=== PATIENT | male | born 1955 | race Caucasian/White ===

== ENCOUNTER 2024-02-28 11:47 | Outpatient (CLI) | payer MEDICARE, BC, SELFPAY ==
--- OUTSIDE RECORDS SUMMARY | 2024-03-04 03:46 | XMS_ITS | Clinical Summary ---
Author Name Unknown Organization [facility] Address [address] [place] [id number] Care Team Providers Care Hitch Technician Name Role Phone Nathalie Tate MD Unavailable [phone] Nathalie Tate MD Primary Care Provider [phone] Allergies Active Allergy Reactions Criticality Noted Date Comments Donepezil Diarrhea Medium 12/08/2023 Hospitalized for diarrhea/dehydration Sulfa Antibiotics Rash Low 03/16/2009 Medications Medication Sig Dispensed Refills Start Date End Date Status Multiple Vitamins-Iron (TAB-A-CATRACHO/IRON) TABSIndications:A lcoholism (H) Take 1 capsule by mouth daily 100 tablet 3 06/03/2019 Suspended Additional Information tamsulosin (FLOMAX) 0.4 MG capsule Take 0.8 mg by mouth every evening 03/17/2020 Suspended thiamine (B-1) 100 MG tablet Take 100 mg by mouth every evening Suspended escitalopram (LEXAPRO) 20 MG tablet Take 60 mg by mouth every evening 01/31/2022 Suspended vitamin D2 (ERGOCALCIFEROL) 48817 units (1250 mcg) capsuleIndication s:Alcoholism (H) Take 1 capsule by mouth once a week 12 capsule 1 10/06/2023 Suspended Additional Information Patient taking differently:50,000 Units Oral WEEKLY,On Saturdays, Reported on 12/25/2023 cyanocobalamin (CYANOCOBALAMIN) 1000 MCG/ML injection Inject 1 mL into the muscle every 30 days Suspended aspirin 81 MG EC tablet Take 81 mg by mouth every morning Suspended phenylephrine (LEATHA-SYNEPHRINE) 1 % nasal spray [place] 1 drop into both nostrils daily as needed for congestion Suspended disulfiram (ANTABUSE) 250 MG tabletIndications :Alcoholism (H) Take 1 tablet (250 mg) by mouth daily 90 tablet 12/31/2023 Suspended Additional Information atorvastatin (LIPITOR) 80 MG tabletIndications :Cerebrovascular accident (CVA), unspecified mechanism (H),Alcoholism (H) Take 1 tablet (80 mg) by mouth every evening 90 tablet 12/31/2023 Suspended Additional Information midodrine (PROAMATINE) 2.5 MG tablet Take 1 tablet by mouth 3 times daily 02/02/2024 Suspended Active Problems Problem Noted Date Diagnosed Date Orthostatic hypotension 02/28/2024 Near syncope 02/28/2024 Stroke 12/24/2023 Dehydration 12/09/2023 Confusion 12/09/2023 Elevated troponin 12/09/2023 Hematuria, unspecified type 12/09/2023 Hypotension, unspecified hypotension type 2021 Syncope, unspecified syncope type 01/19/2022 Anemia, unspecified type 01/19/2022 Acute renal failure superimp osed on chronic kidney disease (H24) 01/19/2022 Unsteady gait when walking 06/21/2021 Loss of motivation 06/21/2021 Dementia 03/20/2021 CKD (chronic kidney disease) stage 3, GFR 30-59 ml/min 12/16/2019 Acute kidney injury (H24) 08/16/2019 Cognitive communication deficit 08/06/2019 History of CVA (cerebrovascu lar accident)--followed by neurology 08/06/2019 Overview: 10/06/2018 Substance induced mood disorder 09/10/2018 Recurrent major depressive disorder (H)- Dr. 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 Provider to review [facility] 09/07/2012 Overview: State Tier Level: Tier 1 Status: n/a Quality Engineer Medical Device: n/a See Letters for [facility] Care Plan Essential hypertension, benign 03/16/2009 Mixed hyperlipidemia 03/16/2009 Personal history of tobacco use, presenting hazards to health 03/16/2009 Migraine 03/26/2003 Overview: Migraine Without Aura Eczema ED (erectile dysfunction)--followed by urology Prediabetes Resolved Problems Problem Noted Date Diagnosed Date Resolved Date Depression 06/21/2021 06/20/2023 Dehydration 04/06/2019 11/19/2021 Major depressive disorder, r ecurrent episode, moderate (H)-DR Valencia 12/24/2017 05/08/2018 SILVANO (acute kidney injury) (H24) 02/06/2017 03/18/2017 Hypomagnesemia 02/06/2017 03/18/2017 Hypokalemia 02/06/2017 03/18/2017 Serum lipase elevation 02/06/201703/18 Alcohol addiction 08/18/2015 03/18/2017 Alcohol dependence in remission 04/05/2015 05/08/2018 Delirium tremens 03/21/2015 03/18/2017 Major depressive disorder, s beverly episode, moderate (H)-Dr Stephens 01/30/2015 12/24/2017 ACP (advance care planning) 08/25/2013 10/26/2018 Overview: Advance Care Planning 06/20/2015: Receipt of ACP document: Received: Health Care Directive which was witnessed or notarized on 03/23/2015. Document not previously scanned. Validation form completed and sent with document to be scanned. Code Status reflects choices in most recent ACP document. Confirmed/documented designated decision maker(s). Added by Porsche Palencia Advance Care Plannin-29-14 ACP Review and Resources Provided: Reviewed chart for advance care plan. Jed Alamo has no plan or code status on file. Discussed available resources and provided with information. Confirmed code status reflects current choices pending further ACP discussions. Confirmed/documented designated decision maker(s). See permanent comments section of demographics in clinical tab. Added by Venita Gutiérrez 02/14/2012 03/06/2012 Overview: Problem list name updated by automated process. Provider to review HTN (hypertension), benign 0 03/16/2009 Hyperlipidemia 03/16/2009 Myasthenia gravis 10/02/2015 Overview: neurology, Dr. Martínez Alcohol abuse, in remission 04/05/2015 Overview: AA weekly Encounters Date Type Department Care Team Description 02/28/2024 12:32 PM CDT - Present Hospital Encounter [facility] [address] [facility] [address] [place] [phone] Khadar Jones MD Wu Klasek, Connie, MD Chen, Isaac Amos MD Moderate dementia associated with alcoholism, without behavioral disturbance, psychotic disturbance, mood disturbance, or anxiety (H) (Primary Dx); Orthostatic hypotension; Near syncope 02/28/2024 Travel 01/29/2024 Telephone [facility] [address] [place] [address] [place] [phone] Nathalie Tate MD Orders (Private Equity Associate) 12/31/2023 4:45 PM CDT Office Visit [facility] [address] [place] [address] Nathalie Tate MD History of CVA (cerebrovascular accident) (Primary Dx); Cerebrovascular accident (CVA), unspecified mechanism (H); Chemical dependency (H); Alcoholism (H) 12/31/2023 Travel 12/30/2023 Telephone [facility] [address] [place] [phone] Nathalie Tate MD Home Care/Hospice ([facility]); Updated Home Care Orders 12/29/2023 Care Coordination [facility] [address] [place] [phone] Nathalie Tate MD Clinic Care Coordination - Post Hospital (CVA) 12/29/2023 MyC Medical Advice [facility] [address] [place] [phone] Conchita Mayo CMA 12/25/2023 9:09 AM PIN INSERTER - 12/25/2023 11:59 PM PIN INSERTER Hospital Encounter [facility] [address] [phone] Marco Watson DO Muthyala, Abijah Hemraj, MD Discharge Disposition: Home or Self Care 12/24/2023 10:04 PM PIN INSERTER - 12/28/2023 11:29 AM CDT Hospital Encounter [facility] [address] [phone] Marco Watson, Brooke Rodriguez MD Cerebrovascular accident (CVA), unspecified mechanism (H) (Primary Dx); Imbalance due to old stroke Discharge Disposition: Home-Health Care Svc 12/24/2023 5:28 PM PIN INSERTER - 12/24/2023 9:33 PM PIN INSERTER Emergency [facility] Emergency Dept [address] [place] [address] Cali Cedillo MD Acute ischemic stroke (H) Discharge Disposition: Another Health Care Institution with Planned Hospital IP Readmission 12/24/2023 Travel 12/17/2023 Telephone [facility] [address] [place] [phone] Nathalie Tate MD 12/16/2023 3:00 PM PIN INSERTER Office Visit [facility] [address] [place] [phone] Clementine Tabares PA-C Dementia, unspecified dementia severity, unspecified dementia type, unspecified whether behavioral, psychotic, or mood disturbance or anxiety (H) (Primary Dx); Dehydration; Unsteady gait when walking; Hematuria, unspecified type; Nephrolithiasis; Pulmonary nodules; History of CVA (cerebrovascular accident); Stage 3 chronic kidney disease, unspecified whether stage 3a or 3b CKD (H); Alcoholism (H); [facility] 12/16/2023 Travel 12/16/2023 Telephone [facility] [address] [place] [address] Nathalie Tate MD Orders ([facility]) 12/12/2023 Care Coordination [facility] [address] [place] [phone] Nathalie Tate MD Clinic Care Coordination - Post Hospital (Unsteady gait, hematuria, dehydration) 12/09/2023 12:30 PM PIN INSERTER - 12/11/2023 2:12 PM PIN INSERTER [facility] Observation Dept [address] [place] [address] Akash Ramirez MD Richardson, Elizabeth, MD Dalsanto, Mariposa Ronquillo MD Unsteady gait when walking (Primary Dx); Dehydration; Syncope, unspecified syncope type; Confusion; Elevated troponin; Hematuria, unspecified type; Dementia (H); Nephrolithiasis Discharge Disposition: Home or Self Care 12/09/2023 Travel from Last 3 Months Immunizations Name Administration Dates Next Due COVID-19 MONOVALENT 12+ (Pfizer) 01/22/2021,12/18 Influenza (H1N1) 09/20/2009 Influenza (IIV3) PF 08/11/2013,09/07/2012,2008 Influenza Vaccine >6 months,quad, PF ,07/27/2020,09/13/2019,2017,08/23/2015 Pneumococcal 23 valent 11/19/2021,08/23/2015 TD,PF 7+ (Tenivac) 10/20/2006,11/19/2003 TDAP Vaccine (Adacel) 12/09/2018 TDAP Vaccine (Boostrix) 03/12/2012 Zoster recombinant adjuvante d (SHINGRIX) 12/16/2019,10/17/2019 Family History Medical History Relation Comments Anxiety Disorder Daughter 1 Hypertension Father Other Cancer Father esophageal Cerebrovascular Disease Mother Hypertension Mother Anxiety Disorder Sister 1 Psychotic Disorder Sister 2 anxiety Depression/Anxiety Sister 3 Autism Spectrum Disorder No family hx of Bipolar Disorder No family hx of C.A.D. No family hx of Cancer - colorectal No family hx of Dementia No family hx of Depression No family hx of Diabetes No family hx of Starr Disease No family hx of Intellectual Disability No family hx of Mental Illness No family hx of Parkinsonism No family hx of Prostate Cancer No family hx of Schizophrenia No family hx of Substance Abuse No family hx of Suicide No family hx of Unknown/Adopted No family hx of Relation Status Comments Daughter 1 Alive Daughter 2 Alive Father Alive Maternal Grandfather Maternal Grandmother Mother CVA Paternal Grandfather Paternal Grandmother Sister 1 Alive Sister 2 Sister 3 Social History Tobacco Use Types Packs/Day Years Used Date Smoking Tobacco: Former Cigarettes 0.5 54.4 S tarted: 10/20/1969 Other Passive Smoke Exposure: Past Smokeless Tobacco: Never Tobacco Cessation:Counseling Given: Not Answered Comments:Recently stopped 12/09/23 Alcohol Use Standard Drinks/Week Comments No 0 (1 standard drink = 0.6 oz pure alcohol) 100ml or more daily; recent relapse 08/18/15 PHQ-2 Answer Date Recorded PHQ-2 Score 1 08/07/2022 Adolescent Education Answer Date Record ed Getting School Help Needed Not on file 07/21 Sex and Gender Information Value Date Recorded Sex Assigned at Not on file Gender Identity Not on file Sexual Orientation Not on file Last Filed Vital Signs Vital Sign Reading Time Taken Comments Blood Pressure 157/72 03/03/2024 8:57 PM CDT Pulse 61 03/03/2024 8:57 PM CDT Temperature 36.8 ??C (98.3 ??F) 03/03/2024 8:57 PM CD T Respiratory Rate 18 03/03/2024 8:57 PM CDT Oxygen Saturation 100% 03/03/2024 8:57 PM CDT Inhaled Oxygen Concentration - - Weight 68.7 kg (151 lb 6.4 oz) 03/03/2024 6:23 A M CDT Height 175.3 cm (5' 9) 02/29/2024 1:15 AM CDT Body Mass Index 22.36 02/29/2024 1:15 AM CDT Plan of Treatment Health Maintenance Due Date Last Done Comments ANNUAL REVIEW OF HM ORDERS 1955 CT COLONOGRAPHY 1956 DEPRESSION ACTION PLAN 1956 FLEX SIG 1956 sDNA (Cologuard) 1955 HEPATITIS A IMMUNIZATION (1 of 2 - Risk 2-dose series) 1975 RSV VACCINE ( & 60+) (1 - 1-dose 60+ series) 2016 FIT 01/20/2023 01/20/2022 PHQ-9 02/05/2023 08/07/2022, 01/19, 09/13/2019, Additional history exists COLONOSCOPY 05/09/2024 05/09/2014 COLORECTAL CANCER SCREENING 05/09/2024 INFLUENZA VACCINE (Season Ended) 2024 08/07/2021, 07/27/2020, 09/13/2019, Additional history exists MEDICARE ANNUAL WELLNESS VISIT 06/20/2024 06/20/2023, 05/07/2018 MICROALBUMIN 06/20/2024 06/20/2023 Pneumococcal Vaccine: 65+ Years (2 of 2 - PCV) 06/20/2024 11/19/2021, 08/23/2015 Postponed from 11/19/2022 (Patient Declined) LUNG CANCER SCREENING 08/05/2024 08/05/2023 , 02/06/2017, 08/19/2015 FALL RISK ASSESSMENT 12/16/2024 12/16/2023, 08/07/2022, 12/09/2018, Additional history exists LIPID 12/23/2024 12/24/2023, 09/0 10/2022, 08/07/2022, Additional history exists BMP 03/03/2025 03/03/2024, 02/17, 03/01/2024, Additional history exists HEMOGLOBIN 03/03/2025 03/03/2024, 02/17, 03/01/2024, Additional history exists GLUCOSE 03/03/2027 03/03/2024, 02/17, 03/01/2024, Additional history exists DTAP/TDAP/TD IMMUNIZATION (3 - Td or Tdap) 12/09/2028 12/09/2018, 03/12/2012, 10/20/2006, Additional history exists ADVANCE CARE PLANNING 12/16/2028 12/16/2023 , 10/26/2018, 10/26/2018, Additional history exists COVID-19 Vaccine (2022- season) 2028 03/07/2022, 09/05/2021, 01/22/2021, Additional history exists Postponed from 06/20/2023 (Not Able to Schedule At This Time) ZOSTER IMMUNIZATION Completed 12/16/2019, 9 HEPATITIS C SCREENING Completed 01/20/2022 , 01/19/2022, 10/31/2015 AORTIC ANEURYSM SCREENING (SYSTEM ASSIGNED) Completed 12/09/2023, 08/16/2019, 02/06/2017, Additional history exists URINALYSIS Completed 12/09/2023, 11/2021, 02/07/2017, Additional history exists HPV IMMUNIZATION Aged Out No longer e ligible based on patient's age to complete this topic IPV IMMUNIZATION Aged Out No longer e ligible based on patient's age to complete this topic MENINGITIS IMMUNIZATION Aged Out No l onger eligible based on patient's age to complete this topic RSV MONOCLONAL ANTIBODY Aged Out No l onger eligible based on patient's age to complete this topic Goals Goal Patient Goal Type Associated Problems Recent Progress Patient-Stated? Author Transportation General On track( 019 3:46 PM PIN INSERTER) Yes Nani Sainz LSW Note: Goal Statement: Caregiver will learn of options for transportation and volunteer respite services. Measure of Success: Caregiver will know if options are available. Supportive Steps to Achieve: CC will send resources via text and caregiver will call. Barriers: recently moved home after rehab. Strengths: Caregiver works, just started with adult [employer] [facility] today, 1-9 Date to Achieve By: January 17, 2019 Patient expressed understanding of goal: caregiver understands. Procedures The patient is currently admitted. The information in this section might not be complete until the patient is discharged. Procedure Name Priority Date/Time Associated Diagnosis Comments CBC WITH PLATELETS Routine 03/03/2024 1: 00 PM CDT BASIC METABOLIC PANEL Routine 03/03/2024 12:59 PM CDT FOLATE Routine 03/02/2024 10:45 AM CDT CBC WITH PLATELETS Routine 03/02/2024 10 :45 AM CDT BASIC METABOLIC PANEL Routine 03/02/2024 10:45 AM CDT VITAMIN B12 Add-On 03/01/2024 12:50 PM CDT TSH WITH FREE T4 REFLEX Add-On 03/01/2024 12:50 PM CDT CBC WITH PLATELETS Routine 03/01/2024 12 :50 PM CDT BASIC METABOLIC PANEL Routine 03/01/2024 12:50 PM CDT CBC WITH PLATELETS & DIFFERENTIAL Routine 02/29/2024 5:44 AM CDT CBC WITH PLATELETS AND DIFFERENTIAL Routine 02/29/2024 5:44 AM CDT BASIC METABOLIC PANEL Routine 02/29/2024 5:44 AM CDT MR BRAIN W/O & W CONTRAST STAT 02/28/2024 10:19 PM CDT CTA HEAD NECK W CONTRAST STAT 02/28/2024 5:[address] HEAD W/O CONTRAST STAT 02/28/2024 5:47 PM CDT AMMONIA STAT 02/28/2024 4:33 PM CDT CBC WITH PLATELETS & DIFFERENTIAL STAT 02/28/2024 1:00 PM CDT EXTRA RED TOP TUBE STAT 02/28/2024 1: 00 PM CDT EXTRA BLUE TOP TUBE STAT 02/28/2024 1 :00 PM CDT CBC WITH PLATELETS AND DIFFERENTIAL STAT 02/28/2024 1:00 PM CDT TROPONIN T, HIGH SENSITIVITY STAT 02/28/2024 1:00 PM CDT ETHYL ALCOHOL LEVEL STAT 02/28/2024 1 :00 PM CDT COMPREHENSIVE METABOLIC PANEL STAT 02/28/2024 1:00 PM CDT EXTRA TUBE STAT 02/28/2024 1:00 PM CDT IA COLLECTION VENOUS BLOOD VENIPUNCTURE Routine 12/31/2023 4:55 PM CDT History of CVA (cerebrovascular accident) COMPREHENSIVE METABOLIC PANEL (BFP) Routine 12/31/2023 History of CVA (cerebrovascular accident) HEMOGRAM PLATELET DIFF (BFP) Routine 12/31/2023 History of CVA (cerebrovascular accident) GLUCOSE BY METER Routine 12/28/2023 8:20 AM CDT GLUCOSE BY METER Routine 12/28/2023 12:0 8 AM PIN INSERTER BASIC METABOLIC PANEL Routine 12/27/2023 7:46 AM PIN INSERTER GLUCOSE BY METER Routine 12/26/2023 10:0 8 PM PIN INSERTER GLUCOSE BY METER Routine 12/26/2023 5:25 PM PIN INSERTER GLUCOSE BY METER Routine 12/26/2023 12:0 9 PM PIN INSERTER GLUCOSE BY METER Routine 12/26/2023 7:41 AM PIN INSERTER GLUCOSE BY METER Routine 12/26/2023 1:56 AM PIN INSERTER GLUCOSE BY METER Routine 12/25/2023 10:[address] HEAD W/O CONTRAST Routine 12/25/2023 7:00 PM PIN INSERTER GLUCOSE BY METER Routine 12/25/2023 1:36 PM PIN INSERTER EEG AWAKE OR DROWSY ROUTINE Routine 12/25/2023 11:21 AM PIN INSERTER GLUCOSE BY METER Routine 12/25/2023 8:49 AM PIN INSERTER ECHO COMPLETE Routine 12/25/2023 8:16 AM PIN INSERTER EKG 12-LEAD, TRACING ONLY Routine 12/25/2023 6:38 AM PIN INSERTER PARTIAL THROMBOPLASTIN TIME Routine 12/25/2023 5:21 AM PIN INSERTER INR Routine 12/25/2023 5:21 AM PIN INSERTER BASIC METABOLIC PANEL Routine 12/25/2023 5:21 AM PIN INSERTER CBC WITH PLATELETS Routine 12/25/2023 5: 21 AM PIN INSERTER MR BRAIN W/O CONTRAST Routine 12/25/2023 4:14 AM PIN INSERTER LIPID REFLEX TO DIRECT LDL PANEL STAT 12/24/2023 11:28 PM PIN INSERTER HEMOGLOBIN A1C STAT 12/24/2023 11:28 PM PIN INSERTER GLUCOSE BY METER Routine 12/24/2023 11:0 9 PM PIN INSERTER EKG 12-LEAD, TRACING ONLY STAT 12/24/2023 6:55 PM PIN INSERTER AMMONIA STAT 12/24/2023 5:56 PM PIN INSERTER CTA HEAD NECK W CONTRAST STAT 12/24/2023 5:[address] HEAD W/O CONTRAST STAT 12/24/2023 5:48 PM PIN INSERTER CBC WITH PLATELETS & DIFFERENTIAL STAT 12/24/2023 5:42 PM PIN INSERTER HEPATIC FUNCTION PANEL STAT 5:42 PM PIN INSERTER ETHYL ALCOHOL LEVEL STAT 12/24/2023 5 :42 PM PIN INSERTER CBC WITH PLATELETS AND DIFFERENTIAL STAT 12/24/2023 5:42 PM PIN INSERTER TROPONIN T, HIGH SENSITIVITY STAT 12/24/2023 5:42 PM PIN INSERTER PARTIAL THROMBOPLASTIN TIME STAT 12/24/2023 5:42 PM PIN INSERTER INR STAT 12/24/2023 5:42 PM PIN INSERTER BASIC METABOLIC PANEL STAT 12/24/2023 5:42 PM PIN INSERTER GLUCOSE BY METER STAT 12/24/2023 5:38 PM PIN INSERTER MAGNESIUM Routine 12/11/2023 5:00 AM PIN INSERTER PHOSPHORUS Routine 12/11/2023 5:00 AM PIN INSERTER POTASSIUM Routine 12/11/2023 5:00 AM PIN INSERTER MAGNESIUM Timed 12/10/2023 1:45 PM PIN INSERTER CBC WITH PLATELETS & DIFFERENTIAL STAT 12/10/2023 5:52 AM PIN INSERTER CBC WITH PLATELETS AND DIFFERENTIAL STAT 12/10/2023 5:52 AM PIN INSERTER MAGNESIUM Routine 12/10/2023 5:52 AM PIN INSERTER PHOSPHORUS Routine 12/10/2023 5:52 AM PIN INSERTER HEPATIC FUNCTION PANEL Routine 5:52 AM PIN INSERTER BASIC METABOLIC PANEL Routine 12/10/2023 5:52 AM PIN INSERTER MR BRAIN W/O & W CONTRAST STAT 12/09/2023 9:30 PM PIN INSERTER INFLUENZA A/B, RSV, & SARS-COV2 PCR STAT 12/09/2023 8:18 PM PIN INSERTER XR CHEST 2 VIEWS STAT 12/09/2023 3:44 PM PIN INSERTER TROPONIN T, HIGH SENSITIVITY STAT 12/09/2023 3:[address] ABDOMEN PELVIS W/O CONTRAST STAT 12/09/2023 2:[address] HEAD W/O CONTRAST STAT 12/09/2023 2:53 PM PIN INSERTER EKG 12-LEAD, TRACING ONLY STAT 12/09/2023 2:19 PM PIN INSERTER BLOOD CULTURE STAT 12/09/2023 1:52 PM PIN INSERTER CBC WITH PLATELETS & DIFFERENTIAL STAT 12/09/2023 1:15 PM PIN INSERTER BLOOD CULTURE STAT 12/09/2023 1:15 PM PIN INSERTER D DIMER QUANTITATIVE STAT 12/09/2023 1:15 PM PIN INSERTER ETHYL ALCOHOL LEVEL STAT 12/09/2023 1 :15 PM PIN INSERTER MAGNESIUM Add-On 12/09/2023 1:15 PM PIN INSERTER EXTRA RED TOP TUBE STAT 12/09/2023 1: 15 PM PIN INSERTER EXTRA BLUE TOP TUBE STAT 12/09/2023 1 :15 PM PIN INSERTER CBC WITH PLATELETS AND DIFFERENTIAL STAT 12/09/2023 1:15 PM PIN INSERTER EXTRA TUBE STAT 12/09/2023 1:15 PM PIN INSERTER LACTIC ACID WHOLE BLOOD STAT 12/09/2023 1:15 PM PIN INSERTER KETONE BETA-HYDROXYBUTYRATE QUANTITATIVE, RAPID STAT 12/09/2023 1:15 PM PIN INSERTER CK TOTAL STAT 12/09/2023 1:15 PM PIN INSERTER TROPONIN T, HIGH SENSITIVITY STAT 12/09/2023 1:15 PM PIN INSERTER BASIC METABOLIC PANEL STAT 12/09/2023 1:15 PM PIN INSERTER EKG 12-LEAD, TRACING ONLY STAT 12/09/2023 1:07 PM PIN INSERTER GLUCOSE BY METER STAT 12/09/2023 1:06 PM PIN INSERTER URINE CULTURE Add-On 12/09/2023 12:55 PM PIN INSERTER ROUTINE UA WITH MICROSCOPIC REFLEX TO CULTURE STAT 12/09/2023 12:[address] CHEST LUNG CANCER SCREEN LOW DOSE WITHOUT Routine 08/05/2023 Personal history of tobacco use ALBUMIN RANDOM URINE QUANTITATIVE (BFP) Routine 06/20/2023 Stage 3 chronic kidney disease, unspecified whether stage 3a or 3b CKD (H) OCCULT BLOOD STOOL 1-3 SPEC Routine 01/20/2022 10:57 AM CDT HEPATITIS C ANTIBODY Routine 01/20/2022 1:02 AM CDT ZZHC COLONOSCOPY W BIOPSY Routine 05/09/2014 SCANNING RESULTS from Last 3 Months or Most Recently Relevant to Health Maintenance Results * (ABNORMAL) CBC with platelets (03/03/2024 1:00 PM CDT) Only the most recent of4 resultswithin the time period is included. WBC Count 6.9 4.0 - 11.0 10e3/uL 03/03/2024 2:02 PM CDT LABORATORY RBC Count 4.27(L) 4.40 - 5.90 10e6/uL 03/03/2024 2:02 PM CDT LABORATORY Hemoglobin 13.0(L) 13.3 - 17.7 g/dL 03/03/2024 2:02 PM CDT LABORATORY Hematocrit 39.4(L) 40.0 - 53.0 % 03/03/2024 2:02 PM CDT LABORATORY MCV 92 78 - 100 fL 03/03/2024 2:02 PM CDT LABORATORY MCH 30.4 26.5 - 33.0 pg 03/03/2024 2:02 PM CDT LABORATORY MCHC 33.0 31.5 - 36.5 g/dL 03/03/2024 2:02 PM CDT LABORATORY RDW 13.3 10.0 - 15.0 % 03/03/2024 2:02 PM CDT LABORATORY Platelet Count 219 150 - 450 10e3/uL 03/03/2024 2:02 PM CDT LABORATORY Blood BLOOD SPECIMEN / Unknown Venipuncture / Unknown 03/03/2024 1:00 PM CDT 03/03/2024 1:13 PM CDT Margarita Manrique MD LAB - BLOO D ORDERABLES LABORATORY [facility] [address] 1[address] floor, [address] [place] [address], [facility] [phone] * (ABNORMAL) Basic metabolic panel (03/03/2024 12:59 PM CDT) Only the most recent of9 resultswithin the time period is included. [facility] Sodium 141 135 - 145 mmol/L 03/03/2024 1:50 PM CDT LABORATORY Comment:Reference intervals for this test were updated on 07/15/2023 to more accurately reflect our healthy population. There may be differences in the flagging of prior results with similar values performed with this method. Interpretation of those prior results can be made in the context of the updated reference intervals. Potassium 4.2 3.4 - 5.3 mmol/L 03/03/2024 1:50 PM CDT LABORATORY Chloride 111(H) 98 - 107 mmol/L 03/03/2024 1:50 PM CDT LABORATORY Carbon Dioxide (CO2) 20(L) 22 - 29 mmol/L 03/03/2024 1:50 PM CDT LABORATORY Anion Gap 10 7 - 15 mmol/L 03/03/2024 1:50 PM CDT LABORATORY Urea Nitrogen 24.7(H) 8.0 - 23.0 mg/dL 03/03/2024 1:50 PM CDT LABORATORY Creatinine 1.30(H) 0.67 - 1.17 mg/dL 03/03/2024 1:50 PM CDT LABORATORY GFR Estimate 60(L) >60 mL/min/1. 73m2 03/03/2024 1:50 PM CDT LABORATORY Calcium 9.2 8.8 - 10.2 mg/dL 03/03/2024 1:50 PM CDT LABORATORY Glucose 109(H) 70 - 99 mg/dL 03/03/2024 1:50 PM CDT LABORATORY Blood BLOOD SPECIMEN / Unknown Venipuncture / Unknown 03/03/2024 12:59 PM CDT 03/03/2024 1:13 PM CDT Margarita Manrique MD LAB - BLOO D ORDERABLES LABORATORY [facility] [address] 1[address] floor, [address] [place] [address], [facility] [phone] * Folate (03/02/2024 10:45 AM CDT) [facility] Folic Acid 25.6 4.6 - 34.8 ng/mL 03/02/2024 2:29 PM CDT [facility] LABORATORY Blood STRUCTURE OF RIGHT UPPER LIMB / Unknown Venipuncture / Unknown 03/02/2024 10:45 AM CDT 03/02/2024 11:09 AM CDT Margarita Manrique MD LAB - BLOO D ORDERABLES LABORATORY [facility] [place] [facility] [address] [facility], [address] [phone] * TSH with free T4 reflex (03/01/2024 12:50 PM CDT) TSH 0.46 0.30 - 4.20 uIU/mL 03/01/2024 5:22 PM CDT LABORATORY Blood STRUCTURE OF RIGHT UPPER LIMB / Unknown Venipuncture / Unknown 03/01/2024 12:50 PM CDT 03/01/2024 1:07 PM CDT Margarita Manrique MD LAB - BLOO D ORDERABLES LABORATORY [facility] [address] 1[address] floor, [address] [place] [address], [facility] [phone] * Vitamin B12 (03/01/2024 12:50 PM CDT) Pathologist [facility] Vitamin B12 1,058 232 - 1,245 pg/mL 03/01/2024 9:57 PM CDT LABORATORY Blood STRUCTURE OF RIGHT UPPER LIMB / Unknown Venipuncture / Unknown 03/01/2024 12:50 PM CDT 03/01/2024 1:07 PM CDT Margarita Manrique MD LAB - BLOO D ORDERABLES LABORATORY [facility] [place] [facility] [address] [facility], [address] [phone] * (ABNORMAL) CBC with platelets and differential (02/29/2024 5:44 AM CDT) Only the most recent of5 resultswithin the time period is included. WBC Count 7.6 4.0 - 11.0 10e3/uL 02/29/2024 7:00 AM [facility] LABORATORY RBC Count 3.83(L) 4.40 - 5.90 10e6/uL 02/29/2024 7:00 AM [facility] Hemoglobin 11.6(L) 13.3 - 17.7 g/dL 02/29/2024 7:00 AM [facility] LABORATORY Hematocrit 34.9(L) 40.0 - 53.0 % 02/29/2024 7:00 AM [facility] LABORATORY MCV 91 78 - 100 fL 02/29/2024 7:00 AM [facility] LABORATORY MCH 30.3 26.5 - 33.0 pg 02/29/2024 7:00 AM [facility] MCHC 33.2 31.5 - 36.5 g/dL 02/29/2024 7:00 AM [facility] LABORATORY RDW 13.1 10.0 - 15.0 % 02/29/2024 7:00 AM [facility] LABORATORY Platelet Count 183 150 - 450 10e3/uL 02/29/2024 7:00 AM [facility] LABORATORY % Neutrophils 61 % 02/29/2024 7:00 AM [facility] LABORATORY % Lymphocytes 27 % 02/29/2024 7:00 AM [facility] LABORATORY % Monocytes 8 % 02/29/2024 7:00 AM [facility] LABORATORY % Eosinophils 3 % 02/29/2024 7:00 AM [facility] LABORATORY % Basophils 1 % 02/29/2024 7:00 AM [facility] LABORATORY % Immature Granulocytes 0 % 02/29/2024 7:00 AM [facility] LABORATORY NRBCs per 100 WBC 0 <1 /100 024 7:00 AM [facility] LABORATORY Absolute Neutrophils 4.7 1.6 - 8.3 10e3/uL 02/29/2024 7:00 AM [facility] Absolute Lymphocytes 2.1 0.8 - 5.3 10e3/uL 02/29/2024 7:00 AM [facility] Absolute Monocytes 0.6 0.0 - 1.3 10e3/uL 02/29/2024 7:00 AM [facility] LABORATORY Absolute Eosinophils 0.2 0.0 - 0.7 10e3/uL 02/29/2024 7:00 AM [facility] Absolute Basophils 0.1 0.0 - 0.2 10e3/uL 02/29/2024 7:00 AM CDT LABORATORY Absolute Immature Granulocytes 0.0 <=0.4 10e3/uL 02/29/2024 7:00 AM CDT LABORATORY Absolute NRBCs 0.0 10e3/uL 02/29/2024 7:00 AM CDT LABORATORY Blood STRUCTURE OF RIGHT HAND / Unknown Venipuncture / Unknown 02/29/2024 5:44 AM CDT 02/29/2024 6:51 AM CDT Isaac Cunningham MD LAB - BLOOD ORDER [place]ANT[place] LABORATORY [facility] [address] 1[address], [address] [place] [address], [facility] [phone] * MR Brain w/o & w Contrast (02/28/2024 10:19 PM CDT) Only the most recent of2 resultswithin the time period is included. Anatomical Region Laterality Modality Head, SUBRAD MR NEURO, UMP MR NEURO, RAD MR Magnetic Resonance 02/28/2024 10:1 9 PM CDT Impressions 02/28/2024 10:36 PM CDT IMPRESSION: 1. ??No acute infarct, mass, mass effect, or acute hemorrhage. 2. ??Chronic ischemic changes, as described. 3. ??Moderate atrophy. Narrative 02/28/2024 10:36 PM CDT EXAM: MR BRAIN W/O and W CONTRAST LOCATION: [facility] DATE: 02/28/2024 INDICATION: Patient with altered mental status, confusion COMPARISON: CT head 02/28/2024, MRI head 12/25/2023 CONTRAST: 7mls Gadavist TECHNIQUE: Routine multiplanar multisequence head MRI without and with intravenous contrast. FINDINGS: INTRACRANIAL CONTENTS: No acute or subacute infarct. No mass, acute hemorrhage, or extra-axial fluid collections. Patchy and confluent nonspecific T2/FLAIR hyperintensities within the cerebral white matter most consistent with moderate chronic microvascular ischemic change. Moderate generalized cerebral atrophy. No hydrocephalus. Normal position of the cerebellar tonsils. No pathologic contrast enhancement. Small chronic infarctions left cerebellum. Chronic lacunar infarctions both thalami. Chronic lacunar infarctions right basal ganglia. SELLA: Partially empty sella. OSSEOUS STRUCTURES/SOFT TISSUES: Normal marrow signal. The major intracranial vascular flow voids are maintained. ORBITS: No abnormality accounting for technique. SINUSES/MASTOIDS: No paranasal sinus mucosal disease. No middle ear or mastoid effusion. Procedure Note Angel Molina MD - 02/28/2024 EXAM: MR BRAIN W/O and W CONTRAST LOCATION: [facility] DATE: 02/28/2024 INDICATION: Patient with altered mental status, confusion COMPARISON: CT head 02/28/2024, MRI head 12/25/2023 CONTRAST: 7mls Gadavist TECHNIQUE: Routine multiplanar multisequence head MRI without and withintravenous contrast. FINDINGS: INTRACRANIAL CONTENTS: No acute or subacute infarct. No mass, acutehemorrhage, or extra-axial fluid collections. Patchy and confluentnonspecific T2/FLAIR hyperintensities within the cerebral white mattermost consistent with moderate chronic microvascular ischemic change. Moderate generalized cerebral atrophy. Nohydrocephalus. Normal position of the cerebellar tonsils. No pathologiccontrast enhancement. Small chronic infarctions left cerebellum. Chroniclacunar infarctions both thalami. Chronic lacunar infarctions right basal ganglia. SELLA: Partially empty sella. OSSEOUS STRUCTURES/SOFT TISSUES: Normal marrow signal. The majorintracranial vascular flow voids are maintained. ORBITS: No abnormality accounting for technique. SINUSES/MASTOIDS: No paranasal sinus mucosal disease. No middle ear ormastoid effusion. IMPRESSION: 1. No acute infarct, mass, mass effect, or acute hemorrhage. 2. Chronic ischemic changes, as described. 3. Moderate atrophy. Susie Irwin MD IMG MRI ORDERABLES * CTA Head Neck with Contrast (02/28/2024 5:48 PM CDT) Only the most recent of2 resultswithin the time period is included. Anatomical Region Laterality Modality Head, SUBRAD CT NEURO, SUBRA D CT NEURO, UMP CT NEURO, RAD CT Computed Tomography 02/28/2024 5:48 PM CDT Impressions 02/28/2024 6:25 PM CDT IMPRESSION: HEAD CTA: 1. ??Short segment moderate to marked narrowing distal left P2. 2. ??Remaining intracranial circulation appears normal NECK CTA: 1. ??No definite hemodynamically significant narrowing throughout major neck vessels. Narrative 02/28/2024 6:25 PM CDT EXAM: CTA HEAD NECK W CONTRAST LOCATION: [facility] DATE: 02/28/2024 INDICATION: Change in mental status, confusion COMPARISON: None. CONTRAST: 67 mL [id number] TECHNIQUE: Head and neck CT angiogram with IV contrast. Axial helical CT images of the head and neck vessels obtained during the arterial phase of intravenous contrast administration. Axial 2D reconstructed images and multiplanar 3D MIP reconstructed images of the head and neck vessels were performed by the technologist. Dose reduction techniques were used. All stenosis measurements made according to NASCET criteria unless otherwise specified. FINDINGS: HEAD CTA: ANTERIOR CIRCULATION: No stenosis/occlusion, aneurysm, or high flow vascular malformation. origin posterior cerebral arteries bilaterally. POSTERIOR CIRCULATION: Short segment moderate to marked narrowing distal left P2. Balanced vertebral arteries supply a normal basilar artery. DURAL VENOUS SINUSES: Expected enhancement of the major dural venous sinuses. NECK CTA: RIGHT CAROTID: Less than 50% narrowing. LEFT CAROTID: Less than 50% narrowing. VERTEBRAL ARTERIES: No focal stenosis or dissection. Balanced vertebral arteries. AORTIC ARCH: Classic aortic arch anatomy with no significant stenosis at the origin of the great vessels. NONVASCULAR STRUCTURES: Unremarkable. Procedure Note Angel Molina MD - 02/28/2024 EXAM: CTA HEAD NECK W CONTRAST LOCATION: [facility] DATE: 02/28/2024 INDICATION: Change in mental status, confusion COMPARISON: None. CONTRAST: 67 mL [id number] TECHNIQUE: Head and neck CT angiogram with IV contrast. Axial helical CTimages of the head and neck vessels obtained during the arterial phase ofintravenous contrast administration. Axial 2D reconstructed images andmultiplanar 3D MIP reconstructed images of the head and neck vessels were performed by the technologist.Dose reduction techniques were used. All stenosis measurements madeaccording to NASCET criteria unless otherwise specified. FINDINGS: HEAD CTA: ANTERIOR CIRCULATION: No stenosis/occlusion, aneurysm, or high flowvascular malformation. origin posterior cerebral arteriesbilaterally. POSTERIOR CIRCULATION: Short segment moderate to marked narrowing distalleft P2. Balanced vertebral arteries supply a normal basilar artery. DURAL VENOUS SINUSES: Expected enhancement of the major dural venoussinuses. NECK CTA: RIGHT CAROTID: Less than 50% narrowing. LEFT CAROTID: Less than 50% narrowing. VERTEBRAL ARTERIES: No focal stenosis or dissection. Balanced vertebralarteries. AORTIC ARCH: Classic aortic arch anatomy with no significant stenosis atthe origin of the great vessels. NONVASCULAR STRUCTURES: Unremarkable. IMPRESSION: HEAD CTA: 1. Short segment moderate to marked narrowing distal left P2. 2. Remaining intracranial circulation appears normal NECK CTA: 1. No definite hemodynamically significant narrowing throughout majorneck vessels. Susie Irwin MD [facility] [place] ORDERABLES * Head CT w/o contrast (02/28/2024 5:47 PM CDT) Only the most recent of4 resultswithin the time period is included. Anatomical Region Laterality Modality Head, SUBRAD CT NEURO, SUBRA D CT NEURO, UMP CT NEURO, RAD CT Computed Tomography 02/28/2024 5:47 PM CDT Impressions 02/28/2024 6:20 PM CDT IMPRESSION: 1. ??No acute intracranial process. Narrative 02/28/2024 6:20 PM CDT EXAM: CT HEAD W/O CONTRAST LOCATION: [facility] DATE: 02/28/2024 INDICATION: Change in mental status confusion COMPARISON: 12/25/2023 TECHNIQUE: Routine CT Head without IV contrast. Multiplanar reformats. Dose reduction techniques were used. FINDINGS: INTRACRANIAL CONTENTS: No intracranial hemorrhage, extraaxial collection, or mass effect. ??Small chronic infarctions left cerebellum and the right basal ganglia. Moderate presumed chronic small vessel ischemic changes. Moderate generalized volume loss. No hydrocephalus. VISUALIZED ORBITS/SINUSES/MASTOIDS: No intraorbital abnormality. No paranasal sinus mucosal disease. No middle ear or mastoid effusion. BONES/SOFT TISSUES: No acute abnormality. Procedure Note Angel Molina MD - 02/28/2024 EXAM: CT HEAD W/O CONTRAST LOCATION: [facility] DATE: 02/28/2024 INDICATION: Change in mental status confusion COMPARISON: 12/25/2023 TECHNIQUE: Routine CT Head without IV contrast. Multiplanar reformats.Dose reduction techniques were used. FINDINGS: INTRACRANIAL CONTENTS: No intracranial hemorrhage, extraaxial collection,or mass effect. Small chronic infarctions left cerebellum and the rightbasal ganglia. Moderate presumed chronic small vessel ischemic changes.Moderate generalized volume loss. No hydrocephalus. VISUALIZED ORBITS/SINUSES/MASTOIDS: No intraorbital abnormality. Noparanasal sinus mucosal disease. No middle ear or mastoid effusion. BONES/SOFT TISSUES: No acute abnormality. IMPRESSION: 1. No acute intracranial process. Susie Irwin MD IMG CT ORDERABLES * (ABNORMAL) Ammonia (on ice) (02/28/2024 4:33 PM CDT) Only the most recent of2 resultswithin the time period is included. Ammonia <10(L) 16 - 60 umol/L 02/28/2024 5:04 PM CDT LABORATORY Blood BLOOD SPECIMEN / Unknown Venipuncture / Unknown 02/28/2024 4:33 PM CDT 02/28/2024 4:40 PM CDT Susie Irwin MD LAB - BLOOD ORDERABL ES [facility] [address] 1[address], [address] [place] [address], [facility] [phone] * Extra Red Top Tube (02/28/2024 1:00 PM CDT) Only the most recent of2 resultswithin the time period is included. Hold Specimen JIC 02/28/2024 2:16 PM CDT LABORATORY Blood BLOOD SPECIMEN / Unknown Venipuncture / Unknown 02/28/2024 1:00 PM CDT 02/28/2024 1:11 PM CDT Khadar Jones MD LAB - BLOOD ORDERA BLES LABORATORY [facility] [address] 1[address], [address] [place] [address], [facility] [phone] * Extra Blue Top Tube (02/28/2024 1:00 PM CDT) Only the most recent of2 resultswithin the time period is included. Hold Specimen JIC 02/28/2024 2:16 PM CDT LABORATORY Blood BLOOD SPECIMEN / Unknown Venipuncture / Unknown 02/28/2024 1:00 PM CDT 02/28/2024 1:11 PM CDT Khadar Jones MD LAB - BLOOD ORDERA BLES LABORATORY [facility] [address] 1[address], [address] [place] [address], [facility] [phone] * (ABNORMAL) Troponin T, High Sensitivity (02/28/2024 1:00 PM CDT) Only the most recent of4 resultswithin the time period is included. Troponin T, High Sensitivity 23(H) <=22 ng/L 02/28/2024 1:39 PM CDT LABORATORY Comment: Either a High Sensitivity Troponin T baseline (0 hours) value = 100 ng/L, or an increase in High Sensitivity Troponin T = 7 ng/L at 2 hours compared to 0 hours (2-0 hours), suggests myocardial injury, and urgent clinical attention is required. ?? If the 2-0 hours increase is <7 ng/L, a High Sensitivity Troponin T result above gender-specific reference ranges warrants further evaluation. Recommendations for further evaluation include correlation with clinical decision-making tool (e.g., HEART), a 3rd High Sensitivity Troponin T test 2 hours after the 2nd (a 20% change from baseline would represent concern), admission for observation, close PCC/cardiology follow-up, or urgent outpatient provocative testing. Blood BLOOD SPECIMEN / Unknown Venipuncture / Unknown 02/28/2024 1:00 PM CDT 02/28/2024 1:11 PM CDT Khadar Jones MD LAB - BLOOD ORDERA BLES LABORATORY [facility] [address], [address] [place] [address], [place] [phone] * (ABNORMAL) Comprehensive metabolic panel (02/28/2024 1:00 PM CDT) [facility] Sodium 139 135 - 145 mmol/L 02/28/2024 1:39 PM CDT LABORATORY Comment:Reference intervals for this test were updated on 07/15/2023 to more accurately reflect our healthy population. There may be differences in the flagging of prior results with similar values performed with this method. Interpretation of those prior results can be made in the context of the updated reference intervals. Potassium 4.0 3.4 - 5.3 mmol/L 02/28/2024 1:39 PM T LABORATORY Carbon Dioxide (CO2) 18(L) 22 - 29 mmol/L 02/28/2024 1:39 PM T LABORATORY Anion Gap 17(H) 7 - 15 mmol/L 02/28/2024 1:39 PM CDT LABORATORY Urea Nitrogen 20.9 8.0 - 23.0 mg/dL 02/28/2024 1:39 PM T LABORATORY Creatinine 1.53(H) 0.67 - 1.17 mg/dL 02/28/2024 1:39 PM T LABORATORY GFR Estimate 50(L) >60 mL/min/1. 73m2 02/28/2024 1:39 PM T LABORATORY Calcium 8.8 8.8 - 10.2 mg/dL 02/28/2024 1:39 PM T LABORATORY Chloride 104 98 - 107 mmol/L 02/28/2024 1:39 PM CDT LABORATORY Glucose 123(H) 70 - 99 mg/dL 02/28/2024 1:39 PM T LABORATORY Alkaline Phosphatase 135 40 - 150 U/L 02/28/2024 1:39 PM T LABORATORY Comment:Reference intervals for this test were updated on 09/02/2023 to more accurately reflect our healthy population. There may be differences in the flagging of prior results with similar values performed with this method. Interpretation of those prior results can be made in the context of the updated reference intervals. AST 21 0 - 45 U/L 02/28/2024 1:39 PM CDT LABORATORY Comment:Reference intervals for this test were updated on 03/31/2023 to more accurately reflect our healthy population. There may be differences in the flagging of prior results with similar values performed with this method. Interpretation of those prior results can be made in the context of the updated reference intervals. ALT 77(H) 0 - 70 U/L 02/28/2024 1:39 PM CDT LABORATORY Comment:Reference intervals for this test were updated on 03/31/2023 to more accurately reflect our healthy population. There may be differences in the flagging of prior results with similar values performed with this method. Interpretation of those prior results can be made in the context of the updated reference intervals. Protein Total 6.1(L) 6.4 - 8.3 g/dL 02/28/2024 1:39 PM CDT LABORATORY Albumin 3.8 3.5 - 5.2 g/dL 02/28/2024 1:39 PM CDT LABORATORY Bilirubin Total 0.6 <=1.2 mg/dL 02/28/2024 1:39 PM CDT LABORATORY Blood BLOOD SPECIMEN / Unknown Venipuncture / Unknown 02/28/2024 1:00 PM CDT 02/28/2024 1:11 PM CDT Khadar Jones MD LAB - BLOOD ORDERA BLES LABORATORY [facility] [address] 1[address], [address] [place] [address], [facility] [phone] * Alcohol level blood (02/28/2024 1:00 PM CDT) Only the most recent of3 resultswithin the time period is included. Alcohol ethyl <0.01 <=0.01 g/dL 02/28/2024 1:39 PM CDT LABORATORY Blood BLOOD SPECIMEN / Unknown Venipuncture / Unknown 02/28/2024 1:00 PM CDT 02/28/2024 1:11 PM CDT Khadar Jones MD LAB - BLOOD ORDERA BLES LABORATORY [facility] [address] 1[address], [address] [place] [address], [facility] [phone] * (ABNORMAL) HEMOGRAM PLATELET DIFF ([facility]) (12/31/2023) WBC 7.5 4.0 - 11 10*9/L [facility] INTERNAL RBC Count 4.38(A) 4.4 - 5.9 10*12/L [facility] INTERNAL Hemoglobin 13.8 13.3 - 17.7 g/dL [facility] INTERNAL Hematocrit 41.7 40.0 - 53.0 % [facility] INTERNAL MCV 95.3 78 - 100 fL [facility]NAL MCH 31.5 26 - 33 pg [facility] INTERNAL MCHC 33.1 31 - 36 g/dL [facility]NAL Platelet Count 244 150 - 375 10^9/L [facility] INTERNAL % Granulocytes 65.7 % [facility] INTERNAL % Lymphocytes 26.4 % [facility] INTERNAL % Monocytes 7.9 % [facility] INTERNAL Blood 12/31/2023 Nathalie Tate MD LAB - NON-BEAKER BLO OD LABS [facility] INTERNAL * (ABNORMAL) Comprehensive Metobolic Panel (BFP) (12/31/2023) Carbon Dioxide 28.3 20 - 32 mmol/L [facility] INTERNAL Creatinine 1.33(A) 0.60 - 1.30 mg/dL [facility] INTERNAL Glucose 104(A) 60 - 99 mg/dL [facility]NAL Sodium 141.3 135 - 146 mmol/L [facility] INTERNAL Potassium 4.14 3.5 - 5.3 mmol/L [facility]NAL Chloride 106.0 98 - 110 mmol/L [facility] INTERNAL Protein Total 6.6 6.1 - 8.1 g/dL [facility]NAL Albumin 4.1 3.6 - 5.1 g/dL [facility] Alkaline Phosphatase 107 33 - 130 U/L [facility] INTER[facility] ALT 58(A) 0 - 32 U/L [facility] AST 30 0 - 35 U/L [facility] INTERNAL Bilirubin Total 0.6 0.2 - 1.2 mg/dL [facility] INTERNAL Urea Nitrogen 21 7 - 25 mg/dL [facility]NAL Calcium 9.7 8.6 - 10.3 mg/dL [facility] BUN/Creatinine Ratio 15.8 6 - 32 [facility]NAL Globulin Calculated 2.5 1.9 - 3.7 [facility]NAL A/G Ratio 1.6 1 - 2.5 [facility] INTERNAL GFR Estimate 59(A) >60 ml/min/1.7 3m2 [facility] INTERNAL Blood 12/31/2023 Nathalie Tate MD LAB - NON-KALEE BLO OD LABS [facility] INTERNAL * Glucose by meter (12/28/2023 8:20 AM CDT) Only the most recent of13 resultswithin the time period is included. [facility] GLUCOSE BY METER POCT 99 70 - 99 mg/dL 12/28/2023 8:27 AM CDT LABORATORY POC Blood, Capillary BLOOD SPECIMEN / Unknown 12/28/2023 8:20 AM CDT 12/28/2023 8:27 AM CDT Brooke Carlton MD LAB - KALEE P OCT LABORATORY POC [facility] [address] 1[address], [address] [place] [address], [place] [phone] * EEG Awake or Drowsy Routine (12/25/2023 11:21 AM PIN INSERTER) Narrative [facility] - 12/25/2023 3:35 PM PIN INSERTER EEG Awake or Drowsy Routine Result EEG DATE: 12/25/23 EEG LOG: [id number] PORTABLE EEG DAY#: 0 EEG SOURCE FILE DURATION: 30 MIN PATIENT INFORMATION: Jed Alamo is a 68 year old year old male who presents with AMS. EEG is being done to evaluate for seizures. TECHNICAL SUMMARY: This routine EEG was recorded from 22 scalp electrodes placed according to the 10-20 international system. Additional electrodes were used for referencing, EKG, and to record from other cerebral regions as appropriate. BACKGROUND ACTIVITIES: During this EEG recording, there is mild to moderate generalized slowing of the background activities throughout the recording with theta and delta activities. Poorly defined 7-8 hz posterior dominant rhythm was observed. No sleep stages were recorded. Hyperventilation and photic stimulation were not performed. INTERICTAL ACTIVITIES: No epileptiform activities were observed during this recording. ICTAL ACTIVITIES: There are no clinical or electrographic seizures during this recording. Impression: ??This is an abnormal EEG due to the presence of mild to moderate generalized slowing of the background activities. Findings are consistent with mild to moderate diffuse encephalopathy of which the etiology is non-specific. ??No epileptiform activities or seizures were observed. Kaushal Dixon MD EPILEPSY STAFF Kaylee Ortega MD IMG EEG ORDERABLES [facility] * ECHO COMPLETE (12/25/2023 8:16 AM PIN INSERTER) LVEF 60-65% CARDIOLOGY RESULTS Anatomical Region Laterality Modality Echocardiography 12/25/2023 7:46 AM PIN INSERTER Narrative 12/25/2023 11:37 AM PIN INSERTER [id number]^BIANKA^BROOKE^CANDICE [facility] Echocardiography Laboratory [address] [place] [address] Name: JED ALAMO : 1955 Study Date: 12/25/2023 07:46 AM Age: 68 yrs Gender: Male Patient Location: [facility] Reason For Study: Cerebrovascular Incident Ordering Physician: BROOKE CARLTON Referring Physician: Nathalie Tate Performed By: Nan Hernandez BSA: 1.8 m2 Height: 70 in Weight: 148 lb HR: 59 BP: 142/68 mmHg Procedure Complete Portable Echo Adult. Interpretation Summary Left ventricular systolic function is normal. The visual ejection fraction is 60-65%. The right ventricle is normal in structure, function and size. No significant valve dysfunction. The inferior vena cava was normal in size with preserved respiratory variability. There is no pericardial effusion. No change from prior study dated 01/20/2022. Left Ventricle The left ventricle is normal in size. There is normal left ventricular wall thickness. Left ventricular systolic function is normal. The visual ejection fraction is 60-65%. Grade I or early diastolic dysfunction. Normal left ventricular wall motion. Right Ventricle The right ventricle is normal in structure, function and size. Atria Normal left atrial size. Right atrial size is normal. Mitral Valve There is mild mitral annular calcification. There is mild (1+) mitral regurgitation. Tricuspid Valve The tricuspid valve is normal in structure and function. Right ventricular systolic pressure could not be approximated due to inadequate tricuspid regurgitation. Aortic Valve The aortic valve is trileaflet with aortic valve sclerosis. Pulmonic Valve Normal pulmonic valve. There is mild (1+) pulmonic valvular regurgitation. Vessels The aortic root is normal size. Normal size ascending aorta. The inferior vena cava was normal in size with preserved respiratory variability. Pericardium There is no pericardial effusion. MMode/2D Measurements & Calculations IVSd: 0.87 cm LVIDd: 4.4 cm LVIDs: 2.9 cm LVPWd: 1.1 cm FS: 32.9 % LV mass(C)d: 138.7 grams LV mass(C)dI: 75.5 grams/m2 Ao root diam: 3.5 cm LA dimension: 3.5 cm asc Aorta Diam: 3.4 cm LA/Ao: 1.0 LVOT diam: 2.0 cm LVOT area: 3.1 cm2 Ao root diam index Ht(cm/m): 2.0 Ao root diam index BSA (cm/m2): 1.9 Asc Ao diam index BSA (cm/m2): 1.9 Asc Ao diam index Ht(cm/m): 1.9 LA Volume (BP): 34.3 ml LA Volume Index (BP): 18.6 ml/m2 RV Base: 3.3 cm RWT: 0.48 TAPSE: 2.2 cm Doppler Measurements & Calculations MV E max abe: 71.8 cm/sec MV A max abe: 99.6 cm/sec MV E/A: 0.72 MV dec time: 0.19 sec Ao V2 max: 108.0 cm/sec Ao max P.0 mmHg Ao V2 mean: 75.1 cm/sec Ao mean P.0 mmHg Ao V2 VTI: 24.5 cm LARISA(I,D): 2.6 cm2 LARISA(V,D): 2.6 cm2 LV V1 max P.2 mmHg LV V1 max: 90.1 cm/sec LV V1 VTI: 20.0 cm SV(LVOT): 62.8 ml SI(LVOT): 34.2 ml/m2 PA acc time: 0.17 sec AV Abe Ratio (DI): 0.83 LARISA Index (cm2/m2): 1.4 E/E' av.7 Lateral E/e': 8.5 Medial E/e': 11.0 RV S Abe: 11.7 cm/sec Report approved by: Radha Arroyo 12/25/2023 11:37 AM Procedure Note Ofelia Trejo MD - 12/25/2023 [id number]^BIANKA^BROOKE^CANDIEC [facility] Echocardiography Laboratory [address] [place], [place] [address] Name: JED ALAMO : 1955 Study Date: 12/25/2023 07:46 AM Age: 68 yrs Gender: Male Patient Location: [facility] Reason For Study: Cerebrovascular Incident Ordering Physician: BROOKE CARLTON Referring Physician: Nathalie Tate Performed By: Nan Hernandez BSA: 1.8 m2 Height: 70 in Weight: 148 lb HR: 59 BP: 142/68 mmHg Procedure Complete Portable Echo Adult. Interpretation Summary Left ventricular systolic function is normal. The visual ejection fraction is 60-65%. The right ventricle is normal in structure, function and size. No significant valve dysfunction. The inferior vena cava was normal in size with preserved respiratory variability. There is no pericardial effusion. No change from prior study dated 01/20/2022. Left Ventricle The left ventricle is normal in size. There is normal left ventricularwall thickness. Left ventricular systolic function is normal. The visualejection fraction is 60-65%. Grade I or early diastolic dysfunction. Normal left ventricular wall motion. Right Ventricle The right ventricle is normal in structure, function and size. Atria Normal left atrial size. Right atrial size is normal. Mitral Valve There is mild mitral annular calcification. There is mild (1+) mitral regurgitation. Tricuspid Valve The tricuspid valve is normal in structure and function. Rightventricular systolic pressure could not be approximated due to inadequate tricuspid regurgitation. Aortic Valve The aortic valve is trileaflet with aortic valve sclerosis. Pulmonic Valve Normal pulmonic valve. There is mild (1+) pulmonic valvularregurgitation. Vessels The aortic root is normal size. Normal size ascending aorta. The inferiorvena cava was normal in size with preserved respiratory variability. Pericardium There is no pericardial effusion. MMode/2D Measurements & Calculations IVSd: 0.87 cm LVIDd: 4.4 cm LVIDs: 2.9 cm LVPWd: 1.1 cm FS: 32.9 % LV mass(C)d: 138.7 grams LV mass(C)dI: 75.5 grams/m2 Ao root diam: 3.5 cm LA dimension: 3.5 cm asc Aorta Diam: 3.4 cm LA/Ao: 1.0 LVOT diam: 2.0 cm LVOT area: 3.1 cm2 Ao root diam index Ht(cm/m): 2.0 Ao root diam index BSA (cm/m2): 1.9 Asc Ao diam index BSA (cm/m2): 1.9 Asc Ao diam index Ht(cm/m): 1.9 LA Volume (BP): 34.3 ml LA Volume Index (BP): 18.6 ml/m2 RV Base: 3.3 cm RWT: 0.48 TAPSE: 2.2 cm Doppler Measurements & Calculations MV E max abe: 71.8 cm/sec MV A max abe: 99.6 cm/sec MV E/A: 0.72 MV dec time: 0.19 sec Ao V2 max: 108.0 cm/sec Ao max P.0 mmHg Ao V2 mean: 75.1 cm/sec Ao mean P.0 mmHg Ao V2 VTI: 24.5 cm LARISA(I,D): 2.6 cm2 LARISA(V,D): 2.6 cm2 LV V1 max P.2 mmHg LV V1 max: 90.1 cm/sec LV V1 VTI: 20.0 cm SV(LVOT): 62.8 ml SI(LVOT): 34.2 ml/m2 PA acc time: 0.17 sec AV Abe Ratio (DI): 0.83 LARISA Index (cm2/m2): 1.4 E/E' av.7 Lateral E/e': 8.5 Medial E/e': 11.0 RV S Abe: 11.7 cm/sec Report approved by: Radha Arroyo 12/25/2023 11:37 AM Brooke Carlton MD CV ECHO ORDERA BLES * EKG 12-lead, Tracing only (12/25/2023 6:38 AM PIN INSERTER) Only the most recent of4 resultswithin the time period is included. Systolic Blood Pressure mmHg RADIOLOGY RESULTS Diastolic Blood Pressure mmHg RADIOLOGY RESULTS Ventricular Rate 67 BPM RAD IOLOGY RESULTS Atrial Rate 67 BPM RADIOLOG Y RESULTS IA Interval 160 ms RADIOLOG Y RESULTS QRS Duration 90 ms RADIOLO GY RESULTS QT 414 ms RADIOLOGY RESULTS QTc 437 ms RADIOLOGY RESULTS P [place] 67 degrees RADIOLOGY RESULTS R AXIS 76 degrees RADIOLOGY RESULTS T [place] 71 degrees RADIOLOGY RESULTS Interpretation ECG Sinus rhythm Normal ECG When compared with ECG of 24-DEC-2023 18:55, No significant change was found Confirmed by MD CAROLINA, YE ([id number]), pictures editor Brice Tovar ([id number]) on 12/26/2023 9:11:17 AM RADIOLOGY RESULTS 12/25/2023 6:38 AM PIN INSERTER 12/26/2023 9:11 AM PIN INSERTER Brooke Carlton MD ECG ORDERABLES RADIOLOGY RESULTS * INR (12/25/2023 5:21 AM PIN INSERTER) Only the most recent of2 resultswithin the time period is included. INR 1.00 0.85 - 1.15 12/25/2023 5:53 AM PIN INSERTER LABORATORY Blood STRUCTURE OF RIGHT UPPER LIMB / Unknown Venipuncture / Unknown 12/25/2023 5:21 AM PIN INSERTER 12/25/2023 5:38 AM PIN INSERTER Brooke Carlton MD LAB - BLOOD OR DERABLES LABORATORY [facility] Acute Care Lab [address] 1[address] floor, [address] [place] [address], [facility] [phone] * Partial thromboplastin time (12/25/2023 5:21 AM PIN INSERTER) Only the most recent of2 resultswithin the time period is included. aPTT 27 22 - 38 Seconds 12/25/2023 5:53 AM PIN INSERTER LABORATORY Blood STRUCTURE OF RIGHT UPPER LIMB / Unknown Venipuncture / Unknown 12/25/2023 5:21 AM PIN INSERTER 12/25/2023 5:38 AM PIN INSERTER Brooke Carlton MD LAB - BLOOD OR DERABLES [facility] Lab [address], [address] [place] [address], [facility] [phone] * MR Brain w/o Contrast (12/25/2023 4:14 AM PIN INSERTER) Anatomical Region Laterality Modality Head, SUBRAD MR NEURO, UMP MR NEURO, RAD MR Magnetic Resonance 12/25/2023 4:14 AM PIN INSERTER Impressions 12/25/2023 4:22 AM PIN INSERTER IMPRESSION: 1. ??No acute intracranial process. 2. ??Stable chronic changes as detailed above. Narrative 12/25/2023 4:22 AM PIN INSERTER EXAM: MR BRAIN W/O CONTRAST LOCATION: [facility] DATE: 12/25/2023 INDICATION: Acute ischemic stroke COMPARISON: 12/24/2023, 12/09/2023 TECHNIQUE: Routine multiplanar multisequence head MRI without intravenous contrast. FINDINGS: Mildly motion degraded exam. INTRACRANIAL CONTENTS: No acute or subacute infarct. Chronic infarcts in the left cerebellum, marin, right basal ganglia and thalamus. No mass, acute hemorrhage, or extra-axial fluid collections. Patchy and confluent nonspecific T2/FLAIR hyperintensities within the cerebral white matter most consistent with moderate chronic microvascular ischemic change. Moderate generalized cerebral atrophy. No hydrocephalus. Normal position of the cerebellar tonsils. SELLA: No abnormality accounting for technique. OSSEOUS STRUCTURES/SOFT TISSUES: Normal marrow signal. The major intracranial vascular flow voids are maintained. ORBITS: No abnormality accounting for technique. SINUSES/MASTOIDS: Mild to moderate mucosal thickening scattered about the paranasal sinuses. Scattered fluid/membrane thickening in the mastoid air cells bilaterally. Procedure Note Jeny Moody MD - 12/25/2023 EXAM: MR BRAIN W/O CONTRAST LOCATION: [facility] DATE: 12/25/2023 INDICATION: Acute ischemic stroke COMPARISON: 12/24/2023, 12/09/2023 TECHNIQUE: Routine multiplanar multisequence head MRI without intravenouscontrast. FINDINGS: Mildly motion degraded exam. INTRACRANIAL CONTENTS: No acute or subacute infarct. Chronic infarcts inthe left cerebellum, marin, right basal ganglia and thalamus. No mass,acute hemorrhage, or extra-axial fluid collections. Patchy and confluentnonspecific T2/FLAIR hyperintensities within the cerebral white matter most consistent with moderate chronicmicrovascular ischemic change. Moderate generalized cerebral atrophy. Nohydrocephalus. Normal position of the cerebellar tonsils. SELLA: No abnormality accounting for technique. OSSEOUS STRUCTURES/SOFT TISSUES: Normal marrow signal. The majorintracranial vascular flow voids are maintained. ORBITS: No abnormality accounting for technique. SINUSES/MASTOIDS: Mild to moderate mucosal thickening scattered about theparanasal sinuses. Scattered fluid/membrane thickening in the mastoid aircells bilaterally. IMPRESSION: 1. No acute intracranial process. 2. Stable chronic changes as detailed above. Brooke Carlton MD IMG MRI ORDERA BLES * Lipid panel reflex to direct LDL (12/24/2023 11:28 PM PIN INSERTER) Cholesterol 166 <200 mg/dL 12/25/2023 3:05 AM PIN INSERTER [facility] Triglycerides 138 <150 mg/dL 12/25/2023 3:05 AM PIN INSERTER [facility] Direct Measure HDL 49 >=40 mg/dL 2023 3:05 AM PIN INSERTER [facility] LDL Cholesterol Calculated 89 <=100 mg/dL 12/25/2023 3:05 AM PIN INSERTER [facility] Non HDL Cholesterol 117 <130 mg/dL 12/25/2023 3:05 AM PIN INSERTER [facility] Blood STRUCTURE OF RIGHT UPPER LIMB / Unknown Venipuncture / Unknown 12/24/2023 11:28 PM PIN INSERTER 12/24/2023 11:44 PM PIN INSERTER Narrative [facility] - 12/25/2023 3:05 AM PIN INSERTER Cholesterol Desirable: ??<200 mg/dL Triglycerides Normal: ??Less than 150 mg/dL Borderline High: ??150-199 mg/dL High: ??200-499 mg/dL Very High: ??Greater than or equal to 500 mg/dL Direct Measure HDL Female: ??Greater than or equal to 50 mg/dL Male: ??Greater than or equal to 40 mg/dL LDL Cholesterol Desirable: ??<100mg/dL Above Desirable: ??100-129 mg/dL Borderline High: ??130-159 mg/dL High: ??160-189 mg/dL Very High: ??>= 190 mg/dL Non HDL Cholesterol Desirable: ??130 mg/dL Above Desirable: ??130-159 mg/dL Borderline High: ??160-189 mg/dL High: ??190-219 mg/dL Very High: ??Greater than or equal to 220 mg/dL Brooke Carlton MD LAB - BLOOD OR DERABLES LABORATORY [facility] [place] [facility] [address], [address] [place] [address], [place] [phone] * Hemoglobin A1c (12/24/2023 11:28 PM PIN INSERTER) Hemoglobin A1C 5.2 <5.7 % 12/24/2023 11:59 PM PIN INSERTER LABORATORY Comment: Normal <5.7% Prediabetes 5.7-6.4% ?? Diabetes 6.5% or higher Note: Adopted from ADA consensus guidelines. Blood STRUCTURE OF RIGHT UPPER LIMB / Unknown Venipuncture / Unknown 12/24/2023 11:28 PM PIN INSERTER 12/24/2023 11:44 PM PIN INSERTER Brooke Carlton MD LAB - BLOOD OR DERABLES LABORATORY [facility] Acute Care Lab [address] 1[address], [address] [place] [address], [place] [phone] * Hepatic function panel (12/24/2023 5:42 PM PIN INSERTER) Only the most recent of2 resultswithin the time period is included. Protein Total 7.0 6.4 - 8.3 g/dL 12/24/2023 6:31 PM PIN INSERTER LABORATORY Albumin 4.4 3.5 - 5.2 g/dL 12/24/2023 6:31 PM PIN INSERTER [facility] Bilirubin Total 0.3 <=1.2 mg/dL 12/24/2023 6:31 PM PIN INSERTER [facility] Alkaline Phosphatase 131 40 - 150 U/L 12/24/2023 6:31 PM PIN INSERTER [facility] Comment:Reference intervals for this test were updated on 09/02/2023 to more accurately reflect our healthy population. There may be differences in the flagging of prior results with similar values performed with this method. Interpretation of those prior results can be made in the context of the updated reference intervals. AST 24 0 - 45 U/L 12/24/2023 6:31 PM PIN INSERTER [facility] Comment:Reference intervals for this test were updated on 03/31/2023 to more accurately reflect our healthy population. There may be differences in the flagging of prior results with similar values performed with this method. Interpretation of those prior results can be made in the context of the updated reference intervals. ALT 55 0 - 70 U/L 12/24/2023 6:31 PM PIN INSERTER [facility] Comment:Reference intervals for this test were updated on 03/31/2023 to more accurately reflect our healthy population. There may be differences in the flagging of prior results with similar values performed with this method. Interpretation of those prior results can be made in the context of the updated reference intervals. Bilirubin Direct <0.20 0.00 - 0.30 mg/dL 12/24/2023 6:31 PM PIN INSERTER [facility] Blood BLOOD SPECIMEN / Unknown Venipuncture / Unknown 12/24/2023 5:42 PM PIN INSERTER 12/24/2023 5:45 PM PIN INSERTER Cali Cedillo MD LAB - BLOOD ORDERABL ES RH LABORATORY [facility] Acute Care Lab [address] [facility] Lab (1st floor, no room number) [place] [address], [facility] [phone] * Potassium (12/11/2023 5:00 AM PIN INSERTER) [facility] Potassium 3.8 3.4 - 5.3 mmol/L 12/11/2023 5:37 AM PIN INSERTER [facility] Blood STRUCTURE OF LEFT HAND / Unknown Venipuncture / Unknown 12/11/2023 5:00 AM PIN INSERTER 12/11/2023 5:17 AM PIN INSERTER Mariposa Cooper MD LAB - BLOOD ORDER SANTO [facility] Acute Care Lab [address] Lab (1st floor, no room number) [place] [address], [facility] [phone] * Phosphorus (12/11/2023 5:00 AM PIN INSERTER) Only the most recent of2 resultswithin the time period is included. Phosphorus 3.7 2.5 - 4.5 mg/dL 12/11/2023 5:37 AM PIN INSERTER [facility] Blood STRUCTURE OF LEFT HAND / Unknown Venipuncture / Unknown 12/11/2023 5:00 AM PIN INSERTER 12/11/2023 5:17 AM PIN INSERTER Mariposa Cooper MD LAB - BLOOD ORDER SANTO Performing Organization Address City/[facility]/ZIP Co de Phone Number [facility] Lab [address] Lab (1st floor, no room number) [place] [address], [facility] [phone] * Magnesium (12/11/2023 5:00 AM PIN INSERTER) Only the most recent of4 resultswithin the time period is included. Magnesium 2.0 1.7 - 2.3 mg/dL 12/11/2023 5:37 AM PIN INSERTER [facility] Blood STRUCTURE OF LEFT HAND / Unknown Venipuncture / Unknown 12/11/2023 5:00 AM PIN INSERTER 12/11/2023 5:17 AM PIN INSERTER Sari Vasquez PA-C LAB - BLOOD ORDERA BLES [facility] Care Lab [address] Lab (1st floor, no room number) [place] [address], [facility] [phone] * Symptomatic Influenza A/B, RSV, & SARS-CoV2 PCR (COVID-19) Nasopharyngeal (12/09/2023 8:18 PM PIN INSERTER) Influenza A PCR Negative Negative 12/09/2023 9:14 PM PIN INSERTER [facility] Influenza B PCR Negative Negative 12/09/2023 9:14 PM PIN INSERTER [facility] RSV PCR Negative Negative 12/09/2023 9:14 PM PIN INSERTER [facility] SARS CoV2 PCR Negative Negative 12/09/2023 9:14 PM PIN INSERTER [facility] Comment:NEGATIVE: SARS-CoV-2 (COVID-19) RNA not detected, presumed negative. Swab NASOPHARYNGEAL STRUCTURE / Unknown Non-blood Collection / Unknown 12/09/2023 8:18 PM PIN INSERTER 12/09/2023 8:[address] [facility] - 12/09/2023 9:14 PM PIN INSERTER Testing was performed using the Xpert Xpress CoV2/Flu/RSV Assay on the Return Path GeneXpert Instrument. This test should be ordered for the detection of SARS-CoV-2, influenza, and RSV viruses in individuals who meet clinical and/or epidemiological criteria. Test performance is unknown in asymptomatic patients. This test is for in vitro diagnostic use under the FDA EUA for laboratories certified under CLIA to perform high or moderate complexity testing. This test has not been FDA cleared or approved. A negative result does not rule out the presence of PCR inhibitors in the specimen or target RNA in concentration below the limit of detection for the assay. If only one viral target is positive but coinfection with multiple targets is suspected, the sample should be re-tested with another FDA cleared, approved, or authorized test, if coinfection would change clinical management. This test was validated by the [facility]. These laboratories are certified under the Clinical Laboratory Improvement Amendments of 1988 (CLIA-88) as qualified to perform high complexity laboratory testing. Mariposa Cooper MD LAB - MICRO GENER AL ORDERABLES LABORATORY [facility] Acute Care Lab [address] [facility] (1st [facility], no room number) [place] [address] [phone] * Chest XR, PA & LAT (12/09/2023 3:44 PM PIN INSERTER) Anatomical Region Laterality Modality Chest Digital Radiogra phy Impressions 12/09/2023 3:52 PM PIN INSERTER IMPRESSION: Cardiopericardial silhouette is within normal limits. Aortic arch calcification. No focal airspace consolidation. No pleural effusion. No discernible pneumothorax. No acute displaced fracture. Nodular opacity projecting at the right upper lung measuring up to 7 mm which may represent pulmonary vascular shadows or a pulmonary nodule. Recommend nonemergent follow-up with chest CT. LUIS FELIPE HORTON MD SYSTEM ID: ??[id number] Narrative 12/09/2023 3:52 PM PIN INSERTER CHEST TWO VIEWS 12/09/2023 3:44 PM HISTORY: syncope, weakness COMPARISON: 01/19/2022. Procedure Note Luis Felipe Horton MD - 12/09/2023 CHEST TWO VIEWS 12/09/2023 3:44 PM HISTORY: syncope, weakness COMPARISON: 01/19/2022. IMPRESSION: Cardiopericardial silhouette is within normal limits. Aortic arch calcification. No focal airspace consolidation. No pleural effusion. No discernible pneumothorax. No acute displaced fracture. Nodular opacity projecting at the right upper lung measuring up to 7 mm which may represent pulmonary vascular shadows or a pulmonary nodule. Recommend nonemergent follow-up with chest CT. LUIS FELIPE HORTON MD SYSTEM ID: [id number] Akash Ramirez MD IMG DIAGNOSTIC PASCUAL GING ORDERABLES * CT Abdomen Pelvis w/o Contrast (12/09/2023 2:54 PM PIN INSERTER) Anatomical Region Laterality Modality Abdomen/Pelvis, SUBRAD CT CAROLANN DY, UMP CT ABDOMEN PELVIS, RAD CT Computed Tomography Impressions 12/09/2023 3:05 PM PIN INSERTER IMPRESSION: 1. ??There is a 5 mm calculus within the right proximal ureter at the ureteropelvic junction. No significant hydronephrosis. 2. ??Multiple additional nonobstructing bilateral renal calculi. 3. ??Nonspecific bilateral perinephric stranding does not appear significantly changed. Mild nonspecific bladder wall thickening. These findings can be correlated with urinalysis. LUIS FELIPE HORTON MD SYSTEM ID: ??[id number] Narrative 12/09/2023 3:[address] ABDOMEN PELVIS W/O CONTRAST 12/09/2023 2:54 PM CLINICAL HISTORY: Hematuria. TECHNIQUE: CT scan of the abdomen and pelvis was performed without IV contrast. Multiplanar reformats were obtained. Dose reduction techniques were used. CONTRAST: None. COMPARISON: CT abdomen and pelvis 08/16/2019. FINDINGS: LOWER CHEST: Stable left lower lobe pulmonary nodule measuring 4 mm given differences in technique (series 3, image 10). No air space consolidation of the lung bases. Mild circumferential wall thickening of the esophagus is nonspecific but can be seen with esophagitis/reflux. Small hiatal hernia. HEPATOBILIARY: No significant mass or bile duct dilatation. No calcified gallstones. PANCREAS: No significant mass, duct dilatation, or inflammatory change. SPLEEN: Normal size. ADRENAL GLANDS: No significant nodules. KIDNEYS/BLADDER: Multiple bilateral punctate 2 to 3 mm renal calculi. There is a 5 mm calculus within the right proximal ureter at the UPJ. No hydronephrosis. Nonspecific bilateral perinephric stranding. This is similar and can be correlated with urinalysis. Mild circumferential bladder wall thickening. BOWEL: Scattered colonic diverticula without focal inflammatory change. No evidence of bowel obstruction. Normal appendix. VASCULATURE: Aortobiiliac calcifications without abdominal aortic aneurysm. PELVIC ORGANS: Borderline prostatomegaly. OTHER: No ascites. No adenopathy in the abdomen or pelvis. MUSCULOSKELETAL: No acute osseous findings. Mild degenerative changes of the spine. Remote superior endplate fracture of T12. Procedure Note Luis Felipe Horton MD - 12/09/2023 CT ABDOMEN PELVIS W/O CONTRAST 12/09/2023 2:54 PM CLINICAL HISTORY: Hematuria. TECHNIQUE: CT scan of the abdomen and pelvis was performed without IV contrast. Multiplanar reformats were obtained. Dose reduction techniques were used. CONTRAST: None. COMPARISON: CT abdomen and pelvis 08/16/2019. FINDINGS: LOWER CHEST: Stable left lower lobe pulmonary nodule measuring 4 mm given differences in technique (series 3, image 10). No air space consolidation of the lung bases. Mild circumferential wall thickening of the esophagus is nonspecific but can be seen with esophagitis/reflux. Small hiatal hernia. HEPATOBILIARY: No significant mass or bile duct dilatation. No calcified gallstones. PANCREAS: No significant mass, duct dilatation, or inflammatory change. SPLEEN: Normal size. ADRENAL GLANDS: No significant nodules. KIDNEYS/BLADDER: Multiple bilateral punctate 2 to 3 mm renal calculi. There is a 5 mm calculus within the right proximal ureter at the UPJ. No hydronephrosis. Nonspecific bilateral perinephric stranding. This is similar and can be correlated with urinalysis. Mild circumferential bladder wall thickening. BOWEL: Scattered colonic diverticula without focal inflammatory change. No evidence of bowel obstruction. Normal appendix. VASCULATURE: Aortobiiliac calcifications without abdominal aortic aneurysm. PELVIC ORGANS: Borderline prostatomegaly. OTHER: No ascites. No adenopathy in the abdomen or pelvis. MUSCULOSKELETAL: No acute osseous findings. Mild degenerative changes of the spine. Remote superior endplate fracture of T12. IMPRESSION: 1. There is a 5 mm calculus within the right proximal ureter at the ureteropelvic junction. No significant hydronephrosis. 2. Multiple additional nonobstructing bilateral renal calculi. 3. Nonspecific bilateral perinephric stranding does not appear significantly changed. Mild nonspecific bladder wall thickening. These findings can be correlated with urinalysis. LUIS FELIPE HORTON MD SYSTEM ID: [id number] Akash Ramirez MD IMG CT ORDERABLES * Blood Culture Hand, Right (12/09/2023 1:52 PM PIN INSERTER) Only the most recent of2 resultswithin the time period is included. Culture No Growth 12/14/2023 3:32 PM PIN INSERTER [facility] Blood STRUCTURE OF RIGHT HAND / Unknown Venipuncture / Unknown 12/09/2023 1:52 PM PIN INSERTER 12/09/2023 1:56 PM PIN INSERTER Narrative [facility] - 12/14/2023 3:32 PM PIN INSERTER Only an Aerobic Blood Culture Bottle was collected, interpret results with caution. Akash Ramirez MD LAB - MICRO GENERA L ORDERABLES [facility] Lab [address] [place] [address], [facility] [phone] * Lactic acid whole blood (12/09/2023 1:15 PM PIN INSERTER) Lactic Acid 0.8 0.7 - 2.0 mmol/L 12/09/2023 1:26 PM PIN INSERTER [facility] Blood BLOOD SPECIMEN / Unknown Venipuncture / Unknown 12/09/2023 1:15 PM PIN INSERTER 12/09/2023 1:22 PM PIN INSERTER Akash Ramirez MD LAB - BLOOD ORDERA BLES [facility] Lab [address] Lab (1st floor, no room number) [place] [address], [place] [phone] * (ABNORMAL) Ketone Beta-Hydroxybutyrate Quantitative (12/09/2023 1:15 PM PIN INSERTER) Pathologist [facility] Ketone (Beta-Hydroxybuty rate) Quantitative 0.60(H) <=0.30 mmol/L 12/09/2023 1:56 PM PIN INSERTER LABORATORY Blood BLOOD SPECIMEN / Unknown Venipuncture / Unknown 12/09/2023 1:15 PM PIN INSERTER 12/09/2023 1:23 PM PIN INSERTER Akash Ramirez MD LAB - BLOOD ORDERA BLES [facility] Acute Care Lab [address] Lab (1st floor, no room number) [place] [address], [place] [phone] * D dimer quantitative (12/09/2023 1:15 PM PIN INSERTER) D-Dimer Quantitative 0.27 0.00 - 0.50 ug/mL FEU 12/09/2023 2:25 PM PIN INSERTER [facility] Blood BLOOD SPECIMEN / Unknown Venipuncture / Unknown 12/09/2023 1:15 PM PIN INSERTER 12/09/2023 1:22 PM PIN INSERTER Narrative [facility] - 12/09/2023 2:25 PM PIN INSERTER This D-dimer assay is intended for use in conjunction with a clinical pretest probability assessment model to exclude pulmonary embolism (PE) and deep venous thrombosis (DVT) in outpatients suspected of PE or DVT. The cut-off value is 0.50 ug/mL FEU. For patients 50 years of age or older, the application of age-adjusted cut-off values for D-Dimer may increase the specificity without significant effect on sensitivity. The literature suggested calculation age adjusted cut-off in ug/L = age in years x 10 ug/L. The results in this laboratory are reported as ug/mL rather than ug/L. The calculation for age adjusted cut off in ug/mL= age in years x 0.01 ug/mL. For example, the cut off for a 76 year old male is 77 x 0.01 ug/mL = 0.76 ug/mL (760 ug/L). M Debra et al. Age adjusted D-dimer cut-off levels to rule out pulmonary embolism: The ADJUST-PE Study. LAURA 2014;311:7820-4611.; HJ Alison et al. Diagnostic accuracy of conventional or age adjusted D-dimer cutoff values in older patients with suspected venous thromboembolism. Systemic review and meta-analysis. BMJ 2013:346:f2492. Akash Ramirez MD LAB - BLOOD ORDERA BLES LABORAT[facility] [address] Lab (1st floor, no room number) [place] [address], [facility] [phone] * CK total (12/09/2023 1:15 PM PIN INSERTER) CK 162 39 - 308 U/L 12/09/2023 1:56 PM PIN INSERTER [facility] Blood BLOOD SPECIMEN / Unknown Venipuncture / Unknown 12/09/2023 1:15 PM PIN INSERTER 12/09/2023 1:23 PM PIN INSERTER Akash Ramirez MD LAB - BLOOD ORDERA BLES LABORAT[facility] [address] [facility] Lab (1st floor, no room number) [place] [address], [facility] [phone] * (ABNORMAL) UA with Microscopic reflex to Culture (12/09/2023 12:55 PM PIN INSERTER) Color Urine Yellow Colorless, Straw, Light Yellow, Yellow 12/09/2023 1:32 PM PIN INSERTER LABORATORY Appearance Urine Clear Clear 12/09/19 24 1:32 PM PIN INSERTER [facility] Glucose Urine Negative Negative mg/dL 12/09/2023 1:32 PM PIN INSERTER LABORATORY Bilirubin Urine Negative Negative 4 1:32 PM PIN INSERTER LABORATORY Ketones Urine 40(A) Negative mg/dL 12/09/2023 1:32 PM PIN INSERTER LABORATORY Specific [place] Urine 1.026 1.003 - 1.035 12/09/2023 1:32 PM PIN INSERTER LABORAT[facility] Blood Urine Large(A) Negative 12/09/2023 1:32 PM PIN INSERTER LABOR[facility] pH Urine 6.0 5.0 - 7.0 12/09/2023 1:32 PM PIN INSERTER LAB[facility] Protein Albumin Urine 30(A) Negative mg/dL 12/09/2023 1:32 PM PIN INSERTER LABOR[facility] Urobilinogen Urine Normal Normal, 2.0 mg/dL 12/09/2023 1:32 PM PIN INSERTER LABORAT[facility] Nitrite Urine Negative Negative 12/09/2023 1:32 PM PIN INSERTER LABORAT[facility] Leukocyte Esterase Urine Negative Negative 12/09/2023 1:32 PM PIN INSERTER LABORAT[facility] Mucus Urine Present(A) None Seen /LPF 12/09/2023 1:32 PM PIN INSERTER LABORATORY RBC Urine >182(H) <=2 /HPF 12/09/2023 1:32 PM PIN INSERTER LABORATORY WBC Urine 6(H) <=5 /HPF 12/09/2023 1:32 PM PIN INSERTER LABORATORY Squamous Epithelials Urine <1 <=1 /HPF 12/09/2023 1:32 PM PIN INSERTER LABORATORY Hyaline Casts Urine 3(H) <=2 /LPF 12/09/2023 1:32 PM PIN INSERTER LABORATORY Urine MID-STREAM URINE SPECIMEN / Unknown Non-blood Collection / Unknown 12/09/2023 12:55 PM PIN INSERTER 12/09/2023 1:22 PM PIN INSERTER Narrative LABORATORY - 12/09/2023 1:32 PM PIN INSERTER Urine Culture not indicated Akash Ramirez MD LAB - URINE ORDERA BLES LABORATORY [facility] [address] Lab (1st floor, no room number) [place] [address], [facility] [phone] * Urine Culture (12/09/2023 12:55 PM PIN INSERTER) Culture <10,000 CFU/mL Urogenital trista 12/10/2023 11:19 AM PIN INSERTER [facility] Urine MID-STREAM URINE SPECIMEN / Unknown Non-blood Collection / Unknown 12/09/2023 12:55 PM PIN INSERTER 12/09/2023 1:22 PM PIN INSERTER Akash Ramirez MD LAB - MICRO GENERA L ORDERABLES [facility] Inf. Diseases Diag. Lab [address] [place] [address], [facility] [phone] * CT Chest Lung Cancer Scrn Low Dose wo (08/05/2023) Anatomical Region Laterality Modality Chest, SUBRAD CT BODY, UMP CT CHEST, RAD CT Computed Tomography Narrative 08/05/2023 [id number], [address] [place] [address] [place] : 1955 Req Phys: Nathalie Tate MD Patient name: JED ALAMO Clinic: [facility] Dept No: [id number] CT CHEST LUNG CANCER SCREENING Exam Date: 08/05/2023 EXAM: LOW DOSE LUNG CANCER SCREENING CT CHEST LOCATION: [facility] [place] DATE: 08/05/2023 INDICATION: Lung cancer screening. History of smoking. High risk patient. COMPARISON: CT chest, abdomen and pelvis 02/06/2017. TECHNIQUE: Low-dose lung cancer screening non-contrast CT chest. Dose reduction techniques were used. Images assessed using LungRADS 2022 criteria. FINDINGS: NODULES: Few scattered tiny calcified nodules. No suspicious nodule. Evaluation in the lung bases is somewhat limited due to motion artifact. LUNGS AND PLEURA: Mild emphysema. No focal consolidation or pleural effusion. MEDIASTINUM: No lymphadenopathy. Thoracic aorta is nonaneurysmal. Mild atherosclerosis. CORONARY ARTERY CALCIFICATION: Mild. LIMITED UPPER ABDOMEN: Nonobstructing right renal calculus. MUSCULOSKELETAL: Similar T12 compression deformity. Mild T6 superior endplate height loss. No aggressive osseous lesion. IMPRESSION: 1. Negative for lung cancer screening purposes. 2. Nonobstructing right renal calculus. LungRADS CATEGORY: 2 : Benign. -Perifissural nodule(s): <10 mm -Solid nodule(s): <6 mm on baseline screening; or new nodule <4 mm -Subsolid nodule(s): <6 mm on baseline screening -Ground glass nodule(s): <30 mm at baseline, new or slowly growing; 30 mm or larger and unchanged or slowly growing -Category 3 nodules that are unchanged for greater than or equal to 6 months -Category 4 lesions proven to be benign following appropriate workup -Airway nodule, subsegmental at baseline, new or stable RADIOLOGIST RECOMMENDATION(S): Continue annual screening with low-dose CT chest in 12 months. KO FELIZ M.D. Trans: CRISTIANK Date Of Trans: 08/05/2023 3:37:00PM Page 1 of 2 JED ALAMO : 1955 Exam: CT CHEST LUNG CANCER SCREENING Password protected electronic signature by: Date report approved and signed by interpreting physician: 08/05/2023 5:41:00PM Page 2 of 2 Nathalie Tate MD [facility] [place] ORDER[place] * ALBUMIN RANDOM URINE QUANTITATIVE (BFP) (06/20/2023) Albumin mg/L 30 <30 [facility] INTERNAL Creatinine Urine mg/dL 300 <300 mg/dL [facility] INTERNAL Albumin Urine mg/g Cr <30 <30 MG/G Creatinine [facility] INTERNAL Urine 06/20/2023 Nathalie Tate MD LAB - NON-BEAKER NON -BLOOD [facility] INTERNAL * Occult blood stool 1-3 spec (01/20/2022 10:57 AM CDT) Occult Blood Slide 1 Negative Negative FROYLAN 01/20/2022 11:46 AM CDT LABORATORY Stool RECTAL CONTENTS / Unknown Non-blood Collection / Unknown 01/20/2022 10:57 AM CDT 01/20/2022 11:01 AM CDT Quin Lawler APRN [employer] LAB - STOOLS NEELAE NIKKO LABORATORY [facility] [address] [facility] Lab (1st floor, no room number) [place] [address], [facility] [phone] * Hepatitis C antibody (01/20/2022 1:02 AM CDT) Hepatitis C Antibody Nonreactive Nonreactive 01/22/2022 2:30 PM CDT SPECIALTY CORE/PROT/EN DO Blood STRUCTURE OF LEFT UPPER LIMB / Unknown Venipuncture / Unknown 01/20/2022 1:02 AM CDT 01/20/2022 1:10 AM CDT Narrative [facility] SPECIALTY CORE/PROT/ENDO - 01/22/2022 2:30 PM CDT Assay performance characteristics have not been established for newborns, infants, and children. Anastacio Terry DO LAB - BLOOD ORDERABL ES [facility] SPECIALTY CORE/PROT/ENDO [facility] Specialty Core/Prot/Endo [address] [facility] [address], [address] [place] [address], [facility] [phone] * COLONOSCOPY W BIOPSY (05/09/2014) Alton Alonzo MD PROCEDURES from Last 3 Months or Most Recently Relevant to Health Maintenance Advance Directives For more information, please contact: [phone] Documents on File Type Date Recorded Patient Splitting Machine Feeder Expl anation Advance Directives and Living Will 10/27/2018 5:32 AM POLST 10/23/2018 Advance Directives and Living Will 06/20/2015 11:45 AM Health Care Directiv e 03/23/2015 * Full Code (Latest Code Status on File) Date Activated Date Inactivated Comments 02/29/2024 1:23 AM All basic and advanced life-sustaining interventions are performed as appropriate Question Answer Comments Code status determined by: Other (please jules falk) * Full Code Date Activated Date Inactivated Comments 12/24/2023 11:09 PM 12/28/2023 1:29 PM All basic an d advanced life-sustaining interventions are performed as appropriate Question Answer Comments Code status determined by: Discussion with janellee nt/ legal decision maker * Full Code Date Activated Date Inactivated Comments 12/09/2023 7:57 PM 12/11/2023 4:13 PM All basic an d advanced life-sustaining interventions are performed as appropriate Question Answer Comments Code status determined by: Discussion with moreno nt/ legal decision maker * Full Code Date Activated Date Inactivated Comments 01/20/2022 12:15 AM 01/21/2022 5:29 PM All basic and advanced life-sustaining interventions are performed as appropriate Question Answer Comments Code status determined by: Discussion with patie nt/ legal decision maker * Full Code Date Activated Date Inactivated Comments 08/18/2019 1:45 PM 01/19/2022 7:04 PM Question Answer Comments Code status determined by: Discussion with patie nt/legal decision maker Healthcare Agents on File Name Relationship Healthcare Agent Relationshi p Communication Porsche [place] Spouse Health Care Agent Care Teams Hitch Technician Relationship Specialty Start Date End Date Nathalie Tate MD [address] [place] [address] PCP - General Family Medicine 12/09/23 Nathalie Tate MD [address] [place] [address] Assigned PCP 06/28/23
--- OUTSIDE RECORDS SUMMARY | 2024-03-04 03:47 | XMS_ITS | Referral Summary ---
Author Name Unknown Organization [facility] Address [address] [place] [address]. [place] [address] Care Team Providers Care Swine Nutritionist Name Role Phone Nathalie Tate MD Unavailable [phone] Nathalie Tate MD Primary Care Provider Encounters Date Type Department Care Team Description 02/28/2024 Travel 02/28/2024 12:32 PM CDT - Present Hospital Encounter [place] [address] [facility] [address] [place] [phone] Khadar Jones MD Wu Klasek, Connie, MD Chen, George Anthony, MD Moderate dementia associated with alcoholism, without behavioral disturbance, psychotic disturbance, mood disturbance, or anxiety (H) (Primary Dx); Orthostatic hypotension; Near syncope 01/29/[address] [address] Nathalie Tate MD Orders (Physician In Private Practice) 12/31/2023 Travel 12/31/2023 4:45 PM CDT Office Visit [address] [address] Nathalie Tate MD History of CVA (cerebrovascular accident) (Primary Dx); Cerebrovascular accident (CVA), unspecified mechanism (H); Chemical dependency (H); Alcoholism (H) 12/30/2023 Telephone [facility] [address] [place] [phone] Nathalie Tate MD Home Care/Hospice ([facility]); Updated Home Care Orders 12/29/2023 Care Coordination [facility] [address] [place] [address] Nathalie Tate MD Clinic Care Coordination - Post Hospital (CVA) 12/29/2023 MyC Medical Advice [facility] [address] [place] [phone] Conchita Mayo CMA 12/24/2023 10:04 PM [facility] - 12/28/2023 11:29 AM CDT Hospital Encounter [facility] [address] [place] [address] Marco Watson, Brooke Rodriguez MD Cerebrovascular accident (CVA), unspecified mechanism (H) (Primary Dx); Imbalance due to old stroke Discharge Disposition: Home-Health Care Svc 12/25/2023 9:09 AM [facility] - 12/25/2023 11:59 PM [facility] Hospital Encounter [facility] EEG [address] [place] [phone] Marco Watson DO Muthyala, Abijah Hemraj, MD Discharge Disposition: Home or Self Care 12/24/2023 Travel 12/24/2023 5:28 PM [facility] - 12/24/2023 9:33 PM [facility] Emergency [facility] Emergency Dept [address] [place] [phone] Cali Cedillo MD Acute ischemic stroke (H) Discharge Disposition: Another Health Care Institution with Planned Hospital IP Readmission 12/17/2023 Telephone [facility] [address] [place] [phone] Nathalie Tate MD 12/16/2023 Travel 12/16/2023 Telephone [facility] [address] [place] [address] [address] [place] [address] Nathalie Tate MD Orders ([facility]) 12/16/2023 3:00 PM [facility] Office Visit [facility] [address] [place] [phone] Clementine Tabares PA-C Dementia, unspecified dementia severity, unspecified dementia type, unspecified whether behavioral, psychotic, or mood disturbance or anxiety (H) (Primary Dx); Dehydration; Unsteady gait when walking; Hematuria, unspecified type; Nephrolithiasis; Pulmonary nodules; History of CVA (cerebrovascular accident); Stage 3 chronic kidney disease, unspecified whether stage 3a or 3b CKD (H); Alcoholism (H); [facility] 12/12/2023 Care Coordination [facility] [address] [address] Nathalie Tate MD Clinic Care Coordination - Post Hospital (Unsteady gait, hematuria, dehydration) 12/09/2023 12:30 PM [facility] - 12/11/2023 2:12 PM [facility] Emergency [facility] Observation Dept [address] [place] [phone] Akash Ramirez MD Richardson, Elizabeth, MD Dalsanto, Mariposa Ronquillo MD Unsteady gait when walking (Primary Dx); Dehydration; Syncope, unspecified syncope type; Confusion; Elevated troponin; Hematuria, unspecified type; Dementia (H); Nephrolithiasis Discharge Disposition: Home or Self Care 12/09/2023 Travel from Last 3 Months Allergies Active Allergy Reactions Criticality Noted Date [...] every evening 01/31/2022 Suspended vitamin D2 (ERGOCALCIFEROL) 89071 units (1250 mcg) capsuleIndication s:Alcoholism (H) Take [...] Suspended phenylephrine (LEATHA-SYNEPHRINE) 1 % nasal spray [place] 1 drop into both nostrils daily as [...] by automated process. Provider to review [facility] 09/07/2012 Overview: State Tier Level: Tier 1 Status: n/a Custom Harvester: n/a See Letters for [facility] Care Plan Essential hypertension, benign [...] maker(s). Added by Porsche Palencia Advance Care Plannin03-17-14 ACP Review and Resources Provided: Reviewed chart for advance care plan. Jed Alamo has no plan or code status on file. Discussed available resources and provided with information. Confirmed code status reflects current choices pending further ACP discussions. Confirmed/documented designated decision maker(s). See permanent comments section of demographics in clinical tab. Added by Venita Mcnairache 02/14/2012 03/06/2012 Overview: Problem list name updated by automated process. Provider to review HTN (hypertension), benign 0 03/16/2009 Hyperlipidemia 03/16/2009 Myasthenia gravis 10/02/2015 Overview: neurology, Dr. Martínez Alcohol abuse, in remission 04/05/2015 Overview: AA weekly Immunizations Name Administration Dates Next Due COVID-19 MONOVALENT 12+ (Pfizer) 01/22/2021,12/18 Influenza (H1N1) 09/20/2009 Influenza (IIV3) PF 08/11/2013,09/07/2012,2008 Influenza Vaccine >6 months,quad, PF ,07/27/2020,09/13/2019,2017,08/23/2015 Pneumococcal 23 valent 11/19/2021,08/23/2015 TD,PF 7+ (Tenivac) 10/20/2006,11/19/2003 TDAP Vaccine (Adacel) 12/09/2018 TDAP Vaccine (Boostrix) 03/12/2012 Zoster recombinant adjuvante d (SHINGRIX) 12/16/2019,10/17/2019 Social History Tobacco Use Types Packs/Day Years [...] 02/29/2024 1:15 AM CDT Plan of Treatment Not on file Goals Goal Patient Goal Type Associated Problems Recent Progress Patient-Stated? Author Transportation General On track( 019 3:46 PM [facility]) Yes Nani Sainz LSW Note: Goal Statement: Caregiver will learn of options for transportation and volunteer respite services. Measure of Success: Caregiver will know if options are available. Supportive Steps to Achieve: CC will send resources via text and caregiver will call. Barriers: recently moved home after rehab. Strengths: Caregiver works, just started with adult day health services today, 1-9 Date to Achieve [...] EXTRA TUBE STAT 02/28/2024 1:00 PM CDT ME COLLECTION VENOUS BLOOD VENIPUNCTURE Routine 12/31/2023 4:55 PM CDT History of CVA (cerebrovascular accident) COMPREHENSIVE METABOLIC PANEL (BFP) Routine 12/31/2023 History of CVA (cerebrovascular accident) HEMOGRAM PLATELET DIFF (BFP) Routine 12/31/2023 History of CVA (cerebrovascular accident) GLUCOSE BY METER Routine 12/28/2023 8:20 AM CDT GLUCOSE BY METER Routine 12/28/2023 12:0 8 AM [facility] BASIC METABOLIC PANEL Routine 12/27/2023 7:46 AM [facility] GLUCOSE BY METER Routine 12/26/2023 10:0 8 PM [facility] GLUCOSE BY METER Routine 12/26/2023 5:25 PM [facility] GLUCOSE BY METER Routine 12/26/2023 12:0 9 PM [facility] GLUCOSE BY METER Routine 12/26/2023 7:41 AM [facility] GLUCOSE BY METER Routine 12/26/2023 1:56 AM [facility] GLUCOSE BY METER Routine 12/25/2023 10:0 6 [address] [facility] [address] HEAD W/O CONTRAST Routine 12/25/2023 7:00 PM [facility] GLUCOSE BY METER Routine 12/25/2023 1:36 PM [facility] EEG AWAKE OR DROWSY ROUTINE Routine 12/25/2023 11:21 AM [facility] GLUCOSE BY METER Routine 12/25/2023 8:49 AM [facility] ECHO COMPLETE Routine 12/25/2023 8:16 AM [facility] EKG 12-LEAD, TRACING ONLY Routine 12/25/2023 6:38 AM [facility] PARTIAL THROMBOPLASTIN TIME Routine 12/25/2023 5:21 AM [facility] INR Routine 12/25/2023 5:21 AM [facility] BASIC METABOLIC PANEL Routine 12/25/2023 5:21 AM [facility] CBC WITH PLATELETS Routine 12/25/2023 5: 21 AM [facility] MR BRAIN W/O CONTRAST Routine 12/25/2023 4:14 AM [facility] LIPID REFLEX TO DIRECT LDL PANEL STAT 12/24/2023 11:28 PM [facility] HEMOGLOBIN A1C STAT 12/24/2023 11:28 PM [facility] GLUCOSE BY METER Routine 12/24/2023 11:0 9 PM [facility] EKG 12-LEAD, TRACING ONLY STAT 12/24/2023 6:55 PM [facility] AMMONIA STAT 12/24/2023 5:56 PM [facility] CTA HEAD NECK W CONTRAST STAT 12/24/2023 5:55 PM [facility] CT HEAD W/O CONTRAST STAT 12/24/2023 5:48 PM [facility] CBC WITH PLATELETS & DIFFERENTIAL STAT 12/24/2023 5:42 PM [facility] HEPATIC FUNCTION PANEL STAT 5:42 PM [facility] ETHYL ALCOHOL LEVEL STAT 12/24/2023 5 :42 PM [facility] CBC WITH PLATELETS AND DIFFERENTIAL STAT 12/24/2023 5:42 PM [facility] TROPONIN T, HIGH SENSITIVITY STAT 12/24/2023 5:42 PM [facility] PARTIAL THROMBOPLASTIN TIME STAT 12/24/2023 5:42 PM [facility] INR STAT 12/24/2023 5:42 PM [facility] BASIC METABOLIC PANEL STAT 12/24/2023 5:42 PM [facility] GLUCOSE BY METER STAT 12/24/2023 5:38 PM [facility] MAGNESIUM Routine 12/11/2023 5:00 AM [facility] PHOSPHORUS Routine 12/11/2023 5:00 AM [facility] POTASSIUM Routine 12/11/2023 5:00 AM [facility] MAGNESIUM Timed 12/10/2023 1:45 PM [facility] CBC WITH PLATELETS & DIFFERENTIAL STAT 12/10/2023 5:52 AM [facility] CBC WITH PLATELETS AND DIFFERENTIAL STAT 12/10/2023 5:52 AM [facility] MAGNESIUM Routine 12/10/2023 5:52 AM [facility] PHOSPHORUS Routine 12/10/2023 5:52 AM [facility] HEPATIC FUNCTION PANEL Routine 5:52 AM [facility] BASIC METABOLIC PANEL Routine 12/10/2023 5:52 AM [facility] MR BRAIN W/O & W CONTRAST STAT 12/09/2023 9:30 PM [facility] INFLUENZA A/B, RSV, & SARS-COV2 PCR STAT 12/09/2023 8:18 PM [facility] XR CHEST 2 VIEWS STAT 12/09/2023 3:44 PM [facility] TROPONIN T, HIGH SENSITIVITY STAT 12/09/2023 3:20 [address] [facility] [address] ABDOMEN PELVIS W/O CONTRAST STAT 12/09/2023 2:54 PM [facility] [address] HEAD W/O CONTRAST STAT 12/09/2023 2:53 PM [facility] EKG 12-LEAD, TRACING ONLY STAT 12/09/2023 2:19 PM [facility] BLOOD CULTURE STAT 12/09/2023 1:52 PM [facility] CBC WITH PLATELETS & DIFFERENTIAL STAT 12/09/2023 1:15 PM [facility] BLOOD CULTURE STAT 12/09/2023 1:15 PM [facility] D DIMER QUANTITATIVE STAT 12/09/2023 1:15 PM [facility] ETHYL ALCOHOL LEVEL STAT 12/09/2023 1 :15 PM [facility] MAGNESIUM Add-On 12/09/2023 1:15 PM [facility] EXTRA RED TOP TUBE STAT 12/09/2023 1: 15 PM [facility] EXTRA BLUE TOP TUBE STAT 12/09/2023 1 :15 PM [facility] CBC WITH PLATELETS AND DIFFERENTIAL STAT 12/09/2023 1:15 PM [facility] EXTRA TUBE STAT 12/09/2023 1:15 PM [facility] LACTIC ACID WHOLE BLOOD STAT 12/09/2023 1:15 PM [facility] KETONE BETA-HYDROXYBUTYRATE QUANTITATIVE, RAPID STAT 12/09/2023 1:15 PM [facility] CK TOTAL STAT 12/09/2023 1:15 PM [facility] TROPONIN T, HIGH SENSITIVITY STAT 12/09/2023 1:15 PM [facility] BASIC METABOLIC PANEL STAT 12/09/2023 1:15 PM [facility] EKG 12-LEAD, TRACING ONLY STAT 12/09/2023 1:07 PM [facility] GLUCOSE BY METER STAT 12/09/2023 1:06 PM [facility] URINE CULTURE Add-On 12/09/2023 12:55 PM [facility] ROUTINE UA WITH MICROSCOPIC REFLEX TO CULTURE STAT 12/09/2023 12:55 PM [facility] [address] CHEST LUNG CANCER SCREEN LOW DOSE [...] of4 resultswithin the time period is included. [facility] WBC Count 6.9 4.0 - 11.0 10e3/uL [...] MD LAB - BLOO D ORDERABLES LABORATORY [facility] [address] 1[address] floor, [address] [place] [address], [facility] [phone] * (ABNORMAL) Basic metabolic panel (03/03/2024 12:59 PM CDT) Only the most recent of9 resultswithin the time period is included. [facility] Sodium 141 135 - 145 mmol/L 03/03/2024 [...] MD LAB - BLOO D ORDERABLES LABORATORY [facility] [address] floor, [address] [place] [address], [facility] [phone] * Folate (03/02/2024 10:45 AM CDT) Pathologist [facility] Folic Acid 25.6 4.6 - 34.8 ng/mL 03/02/2024 2:29 PM CDT [facility] LABORATORY Blood STRUCTURE OF RIGHT UPPER LIMB / Unknown Venipuncture / Unknown 03/02/2024 10:45 AM CDT 03/02/2024 11:09 AM CDT Margarita Manrique MD LAB - BLOO D ORDERABLES U LABORATORY [facility] [place] [facility] [address], [address] [place] [address], [facility] * TSH with free T4 reflex (03/01/2024 12:50 PM CDT) TSH 0.46 0.30 - 4.20 uIU/mL 03/01/2024 5:22 PM CDT LABORATORY Blood STRUCTURE OF RIGHT UPPER LIMB / Unknown Venipuncture / Unknown 03/01/2024 12:50 PM CDT 03/01/2024 1:07 PM CDT Margarita Manrique MD LAB - BLOO D ORDERABLES LABORATORY [facility] [address], [address] [place] [address], [facility] [phone] * Vitamin B12 (03/01/2024 12:50 PM CDT) Vitamin B12 1,058 232 - 1,245 pg/mL 03/01/2024 9:57 PM CDT LABORATORY Blood STRUCTURE OF RIGHT UPPER LIMB / Unknown Venipuncture / Unknown 03/01/2024 12:50 PM CDT 03/01/2024 1:07 PM CDT Margarita Manrique MD LAB - BLOO D ORDERABLES U LABORATORY [facility] [place] [facility] [address] [place] [address], [facility] * (ABNORMAL) CBC with platelets and differential (02/29/2024 5:44 AM CDT) Only the most recent of5 resultswithin the time period is included. WBC Count 7.6 4.0 - 11.0 10e3/uL 02/29/2024 7:00 AM [facility] RBC Count 3.83(L) 4.40 - 5.90 10e6/uL 02/29/2024 7:00 AM [facility] Hemoglobin 11.6(L) 13.3 - 17.7 g/dL 02/29/2024 7:00 AM [facility] Hematocrit 34.9(L) 40.0 - 53.0 % 02/29/2024 7:00 AM [facility] MCV 91 78 - 100 fL 02/29/2024 7:00 AM [facility] MCH 30.3 26.5 - 33.0 pg 02/29/2024 7:00 AM [facility] MCHC 33.2 31.5 - 36.5 g/dL 02/29/2024 7:00 AM [facility] RDW 13.1 10.0 - 15.0 % 02/29/2024 7:00 AM [facility] Platelet Count 183 150 - 450 10e3/uL 02/29/2024 7:00 AM [facility] % Neutrophils 61 % 02/29/2024 7:00 AM [facility] % Lymphocytes 27 % 02/29/2024 7:00 AM [facility] % Monocytes 8 % 02/29/2024 7:00 AM [facility] % Eosinophils 3 % 02/29/2024 7:00 AM [facility] % Basophils 1 % 02/29/2024 7:00 AM [facility] % Immature Granulocytes 0 % 02/29/2024 7:00 AM [facility] NRBCs per 100 WBC 0 <1 /100 024 7:00 AM [facility] Absolute Neutrophils 4.7 1.6 - 8.3 10e3/uL 02/29/2024 7:00 AM [facility] Absolute Lymphocytes 2.1 0.8 - 5.3 10e3/uL 02/29/2024 7:00 AM [facility] Absolute Monocytes 0.6 0.0 - 1.3 10e3/uL 02/29/2024 7:00 AM CDT LABORATORY Absolute Eosinophils 0.2 0.0 - 0.7 10e3/uL 02/29/2024 7:00 AM CDT LABORATORY Absolute Basophils 0.1 0.0 - 0.2 10e3/uL 02/29/2024 7:00 AM CDT LABORATORY Absolute Immature Granulocytes 0.0 <=0.4 10e3/uL 02/29/2024 7:00 AM CDT LABORATORY Absolute NRBCs 0.0 10e3/uL 02/29/2024 7:00 AM CDT LABORATORY Blood STRUCTURE OF RIGHT HAND / Unknown Venipuncture / Unknown 02/29/2024 5:44 AM CDT 02/29/2024 6:51 AM CDT Isaac Cunningham MD LAB - BLOOD ORDER SANTO LABORATORY [facility] [address], [address] [place] [address], [facility] [phone] * MR Brain w/o & w Contrast [...] MR BRAIN W/O and W CONTRAST LOCATION: [facility] DATE: 02/28/2024 INDICATION: Patient with altered mental [...] MR BRAIN W/O and W CONTRAST LOCATION: [facility] DATE: 02/28/2024 INDICATION: Patient with altered mental [...] EXAM: CTA HEAD NECK W CONTRAST LOCATION: [facility] DATE: 02/28/2024 INDICATION: Change in mental status, [...] EXAM: CTA HEAD NECK W CONTRAST LOCATION: [facility] DATE: 02/28/2024 INDICATION: Change in mental status, [...] narrowing throughout majorneck vessels. Susie Irwin MD [facility] ORDERABLES * Head CT w/o contrast [...] CDT EXAM: CT HEAD W/O CONTRAST LOCATION: [facility] DATE: 02/28/2024 INDICATION: Change in mental status [...] 02/28/2024 EXAM: CT HEAD W/O CONTRAST LOCATION: [facility] DATE: 02/28/2024 INDICATION: Change in mental status [...] Irwin MD LAB - BLOOD ORDERABL ES LABORATORY [facility] [address], [address] [place] [address], [facility] [phone] * Extra Red Top Tube (02/28/2024 1:00 PM CDT) Only the most recent of2 resultswithin the time period is included. Hold Specimen JIC 02/28/2024 2:16 PM CDT LABORATORY Blood BLOOD SPECIMEN / Unknown Venipuncture / Unknown 02/28/2024 1:00 PM CDT 02/28/2024 1:11 PM CDT Khadar Jones MD LAB - BLOOD ORDERA BLES LABORATORY [facility] [address], [address] [place] [address], [facility] [phone] * Extra Blue Top Tube (02/28/2024 1:00 PM CDT) Only the most recent of2 resultswithin the time period is included. Hold Specimen JIC 02/28/2024 2:16 PM CDT LABORATORY Blood BLOOD SPECIMEN / Unknown Venipuncture / Unknown 02/28/2024 1:00 PM CDT 02/28/2024 1:11 PM CDT Khadar Jones MD LAB - BLOOD ORDERA BLES Performing Organization Address City/[facility]/ZIP Co de Phone Number LABORATORY [facility] [address], [address] [place] [address], [place] [phone] * (ABNORMAL) Troponin T, High Sensitivity (02/28/2024 [...] MD LAB - BLOOD ORDERA BLES LABORATORY [facility] [address], [address] [place] [address], [facility] [phone] * (ABNORMAL) Comprehensive metabolic panel (02/28/2024 1:00 PM CDT) [facility] Sodium 139 135 - 145 mmol/L 02/28/2024 1:39 PM T LABORATORY Comment:Reference intervals for this test were updated on 07/15/2023 to more accurately reflect our healthy population. There may be differences in the flagging of prior results with similar values performed with this method. Interpretation of those prior results can be made in the context of the updated reference intervals. Potassium 4.0 3.4 - 5.3 mmol/L 02/28/2024 1:39 PM CDT LABORATORY Carbon Dioxide (CO2) 18(L) 22 - 29 mmol/L 02/28/2024 1:39 PM T LABORATORY Anion Gap 17(H) 7 - 15 mmol/L 02/28/2024 1:39 PM T LABORATORY Urea Nitrogen 20.9 8.0 - 23.0 mg/dL 02/28/2024 1:39 PM CDT LABORATORY Creatinine 1.53(H) 0.67 - 1.17 mg/dL 02/28/2024 1:39 PM CDT LABORATORY GFR Estimate 50(L) >60 mL/min/1. 73m2 02/28/2024 1:39 PM CDT LABORATORY Calcium 8.8 8.8 - 10.2 mg/dL 02/28/2024 1:39 PM T LABORATORY Chloride 104 98 - 107 mmol/L 02/28/2024 1:39 PM T LABORATORY Glucose 123(H) 70 - 99 mg/dL 02/28/2024 1:39 PM CDT LABORATORY Alkaline Phosphatase 135 40 - 150 U/L 02/28/2024 1:39 PM CDT LABORATORY Comment:Reference [...] MD LAB - BLOOD ORDERA BLES LABORATORY [facility] [address], [address] [place] [address], [place] [phone] * Alcohol level blood (02/28/2024 1:00 PM CDT) Only the most recent of3 resultswithin the time period is included. Alcohol ethyl <0.01 <=0.01 g/dL 02/28/2024 1:39 PM CDT LABORATORY Blood BLOOD SPECIMEN / Unknown Venipuncture / Unknown 02/28/2024 1:00 PM CDT 02/28/2024 1:11 PM CDT Khadar Jones MD LAB - BLOOD ORDERA BLES LABORATORY [facility] [address], [address] [place] [address], [facility] [phone] * (ABNORMAL) HEMOGRAM PLATELET DIFF (BFP) (12/31/2023) [...] of13 resultswithin the time period is included. [facility] GLUCOSE BY METER POCT 99 70 - 99 mg/dL 12/28/2023 8:27 AM CDT LABORATORY POC Blood, Capillary BLOOD SPECIMEN / Unknown 12/28/2023 8:20 AM CDT 12/28/2023 8:27 AM CDT Brooke Carlton MD LAB - KALEE P OCT LABORATORY POC [facility] [address], [address] [place] [address], [place] [phone] * EEG Awake or Drowsy Routine (12/25/2023 11:21 AM [facility]) Narrative [facility] - 12/25/2023 3:35 PM [facility] EEG Awake or Drowsy Routine Result EEG DATE: 12/25/23 EEG LOG: [id number] PORTABLE EEG #: 0 EEG SOURCE FILE DURATION: 30 MIN [...] [facility] * ECHO COMPLETE (12/25/2023 8:16 AM [facility]) LVEF 60-65% CARDIOLOGY RESULTS Anatomical Region Laterality Modality Echocardiography 12/25/2023 7:46 AM [facility] Narrative 12/25/2023 11:37 AM [facility] [id number]^MUTHYALA^ABIJAH^HEMRAJ [facility] Echocardiography Laboratory [address] [place] [address] Name: JED ALAMO : 1955 Study Date: 12/25/2023 07:46 AM Age: 68 yrs Gender: Male Patient Location: [facility] Reason For Study: Cerebrovascular Incident Ordering Physician: [...] Procedure Note Ofelia Trejo MD - 12/25/2023 [id number]^BIANKA^BROOKE^CANDICE [facility] Echocardiography Laboratory [address] [place] [address] Name: JED ALAMO : 1955 Study Date: 12/25/2023 07:46 AM Age: 68 yrs Gender: Male Patient Location: [facility] Reason For Study: Cerebrovascular Incident Ordering Physician: [...] EKG 12-lead, Tracing only (12/25/2023 6:38 AM [facility]) Only the most recent of4 resultswithin the time period is included. [facility] Systolic Blood Pressure mmHg RADIOLOGY RESULTS Diastolic Blood Pressure mmHg RADIOLOGY RESULTS Ventricular Rate 67 BPM RAD IOLOGY RESULTS Atrial Rate 67 BPM RADIOLOG Y RESULTS ME Interval 160 ms RADIOLOG Y RESULTS QRS Duration 90 ms RADIOLO GY RESULTS QT 414 ms RADIOLOGY RESULTS QTc 437 ms RADIOLOGY RESULTS P Anderson 67 degrees RADIOLOGY RESULTS R AXIS 76 degrees RADIOLOGY RESULTS T Anderson 71 degrees RADIOLOGY RESULTS Interpretation ECG Sinus rhythm Normal ECG When compared with ECG of 24-DEC-2023 18:55, No significant change was found Confirmed by MD CAROLINA, YE ([id number]), food editor Brice Tovar ([id number]) on 12/26/2023 9:11:17 AM RADIOLOGY RESULTS 12/25/2023 6:38 AM [facility] 12/26/2023 9:11 AM [facility] Brooke Carlton MD ECG ORDERABLES RADIOLOGY RESULTS * INR (12/25/2023 5:21 AM [facility]) Only the most recent of2 resultswithin the time period is included. [facility] INR 1.00 0.85 - 1.15 12/25/2023 5:53 AM [facility] Blood STRUCTURE OF RIGHT UPPER LIMB / Unknown Venipuncture / Unknown 12/25/2023 5:21 AM [facility] 12/25/2023 5:38 AM [facility] Brooke Carlton MD LAB - BLOOD OR DERABLES LABORATORY [facility] [address] 1[address], [address] [place], [place] [address], [facility] [phone] * Partial thromboplastin time (12/25/2023 5:21 AM [facility]) Only the most recent of2 resultswithin the time period is included. [facility] aPTT 27 22 - 38 Seconds 12/25/2023 5:53 AM [facility] LABORATORY Blood STRUCTURE OF RIGHT UPPER LIMB / Unknown Venipuncture / Unknown 12/25/2023 5:21 AM [facility] 12/25/2023 5:38 AM [facility] Brooke Carlton MD LAB - BLOOD OR DERABLES LABORATORY [facility] [address] 1[address] floor, [address] [place] [address], [facility] [phone] * MR Brain w/o Contrast (12/25/2023 4:14 AM [facility]) Anatomical Region Laterality Modality Head, SUBRAD MR NEURO, UMP MR NEURO, RAD MR Magnetic Resonance 12/25/2023 4:14 AM [facility] Impressions 12/25/2023 4:22 AM [facility] IMPRESSION: 1. ??No acute intracranial process. 2. ??Stable chronic changes as detailed above. Narrative 12/25/2023 4:22 AM [facility] EXAM: MR BRAIN W/O CONTRAST LOCATION: [facility] DATE: 12/25/2023 INDICATION: Acute ischemic stroke COMPARISON: [...] 12/25/2023 EXAM: MR BRAIN W/O CONTRAST LOCATION: [facility] DATE: 12/25/2023 INDICATION: Acute ischemic stroke COMPARISON: [...] reflex to direct LDL (12/24/2023 11:28 PM [facility]) Cholesterol 166 <200 mg/dL 12/25/2023 3:05 AM [facility] Triglycerides 138 <150 mg/dL 12/25/2023 3:05 AM [facility] Direct Measure HDL 49 >=40 mg/dL 2023 3:05 AM [facility] LDL Cholesterol Calculated 89 <=100 mg/dL 12/25/2023 3:05 AM [facility] Non HDL Cholesterol 117 <130 mg/dL 12/25/2023 3:05 AM [facility] Blood STRUCTURE OF RIGHT UPPER LIMB / Unknown Venipuncture / Unknown 12/24/2023 11:28 PM [facility] 12/24/2023 11:44 PM [facility] Narrative [facility] - 12/25/2023 3:05 AM [facility] Cholesterol Desirable: ??<200 mg/dL Triglycerides Normal: ??Less [...] ??Greater than or equal to 220 mg/dL Brooek Carlton MD LAB - BLOOD OR DERABLES LABORATORY [facility] [place] [facility] [address], [address] [place] [address], [place] [phone] * Hemoglobin A1c (12/24/2023 11:28 PM [facility]) Hemoglobin A1C 5.2 <5.7 % 12/24/2023 11:59 PM [facility] Comment: Normal <5.7% Prediabetes 5.7-6.4% ?? Diabetes 6.5% or higher Note: Adopted from ADA consensus guidelines. Blood STRUCTURE OF RIGHT UPPER LIMB / Unknown Venipuncture / Unknown 12/24/2023 11:28 PM [facility] 12/24/2023 11:44 PM [facility] Brooke Carlton MD LAB - BLOOD OR DERABLES LABORATORY [facility] [address] 1st floor, [address] [place] [address], [place] [phone] * Hepatic function panel (12/24/2023 5:42 PM [facility]) Only the most recent of2 resultswithin the time period is included. Pathologist [facility] Protein Total 7.0 6.4 - 8.3 g/dL 12/24/2023 6:31 PM [facility] Albumin 4.4 3.5 - 5.2 g/dL 12/24/2023 6:31 PM [facility] Bilirubin Total 0.3 <=1.2 mg/dL 12/24/2023 6:31 PM [facility] Alkaline Phosphatase 131 40 - 150 U/L 12/24/2023 6:31 PM [facility] Comment:Reference intervals for this test were updated on 09/02/2023 to more accurately reflect our healthy population. There may be differences in the flagging of prior results with similar values performed with this method. Interpretation of those prior results can be made in the context of the updated reference intervals. AST 24 0 - 45 U/L 12/24/2023 6:31 PM [facility] Comment:Reference intervals for this test were updated on 03/31/2023 to more accurately reflect our healthy population. There may be differences in the flagging of prior results with similar values performed with this method. Interpretation of those prior results can be made in the context of the updated reference intervals. ALT 55 0 - 70 U/L 12/24/2023 6:31 PM [facility] Comment:Reference intervals for this test were updated on 03/31/2023 to more accurately reflect our healthy population. There may be differences in the flagging of prior results with similar values performed with this method. Interpretation of those prior results can be made in the context of the updated reference intervals. Bilirubin Direct <0.20 0.00 - 0.30 mg/dL 12/24/2023 6:31 PM [facility] Blood BLOOD SPECIMEN / Unknown Venipuncture / Unknown 12/24/2023 5:42 PM [facility] 12/24/2023 5:45 PM [facility] Cali Cedillo MD LAB - BLOOD ORDERABL ES [facility] LABORATORY [facility] Lab [address] [facility] Lab (1st floor, no room number) [place] [address], [facility] [phone] * Potassium (12/11/2023 5:00 AM [facility]) Potassium 3.8 3.4 - 5.3 mmol/L 12/11/2023 5:37 AM [facility] Blood STRUCTURE OF LEFT HAND / Unknown Venipuncture / Unknown 12/11/2023 5:00 AM [facility] 12/11/2023 5:17 AM [facility] Mariposa Cooper MD LAB - BLOOD ORDER SANTO Performing Organization Address City/[facility]/ZIP Co de Phone Number [facility] Lab [address] Lab (1st floor, no room number) [place] [address], [facility] [phone] * Phosphorus (12/11/2023 5:00 AM [facility]) Only the most recent of2 resultswithin the time period is included. Phosphorus 3.7 2.5 - 4.5 mg/dL 12/11/2023 5:37 AM [facility] LABORATORY Blood STRUCTURE OF LEFT HAND / Unknown Venipuncture / Unknown 12/11/2023 5:00 AM [facility] 12/11/2023 5:17 AM [facility] Mariposa Cooper MD LAB - BLOOD ORDER SANTO Performing Organization Address [facility]/ZIP Co de Phone Number [facility] Lab [address] Lab (1st floor, no room number) [place] [address], [facility] [phone] * Magnesium (12/11/2023 5:00 AM [facility]) Only the most recent of4 resultswithin the time period is included. Magnesium 2.0 1.7 - 2.3 mg/dL 12/11/2023 5:37 AM [facility] Blood STRUCTURE OF LEFT HAND / Unknown Venipuncture / Unknown 12/11/2023 5:00 AM [facility] 12/11/2023 5:17 AM [facility] Sari Vasquez PA-C LAB - BLOOD ORDERA BLES [facility] LABORATORY [facility] Acute [facility] Lab [address] [facility] Lab (1st floor, no room number) [place] [address], [facility] [phone] * Symptomatic Influenza A/B, RSV, & SARS-CoV2 PCR (COVID-19) Nasopharyngeal (12/09/2023 8:18 PM [facility]) Influenza A PCR Negative Negative 12/09/2023 9:14 PM [facility] Influenza B PCR Negative Negative 12/09/2023 9:14 PM [facility] RSV PCR Negative Negative 12/09/2023 9:14 PM [facility] SARS CoV2 PCR Negative Negative 12/09/2023 9:14 PM [facility] Comment:NEGATIVE: SARS-CoV-2 (COVID-19) RNA not detected, presumed negative. Swab NASOPHARYNGEAL STRUCTURE / Unknown Non-blood Collection / Unknown 12/09/2023 8:18 PM [facility] 12/09/2023 8:26 PM [facility] Narrative [facility] - 12/09/2023 9:14 PM [facility] Testing was performed using the Xpert Xpress CoV2/Flu/RSV Assay on the [employer] GeneXpert Instrument. This test should be ordered [...] management. This test was validated by the [facility] [employer]. These laboratories are certified under the Clinical Laboratory Improvement Amendments of 1988 (CLIA-88) as qualified to perform high complexity laboratory testing. Mariposa Cooper MD LAB - MICRO GENER AL ORDERABLES [facility] Lab [address] Lab (1st floor, no room number) [place] [address], [facility] [phone] * Chest XR, PA & LAT (12/09/2023 3:44 PM [facility]) Anatomical Region Laterality Modality Chest Digital Radiogra phy Impressions 12/09/2023 3:52 PM [facility] IMPRESSION: Cardiopericardial silhouette is within normal limits. Aortic arch calcification. No focal airspace consolidation. No pleural effusion. No discernible pneumothorax. No acute displaced fracture. Nodular opacity projecting at the right upper lung measuring up to 7 mm which may represent pulmonary vascular shadows or a pulmonary nodule. Recommend nonemergent follow-up with chest CT. LUIS FELIPE HORTON MD SYSTEM ID: ??[id number] Narrative 12/09/2023 3:52 PM [facility] CHEST TWO VIEWS 12/09/2023 3:44 PM HISTORY: [...] CT. LUIS FELIPE HORTON MD SYSTEM ID: [id number] Akash Ramirez MD IMG DIAGNOSTIC PASCUAL GING ORDERABLES * CT Abdomen Pelvis w/o Contrast (12/09/2023 2:54 PM [facility]) Anatomical Region Laterality Modality Abdomen/Pelvis, SUBRAD CT CAROLANN DY, UMP CT ABDOMEN PELVIS, RAD CT Computed Tomography Impressions 12/09/2023 3:05 PM [facility] IMPRESSION: 1. ??There is a 5 mm calculus within the right proximal ureter at the ureteropelvic junction. No significant hydronephrosis. 2. ??Multiple additional nonobstructing bilateral renal calculi. 3. ??Nonspecific bilateral perinephric stranding does not appear significantly changed. Mild nonspecific bladder wall thickening. These findings can be correlated with urinalysis. LUIS FELIPE HORTON MD SYSTEM ID: ??[id number] Narrative 12/09/2023 3:05 [address] [facility] CT ABDOMEN PELVIS W/O CONTRAST 12/09/2023 2:54 [...] urinalysis. LUIS FELIPE HORTON MD SYSTEM ID: [id number] Akash Ramirez MD [facility] ORDERABLES * Blood Culture Hand, Right (12/09/2023 1:52 PM [facility]) Only the most recent of2 resultswithin the time period is included. Culture No Growth 12/14/2023 3:32 PM [facility] Blood STRUCTURE OF RIGHT HAND / Unknown Venipuncture / Unknown 12/09/2023 1:52 PM [facility] 12/09/2023 1:56 PM [facility] Narrative [facility] - 12/14/2023 3:32 PM [facility] Only an Aerobic Blood Culture Bottle was collected, interpret results with caution. Akash Ramirez MD LAB - MICRO GENERA L ORDERABLES [facility]AT[facility] Inf. Diseases Diag. Lab [address], [address] [place] [address], [place] [phone] * Lactic acid whole blood (12/09/2023 1:15 PM [facility]) Lactic Acid 0.8 0.7 - 2.0 mmol/L 12/09/2023 1:26 PM [facility] Blood BLOOD SPECIMEN / Unknown Venipuncture / Unknown 12/09/2023 1:15 PM [facility] 12/09/2023 1:22 PM [facility] Akash Ramirez MD LAB - BLOOD ORDERA BLES Performing Organization Address City/[facility]/ZIP Co de Phone Number [facility] Lab [address] Lab (1st floor, no room number) [place] [address], [facility] [phone] * (ABNORMAL) Ketone Beta-Hydroxybutyrate Quantitative (12/09/2023 1:15 PM [facility]) Ketone (Beta-Hydroxybuty rate) Quantitative 0.60(H) <=0.30 mmol/L 12/09/2023 1:56 PM [facility] LABORATORY Blood BLOOD SPECIMEN / Unknown Venipuncture / Unknown 12/09/2023 1:15 PM [facility] 12/09/2023 1:23 PM [facility] Akash Ramirez MD LAB - BLOOD ORDERA BLES [facility] Lab [address] Lab (1st floor, no room number) [place] [address], [facility] [phone] * D dimer quantitative (12/09/2023 1:15 PM [facility]) D-Dimer Quantitative 0.27 0.00 - 0.50 ug/mL FEU 12/09/2023 2:25 PM [facility] Blood BLOOD SPECIMEN / Unknown Venipuncture / Unknown 12/09/2023 1:15 PM [facility] 12/09/2023 1:22 PM [facility] Narrative [facility] - 12/09/2023 2:25 PM [facility] This D-dimer assay is intended for use [...] ug/mL = 0.76 ug/mL (760 ug/L). M Raheelhini et al. Age adjusted D-dimer cut-off levels to rule out pulmonary embolism: The ADJUST-PE Study. LAURA 2014;311:8631-3656.; HJ Alison et al. Diagnostic accuracy of conventional or age adjusted D-dimer cutoff values in older patients with suspected venous thromboembolism. Systemic review and meta-analysis. BMJ 2013:346:f2492. Akash Ramirez MD LAB - BLOOD ORDERA BLES LABORATORY [facility] Acute [facility] Lab [address] [facility] Lab (1st floor, no room number) [place] [address], [facility] [phone] * CK total (12/09/2023 1:15 PM [facility]) [facility] CK 162 39 - 308 U/L 12/09/2023 1:56 PM [facility] Blood BLOOD SPECIMEN / Unknown Venipuncture / Unknown 12/09/2023 1:15 PM [facility] 12/09/2023 1:23 PM [facility] Akash Ramirez MD LAB - BLOOD ORDERA BLES [facility] LABORATORY [facility] Lab [address] [facility] Lab (1st floor, no room number) [place] [address], [facility] [phone] * (ABNORMAL) UA with Microscopic reflex to Culture (12/09/2023 12:55 PM [facility]) Color Urine Yellow Colorless, Straw, Light Yellow, Yellow 12/09/2023 1:32 PM [facility] LAB[facility]ATORY Appearance Urine Clear Clear 12/09/19 1:32 PM [facility] Glucose Urine Negative Negative mg/dL 12/09/2023 1:32 PM [facility] Bilirubin Urine Negative Negative 1:32 PM [facility] Ketones Urine 40(A) Negative mg/dL 12/09/2023 1:32 PM [facility] LABORATORY Specific [place] Urine 1.026 1.003 - 1.035 12/09/2023 1:32 PM [facility] Blood Urine Large(A) Negative 12/09/2023 1:32 PM [facility] pH Urine 6.0 5.0 - 7.0 12/09/2023 1:32 PM [facility] Protein Albumin Urine 30(A) Negative mg/dL 12/09/2023 1:32 PM [facility] Urobilinogen Urine Normal Normal, 2.0 mg/dL 12/09/2023 1:32 PM [facility] Nitrite Urine Negative Negative 12/09/2023 1:32 PM [facility] Leukocyte Esterase Urine Negative Negative 12/09/2023 1:32 PM [facility] Mucus Urine Present(A) None Seen /LPF 12/09/2023 1:32 PM [facility] RBC Urine >182(H) <=2 /HPF 12/09/2023 1:32 PM [facility] WBC Urine 6(H) <=5 /HPF 12/09/2023 1:32 PM [facility] Squamous Epithelials Urine <1 <=1 /HPF 12/09/2023 1:32 PM [facility] Hyaline Casts Urine 3(H) <=2 /LPF 12/09/2023 1:32 PM [facility] Urine MID-STREAM URINE SPECIMEN / Unknown Non-blood Collection / Unknown 12/09/2023 12:55 PM [facility] 12/09/2023 1:22 PM [facility] Narrative LABORATORY - 12/09/2023 1:32 PM [facility] Urine Culture not indicated Akash Ramirez MD LAB - URINE ORDERA BLES LABORATORY [facility] Acute Care Lab [address] [facility] Lab (1st floor, no room number) [place] [address], [facility] [phone] * Urine Culture (12/09/2023 12:55 PM [facility]) Culture <10,000 CFU/mL Urogenital trista 12/10/2023 11:19 AM [facility] Urine MID-STREAM URINE SPECIMEN / Unknown Non-blood Collection / Unknown 12/09/2023 12:55 PM [facility] 12/09/2023 1:22 PM [facility] Akash Ramirez MD LAB - MICRO GENERA L ORDERABLES [facility]ORAT[facility] Inf. Diseases Diag. Lab [address] [facility], [address] [place] [address], [place] [phone] * CT Chest Lung Cancer Scrn Low Dose wo (08/05/2023) Anatomical Region Laterality Modality Chest, SUBRAD CT BODY, UMP CT CHEST, RAD CT Computed Tomography Narrative 08/05/2023 [address] [facility], [address] [place] [address] [place] : 1955 Req Phys: Nathalie Tate MD Patient name: JED ALAMO Clinic: [facility] Dept No: [id number] CT CHEST LUNG CANCER SCREENING Exam Date: 08/05/2023 EXAM: LOW DOSE LUNG CANCER SCREENING CT CHEST LOCATION: [facility] [place] DATE: 08/05/2023 INDICATION: Lung cancer screening. History [...] in 12 months. KO FELIZ M.D. Trans: GABRIELLE Date Of Trans: 08/05/2023 3:37:00PM Page 1 of 2 JED ALAMO : 1955 Exam: CT CHEST LUNG CANCER SCREENING Password protected electronic signature by: Date report approved and signed by interpreting physician: 08/05/2023 5:41:00PM Page 2 of 2 Nathalie Tate MD [facility] ORDERABLES * ALBUMIN RANDOM URINE QUANTITATIVE [...] 01/20/2022 11:01 AM CDT Quin Lawler APRN DIRECTOR OF PUBLIC HEALTH LAB - STOOLS ORDE [facility] LABORATORY [facility] Acute [facility] Lab [address] Lab (1st floor, no room number) [place] [address], [facility] [phone] * Hepatitis C antibody (01/20/2022 1:02 AM [...] [facility] SPECIALTY CORE/PROT/ENDO [facility] Specialty Core/Prot/Endo [address], [place], [place] [address], [facility] [phone] * COLONOSCOPY W BIOPSY (05/09/2014) Alton Alonzo MD PROCEDURES from Last 3 Months or Most Recently Relevant to Health Maintenance Advance Directives For more information, please contact: [phone] Documents on File Type Date Recorded Patient Document Improvement Specialist Expl anation Advance Directives and Living Will 10/27/2018 5:32 AM POLST 10/23/2018 Advance Directives and Living Will 06/20/2015 11:45 AM Health Care Directiv e 03/23/2015 * Full Code (Latest Code Status on File) Date Activated Date Inactivated Comments 02/29/2024 1:23 AM All basic and advanced life-sustaining interventions are performed as appropriate Question Answer Comments Code status determined by: Other (please jules t) * Full Code Date Activated Date Inactivated Comments 12/24/2023 11:09 PM 12/28/2023 1:29 PM All basic an d advanced life-sustaining interventions are performed as appropriate Question Answer Comments Code status determined by: Discussion with moreno solorzano/ legal decision maker * Full Code Date [...] Agents on File Name Relationship Healthcare Agent [facility] p Communication Porsche Alamo Spouse Health Care Agent Care Teams Swine Nutritionist Relationship Specialty Start Date End Date Nathalie Tate MD [address] [place] [address] PCP - General Family Medicine 12/09/23 Nathalie Tate MD [address] [place] [address] Assigned PCP 06/28/23
--- OUTSIDE RECORDS SUMMARY | 2024-03-04 03:47 | XMS_ITS | Encounter Summary ---
Author Name Unknown Organization [facility] Address [address] [place] [id number] Care Team Providers Care Molder Punch Name Role Phone Nathalie Tate MD Unavailable [phone] Nathalie Tate MD Primary Care Provider [phone] Reason for Referral * Consultation (Routine: Next available opening) - Pending Review Specialty Diagnoses / Procedures Referred By Contac t Referred To Contact Diagnoses Moderate dementia associated with alcoholism, without behavioral disturbance, psychotic disturbance, mood disturbance, or anxiety (H) Sunny Hayes MD [facility] [address] [place] [id number] Referral ID Status Reason Start Date Expiration Date V isits Requested Visits Authorized [id number] Pending Review 03/02/2024 03/02/2025 1 1 Question Answer Reason for Referral: General Neurology Scheduling Instructions: Call [phone] to schedule follow-up appointment in [address] Hayes. Comments Call [phone] to schedule follow-up appointment in [address] Hayes. Call [phone] to schedule follow-up appointment in [address] Hayes. Reason for Visit * Reason Comments Altered Mental Status * Auth/Cert (Routine) Specialty Diagnoses / Procedures Referred By Contac t Referred To Contact Med Surg Diagnoses Orthostatic hypotension Near syncope Orthostatic hypotension Near syncope [address] [id number] Referral ID Status Reason Start Date Expiration Date Visits Re quested Visits Authorized [id number] 1 1 Encounter Details Date Type Department Care Team (Late st Contact Info) Description 02/28/2024 12:32 PM CDT - Present Hospital Encounter [facility] [address] [id number] Khadar Jones MD [facility] [address] [place], [place] [id number] Susie Robertson MD [facility] [address] [place], [place] [id number] Isaac Cunningham MD [address] [id number] Moderate dementia associated with alcoholism, without behavioral disturbance, psychotic disturbance, mood disturbance, or anxiety (H) (Primary Dx); Orthostatic hypotension; Near syncope Social History Tobacco Use Types Packs/Day Years Used Date Smoking Tobacco: Former Cigarettes 0.5 54.4 S tarted: 10/20/1969 Other Passive Smoke Exposure: Past Smokeless Tobacco: Never Comments:Recently stopped Alcohol Use Standard Drinks/Week Comments No 0 [...] on file Sexual Orientation Not on file documented as of this encounter Last Filed Vital Signs Vital Sign Reading [...] Mass Index 22.36 02/29/2024 1:15 AM CDT documented in this encounter Progress Notes * Patricia Brantley LICSW - 03/03/2024 4:45 PM CDT Care Management Follow Up Length of Stay (days): 4 Expected Discharge Date: 03/04/2024 Concerns to be Addressed: discharge planning will need TCU Patient plan of care discussed at interdisciplinary rounds: Yes Anticipated Discharge Disposition: Transitional Care Anticipated Discharge Services: None Anticipated Discharge DME: None Patient/family educated on Medicare website which has current facility and service quality ratings:yes Education Provided on the Discharge Plan: Yes Patient/Family in Agreement with the Plan: yes Referrals Placed by CM/SW: Post Acute Facilities Private pay costs discussed: private room/amenity fees and transportation costs Additional Information: Patient accepted at [facility] TCU and Dr Manrique will decide tomorrow morning if he is stable for discharge. Discharge plan reviewed with . She plans to transport pt. JAY Sullivan * Mauricio Reyes OTR - 03/03/2024 3:12 PM CDT 03/03/24 1415 Appointment Info Signing Clinician's Name / Credentials (OT) STEFANI Garcia/Maye Living Environment People in Home spouse;child(debbie), adult Current Living Arrangements house Home Accessibility stairs to enter home;stairs within home Number of Stairs, Main Entrance 3 Stair Railings, Main Entrance railings on both sides of stairs Number of Stairs, Within Home, Primary seven Stair Railings, Within Home, Primary railings safe and in good condition Transportation Anticipated family or friend will provide Self-Care Usual Activity Tolerance good Current Activity Tolerance moderate Equipment Currently Used at Home none (owns FWW) Fall history within last six months yes Number of times patient has fallen within last six months 4 Activity/Exercise/Self-Care Comment Per SW note, pt independent with ADL at baseline. Has assist from spouse for IADL. General Information Onset of Illness/Injury or Date of Surgery 02/28/24 Referring Physician Isaac Cunningham MD Patient/Family Therapy Goal Statement (OT) I want to go home Additional Occupational Profile Info/Pertinent History of Current Problem Mr. Jed Alamo is a 68 yo male with history including CVA; HLD; cognitive/memory impairment; CKD; orthostatic hypotension history; and h/o alcohol use d/o in remission; who presents with near syncopal episode and AMS. Head CT showed no acute findings. Head CTA showed short segment moderate to marked narrowing distal left P2; remaining intracranial circulation appeared normal. Neck CTA showed no definite hemodynamically significant narrowing throughout major neck vessels. Existing Precautions/Restrictions fall Limitations/Impairments safety/cognitive Cognitive Status Examination Affect/Mental Status (Cognitive) flat/blunted affect Follows Commands follows one-step commands;75-90% accuracy;repetition of directions required Cognitive Status Comments Oriented to self, time, partly to place. [facility] not [facility]. Baseline has Cognitive/memory impairment per chart. Cognitive Screens/Assessments Cognitive Assessments Completed Other Cognitive Screen/Assessment Cognitive Assessment Test Short blessed test Cognitive Assessment Test Score 7 Cognitive Assessment Test Interpretation 0 - 4 Normal Cognition. 5 - 9 Questionable Impairment (evaluate for early dementing disorder). 10 or more Impairment Consistent with Dementia (evaluate for dementing disorder). Off on time of day by > 1 hr. Unable to state months of year in reverse order. Visual Perception Visual Impairment/Limitations diplopia (Prism glasses) Pain Assessment Patient Currently in Pain No Range of Motion Comprehensive Comment, General Range of Motion B UE WFL Strength Comprehensive (MMT) Comment, General Manual Muscle Testing (MMT) Assessment Deficits noted with functional mobility andADL. Coordination Coordination Comments B UE coordination impaired w/ ADL, dropping items wiht g/h at sink. Bed Mobility Bed Mobility supine-sit;sit-supine;scooting/bridging Scooting/Bridging [place] (Bed Mobility) supervision Supine-Sit [place] (Bed Mobility) supervision Sit-Supine [place] (Bed Mobility) supervision Transfers Transfers sit-stand transfer;bed-chair transfer;toilet transfer;shower transfer Transfer Skill: Bed to Chair/Chair to Bed Bed-Chair [place] (Transfers) contact guard Sit-Stand Transfer Sit-Stand [place] (Transfers) supervision Shower Transfer [place] Level (Shower Transfer) contact guard Toilet Transfer [place] Level (Toilet Transfer) supervision Balance Balance Comments Impaired balance. Requires Ax1 and w/ history of falls. Activities of Daily Living BADL Assessment/Intervention lower body dressing;toileting;grooming Lower Body Dressing Assessment/Training [place] Level (Lower Body Dressing) supervision Grooming Assessment/Training [place] Level (Grooming) supervision Toileting [place] Level (Toileting) supervision Clinical Impression Criteria for Skilled Therapeutic Interventions Met (OT) Yes, treatment indicated OT Diagnosis Decreased ADL independence OT Problem List-Impairments impacting ADL problems related to;activity tolerance impaired;balance;cognition;strength;coordination;vision Assessment of Occupational Performance 3-5 Performance Deficits Identified Performance Deficits functional mobility, bathing, dressing, liesure Planned Therapy Interventions (OT) ADL retraining;IADL retraining;cognition;strengthening;transfer training;progressive activity/exercise Clinical Decision Making Complexity (OT) detailed assessment/moderate complexity OT Total Evaluation Time OT Eval, Moderate Complexity Minutes (88850) 10 OT Goals Therapy Frequency (OT) 5 times/week OT Predicted Duration/Target Date for Goal Attainment 03/10/24 OT Goals Hygiene/Grooming;Upper Body Dressing;Lower Body Dressing;Toilet Transfer/Toileting;OT Goal1 OT: Hygiene/Grooming modified independent OT: Upper Body Dressing Modified independent OT: Lower Body Dressing Modified independent OT: Toilet Transfer/Toileting Modified independent OT: Goal 1 Pt will demo a shower transfer with modified independence. Self-Care/Home Management Self-Care/Home Mgmt/ADL, Compensatory, Meal Prep Minutes (92585) 27 Symptoms Noted During/After Treatment (Meal Preparation/Planning Training) fatigue;dizziness Treatment Detail/Skilled Intervention Pt is supine at encounter and agreeable to OT. STS from EOB and ambulating around bed to chair w/ FWW and close SB-CGA. cued to slow pace w/ walking and reach back to support controlled descent to chair. Provided education to patient on purpose of SBT cog screen as it relates to ADL/IADL safety. Edu on results and specific areas of difficulty. STS w/ FWW, SBA. Ambulating into bathroom w/ SB-CGA and cues for FWW mgmt in space. SBA toilet transfer, cued x1 for grab bar use. Pt tolerates 2 min standing at sink for g/h, requires SBA. Pt dropping items x2 2/2 to tremor. Endorsing dizziness but states it is due to baseline double vision. Seated rest EOB and sypmtoms improve. Edu on shower transfer and instructing pt to complete. Requires CGA and cues for body position in/out of shower. OT Discharge Planning OT Plan Monitor cognition, sequencing ADL, standing ADL, Dress w/ retrieval. OT Discharge Recommendation (DC Rec) Transitional Care Facility;home with assist;home with home care occupational therapy OT Rationale for DC Rec Pt presents below baseline w/ decreased activity tolerance, weakness, and impaired balance. Pt's spouse works during the day which leaves pt home alone. Pt currently requiringAx1 with functional mobility and ADL. Recommend TCU to progress independence and strength prior to return home. The patient is progressing to SBA for most ADL and pending progress, may be able to discharge home. * Penny Farah RN - 03/03/2024 10:59 AM CDT 03/03/24 1035: REEL OPERATOR called, however cancelled after pt woke up spontaneously. Pt was unresponsive to both MD and RN, didn't wake up for gentle sternal rub, VSS, O2 wnl RA. Pt reported he was trying to sleep. when asked if he felt the sternal rub, pt responded yes, when asked if the sternal rub hurt, pt responded yes. Reported he's annoyed because staff keeps waking him up. Neuros were intact. MD at bedside, ordered to continue to monitor. * Margarita Manrique MD - 03/03/2024 9:59 AM CDT [facility] Medicine Progress Note - Hospitalist Service Date of Admission: 02/28/2024 Assessment & Plan Mr. Jed Alamo is a 68 yo male with history including CVA; HLD; cognitive/memory impairment; CKD; orthostatic hypotension history; and h/o alcohol use d/o in remission; who presents with near syncopal episode and AMS. Head CT showed no acute findings. Head CTA showed short segment moderate to m arked narrowing distal left P2; remaining intracranial circulation appeared normal. Neck CTA showedno definite hemodynamically significant narrowing throughout major neck vessels. Near syncope with subsequently AMS, suspect related to orthostatic hypotension with metabolic encephalopathy. Chronic orthostatic hypotension * Initial presentation as above. - Continue ACCOUNT RELATIONSHIP MANAGER midodrine 2.5 mg TID - Consulted neurology on 03/02/24 -PT and OT recommending TCU -Compression stockings and abdominal binder -No concerning rythym abnormalities on Tele -As per neurology no suspicion for Parkinson's disease the patient does not have any nonmotor symptoms and clinical findings of Parkinson's and His orthostatic hypotension may be related to autonomicneuropathy -Started on Aricept -Neurology clinic outpatient follow up SILVANO on CKD.improving Metabolic acidosis, suspect related to above. * Baseline cr around 1.2-1.3 range over the past few years. * Cr 1.53 on admit. -Cr at baseline Metabolic encephalopathy (related to orthostatic hypotension, SILVANO). Resolved Cognitive/memory impairment. Depression/anxiety. * Initial presentation as above. Mental status seems improved at the time of admit. - no acute CVA on MRI and symptoms have resolved - continue delirium precautions given memory/dementia issues - See above management Delirium precautions: Up during the day with lights on Lights off at night, avoid interruptions during the night as much as possible Family visits Encourage wearing glasses Reorientation Avoid opioids, benzodiazepines, anticholinergics. Continue to ensure proper nutrition, fluid and electrolyte balance. Monitor for infections, hypoxia, metabolic derangements, or other causes of delirium. Stroke history. Marked narrowing distal left P2. * H/o right basal ganglia stroke with chronic mild left facial droop. H/o possible aborted stroke or stroke recrudescence 12/2023; presented at that time with left sided weakness and slurred speech and was given TNK; MRI subsequently negative for acute stroke. * Initial presentation as above. Stroke Neuro evaluated imaging and it was felt that distal left [id number] may be chronic and not contributing to acute issues. - Spoke with stroke neurology about P2 stenosis and no further work up other than normal stroke risk factor management - Continue ACCOUNT RELATIONSHIP MANAGER ASA and atorvastatin. H/o alcohol use d/o in remission. - Continue ACCOUNT RELATIONSHIP MANAGER disulfiram. BPH. - Holding ACCOUNT RELATIONSHIP MANAGER tamsulosin for now given orthostatic hypotension. - Monitor for signs of urinary retention. Family -Updated Porsche Diet: Room Service Regular Diet Adult DVT Prophylaxis: Pneumatic Compression Devices Trevino Catheter: Not present Lines: None Cardiac Monitoring: None Code Status: Full Code Clinically Significant Risk Factors # Hypertension: Noted on problem list # Dementia: noted on problem list # Financial/Environmental Concerns: none Disposition Plan Medically Ready for Discharge: 1more day will monitor him overnight due to the unresponsive episodethis morning [facility] Margarita Manrique MD Hospitalist Service [facility] Securely message with [employer] (more info) Text page via [employer] Paging/Directory Interval History Patient seen and examined at bedside this morning patient was sleeping and he was difficult to wakeup even on calling and sternal rub . Rapid response was initially called but patient woke up saying that he was sleeping after he had breakfast and he was upset that his sleep was disturbed. Patient following command and said he feels well. Denies any chest pain or shortness of breath. Discussed with patient's nurse and charge nurse Physical Exam Vital Signs: Temp: 98.2 ??F (36.8 ??C) Temp src: Oral BP: 138/74 Pulse: 60 Resp: 18 SpO2: 98 % O2 Device: None (Room air) Weight: 151 lbs 6.4 oz Physical Exam Cardiovascular: Rate and Rhythm: Normal rate and regular rhythm. Heart sounds: Normal heart sounds. Pulmonary: Effort: Pulmonary effort is normal. No respiratory distress. Abdominal: General: There is no distension. Palpations: Abdomen is soft. Tenderness: There is no abdominal tenderness. Medical Decision Making Data I have personally reviewed the following data over the past 24 hrs: 6.1 \ 12.7 (L) / 195 145 110 (H) 20.0 / 130 (H) 3.8 18 (L) 1.20 (H) \ Imaging results reviewed over the past 24 hrs: No results found for this or any previous visit (from the past 24 hour(s)). * Margarita Manrique MD - 03/02/2024 3:00 PM CDT [facility] Medicine Progress Note - Hospitalist Service Date of Admission: 02/28/2024 Assessment & Plan Mr. Jed Alamo is a 68 yo male with history including CVA; HLD; cognitive/memory impairment; CKD; orthostatic hypotension history; and h/o alcohol use d/o in remission; who presents with near syncopal episode and AMS. Head CT showed no acute findings. Head CTA showed short segment moderate to m arked narrowing distal left P2; remaining intracranial circulation appeared normal. Neck CTA showedno definite hemodynamically significant narrowing throughout major neck vessels. Near syncope with subsequently AMS, suspect related to orthostatic hypotension with metabolic encephalopathy. Chronic orthostatic hypotension * Initial presentation as above. - clinically back to baseline today. Patient Aox4 to situation - Continue ACCOUNT RELATIONSHIP MANAGER midodrine 2.5 mg TID - Consulted neurology -PT and OT recommending TCU -Compression stockings and abdominal binder -No concerning rythym abnormalities on Tele SILVANO on CKD.improving Metabolic acidosis, suspect related to above. * Baseline cr around 1.2-1.3 range over the past few years. * Cr 1.53 on admit. Metabolic encephalopathy (related to orthostatic hypotension, SILVANO). Cognitive/memory impairment. Depression/anxiety. * Initial presentation as above. Mental status seems improved at the time of admit. - no acute CVA on MRI and symptoms have resolved - continue delirium precautions given memory/dementia issues - See above management Stroke history. Marked narrowing distal left P2. * H/o right basal ganglia stroke with chronic mild left facial droop. H/o possible aborted stroke or stroke recrudescence 12/2023; presented at that time with left sided weakness and slurred speech and was given TNK; MRI subsequently negative for acute stroke. * Initial presentation as above. Stroke Neuro evaluated imaging and it was felt that distal left [id number] may be chronic and not contributing to acute issues. - Spoke with stroke neurology about P2 stenosis and no further work up other than normal stroke risk factor management - Continue ACCOUNT RELATIONSHIP MANAGER ASA and atorvastatin. H/o alcohol use d/o in remission. - Continue ACCOUNT RELATIONSHIP MANAGER disulfiram. BPH. - Holding ACCOUNT RELATIONSHIP MANAGER tamsulosin for now given orthostatic hypotension. - Monitor for signs of urinary retention. Diet: Room Service Regular Diet Adult DVT Prophylaxis: Pneumatic Compression Devices Trevino Catheter: Not present Lines: None Cardiac Monitoring: ACTIVE order. Indication: near syncope Code Status: Full Code Clinically Significant Risk Factors # Hypertension: Noted on problem list # Dementia: noted on problem list # Financial/Environmental Concerns: Disposition Plan Medically Ready for Discharge: 1-2 days Family Porsche updated on phone Margairta Manrique MD Hospitalist Service [facility] Securely message with [employer] (more info) Text page via [employer] Paging/Directory Interval History Patient seen and examined at bedside. Denies any chest pain. Continues to feel dizzy Denies any diarrhea or bleeding Not having any fevers {Physical Exam Vital Signs: Temp: 97.9 ??F (36.6 ??C) Temp src: Oral BP: 133/70 Pulse: 93 Resp: 18 SpO2: 98 % O2 Device: None (Room air) Weight: 149 lbs 1.6 oz Physical Exam Cardiovascular: Rate and Rhythm: Normal rate and regular rhythm. Pulmonary: Effort: Pulmonary effort is normal. No respiratory distress. Abdominal: General: There is no distension. Palpations: Abdomen is soft. Tenderness: There is no abdominal tenderness. Medical Decision Making 40 MINUTES SPENT BY ME on the date of service doing chart review, history, exam, documentation & further activities per the note. Data I have personally reviewed the following data over the past 24 hrs: 6.1 \ 12.7 (L) / 195 145 110 (H) 20.0 / 130 (H) 3.8 18 (L) 1.20 (H) \ TSH: N/A T4: N/A A1C: N/A Imaging results reviewed over the past 24 hrs: No results found for this or any previous visit (from the past 24 hour(s)). * Crista Garibay RN - 03/02/2024 10:34 AM CDT [facility] Patient is currently receiving services with [facility]. The patient is currently receiving [facility] services. Patient's casework specialist and home health team have been notified that patient is under inpatient status [facility] Liaison will continue to follow patient during stay. Please provide orders to resume home care at time of discharge if appropriate. * Jeff Bedoya, PT - 03/01/2024 11:20 AM CDT 03/01/24 0954 Appointment Info Signing Clinician's Name / Credentials (PT) Jeff Bedoya DPT Living Environment People in Home spouse Current Living Arrangements house Home Accessibility stairs to enter home;stairs within home Number of Stairs, Main Entrance 3 Stair Railings, Main Entrance railings on both sides of stairs Number of Stairs, Within Home, Primary seven Stair Railings, Within Home, Primary railings safe and in good condition Transportation Anticipated family or friend will provide Living Environment Comments Reports that he lives in a house w/ his spouse. Has 3 MAGED w/ rails on both sides. Lives in a split level home w/ 7 stairs to get to bedroom/bathroom. Self-Care Usual Activity Tolerance good Current Activity Tolerance moderate Equipment Currently Used at Home walker, rolling;cane, straight Fall history within last six months yes Number of times patient has fallen within last six months 4 Activity/Exercise/Self-Care Comment Reports at baseline using a mixutre of FWW, SEC vs no AD. Unclear when he uses each of these. Pt poor historian. Reports able to do all ADLs. General Information Onset of Illness/Injury or Date of Surgery 02/28/24 Referring Physician Isaac Cunningham MD Patient/Family Therapy Goals Statement (PT) Isaac Cunningham MD Pertinent History of Current Problem (include personal factors and/or comorbidities that impact thePOC) Mr. Jed Alamo is a 68 yo male with history including CVA; HLD; cognitive/memory impairment; CKD; orthostatic hypotension history; and h/o alcohol use d/o in remission; who presents with jody r syncopal episode and AMS. Head CT showed no acute findings. Head CTA showed short segment moderate to marked narrowing distal left P2; remaining intracranial circulation appeared normal. Neck CTA showed no definite hemodynamically significant narrowing throughout major neck vessels. Existing Precautions/Restrictions fall Cognition Affect/Mental Status (Cognition) flat/blunted affect Orientation Status (Cognition) oriented x 4 Follows Commands (Cognition) follows one-step commands;50-74% accuracy Pain Assessment Patient Currently in Pain No Integumentary/Edema Integumentary/Edema no deficits were identifed Range of Motion (ROM) ROM Comment WFLs for mobility and transfers no formal testing completed Strength (Manual Muscle Testing) Strength Comments Gross deconditioning noted, not able to complete formal testing at this time Bed Mobility Comment, (Bed Mobility) Sit to supine w/ SBA Transfers Comment, (Transfers) Sit to stand w/ FWW and CGA Gait/Stairs (Locomotion) Comment, (Gait/Stairs) Pt not wanting to attempt at this time Balance Balance Comments Good sitting balance noted Clinical Impression Criteria for Skilled Therapeutic Intervention Yes, treatment indicated PT Diagnosis (PT) Impaired ambulation Influenced by the following impairments Impaired strength, balance and activity tolerance Functional limitations due to impairments Impaired ADLs, IADLs and functional mobility Clinical Presentation (PT Evaluation Complexity) stable Clinical Presentation Rationale Clinical judgment Clinical Decision Making (Complexity) low complexity Planned Therapy Interventions (PT) balance training;bed mobility training;gait training;home exercise program;neuromuscular re-education;patient/family education;ROM (range of motion);stair training;strengthening;transfer training;progressive activity/exercise;risk factor education;home program je hope Risk & Benefits of therapy have been explained evaluation/treatment results reviewed;care plan/treatment goals reviewed;risks/benefits reviewed;current/potential barriers reviewed;participants voiced agreement with care plan;participants included;patient PT Total Evaluation Time PT Eval, Low Complexity Minutes (75726) 10 Physical Therapy Goals PT Frequency Daily PT Predicted Duration/Target Date for Goal Attainment 03/11/24 PT Goals Bed Mobility;Transfers;Gait;Stairs PT: Bed Mobility Independent;Supine to/from sit PT: Transfers Modified independent;Sit to/from stand;Assistive device PT: Gait Modified independent;150 feet;Rolling walker PT: Stairs Supervision/stand-by assist;7 stairs;Rail on right Interventions Interventions Quick Adds Therapeutic Activity Therapeutic Activity Therapeutic Activities: dynamic activities to improve functional performance Minutes (34320) 15 Symptoms Noted During/After Treatment Fatigue;Dizziness Treatment Detail/Skilled Intervention Pt supine in bed at start of session sleeping but easily awoken. Agreeable to PT at that time. RN taking orthostatics this morning that were positive. Endorsing dizziness/lightheadedness while laying supine and increased when sitting EOB. Once seated EOB able to maintain seated position for prolonged period of time. Seated BP taken at 143/87 w/ HR of 84. computer aide coming to room and assisting Pt w/ ordering breakfast. Completing sit to stand x3 w/ FWW and CGA. Taking standing BP at 137/76 w/ HR of 112. On sitting EOB to take a break Pt completing sit to supine w/ SBA. Reports needing a few minutes for rest break. After a few more minutes again notinghe needs a few more minutes of a break. Lastly after attempting to get Pt to sit EOB to ambulate reporting the same thing. Educated on importance of OOB activity and how therapist can not come back later but continues to report he needs a few more minutes. Eyes closed entire time laying down. All needs met w/ call light in place and bed alarm on. PT Discharge Planning PT Plan Trial ambulation, trial stairs, repeat STS, strengthening, balance, monitor BPs. PT Discharge Recommendation (DC Rec) Transitional Care Facility;home with assist;home with home care physical therapy PT Rationale for DC Rec Pt below baseline mobility. Limited by dizziness/orthostatic hypotension and weakness. Pt not agreeable to ambulation on this date. If continues to not be able to safely ambulate and complete stairs may need TCU to improve upon functional mobility and strengthening. If with c ontinued IP PT able to safely complete ambulation and stairs may be able to DC to home w/ HHPT and assist from spouse w/ mobility. PT Brief overview of current status SBA bed mobility, CGA for sit to stand Total Session Time Timed Code Treatment Minutes 15 Total Session Time (sum of timed and untimed services) 25 * Margarita Manrique MD - 03/01/2024 10:13 AM CDT [facility] Medicine Progress Note - Hospitalist Service Date of Admission: 02/28/2024 Assessment & Plan Mr. Jed Alamo is a 68 yo male with history including CVA; HLD; cognitive/memory impairment; CKD; orthostatic hypotension history; and h/o alcohol use d/o in remission; who presents with near syncopal episode and AMS. Head CT showed no acute findings. Head CTA showed short segment moderate to m arked narrowing distal left P2; remaining intracranial circulation appeared normal. Neck CTA showedno definite hemodynamically significant narrowing throughout major neck vessels. Near syncope with subsequently AMS, suspect related to orthostatic hypotension with metabolic encephalopathy. Chronic orthostatic hypotension * Initial presentation as above. - clinically back to baseline today. Patient Aox4 to situation - Continue ACCOUNT RELATIONSHIP MANAGER midodrine 2.5 mg TID - stop IVF and monitor clinically -Discussed with patient's patient has been having tremors and also having cognitive decline. - Consult neurology for possible diagnosis of Parkinson's SILVANO on CKD. Metabolic acidosis, suspect related to above. * Baseline cr around 1.2-1.3 range over the past few years. * Cr 1.53 on admit. - SILVANO resolved with IVF Metabolic encephalopathy (related to orthostatic hypotension, SILVANO). Cognitive/memory impairment. Depression/anxiety. * Initial presentation as above. Mental status seems improved at the time of admit. - no acute CVA on MRI and symptoms have resolved - continue delirium precautions given memory/dementia issues - See above management Stroke history. Marked narrowing distal left P2. * H/o right basal ganglia stroke with chronic mild left facial droop. H/o possible aborted stroke or stroke recrudescence 12/2023; presented at that time with left sided weakness and slurred speech and was given TNK; MRI subsequently negative for acute stroke. * Initial presentation as above. Stroke Neuro evaluated imaging and it was felt that distal left [id number] may be chronic and not contributing to acute issues. - Spoke with stroke neurology about P2 stenosis and no further work up other than normal stroke risk factor management - Continue ACCOUNT RELATIONSHIP MANAGER ASA and atorvastatin. H/o alcohol use d/o in remission. - Continue ACCOUNT RELATIONSHIP MANAGER disulfiram. BPH. - Holding ACCOUNT RELATIONSHIP MANAGER tamsulosin for now given orthostatic hypotension. - Monitor for signs of urinary retention. Diet: Renal Diet (non-dialysis) DVT Prophylaxis: Pneumatic Compression Devices Trevino Catheter: Not present Lines: None Cardiac Monitoring: ACTIVE order. Indication: near syncope Code Status: Full Code Clinically Significant Risk Factors # Hypertension: Noted on problem list # Dementia: noted on problem list # Financial/Environmental Concerns: Disposition Plan Medically Ready for Discharge: 1-2 days Family [employer] rainey Margarita Manrique MD Hospitalist Service [facility] Securely message with [employer] (more info) Text page via [place] Paging/Directory Interval History Patient seen and examined at bedside. Denies any chest pain. Continues to feel dizzy and lightheaded. Denies any diarrhea or abdominal pain. Denies any burning with urination. Not having any fevers {Physical Exam Vital Signs: Temp: 97.9 ??F (36.6 ??C) Temp src: Oral BP: (!) 159/84 Pulse: 73 Resp: 18 SpO2: 98 % O2 Device: None (Room air) Weight: 149 lbs 1.6 oz Medical Decision Making 45 MINUTES SPENT BY ME on the date of service doing chart review, history, exam, documentation & further activities per the note. Data Imaging results reviewed over the past 24 hrs: No results found for this or any previous visit (from the past 24 hour(s)). * Renetta Castillo DO - 02/29/2024 11:06 AM CDT [facility] Medicine Progress Note - Hospitalist Service Date of Admission: 02/28/2024 Assessment & Plan Mr. Jed Alamo is a 68 yo male with history including CVA; HLD; cognitive/memory impairment; CKD; orthostatic hypotension history; and h/o alcohol use d/o in remission; who presents with near syncopal episode and AMS. Head CT showed no acute findings. Head CTA showed short segment moderate to m arked narrowing distal left P2; remaining intracranial circulation appeared normal. Neck CTA showedno definite hemodynamically significant narrowing throughout major neck vessels. Near syncope with subsequently AMS, suspect related to orthostatic hypotension with metabolic encephalopathy. Chronic orthostatic hypotension * Initial presentation as above. - clinically back to baseline today. Patient Aox4 to situation - Continue ACCOUNT RELATIONSHIP MANAGER midodrine 2.5 mg TID - stop IVF and monitor clinically today on tele for reoccurrence of symptoms SILVANO on CKD. Metabolic acidosis, suspect related to above. * Baseline cr around 1.2-1.3 range over the past few years. * Cr 1.53 on admit. - SILVANO resolved with IVF Metabolic encephalopathy (related to orthostatic hypotension, SILVANO). Cognitive/memory impairment. Depression/anxiety. * Initial presentation as above. Mental status seems improved at the time of admit. - no acute CVA on MRI and symptoms have resolved - continue delirium precautions given memory/dementia issues Stroke history. Marked narrowing distal left P2. * H/o right basal ganglia stroke with chronic mild left facial droop. H/o possible aborted stroke or stroke recrudescence 12/2023; presented at that time with left sided weakness and slurred speech and was given TNK; MRI subsequently negative for acute stroke. * Initial presentation as above. Stroke Neuro evaluated imaging and it was felt that distal left [id number] may be chronic and not contributing to acute issues. - Spoke with stroke neurology about P2 stenosis and no further work up other than normal stroke risk factor management - Continue ACCOUNT RELATIONSHIP MANAGER ASA and atorvastatin. H/o alcohol use d/o in remission. - Continue ACCOUNT RELATIONSHIP MANAGER disulfiram. BPH. - Holding ACCOUNT RELATIONSHIP MANAGER tamsulosin for now given orthostatic hypotension. - Monitor for signs of urinary retention. Diet: Renal Diet (non-dialysis) DVT Prophylaxis: Pneumatic Compression Devices Trevino Catheter: Not present Lines: None Cardiac Monitoring: ACTIVE order. Indication: near syncope Code Status: Full Code Clinically Significant Risk Factors Present on Admission # Drug Induced Platelet Defect: home medication list includes an antiplatelet medication # Hypertension: Noted on problem list # Dementia: noted on problem list # Financial/Environmental Concerns: Disposition Plan Medically Ready for Discharge: Anticipated Tomorrow Monitor today for further episodes of hypotension/presyncope. Possible discharge home tomorrow if back to baseline and cleared by therapies Renetta Castillo DO Hospitalist Service [facility] Securely message with [employer] (more info) Text page via [facility] Paging/Directory Interval History Assumed care this morning and patient appears clinically back to baseline. He is oriented to situation and understands he was likely dehydrated. He agrees with monitoring in the hospital today, possible discharge tomorrow Physical Exam Vital Signs: Temp: 97.6 ??F (36.4 ??C) Temp src: Oral BP: 126/67 Pulse: 67 Resp: 18 SpO2: 96 % O2 Device: None (Room air) Weight: 149 lbs 1.6 oz Constitutional: Awake, alert, cooperative, no apparent distress Respiratory: Clear to auscultation bilaterally, no crackles or wheezing Cardiovascular: Regular rate and rhythm, normal S1 and S2, and no murmur noted GI: Normal bowel sounds, soft, non-distended, non-tender Skin/Integumen: No rashes, no cyanosis, no edema Other: CN2-12 grossly intake and following all commands, conversing with me and describing the events that led him to the hospital Medical Decision Making 45 MINUTES SPENT BY ME on the date of service doing chart review, history, exam, documentation & further activities per the note. Data I have personally reviewed the following data over the past 24 hrs: 7.6 \ 11.6 (L) / 183 142 110 (H) 19.8 / 67 (L) 4.2 17 (L) 1.21 (H) \ ALT: N/A AST: N/A AP: N/A TBILI: N/A ALB: N/A TOT PROTEIN: N/A LIPASE: N/A Trop: N/A BNP: N/A Imaging results reviewed over the past 24 hrs: Recent Results (from the past 24 hour(s)) Head CT w/o contrast Narrative EXAM: CT HEAD W/O CONTRAST LOCATION: [facility] DATE: 02/28/2024 INDICATION: Change in mental status confusion COMPARISON: 12/25/2023 TECHNIQUE: Routine CT Head without IV contrast. Multiplanar reformats. Dose reduction techniques were used. FINDINGS: INTRACRANIAL CONTENTS: No intracranial hemorrhage, extraaxial collection, or mass effect. Small chronic infarctions left cerebellum and the right basal ganglia. Moderate presumed chronic small vesselischemic changes. Moderate generalized volume loss. No hydrocephalus. VISUALIZED ORBITS/SINUSES/MASTOIDS: No intraorbital abnormality. No paranasal sinus mucosal disease. No middle ear or mastoid effusion. BONES/SOFT TISSUES: No acute abnormality. Impression IMPRESSION: 1. No acute intracranial process. CTA Head Neck with Contrast Narrative EXAM: CTA HEAD NECK W CONTRAST LOCATION: [facility] DATE: 02/28/2024 INDICATION: Change in mental status, [...] of the great vessels. NONVASCULAR STRUCTURES: Unremarkable. Impression IMPRESSION: HEAD CTA: 1. Short segment moderate to marked narrowing distal left P2. 2. Remaining intracranial circulation appears normal NECK CTA: 1. No definite hemodynamically significant narrowing throughout major neck vessels. MR Brain w/o & w Contrast Narrative EXAM: MR BRAIN W/O and W CONTRAST LOCATION: [facility] DATE: 02/28/2024 INDICATION: Patient with altered mental [...] disease. No middle ear or mastoid effusion. Impression IMPRESSION: 1. No acute infarct, mass, mass effect, or acute hemorrhage. 2. Chronic ischemic changes, as described. 3. Moderate atrophy. * Conchita Guthrie RN - 02/29/2024 1:20 AM CDT Admission/Transfer from: ED 2 RN skin assessment completed. Yes Significant findings include: R ankle scab WOC Nurse Consult Ordered? No 2nd RN CS * Conchita Guthrie RN - 02/29/2024 12:00 AM CDT RECEIVING UNIT ED HANDOFF REVIEW ED Nurse Handoff Report was reviewed by: Conchita Guthrie RN on February 29, 2024 at 12:00 AM documented in this encounter H&P Notes * Isaac Cunningham MD - 02/28/2024 8:35 PM CDT INTERNAL MEDICINE HISTORY AND PHYSICAL [facility]ist [facility] Jed Alamo [MR#: [id number] : 1955 68 year old male] Date of Admission: 02/28/2024 Primary Care Provider: Nathalie Tate Chief Complaint: Near syncope with AMS. History of Present Illness: Mr. Jed Alamo is a 68 yo male with history including CVA; HLD; cognitive/memory impairment; CKD; orthostatic hypotension history; and h/o alcohol use d/o in remission; who presents with near syncopal episode and AMS. Please note the history is obtained from speaking to ER physician and reviewof the electronic medical record, as patient is unable to provide reliable history at this time. Earlier today, while patient was in the shower, it is noted that he stiffened up and was about tofall but fortunately his is able to catch him and sat him down before he fell. Apparently has history of prior TIA which presented similarly. As such, EMS was contacted. EMS noted that the patient had systolic blood pressure in the 50s, blood sugar was 175. It was noted that he was not answering questions appropriately. He was subsequently brought to [facility] for further evaluation. On initially evaluation, pt was afebrile, normotensive. Code stroke was initiated. Labs notable forCBC with WBC normal, hgb 12.1; BMP with bicarb 18, cr 1.53, AG 17; LFT's with ALT 77, o/w unremarkable; troponin 23; alcohol level <0.01. Head CT showed no acute findings. Head CTA showed short segment moderate to marked narrowing distal left P2; remaining intracranial circulation appeared normal. Neck CTA showed no definite hemodynamically significant narrowing throughout major neck vessels. MRI was recommended and is pending. Neurology was notified of the head CTA results and was felt that the abnormalities in the distal left P2 was present prior and not felt to be causing the acute issues. While in the ER, patient continues to be unsteady and is felt to have altered mental status. He wasnoted that he was orthostatic with systolic blood pressures 70s when standing. He was given IV fluids. Overall, given his issues, request for admission was made. Patient presently is lying bed with his eyes closed. Complains of blurry vision. He cannot really tell me what happened earlier. Otherwise he is appropriate and cooperative and follows commands. Denies any chest pain or shortness of breath no fevers but he does feel cold. He says that he has had a decreased appetite. He does state that has recent issues with low blood pressures for the last few months. Past Medical History: 1. Stroke history. H/o right basal ganglia stroke with chronic mild left facial droop. H/o possibleaborted stroke or stroke recrudescence 12/2023; presented at that time with left sided weakness and slurred speech and was given TNK; MRI subsequently negative for acute stroke. 2. HLD. 3. CKD. Baseline cr around 1.2-1.3 range over the past few years. 4. Orthostatic hypotension history. On chronic midodrine. 5. Cognitive/memory impairment. 6. Depression/anxiety. 7. BPH. 8. Eczema. 9. OA. 10. H/o alcohol use d/o. Pt is in remission. 11. H/o prediabetes. Hgba1c 5.2 12/2023.. 12. H/o tobacco use d/o. Past Medical History: Diagnosis Date ALCOHOL ABUSE, IN REMISSION AA weekly Arthritis Chronic kidney disease Eczema ED (erectile dysfunction) HTN (hypertension), benign 2003 Hyperlipidemia 2006 Prediabetes 2009 Above past medical history reviewed and edited and/or added to as necessary. Past Surgical History: Past Surgical History: Procedure Laterality Date HC REMOVE TONSILS/ADENOIDS,<12 Y/O [facility] ARTHROTOMY W/OPEN MENISCUS REPAIR 2008 right -TRIA Allergies: Allergies Allergen Reactions Donepezil Diarrhea Hospitalized for diarrhea/dehydration Sulfa Antibiotics Rash Medications: Prior to Admission Medications Prescriptions Last Dose Informant Patient Reported? Taking? Multiple Vitamins-Iron (TAB-A-CATRACHO/IRON) TABS 02/27/2024 Self No Yes Sig: Take 1 capsule by mouth daily aspirin 81 MG EC tablet 02/27/2024 at am Yes Yes Sig: Take 81 mg by mouth every morning atorvastatin (LIPITOR) 80 MG tablet 02/27/2024 at hs No Yes Sig: Take 1 tablet (80 mg) by mouth every evening cyanocobalamin (CYANOCOBALAMIN) 1000 MCG/ML injection 02/22/2024 Yes Yes Sig: Inject 1 mL into the muscle every 30 days disulfiram (ANTABUSE) 250 MG tablet 02/27/2024 at pm No Yes Sig: Take 1 tablet (250 mg) by mouth daily escitalopram (LEXAPRO) 20 MG tablet 02/27/2024 at pm Yes Yes Sig: Take 60 mg by mouth every evening midodrine (PROAMATINE) 2.5 MG tablet 02/28/2024 at 1500 Yes Yes Sig: Take 1 tablet by mouth 3 times daily phenylephrine (LEATHA-SYNEPHRINE) 1 % nasal spray Unknown Yes Yes Sig: [place] 1 drop into both nostrils daily as needed for congestion tamsulosin (FLOMAX) 0.4 MG capsule 02/27/2024 Yes Yes Sig: Take 0.8 mg by mouth every evening thiamine (B-1) 100 MG tablet 02/27/2024 Spouse/Significant Other Yes Yes Sig: Take 100 mg by mouth every evening vitamin D2 (ERGOCALCIFEROL) 34946 units (1250 mcg) capsule 02/21/2024 No Yes Sig: Take 1 capsule by mouth once a week Patient taking differently: Take 50,000 Units by mouth once a week On Saturdays Facility-Administered Medications: None Social History: Social History Socioeconomic History Marital status: Spouse name: Porsche Number of children: 2 Years of education: Not on file Highest education level: Not on file Occupational History 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 Employer: [employer] Comment: lost job -insubordination Tobacco Use Smoking status: Former Current packs/day: 0.50 Average packs/day: 0.5 packs/day for 54.4 years (27.2 ttl pk-yrs) Types: Cigarettes, Other Start date: 10/20/1969 Passive exposure: Past Smokeless tobacco: Never Tobacco comments: Recently stopped 12/09/23 Substance and Sexual Activity Alcohol use: No Alcohol/week: 0.0 standard drinks of alcohol Comment: 100ml or more daily; recent relapse 08/18/15 Drug use: No Sexual activity: Yes Partners: Female Other Topics Concern Parent/sibling w/ CABG, [place] or angioplasty before 65F 55M? Not Asked Social History Narrative Not on file Social Determinants of Health Financial Resource Strain: Not on file Food Insecurity: Not on file Transportation Needs: Not on file Physical Activity: Not on file Stress: Not on file Social Connections: Not on file Interpersonal Safety: Not on file Housing Stability: Not on file Family History: Reviewed. Family History Problem Relation Age of Onset Hypertension Father Other Cancer Father esophageal Hypertension Mother Cerebrovascular Disease Mother Anxiety Disorder Sister Anxiety Disorder Daughter Psychotic Disorder Sister anxiety Depression/Anxiety Sister C.A.D. No family hx of Diabetes No family hx of Prostate Cancer No family hx of Cancer - colorectal No family hx of Unknown/Adopted No family hx of Depression No family hx of Schizophrenia No family hx of Bipolar Disorder No family hx of Suicide No family hx of Substance Abuse No family hx of Dementia No family hx of [place] Disease No family hx of Parkinsonism No family hx of Autism Spectrum Disorder No family hx of Intellectual Disability No family hx of Mental Illness No family hx of Review of Systems: As noted in the HPI; otherwise 10 point review of systems was negative. Physical Exam: VITALS: Blood pressure 114/74, pulse 76, temperature 97.4 ??F (36.3 ??C), temperature source Oral, resp. rate 16, SpO2 94%. General: Awake, alert, appropriate, follows commands. HEENT: PERRL, no scleral icterus/conjunctival injection. Oropharynx no erythema or exudate. Neck: Heart/Chest: RRR, no m/r/g. Lungs: Diminished in bases. No crackles or wheezes. Abdomen: Soft, nt, nd, +BS. Extremities/Musculoskeletal: No bilateral lower extremity pitting edema. Skin: Neurologic: [place], no gross focal motor/sensory deficits. Labs, Imaging & Other Data: Results for orders placed or performed during the hospital encounter of 02/28/[address] w/o contrast Status: None Narrative EXAM: CT HEAD W/O CONTRAST LOCATION: [facility] DATE: 02/28/2024 INDICATION: Change in mental status confusion COMPARISON: 12/25/2023 TECHNIQUE: Routine CT Head without IV contrast. Multiplanar reformats. Dose reduction techniques were used. FINDINGS: INTRACRANIAL CONTENTS: No intracranial hemorrhage, extraaxial collection, or mass effect. Small chronic infarctions left cerebellum and the right basal ganglia. Moderate presumed chronic small vesselischemic changes. Moderate generalized volume loss. No hydrocephalus. VISUALIZED ORBITS/SINUSES/MASTOIDS: No intraorbital abnormality. No paranasal sinus mucosal disease. No middle ear or mastoid effusion. BONES/SOFT TISSUES: No acute abnormality. Impression IMPRESSION: 1. No acute intracranial process. CTA Head Neck with Contrast Status: None Narrative EXAM: CTA HEAD NECK W CONTRAST LOCATION: [facility] DATE: 02/28/2024 INDICATION: Change in mental status, [...] of the great vessels. NONVASCULAR STRUCTURES: Unremarkable. Impression IMPRESSION: HEAD CTA: 1. Short segment moderate to marked narrowing distal left P2. 2. Remaining intracranial circulation appears normal NECK CTA: 1. No definite hemodynamically significant narrowing throughout major neck vessels. [place] Draw Status: None Narrative The following orders were created for panel order [place] Draw. Procedure Abnormality Status --------- ------ Extra Blue Top Tube[[id number]] Final result Extra Red Top Tube[[id number]] Final result Please view results for these tests on the individual orders. Comprehensive metabolic panel Status: Abnormal Result Value Ref Range Sodium 139 135 - 145 mmol/L Potassium 4.0 3.4 - 5.3 mmol/L Carbon Dioxide (CO2) 18 (L) 22 - 29 mmol/L Anion Gap 17 (H) 7 - 15 mmol/L Urea Nitrogen 20.9 8.0 - 23.0 mg/dL Creatinine 1.53 (H) 0.67 - 1.17 mg/dL GFR Estimate 50 (L) >60 mL/min/1.73m2 Calcium 8.8 8.8 - 10.2 mg/dL Chloride 104 98 - 107 mmol/L Glucose 123 (H) 70 - 99 mg/dL Alkaline Phosphatase 135 40 - 150 U/L AST 21 0 - 45 U/L ALT 77 (H) 0 - 70 U/L Protein Total 6.1 (L) 6.4 - 8.3 g/dL Albumin 3.8 3.5 - 5.2 g/dL Bilirubin Total 0.6 <=1.2 mg/dL Alcohol level blood Status: Normal Result Value Ref Range Alcohol ethyl <0.01 <=0.01 g/dL Troponin T, High Sensitivity Status: Abnormal Result Value Ref Range Troponin T, High Sensitivity 23 (H) <=22 ng/L CBC with platelets and differential Status: Abnormal Result Value Ref Range WBC Count 7.1 4.0 - 11.0 10e3/uL RBC Count 3.99 (L) 4.40 - 5.90 10e6/uL Hemoglobin 12.1 (L) 13.3 - 17.7 g/dL Hematocrit 35.6 (L) 40.0 - 53.0 % MCV 89 78 - 100 fL MCH 30.3 26.5 - 33.0 pg MCHC 34.0 31.5 - 36.5 g/dL RDW 12.8 10.0 - 15.0 % Platelet Count 189 150 - 450 10e3/uL % Neutrophils 72 % % Lymphocytes 19 % % Monocytes 6 % % Eosinophils 1 % % Basophils 1 % % Immature Granulocytes 1 % NRBCs per 100 WBC 0 <1 /100 Absolute Neutrophils 5.2 1.6 - 8.3 10e3/uL Absolute Lymphocytes 1.3 0.8 - 5.3 10e3/uL Absolute Monocytes 0.4 0.0 - 1.3 10e3/uL Absolute Eosinophils 0.1 0.0 - 0.7 10e3/uL Absolute Basophils 0.0 0.0 - 0.2 10e3/uL Absolute Immature Granulocytes 0.1 <=0.4 10e3/uL Absolute NRBCs 0.0 10e3/uL Extra Blue Top Tube Status: None Result Value Ref Range Hold Specimen JIC Extra Red Top Tube Status: None Result Value Ref Range Hold Specimen JIC Ammonia (on ice) Status: Abnormal Result Value Ref Range Ammonia <10 (L) 16 - 60 umol/L CBC with platelets + differential Status: Abnormal Narrative The following orders were created for panel order CBC with platelets + differential. Procedure Abnormality Status --------- ------ CBC with platelets and d...[[id number]] Abnormal Final result Please view results for these tests on the individual orders. ASSESSMENT & PLAN: Mr. Jed Alamo is a 68 yo male with history including CVA; HLD; cognitive/memory impairment; CKD; orthostatic hypotension history; and h/o alcohol use d/o in remission; who presents with near syncopal episode and AMS. On initial evaluation, pt was afebrile, normotensive. Code stroke was initiated. Labs notable for CBC with WBC normal, hgb 12.1; BMP with bicarb 18, cr 1.53, AG 17; LFT's with ALT 77, o/w unremarkable; troponin 23; alcohol level <0.01. Head CT showed no acute findings. Head CTA showed short segment moderate to marked narrowing distal left P2; remaining intracranial circulation appeared normal. Neck CTA showed no definite hemodynamically significant narrowing throughout major neck vessels. Near syncope with subsequently AMS, suspect related to orthostatic hypotension with metabolic encephalopathy. Chronic orthostatic hypotension. * Initial presentation as above. - Order IVF's. - Continue ACCOUNT RELATIONSHIP MANAGER midodrine 2.5 mg TID; consider increasing if still orthostatic despite IVF's. - Monitor orthostatics daily. SILVANO on CKD. Metabolic acidosis, suspect related to above. * Baseline cr around 1.2-1.3 range over the past few years. * Cr 1.53 on admit. - IVF's as above. - Continue to monitor BMP. - Avoid nephrotoxic medications. Metabolic encephalopathy (related to orthostatic hypotension, SILVAON). Cognitive/memory impairment. Depression/anxiety. * Initial presentation as above. Mental status seems improved at the time of admit. - MRI pending, but low suspicion for stroke. - Continue to treat other issues as noted. - Continue ACCOUNT RELATIONSHIP MANAGER escitalopram. - Re-orient as needed. - Maintain normal day/night, sleep/wake cycles. - Minimize sedating medications as able. Stroke history. Marked narrowing distal left P2. * H/o right basal ganglia stroke with chronic mild left facial droop. H/o possible aborted stroke or stroke recrudescence 12/2023; presented at that time with left sided weakness and slurred speech and was given TNK; MRI subsequently negative for acute stroke. * Initial presentation as above. Stroke Neuro evaluated imaging and it was felt that distal left [id number] may be chronic and not contributing to acute issues. - MRI pending, but low suspicion for stroke. - Ask Stroke Neurology to formally advise on distal left P2 marked narrowing, appreciate help. - Continue ACCOUNT RELATIONSHIP MANAGER ASA and atorvastatin. H/o alcohol use d/o in remission. - Continue ACCOUNT RELATIONSHIP MANAGER disulfiram. BPH. - Hold ACCOUNT RELATIONSHIP MANAGER tamsulosin for now given orthostatic hypotension. - Monitor for signs of urinary retention. Prophylaxis. - PCD's, ambulation. CODE STATUS: FULL Isaac Cunningham Jr., MD [phone] (p) Text Page Vocera documented in this encounter Consult Notes * Sunny Hayes MD - 03/02/2024 6:47 PM CDT Images from the original note were not included. Neurology Consult Note [facility] [March 02, 2024] Admission Date: 02/28/2024 Hospital Day: 4 Patient: Jed Alamo : 1955 CC: Chief Complaint Patient presents with Altered Mental Status Consult Request: Referring Provider: Isaac Cunningham MD Primary Care Provider: Nathalie Tate MD HPI: Jed Alamo is a 68 year old yo male admitted for for episode of near syncope and altered mental status on February 28, 2024. Patient has history of CVA; HLD; cognitive/memory impairment; CKD; orthostatic hypotension; and alcohol abuse (in remission for the last 2 years) Patient was in shower when he stiffened up when his caught him. EMS was called that documentedsystolic blood pressure in the 50s with normal blood sugars. Patient was slightly confused and was not answering questions appropriately. He had a head CT and an MRI of the brain which were negative for any acute stroke. Patient also has cognitive impairment. Patient was taking midodrine 2.5 mg 3 times a day at home. Patient has history of intermittent constipation in the past. There is no history of REM behavior disorder. Denies any loss of sense of smell. He denies any significant bradykinesia, resting tremors or frequent falls. A complete review of symptoms was performed including vascular, infectious, cardiovascular, pulmonary, gastrointestinal, endocrinological, hematologic, dermatologic, musculoskeletal, and neurological. All were normal except as above. PAST MEDICAL HISTORY: ALLERGIES: Allergies Allergen Reactions Donepezil Diarrhea Hospitalized for diarrhea/dehydration Sulfa Antibiotics Rash Tobacco: History Smoking Status Former Packs/day: 0.50 Years: 30.00 Types: Cigarettes, Other Start date: 10/20/1969 Smokeless Tobacco Never Alcohol: Social History Substance and Sexual Activity Alcohol use: No Alcohol/week: 0.0 standard drinks of alcohol Comment: 100ml or more daily; recent relapse 08/18/15 MEDICATIONS: CURRENTLY SCHEDULED MEDICATIONS Current Facility-Administered Medications Medication Dose Route Frequency Provider Last Rate Last Admin aspirin EC tablet 81 mg 81 mg Oral QAM Scharber, Renetta E, DO 81 mg at 03/02/24 0839 atorvastatin (LIPITOR) tablet 80 mg 80 mg Oral QPM Scharber, Renetta E, DO 80 mg at 03/01/242023 disulfiram (ANTABUSE) tablet 250 mg 250 mg Oral Daily Scharber, Renetta E, DO 250 mg at 03/01/242024 escitalopram (LEXAPRO) tablet 60 mg 60 mg Oral QPM Scharber, Renetta E, DO 60 mg at 03/01/242024 midodrine (PROAMATINE) tablet 2.5 mg 2.5 mg Oral TID Scharber, Renetta E, DO sodium chloride (PF) 0.9% PF flush 3 mL 3 mL Intracatheter Q8H Isaac Cunningham MD 3 mL at 03/02/24 1717 HOME MEDICATIONS Medications Prior to Admission Medication Sig Dispense Refill Last Dose aspirin 81 MG EC tablet Take 81 mg by mouth every morning 02/27/2024 at am atorvastatin (LIPITOR) 80 MG tablet Take 1 tablet (80 mg) by mouth every evening 90 tablet 0 02/27/2024 at hs cyanocobalamin (CYANOCOBALAMIN) 1000 MCG/ML injection Inject 1 mL into the muscle every 30 days 02/22/2024 disulfiram (ANTABUSE) 250 MG tablet Take 1 tablet (250 mg) by mouth daily 90 tablet 0 02/27/2024 at pm escitalopram (LEXAPRO) 20 MG tablet Take 60 mg by mouth every evening 02/27/2024 at pm midodrine (PROAMATINE) 2.5 MG tablet Take 1 tablet by mouth 3 times daily 02/28/2024 at 1500 Multiple Vitamins-Iron (TAB-A-CATRACHO/IRON) TABS Take 1 capsule by mouth daily 100 tablet 3 02/27/2024 phenylephrine (LEATHA-SYNEPHRINE) 1 % nasal spray [place] 1 drop into both nostrils daily as needed for congestion Unknown tamsulosin (FLOMAX) 0.4 MG capsule Take 0.8 mg by mouth every evening 02/27/2024 thiamine (B-1) 100 MG tablet Take 100 mg by mouth every evening 02/27/2024 vitamin D2 (ERGOCALCIFEROL) 41816 units (1250 mcg) capsule Take 1 capsule by mouth once a week (Patient taking differently: Take 50,000 Units by mouth once a week On Saturdays) 12 capsule 1 02/21/2024 MEDICAL HISTORY Past Medical History: Diagnosis Date ALCOHOL ABUSE, IN REMISSION AA weekly Arthritis Chronic kidney disease Eczema ED (erectile dysfunction) HTN (hypertension), benign 2003 Hyperlipidemia 2005 Prediabetes 2008 SURGICAL HISTORY Past Surgical History: Procedure Laterality Date HC REMOVE TONSILS/ADENOIDS,<12 Y/O [facility] ARTHROTOMY W/OPEN MENISCUS REPAIR 2007 right -TRIA FAMILY HISTORY Family History Problem Relation Age of Onset Hypertension Father Other Cancer Father esophageal Hypertension Mother Cerebrovascular Disease Mother Anxiety Disorder Sister Anxiety Disorder Daughter Psychotic Disorder Sister anxiety Depression/Anxiety Sister C.A.D. No family hx of Diabetes No family hx of Prostate Cancer No family hx of Cancer - colorectal No family hx of Unknown/Adopted No family hx of Depression No family hx of Schizophrenia No family hx of Bipolar Disorder No family hx of Suicide No family hx of Substance Abuse No family hx of Dementia No family hx of [place] Disease No family hx of Parkinsonism No family hx of Autism Spectrum Disorder No family hx of Intellectual Disability No family hx of Mental Illness No family hx of SOCIAL HISTORY Social History Socioeconomic History Marital status: Spouse name: Porsche Number of children: 2 Occupational History 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 Employer: [employer] Comment: lost job -insubordination Tobacco Use Smoking status: Former Current packs/day: 0.50 Average packs/day: 0.5 packs/day for 54.4 years (27.2 ttl pk-yrs) Types: Cigarettes, Other Start date: 10/20/1969 Passive exposure: Past Smokeless tobacco: Never Tobacco comments: Recently stopped 12/09/23 Substance and Sexual Activity Alcohol use: No Alcohol/week: 0.0 standard drinks of alcohol Comment: 100ml or more daily; recent relapse 08/18/15 Drug use: No Sexual activity: Yes Partners: Female Height: 175.3 cm (5' 9) Temp: 98.2 ??F (36.8 ??C) Weight: 67.6 kg (149 lb 1.6 oz) Temp src: Axillary BP: (!) 146/75 Estimated body mass index is 22.02 kg/m?? as calculated from the following: Height as of this encounter: 1.753 m (5' 9). Weight as of this encounter: 67.6 kg (149 lb 1.6 oz). Resp: 18 SpO2: 97 % O2 Device: None (Room air) Blood Pressure: BP Readings from Last 3 Encounters: 03/02/24 (!) 146/75 12/31/23 118/72 12/28/23 126/63 T24??: Temp (24hrs), Av ??F (36.7 ??C), Min:97.4 ??F (36.3 ??C), Max:98.3 ??F (36.8 ??C) GENERAL EXAMINATION: HEENT: PERRLA, EOMI. Neck: Supple, No myofascial tender points. NEUROLOGICAL EXAMINATION Mental Status: Patient is awake, alert, and oriented to hospital but disoriented to time. He could not remember 5 objects after 5 minutes. He could not do serial 7 subtractions. Cranial Nerves: Pupils are equal and reactive to light.Visual cai are full to confrontation. Extraocular movements are intact. There is vertical nystagmus in the lateral gaze bilaterally.No facialsensory deficits. No facial weakness. The tongue is midline. Motor: Muscle tone is normal. There is no pronator drift. There is no muscle atrophy. The strength is 5/5 in upper and lower extremities bilaterally. Deep tendon reflexes are 2+ and symmetric in his biceps, triceps, knees, and ankles. Plantars are flexor. . Sensory: Patient has normal pin prick and light touch sensation in the upper and lower extremities. Coordination: .Finger to nose - normal. . Review of Diagnostics: I personally reviewed and interpreted the following: MR Brain w/o & w Contrast Result Date: 02/28/2024 EXAM: MR BRAIN W/O and W CONTRAST LOCATION: [facility] DATE: 02/28/2024 INDICATION: Patient with altered mental status, confusion COMPARISON: CT head 02/28/2024, MRI head 12/25/2023 CONTRAST: 7mls Gadavist TECHNIQUE: Routine multiplanar multisequence head MRI without and with i ntravenous contrast. FINDINGS: INTRACRANIAL CONTENTS: No acute or [...] No abnormality accounting for technique. SINUSES/MASTOIDS: No paranasalsinus mucosal disease. No middle ear or mastoid effusion. IMPRESSION: 1. No acute infarct, mass, mass effect, or acute hemorrhage. 2. Chronic ischemic changes, as described. 3. Moderate atrophy. CTA Head Neck with Contrast Result Date: 02/28/2024 EXAM: CTA HEAD NECK W CONTRAST LOCATION: [facility] DATE: 02/28/2024 INDICATION: Change in mental status, confusion COMPARISON: None. CONTRAST: 67 mL Isovue-370 TECHNIQUE: Head and neck CT angiogram with IV contrast. Axial helical CT images of the head and neck vessels obtained during the arterial phase of intravenous contrast administration. Axial 2D reconstructed imagesand multiplanar 3D MIP reconstructed images of the head and neck vessels were performed by the technologist. Dose reduction techniques were used. All stenosis measurements made according to NASCET criteria unless otherwise specified. FINDINGS: HEAD CTA: ANTERIOR CIRCULATION: No stenosis/occlusion, aneurysm, or high flow vascular malformation. origin posterior cerebral arteries bilaterally. POSTERIOR CIRCULATION: Short segment moderate to marked narrowing distal left P2. Balanced vertebralarteries supply a normal basilar artery. DURAL VENOUS SINUSES: Expected enhancement of the major dural venous sinuses. NECK CTA: RIGHT CAROTID: Less than 50% narrowing. LEFT CAROTID: Less than 50% narrowing. VERTEBRAL ARTERIES: No focal stenosis or dissection. Balanced vertebral arteries. AORTIC ARCH: Classic aortic arch anatomy with no significant stenosis at the origin of the great vessels. NONV ASCULAR STRUCTURES: Unremarkable. IMPRESSION: HEAD CTA: 1. Short segment moderate to marked narrowing distal left P2. 2. Remaining intracranial circulation appears normal NECK CTA: 1. No definite hemodynamically significant narrowingthroughout major neck vessels. Head CT w/o contrast Result Date: 02/28/2024 EXAM: CT HEAD W/O CONTRAST LOCATION: [facility] DATE: 02/28/2024 INDICATION: Change in mental status confusion COMPARISON: 12/25/2023 TECHNIQUE: Routine CT Head without IV contrast. Multiplanar reformats. Dose reduction techniques were used. FINDINGS: INTRACRANIAL CONTENTS: No intracranial hemorrhage, extraaxial collection, or mass effect. Small chronic infarctions left cerebellum and the right basal ganglia. Moderate presumed chronic small vessel ischemic changes. Moderate generalized volume loss. No hydrocephalus. VISUALIZED ORBITS/SINUSES/MASTOIDS: No intraorbital abnormality. No paranasal sinus mucosal disease. No middle ear or mastoid effusion. BONES/SOFT TISSUES: No acute abnormality. IMPRESSION: 1. No acute intracranial process. Vitamin B12: Lab Results Component Value Date B12 1,058 03/01/2024 B12 398 04/25/2020 Complete Blood Count: Recent Labs Lab Test 03/02/24 1045 03/01/24 1250 02/29/24 0544 02/28/24 1300 12/31/23 0000 WBC 6.1 7.6 7.6 7.1 7.5 RBC 4.11* 3.99* 3.83* 3.99* 4.38* HGB 12.7* 12.1* 11.6* 12.1* 13.8 HCT 36.9* 35.9* 34.9* 35.6* 41.7 PLT 195 190 183 189 244 LYMPH -- -- 27 19 26.4 HgA1c: Lab Results Component Value Date A1C 5.2 12/24/2023 Thyroid Stimulating Hormone: Lab Results Component Value Date TSH 0.46 03/01/2024 TSH 1.00 01/19/2022 TSH 1.64 02/05/2017 Recent Labs Lab Test 03/02/24 1045 03/01/24 1250 12/31/23 0000 12/25/23 0521 12/24/23 1742 WBC 6.1 7.6 < > 9.9 10.5 HGB 12.7* 12.1* < > 12.2* 12.9* MCV 90 90 < > 89 90 PLT 195 190 < > 223 240 INR -- -- -- 1.00 0.95 < > = values in this interval not displayed. Recent Labs Lab Test 03/02/24 1045 03/01/24 1250 NA 145 144 POTASSIUM 3.8 4.0 CHLORIDE 110* 108* CO2 18* 21* BUN 20.0 18.9 CR 1.20* 1.14 ANIONGAP 17* 15 COREY 9.3 8.8 GLC 130* 91 CMP: Recent Labs Lab 02/28/24 1300 PROTTOTAL 6.1* ALBUMIN 3.8 ALKPHOS 135 AST 21 ALT 77* BILITOTAL 0.6 ASSESSMENT Chronic orthostatic hypotension: There was suspicion for Parkinson's disease the patient does not have any nonmotor symptoms and clinical findings of Parkinson's. His orthostatic hypotension may be related to autonomic neuropathy which may be related to history of chronic alcohol abuse versus paraneoplastic syndrome. Patient has moderately advanced cognitive deficits which may be related to his chronic alcohol abuse. RECOMMENDATIONS Check paraneoplastic antibody panel. Start patient on Aricept 5 mg once a day for cognitive deficits. Patient can be followed back in the clinic in 4 weeks. Total consult time 80 minutes with the time spent before, during and after the visit. * Rosalina Hall RN - 03/02/2024 4:06 PM CDTAssociated Order(s): CARE MANAGEMENT / SOCIAL WORK IP CONSULT Care Management Initial Consult General Information Assessment completed with: Spouse or significant other, Type of CM/SW Visit: Offer D/C Planning Primary Care Provider verified and updated as needed: Yes Readmission within the last 30 days: no previous admission in last 30 days Reason for Consult: discharge planning Advance Care Planning: Advance Care Planning Reviewed: present on chart General Information Comments: High readmission risk Communication Assessment Patient's communication style: spoken language (Chilean or Bilingual) Hearing Difficulty or Deaf: no Wear Glasses or Blind: yes Cognitive Cognitive/Neuro/Behavioral: .WDL except, orientation Level of Consciousness: alert Arousal Level: arouses to voice, arouses to touch/gentle shaking, opens eyes spontaneously Orientation: disoriented to, time, situation Mood/Behavior: calm, cooperative Best Language: 0 - No aphasia Speech: clear, spontaneous Living Environment: People in home: spouse Porsche Current living Arrangements: house Able to return to prior arrangements: other (see comments) (will need short term rehab) Family/Social Support: Care provided by: spouse/significant other Provides care for: no one Marital Status: Porsche Description of Support System: Involved Support Assessment: Lacks necessary supervision and assistance, Lacks adequate physical care, Limited social contact and support Current Resources: Patient receiving home care services: Yes Skilled Home Care Services: Group Home Community Resources: Home Care, OP Mental Health Equipment currently used at home: none (has a walker at home that was his spouse's when she broke her foot, but patient does not use any assistive devices) Supplies currently used at home: None Employment/Financial: Employment 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 No Lifestyle & Psychosocial Needs: Social Determinants of Health Food Insecurity: Not on file Depression: Not at risk (08/07/2022) PHQ-2 PHQ-2 Score: 1 Housing Stability: Not on file Tobacco Use: Medium Risk (12/31/2023) Patient History Smoking Tobacco Use: Former Smokeless Tobacco Use: Never Passive Exposure: Past Financial Resource Strain: Not on file Alcohol Use: Not on file Transportation Needs: Not on file Physical Activity: Not on file Interpersonal Safety: Not on file Stress: Not on file Social Connections: Not on file Health Literacy: Not on file Functional Status: Prior to admission patient needed assistance: Dependent ADLs:: Independent Dependent IADLs:: Cleaning, Cooking, Laundry, Shopping, Meal Preparation, Medication Management, Money Management, Transportation Mental Health Status: Mental Health Status: Past Concern (Mental breakdown in 2017) Mental Health Management: Individual Therapy Chemical Dependency Status: Chemical Dependency Status: Past Concern (Sober for two years) Values/Beliefs: Spiritual, Cultural Beliefs, [employer] Practices, Values that affect care: no Additional Information: Met with patient and also had phone conversation with patient's Spouse Porsche. Patient has a history of CVA; HLD; some cognitive/memory impairment; CKD; and orthostatic hypotension. He had some issues with alcohol, but has been sober for two years with one isolated relapse a year ago. Patient has a mental breakdown in 2017. He is now receiving visits from a [facility] home care nurse that provides some mental health therapy. Patient and spouse live in a home in [place]. Porsche does work 30 hours per week out of the home. Patient does not do any cartography professor and does not drive. 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 Discussed current recommendations for a TCU. Porsche was open to this since she would like to see patient get stronger. Porsche noted patient has been dizzy for many years. This was also discussed with patient. He was also in agreement. Their daughter did an nutrition internship at [employer], so this is their first choice. In addition in talking to Porsche, referrals will be sent to [facility]. Awaiting Neuro consult. Depending on this, patient may be ready for discharge as early as tomorrow.Will update SW that will take over discharge planning to a TCU. Rosalina Hall RN Inpatient Care Management [phone] * Charlotte Guerra MD - 02/28/2024 4:38 PM CDT [facility] Stroke Telephone Note I was called by Susie Irwin on 02/28/24 regarding patient Jed Alamo. The patient is a 68 year old man with with h/o prior strokes (including R basal ganglia with mild residual L facial droop), cognitive decline / dementia (on Donepezil), CKD 3a, hyperlipidemia, tobacco use, and alcoholdependence (currently in remission, remains on disulfiram) who had presented with LUE drift, L nasolabial flattening and mild-mod aphasia wherein he was slow to answer and was non-fluent in speech in12/24/23 and received tnk with subsequent MRI being negative for stroke and EEG was negative for seizures then as well with discharge diagnosis at the time being encephalopathy from SILVANO vs fluctuating dementia vs unwitnessed seizure/postictal state. Today he comes in after his noticed that he stiffened up while in the shower and she quickly caught him and sat him down before he fell. On EMS arrival, his blood pressure was in the 50's systolic and blood sugar was 175. Additionally, he was not answering questions appropriately for them. On ED exam, he endorses having some blurry vision and when asked about the episode earlier today, he notes that he felt confused during it and says he was not well. On attempting to get the patient up he was very lightheaded when he stood up and his blood pressure again dropped to 75/30. It improved immediately once he laid down. He has a known history of orthostatic hypotension. Stroke team was called because of altered mental status wherein he seemed to be agitated and pulling at leads and got the year wrong on evaluation a little later. Vitals BP: 127/69 Pulse: 64 Resp: 27 Temp: 97.4 ??F (36.3 ??C) Imaging Findings None done yet Impression Encephalopathy Orthostatic hypotension Dementia Past h/o R BG stroke with residual Left facial droop Recommendations - CT Head and CTA head and Neck - if negative for acute pathology (ischemia,hemorrhage or LVO), we can get a MRI Brain w/wo contrast. If no acute stroke on MRI, no further stroke work up needed. Would defer further encephalopathy management to General Neurology if no stroke. My recommendations are based on the information provided over the phone by Jed Alamo's in-person providers. They are not intended to replace the clinical judgment of his in-person providers. I was not requested to personally see or examine the patient at this time. The Stroke Staff is Dr. Whipple. Charlotte Guerra MD Vascular Neurology Fellow To page me or covering stroke neurology steamboat inspector, click here: AMCOM Choose Stonecutter Apprentice Hand tab at top, then select NEUROLOGY/ALL SITES from middle drop- down box, press Enter, then look for stroke or telestroke for your site. Associated attestation - Krys Whipple MD - 02/28/2024 5:09 PM CDT Attending Physician Addendum Patient was discussed on 02/28/2024 with the fellow on the vascular neurology service, Dr Guerra. Agree with the note below including the assessment, and plan. Krys Whipple MD, Msc, FAHA, FAAN Studio Sales Associate of Neurology [facility] 02/28/2024 5:08 PM To page me or covering stroke neurology steamboat inspector, click here: AMCOM Choose Stonecutter Apprentice Hand tab at top, then search dropdown box for Neurology Adult & press Enter, lookfor Neuro ICU/Stroke documented in this encounter ED Notes * Tracy Ewing RN - 02/28/2024 9:26 PM CDT MRI check list completed with via phone * Caden Lima RN - 02/28/2024 6:57 PM CDT [facility] ED Nurse Handoff Report ED Chief complaint: Altered Mental Status ED Diagnosis: Final diagnoses: Orthostatic hypotension Near syncope Code Status: Hospitalist to discuss with patient Allergies: Allergies Allergen Reactions Donepezil Diarrhea Hospitalized for diarrhea/dehydration Sulfa Antibiotics Rash Patient Story: Pt BIB EMS from home, had an episode on the shower where said pt went stiff and she had to help him sit down. EMS arrived and pt was disoriented and hypotensive (SBP 50s mmHg). Focused Assessment: Pt hypotensive in the 70s with orthostatic Bps, immediately returned to BP WNL when lying flat. Restless at times, sitter at bedside. Treatments and/or interventions provided: Medications sodium chloride (PF) 0.9% PF flush 3 mL (3 mLs Intracatheter $Given 02/28/24 1308) sodium chloride (PF) 0.9% PF flush 3 mL (has no administration in time range) sodium chloride 0.9% BOLUS 1,000 mL (1,000 mLs Intravenous $New Bag 02/28/24 1537) OLANZapine zydis (zyPREXA) ODT tab 5 mg (5 mg Oral $Given 02/28/24 1633) iopamidol (ISOVUE-370) solution 67 mL (67 mLs Intravenous $Given 02/28/24 1748) Saline (90 mLs As instructed $Given 02/28/24 174) CTA Head Neck with Contrast Final Result IMPRESSION: HEAD CTA: 1. Short segment moderate to marked narrowing distal left P2. 2. Remaining intracranial circulation appears normal NECK CTA: 1. No definite hemodynamically significant narrowing throughout major neck vessels. Head CT w/o contrast Final Result IMPRESSION: 1. No acute intracranial process. Patient's response to treatments and/or interventions: Pt received oral zyprexa and is more calm To be done/followed up on inpatient unit: per MD orders Does this patient have any cognitive concerns?: Disoriented to time Activity level - Baseline/Home: Stand with Assist Activity Level - Current: Stand with assist x2 Patient's Preferred language: Chilean Mold Changer Needed?: No Isolation: None Infection: Not Applicable Patient tested for COVID 19 prior to admission: NO Bariatric?: No Vital Signs: Vitals: 02/28/24 1530 02/28/24 1600 02/28/24 1800 02/28/24 1830 BP: 127/69 (!) 143/69 (!) 181/85 (!) 163/76 Pulse: 64 64 69 73 Resp: 27 13 18 Temp: TempSrc: SpO2: 95% 92% 93% Cardiac Rhythm: Was the PSS-3 completed: Yes What interventions are required if any? Family Comments: pt's at bedside For the majority of the shift this patient's behavior was Green. Behavioral interventions performed were none. ED NURSE PHONE NUMBER: [phone] * Caden Lima RN - 02/28/2024 5:28 PM CDT Around 1615, pt's called RN to reports change in pt's status. Pt had suddenly become restless,agitated, pulling at lines and cardiac monitor technician leads and saying bizarre and somewhat incoherent statements like, I need to lay down (even though pt was already laying down). Neuro assessment otherwise remains unchanged from arrival to ED. Pt is disoriented to the time. RN notified Dr. Marmolejo, who came to assess pt at the bedside. CT ordered. Neurology consulted. Pt pulled out IV and RN inserted a new IV for CT. Sitter acquired to stay with pt. * Caden Lima RN - 02/28/2024 12:41 PM CDT Pt BIB EMS from home, had an episode on the shower where said pt went stiff and she had to help him sit down. EMS arrived and pt was disoriented and hypotensive (SBP 50s mmHg). En route, pt received 500 ml NS. BS 175. BP improved to 110s. Hx of TIAs, on ASA. * Mitch Rich RN - 02/28/2024 12:32 PM CDT Bed: ED30 Expected date: Expected time: Means of arrival: Comments: NF 330 68 M AMS low bp weakness eta 1230 * Khadar Jones MD - 02/28/2024 12:32 PM CDT Emergency Department Note History of Present Illness Chief Complaint Altered Mental Status HPI: History limited due to Poor Historian Jed Alamo is a 68 year old male with a history of alcohol abuse, cerebrovascular accident, hypertension, and stage 3 chronic kidney disease who presents with altered mental status. Earlier today, he was in the shower when his noticed that he stiffened up, and she quickly caught him andsat him down before he fell. This was a similar presentation to a prior TIA, so EMS was called and he was brought to the ED. According to EMS, his blood pressure was in the 50's systolic and blood sugar was 175. Additionally, he was not answering questions appropriately for them, but he still had anegative stroke assessment. At bedside, he endorses having some blurry vision. When asked about theepisode earlier today, he notes that he felt confused during it. He denies recent alcohol use or pain. Independent Historian None Review of External Notes A read a note from December 2023 where he had a CVA. Past Medical History Medical History and Problem List Alcohol abuse Arthritis ED HTN HLD Prediabetes Insomnia Generalized anxiety disorder Chemical dependency (H) Pulmonary nodules Fatty liver, alcoholic Recurrent major depressive disorder Cognitive communication deficit CVA (cerebrovascular accident) CKD (chronic kidney disease) stage 3, GFR 30-59 ml/min (H) Migraine Dementia (H) Hematuria, unspecified type TIA Hypovitaminosis D Substance induced mood disorder Medications Asprin Lipitor Antabuse Lexapro Flomax Surgical History T & A R arthrotomy w/ meniscus repair Physical Exam Patient Vitals for the past 24 hrs: BP Temp Temp src Pulse Resp SpO2 02/28/24 1240 109/77 97.4 ??F (36.3 ??C) Oral 64 23 100 % Physical Exam Eye: Pupils are equal, round, and reactive. Extraocular movements intact. ENT: No rhinorrhea. Moist mucus membranes. Normal tongue and tonsil. Cardiac: Regular rate and rhythm. No murmurs, gallops, or rubs. Pulmonary: Clear to auscultation bilaterally. No wheezes, rales, or rhonchi. Abdomen: Positive bowel sounds. Abdomen is soft and non-distended, without focal tenderness. Musculoskeletal: Normal movement of all extremities without evidence for deficit. Skin: Warm and dry without rashes. Neurologic: CN II - XII intact. 5/5 strength in all extremities. Normal sensation throughout. Normal finger to nose and heel to eng. 2+ patellar reflexes. Patient is tremulous, though chiefly complaining of being cold. Psychiatric: Normal affect with appropriate interaction with examiner. Poor historian, unclear as to today's events. Diagnostics Lab Results Labs Ordered and Resulted from Time of ED Arrival to Time of ED Departure COMPREHENSIVE METABOLIC PANEL - Abnormal Result Value Sodium 139 Potassium 4.0 Carbon Dioxide (CO2) 18 (*) Anion Gap 17 (*) Urea Nitrogen 20.9 Creatinine 1.53 (*) GFR Estimate 50 (*) Calcium 8.8 Chloride 104 Glucose 123 (*) Alkaline Phosphatase 135 AST 21 ALT 77 (*) Protein Total 6.1 (*) Albumin 3.8 Bilirubin Total 0.6 TROPONIN T, HIGH SENSITIVITY - Abnormal Troponin T, High Sensitivity 23 (*) CBC WITH PLATELETS AND DIFFERENTIAL - Abnormal WBC Count 7.1 RBC Count 3.99 (*) Hemoglobin 12.1 (*) Hematocrit 35.6 (*) MCV 89 MCH 30.3 MCHC 34.0 RDW 12.8 Platelet Count 189 % Neutrophils 72 % Lymphocytes 19 % Monocytes 6 % Eosinophils 1 % Basophils 1 % Immature Granulocytes 1 NRBCs per 100 WBC 0 Absolute Neutrophils 5.2 Absolute Lymphocytes 1.3 Absolute Monocytes 0.4 Absolute Eosinophils 0.1 Absolute Basophils 0.0 Absolute Immature Granulocytes 0.1 Absolute NRBCs 0.0 ETHYL ALCOHOL LEVEL - Normal Alcohol ethyl <0.01 Imaging No orders to display Results per radiology EKG ECG results from 12/24/23 EKG 12-lead, Tracing only Value Systolic Blood Pressure Diastolic Blood Pressure Ventricular Rate 67 Atrial Rate 67 TN Interval 160 QRS Duration 90 QT 414 QTc 437 P [place] 67 R AXIS 76 T [place] 71 Interpretation ECG Sinus rhythm Normal ECG When compared with ECG of 24-DEC-2023 18:55, No significant change was found Confirmed by MD CAROLINA, YE ([id number]), web content editor Brice Tovar ([id number]) on 12/26/2023 9:11:17 AM Independent Interpretation None ED Course Medications Administered Medications sodium chloride (PF) 0.9% PF flush 3 mL (3 mLs Intracatheter $Given 02/28/24 1308) sodium chloride (PF) 0.9% PF flush 3 mL (has no administration in time range) Procedures None Discussion of Management None Social Determinants of Health adding to complexity of care Stress/Adjustment Disorders and Hx of Substance Abuse ED Course ED Course as of 02/28/24 1532 Sat February 28, 2024 1237 I obtained history and examined the patient as noted above. 1409 I rechecked the patient and updated. Medical Decision Making / Diagnosis [facility] Diagnoses: None MIPS None MDM Jed Alamo is a 68 year old male with a somewhat complicated past medical history including CVA, presenting to us with a hypotensive spell. He has been diagnosed with postural hypotension and is currently taking midodrine to ameliorate this. However, the notes that he continues to have spells, approximately every 3 to 4 days, where he seems to be rather somnolent and spends much of the day in bed and is somewhat altered. He was sleeping later than usual today and so she woke him up.She urged him to take a shower. He was able to get into the shower, but while in the active showering, he called out for help. He was very stiff but was able to be sat down on a chair that is within the shower. With that, he was very cold and shivering but was rather altered. EMS on scene laid him down and found him to be rather hypotensive. He was not terribly alert, however, with warming and transportation, his blood pressure came up and he returned to baseline. He had a normal neuroexam for them and therefore code stroke was not called. On my exam, the patient chiefly is complaining of being cold. He states that he feels not well but does not have any specific complaints. He is able to participate in a full neuroexam which is completely unremarkable. Laboratory investigation was pursued which is normal. EKG is normal as well. With this, we attempted to get the patient up. However, he was very lightheaded when he stood up and his blood pressure again dropped to 75/30. It improved immediately once he laid down. He has a known history of orthostatic hypotension. The exact reason it has been worse today is unclear, though Ifeel this combination of sleeping and later, eating and drinking nothing this morning, and then getting into a shower is the perfect storm of events to cause him to have symptomatic orthostatics. At this point, I recommended admission to the hospital. However, the patient does not want to be admitted unless it is absolutely necessary as this has been an ongoing problem. The is willing tostay for a bit longer. Therefore, we will give the patient a liter normal saline to see if we can fix his issues of positional hypotension. If not, he will require admission to the hospital. To be clear, I do not feel this is related to a TIA, stroke, or any other significant intracranial pathologyand he would not require head imaging at this time. I have signed the patient out to Dr. Marmolejo pending recheck after fluids to see if his orthostatics andweakness improved. Disposition The patient was discharged. ICD-10 Codes: ICD-10-CM 1. Orthostatic hypotension I95.1 2. Near syncope R55 Discharge Medications New Prescriptions No medications on file Scribe Disclosure: I, Joseph Giles, am serving as a scribe at 12:50 PM on 02/28/2024 to document services personally performed by Khadar Jones MD based on my observations and the provider's statements to me. [employer] Khadar Jones MD 02/28/24 1532 * Susie Robertson MD - 02/28/2024 12:32 PM CDT I received signout from my colleague Dr Jones, patient is a 68-year-old with a history of dementia, previous CVA for which she received TNK in December, who presented to the emergency department after near syncope with blood pressures in the 50s systolic, was orthostatic again to the 70s here int emergency department. Plan is to give additional fluids here and repeat orthostatic vitals but does not want to stay. 4:30 PM I went to bedside to assess patient as he had acute change in mental status. Patient is able to tell me his name and respond to questions however scattered throughout this he make statements that do not make sense. Thinks the year is 2013. Spoke with patient's who states that he does occasionally struggle to know what month it is as he often does not leave the house, she states it is unusualfor him not to know what year it is. Appears to be tremulous, is very sure that he has not hadany alcohol use and patient is on disulfiram, she states that she would know if he did drink as shedoes make sure to give him this medication every day. She would be uncomfortable taking him home and state. She states that this is a change from when he came in. I do not think the patient has capacity at this time. We will obtain CT CTA, patient does not have any unilateral deficits at this time that would warrant an acute code stroke to be called. 8:07 PM Spoke to stroke neurology regarding the stenosis that was read on this CTA and not on the previous,I do not feel that this is a very significant change, do recommend obtaining MR. 9:15 PM I spoke with Dr. Huerta the hospitalist service regarding the patient's presentation, has been accepted for admission to the hospital. MD Jaleel Contreras Connie, MD 02/29/24 0051 documented in this encounter Miscellaneous Notes * Plan of Care - Penny Farah RN - 03/03/2024 6:49 PM CDT Goal Outcome Evaluation: Plan of Care Reviewed With: patient Overall Patient Progress: improvingOverall Patient Progress: improving DATE & TIME: 03/03/24 0381-7633 Cognitive Concerns/ Orientation : Pt A/Ox3, disoriented to place. Forgetful. Flat affect. BEHAVIOR & AGGRESSION TOOL COLOR: Green ABNL VS/O2: VSS on RA MOBILITY: Assist x1 with walker and gait belt, fall risk PAIN MANAGMENT: Denies DIET: Renal BOWEL/BLADDER: Incontinent of urine at times ABNL LAB/BG: Cr 1.30 DRAIN/DEVICES: IV SL SKIN: Scattered bruises, redness to coccyx D/C DATE: Patient accepted at [facility] TCU, pending MD clearance for discharge. OTHER IMPORTANT INFO: Neuros intact. Numbness to bilateral lower extremities, baseline per patient.Pt had an episode of unresponsiveness, didn't wake up for both MD and RN, vitals were stable, however pt woke up spontaneously and reported he was annoyed for being woken up frequently and he wanted to sleep more. * Plan of Care - Dee Dee Mclaughlin RN - 03/03/2024 6:46 AM CDT DATE & TIME: 03/02/24 7549-2126 Cognitive Concerns/ Orientation : Pt A/Ox3, disoriented to place. Forgetful. Flat affect. BEHAVIOR & AGGRESSION TOOL COLOR: Green ABNL VS/O2: VSS on RA MOBILITY: Assist x1 with walker and gait belt, fall risk PAIN MANAGMENT: Denies DIET: Renal BOWEL/BLADDER: Incontinent of urine at times ABNL LAB/BG: Cr 1.20 DRAIN/DEVICES: IV SL SKIN: Scattered bruises, redness to coccyx D/C DATE: Discharge pending progress, home with assist vs TCU OTHER IMPORTANT INFO: Neuros intact. Numbness to bilateral lower extremities, baseline per patient. * Plan of Care - Penny Farah RN - 03/02/2024 6:44 PM CDT Goal Outcome Evaluation: Plan of Care Reviewed With: patient, spouse Overall Patient Progress: improvingOverall Patient Progress: improving Summary: Syncopy DATE & TIME: 03/02/246996173-0138 Cognitive Concerns/ Orientation : A&OX2 (disoriented to time and situation) very forgetful, flat affect BEHAVIOR & AGGRESSION TOOL COLOR: Green, calm and cooperative. CIWA SCORE: NA ABNL VS/O2: BP 179/86, 155/78, other VSS, O2 98% RA. Positive for orthostatic BP. MOBILITY: Ax1 GB/W, walked in hallways x3 PAIN MANAGMENT: Denied DIET: Renal diet changed to regular diet, Needs help ordering meals. BOWEL/BLADDER: incontinent of bladder at times, also uses urinal, no BM this shift. ABNL LAB/BG: Hgb 12.7, Cr 1.20, DRAIN/DEVICES: PIV SL TELEMETRY RHYTHM: NSR, discontinued. SKIN: Intact, redness at coccyx TESTS/PROCEDURES: None D/C DAY/GOALS/PLACE: TBD, pending neurology eval. OTHER IMPORTANT INFO: Pt continue to have some light headedness with activity. Neuros intact. Neurology following. PT continue to recommend TCU vs home with assist/HCPT. * Plan of Care - Lisa Higgins RN - 03/02/2024 6:30 AM CDT Goal Outcome Evaluation: Plan of Care Reviewed With: patient Summary: Syncopy DATE & TIME: 03/01/24-03/02/24 0687-9998 Cognitive Concerns/ Orientation : A&OX2 (disoriented to time and situation) very forgetful BEHAVIOR & AGGRESSION TOOL COLOR: Green, calm and cooperative. CIWA SCORE: NA ABNL VS/O2: VSS, O2 98% RA. Positive for orthostatic BP. MOBILITY: Ax1 GB/W PAIN MANAGMENT: Denied DIET: Renal diet. Needs help ordering meals. BOWEL/BLADDER: incontinent of bladder at times, also uses urinal, no BM this shift. ABNL LAB/BG: Hgb 12.1, DRAIN/DEVICES: PIV SL TELEMETRY RHYTHM: NSR SKIN: Intact, redness at coccyx TESTS/PROCEDURES: None D/C DAY/GOALS/PLACE: TBD, pending neurology eval. OTHER IMPORTANT INFO: Pt continue to have some light headedness with activity. Neuros intact. Neurology following. PT recommended TCU vs home with assist/HCPT. * Plan of Care - Penny Farah RN - 03/01/2024 7:11 PM CDT Goal Outcome Evaluation: Plan of Care Reviewed With: patient Summary: Syncopy DATE & TIME: 03/01/24 3956-7320 Cognitive Concerns/ Orientation : A&OX2 (disoriented to time and situation) very forgetful BEHAVIOR & AGGRESSION TOOL COLOR: Green, calm and cooperative. CIWA SCORE: NA ABNL VS/O2: BP elevated, SBP 150s, midodrine held per parameters, other VSS, O2 98% RA. Positive for orthostatic BP. MOBILITY: Assist 1. UW1/walker/gait belt, walked to the bathroom several times and walked around the nursing station x1, declined PT today. PAIN MANAGMENT: Denied DIET: Renal diet. Needs help ordering meals. BOWEL/BLADDER: incontinent of bladder at times, also uses urinal, no BM this shift. ABNL LAB/BG: Hgb 12.1, DRAIN/DEVICES: PIV SL TELEMETRY RHYTHM: NSR SKIN: Intact, redness at coccyx TESTS/PROCEDURES: None D/C DAY/GOALS/PLACE: TBD, pending neurology eval. OTHER IMPORTANT INFO: Pt continue to have some light headedness with activity. Neuros intact. Midodrine held due to high BP. Neurology following. PT recommended TCU vs home with assist/HCPT. * Plan of Care - Gwen Adams RN - 03/01/2024 6:46 AM CDT Goal Outcome Evaluation: Summary: Syncopy DATE & TIME: 02/28 4474-3252 Cognitive Concerns/ Orientation : A&OX2 (disoriented to time and situation) very forgetful and disorganized. BEHAVIOR & AGGRESSION TOOL COLOR: Green, calm and cooperative. CIWA SCORE: NA ABNL VS/O2: VSS @RA. Slight HTN at times. Positive for orthostatic BP. Once daily. MOBILITY: Assist 2. Unsteady with ambulation, Not been to BR this shift. PAIN MANAGMENT: Denied DIET: Renal diet. Needs help ordering meals. BOWEL/BLADDER: Continent and urinal ABNL LAB/BG: Creat 1.21, hgn 11.6 DRAIN/DEVICES: PIV SL TELEMETRY RHYTHM: NS SKIN: Intact, redness at coccyx TESTS/PROCEDURES: None D/C DAY/GOALS/PLACE: Pending possible today. OTHER IMPORTANT INFO: Pt is still dizzy when up, double vision. Neuro intact. Midodrine held due tohigh BP. Has not tried to get out of the bed this shift but does like to sit on the edge of the bedat times. * Plan of Care - Daisha Gonzalez RN - 02/29/2024 10:59 PM CDT Goal Outcome Evaluation: Summary: Syncopy DATE & TIME: 02/28 [phone] Cognitive Concerns/ Orientation : A&OX2 (disoriented to time and situation) very forgetful and disorganized. BEHAVIOR & AGGRESSION TOOL COLOR: Green, calm and cooperative. CIWA SCORE: NA ABNL VS/O2: VSS @RA. Slight HTN at times. Positive for orthostatic BP. Once daily. MOBILITY: Assist 2. Unsteady with ambulation, Not been to BR today. PAIN MANAGMENT: Denied DIET: Renal diet. Good appetite. Needs help ordering meals. BOWEL/BLADDER: Continent and urinal ABNL LAB/BG: Creat 1.21, hgn 11.6 DRAIN/DEVICES: PIV SL TELEMETRY RHYTHM: NS SKIN: Intact, redness at coccyx TESTS/PROCEDURES: None D/C DAY/GOALS/PLACE: Pending possible tomorrow. OTHER IMPORTANT INFO: Pt is still dizzy when up, double vision. Neuro intact. Midodrine held due tohigh BP. Has not tried to get out of the bed this shift but does like to sit on the edge of the bedat times. * Plan of Care - Conchita Guthrie RN - 02/29/2024 6:25 AM CDT Goal Outcome Evaluation: Summary: syncopy stiffened up in shower, caught by Date/Time: 02/29/24 4618-3049 Orientation: A/O w/ encouragement. Disoriented to time and place Vitals/Tele: NSR, VSS RA IV Access/drains: L PIV infusing 75 ml/hr NS Diet: Renal Mobility: A1 GB GI/: continent this shift Wound/Skin: scabbing R back ankle, scatter bruising Consults: Neuro, MRI to be completed Discharge Plan: Pending Other: Head CT/CTA and Neck CTA no significant findings See Flow sheets for assessment * Pharmacy-Admission Medication History - Xavier Lee RP - 02/28/2024 5:49 PM CDT Pharmacist Admission Medication History Admission medication history is complete. The information provided in this note is only as accurateas the sources available at the time of the update. Information Source(s): Patient, Family member, and CareEverywhere/SureScripts via in-person and phone Pertinent Information: Pt seems unsure of his answers, so I called his to complete med list. Changes made to ACCOUNT RELATIONSHIP MANAGER medication list: Added: midodrine Deleted: None Changed: asa to am, phenylephrine to prn Allergies reviewed with patient and updates made in EHR: yes Medication History Completed By: Xavier Lee RPH 02/28/2024 5:49 PM ACCOUNT RELATIONSHIP MANAGER Med List Medication Sig Last Dose aspirin 81 MG EC tablet Take 81 mg by mouth every morning 02/27/2024 at am atorvastatin (LIPITOR) 80 MG tablet Take 1 tablet (80 mg) by mouth every evening 02/27/2024 at hs cyanocobalamin (CYANOCOBALAMIN) 1000 MCG/ML injection Inject 1 mL into the muscle every 30 days 02/22/2024 disulfiram (ANTABUSE) 250 MG tablet Take 1 tablet (250 mg) by mouth daily 02/27/2024 at pm escitalopram (LEXAPRO) 20 MG tablet Take 60 mg by mouth every evening 02/27/2024 at pm midodrine (PROAMATINE) 2.5 MG tablet Take 1 tablet by mouth 3 times daily 02/28/2024 at 1500 Multiple Vitamins-Iron (TAB-A-CATRACHO/IRON) TABS Take 1 capsule by mouth daily 02/27/2024 phenylephrine (LEATHA-SYNEPHRINE) 1 % nasal spray [place] 1 drop into both nostrils daily as needed for congestion Unknown tamsulosin (FLOMAX) 0.4 MG capsule Take 0.8 mg by mouth every evening 02/27/2024 thiamine (B-1) 100 MG tablet Take 100 mg by mouth every evening 02/27/2024 vitamin D2 (ERGOCALCIFEROL) 97378 units (1250 mcg) capsule Take 1 capsule by mouth once a week (Patient taking differently: Take 50,000 Units by mouth once a week On Saturdays) 02/21/2024 documented in this encounter Plan of Treatment Pending Results Name Type Priority Associated Diagnoses Date /Time Paraneoplastic, Autoantibody Evaluation [facility] Routine 03/02/2024 7:01 PM CDT Scheduled Orders Name Type Priority Associated Diagnoses Order Schedule EKG 12 lead EKG STAT One Time for 1 Occurrences starting 02/28/2024 until 02/28/2024 Oxygen: Nasal cannula, Oxygen mask Respiratory Care Routine As Needed until discontinued starting 02/29/2024 Basic metabolic panel Lab Routine AM Draw until discontinued starting 03/01/2024, 2 completed CBC with platelets Lab Routine Daily until discontinued starting 03/01/2024, 3 completed Paraneoplastic, Autoantibody Evaluation [facility] Routine Routine for 1 Occurrences starting 03/02/2024 until 03/02/2024 Scheduled Referrals Name Type Priority Associated Diagnoses Orde r Schedule Adult Neurology Scouring Pads Supervisor Referral Referral Routine: Next available opening Moderate dementia associated with alcoholism, without behavioral disturbance, psychotic disturbance, mood disturbance, or anxiety (H) Expected: 03/02/2024 (Approximate), Expires: 03/02/2025 documented as of this encounter Goals Goal Patient Goal Type Associated Problems Recent Progress Patient-Stated? 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 documented as of this encounter Procedures The patient is currently admitted. The information in this section might not be complete until the patient is discharged. Procedure Name Priority Date/Time Associated Diagnosis Comments CBC WITH PLATELETS Routine 03/03/2024 1: 00 PM CDT BASIC METABOLIC PANEL Routine 03/03/2024 12:59 PM CDT FOLATE Routine 03/02/2024 10:45 AM CDT BASIC METABOLIC PANEL Routine 03/02/2024 10:45 AM CDT CBC WITH PLATELETS Routine 03/02/2024 10 :45 AM CDT TSH WITH FREE T4 REFLEX Add-On 03/01/2024 12:50 PM CDT VITAMIN B12 Add-On 03/01/2024 12:50 PM CDT BASIC METABOLIC PANEL Routine 03/01/2024 12:50 PM CDT CBC WITH PLATELETS Routine 03/01/2024 12 :50 PM CDT CBC WITH PLATELETS AND DIFFERENTIAL Routine 02/29/2024 5:44 AM CDT CBC WITH PLATELETS & DIFFERENTIAL Routine 02/29/2024 5:44 AM CDT BASIC METABOLIC PANEL Routine 02/29/2024 5:44 AM CDT MR BRAIN W/O & W CONTRAST STAT 02/28/2024 10:19 PM CDT CTA HEAD NECK W CONTRAST STAT 02/28/2024 5:[address] HEAD W/O CONTRAST STAT 02/28/2024 5:47 PM CDT AMMONIA STAT 02/28/2024 4:33 PM CDT EXTRA TUBE STAT 02/28/2024 1:00 PM CDT EXTRA RED TOP TUBE STAT 02/28/2024 1: 00 PM CDT EXTRA BLUE TOP TUBE STAT 02/28/2024 1 :00 PM CDT CBC WITH PLATELETS AND DIFFERENTIAL STAT 02/28/2024 1:00 PM CDT TROPONIN T, HIGH SENSITIVITY STAT 02/28/2024 1:00 PM CDT CBC WITH PLATELETS & DIFFERENTIAL STAT 02/28/2024 1:00 PM CDT COMPREHENSIVE METABOLIC PANEL STAT 02/28/2024 1:00 PM CDT ETHYL ALCOHOL LEVEL STAT 02/28/2024 1 :00 PM CDT documented in this encounter Results * (ABNORMAL) CBC with platelets (03/03/2024 1:00 PM CDT) [facility] WBC Count 6.9 4.0 - 11.0 10e3/uL [...] MD LAB - BLOO D ORDERABLES LABORATORY [facility] Lab [address] 1[address] floor, [address] [place] [address], [facility] [phone] * (ABNORMAL) Basic metabolic panel (03/03/2024 12:59 PM CDT) Pathologist [facility] [place] Sodium 141 135 - 145 mmol/L 03/03/2024 [...] MD LAB - BLOO D ORDERABLES LABORATORY [facility] [address] 1[address] floor, [address] [place] [address], [facility] [phone] * Folate (03/02/2024 10:45 AM CDT) [facility] Folic Acid 25.6 4.6 - 34.8 ng/mL 03/02/2024 2:29 PM CDT U LABORATORY Blood STRUCTURE OF RIGHT UPPER LIMB / Unknown Venipuncture / Unknown 03/02/2024 10:45 AM CDT 03/02/2024 11:09 AM CDT Margarita Manrique MD LAB - BLOO D ORDERABLES UU LABORATORY [facility] [address], [address] [place] [address] * (ABNORMAL) CBC with platelets (03/02/2024 10:45 AM CDT) [facility] WBC Count 6.1 4.0 - 11.0 10e3/uL 03/02/2024 11:15 AM CDT LABORATORY RBC Count 4.11(L) 4.40 - 5.90 10e6/uL 03/02/2024 11:15 AM CDT LABORATORY Hemoglobin 12.7(L) 13.3 - 17.7 g/dL 03/02/2024 11:15 AM CDT LABORATORY Hematocrit 36.9(L) 40.0 - 53.0 % 03/02/2024 11:15 AM CDT LABORATORY MCV 90 78 - 100 fL 03/02/2024 11:15 AM CDT LABORATORY MCH 30.9 26.5 - 33.0 pg 03/02/2024 11:15 AM CDT LABORATORY MCHC 34.4 31.5 - 36.5 g/dL 03/02/2024 11:15 AM CDT LABORATORY RDW 13.0 10.0 - 15.0 % 03/02/2024 11:15 AM CDT LABORATORY Platelet Count 195 150 - 450 10e3/uL 03/02/2024 11:15 AM CDT LABORATORY Blood STRUCTURE OF RIGHT UPPER LIMB / Unknown Venipuncture / Unknown 03/02/2024 10:45 AM CDT 03/02/2024 11:09 AM CDT Margarita Manrique MD LAB - BLOO D ORDERABLES LABORATORY [facility] [address] 1[address], [address] [place] [address], [place] [phone] * (ABNORMAL) Basic metabolic panel (03/02/2024 10:45 AM CDT) [facility] Signature Sodium 145 135 - 145 mmol/L 03/02/2024 12:05 PM [facility]OR[facility] Comment:Reference intervals for this test were updated on 07/15/2023 to more accurately reflect our healthy population. There may be differences in the flagging of prior results with similar values performed with this method. Interpretation of those prior results can be made in the context of the updated reference intervals. Potassium 3.8 3.4 - 5.3 mmol/L 03/02/2024 12:05 PM [facility] Chloride 110(H) 98 - 107 mmol/L 03/02/2024 12:05 PM T LABORATORY Carbon Dioxide (CO2) 18(L) 22 - 29 mmol/L 03/02/2024 12:05 PM [facility] Anion Gap 17(H) 7 - 15 mmol/L 03/02/2024 12:05 PM T LABORATORY Urea Nitrogen 20.0 8.0 - 23.0 mg/dL 03/02/2024 12:05 PM T LABORATORY Creatinine 1.20(H) 0.67 - 1.17 mg/dL 03/02/2024 12:05 PM T LABORATORY GFR Estimate 66 >60 mL/min/1. 73m2 03/02/2024 12:05 PM T LABORATORY Calcium 9.3 8.8 - 10.2 mg/dL 03/02/2024 12:05 PM T LABORATORY Glucose 130(H) 70 - 99 mg/dL 03/02/2024 12:05 PM T LABORATORY Blood STRUCTURE OF RIGHT UPPER LIMB / Unknown Venipuncture / Unknown 03/02/2024 10:45 AM CDT 03/02/2024 11:09 AM CDT Margarita Manrique MD LAB - BLOO D ORDERABLES LABORATORY [facility] [address] 1[address], [address] [place] [address], [facility] [phone] * Vitamin B12 (03/01/2024 12:50 PM CDT) Vitamin B12 1,058 232 - 1,245 pg/mL 03/01/2024 9:57 PM CDT U LABORATORY Blood STRUCTURE OF RIGHT UPPER LIMB / Unknown Venipuncture / Unknown 03/01/2024 12:50 PM CDT 03/01/2024 1:07 PM CDT Margarita Manrique MD LAB - BLOO D ORDERABLES LABORATORY [facility] Core Lab [address], [address] [place] [address] * TSH with free T4 reflex (03/01/2024 12:50 PM CDT) Pathologist [facility] [place] TSH 0.46 0.30 - 4.20 uIU/mL 03/01/2024 5:22 PM CDT LABORATORY Blood STRUCTURE OF RIGHT UPPER LIMB / Unknown Venipuncture / Unknown 03/01/2024 12:50 PM CDT 03/01/2024 1:07 PM CDT Margarita Manrique MD LAB - BLOO D ORDERABLES LABORATORY [facility] Care Lab [address], [address] [place] [address], [facility] [phone] * (ABNORMAL) CBC with platelets (03/01/2024 12:50 PM CDT) WBC Count 7.6 4.0 - 11.0 10e3/uL 03/01/2024 1:13 PM CDT LABORATORY RBC Count 3.99(L) 4.40 - 5.90 10e6/uL 03/01/2024 1:13 PM CDT LABORATORY Hemoglobin 12.1(L) 13.3 - 17.7 g/dL 03/01/2024 1:13 PM CDT LABORATORY Hematocrit 35.9(L) 40.0 - 53.0 % 03/01/2024 1:13 PM CDT LABORATORY MCV 90 78 - 100 fL 03/01/2024 1:13 PM CDT LABORATORY MCH 30.3 26.5 - 33.0 pg 03/01/2024 1:13 PM CDT LABORATORY MCHC 33.7 31.5 - 36.5 g/dL 03/01/2024 1:13 PM CDT LABORATORY RDW 13.1 10.0 - 15.0 % 03/01/2024 1:13 PM CDT LABORATORY Platelet Count 190 150 - 450 10e3/uL 03/01/2024 1:13 PM CDT LABORATORY Blood STRUCTURE OF RIGHT UPPER LIMB / Unknown Venipuncture / Unknown 03/01/2024 12:50 PM CDT 03/01/2024 1:07 PM CDT Margarita Manrique MD LAB - BLOO D ORDERABLES LABORATORY [facility] [address], [address] [place] [address], [facility] [phone] * (ABNORMAL) Basic metabolic panel (03/01/2024 12:50 PM CDT) [facility] Signature Sodium 144 135 - 145 mmol/L 03/01/2024 1:37 PM CDT LABORATORY Comment:Reference intervals for this test were updated on 07/15/2023 to more accurately reflect our healthy population. There may be differences in the flagging of prior results with similar values performed with this method. Interpretation of those prior results can be made in the context of the updated reference intervals. Potassium 4.0 3.4 - 5.3 mmol/L 03/01/2024 1:37 PM CDT LABORATORY Chloride 108(H) 98 - 107 mmol/L 03/01/2024 1:37 PM CDT LABORATORY Carbon Dioxide (CO2) 21(L) 22 - 29 mmol/L 03/01/2024 1:37 PM CDT LABORATORY Anion Gap 15 7 - 15 mmol/L 03/01/2024 1:37 PM CDT LABORATORY Urea Nitrogen 18.9 8.0 - 23.0 mg/dL 03/01/2024 1:37 PM CDT LABORATORY Creatinine 1.14 0.67 - 1.17 mg/dL 03/01/2024 1:37 PM CDT LABORATORY GFR Estimate 70 >60 mL/min/1. 73m2 03/01/2024 1:37 PM CDT LABORATORY Calcium 8.8 8.8 - 10.2 mg/dL 03/01/2024 1:37 PM T LABORATORY Glucose 91 70 - 99 mg/dL 03/01/2024 1:37 PM CDT LABORATORY Blood STRUCTURE OF RIGHT UPPER LIMB / Unknown Venipuncture / Unknown 03/01/2024 12:50 PM CDT 03/01/2024 1:07 PM CDT Renetta Castillo DO LAB - BLOOD ORDERAB LES LABORATORY [facility] Lab [address], [address] [place] [address], [facility] [phone] * (ABNORMAL) CBC with platelets and differential (02/29/2024 5:44 AM CDT) WBC Count 7.6 4.0 - 11.0 10e3/uL 02/29/2024 7:00 AM CDT LABORATORY RBC Count 3.83(L) 4.40 - 5.90 10e6/uL 02/29/2024 7:00 AM CDT LABORATORY Hemoglobin 11.6(L) 13.3 - 17.7 g/dL 02/29/2024 7:00 AM CDT LABORATORY Hematocrit 34.9(L) 40.0 - 53.0 % 02/29/2024 7:00 AM CDT LABORATORY MCV 91 78 - 100 fL 02/29[facility]24 [facility] MCH 30.3 26.5 - 33.0 pg 02/29/2024 7:00 AM [facility] MCHC 33.2 31.5 - 36.5 g/dL 02/29/2024 7:00 AM [facility] RDW 13.1 10.0 - 15.0 % 02/29/2024 7:00 AM [facility] Platelet Count 183 150 - 450 10e3/uL 02/29/2024 7:00 AM [facility] % Neutrophils 61 % 02/29/2024 7:00 AM [facility] % Lymphocytes 27 % 02/29/2024 7:00 AM [facility] % Monocytes 8 % 02/29/2024 7:00 AM [facility] % Eosinophils 3 % 02/29/2024 7:00 AM [facility] % Basophils 1 % 02/29/2024 7:00 AM [facility] % Immature Granulocytes 0 % 02/29/2024 7:00 AM [facility] NRBCs per 100 WBC 0 <1 /100 024 7:00 AM [facility] Absolute Neutrophils 4.7 1.6 - 8.3 10e3/uL 02/29/2024 7:00 AM [facility] Absolute Lymphocytes 2.1 0.8 - 5.3 10e3/uL 02/29/2024 7:00 AM [facility] Absolute Monocytes 0.6 0.0 - 1.3 10e3/uL 02/29/2024 7:00 AM [facility] Absolute Eosinophils 0.2 0.0 - 0.7 10e3/uL 02/29/2024 7:00 AM [facility] Absolute Basophils 0.1 0.0 - 0.2 10e3/uL 02/29/2024 7:00 AM [facility] Absolute Immature Granulocytes 0.0 <=0.4 10e3/uL 02/29/2024 7:00 AM [facility] Absolute NRBCs 0.0 10e3/uL 02/29/2024 7:00 AM [facility] Blood STRUCTURE OF RIGHT HAND / Unknown Venipuncture / Unknown 02/29/2024 5:44 AM CDT 02/29/2024 6:51 AM CDT Isaac Cunningham MD LAB - BLOOD ORDER SANTO LABORATORY [facility] Lab [address], [address] [place] [address], [facility] [phone] * (ABNORMAL) Basic metabolic panel (02/29/2024 5:44 AM CDT) [facility] Sodium 142 135 - 145 mmol/L 02/29/2024 7:21 AM [facility] Comment:Reference intervals for this test were updated on 07/15/2023 to more accurately reflect our healthy population. There may be differences in the flagging of prior results with similar values performed with this method. Interpretation of those prior results can be made in the context of the updated reference intervals. Potassium 4.2 3.4 - 5.3 mmol/L 02/29/2024 7:21 AM [facility] Chloride 110(H) 98 - 107 mmol/L 02/29/2024 7:21 AM [facility] Carbon Dioxide (CO2) 17(L) 22 - 29 mmol/L 02/29/2024 7:21 AM [facility] Anion Gap 15 7 - 15 mmol/L 02/29/2024 7:21 AM T LABORATORY Urea Nitrogen 19.8 8.0 - 23.0 mg/dL 02/29/2024 7:21 AM [facility] Creatinine 1.21(H) 0.67 - 1.17 mg/dL 02/29/2024 7:21 AM T LABORATORY GFR Estimate 66 >60 mL/min/1. 73m2 02/29/2024 7:21 AM [facility] Calcium 8.5(L) 8.8 - 10.2 mg/dL 02/29/2024 7:21 AM [facility] Glucose 67(L) 70 - 99 mg/dL 02/29/2024 7:21 AM [facility] Blood STRUCTURE OF RIGHT HAND / Unknown Venipuncture / Unknown 02/29/2024 5:44 AM CDT 02/29/2024 6:51 AM CDT Isaac Cunningham MD LAB - BLOOD ORDER SANTO [facility] Acute Care Lab [address] 1[address], [address] [place] [address], [place] [phone] * MR Brain w/o & w Contrast (02/28/2024 10:19 PM CDT) Anatomical Region Laterality Modality Head, SUBRAD MR NEURO, UMP MR NEURO, RAD MR Magnetic Resonance 02/28/2024 10:1 9 PM CDT Impressions 02/28/2024 10:36 PM CDT IMPRESSION: 1. ??No acute infarct, mass, mass effect, or acute hemorrhage. 2. ??Chronic ischemic changes, as described. 3. ??Moderate atrophy. Narrative 02/28/2024 10:36 PM CDT EXAM: MR BRAIN W/O and W CONTRAST LOCATION: [facility] DATE: 02/28/2024 INDICATION: Patient with altered mental [...] MR BRAIN W/O and W CONTRAST LOCATION: [facility] DATE: 02/28/2024 INDICATION: Patient with altered mental [...] described. 3. Moderate atrophy. Susie Irwin MD [facility] MRI ORDERABLES * CTA Head Neck with Contrast (02/28/2024 5:48 PM CDT) Anatomical Region Laterality Modality Head, SUBRAD CT [...] EXAM: CTA HEAD NECK W CONTRAST LOCATION: [facility] DATE: 02/28/2024 INDICATION: Change in mental status, [...] EXAM: CTA HEAD NECK W CONTRAST LOCATION: [facility] DATE: 02/28/2024 INDICATION: Change in mental status, [...] narrowing throughout majorneck vessels. Susie Irwin MD [facility] CT ORDERABLES * Head CT w/o contrast (02/28/2024 5:47 PM CDT) Anatomical Region Laterality Modality Head, SUBRAD CT NEURO, SUBRA D CT NEURO, UMP CT NEURO, RAD CT Computed Tomography 02/28/2024 5:47 PM CDT Impressions 02/28/2024 6:20 PM CDT IMPRESSION: 1. ??No acute intracranial process. Narrative 02/28/2024 6:20 PM CDT EXAM: CT HEAD W/O CONTRAST LOCATION: [facility] DATE: 02/28/2024 INDICATION: Change in mental status [...] 02/28/2024 EXAM: CT HEAD W/O CONTRAST LOCATION: [facility] DATE: 02/28/2024 INDICATION: Change in mental status [...] No acute intracranial process. Susie Irwin MD [facility] [place] ORDERABLES * (ABNORMAL) Ammonia (on ice) (02/28/2024 4:33 PM CDT) Ammonia <10(L) 16 - 60 umol/L 02/28/2024 5:04 PM CDT LABORATORY Blood BLOOD SPECIMEN / Unknown Venipuncture / Unknown 02/28/2024 4:33 PM CDT 02/28/2024 4:40 PM CDT Susie Irwin MD LAB - BLOOD ORDERABL ES [facility] Lab [address], [address] [place] [address], [place] [phone] * Extra Red Top Tube (02/28/2024 1:00 PM CDT) Hold Specimen [facility] 02/28/2024 2:16 PM CDT LABORATORY Blood BLOOD SPECIMEN / Unknown Venipuncture / Unknown 02/28/2024 1:00 PM CDT 02/28/2024 1:11 PM CDT Khadar Jones MD LAB - BLOOD ORDERA BLES LABORATORY [facility] [address], [address] [place] [address], [place] [phone] * Extra Blue Top Tube (02/28/2024 1:00 PM CDT) Hold Specimen [facility] 02/28/2024 2:16 PM CDT LABORATORY Blood BLOOD SPECIMEN / Unknown Venipuncture / Unknown 02/28/2024 1:00 PM CDT 02/28/2024 1:11 PM CDT Khadar Jones MD LAB - BLOOD ORDERA BLES LABORATORY [facility] [address], [address] [place] [address], [facility] [phone] * (ABNORMAL) CBC with platelets and differential (02/28/2024 1:00 PM CDT) [facility] WBC Count 7.1 4.0 - 11.0 10e3/uL 02/28/2024 1:15 PM CDT LABORATORY RBC Count 3.99(L) 4.40 - 5.90 10e6/uL 02/28/2024 1:15 PM CDT LABORATORY Hemoglobin 12.1(L) 13.3 - 17.7 g/dL 02/28/2024 1:15 PM CDT LABORATORY Hematocrit 35.6(L) 40.0 - 53.0 % 02/28/2024 1:15 PM CDT LABORATORY MCV 89 78 - 100 fL 02/28/2024 1:15 PM CDT LABORATORY MCH 30.3 26.5 - 33.0 pg 02/28/2024 1:15 PM CDT LABORATORY MCHC 34.0 31.5 - 36.5 g/dL 02/28/2024 1:15 PM CDT LABORATORY RDW 12.8 10.0 - 15.0 % 02/28/2024 1:15 PM CDT LABORATORY Platelet Count 189 150 - 450 10e3/uL 02/28/2024 1:15 PM CDT LABORATORY % Neutrophils 72 % 02/28/2024 1:15 PM CDT LABORATORY % Lymphocytes 19 % 02/28/2024 1:15 PM CDT LABORATORY % Monocytes 6 % 02/28/2024 1:15 PM CDT LABORATORY % Eosinophils 1 % 02/28/2024 1:15 PM CDT LABORATORY % Basophils 1 % 02/28/2024 1:15 PM CDT LABORATORY % Immature Granulocytes 1 % 02/28/2024 1:15 PM CDT LABORATORY NRBCs per 100 WBC 0 <1 /100 024 1:15 PM CDT LABORATORY Absolute Neutrophils 5.2 1.6 - 8.3 10e3/uL 02/28/2024 1:15 PM CDT LABORATORY Absolute Lymphocytes 1.3 0.8 - 5.3 10e3/uL 02/28/2024 1:15 PM CDT LABORATORY Absolute Monocytes 0.4 0.0 - 1.3 10e3/uL 02/28/2024 1:15 PM CDT LABORATORY Absolute Eosinophils 0.1 0.0 - 0.7 10e3/uL 02/28/2024 1:15 PM CDT LABORATORY Absolute Basophils 0.0 0.0 - 0.2 10e3/uL 02/28/2024 1:15 PM CDT LABORATORY Absolute Immature Granulocytes 0.1 <=0.4 10e3/uL 02/28/2024 1:15 PM CDT LABORATORY Absolute NRBCs 0.0 10e3/uL 02/28/2024 1:15 PM CDT LABORATORY Blood BLOOD SPECIMEN / Unknown Venipuncture / Unknown 02/28/2024 1:00 PM CDT 02/28/2024 1:11 PM CDT Khadar Jones MD LAB - BLOOD ORDERA BLES LABORATORY [facility] Care Lab [address], [address] [place] [address], [facility] [phone] * (ABNORMAL) Troponin T, High Sensitivity (02/28/2024 1:00 PM CDT) [facility] Troponin T, High Sensitivity 23(H) <=22 ng/L [...] MD LAB - BLOOD ORDERA BLES LABORATORY [facility] [address], [address] [address], [facility] [phone] * Alcohol level blood (02/28/2024 1:00 PM CDT) Alcohol ethyl <0.01 <=0.01 g/dL 02/28/2024 1:39 PM CDT LABORATORY Blood BLOOD SPECIMEN / Unknown Venipuncture / Unknown 02/28/2024 1:00 PM CDT 02/28/2024 1:11 PM CDT Khadar Jones MD LAB - BLOOD ORDERA BLES LABORATORY [facility] [address], [address] [address], [facility] [phone] * (ABNORMAL) Comprehensive metabolic panel (02/28/2024 1:00 PM CDT) Sodium 139 135 - 145 mmol/L 02/28/2024 [...] 22 - 29 mmol/L 02/28/2024 1:39 PM CDT LABORATORY Anion Gap 17(H) 7 - 15 mmol/L 02/28/2024 1:39 PM CDT LABORATORY Urea Nitrogen 20.9 8.0 - 23.0 mg/dL 02/28/2024 1:39 PM [facility] Creatinine 1.53(H) 0.67 - 1.17 mg/dL 02/28/2024 1:39 PM [facility] GFR Estimate 50(L) >60 mL/min/1. 73m2 02/28/2024 1:39 PM CDT LABORATORY Calcium 8.8 8.8 - 10.2 mg/dL 02/28/2024 1:39 PM T LABORATORY Chloride 104 98 - 107 mmol/L 02/28/2024 1:39 PM [facility] Glucose 123(H) 70 - 99 mg/dL 02/28/2024 1:39 PM [facility] Alkaline Phosphatase 135 40 - 150 U/L 02/28/2024 1:39 PM [facility] Comment:Reference intervals for this test were updated on 09/02/2023 to more accurately reflect our healthy population. There may be differences in the flagging of prior results with similar values performed with this method. Interpretation of those prior results can be made in the context of the updated reference intervals. AST 21 0 - 45 U/L 02/28/2024 1:39 PM [facility] Comment:Reference intervals for this test were updated on 03/31/2023 to more accurately reflect our healthy population. There may be differences in the flagging of prior results with similar values performed with this method. Interpretation of those prior results can be made in the context of the updated reference intervals. ALT 77(H) 0 - 70 U/L 02/28/2024 1:39 PM T LABORATORY Comment:Reference [...] 6.4 - 8.3 g/dL 02/28/2024 1:39 PM T LABORATORY Albumin 3.8 3.5 - 5.2 g/dL 02/28/2024 1:39 PM CDT LABORATORY Bilirubin Total 0.6 <=1.2 mg/dL 02/28/2024 1:39 PM [facility] Blood BLOOD SPECIMEN / Unknown Venipuncture / Unknown 02/28/2024 1:00 PM CDT 02/28/2024 1:11 PM CDT Khadar Jones MD LAB - BLOOD ORDERA BLES LABORATORY [facility] Lab [address], [address] [place] [address], [facility] [phone] documented in this encounter Visit Diagnoses Diagnosis Moderate dementia associated with alcoholism, without behavioral disturbance, psychotic disturbance, mood disturbance, or anxiety (H)- Primary Orthostatic hypotension Near syncope Syncope and collapse Orthostatic hypotension Near syncope Syncope and collapse documented in this encounter Administered Medications Active Administered Medications - up to 3 most recent administrations Medication Order MAR Action Action Date Dose Rate Site acetaminophen (TYLENOL) Suppository 650 mg 650 mg, Rectal, EVERY 4 HOURS PRN, mild pain, other, and adjunct with moderate or severe pain or per patient request, Starting on 02/29/24 at 0123, Alternate with ibuprofen if ordered. Maximum acetaminophen dose from all sources = 75 mg/kg/day not to exceed 4 grams/day. acetaminophen (TYLENOL) tablet 650 mg 650 mg, Oral, EVERY 4 HOURS PRN, mild pain, other, and adjunct with moderate or severe pain or per patient request, Starting on 02/29/24 at 0123, Alternate with ibuprofen if ordered. Maximum acetaminophen dose from all sources = 75 mg/kg/day not to exceed 4 grams/day. aspirin EC tablet 81 mg 81 mg, Oral, EVERY MORNING, First dose on Fri03/01/24 at 0900, DO NOT CRUSH. $Given 03/03/2024 8:21 AM CDT 81 mg $Given 03/02/2024 8:39 AM CDT 81 mg $Given 03/01/2024 8:48 AM CDT 81 mg atorvastatin (LIPITOR) tablet 80 mg 80 mg, Oral, EVERY EVENING, First dose on 02/29/24 at 2000 $Given 03/03/2024 9:01 PM CDT 80 mg $Given 03/02/2024 9:08 PM CDT 80 mg $Given 03/01/2024 8:24 PM CDT 80 mg calcium carbonate (TUMS) chewable tablet 1,000 mg 1,000 mg, Oral, 4 TIMES DAILY PRN, heartburn, Starting on 02/29/24 at 0123 disulfiram (ANTABUSE) tablet 250 mg 250 mg, Oral, DAILY, First dose on 02/29/24 at 2000 $Given 03/03/2024 9:01 PM CDT 250 mg $Given 03/02/2024 9:08 PM CDT 250 mg $Given 03/01/2024 8:25 PM CDT 250 mg donepezil (ARICEPT) tablet 5 mg 5 mg, Oral, AT BEDTIME, First dose on 03/02/24 at 2200 $Given 03/03/2024 9:01 PM CDT 5 mg $Given 03/02/2024 9:08 PM CDT 5 mg escitalopram (LEXAPRO) tablet 60 mg 60 mg, Oral, EVERY EVENING, First dose on 02/29/24 at 2000 $Given 03/03/2024 9:00 PM CDT 60 mg $Given 03/02/2024 9:08 PM CDT 60 mg $Given 03/01/2024 8:25 PM CDT 60 mg lidocaine (LMX4) cream Topical, EVERY 1 HOUR PRN, pain, with VAD insertion, Starting on 02/29/24 at 0123, Apply at least 30 minutes prior to VAD insertion in divided doses as needed for size of site for insertion. MAX Dose: 2.5 g (?? of 5 g tube) Do NOT give if patient has a history of allergy to any local anesthetic or any sarthak product. Do NOT use both lidocaine intradermal/subcutaneous injection and the lidocaine cream on the same site. lidocaine 1 % 0.1-1 mL 0.1-1 mL, Other, EVERY 1 HOUR PRN, mild pain with VAD insertion, Starting on 02/29/24 at 0123, MAX dose 1 mL subcutaneous OR intradermal along the side of the vein in divided doses as needed for VAD insertion. Do NOT give if patient has a history of allergy to any local anesthetic or any sarthak product. Do NOT use both lidocaine intradermal/subcutaneous injection and the lidocaine cream on the same site. ondansetron (ZOFRAN ODT) ODT tab 4 mg 4 mg, Oral, EVERY 6 HOURS PRN, nausea, vomiting, Starting on 02/29/24 at 0123, This is Step 1 of nausea and vomiting management. If nausea not resolved in 15 minutes, go to Step 2 prochlorperazine (COMPAZINE). With dry hands, peel back foil backing and gently remove tablet. Do not push oral disintegrating tablet through foil backing. Administer immediately on tongue and oral disintegrating tablet dissolves in seconds, then swallow with saliva. Liquid not required. ondansetron (ZOFRAN) injection 4 mg 4 mg, Intravenous, EVERY 6 HOURS PRN, nausea, vomiting, Administer over 2-5 Minutes, Starting on 02/29/24 at 0123, Give IF patient unable to tolerate oral medication. This is Step 1 of nausea and vomiting management. If nausea not resolved in 15 minutes, go to Step 2 prochlorperazine (COMPAZINE). Irritant. polyethylene glycol (MIRALAX) Packet 17 g 17 g, Oral, 2 TIMES DAILY PRN, constipation, Starting on 02/29/24 at 0123, IF more than 1 constipation PRN medication is ordered, administer step-naranjo as indicated, moving to the next step ONLY if prior step ineffective. Step 1: senna-docusate (SENOKOT-S; PERICOLACE) OR bisacodyl (DULCOLAX) EC tablet Step 2: polyethylene glycol (MIRALAX/GLYCOLAX) Step 3: bisacodyl (DULCOLAX) suppository Step 4: enema 1 Packet = 17 grams. Mix each gram with at least 1/2 ounce (15 mL) of water - 8 ounces for 17 g dose, 4 ounces for 8.5 g dose, 2 ounces for 4 g dose. Follow with the same volume of water. Hold for loose stools unless being administered as part of a bowel prep regimen or bowel clean out. prochlorperazine (COMPAZINE) injection 5 mg 5 mg, Intravenous, EVERY 6 HOURS PRN, nausea, vomiting, Administer over 1-2 Minutes, Starting on 02/29/24 at 0123, IF patient unable to tolerate oral medication. This is Step 2 of nausea and vomiting management. Give if nausea not resolved 15 minutes after giving ondansetron (ZOFRAN). prochlorperazine (COMPAZINE) suppository 12.5 mg 12.5 mg, Rectal, EVERY 12 HOURS PRN, nausea, vomiting, Starting on 02/29/24 at 0123, This is Step 2 of nausea and vomiting management. Give if nausea not resolved 15 minutes after giving ondansetron (ZOFRAN). prochlorperazine (COMPAZINE) tablet 5 mg 5 mg, Oral, EVERY 6 HOURS PRN, vomiting, Starting on 02/29/24 at 0123, This is Step 2 of nausea and vomiting management. Give if nausea not resolved 15 minutes after giving ondansetron (ZOFRAN). senna-docusate (SENOKOT-S/PERICOLACE) 8.6-50 MG per tablet 1 tablet 1 tablet, Oral, 2 TIMES DAILY PRN, constipation, Starting on 02/29/24 at 0123, If no bowel movement in 24 hours, increase to 2 tablets by mouth. IF more than 1 constipation PRN medication is ordered, administer step-naranjo as indicated, moving to the next step ONLY if prior step ineffective. Step 1: senna-docusate (SENOKOT-S; PERICOLACE) OR bisacodyl (DULCOLAX) EC tablet Step 2: polyethylene glycol (MIRALAX/GLYCOLAX) Step 3: bisacodyl (DULCOLAX) suppository Step 4: enema Hold for loose stools. senna-docusate (SENOKOT-S/PERICOLACE) 8.6-50 MG per tablet 2 tablet 2 tablet, Oral, 2 TIMES DAILY PRN, constipation, Starting on 02/29/24 at 0123, IF more than 1 constipation PRN medication is ordered, administer step-naranjo as indicated, moving to the next step ONLY if prior step ineffective. Step 1: senna-docusate (SENOKOT-S; PERICOLACE) OR bisacodyl (DULCOLAX) EC tablet Step 2: polyethylene glycol (MIRALAX/GLYCOLAX) Step 3: bisacodyl (DULCOLAX) suppository Step 4: enema Hold for loose stools. sodium chloride (PF) 0.9% PF flush 3 mL 3 mL, Intracatheter, EVERY 8 HOURS, First dose on 02/29/24 at 0130, to lock peripheral IV dormant line $Given 03/03/2024 4:54 PM CDT 3 mLs $Given 03/03/2024 8:22 AM CDT 3 mLs $Given 03/02/2024 5:17 PM CDT 3 mLs sodium chloride (PF) 0.9% PF flush 3 mL 3 mL, Intracatheter, EVERY 1 MIN PRN, line flush, other, to ensure patency or to lock dormant line, Starting on 02/29/24 at 0123 Inactive Administered Medications - up to 3 most recent administrations Medication Order MAR Action Action Date Dose Rate Site gadobutrol (GADAVIST) injection 7 mL 7 mL, Intravenous, ONCE, On 02/28/24 at 2150, For 1 dose, Supplied by, and administered by MRI. $Given 02/28/2024 10:15 PM CDT 7 mLs iopamidol (ISOVUE-370) solution 67 mL 67 mL, Intravenous, ONCE, On 02/28/24 at 1725, For 1 dose $Given 02/28/2024 5:48 PM CDT 67 mLs OLANZapine zydis (zyPREXA) ODT tab 5 mg 5 mg, Oral, ONCE, On 02/28/24 at 1630, For 1 dose, Combined IM and PO doses may significantly increase the risk of orthostatic hypotension at 30 mg per day or higher. With dry hands, peel back foil backing and gently remove tablet. Do not push oral disintegrating tablet through foil backing. Administer immediately on tongue and oral disintegrating tablet dissolves in seconds, then swallow with saliva. Liquid not required. $Given 02/28/2024 4:33 PM CDT 5 mg Saline As instructed, 90 mL, ONCE, On 02/28/24 at 1725, For 1 dose, This entry is for use by Radiology to intermittently used as a flush in patients receiving a CT scan. $Given 02/28/2024 5:48 PM CDT 90 mLs sodium chloride (PF) 0.9% PF flush 3 mL 3 mL, Intracatheter, EVERY 8 HOURS, First dose on 02/28/24 at 1250, to lock peripheral IV dormant line $Given 02/28/2024 1:08 PM CDT 3 mLs sodium chloride 0.9 % infusion at 75 mL/hr, Intravenous, CONTINUOUS, Starting on [place] 02/29/24 at 0130, Until 02/29/24 at 1326 $New Bag 02/29/2024 2:03 AM CDT 75 mL/hr sodium chloride 0.9% BOLUS 1,000 mL Intravenous, 1,000 mL, ONCE, On 02/28/24 at 1535, For 1 dose $New Bag 02/28/2024 3:37 PM CDT 1,000 mLs documented in this encounter Active and Recently Administered Medications Times are shown in CDT. Scheduled Medication Order 03/02/2024 03/03/2024 03/04/2024 aspirin EC tablet 81 mg 81 mg, Oral, EVERY MORNING, First dose on Fri03/01/24 at 0900, DO NOT CRUSH. 0839 ($Given - Provider: Penny Farah RN) 0821 ($Given - Provider: Penny Farah RN) 0900 (Due) atorvastatin (LIPITOR) tablet 80 mg 80 mg, Oral, EVERY EVENING, First dose on 02/29/24 at 1999 2107 ($Given - Provider: Dee Dee Mclaughlin RN) 2100 ($Given - Provider: Mindy Horton RN) 1999 (Due) disulfiram (ANTABUSE) tablet 250 mg 250 mg, Oral, DAILY, First dose on 02/29/24 at 1999 2107 ($Given - Provider: Dee Dee Mclaughlin RN) 2100 ($Given - Provider: Mindy Horton, PILO) 1999 (Due) donepezil (ARICEPT) tablet 5 mg 5 mg, Oral, AT BEDTIME, First dose on Fri03/02/24 at 2200 2107 ($Given - Provider: Dee Dee Mclaughlin RN) 2100 ($Given - Provider: Mindy Horton, PILO) 2199 (Due) escitalopram (LEXAPRO) tablet 60 mg 60 mg, Oral, EVERY EVENING, First dose on 02/29/24 at 1999 2107 ($Given - Provider: Dee Dee Mclaughlin RN) 2099 ($Given - Provider: Mindy Horton, PILO) 1999 (Due) midodrine (PROAMATINE) tablet 2.5 mg 2.5 mg, Oral, 3 TIMES DAILY (Diuretics and Nitrates), First dose on 02/29/24 at 1400, This medication should NOT be taken after evening meal or less than 4 hours before bedtime. Hold if SBP >130 0749 (Not Given - Provider: Penny Farah RN - Reason: Order parameters not met)1145 (Not Given - Provider: Penny Farah RN - Reason: Order parameters not met)1717 (Not Given - Provider: Penny Farah RN - Reason: Order parameters not met) 0754 (Not Given - Provider: Penny Farah RN - Reason: Order parameters not met)1142 (Not Given - Provider: Penny Farah RN - Reason: Order parameters not met)1707 (Not Given - Provider: Penny Farah RN - Reason: Order parameters not met) 0800 (Due)1200 (Due)1800 (Due) sodium chloride (PF) 0.9% PF flush 3 mL 3 mL, Intracatheter, EVERY 8 HOURS, First dose on 02/29/24 at 0130, to lock peripheral IV dormant line 0038 (Not Given - Provider: Lisa Higgins RN - Reason: Patient sleeping)0839 ($Given - Provider: Penny Farah RN)1717 ($Given - Provider: Penny Farah RN) 0031 (Not Given - Provider: Dee Dee Mclaughlin RN - Reason: Patient sleeping)0822 ($Given - Provider: Penny Farah RN)0908 (Canceled Entry - Provider: Penny Farah RN)1654 ($Given - Provider: Penny Farah RN) 0311 (Not Given - Provider: Mindy Horton RN - Reason: Patient sleeping)0930 (Due)1730 (Due) PRN Medication Order 03/02/2024 03/03/2024 03/04/2024 acetaminophen (TYLENOL) Suppository 650 mg(Linked Group 1) 650 mg, Rectal, EVERY 4 HOURS PRN, mild pain, other, and adjunct with moderate or severe pain or per patient request, Starting on 02/29/24 at 0123, Alternate with ibuprofen if ordered. Maximum acetaminophen dose from all sources = 75 mg/kg/day not to exceed 4 grams/day. acetaminophen (TYLENOL) tablet 650 mg(Linked Group 1) 650 mg, Oral, EVERY 4 HOURS PRN, mild pain, other, and adjunct with moderate or severe pain or per patient request, Starting on 02/29/24 at 0123, Alternate with ibuprofen if ordered. Maximum acetaminophen dose from all sources = 75 mg/kg/day not to exceed 4 grams/day. calcium carbonate (TUMS) chewable tablet 1,000 mg 1,000 mg, Oral, 4 TIMES DAILY PRN, heartburn, Starting on 02/29/24 at 0123 lidocaine (LMX4) cream Topical, EVERY 1 HOUR PRN, pain, with VAD insertion, Starting on 02/29/24 at 0123, Apply at least 30 minutes prior to VAD insertion in divided doses as needed for size of site for insertion. MAX Dose: 2.5 g (?? of 5 g tube) Do NOT give if patient has a history of allergy to any local anesthetic or any sarthak product. Do NOT use both lidocaine intradermal/subcutaneous injection and the lidocaine cream on the same site. lidocaine 1 % 0.1-1 mL 0.1-1 mL, Other, EVERY 1 HOUR PRN, mild pain with VAD insertion, Starting on 02/29/24 at 0123, MAX dose 1 mL subcutaneous OR intradermal along the side of the vein in divided doses as needed for VAD insertion. Do NOT give if patient has a history of allergy to any local anesthetic or any sarthak product. Do NOT use both lidocaine intradermal/subcutaneous injection and the lidocaine cream on the same site. ondansetron (ZOFRAN ODT) ODT tab 4 mg(Linked Group 2) 4 mg, Oral, EVERY 6 HOURS PRN, nausea, vomiting, Starting on 02/29/24 at 0123, This is Step 1 of nausea and vomiting management. If nausea not resolved in 15 minutes, go to Step 2 prochlorperazine (COMPAZINE). With dry hands, peel back foil backing and gently remove tablet. Do not push oral disintegrating tablet through foil backing. Administer immediately on tongue and oral disintegrating tablet dissolves in seconds, then swallow with saliva. Liquid not required. ondansetron (ZOFRAN) injection 4 mg(Linked Group 2) 4 mg, Intravenous, EVERY 6 HOURS PRN, nausea, vomiting, Administer over 2-5 Minutes, Starting on 02/29/24 at 0123, Give IF patient unable to tolerate oral medication. This is Step 1 of nausea and vomiting management. If nausea not resolved in 15 minutes, go to Step 2 prochlorperazine (COMPAZINE). Irritant. polyethylene glycol (MIRALAX) Packet 17 g 17 g, Oral, 2 TIMES DAILY PRN, constipation, Starting on 02/29/24 at 0123, IF more than 1 constipation PRN medication is ordered, administer step-naranjo as indicated, moving to the next step ONLY if prior step ineffective. Step 1: senna-docusate (SENOKOT-S; PERICOLACE) OR bisacodyl (DULCOLAX) EC tablet Step 2: polyethylene glycol (MIRALAX/GLYCOLAX) Step 3: bisacodyl (DULCOLAX) suppository Step 4: enema 1 Packet = 17 grams. Mix each gram with at least 1/2 ounce (15 mL) of water - 8 ounces for 17 g dose, 4 ounces for 8.5 g dose, 2 ounces for 4 g dose. Follow with the same volume of water. Hold for loose stools unless being administered as part of a bowel prep regimen or bowel clean out. prochlorperazine (COMPAZINE) injection 5 mg(Linked Group 3) 5 mg, Intravenous, EVERY 6 HOURS PRN, nausea, vomiting, Administer over 1-2 Minutes, Starting on 02/29/24 at 0123, IF patient unable to tolerate oral medication. This is Step 2 of nausea and vomiting management. Give if nausea not resolved 15 minutes after giving ondansetron (ZOFRAN). prochlorperazine (COMPAZINE) suppository 12.5 mg(Linked Group 3) 12.5 mg, Rectal, EVERY 12 HOURS PRN, nausea, vomiting, Starting on 02/29/24 at 0123, This is Step 2 of nausea and vomiting management. Give if nausea not resolved 15 minutes after giving ondansetron (ZOFRAN). prochlorperazine (COMPAZINE) tablet 5 mg(Linked Group 3) 5 mg, Oral, EVERY 6 HOURS PRN, vomiting, Starting on 02/29/24 at 0123, This is Step 2 of nausea and vomiting management. Give if nausea not resolved 15 minutes after giving ondansetron (ZOFRAN). senna-docusate (SENOKOT-S/PERICOLACE) 8.6-50 MG per tablet 1 tablet(Linked Group 4) 1 tablet, Oral, 2 TIMES DAILY PRN, constipation, Starting on 02/29/24 at 0123, If no bowel movement in 24 hours, increase to 2 tablets by mouth. IF more than 1 constipation PRN medication is ordered, administer step-naranjo as indicated, moving to the next step ONLY if prior step ineffective. Step 1: senna-docusate (SENOKOT-S; PERICOLACE) OR bisacodyl (DULCOLAX) EC tablet Step 2: polyethylene glycol (MIRALAX/GLYCOLAX) Step 3: bisacodyl (DULCOLAX) suppository Step 4: enema Hold for loose stools. senna-docusate (SENOKOT-S/PERICOLACE) 8.6-50 MG per tablet 2 tablet(Linked Group 4) 2 tablet, Oral, 2 TIMES DAILY PRN, constipation, Starting on 02/29/24 at 0123, IF more than 1 constipation PRN medication is ordered, administer step-naranjo as indicated, moving to the next step ONLY if prior step ineffective. Step 1: senna-docusate (SENOKOT-S; PERICOLACE) OR bisacodyl (DULCOLAX) EC tablet Step 2: polyethylene glycol (MIRALAX/GLYCOLAX) Step 3: bisacodyl (DULCOLAX) suppository Step 4: enema Hold for loose stools. sodium chloride (PF) 0.9% PF flush 3 mL 3 mL, Intracatheter, EVERY 1 MIN PRN, line flush, other, to ensure patency or to lock dormant line, Starting on 02/29/24 at 0123 Linked Groups Order Group 1: acetaminophen (TYLENOL) tablet 650 mgJump to med 650 mg, Oral, EVERY 4 HOURS PRN, mild pain, other, and adjunct with moderate or severe pain or per patient request, Starting on 02/29/24 at 0123, Alternate with ibuprofen if ordered. Maximum acetaminophen dose from all sources = 75 mg/kg/day not to exceed 4 grams/day. Or acetaminophen (TYLENOL) Suppository 650 mgJump to med 650 mg, Rectal, EVERY 4 HOURS PRN, mild pain, other, and adjunct with moderate or severe pain or per patient request, Starting on 02/29/24 at 0123, Alternate with ibuprofen if ordered. Maximum acetaminophen dose from all sources = 75 mg/kg/day not to exceed 4 grams/day. Group 2: ondansetron (ZOFRAN ODT) ODT tab 4 mgJump to med 4 mg, Oral, EVERY 6 HOURS PRN, nausea, vomiting, Starting on 02/29/24 at 0123, This is Step 1 of nausea and vomiting management. If nausea not resolved in 15 minutes, go to Step 2 prochlorperazine (COMPAZINE). With dry hands, peel back foil backing and gently remove tablet. Do not push oral disintegrating tablet through foil backing. Administer immediately on tongue and oral disintegrating tablet dissolves in seconds, then swallow with saliva. Liquid not required. Or ondansetron (ZOFRAN) injection 4 mgJump to med 4 mg, Intravenous, EVERY 6 HOURS PRN, nausea, vomiting, Administer over 2-5 Minutes, Starting on 02/29/24 at 0123, Give IF patient unable to tolerate oral medication. This is Step 1 of nausea and vomiting management. If nausea not resolved in 15 minutes, go to Step 2 prochlorperazine (COMPAZINE). Irritant. Group 3: prochlorperazine (COMPAZINE) injection 5 mgJump to med 5 mg, Intravenous, EVERY 6 HOURS PRN, nausea, vomiting, Administer over 1-2 Minutes, Starting on 02/29/24 at 0123, IF patient unable to tolerate oral medication. This is Step 2 of nausea and vomiting management. Give if nausea not resolved 15 minutes after giving ondansetron (ZOFRAN). Or prochlorperazine (COMPAZINE) tablet 5 mgJump to med 5 mg, Oral, EVERY 6 HOURS PRN, vomiting, Starting on 02/29/24 at 0123, This is Step 2 of nausea and vomiting management. Give if nausea not resolved 15 minutes after giving ondansetron (ZOFRAN). Or prochlorperazine (COMPAZINE) suppository 12.5 mgJump to med 12.5 mg, Rectal, EVERY 12 HOURS PRN, nausea, vomiting, Starting on 02/29/24 at 0123, This is Step 2 of nausea and vomiting management. Give if nausea not resolved 15 minutes after giving ondansetron (ZOFRAN). Group 4: senna-docusate (SENOKOT-S/PERICOLACE) 8.6-50 MG per tablet 1 tabletJump to med 1 tablet, Oral, 2 TIMES DAILY PRN, constipation, Starting on 02/29/24 at 0123, If no bowel movement in 24 hours, increase to 2 tablets by mouth. IF more than 1 constipation PRN medication is ordered, administer step-naranjo as indicated, moving to the next step ONLY if prior step ineffective. Step 1: senna-docusate (SENOKOT-S; PERICOLACE) OR bisacodyl (DULCOLAX) EC tablet Step 2: polyethylene glycol (MIRALAX/GLYCOLAX) Step 3: bisacodyl (DULCOLAX) suppository Step 4: enema Hold for loose stools. Or senna-docusate (SENOKOT-S/PERICOLACE) 8.6-50 MG per tablet 2 tabletJump to med 2 tablet, Oral, 2 TIMES DAILY PRN, constipation, Starting on 02/29/24 at 0123, IF more than 1 constipation PRN medication is ordered, administer step-naranjo as indicated, moving to the next step ONLY if prior step ineffective. Step 1: senna-docusate (SENOKOT-S; PERICOLACE) OR bisacodyl (DULCOLAX) EC tablet Step 2: polyethylene glycol (MIRALAX/GLYCOLAX) Step 3: bisacodyl (DULCOLAX) suppository Step 4: enema Hold for loose stools. documented in this encounter Additional Health Concerns Assessment Noted Time PHQ-9 Depression Total Score: 10 022 4:15 PM CDT documented as of this encounter Care Teams Molder Punch Relationship Specialty Start Date End Date Nathalie Tate MD [address] [place] [address] PCP - General Family Medicine 12/09/23 Nathalie Tate MD [address] [place] [address] Assigned PCP 06/28/23 documented as of this encounter
--- OUTSIDE RECORDS SUMMARY | 2024-03-04 03:47 | XMS_ITS | Encounter Summary ---
Author Name Unknown Organization [facility] Address [address] [place] [id number] Care Team Providers Care Entertainment Usher Name Role Phone Nathalie Tate MD Unavailable [phone] Nathalie Tate MD Primary Care Provider [phone] Encounter Details Date Type Department Care Team (Latest Contact Info) Description 02/28/2024 Travel Social History Tobacco Use Types Packs/Day Years [...] on file documented as of this encounter Plan of Treatment Not on file documented as of this encounter Goals Goal Patient Goal Type Associated Problems Recent Progress Patient-Stated? 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 Measure of Success: Caregiver will know if options are available. Supportive Steps to Achieve: CC will send resources via text and caregiver will call. Barriers: recently moved home after rehab. 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 documented as of this encounter Visit Diagnoses Not on filedocumented in this encounter Additional Health Concerns Assessment Noted Time PHQ-9 Depression Total Score: 10 08/07/ 022 4:15 PM CDT documented as of this encounter Care Teams Entertainment Usher Relationship Specialty Start Date End Date Nathalie Tate MD [address] [place] [address] PCP - General Family Medicine 12/09/23 Nathalie Tate MD [address] [place] [address] Assigned PCP 06/28/23 documented as of this encounter
--- OUTSIDE RECORDS SUMMARY | 2024-03-04 03:47 | XMS_ITS | Encounter Summary ---
Author Name Unknown Organization [facility] Address [address] [place] [id number] Care Team Providers Care Nurse Practitioner Physicians Assistant Name Role Phone Nathalie Tate MD Unavailable [phone] Nathalie Tate MD Primary Care Provider [phone] Reason for Visit * Reason Comments Hospital F/U Pt seen in [facility] from 12/23-12/27 for a stroke, doing well today, needing home care orders Encounter Details Date Type Department Care Team (Late st Contact Info) Description 12/31/2023 4:45 PM CDT Office Visit [facility] [address] [place] [address] Nathalie Tate MD [address] [id number] History of CVA (cerebrovascular accident) (Primary Dx); Cerebrovascular accident (CVA), unspecified mechanism (H); Chemical dependency (H); Alcoholism (H) Social History Tobacco Use Types Packs/Day Years [...] Sign Reading Time Taken Comments Blood Pressure 118/72 12/31/2023 4:47 PM CDT Pulse 58 12/31/2023 4:47 PM CDT Temperature 36.6 ??C (97.9 ??F) 12/31/2023 4:47 PM CD T Respiratory Rate - - Oxygen Saturation 97% 12/31/2023 4:47 PM CDT Inhaled Oxygen Concentration - - Weight 67.6 kg (149 lb) 12/31/2023 4:47 PM CDT Height - - Body Mass Index 21.38 12/16/2023 2:52 PM PROJECT CONTROL MANAGER documented in this encounter Progress Notes * Nathalie Tate MD - 12/31/2023 4:45 PM CDT Assessment & Plan Problem List Items Addressed This Visit Nervous and Auditory Stroke (H) Relevant Medications atorvastatin (LIPITOR) 80 MG tablet Other Chemical dependency (H) Alcoholism (H) Relevant Medications disulfiram (ANTABUSE) 250 MG tablet atorvastatin (LIPITOR) 80 MG tablet History of CVA (cerebrovascular accident)--followed by neurology - Primary Relevant Orders VENOUS COLLECTION (Completed) HEMOGRAM PLATELET DIFF (BFP) (Completed) Comprehensive Metobolic Panel (BFP) 1. History of CVA (cerebrovascular accident) - VENOUS COLLECTION - HEMOGRAM PLATELET DIFF (BFP) - Comprehensive Metobolic Panel (BFP) 2. Cerebrovascular accident (CVA), unspecified mechanism (H) He is doing well, reports no residual effects of most recent stroke. He has ongoing neurologic problems due to previous stroke and alcohol use. He will continue with home care, pt and ot. He will also followup with neurology as instructed. Refilled the higher dose as prescribed by the hospital discharge. Lfts checked today. - atorvastatin (LIPITOR) 80 MG tablet; Take 1 tablet (80 mg) by mouth every evening Dispense: 90 tablet; Refill: 0 3. Chemical dependency (H) 4. Alcoholism (H) He is reportedly not using and would like a refill on his antabuse, he has gone down to 1 pill per day and is ok to continue with this. Refilled. - disulfiram (ANTABUSE) 250 MG tablet; Take 1 tablet (250 mg) by mouth daily Dispense: 90 tablet; Refill: 0 - atorvastatin (LIPITOR) 80 MG tablet; Take 1 tablet (80 mg) by mouth every evening Dispense: 90 tablet; Refill: 0 Review of prior external [facility] REQUIRED Post Medication Reconciliation Status: discharge medications reconciled, continue medications without change FUTURE APPOINTMENTS: - Follow-up visit in 1 month. No follow-ups on file. Subjective Nathan is a 68 year old, presenting for the following health issues: Hospital F/U (Pt seen in [facility] from 12/23-12/27 for a stroke, doing well today, needing homecare orders/) HPI Hospital Follow-up Visit: Here with , hospital followup for stroke. He needs labs done He still has dizziness, has had this for years, no changes. Sees neurology regularly. Has an apt coming up in December. Ended up in the hospital a week ago, for TIA, treated with TPA, he got better within a couple of hours. These was some discrepancy as to the MRI and the ct scans. Kept him for 4 days no changes resulting from this time. Alcohol use. Zero. Hasn't used for at least a year. They increased his cholesterol medication. Has always had the antabuse, they changed it from 2 to 1 pill per day. Maybe she thought it could be contributes to the dizziness, this is normally prescribed by--? Dr. Alonzo. Thinks he needs to stayon it forever. Thinks the 1 pill per day is working ok. It's hard to tell unless you drink Home care came today. They told them at least a week until pt/ot can come out. Nimoo from neurologist. He is eating and drinking ok. They will see a new neurologist, Dr Hayes [facility] Facility: [facility] Date of Admission: 12/24/23 Date of Discharge: 12/28/23 Reason(s) for Admission: Stroke Was your hospitalization related to COVID-19? No Problems taking medications regularly: None Medication changes since discharge: Disulfiram was lowered to one a day, Atorvastatin increased to 80mg Problems adhering to non-medication therapy: None Summary of hospitalization: [facility] hospital discharge summary reviewed Diagnostic Tests/Treatments reviewed. Follow up needed: neurology, pt/ot/home care. Other Healthcare Providers Involved in Patient???s Care: Homecare, Physical Therapy, and ot Update since discharge: improved. Plan of care communicated with patient and family Review of Systems Constitutional, HEENT, cardiovascular, pulmonary, gi and gu systems are negative, except as otherwise noted. Objective BP 118/72 (BP Location: Right arm, Patient Position: Sitting, Cuff Size: Adult Large) Pulse 58 Temp 97.9 ??F (36.6 ??C) (Temporal) Wt 67.6 kg (149 lb) SpO2 97% BMI 21.38 kg/m?? Body mass index is 21.38 kg/m??. Physical Exam GENERAL: alert and no distress RESP: lungs clear to auscultation - no rales, rhonchi or wheezes CV: regular rate and rhythm, normal S1 S2, no S3 or S4, no murmur, click or rub, no peripheral edema MS: no gross musculoskeletal defects noted, no edema NEURO: Normal strength and tone, mentation intact and speech normal PSYCH: mentation appears normal, affect normal/bright Results for orders placed or performed in visit on 12/31/23 HEMOGRAM PLATELET DIFF (BFP) Status: Abnormal Result Value Ref Range WBC 7.5 4.0 - 11 10*9/L RBC Count 4.38 (A) 4.4 - 5.9 10*12/L Hemoglobin 13.8 13.3 - 17.7 g/dL Hematocrit 41.7 40.0 - 53.0 % MCV 95.3 78 - 100 fL MCH 31.5 26 - 33 pg MCHC 33.1 31 - 36 g/dL Platelet Count 244 150 - 375 10^9/L % Granulocytes 65.7 % % Lymphocytes 26.4 % % Monocytes 7.9 % Signed Electronically by: Nathalie Tate MD documented in this encounter Nursing Notes * Felicita Carr CMA - 12/31/2023 4:45 PM CDT Chief Complaint Patient presents with Hospital F/U Pt seen in [facility] from 12/23-12/27 for a stroke, doing well today, needing home care orders documented in this encounter Plan of Treatment Not on file documented as of this encounter Goals Goal Patient Goal Type Associated Problems Recent Progress Patient-Stated? Author Transportation General On track( 019 3:46 PM PROJECT CONTROL MANAGER) Yes Nani Sainz LSW Note: Goal Statement: Caregiver will learn of options for transportation and volunteer respite services. Measure of Success: Caregiver will know if options are available. Supportive Steps to Achieve: CC will send resources via text and caregiver will call. Barriers: recently moved home after rehab. Strengths: Caregiver works, just started with adult [employer] health services today, 1-9 Date to Achieve By: January 17, 2019 Patient expressed understanding of goal: caregiver understands. documented as of this encounter Procedures Procedure Name Priority Date/Time Associated Diagnosis Comments [place] COLLECTION VENOUS BLOOD VENIPUNCTURE Routine 12/31/2023 4:55 PM CDT History of CVA (cerebrovascular accident) HEMOGRAM PLATELET DIFF (BFP) Routine 12/31/2023 History of CVA (cerebrovascular accident) COMPREHENSIVE METABOLIC PANEL (BFP) Routine 12/31/2023 History of CVA (cerebrovascular accident) documented in this encounter Results * (ABNORMAL) Comprehensive Metobolic Panel (BFP) (12/31/2023) [...] Blood 12/31/2023 Nathalie Tate MD [facility] Performing Organization Address [facility] de Phone Number BFP INTERNAL * (ABNORMAL) HEMOGRAM PLATELET DIFF (BFP) (12/31/2023) [...] Blood 12/31/2023 Nathalie Tate MD LAB - [facility] Performing Organization Address [facility] de Phone Number BFP INTERNAL documented in this encounter Visit Diagnoses Diagnosis History of CVA (cerebrovascular accident)- Primary Transient ischemic attack (TIA), and cerebral infarction without residual deficits Cerebrovascular accident (CVA), unspecified mechanism (H) Chemical dependency (H) Unspecified drug dependence, unspecified Alcoholism (H) Other and unspecified alcohol dependence, unspecified drinking behavior documented in this encounter Additional Health Concerns Assessment Noted Time PHQ-9 Depression Total Score: 10 022 4:15 PM CDT documented as of this encounter Care Teams Nurse Practitioner Physicians Assistant Relationship Specialty Start Date End Date Nathalie Tate MD [address] [place] [address] PCP - General Family Medicine 12/09/23 Nathalie Tate MD [address] [place] [address] Assigned PCP 06/28/23 documented as of this encounter
--- OUTSIDE RECORDS SUMMARY | 2024-03-04 03:47 | XMS_ITS | Encounter Summary ---
Author Name Unknown Organization [facility] Address [address] [place] [address] Care Team Providers Care Mule Spinner Name Role Phone Nathalie Tate MD Unavailable [phone] Nathalie Tate MD Primary Care Provider [phone] Reason for Visit * Reason Onset Date Comments Orders 03/03/2024 Director Of Managed Care Encounter Details Date Type Department Care Team (Late st Contact Info) Description 01/29/2024 Telephone [facility] [address] [place] [address] Nathalie Tate MD [address] [place] [address] Orders (Director Of Managed Care) Social History Tobacco Use Types Packs/Day Years [...] on file documented as of this encounter Miscellaneous Notes * Telephone Encounter - Eugenie Amador CMA - 03/03/2024 4:25 PM CDT Abena from [facility] called and looking for orders: [phone] Number is not a valid number Needs OV for hospital follow up for orders * Telephone Encounter - Felicita Carr CMA - 02/27/2024 2:00 PM CDT Min nurse from [facility] called asking for behavioral health visit to help address depression. She is seeking 1x a week for 6 weeks. Phone number I got was incorrect * Telephone Encounter - Felicita Carr CMA - 02/17/2024 9:37 AM CDT [place] nurse from [facility] called asking for 2 visits for 2 weeks and 2 PRN. I gave verbal ok for orders [place] # [phone] * Telephone Encounter - Eugenie Amador CMA - 01/29/2024 1:39 PM CDT LMOM * Telephone Encounter - Nathalie Tate MD - 01/29/2024 12:57 PM CDT Ok. * Telephone Encounter - Eugenie Amador CMA - 01/29/2024 12:34 PM CDT Sangeetha from [facility] called and is looking for orders for social work to come in and discuss with Pt cares and out of pocket cost for a CIVIL DRAFTER. Please advise Sangeetha - [phone] documented in this encounter Plan of Treatment Not on file documented as of this encounter Goals Goal Patient Goal Type Associated Problems Recent Progress Patient-Stated? 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 Measure of Success: Caregiver will know if options are available. Supportive Steps to Achieve: CC will send resources via text and caregiver will call. Barriers: recently moved home after rehab. Strengths: Caregiver works, just started with adult day health services today, 1 Date to Achieve By: January 17, 2019 Patient expressed understanding of goal: caregiver understands. documented as of this encounter Visit Diagnoses Not on filedocumented in this encounter Additional Health Concerns Assessment Noted Time PHQ-9 Depression Total Score: 10 022 4:15 PM CDT documented as of this encounter Care Teams Mule Spinner Relationship Specialty Start Date End Date Nathalie Tate MD [address] [place] [address] PCP - General Family Medicine 12/09/23 Nathalie Tate MD [address] [place] [address] Assigned PCP 06/28/23 documented as of this encounter
--- OUTSIDE RECORDS SUMMARY | 2024-03-04 03:47 | XMS_ITS | Encounter Summary ---
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
--- OUTSIDE RECORDS SUMMARY | 2024-03-04 03:48 | XMS_ITS | Encounter Summary ---
Author Name Unknown Organization [facility] Address [address] [place] [address]. [place] [address] Care Team Providers Care Mechanical Design Engineer Products Name Role Phone Nathalie Tate MD Unavailable [phone] Nathalie Tate MD Primary Care Provider [phone] Reason for Visit * Reason Comments Stroke Symptoms * Auth/Cert (Routine) Specialty Diagnoses / Procedures Referred By Lobo falk Referred To Contact Intensive Care Diagnoses Stroke (H) Acute ischemic stroke (H) Stroke (H) Intensive Care [address] [id number] Referral ID Status Reason Start Date Expiration Date Visits Re quested Visits Authorized [id number] 1 1 Encounter Details Date Type Department Care Team (Late st Contact Info) Description 12/24/2023 5:28 PM CORDWOOD CUTTER - 12/24/2023 9:33 PM CORDWOOD CUTTER Emergency [facility] [address] [place] [id number] [phone] Cali Cedillo MD [facility] [address] [id number] Acute ischemic stroke (H) Discharge Disposition: Another Health Care Institution with Planned Hospital IP Readmission Social History Tobacco Use Types Packs/Day Years [...] Sign Reading Time Taken Comments Blood Pressure 175/92 12/24/2023 9:20 PM CORDWOOD CUTTER Pulse 67 12/24/2023 9:20 PM CORDWOOD CUTTER Temperature 36.9 ??C (98.4 ??F) 12/24/2023 6:44 PM CS T Respiratory Rate 6 12/24/2023 9:20 PM CORDWOOD CUTTER Oxygen Saturation 95% 12/24/2023 8:40 PM CORDWOOD CUTTER Inhaled Oxygen Concentration - - Weight 73.9 kg (162 lb 14.7 oz) 12/24/2023 5:35 PM CORDWOOD CUTTER Height - - Body Mass Index 23.38 12/16/2023 2:52 PM CORDWOOD CUTTER documented in this encounter Medications at Time of Discharge Medication Sig Dispensed Refills Start Date End Date aspirin 81 MG EC tablet Take 81 mg by mouth every morning cyanocobalamin (CYANOCOBALAMIN) 1000 MCG/ML injection Inject 1 mL into the muscle every 30 days escitalopram (LEXAPRO) 20 MG tablet Take 60 mg by mouth every evening 01/31/2022 Multiple Vitamins-Iron (TAB-A-CATRACHO/IRON) TABSIndications:Alcohol ism (H) Take 1 capsule by mouth daily 100 tablet 3 06/03/2019 phenylephrine (LEATHA-SYNEPHRINE) 1 % nasal spray [place] 1 drop into both nostrils daily as needed for congestion tamsulosin (FLOMAX) 0.4 MG capsule Take 0.8 mg by mouth every evening 03/17/2020 thiamine (B-1) 100 MG tablet Take 100 mg by mouth every evening vitamin D2 (ERGOCALCIFEROL) 68047 units (1250 mcg) capsuleIndications:Alco holism (H) Take 1 capsule by mouth once a week 12 capsule 1 10/06/2023 acetaminophen (TYLENOL) 325 MG tabletIndications:Unste ariella gait when walking Take 2 tablets (650 mg) by mouth every 4 hours as needed for mild pain or other (and adjunct with moderate or severe pain or per patient request) 12/11/2023 12/31/2023 atorvastatin (LIPITOR) 40 MG tabletIndications:Mixed hyperlipidemia Take 1 tablet (40 mg) by mouth daily 90 tablet 3 06/20/2023 12/28/2023 atorvastatin (LIPITOR) 80 MG tabletIndications:Cereb rovascular accident (CVA), unspecified mechanism (H) Take 1 tablet (80 mg) by mouth every evening NOTE this is an INCREASE in dose from prior to hospital. Follow-up with PCP. Future refills by PCP Dr. Nathalie Tate with phone number [phone]. 30 tablet 12/28/2023 12/31/2023 disulfiram (ANTABUSE) 250 MG tablet Take 1 tablet (250 mg) by mouth daily NOTE this is an DECREASE in dose from prior to hospital. 12/28/2023 12/31/2023 disulfiram (ANTABUSE) 250 MG tabletIndications:Alcoh olism (H) Take 2 tablets (500 mg) by mouth daily 180 tablet 3 06/20/2023 12/28/2023 ibuprofen (ADVIL/MOTRIN) 600 MG tablet Take 600 mg by mouth every 6 hours as needed 07/23/2022 12/28/2023 documented as of this encounter Consult Notes * Charlotte Guerra MD - 12/24/2023 5:32 PM CST Images from the original note were not included. [facility] Stroke Consult Note Reason for Consult: Stroke Code Chief Complaint: Stroke Symptoms HPI Jed Alamo is a 68 year old man with h/o prior strokes (including R basal ganglia with mild residual L facial droop), cognitive decline / dementia (on Donepezil), CKD 3a, hyperlipidemia, tobacco use, and alcohol dependence (currently in remission, remains on disulfiram) who was just discharged on after he was admitted for fall with lethargy in the setting of diarrhea/dehydration, whose LKW was 16:30 and was brought in by family because was noticed to have a Left facial droop, Left sided weakness and slurred speech. BP on arrival 144/85. ED physician's exam shows slight Left facial droop, slurring and mild weakness on the left. Imaging Findings CT Head: No acute ischemia/hemorrhage CTA Head and Neck: No LVO/critical stenoses Intravenous Thrombolysis Risks (including potential for bleeding and ), benefits, and alternatives to thrombolytic therapy were discussed with Family. Prior to tenecteplase (TNK) administration, the following issues were addressed: Exam took long due to patient's pre-existing cogntive issues likely contributing but was highly inattentive to the examiner Concern for encephalopathy in the setting of known cognitive decline, concern for recrudescence with known past h/o R basal ganglia. Had long discussion with daughter on phone and at bedside TNK administered at 18:42 Endovascular Treatment Not initiated due to absence of proximal vessel occlusion Impression Slow non fluent speech Left sided weakness New stroke vs recrudescence vs encephalopathy S/p tnk Recommendations - Use orderset: Ischemic Stroke Post-Thrombolytics/Thrombectomy ICU Admission - Neurochecks and vital signs per post-thrombolytic orders and monitor closely for any evidence of STAFFING BRANCH MANAGER hemorrhage, bleeding, or orolingual angioedema - Goal BP < 180 / 105 - Hold all antithrombotic and anticoagulant medications for 24 hrs post-thrombolytic - Hold pharmacologic VTE prophylaxis for 24 hrs post-thrombolytic - Statin: per lipid profile results (LDL goal < 70) - Repeat Head CT 24 hrs post-thrombolytic - MRI Brain with and without contrast - TTE (with Bubble Study if age 60 yrs or less) - Telemetry, EKG - Bedside Glucose Monitoring - A1c, Lipid Panel, Troponin x 3 - PT/OT/OIL REFINER - Stroke Education - Euthermia, Euglycemia Patient Follow-up - final recommendation pending work-up Thank you for this consult. We will continue to follow. The Stroke Staff is Dr. Sanchez. Charlotte Guerra MD Vascular Neurology Fellow To page me or covering stroke neurology grocery team member, click here: [employer] Choose Meat Carrier tab at top, then select NEUROLOGY/ALL SITES from middle drop- down box, press Enter, then look for stroke or telestroke for your site. Clinically Significant Risk Factors Present on Admission # Drug Induced Platelet Defect: home medication list includes an antiplatelet medication # Hypertension: Noted on problem list # Dementia: noted on problem list Past Medical History Past Medical History: Diagnosis Date ALCOHOL ABUSE, IN REMISSION AA weekly Arthritis Chronic kidney disease Eczema ED (erectile dysfunction) HTN (hypertension), benign 2003 Hyperlipidemia 2005 Prediabetes 2008 Past Surgical History Past Surgical History: Procedure Laterality Date HC REMOVE TONSILS/ADENOIDS,<12 Y/O [facility] ARTHROTOMY W/OPEN MENISCUS REPAIR 2007 right -TRIA Medications Home Meds Prior to Admission medications Medication Sig Start Date End Date Taking? Authorizing Provider acetaminophen (TYLENOL) 325 MG tablet Take 2 tablets (650 mg) by mouth every 4 hours as needed for mild pain or other (and adjunct with moderate or severe pain or per patient request) 12/11/23 Sari Vasquez PA-C aspirin 81 MG EC tablet Take 81 mg by mouth every evening Unknown, Entered By History atorvastatin (LIPITOR) 40 MG tablet Take 1 tablet (40 mg) by mouth daily 06/20/23 Nathalie Tate MD cyanocobalamin (CYANOCOBALAMIN) 1000 MCG/ML injection Inject 1 mL into the muscle every 30 days Unknown, Entered By History disulfiram (ANTABUSE) 250 MG tablet Take 2 tablets (500 mg) by mouth daily 06/20/23 Nathalie Tate MD escitalopram (LEXAPRO) 20 MG tablet Take 60 mg by mouth every evening 01/31/22 Alton Alonzo MD ibuprofen (ADVIL/MOTRIN) 600 MG tablet Take 600 mg by mouth every 6 hours as needed 07/23/22 Reported, Patient Multiple Vitamins-Iron (TAB-A-CATRACHO/IRON) TABS Take 1 capsule by mouth daily 06/03/19 Alton Alonzo MD tamsulosin (FLOMAX) 0.4 MG capsule Take 0.8 mg by mouth every evening 03/17/20 Reported, Patient thiamine (B-1) 100 MG tablet Take 100 mg by mouth every evening Reported, Patient vitamin D2 (ERGOCALCIFEROL) 14433 units (1250 mcg) capsule Take 1 capsule by mouth once a week 10/06/23 Alton Alonzo MD Scheduled Meds Infusion Meds PRN Meds Allergies Allergies Allergen Reactions Sulfa Antibiotics Rash Family History Family History Problem Relation Age of Onset [...] hx of Dementia No family hx of Harrison Disease No family hx of Parkinsonism No family hx of Autism Spectrum Disorder No family hx of Intellectual Disability (Mental Retardation) No family hx of Mental Illness No family hx of Social History Social History Tobacco Use Smoking status: Former Packs/day: 0.50 Years: 30.00 Additional pack years: 0.00 Total pack years: 15.00 Types: Cigarettes, Other Start date: 10/20/1969 Passive exposure: Past Smokeless tobacco: Never Tobacco comments: Recently stopped 12/09/23 Substance Use Topics Alcohol use: No Alcohol/week: 0.0 standard drinks of alcohol Comment: 100ml or more daily; recent relapse 08/18/15 Drug use: No Review of Systems Review of systems not obtained due to patient factors - mental status PHYSICAL EXAMINATION Pulse: [88] 88 Resp: [18] 18 BP: (146)/(85) 146/85 SpO2: [96 %] 96 % See NIHSS Dysphagia Screen Dysarthria or facial droop present - Maintain NPO, consult OIL REFINER Stroke Scales NIHSS 1a. Level of Consciousness 0-->Alert, keenly responsive (slow and inattentive, not sleepy) 1b. LOC Questions 0-->Answers both questions correctly 1c. LOC Commands 0-->Performs both tasks correctly 2. Best Gaze 0-->Normal 3. Visual 0-->No visual loss 4. Facial Palsy 1-->Minor paralysis (flattened nasolabial fold, asymmetry on smiling) 5a. Motor Arm, Left 1-->Drift, limb holds 90 (or 45) degrees, but drifts down before full 10 seconds, does not hit bed or other support 5b. Motor Arm, Right 0-->No drift, limb holds 90 (or 45) degrees for full 10 secs 6a. Motor Leg, Left 0-->No drift, leg holds 30 degree position for full 5 secs 6b. Motor Leg, right 0-->No drift, leg holds 30 degree position for full 5 secs 7. Limb Ataxia 0-->Absent 8. Sensory 0-->Normal, no sensory loss 9. Best Language 1-->[id number] aphasia, some obvious loss of fluency or facility of comprehension, without significant limitation on ideas expressed or form of expression. Reduction of speech and/or comprehension, however, makes conversation. . . (see row details) 10. Dysarthria 0-->Normal 11. Extinction and Inattention 0-->No abnormality Total 3 (12/24/23 1848) Modified Denisse Score (Pre-morbid) unclear Imaging I personally reviewed all imaging; relevant findings per HPI. Lab Results Data CBC Recent Labs Lab 12/24/23 1742 WBC 10.5 RBC 4.27* HGB 12.9* HCT 38.2* PLT 240 Basic Metabolic Panel Recent Labs Lab 12/24/23 1738 GLC 101* Liver Panel No results for input(s): PROTTOTAL, ALBUMIN, BILITOTAL, ALKPHOS, AST, ALT, BILIDIRECTin the last 168 hours. INR Recent Labs Lab Test 01/20/22 0024 INR 1.15 Lipid Profile Recent Labs Lab Test 06/20/23 0000 08/07/22 0000 11/19/21 1215 CHOL 237* 186 156 HDL 44 49 47 LDL 148* 109 90 TRIG 224* 141 101 CHOLHDLRATIO 5 4 3.3 A1C Recent Labs Lab Test 11/19/21 1131 A1C 5.6 Troponin No results for input(s): CTROPT, TROPONINIS, TROPONINI, GHTROP in the last 168 hours. Stroke Code Data Data Stroke Code Data (for stroke code with tele) Stroke code activated 12/24/23 1728 First stroke provider response 12/24/23 1732 Video start time Video end time 12/24/23 1844 Last known normal 12/24/23 Time of discovery (or onset of symptoms) 12/24/[address] read by Stroke Neuro Provider 12/24/23 1751 Was stroke code de-escalated? No Telestroke Service Details Type of service telemedicine diagnostic assessment of acute neurological changes Reason telemedicine is appropriate patient requires assessment with a specialist for diagnosis and treatment of neurological symptoms Mode of transmission secure interactive audio and video communication per Saurabh Originating site (patient location) [facility] Distant site (provider location) Provider remote site WOOD CUTTER Associated attestation - Jose M Sanchez MD - 12/25/2023 2:18 PM CORDWOOD CUTTER Vascular Neurology Attending Attestation In summary, Jed Alamo is a 68 year old male with h/o prior strokes (including R basal ganglia with mild residual L facial droop), cognitive decline / dementia (on Donepezil), CKD 3a, hyperlipidemia, tobacco use, and alcohol dependence (currently in remission, remains on disulfiram) who was just discharged on after he was admitted for fall with lethargy in the setting of diarrhea/dehydration, whose LKW was 16:30 and was brought in by family because was noticed to have a Left facialdroop, Left sided weakness and slurred speech. BP on arrival 144/85. ED physician's exam shows slight Left facial droop, slurring and mild weakness on the left. Risks and benefits were discussed and given disabling deficits pt was considered candidate for TNK , family agreed to proceed with IVT. Post TNK care Hold antithrombotics BP goal <180/105 Transfer for close neurological monitoring post TNK I personally spent a total of 36 minutes in the care of this critically ill patient. Total time excludes any procedures performed. Jed Alamo is in critical condition due to L sided weakness and is at high risk of further neurologic deterioration and requires the highest level of physician preparedness to intervene urgently. I saw the Jed Alamo on 12/24/23 with the fellow. I reviewed all laboratory studies and neuroimaging. I discussed the plan with the fellow and agree with their note. I have personally spent a total of 36 minutes consulting with his medical providers and assessing the patient today, with more than 50% of this time spent in consultation, coordination of care, and discussion with the patient and/or family regarding diagnostic results, prognosis, symptom management, risks and benefits of management options, and development of the plan of care of above. Jose M Sanchez MD Department of Neurology Division of Stroke documented in this encounter ED Notes * Ofelia Campbell RN - 12/24/2023 8:06 PM CST Report given to Corine at [facility]. Call [phone] when EMS is coming to pickup WOOD CUTTER * Tiara Eduardo RN - 12/24/2023 5:36 PM CST Pt comes in from home. Recently hospitalized a week ago for medication reactions to a new antidepressant. Per around 1500 pt had unwitnessed fall and he walked to his bed and then was unable to get back up. Started having aphasia and left sided weakness. Pt appears to have generalized weaknessand leaning to the right but otherwise moving all extremities. BG 101 WOOD CUTTER * Elizabet Guerrero RN - 12/24/2023 5:28 PM CST Bed: ED10 Expected date: Expected time: Means of arrival: Comments: Triage stroke WOOD CUTTER * Cali Cedillo MD - 12/24/2023 5:28 PM CST History Chief Complaint: Stroke Symptoms The history is provided by the patient and the spouse. Jed Alamo is a 68 year old male with history of CVA, CKD stage 3, AFLD, and dementia who presents to the ED for evaluation of stroke symptoms. Jed's reports per daughter, who was home at the time, that the patient got up around 1500 today and fell in the living room. He went back to his bed but then could not get out of bed due to left-sided weakness. endorses left facial droop. Daughter also noticed slurred speech and dysarthria, which has improved. He is not on anticoagulation. believes his last known well was between 3 and 4 PM this evening. He was recently admitted here for ataxic gait. No known head injuries. No other chest pain or shortness of breath. The patient denies any headache or other complaints at this time. No recent fevers or illnesses. Independent Historian: Spouse/Partner - They report as above with assistance from daughter. Review of External Notes: Medications: Aspirin 81 mg Atorvastatin Disulfiram Escitalopram Tamsulosin Past Medical History: Hypertension Hyperlipidemia ED Eczema Tobacco use disorder Prediabetes Insomnia CAMILO Pulmonary nodules Alcoholic fatty liver disease 6th nerve palsy Mild anemia Alcohol use disorder MDD Cognitive communication deficit CVA SILVANO CKD stage 3 Syncope Acute renal failure Unsteady gait when walking Substance induced mood disorder Migraine Dementia Past Surgical History: Tonsillectomy and adenoidectomy Arthrotomy with open meniscus repair, right Physical Exam Patient Vitals for the past 24 hrs: BP Temp Temp src Pulse Resp SpO2 Weight 12/24/23 1844 -- 98.4 ??F (36.9 ??C) Oral -- -- -- -- 12/24/23 1840 (!) 156/89 -- -- -- -- -- -- 12/24/23 1735 (!) 146/85 -- -- 88 18 96 % 73.9 kg (162 lb 14.7 oz) Physical Exam Constitutional: Well appearing. HEENT: Atraumatic. PERRL. EOMI. Moist mucous membranes. Neck: Soft. Supple. No JVD. Cardiac: Regular rate and rhythm. No murmur or rub. Respiratory: Clear to auscultation bilaterally. No respiratory distress. No wheezing, rhonchi, or rales. Abdomen: Soft and nontender. No rebound or guarding. Nondistended. Musculoskeletal: No edema. Normal range of motion. Neurologic: Alert and oriented x3. Normal tone and bulk. Cranial nerves II through XII intact. There is a left-sided facial droop, mild dysarthria, and some mild aphasia versus encephalopathy. 5/5 strength in right arm and leg. 4/5 strength in the right left arm and leg. Skin: No rashes. No edema. Psych: Normal affect. Normal behavior. Emergency Department Course ECG results from 12/24/23 EKG 12-lead, tracing only Value Systolic Blood Pressure Diastolic Blood Pressure Ventricular Rate 74 Atrial Rate 74 VA Interval 158 QRS Duration 84 QT 384 QTc 426 P [place] 48 R AXIS 25 T [place] 49 Interpretation ECG Sinus rhythm Normal ECG When compared with ECG of 09-DEC-2023 14:19, No significant change was found Imaging: CTA Head Neck with Contrast Preliminary Result IMPRESSION: HEAD CTA: 1. No evidence of large vessel occlusion or high-grade stenosis. NECK CTA: 1. No evidence of large vessel occlusion or high-grade stenosis. CT Head w/o Contrast Final Result IMPRESSION: 1. No evidence of hemorrhage. 2. No convincing acute infarct. 3. Multiple old infarcts. Findings were discussed by phone between Dr. Hernandez and Dr. Arnett at approximately 5:47 PM on 12/24/2023. Report per radiology Laboratory: Labs Ordered and Resulted from Time of ED Arrival to Time of ED Departure BASIC METABOLIC PANEL - Abnormal Result Value Sodium 140 Potassium 4.2 Chloride 104 Carbon Dioxide (CO2) 26 Anion Gap 10 Urea Nitrogen 18.6 Creatinine 1.38 (*) GFR Estimate 56 (*) Calcium 9.4 Glucose 96 CBC WITH PLATELETS AND DIFFERENTIAL - Abnormal WBC Count 10.5 RBC Count 4.27 (*) Hemoglobin 12.9 (*) Hematocrit 38.2 (*) MCV 90 MCH 30.2 MCHC 33.8 RDW 13.0 Platelet Count 240 % Neutrophils 71 % Lymphocytes 18 % Monocytes 8 % Eosinophils 1 % Basophils 1 % Immature Granulocytes 1 NRBCs per 100 WBC 0 Absolute Neutrophils 7.6 Absolute Lymphocytes 1.9 Absolute Monocytes 0.8 Absolute Eosinophils 0.1 Absolute Basophils 0.1 Absolute Immature Granulocytes 0.1 Absolute NRBCs 0.0 AMMONIA - Abnormal Ammonia 13 (*) GLUCOSE BY METER - Abnormal GLUCOSE BY METER POCT 101 (*) INR - Normal INR 0.95 PARTIAL THROMBOPLASTIN TIME - Normal aPTT 28 TROPONIN T, HIGH SENSITIVITY - Normal Troponin T, High Sensitivity 20 ETHYL ALCOHOL LEVEL - Normal Alcohol ethyl <0.01 HEPATIC FUNCTION PANEL - Normal Protein Total 7.0 Albumin 4.4 Bilirubin Total 0.3 Alkaline Phosphatase 131 AST 24 ALT 55 Bilirubin Direct <0.20 GLUCOSE MONITOR NURSING POCT ROUTINE UA WITH MICROSCOPIC REFLEX TO CULTURE Procedures None Emergency Department Course & Assessments: Assessments/Consultations/Discussion of Management or Tests: 173 I obtained history and examined the patient as noted above. [address] Guerra, stroke neurology, regarding the patient's history and presentation inthe emergency department today. 1749 I spoke with radiology regarding the patient's imaging. [address] Guerra of stroke neurology again. Patient will be transferred out. Interventions: Medications sodium chloride 0.9 % infusion (has no administration in time range) labetalol (NORMODYNE/TRANDATE) injection 10 mg (has no administration in time range) Or hydrALAZINE (APRESOLINE) injection 10 mg (has no administration in time range) niCARdipine 40 mg in 200 mL NS (CARDENE) infusion (has no administration in time range) iopamidol (ISOVUE-370) solution 120 mL (67 mLs Intravenous $Given 12/24/23 1743) Saline CT scan flush (80 mLs Intravenous $Given 12/24/23 1746) tenecteplase (TNKase) injection 18.5 mg (18.5 mg Intravenous $Given 12/24/23 1840) Independent Interpretation (X-rays, CTs, rhythm strip): None Social Determinants of Health affecting care: None Disposition: The patient was transferred to [facility] ICU via EMS. Dr. Watson accepted the patient for transfer. Impression & Plan Medical Decision Making: Jed Alamo is a 68-year-old man is afebrile and hemodynamically stable. He has left-sided arm and leg weakness as well as left facial droop and dysarthria. There has been some improvement of symptoms but deficits are still present. Code stroke was initiated. CT imaging as above with no acutefindings. Prolonged discussion between patient, , and stroke neurology. Shared decision making led to the patient be given TNK for his symptoms. Discussed with patient and about plan for transfer to the ICU at [facility] for post TNK monitoring. Metabolic workup unrevealing thus far. reports some improvement in symptoms and he developed no headache or worsening of symptoms wh ile here. Discussed with hospital service at [facility] and he is excepted in stable condition. Critical Care Time was 50 for this patient excluding procedures. Diagnosis: ICD-10-CM 1. Acute ischemic stroke (H) I63.9 Scribe Disclosure: Giuliana Merchant Hailie, am serving as a scribe at 5:31 PM on 12/24/2023 to document services personallyperformed by Cali Cedillo MD based on my observations and the provider's statements to me. 12/24/2023 Cali Cedillo MD Salay, Nicholas J, MD 12/25/23 0017 WOOD CUTTER documented in this encounter Plan of Treatment Not on file documented as of this encounter Goals Goal Patient Goal Type Associated Problems Recent Progress Patient-Stated? Author Transportation General On track( 019 3:46 PM CORDWOOD CUTTER) Yes Nani Sainz LSW Note: Goal Statement: Caregiver will learn of options for transportation and volunteer respite services. Measure of Success: Caregiver will know if options are available. Supportive Steps to Achieve: CC will send resources via text and caregiver will call. Barriers: recently moved home after rehab. Strengths: Caregiver works, just started with [employer] services today, 10-28 Date to Achieve By: January 17, 2019 Patient expressed understanding of goal: caregiver understands. documented as of this encounter Procedures Procedure Name Priority Date/Time Associated Diagnosis Comments EKG 12-LEAD, TRACING ONLY STAT 12/24/2023 6:55 PM CORDWOOD CUTTER AMMONIA STAT 12/24/2023 5:56 PM CORDWOOD CUTTER CTA HEAD NECK W CONTRAST STAT 12/24/2023 5:[address] HEAD W/O CONTRAST STAT 12/24/2023 5:48 PM CORDWOOD CUTTER CBC WITH PLATELETS AND DIFFERENTIAL STAT 12/24/2023 5:42 PM CORDWOOD CUTTER TROPONIN T, HIGH SENSITIVITY STAT 12/24/2023 5:42 PM CORDWOOD CUTTER CBC WITH PLATELETS & DIFFERENTIAL STAT 12/24/2023 5:42 PM CORDWOOD CUTTER INR STAT 12/24/2023 5:42 PM CORDWOOD CUTTER PARTIAL THROMBOPLASTIN TIME STAT 12/24/2023 5:42 PM CORDWOOD CUTTER HEPATIC FUNCTION PANEL STAT 5:42 PM CORDWOOD CUTTER ETHYL ALCOHOL LEVEL STAT 12/24/2023 5 :42 PM CORDWOOD CUTTER BASIC METABOLIC PANEL STAT 12/24/2023 5:42 PM CORDWOOD CUTTER GLUCOSE BY METER STAT 12/24/2023 5:38 PM [facility] CUTTER documented in this encounter Results * EKG 12-lead, tracing only (12/24/2023 6:55 PM CORDWOOD CUTTER) Systolic Blood Pressure mmHg RADIOLOGY RESULTS Diastolic Blood Pressure mmHg RADIOLOGY RESULTS Ventricular Rate 74 BPM RAD IOLOGY RESULTS Atrial Rate 74 BPM RADIOLOG Y RESULTS VA Interval 158 ms RADIOLOG Y RESULTS QRS Duration 84 ms RADIOLO GY RESULTS QT 384 ms RADIOLOGY RESULTS QTc 426 ms RADIOLOGY RESULTS P [place] 48 degrees RADIOLOGY RESULTS R AXIS 25 degrees RADIOLOGY RESULTS T [place] 49 degrees RADIOLOGY RESULTS Interpretation ECG Sinus rhythm Normal ECG When compared with ECG of 09-DEC-2023 14:19, No significant change was found Unconfirmed report - interpretation of this ECG is computer generated - see medical record for final interpretation Confirmed by - EMERGENCY ROOM, PHYSICIAN ([id number]), editor trade journal SAMUEL TESFAYE ([id number]) on 12/25/2023 6:48:33 AM RADIOLOGY RESULTS 12/24/2023 6:55 PM [facility]WOOD CUTTER 12/25/2023 6:48 AM [facility] CUTTER Cali Cedillo MD ECG ORDERABLES RADIOLOGY RESULTS * (ABNORMAL) Ammonia (on ice) (12/24/2023 5:56 PM CORDWOOD CUTTER) Ammonia 13(L) 16 - 60 umol/L 12/24/2023 6:18 PM [facility] Blood BLOOD SPECIMEN / Unknown Venipuncture / Unknown 12/24/2023 5:56 PM C[facility]WOOD CUTTER 12/24/2023 5:58 PM [facility] CUTTER Cali Cedillo MD LAB - BLOOD ORDERABL ES [facility] [address] Lab (1st floor, no room number) [place] [address] [phone] * CTA Head Neck with Contrast (12/24/2023 5:55 PM CORDWOOD CUTTER) Anatomical Region Laterality Modality Head, SUBRAD CT NEURO, SUBRA D CT NEURO, UMP CT NEURO, RAD CT Computed Tomography 12/24/2023 5:55 PM CORDWOOD CUTTER Impressions 12/24/2023 7:02 PM C[facility]WOOD CUTTER IMPRESSION: HEAD CTA: 1. ??No evidence of large vessel occlusion or high-grade stenosis. NECK CTA: 1. ??No evidence of large vessel occlusion or high-grade stenosis. Narrative 12/24/2023 7:02 PM CORDWOOD CUTTER EXAM: CTA HEAD NECK W CONTRAST LOCATION: [facility] DATE: 12/24/2023 INDICATION: Code Stroke to evaluate for potential thrombolysis and thrombectomy. PLEASE READ IMMEDIATELY. Left-sided weakness COMPARISON: None. CONTRAST: 67 mL Isovue 370 TECHNIQUE: Axial helical CT images of the head and neck vessels obtained during the arterial phase of intravenous contrast administration. Axial 2D reconstructed images and multiplanar 3D MIP reconstructed images of the head and neck vessels were performed by the technologist. Dose reduction techniques were used. All stenosis measurements made according to NASCET criteria unless otherwise specified. FINDINGS: NONCONTRAST HEAD CT: INTRACRANIAL CONTENTS: No intracranial hemorrhage, extraaxial collection, or mass effect. ??No CT evidence of acute infarct. Normal parenchymal attenuation. Normal ventricles and sulci. VISUALIZED ORBITS/SINUSES/MASTOIDS: No intraorbital abnormality. No paranasal sinus mucosal disease. No middle HEAD CTA: No evidence of large vessel occlusion, high-grade stenosis, convincing aneurysm, or vascular malformation. Slight bulbous appearance of the basilar artery tip. Incidental origins of the bilateral posterior cerebral arteries. Scattered atherosclerotic plaquing with mild stenoses. NECK CTA: No evidence of large vessel occlusion, high-grade stenosis, or dissection. INCIDENTAL FINDINGS: Cervical spine degenerative changes. Presumed atelectasis at the lung apices. Presumed benign sclerosis within the C7 vertebra. Procedure Note Robert Hernandez MD - 12/24/2023 EXAM: CTA HEAD NECK W CONTRAST LOCATION: [facility] DATE: 12/24/2023 INDICATION: Code Stroke to evaluate for potential thrombolysis andthrombectomy. PLEASE READ IMMEDIATELY. Left-sided weakness COMPARISON: None. CONTRAST: 67 mL Isovue 370 TECHNIQUE: Axial helical CT images of the head and neck vessels obtainedduring the arterial phase of intravenous contrast administration. Axial 2Dreconstructed images and multiplanar 3D MIP reconstructed images of thehead and neck vessels were performed by the technologist. Dose reduction techniques were used. Allstenosis measurements made according to NASCET criteria unless otherwisespecified. FINDINGS: NONCONTRAST HEAD CT: INTRACRANIAL CONTENTS: No intracranial hemorrhage, extraaxial collection,or mass effect. No CT evidence of acute infarct. Normal parenchymalattenuation. Normal ventricles and sulci. VISUALIZED ORBITS/SINUSES/MASTOIDS: No intraorbital abnormality. Noparanasal sinus mucosal disease. No middle HEAD CTA: No evidence of large vessel occlusion, high-grade stenosis, convincinganeurysm, or vascular malformation. Slight bulbous appearance of thebasilar artery tip. Incidental origins of the bilateral posteriorcerebral arteries. Scattered atherosclerotic plaquing with mild stenoses. NECK CTA: No evidence of large vessel occlusion, high-grade stenosis, ordissection. INCIDENTAL FINDINGS: Cervical spine degenerative changes. Presumedatelectasis at the lung apices. Presumed benign sclerosis within the [id number]. IMPRESSION: HEAD CTA: 1. No evidence of large vessel occlusion or high-grade stenosis. NECK CTA: 1. No evidence of large vessel occlusion or high-grade stenosis. Cali Cedillo MD [facility] CT ORDERABLES * CT Head w/o Contrast (12/24/2023 5:48 PM CORDWOOD CUTTER) Anatomical Region Laterality Modality Head, SUBRAD CT NEURO, SUBRA D CT NEURO, UMP CT NEURO, RAD CT Computed Tomography 12/24/2023 5:48 PM CORDWOOD CUTTER Impressions 12/24/2023 6:13 PM C[facility]WO[facility] CUTTER IMPRESSION: 1. ??No evidence of hemorrhage. 2. ??No convincing acute infarct. 3. ??Multiple old infarcts. Findings were discussed by phone between Dr. Hernandez and Dr. Arnett at approximately 5:47 PM on 12/24/2023. Narrative 12/24/2023 6:13 PM CORDWOOD CUTTER EXAM: CT HEAD W/O CONTRAST LOCATION: [facility] DATE: 12/24/2023 INDICATION: Code Stroke to evaluate for potential thrombolysis and thrombectomy. Left-sided weakness. COMPARISON: Head MRI 12/09/2023 TECHNIQUE: Routine CT Head without IV contrast. Multiplanar reformats. Dose reduction techniques were used. FINDINGS: No evidence of hemorrhage. No convincing acute infarct by CT. Generalized volume loss is present with background of patchy and confluent white matter T2 hyperintensities likely represent chronic small vessel ischemic change. Multiple small infarcts are not appreciably changed. Old basal ganglia, thalamic, and marin lacunar infarcts. Old left cerebellar infarcts. No acute osseous abnormality. Procedure Note Robert Hernandez MD - 12/24/2023 EXAM: CT HEAD W/O CONTRAST LOCATION: [facility] DATE: 12/24/2023 INDICATION: Code Stroke to evaluate for potential thrombolysis andthrombectomy. Left-sided weakness. COMPARISON: Head MRI 12/09/2023 TECHNIQUE: Routine CT Head without IV contrast. Multiplanar reformats.Dose reduction techniques were used. FINDINGS: No evidence of hemorrhage. No convincing acute infarct by CT. Generalizedvolume loss is present with background of patchy and confluent whitematter T2 hyperintensities likely represent chronic small vessel ischemicchange. Multiple small infarcts are not appreciably changed. Old basal ganglia, thalamic, and marin lacunarinfarcts. Old left cerebellar infarcts. No acute osseous abnormality. IMPRESSION: 1. No evidence of hemorrhage. 2. No convincing acute infarct. 3. Multiple old infarcts. Findings were discussed by phone between Dr. Hernandez and Dr. Melquiades curry 5:47 PM on 12/24/2023. Cali Cedillo MD [facility] CT ORDERABLES * Hepatic function panel (12/24/2023 5:42 PM CORDWOOD CUTTER) Protein Total 7.0 6.4 - 8.3 g/dL 12/24/2023 6:31 PM [facility] Albumin 4.4 3.5 - 5.2 g/dL 12/24/2023 6:31 PM [facility] Bilirubin Total 0.3 <=1.2 mg/dL 12/24/2023 6:31 PM [facility] Alkaline Phosphatase 131 40 - 150 U/L 12/24/2023 6:31 PM [facility] Comment:Reference intervals for this test were updated on 09/02/2023 to more accurately reflect our healthy population. There may be differences in the flagging of prior results with similar values performed with this method. Interpretation of those prior results can be made in the context of the updated reference intervals. AST 24 0 - 45 U/L 12/24/2023 6:31 PM [facility] Comment:Reference intervals for this test were updated on 03/31/2023 to more accurately reflect our healthy population. There may be differences in the flagging of prior results with similar values performed with this method. Interpretation of those prior results can be made in the context of the updated reference intervals. ALT 55 0 - 70 U/L 12/24/2023 6:31 PM [facility] Comment:Reference intervals for this test were updated on 03/31/2023 to more accurately reflect our healthy population. There may be differences in the flagging of prior results with similar values performed with this method. Interpretation of those prior results can be made in the context of the updated reference intervals. Bilirubin Direct <0.20 0.00 - 0.30 mg/dL 12/24/2023 6:31 PM [facility] Blood BLOOD SPECIMEN / Unknown Venipuncture / Unknown 12/24/2023 5:42 PM CORDWOOD CUTTER 12/24/2023 5:45 PM C[facility]WOOD CUTTER Cali Cedillo MD LAB - BLOOD ORDERABL ES [facility] [address] Lab (1st floor, no room number) [place] [address], [facility] [phone] * Alcohol level blood (12/24/2023 5:42 PM CORDWOOD CUTTER) Alcohol ethyl <0.01 <=0.01 g/dL 12/24/2023 6:31 PM [facility] Blood BLOOD SPECIMEN / Unknown Venipuncture / Unknown 12/24/2023 5:42 PM CORDWOOD CUTTER 12/24/2023 5:45 PM C[facility]WOOD CUTTER Cali Cedillo MD LAB - BLOOD ORDERABL ES [facility] [address] Lab (1st floor, no room number) [place] [address], [facility] [phone] * (ABNORMAL) CBC with platelets and differential (12/24/2023 5:42 PM CORDWOOD CUTTER) WBC Count 10.5 4.0 - 11.0 10e3/uL 12/24/2023 5:48 PM [facility] RBC Count 4.27(L) 4.40 - 5.90 10e6/uL 12/24/2023 5:48 PM [facility] Hemoglobin 12.9(L) 13.3 - 17.7 g/dL 12/24/2023 5:48 PM [facility] Hematocrit 38.2(L) 40.0 - 53.0 % 12/24/2023 5:48 PM [facility] MCV 90 78 - 100 fL 12/24/2023 5:48 PM [facility] C[facility] MCH 30.2 26.5 - 33.0 pg 12/24/2023 5:48 PM [facility] MCHC 33.8 31.5 - 36.5 g/dL 12/24/2023 5:48 PM [facility] RDW 13.0 10.0 - 15.0 % 12/24/2023 5:48 PM [facility] Platelet Count 240 150 - 450 10e3/uL 12/24/2023 5:48 PM [facility] % Neutrophils 71 % 12/24/2023 5:48 PM [facility] % Lymphocytes 18 % 12/24/2023 5:48 PM [facility] % Monocytes 8 % 12/24/2023 5:48 PM [facility] % Eosinophils 1 % 12/24/2023 5:48 PM [facility] % Basophils 1 % 12/24/2023 5:48 PM [facility] % Immature Granulocytes 1 % 12/24/2023 5:48 PM [facility] NRBCs per 100 WBC 0 <1 /100 024 5:48 PM [facility] C[facility] Absolute Neutrophils 7.6 1.6 - 8.3 10e3/uL 12/24/2023 5:48 PM [facility] C[facility] Absolute Lymphocytes 1.9 0.8 - 5.3 10e3/uL 12/24/2023 5:48 PM [facility] C[facility] Absolute Monocytes 0.8 0.0 - 1.3 10e3/uL 12/24/2023 5:48 PM [facility] C[facility] Absolute Eosinophils 0.1 0.0 - 0.7 10e3/uL 12/24/2023 5:48 PM [facility] Absolute Basophils 0.1 0.0 - 0.2 10e3/uL 12/24/2023 5:48 PM [facility] Absolute Immature Granulocytes 0.1 <=0.4 10e3/uL 12/24/2023 5:48 PM [facility] Absolute NRBCs 0.0 10e3/uL 12/24/2023 5:48 PM [facility] Blood BLOOD SPECIMEN / Unknown Venipuncture / Unknown 12/24/2023 5:42 PM CORDWOOD CUTTER 12/24/2023 5:45 PM C[facility]WOOD CUTTER Cali Cedillo MD LAB - BLOOD ORDERABL ES LABORATORY [facility] [address] [facility] Lab (1st floor, no room number) [place] [address], [facility] [phone] * Troponin T, High Sensitivity (12/24/2023 5:42 PM CORDWOOD CUTTER) [facility] Troponin T, High Sensitivity 20 <=22 ng/L 12/24/2023 6:08 PM [facility] Comment: Either a High Sensitivity Troponin [...] Unknown Venipuncture / Unknown 12/24/2023 5:42 PM CORDWOOD CUTTER 12/24/2023 5:45 PM C[facility]WOOD CUTTER Cali Cedillo MD LAB - BLOOD ORDERABL ES [facility] [address] Lab (1st floor, no room number) [place] [address], [facility] [phone] * Partial thromboplastin time (12/24/2023 5:42 PM CORDWOOD CUTTER) aPTT 28 22 - 38 Seconds 12/24/2023 5:58 PM [facility] C[facility] Blood BLOOD SPECIMEN / Unknown Venipuncture / Unknown 12/24/2023 5:42 PM CORDWOOD CUTTER 12/24/2023 5:45 PM C[facility]WOOD CUTTER Cali Cedillo MD LAB - BLOOD ORDERABL ES Performing Organization Address [facility]/ZIP Co de Phone Number [facility] [address] Lab (1st floor, no room number) [place] [address], [facility] [phone] * INR (12/24/2023 5:42 PM CORDWOOD CUTTER) INR 0.95 0.85 - 1.15 12/24/2023 5:57 PM [facility] C[facility] Blood BLOOD SPECIMEN / Unknown Venipuncture / Unknown 12/24/2023 5:42 PM CORDWOOD CUTTER 12/24/2023 5:45 PM CORDWOOD CUTTER Cali Cedillo MD LAB - BLOOD ORDERABL ES Performing Organization Address City/[facility]/ZIP Co de Phone Number [facility] Lab [address] Lab (1st floor, no room number) [place] [address], [facility] [phone] * (ABNORMAL) Basic metabolic panel (12/24/2023 5:42 PM CORDWOOD CUTTER) Sodium 140 135 - 145 mmol/L 12/24/2023 6:08 PM [facility] Comment:Reference intervals for this test were updated on 07/15/2023 to more accurately reflect our healthy population. There may be differences in the flagging of prior results with similar values performed with this method. Interpretation of those prior results can be made in the context of the updated reference intervals. Potassium 4.2 3.4 - 5.3 mmol/L 12/24/2023 6:08 PM [facility] Chloride 104 98 - 107 mmol/L 12/24/2023 6:08 PM [facility] Carbon Dioxide (CO2) 26 22 - 29 mmol/L 12/24/2023 6:08 PM [facility] Anion Gap 10 7 - 15 mmol/L 12/24/2023 6:08 PM [facility] Urea Nitrogen 18.6 8.0 - 23.0 mg/dL 12/24/2023 6:08 PM [facility] Creatinine 1.38(H) 0.67 - 1.17 mg/dL 12/24/2023 6:08 PM [facility] GFR Estimate 56(L) >60 mL/min/1. 73m2 12/24/2023 6:08 PM [facility] Calcium 9.4 8.8 - 10.2 mg/dL 12/24/2023 6:08 PM [facility] Glucose 96 70 - 99 mg/dL 12/24/2023 6:08 PM [facility] Blood BLOOD SPECIMEN / Unknown Venipuncture / Unknown 12/24/2023 5:42 PM C[facility]WO[facility] CUTTER 12/24/2023 5:45 PM C[facility]WO[facility] CUTTER Cali Cedillo MD LAB - BLOOD ORDERABL ES LABORATORY [facility] [address] [facility] Lab (1st floor, no room number) [place] [address], [facility] [phone] * (ABNORMAL) Glucose by meter (12/24/2023 5:38 PM CORDWOOD CUTTER) [facility] GLUCOSE BY METER POCT 101(H) 70 - 99 mg/dL 12/24/2023 5:45 PM [facility] POC Blood, Capillary BLOOD SPECIMEN / Unknown 12/24/2023 5:38 PM C[facility]WO[facility] CUTTER 12/24/2023 5:45 PM C[facility]WO[facility] CUTTER [facility] [address] Lab (1st floor, no room number) [place] [address], [facility] [phone] documented in this encounter Visit Diagnoses Diagnosis Acute ischemic stroke (H) Unspecified cerebral artery occlusion with cerebral infarction documented in this encounter Administered Medications Inactive Administered Medications - up to 3 most recent administrations Medication Order MAR Action Action Date Dose Rate Site hydrALAZINE (APRESOLINE) injection 10 mg 10 mg, Intravenous, EVERY 10 MIN PRN, other, for systolic BP greater than 180 mmHg or diastolic BP greater than 105 mmHg, Administer over 1 Minutes, Starting on Fri12/24/23 at 1826, Use if heart rate LESS than 60 bpm. GOAL: Systolic BP less than 180 mmHg AND Diastolic BP less than 105 mmHg for 3 consecutive readings 5 mins apart. - If BP goal not met after 10 mins, repeat x 1, and notify Provider to initiate niCARdipine infusion as directed. iopamidol (ISOVUE-370) solution 120 mL 120 mL, Intravenous, ONCE, On Fri12/24/23 at 1745, For 1 dose $Given 12/24/2023 5:43 PM C[facility]WOOD CUTTER 67 mLs labetalol (NORMODYNE/TRANDATE) injection 10 mg 10 mg, Intravenous, EVERY 10 MIN PRN, other, for systolic BP greater than 180 mmHg or diastolic BP greater than 105 mmHg, Starting on Fri12/24/23 at 1826, Use if heart rate GREATER than or EQUAL to 60 bpm GOAL: Systolic BP less than 180 mmHg AND Diastolic BP less than 105 mmHg for 3 consecutive readings 5 mins apart. - If BP goal not met after 10 mins, repeat x 1, and notify Provider to initiate niCARdipine infusion as directed. Hold if heart rate less than 60 bpm. PROTECT FROM LIGHT. niCARdipine 40 mg in 200 mL NS (CARDENE) infusion 2.5-15 mg/hr (12.5-75 mL/hr), Intravenous, CONTINUOUS PRN, for systolic BP greater than 180 mmHg or diastolic BP greater than 105 mmHg or as directed by Provider, Starting on Fri12/24/23 at 1826, GOAL: systolic BP less than 180 mmHg AND diastolic BP less than 105 mmHg for 3 consecutive readings 5 min apart. Verify with Provider before initiating niCARDipine infusion. Starting Dose: 5 mg/hr. May start at 2.5 mg/hr as directed by provider if concern for excessive reduction in blood pressure. Adjustment Increase/Decrease: 2.5 mg/hr. Adjust every 5 minutes. Max dose/rate: 15 mg/hr. Irritant. To minimize risk of peripheral venous irritation, it is recommended that the site of infusion be changed every 12 hours. Protect from light. Saline CT scan flush Intravenous, 100 mL, ONCE, On Fri12/24/23 at 1745, For 1 dose $Given 12/24/2023 5:46 PM C[facility]WO[facility] CUTTER 80 mLs sodium chloride 0.9 % infusion at 20 mL/hr, Intravenous, CONTINUOUS PRN, May leave at TKO or saline lock., Starting on Fri12/24/23 at 1826, Until Fri12/24/23 at 2204 tenecteplase (TNKase) injection 18.5 mg 18.5 mg (rounded from 18.475 mg = 0.25 mg/kg ? 73.9 kg), Intravenous, ONCE, On Fri12/24/23 at 1830, For 1 dose, - HOLD if systolic BP GREATER than 180 OR diastolic BP GREATER than 105. - If BP exceeds parameter, see hydralazine/labetalol/nicardipine orders. - FLUSH LINE WITH 3-10 mL NORMAL SALINE before and after tenecteplase administration. - Administer as IV bolus over 5 seconds. Maximum dose for ischemic stroke = 25 mg. Not compatible with D5W containing solutions. $Given 12/24/2023 6:40 PM CORDWOOD CUTTER 18.5 mg documented in this encounter Active and Recently Administered Medications Times are shown in [facility] CUTTER. Scheduled Medication Order 12/22/2023 12/23/2023 12/24/2023 iopamidol (ISOVUE-370) solution 120 mL (COMPLETED) 120 mL, Intravenous, ONCE, On Fri12/24/23 at 1745, For 1 dose 1743 ($Given - Provi rafi: JOCELINE Castro) Saline CT scan flush (COMPLETED) Intravenous, 100 mL, ONCE, On Fri12/24/23 at 1745, For 1 dose 1746 ($Given - Provi rafi: JOCELINE Castro) tenecteplase (TNKase) injection 18.5 mg (COMPLETED) 18.5 mg (rounded from 18.475 mg = 0.25 mg/kg ? 73.9 kg), Intravenous, ONCE, On Fri12/24/23 at 1830, For 1 dose, - HOLD if systolic BP GREATER than 180 OR diastolic BP GREATER than 105. - If BP exceeds parameter, see hydralazine/labetalol/nicardipine orders. - FLUSH LINE WITH 3-10 mL NORMAL SALINE before and after tenecteplase administration. - Administer as IV bolus over 5 seconds. Maximum dose for ischemic stroke = 25 mg. Not compatible with D5W containing solutions. 1840 ($Given - Provi rafi: Tiara Eduardo RN) PRN Medication Order 12/22/2023 12/23/2023 12/24/2023 hydrALAZINE (APRESOLINE) injection 10 mg(Linked Group 1) 10 mg, Intravenous, EVERY 10 MIN PRN, other, for systolic BP greater than 180 mmHg or diastolic BP greater than 105 mmHg, Administer over 1 Minutes, Starting on Fri12/24/23 at 1826, Use if heart rate LESS than 60 bpm. GOAL: Systolic BP less than 180 mmHg AND Diastolic BP less than 105 mmHg for 3 consecutive readings 5 mins apart. - If BP goal not met after 10 mins, repeat x 1, and notify Provider to initiate niCARdipine infusion as directed. labetalol (NORMODYNE/TRANDATE) injection 10 mg(Linked Group 1) 10 mg, Intravenous, EVERY 10 MIN PRN, other, for systolic BP greater than 180 mmHg or diastolic BP greater than 105 mmHg, Starting on Fri12/24/23 at 1826, Use if heart rate GREATER than or EQUAL to 60 bpm GOAL: Systolic BP less than 180 mmHg AND Diastolic BP less than 105 mmHg for 3 consecutive readings 5 mins apart. - If BP goal not met after 10 mins, repeat x 1, and notify Provider to initiate niCARdipine infusion as directed. Hold if heart rate less than 60 bpm. PROTECT FROM LIGHT. niCARdipine 40 mg in 200 mL NS (CARDENE) infusion 2.5-15 mg/hr (12.5-75 mL/hr), Intravenous, CONTINUOUS PRN, for systolic BP greater than 180 mmHg or diastolic BP greater than 105 mmHg or as directed by Provider, Starting on Fri12/24/23 at 1826, GOAL: systolic BP less than 180 mmHg AND diastolic BP less than 105 mmHg for 3 consecutive readings 5 min apart. Verify with Provider before initiating niCARDipine infusion. Starting Dose: 5 mg/hr. May start at 2.5 mg/hr as directed by provider if concern for excessive reduction in blood pressure. Adjustment Increase/Decrease: 2.5 mg/hr. Adjust every 5 minutes. Max dose/rate: 15 mg/hr. Irritant. To minimize risk of peripheral venous irritation, it is recommended that the site of infusion be changed every 12 hours. Protect from light. sodium chloride 0.9 % infusion at 20 mL/hr, Intravenous, CONTINUOUS PRN, May leave at TKO or saline lock., Starting on Fri12/24/23 at 1826, Until Fri12/24/23 at 2204 Linked Groups Order Group 1: labetalol (NORMODYNE/TRANDATE) injection 10 mgJump to med 10 mg, Intravenous, EVERY 10 MIN PRN, other, for systolic BP greater than 180 mmHg or diastolic BP greater than 105 mmHg, Starting on Fri12/24/23 at 1826, Use if heart rate GREATER than or EQUAL to 60 bpm GOAL: Systolic BP less than 180 mmHg AND Diastolic BP less than 105 mmHg for 3 consecutive readings 5 mins apart. - If BP goal not met after 10 mins, repeat x 1, and notify Provider to initiate niCARdipine infusion as directed. Hold if heart rate less than 60 bpm. PROTECT FROM LIGHT. Or hydrALAZINE (APRESOLINE) injection 10 mgJump to med 10 mg, Intravenous, EVERY 10 MIN PRN, other, for systolic BP greater than 180 mmHg or diastolic BP greater than 105 mmHg, Administer over 1 Minutes, Starting on Fri12/24/23 at 1826, Use if heart rate LESS than 60 bpm. GOAL: Systolic BP less than 180 mmHg AND Diastolic BP less than 105 mmHg for 3 consecutive readings 5 mins apart. - If BP goal not met after 10 mins, repeat x 1, and notify Provider to initiate niCARdipine infusion as directed. documented in this encounter Additional Health Concerns Assessment Noted Time PHQ-9 Depression Total Score: 10 08/07/ 022 4:15 PM CDT documented as of this encounter Care Teams Mechanical Design Engineer Products Relationship Specialty Start Date End Date Nathalie Tate MD [address] [place] [address] PCP - General Family Medicine 12/09/23 Nathalie Tate MD [address] [place], [place] [address] Assigned PCP 06/28/23 documented as of this encounter
--- OUTSIDE RECORDS SUMMARY | 2024-03-04 03:48 | XMS_ITS | Encounter Summary ---
Author Name Unknown Organization [facility] Address [address] [place] [address] Care Team Providers Care Gastroenterology Professor Name Role Phone Nathalie Tate MD Unavailable [phone] Nathalie Tate MD Primary Care Provider [phone] Encounter Details Date Type Department Care Team (Latest Contact Info) Description 12/24/2023 Travel Social History Tobacco Use Types Packs/Day [...] Transportation General On track( 019 3:46 PM DIETETICS DIRECTOR) Yes Nani Sainz LSW Note: Goal Statement: [...] documented as of this encounter Care Teams Gastroenterology Professor Relationship Specialty Start Date End Date Nathalie Tate MD [address] [place] [address] PCP - General Family Medicine 12/09/23 Nathalie Tate MD [address] [place] [address] Assigned PCP 06/28/23 documented as of this encounter
--- OUTSIDE RECORDS SUMMARY | 2024-03-04 03:48 | XMS_ITS | Encounter Summary ---
Author Name Unknown Organization [facility] Address [address] [place] [address] Care Team Providers Care Optical Goods Drill Operator Name Role Phone Nathalie Tate MD Unavailable [phone] Nathalie Tate MD Primary Care Provider [phone] Encounter Details Date Type Department Care Team (Late st Contact Info) Description 12/29/2023 MyC Medical Advice [facility] [address] [place] [address] [address] [place] [address] Conchita Mayo CMA Social History Tobacco Use Types Packs/Day Years [...] Transportation General On track( 019 3:46 PM FINANCE BROKER) Yes Nani Sainz LSW Note: Goal Statement: Caregiver will learn of options for transportation and volunteer respite services. Measure of Success: Caregiver will know if options are available. Supportive Steps to Achieve: CC will send resources via text and caregiver will call. Barriers: recently moved home after rehab. Strengths: Caregiver works, just started with [facility] [employer] services today, 1 Date to Achieve By: January 17, 2019 Patient expressed understanding of goal: caregiver understands. documented as of this encounter Visit Diagnoses Not on filedocumented in this encounter Additional Health Concerns Assessment Noted Time PHQ-9 Depression Total Score: 10 022 4:15 PM CDT documented as of this encounter Care Teams Optical Goods Drill Operator Relationship Specialty Start Date End Date Nathalie Tate MD [address] [place] [address] PCP - General Family Medicine 12/09/23 Nathalie Tate MD [address] [place] [address] Assigned PCP 06/28/23 documented as of this encounter
--- OUTSIDE RECORDS SUMMARY | 2024-03-04 03:48 | XMS_ITS | Encounter Summary ---
Author Name Unknown Organization [facility] Address [address] [place] [address] Care Team Providers Care Outbound Supervisor Name Role Phone Real Tate MD Unavailable [phone] Real Tate MD Primary Care Provider Reason for Referral * Diagnostic Imaging CT Scan (Routine) - Authorized Specialty Diagnoses / Procedures Referred By Lobo t Referred To Contact Diagnoses Pulmonary nodules Procedures CT Chest w/o & w Contrast Clementine Tabares PA-C [address], [address] [place] [address] [place] [address] Referral ID Status Reason Start Date Expiration Date V isits Requested Visits Authorized [id number] Authorized 12/16/2023 12/15/2024 1 1 LLURGICAL ENGINEER * Diagnostic Imaging Other (Routine: Next available opening) - Pending Review Specialty Diagnoses / Procedures Referred By Lobo falk Referred To Contact Diagnoses Pulmonary nodules Clementine Tabares PA-C [address], [address] [place] [address] [place] [address] Referral ID Status Reason Start Date Expiration Date V isits Requested Visits Authorized [id number] Pending Review 12/16/2023 12/15/2024 1 1 Question Answer Preferred Location: External Affiliated Partners External Affiliated Partner Locations: N: [facility] - Various Locations N: [facility] N: [facility] - [facility] Scheduling Instructions: Please call to schedule your appointment Class External referral [5] Comments Prior authorization is required for MRI/MRA, CT, Dexa Scans and Worker's Compensation cases. External Affiliated Partners Please call to schedule your appointment LLURGICAL ENGINEER * Home Health Therapies & Aides (Routine: Next available opening) - Pending Review Specialty Diagnoses / Procedures Referred By Lobo t Referred To Contact Diagnoses Dementia, unspecified dementia severity, unspecified dementia type, unspecified whether behavioral, psychotic, or mood disturbance or anxiety (H) History of CVA (cerebrovascular accident) Health Long Term Unsteady gait when walking Stage 3 chronic kidney disease, unspecified whether stage 3a or 3b CKD (H) Alcoholism (H) Clementine Tabares PA-C [address], [address] [place] [address] [facility] [address] [address] [place] [address] Referral ID Status Reason Start Date Expiration Date V isits Requested Visits Authorized [id number] Pending Review 12/16/2023 12/15/2024 1 1 Question Answer Reason for Referral: [facility], Physical Therapy Physical Therapy Eval and Treat for: Gait Training, Home Safety Assessment [facility] Eval and Treat for: Complex aftercare, Disease management Additional Services Needed: Occupational Therapy, Home Health Aide Occupational Therapy Eval and Treat for: Home Safety, ADLs Is the patient homebound? No I attest that I saw or will see the patient on this date: 12/16/2023 Provider to follow patient REAL TATE [[id number]] Comments Please be aware that coverage of these services is subject to the terms and limitations of your health insurance plan. Call member services at your health plan with any benefit or coverage questions. LLURGICAL ENGINEER Reason for Visit * Reason Comments Hospital F/U The patient was admi tted into [facility] on 12/09/23 for unsteady gait, hematuria and dehydration. He was discharged on 12/11/23 with instructions to follow up with PCP and with neurology. Encounter Details Date Type Department Care Team ([facility] st Contact Info) Description 12/16/2023 3:00 PM METALLURGICAL ENGINEER Office Visit [facility] [address] [place] [address] [place] [phone] Clementine Tabares PA-C [address] [place] [address] Dementia, unspecified dementia severity, unspecified dementia type, unspecified whether behavioral, psychotic, or mood disturbance or anxiety (H) (Primary Dx); Dehydration; Unsteady gait when walking; Hematuria, unspecified type; Nephrolithiasis; Pulmonary nodules; History of CVA (cerebrovascular accident); Stage 3 chronic kidney disease, unspecified whether stage 3a or 3b CKD (H); Alcoholism (H); Health Long Term Social History Tobacco Use Types Packs/Day Years [...] Sign Reading Time Taken Comments Blood Pressure 128/74 12/16/2023 2:52 PM METALLURGICAL ENGINEER Pulse 62 12/16/2023 2:52 PM METALLURGICAL ENGINEER Temperature 36.5 ??C (97.7 ??F) 12/16/2023 2:52 PM CS T Respiratory Rate - - Oxygen Saturation 98% 12/16/2023 2:52 PM METALLURGICAL ENGINEER Inhaled Oxygen Concentration - - Weight 72.1 kg (159 lb) 12/16/2023 2:52 PM METALLURGICAL ENGINEER Height 177.8 cm (5' 10) 12/16/2023 2:52 PM METALLURGICAL ENGINEER per pt Body Mass Index 22.81 12/16/2023 2:52 PM METALLURGICAL ENGINEER documented in this encounter Patient Instructions * Patient Instructions* Clementine Tabares PA-C - 12/16/2023 3:00 PM METALLURGICAL ENGINEER Thanks for coming in today Nathan. Please follow with neurology as instructed. Please schedule an appointment with your urologist to discuss the new kidney stones. I have placed the CT scan of the chest below to [facility], someone will contact you within a week to get scheduled. I have also placed new home care orders for OT/PT and snf. Please let me know if you have any questions or concerns. LLURGICAL ENGINEER documented in this encounter Progress Notes * Clementine Tabares PA-C - 12/16/2023 3:00 PM CST 1. Dementia, unspecified dementia severity, unspecified dementia type, unspecified whether behavioral, psychotic, or mood disturbance or anxiety (H) - Per patient is scheduled to see Dr. Sunny aHyes at the [facility] inthree weeks (unsure of exact date) to discuss a new medication for dementia. - Home Care Referral 2. Dehydration - Improved. Patient is eating and drinking back to his baseline and no longer having any diarrhea since stopping the Donepezil. 3. Unsteady gait when walking - Patient is scheduled to see neurology. I have also placed a home care referral for PT assessment. - Home Care Referral 4. Hematuria, unspecified type - Per patient and his , both deny any signs of gross hematuria or pain. Patient is currently scheduled to see a urologist at [facility] however patient's will cancel this appointment and schedule him to see his regular urologist (Dr. Churchill at [facility]). 5. Nephrolithiasis - Patient will plan to see urology (Dr. Churchill at [facility]). 6. Pulmonary nodules - Order for CT chest placed. - Radiology Referral - CT Chest w/o & w Contrast 7. History of CVA (cerebrovascular accident) - Patient is following with neurology. - Home Care Referral 8. Stage 3 chronic kidney disease, unspecified whether stage 3a or 3b CKD (H) - Home Care Referral 9. Alcoholism (H) - Home Care Referral 10. Health Long Term - Per patient's , patient needs assistance with ADL's and would benefit from PT due to his unsteady gait. I have placed orders for home care assessments for PT, OT, and snf. - Home Care Referral Follow up with neurology and urology. Return to clinic and ER precautions discussed. Clementine Tabares PA-C [facility] Subjective Nathan is a 68 year old, presenting for the following health issues: Hospital F/U (The patient was admitted into [facility] on 12/09/23 for unsteady gait, hematuria and dehydration. He was discharged on 12/11/23 with instructions to follow up with PCP and with neurology./) HPI Hospital Follow-up Visit: Hospital/Snf/IP Rehab Facility: [facility] Date of Admission: 12/09/23 Date of Discharge: 12/11/23 Reason(s) for Admission: unsteady gait, hematuria and dehydration Was your hospitalization related to COVID-19? No Problems taking medications regularly: None Medication changes since discharge: None (stopped donepezil in hospital, added Tylenol PRN) Problems adhering to non-medication therapy: None Summary of hospitalization: [facility] discharge summary reviewed. Nathan presents with his for a hospital follow up. The patient went to the ER on 12/09/23 following a fall while showering on 12/08/23. He did not lose consciousness but was less responsive and lethargic. Patient'swife did note that Nathan was having ongoing diarrhea that started on 12/04/23 and was not eating regularly before his fall. Nathan does have a history of cognitive decline and dementia and follows with Dr. Sunny Hayes at the [facility]. He was recently seen by neurology and started on Donepezil 5 mg daily. In the ER, lab work, EKG, CT scan of head, abdomen, and pelvis were unrem arkable other than renal and ureteral stones noted and possibly a new right upper lobe pulmonary nodule. Patient was admitted from 12/09/23 to 12/11/23 and was instructed to stop Donepezil as this was thought to cause the diarrhea and his fall was likely due to dehydration and lethargy from the diarrhea. Patient was instructed to follow up with neurology for changing his dementia medications, urology for the kidney stones (which he is asymptomatic for), and to get a non-emergent CT of the chestfor evaluation of the pulmonary nodules. He also needs home care orders signed however patient's is unsure if these were all signed for while he was in the hospital. His notes that since his hospitalization his gate has been unsteady and his left foot seems to be bothering him more, whichhas been the case since he's had his stroke. He also has been feeling extra anxious, sleeping more often, paces, and in general his well being has been deteriorating. His notes he needs help with his mobility and also basic ADLs such as getting dressed and brushing his teeth. He is scheduled to see neurology in 3 weeks (patient's is unsure of the exact date) and will schedule an appointment to see his urologist. At this time both Nathan and his deny any signs of hematuria or abdominal pain. Diagnostic Tests/Treatments reviewed. Follow up needed: Patient is already scheduled for a follow up with neurology and will schedule with urology. Other Healthcare Providers Involved in Patient???s Care: [facility] and urology (Dr. Churchill at [facility]) Update since discharge: fluctuating course, see above. Plan of care communicated with patient and patient's . Review of Systems Constitutional, HEENT, cardiovascular, pulmonary, gi and gu systems are negative, except as otherwise noted. Objective BP 128/74 (BP Location: Left arm, Patient Position: Sitting, Cuff Size: Adult Large) Pulse 62 Temp 97.7 ??F (36.5 ??C) (Temporal) Ht 1.778 m (5' 10) Wt 72.1 kg (159 lb) SpO2 98% BMI 22.81 kg/m?? Body mass index is 22.81 kg/m??. Physical Exam GENERAL: sitting comfortably, alert, and no distress HENT: mouth without ulcers or lesions NECK: no adenopathy, no asymmetry, masses, or scars RESP: lungs clear to auscultation - no rales, rhonchi or wheezes CV: regular rate and rhythm, normal S1 S2, no S3 or S4, no murmur, click or rub, no peripheral edema ABDOMEN: soft and non-tender MS: no gross musculoskeletal defects noted, no edema SKIN: no suspicious lesions or rashes NEURO: mentation intact and speech normal PSYCH: mentation appears normal, affect normal Lab work and imaging results from recent hospitalization from 12/09/23 - 12/11/23 reviewed by me. Signed Electronically by: Clementine Tabares PA-C LLURGICAL ENGINEER documented in this encounter Nursing Notes * Tierney Galarza - 12/16/2023 3:00 PM CST Chief Complaint Patient presents with Hospital F/U The patient was admitted into [facility] on 12/09/23 for unsteady gait, hematuria and dehydration. He was discharged on 12/11/23 with instructions to follow up with PCP and with neurology. LLURGICAL ENGINEER documented in this encounter Plan of Treatment Scheduled Orders Name Type Priority Associated Diagnoses Orde r Schedule CT Chest w/o & w Contrast Imaging Routine Pulmonary nodules Ordered: 12/16/2023 Scheduled Referrals Name Type Priority Associated Diagnoses Orde r Schedule Home Care Referral Referral Routine: Next available opening Dementia, unspecified dementia severity, unspecified dementia type, unspecified whether behavioral, psychotic, or mood disturbance or anxiety (H) History of CVA (cerebrovascular accident) Health Long Term Unsteady gait when walking Stage 3 chronic kidney disease, unspecified whether stage 3a or 3b CKD (H) Alcoholism (H) Ordered: 12/16/2023 Radiology Referral Referral Routine: Next available opening Pulmonary nodules Ordered: 12/16/2023 documented as of this encounter Goals Goal Patient Goal Type Associated Problems Recent Progress Patient-Stated? Author Transportation General On track( 019 3:46 PM METALLURGICAL ENGINEER) Yes Nani Sainz LSW Note: Goal Statement: Caregiver will learn of options for transportation and volunteer respite services. Measure of Success: Caregiver will know if options are available. Supportive Steps to Achieve: CC will send resources via text and caregiver will call. Barriers: recently moved home after rehab. Strengths: Caregiver works, just started with [employer] today, 10-28 Date to Achieve By: January 17, 2019 Patient expressed understanding of goal: caregiver understands. documented as of this encounter Visit Diagnoses Diagnosis Dementia, unspecified dementia severity, unspecified dementia type, unspecified whether behavioral, psychotic, or mood disturbance or anxiety (H)- Primary Dehydration Unsteady gait when walking Hematuria, unspecified type Nephrolithiasis Calculus of kidney Pulmonary nodules Other nonspecific abnormal finding of lung field History of CVA (cerebrovascular accident) Transient ischemic attack (TIA), and cerebral infarction without residual deficits Stage 3 chronic kidney disease, unspecified whether stage 3a or 3b CKD (H) Alcoholism (H) Other and unspecified alcohol dependence, unspecified drinking behavior Health Long Term notesas part of the Health Long Term workflow to capture care coordination pl documented in this encounter Additional Health Concerns Assessment Noted Time PHQ-9 Depression Total Score: 10 022 4:15 PM CDT documented as of this encounter Care Teams Outbound Supervisor Relationship Specialty Start Date End Date Real Tate MD [address] [place] [address] PCP - General Family Medicine 12/09/23 Real Tate MD [address] [place] [address] Assigned PCP 06/28/23 documented as of this encounter
--- OUTSIDE RECORDS SUMMARY | 2024-03-04 03:48 | XMS_ITS | Encounter Summary ---
Author Name Unknown Organization [facility] Address [address] [place] [address] Care Team Providers Care Mechanical System Technician Name Role Phone Nathalie Tate MD Unavailable [phone] Nathalie Tate MD Primary Care Provider [phone] Encounter Details Date Type Department Care Team (Latest Contact Info) Description 12/16/2023 Travel Social History Tobacco Use Types Packs/Day [...] Transportation General On track( 019 3:46 PM SUPERINTENDENT OIL FIELD DRILLING) Yes Nani Sainz LSW Note: Goal Statement: [...] as of this encounter Care Teams Mechanical System Technician Relationship Specialty Start Date End Date Nathalie Tate MD [address] [place] [address] PCP - General Family Medicine 12/09/23 Nathalie Tate MD [address] [place] [address] Assigned PCP 06/28/23 documented as of this encounter
--- OUTSIDE RECORDS SUMMARY | 2024-03-04 03:48 | XMS_ITS | Encounter Summary ---
Author Name Unknown Organization [facility] Address [address] [place] [address] Care Team Providers Care Repair Armature Winder Helper Name Role Phone Nathalie Tate MD Unavailable [phone] Nathalie Tate MD Primary Care Provider Reason for Visit * Reason Onset Date Comments Orders 12/16/2023 [facility] Encounter Details Date Type Department Care Team (Late st Contact Info) Description 12/16/2023 Telephone [facility] [address] [place] [address] Nathalie Tate MD [address] [place], [place] [address] Orders ([facility] Care) Social History Tobacco Use Types Packs/Day [...] Telephone Encounter - Eugenie Amador CMA - 12/17/2023 9:48 AM SQL DATA ARCHITECT Clementine Tabares PA-C to Me 12/16/23 4:52 PM Yes, this is ok. Thanks! Informed DATA ARCHITECT * Telephone Encounter - Eugenie Amador CMA - 12/16/2023 2:23 PM SQL DATA ARCHITECT Needing verbal orders for fci 1x a week for 3 weeks, then Every other week and 3 PRN Please advise - [phone] [facility] DATA ARCHITECT documented in this encounter Plan of Treatment Not on file documented as of this encounter Goals Goal Patient Goal Type Associated Problems Recent Progress Patient-Stated? Author Transportation General On track( 019 3:46 PM SQL DATA ARCHITECT) Yes Nani Sainz LSW Note: Goal Statement: [...] documented as of this encounter Care Teams Repair Armature Winder Helper Relationship Specialty Start Date End Date Nathalie Tate MD [address] [place] [address] PCP - General Family Medicine 12/09/23 Nathalie Tate MD [address] [place] [address] [address] Assigned PCP 06/28/23 documented as of this encounter
--- OUTSIDE RECORDS SUMMARY | 2024-03-04 03:48 | XMS_ITS | Encounter Summary ---
Author Name Unknown Organization [facility] Address [address] [place] [address] Care Team Providers Care Nuclear Medicine Supervisor Name Role Phone Nathalie Tate MD Unavailable [phone] Nathalie Tate MD Primary Care Provider [phone] Reason for Visit * Reason Comments Clinic Care Coordination - Post Hospital CVA Encounter Details Date Type Department Care Team (Latest Contact Info) Description 12/29/2023 Care Coordination [facility] [address] [phone] Nathalie Tate MD [address] [place] [address] Clinic Care Coordination - Post Hospital (CVA) Social History Tobacco Use Types Packs/Day Years [...] on file documented as of this encounter Progress Notes * Conchita Mayo CMA - 12/29/2023 1:58 PM CDT Care Coordination Initial Assessment The patient was admitted into [facility] on 12/24/23 for CVA. He was discharged on 12/28/23 with instructions to follow up with neurology and with PCP. PCP: Nathalie Tate Referral Source: ED/IP List Utilization: Last PCP Appt.: 12/16/23 Health Maintenance Reviewed: Yes Current Medical Health Concerns: Please review patients current medical problem list. Patient/Caregiver Understanding: NA-patients did not answer the phone to review Medication Management: NA-pt's Porsche did not answer the phone to review Functional Status: NA-pts Porsche did not answer the phone to review if there are any concerns Current Behavioral Health Concerns: NA-did not answer the phone to be able to review Patient/Caregiver Understanding: NA Psychosocial: NA-patients Porsche did not answer the phone to review if there are any concerns Gaps: NA Resources Given: NA-unable to review if any resources are needed at this time Plan: I attempted to reach the patients Porsche by phone but there was no answer. I did leave a messagefor her on her [employer] to call back to get the patient scheduled for his hospital follow up with Dr. Tate within 7 days of discharge date. I did send them a message on [facility] as well since heis active informing them to call and get scheduled. Will wait for patient to call back to get scheduled. * Conchita Mayo CMA - 12/29/2023 1:58 PM CDT Patient called back and is now scheduled with [facility] on 12/29/23 at 4:45 pm. documented in this encounter Plan of Treatment Not on file documented as of this encounter Goals Goal Patient Goal Type Associated Problems Recent Progress Patient-Stated? Author Transportation General On track( 019 3:46 PM VICE PRESIDENT OF SOFTWARE DEVELOPMENT) Yes Nani Sainz LSW Note: Goal Statement: [...] documented as of this encounter Care Teams Nuclear Medicine Supervisor Relationship Specialty Start Date End Date Nathalie Tate MD [address] [place] [address] PCP - General Family Medicine 12/09/23 Nathalie Tate MD [address] [place] [address] Assigned PCP 06/28/23 documented as of this encounter
--- OUTSIDE RECORDS SUMMARY | 2024-03-04 03:48 | XMS_ITS | Encounter Summary ---
Author Name Unknown Organization [place] Address [address] [place] [id number] Care Team Providers Care Guide Alpine Name Role Phone Nathalie Tate MD Unavailable [phone] Nathalie Tate MD Primary Care Provider Reason for Visit * Reason Comments Clinic Care Coordination - Post Hospital Unsteady gait, hematuria, dehydration Encounter Details Date Type Department Care Team (Latest Contact Info) Description 12/12/2023 Care Coordination [facility] [address] [place] [address] Nathalie Tate MD [address] [id number] Clinic Care Coordination - Post Hospital (Unsteady gait, hematuria, dehydration) Social History Tobacco Use Types Packs/Day Years Used Date Smoking Tobacco: Every Day Cigarettes 0.5 54.4 Started: 10/20/1969 Other Passive Smoke Exposure: Current Smokeless Tobacco: Never Comments:Uses Nicotrol inhal er Alcohol Use Standard Drinks/Week Comments No 0 [...] Progress Notes * Conchita Mayo CMA - 12/12/2023 3:32 PM CST Care Coordination Initial Assessment The patient was admitted into [facility] on 12/09/23 for Unsteady gait, hematuria and dehydration. He was discharged on 12/11/23 with instructions to follow up with PCP and with neurology. PCP: Nathalie Tate Referral Source: ED/IP List Utilization: Last PCP Appt.: 06/20/23 Health Maintenance Reviewed: Yes Current Medical Health Concerns: Please review patients current medical problem list. Patient/Caregiver Understanding: Yes Medication Management: Method of Taking: Family set up in med box Patient has understanding of regimen and is adherent: Yes Medications Reviewed: Yes Functional Status: Transportation: Family provides transportation Cognitive Function : Seeing neurology Current Behavioral Health Concerns: Patients did not have any concerns for this that she wanted to discuss over the phone Patient/Caregiver Understanding: Yes Psychosocial: Living Situation: Lives at home with Gaps: NA Resources Given: patient has home care and needs to have a provider follow for this-neurology and the hospital was able to provide everything else the patient needed at this time Plan: I called the patient and his answered the phone-we do have a PMI to speak with her and I did inform her that we had a call from home care asking to give the ok on some orders. I informed her that we do need to have the patient come in for a hospital follow up in order to follow for this. The stated that she told the hospital that he is doing all of his follow up with neurology but I didinform her that typically they do not follow up for home care orders but that she can reach out to them to see if they are willing to. She stated that she will just schedule the patient with us so that it is all set to go-I was able to get the patient scheduled for next Friday with Sara at 3:00 pm as this was the best day and time that the patients is able to bring him. She had no further questions or concerns at this time. SAWYER documented in this encounter Plan of Treatment Not on file documented as of this encounter Goals Goal Patient Goal Type Associated Problems Recent Progress Patient-Stated? Author Transportation General On track( 019 3:46 PM LOG SAWYER) Yes Nani Sainz LSW Note: Goal Statement: Caregiver will learn of options for transportation and volunteer respite services. Measure of Success: Caregiver will know if options are available. Supportive Steps to Achieve: CC will send resources via text and caregiver will call. Barriers: recently moved home after rehab. Strengths: Caregiver works, just started with [employer] services today, 10-28 Date to Achieve By: January 17, 2019 Patient expressed understanding of goal: caregiver understands. documented as of this encounter Visit Diagnoses Not on filedocumented in this encounter Additional Health Concerns Assessment Noted Time PHQ-9 Depression Total Score: 10 022 4:15 PM CDT documented as of this encounter Care Teams Guide Alpine Relationship Specialty Start Date End Date Nathalie Tate MD [address] [place] [address] PCP - General Family Medicine 12/09/23 Nathalie Tate MD [address] [place] [address] Assigned PCP 06/28/23 documented as of this encounter
--- OUTSIDE RECORDS SUMMARY | 2024-03-04 03:48 | XMS_ITS | Encounter Summary ---
Author Name Unknown Organization [place] Address [address] [place] [address] Care Team Providers Care Procurement Analyst Name Role Phone Nathalie Tate MD Unavailable [phone] Nathalie Tate MD Primary Care Provider [phone] Reason for Visit * Reason Onset Date Comments Home Care/Hospice 12/30/2023 [facility] Updated Home Care Orders 01/05/2024 Encounter Details Date Type Department Care Team (Late st Contact Info) Description 12/30/2023 Telephone [facility] [address] [place] [address] [address] [place] [address] Nathalie Tate MD [address] [place], [place] [id number] Home Care/Hospice ([facility]); Updated Home Care Orders Social History Tobacco Use Types Packs/Day Years [...] encounter Miscellaneous Notes * Telephone Encounter - Felicita Carr CMA - 01/07/2024 9:53 AM CDT Notified Sheela ok for orders. She will continue to monitor pt's BP. He will follow up with psychiatrist on depression. * Telephone Encounter - Nathalie Tate MD - 01/06/2024 3:22 PM CDT Ok for home care, pt/ot. They should contact his psychiatrist, if he is being treated by psychiatry. Be sure he is drinking enough fluids. If at risk for falling or passing out, should be seen. * Telephone Encounter - Felicita Carr CMA - 01/06/2024 3:11 PM CDT Sheela PT from [facility] called asking for PT orders. Seeking 6 PT visits over the next 8 weeks. She also mentioned at the visit today he was orthostatic, sitting BP 138/66 to standing 110/64. He also mentioned he is feeling quite depressed. No suicidal thoughts. His chart states he has a psychiatrist. Please advise Sheela # [phone] Felicita Quinn CMA * Telephone Encounter - Felicita Carr CMA - 01/05/2024 2:54 PM CDT Yasmin from [facility] called asking for ongoing OT orders. Seeking OT 3 visits in the next 5 weeks. I gave verbal ok for orders Yasmin # [phone] * Telephone Encounter - Felicita Carr CMA - 12/31/2023 5:22 PM CDT LM giving verbal ok for orders. * Telephone Encounter - Nathalie Tate MD - 12/31/2023 4:53 PM CDT Ok. * Telephone Encounter - Tierney Galarza - 12/31/2023 3:16 PM CDT Mariposa RN from [facility] called after her home assessment today requesting verbal orders: -PT & OT eval/treat -SN 1x week for 2 weeks, 1x every other week for 2 weeks, with 2 PRN visits Mariposa's phone # [phone] * Telephone Encounter - Tierney Galarza - 12/30/2023 11:52 AM CDT LVM to inform. * Telephone Encounter - Nathalie Tate MD - 12/30/2023 11:27 AM CDT Ok. * Telephone Encounter - Tierney Galarza - 12/30/2023 11:11 AM CDT [facility] called requesting verbal ok to delay start of care to 01/01/24. Pt does have a hospital follow up appointment scheduled with Dr. Tate on 12/31/23 at 4:45. Routing to Dr. Tate for verbal order. Maia (Clinical Smoke Eater) call back # [phone] documented in this encounter Plan of Treatment Not on file documented as of this encounter Goals Goal Patient Goal Type Associated Problems Recent Progress Patient-Stated? Author Transportation General On track( 019 3:46 PM FIRE EATER) Yes Nani Sainz LSW Note: Goal Statement: Caregiver will learn of options for transportation and volunteer respite services. Measure of Success: Caregiver will know if options are available. Supportive Steps to Achieve: CC will send resources via text and caregiver will call. Barriers: recently moved home after rehab. 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 documented as of this encounter Visit Diagnoses Not on filedocumented in this encounter Additional Health Concerns Assessment Noted Time PHQ-9 Depression Total Score: 10 022 4:15 PM CDT documented as of this encounter Care Teams Procurement Analyst Relationship Specialty Start Date End Date Nathalie Tate MD [address] [place] [address] PCP - General Family Medicine 12/09/23 Nathalie Tate MD [address] [place] [address] Assigned PCP 06/28/23 documented as of this encounter
--- OUTSIDE RECORDS SUMMARY | 2024-03-04 03:48 | XMS_ITS | Encounter Summary ---
Author Name Unknown Organization [place] Address [facility]ly [facility] [place] [address] Care Team Providers Care Head Control Clerk Name Role Phone Nathalie Tate MD Unavailable [phone] Nathalie Tate MD Primary Care Provider [phone] Reason for Referral * Home Health Therapies & Aides (Routine: Next available opening) - Pending Review Specialty Diagnoses / Procedures Referred By Lboo falk Referred To Contact Diagnoses Imbalance due to old stroke Kaylee Ortega MD [address] [facility] [address] Referral ID Status Reason Start Date Expiration Date V isits Requested Visits Authorized [id number] Pending Review 12/28/2023 12/27/2024 1 1 Question Answer Reason for Referral: Physical Therapy Physical Therapy Eval and Treat for: Home Safety Assessment, Therapeutic Exercise, Transfer Training Additional Services Needed: Occupational Therapy Occupational Therapy Eval and Treat for: Adaptive Therapy, Home Safety Is the patient homebound? Yes Homebound Status (describe the functional limitations that support this patient is confined to his/her home. Medicaid recipients are not required to be homebound.): Requires assistance of another person or specialized equipment is needed I attest that I saw or will see the patient on this date: 12/28/2023 Provider to follow patient NATHALIE TATE [[id number]] Comments Your provider has ordered home health services. If you have not been contacted within 2 days of your discharge please call the selected Home Care agency listed on your Discharge document. If a Home Care agency is NOT listed, please call [phone]. 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 - 12/28/2023 11:29 AM CDT Hospital Encounter [facility] [address] [phone] Marco Watson DO [address] [id number] Brooke Carlton MD [address] [id number] Cerebrovascular accident (CVA), unspecified mechanism (H) (Primary Dx); Imbalance due to old stroke Discharge Disposition: Home-Health Care Svc Social History Tobacco Use Types Packs/Day Years [...] Sign Reading Time Taken Comments Blood Pressure 126/63 12/28/2023 7:33 AM CDT Pulse 63 12/28/2023 7:33 AM CDT Temperature 36.3 ??C (97.4 ??F) 12/28/2023 7:33 AM CD T Respiratory Rate 18 12/28/2023 7:33 AM CDT Oxygen Saturation 97% 12/28/2023 7:33 AM CDT Inhaled Oxygen Concentration - - Weight 67.5 kg (148 lb 13 oz) 12/25/2023 4:00 AM 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 Hospital Course Jed Alamo was admitted on 12/24/2023. The following problems were addressed during his hospitalization: Ischemic stroke status post TNK vs recrudescence with hx of prior stroke and chronic encephalopathy L sided weakness, slurred speech; resolved Hx prior strokes Chronic dizziness/imbalance, multifactorial including history of prior strokes, history of chronic alcohol. Per Admitting Hospitalist Patient presented to an outside hospital with left facial droop, left sided weakness and slurred speech. He received TNKase at 1842 on December 23. Symptoms improved post thrombolytics. Patient was transferred to [facility] for close monitoring. On evaluation the patient has some mild sided weakness greater than right. And a mild left facial droop. He also reports double vision which improves when he closes his left eye but he reports that this is chronic. Admitted to ICU Blood pressure goal less than 180/105 Avoid anticoagulants and antiplatelets for 24 hours post TNK Follow-up lipid profile; LDL 89 and A1c 5.2. Continue atorvastatin Repeat head CT 24 hours post thrombolytics, stable Head CT, CTA, MRI brain: No acute findings. Echocardiogram: Normal LV and RV function, EF 60-65%, no significant valve dysfunction, see report. -EEG, no seizure activity. Generalized slowing. -Stroke neurology consult, see note. Diagnosis of encephalopathy versus recrudescence. MRI 24 hourspost reported stroke; NEG; started on ASA 81mg Follow-up PT, OT, recommending home health PT/OT -12/26/2023. Feeling well, neurologic focalities improved however feels a general sense of positionaldizziness. Orthostatic. On no antihypertensives. No signs of bleeding. Echo with normal LV and RV function. Give trial to 1 L fluids. Check BMP and CBC in AM stable. 12/26 - 08/12. Patient with history of chronic dizziness and imbalance, likely multifactorial including history of stroke, chronic alcohol. Appears at baseline. at home and when she is away has aide MWF. Therapy recommending home health PT/OT. Follow-up PCP on hospital discharge. Chronic medical conditions CKD stage III-creatinine has been variable in the past but appears to be close to his baseline. Admission CR 1.38, follow-up 1.27, appears at baseline. 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 Home health OT PT on hospital discharge History of prior strokes with residual left facial droop History of alcohol abuse now in remission History of tobacco use Code Status Full Code Primary Care Physician Nathalie Tate Physical Exam Temp: 97.4 ??F (36.3 ??C) Temp src: Oral BP: 126/63 Pulse: 63 Resp: 18 SpO2: 97 % O2 Device: None (Room air) Vitals: 12/25/23 0400 Weight: 67.5 kg (148 lb 13 oz) General/Constitutional: NAD, awake, calm, cooperative Chest/Respiratory: Respirations nonlabored room air Cardiovascular: regular, no murmur appreciated. LE edema none Gastrointestinal/Abdomen: soft, nontender, Neuro. 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 Psych oriented, affect calm. Discharge Disposition Discharged to home with home health PT/OT, continue DRAINAGE ENGINEER MWF Condition at discharge: Fair Consultations This Hospital Stay NEUROLOGY IP STROKE CONSULT SPEECH PHARMACOLOGIST ADULT IP CONSULT PHARMACY IP CONSULT PHARMACY IP CONSULT PHARMACY IP CONSULT PHYSICAL THERAPY ADULT IP CONSULT OCCUPATIONAL THERAPY ADULT IP CONSULT REHAB ADMISSIONS LIAISON IP CONSULT CARE MANAGEMENT / SOCIAL WORK IP CONSULT SMOKING CESSATION PROGRAM IP CONSULT Time Spent on this Encounter Kaylee Merchant MD, personally saw the patient today and spent greater than 30 minutes discharging this patient discussing discharge plans with Patient, Nursing and Clinical Application Consultant, completing [id number] for home health care PT/OT, completing discharge orders, medications or follow-up. Discharge Orders Home Care Referral Reason for your hospital stay Presented with concerns of stroke. Follow-up and recommended labs and tests Follow up with primary care provider, Nathalie Tate, within 7 days for hospital follow- up. The following labs/tests are recommended: BMP and CBC Home Health Care PT and OT will call for appointment within your home. Continue aide to come into your home MWF to assist. Activity Your activity upon discharge: activity as tolerated with assistance due to chronic dizziness and Activities per OT/PT recommendations Diet Follow this diet upon discharge: Regular Diet Adult. Encourage to eat and take in fluids. Discharge Medications Current Discharge Medication List CONTINUE these medications which have CHANGED Details atorvastatin (LIPITOR) 80 MG tablet Take 1 tablet (80 mg) by mouth every evening NOTE this is an INCREASE in dose from prior to hospital. Follow-up with PCP. Future refills by PCP Dr. Nathalie Tate with phone number [phone]. Qty: 30 tablet, Refills: 0 Associated Diagnoses: Cerebrovascular accident (CVA), unspecified mechanism (H) disulfiram (ANTABUSE) 250 MG tablet Take 1 tablet (250 mg) by mouth daily NOTE this is an DECREASE in dose from prior to hospital. CONTINUE these medications which have NOT CHANGED Details acetaminophen (TYLENOL) 325 MG tablet Take 2 tablets (650 mg) by mouth every 4 hours as needed for mild pain or other (and adjunct with moderate or severe pain or per patient request) Associated Diagnoses: Unsteady gait when walking aspirin 81 MG EC tablet Take 81 mg by mouth every evening cyanocobalamin (CYANOCOBALAMIN) 1000 MCG/ML injection Inject 1 mL into the muscle every 30 days escitalopram (LEXAPRO) 20 MG tablet Take 60 mg by mouth every evening Multiple Vitamins-Iron (TAB-A-CATRACHO/IRON) TABS Take 1 capsule by mouth daily Qty: 100 tablet, Refills: 3 Associated Diagnoses: Alcoholism (H) phenylephrine (LEATHA-SYNEPHRINE) 1 % nasal spray [place] 1 drop into both nostrils daily tamsulosin (FLOMAX) 0.4 MG capsule Take 0.8 mg by mouth every evening thiamine (B-1) 100 MG tablet Take 100 mg by mouth every evening vitamin D2 (ERGOCALCIFEROL) 41501 units (1250 mcg) capsule Take 1 capsule by mouth once a week Qty: 12 capsule, Refills: 1 Associated Diagnoses: Alcoholism (H) STOP taking these medications ibuprofen (ADVIL/MOTRIN) 600 MG tablet Comments: Reason for Stopping: Allergies Allergies Allergen Reactions Donepezil Diarrhea Hospitalized for diarrhea/dehydration Sulfa Antibiotics Rash Data Most Recent 3 CBC's: Recent Labs Lab Test 12/25/2352012/24/23174112/10/23 0552 WBC 9.9 10.5 6.8 HGB 12.2* 12.9* 11.8* MCV 89 90 89 PLT 223 240 155 Most Recent 3 BMP's: Recent Labs Lab Test 12/28/23 0820 12/28/23 0008 12/27/23 0746 12/25/23 0849 12/25/23 0521 12/24/23 2309 12/24/23 1742 NA -- -- 140 -- 140 -- 140 POTASSIUM -- -- 4.8 -- 4.0 -- 4.2 CHLORIDE -- -- 108* -- 103 -- 104 CO2 -- -- 23 -- 24 -- 26 BUN -- -- 21.5 -- 16.7 -- 18.6 CR -- -- 1.25* -- 1.27* -- 1.38* ANIONGAP -- -- 9 -- 13 -- 10 COREY -- -- 8.9 -- 9.0 -- 9.4 GLC 99 102* 96 < > 117* < > 96 < > = values in this interval not displayed. Most Recent 2 LFT's: Recent Labs Lab Test 12/24/23174112/10/23 0552 AST 24 16 ALT 55 27 ALKPHOS 131 114 BILITOTAL 0.3 0.3 Most Recent Cholesterol Panel: Recent Labs Lab Test 12/24/232327 CHOL 166 LDL 89 HDL 49 TRIG 138 Most Recent TSH, T4 and A1c Labs: Recent Labs Lab Test 12/24/23232701/19/222003 TSH -- 1.00 A1C 5.2 -- documented in this encounter Discharge Instructions * Discharge Instructions* Bryanna Gaming RN - 12/28/2023 11:10 AM CDT Your risk factors for stroke or TIA (transient ischemic attack): Your Risk Factors Your Results Goals [] High blood pressure BP: 126/63 (12/28/23 0733) Less than 120/80 [x] Cholesterol Total 12/24/2023: 166 mg/dL Less than 150 Triglycerides 12/24/2023: 138 mg/dL Less than 150 LDL 12/24/2023: 89 mg/dL Less than 70 HDL 12/24/2023: 49 mg/dL Greater than 40 (men) Greater than 50 (women) [] Diabetes A1C 12/24/2023: 5.2 % Less than 5.7 [] Atrial fibrillation Atrial fibrillation noted on cardiac monitoring Manage per physician orders [] Smoking/tobacco use Tobacco Use Smoking status: Former Packs/day: 0.50 Years: 30.00 Additional pack years: 0.00 Total pack years: 15.00 Types: Cigarettes, Other Start date: 10/20/1969 Passive exposure: Past Smokeless tobacco: Never Tobacco comments: Recently stopped 12/09/23 Quit smoking and tobacco [] Overweight Body mass index is 21.35 kg/m??. Less than 25 Other risk factors include: carotid (neck) artery disease, other heart diseases, prior stroke or TIA, poor diet, lack of exercise, and excessive alcohol consumption. [] Written stroke educational materials given to patient and family including: - Learning about BE FAST: Stroke Warning Signs and Learning about Risk Factors for Stroke (Healthwise) - Understanding Stroke: [employer] After a Stroke (FOD #391553) Know the warning signs and symptoms of stroke: BE FAST B = Balance loss E = Eyesight changes F = Facial droop or numbness A = Arm or leg weakness S = Speech difficulty, slurred speech T = Time to call 911 for help * Attachments The following attachments cannot be sent through Care Everywhere. * Disulfiram Oral Tablet (DISULFIRAM - ORAL) ([place]) documented in this encounter Medications at Time of Discharge Medication Sig Dispensed Refills Start Date End Date aspirin 81 MG EC tablet Take 81 mg by mouth every morning cyanocobalamin (CYANOCOBALAMIN) 1000 MCG/ML injection Inject 1 mL into the muscle every 30 days escitalopram (LEXAPRO) 20 MG tablet Take 60 mg by mouth every evening 01/31/2022 Multiple Vitamins-Iron (TAB-A-CATRACHO/IRON) TABSIndications:Alcoho lism (H) Take 1 capsule by mouth daily 100 tablet 3 06/03/2019 phenylephrine (LEATHA-SYNEPHRINE) 1 % nasal spray [place] 1 drop into both nostrils daily as needed for congestion tamsulosin (FLOMAX) 0.4 MG capsule Take 0.8 mg by mouth every evening 03/17/2020 thiamine (B-1) 100 MG tablet Take 100 mg by mouth every evening vitamin D2 (ERGOCALCIFEROL) 51380 units (1250 mcg) capsuleIndications:Alc oholism (H) Take 1 capsule by mouth once a week 12 capsule 1 10/06/2023 acetaminophen (TYLENOL) 325 MG tabletIndications:Unst kimberly gait when walking Take 2 tablets (650 mg) by mouth every 4 hours as needed for mild pain or other (and adjunct with moderate or severe pain or per patient request) 12/11/2023 12/31/2023 atorvastatin (LIPITOR) 80 MG tabletIndications:Cere brovascular accident (CVA), unspecified mechanism (H) Take 1 tablet (80 mg) by mouth every evening NOTE this is an INCREASE in dose from prior to hospital. Follow-up with PCP. Future refills by PCP Dr. Nathalie Tate with phone number [phone]. 30 tablet 12/28/2023 12/31/2023 disulfiram (ANTABUSE) 250 MG tablet Take 1 tablet (250 mg) by mouth daily NOTE this is an DECREASE in dose from prior to hospital. 12/28/2023 12/31/2023 documented as of this encounter Progress Notes * Bryanna Gaming RN - 12/28/2023 11:25 AM CDT Pt discharged home with at 1125 via wheel chair transport. Pt and verbalized understanding of discharge instructions and necessary follow up. Pt and provided with stroke book and stroke QR code sheet for education videos. Pt is discharging with home health care OT and PT. Discharge medications sent home: Atorvastatin. BP 126/63 (BP Location: Right arm) Pulse 63 Temp 97.4 ??F (36.3 ??C) (Oral) Resp 18 Wt 67.5kg (148 lb 13 oz) SpO2 97% BMI 21.35 kg/m?? Pt is A&Ox4, able to make needs known. On RA, lung sounds clear. Voiding without difficulty. Bowel sounds active, last bm on 12/26 per Pt statement. Pt denies pain. Telemetry resulted NSR. Neuro's are slight L droop, chronic numbness and tingling in toes, generalized weakness, and chronic double vision which improves with glassess. * Kaylee Ortega MD - 12/27/2023 2:50 PM CST [facility] Hospitalist Progress Note Assessment & Plan Jed Alamo is a 68 year old male with a past medical history of CKD stage III, dyslipidemia,BPH, prior strokes, dementia, history of alcohol and tobacco abuse presents to hospital with a stroke. Ischemic stroke status post TNK L sided weakness, slurred speech; improved Hx prior strokes Imbalance;dizziness Per Admitting Hospitalist Patient presented to an outside hospital with left facial droop, left sided weakness and slurred speech. He received TNKase at 1842 on December 23. Symptoms significantly improved post thrombolytics. Patient was transferred to [facility] for close monitoring. On evaluation the patient has some mild sided weakness greater than right. And a mild left facial droop. He also reports double vision which improves when he closes his left eye but he reports that this is chronic. Admitted to ICU Blood pressure goal less than 180/105 Avoid anticoagulants and antiplatelets for 24 hours Follow-up lipid profile; LDL 89 and A1c 5.2. Continue atorvastatin Repeat head CT 24 hours post thrombolytics Head CT, CTA, MRI brain: No acute findings. Echocardiogram: Normal LV and RV function, EF 60-65%, no significant valve dysfunction, see report. -EEG, no seizure activity. Generalized slowing. -Stroke neurology consult, see note. Diagnosis of encephalopathy versus recrudescence. MRI 24 hourspost reported stroke; NEG; started on ASA 81mg Follow-up PT, OT, speech, -12/26/2023. Feeling well, neurologic focalities improved however feels a general sense of positionaldizziness. Orthostatic. On no antihypertensives. No signs of bleeding. Echo with normal LV and RV function. Give trial to 1 L fluids. BMP stable renal function -12/27/2023, continues to complain of positional dizziness. Observed getting out of bed, extreme imbalance needed contact-guard assist to prevent fall. No other neurologic focality. No orthostatic BP per nursing. PT assessment including fall risk, use of wheeled walker which would be new.. Chronic medical conditions CKD stage III-creatinine has been variable in the past but appears to be close to his baseline. Admission CR 1.38, follow-up 1.27, appears near baseline. 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 OT ordered History of prior strokes with residual left facial droop History of alcohol abuse now in remission History of tobacco use DVT Prophylaxis: Pneumatic Compression Devices Code Status: Full Code Expected Discharge Date: 1 day pending clinical improvement severe positional imbalance, safe discharge Kaylee Ortega MD Text Page (7am - 6pm, M-F) I spent 35 minutes total time in management of care today 12/27/2023 reviewing labs, medications, interdisciplinary notes; and completing documentation of encounter and orders with Care Management including counseling/discussion withthe Patient and by home regarding positional lightheadedness/dizziness and fall risks and Coordinating Care and plan with Nursing, Therapies regarding positional lightheadedness and fall risk specialists, Stroke Neurology regarding management and surveillance, asabove Interval History Focal right-sided weakness improved, no further slurring of speech, eating. Continued sense of positional dizziness, noted severe imbalance requiring contact-guard assist on standing today. No antihypertensive. No signs of bleeding. SH: No tobacco. Lives with , retired from [employer]. ROS: Complete ROS negative except as above. -Data reviewed today: I reviewed all new labs and imaging results over the last 24 hours. Physical Exam Temp: 97.6 ??F (36.4 ??C) Temp src: Oral BP: 122/56 Pulse: 76 Resp: 16 SpO2: 96 % O2 Device: None (Room air) Vitals: 12/25/23 0400 Weight: 67.5 kg (148 lb 13 oz) General/Constitutional: NAD, awake, calm, cooperative Chest/Respiratory: Respirations nonlabored room air Cardiovascular: regular, no murmur appreciated. LE edema none Gastrointestinal/Abdomen: soft, nontender, Neuro. 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 Psych oriented, affect calm. Medications - MEDICATION INSTRUCTIONS - aspirin 81 mg Oral Daily atorvastatin 80 mg Oral QPM disulfiram 250 mg Oral Daily escitalopram 60 mg Oral QPM sodium chloride (PF) 3 mL Intracatheter Q8H [START ON 12/28/2023] tamsulosin 0.4 mg Oral Daily Data Recent Labs Lab 12/27/23 0746 12/26/23 2208 12/26/23 1725 12/25/23 0849 12/25/23 0521 12/24/23 2309 12/24/23 1742 WBC -- -- -- -- 9.9 -- 10.5 HGB -- -- -- -- 12.2* -- 12.9* MCV -- -- -- -- 89 -- 90 PLT -- -- -- -- 223 -- 240 INR -- -- -- -- 1.00 -- 0.95 NA 140 -- -- -- 140 -- 140 POTASSIUM 4.8 -- -- -- 4.0 -- 4.2 CHLORIDE 108* -- -- -- 103 -- 104 CO2 23 -- -- -- 24 -- 26 BUN 21.5 -- -- -- 16.7 -- 18.6 CR 1.25* -- -- -- 1.27* -- 1.38* ANIONGAP 9 -- -- -- 13 -- 10 COREY 8.9 -- -- -- 9.0 -- 9.4 GLC 96 109* 88 < > 117* < > 96 ALBUMIN -- -- -- -- -- -- 4.4 PROTTOTAL -- -- -- -- -- -- 7.0 BILITOTAL -- -- -- -- -- -- 0.3 ALKPHOS -- -- -- -- -- -- 131 ALT -- -- -- -- -- -- 55 AST -- -- -- -- -- -- 24 < > = values in this interval not displayed. No results found for this or any previous visit (from the past 24 hour(s)). 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 Ischemic stroke status post TNK L sided weakness, slurred speech; improved Hx prior strokes Per Admitting Hospitalist Patient presented to an outside hospital with left facial droop, left sided weakness and slurred speech. He received TNKase at 1842 on December 23. Symptoms significantly improved post thrombolytics. Patient was transferred to [facility] for close monitoring. On evaluation the patient has some mild sided weakness greater than right. And a mild left facial droop. He also reports double vision which improves when he closes his left eye but he reports that this is chronic. Admitted to ICU Blood pressure goal less than 180/105 Avoid anticoagulants and antiplatelets for 24 hours Follow-up lipid profile; LDL 89 and A1c 5.2. Continue atorvastatin Repeat head CT 24 hours post thrombolytics Head CT, CTA, MRI brain: No acute findings. Echocardiogram: Normal LV and RV function, EF 60-65%, no significant valve dysfunction, see report. -EEG, no seizure activity. Generalized slowing. -Stroke neurology consult, see note. Diagnosis of encephalopathy versus recrudescence. MRI 24 hourspost reported stroke; NEG; started on ASA 81mg Follow-up PT, OT, speech, -12/26/2023. Feeling well, neurologic focalities improved however feels a general sense of positionaldizziness. Orthostatic. On no antihypertensives. No signs of bleeding. Echo with normal LV and RV function. Give trial to 1 L fluids. Check BMP and CBC in AM. Chronic medical conditions CKD stage III-creatinine has been variable in the past but appears to be close to his baseline. Admission CR 1.38, follow-up 1.27, appears near baseline. 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 OT ordered History of prior strokes with residual left facial droop History of alcohol abuse now in remission History of tobacco use DVT Prophylaxis: Pneumatic Compression Devices Code Status: Full Code Expected Discharge Date: 1-2 days pending IVF, therapy assessment regarding safe discharge. Kaylee Ortega MD Text Page (7am - 6pm, M-F) Total time 50 minutes for today 12/26/2023 : time consisted of the following, examination of patient,review of records including labs, imaging results, medications, interdisciplinary notes and completing documentation and orders. Care Management included counseling/discussion with Patient and by phone regarding current condition including right-sided weakness and dizziness and Coordination ofCare time with Nursing and Specialists, Stroke neurology regarding care plan, management and surveillance, as above. Interval History Feels well, right-sided weakness improved, no further slurring of speech. Reports a sense of dizziness. Nursing notes orthostatic BP. No antihypertensive. No signs of bleeding. SH: No tobacco. Lives with , retired from [employer]. ROS: Complete ROS negative except as above. -Data reviewed today: I reviewed all new labs and imaging results over the last 24 hours. Physical Exam Temp: 97.4 ??F (36.3 ??C) Temp src: Oral BP: 129/68 Pulse: 92 Resp: 16 SpO2: 97 % O2 Device: None (Room air) Vitals: 12/25/23 0400 Weight: 67.5 kg (148 lb 13 oz) General/Constitutional: NAD, awake, calm, cooperative Chest/Respiratory: Respirations nonlabored room air Cardiovascular: regular, no murmur appreciated. LE edema none Gastrointestinal/Abdomen: soft, nontender, Neuro. Gross motor tested, L hand building construction professor strength 4/5; LHD; ambuation not tested Psych oriented, affect calm. Medications - MEDICATION INSTRUCTIONS - aspirin 81 mg Oral Daily atorvastatin 80 mg Oral QPM sodium chloride (PF) 3 mL Intracatheter Q8H sodium chloride 0.9% 1,000 mL Intravenous Once tamsulosin 0.8 mg Oral Daily Data Recent Labs Lab 12/26/23 1209 12/26/23 0741 12/26/23 0156 12/25/23 0849 12/25/23 0521 12/24/23 2309 12/24/23 1742 WBC -- -- -- -- 9.9 -- 10.5 HGB -- -- -- -- 12.2* -- 12.9* MCV -- -- -- -- 89 -- 90 PLT -- -- -- -- 223 -- 240 INR -- -- -- -- 1.00 -- 0.95 NA -- -- -- -- 140 -- 140 POTASSIUM -- -- -- -- 4.0 -- 4.2 CHLORIDE -- -- -- -- 103 -- 104 CO2 -- -- -- -- 24 -- 26 BUN -- -- -- -- 16.7 -- 18.6 CR -- -- -- -- 1.27* -- 1.38* ANIONGAP -- -- -- -- 13 -- 10 COREY -- -- -- -- 9.0 -- 9.4 GLC 97 96 91 < > 117* < > 96 ALBUMIN -- -- -- -- -- -- 4.4 PROTTOTAL -- -- -- -- -- -- 7.0 BILITOTAL -- -- -- -- -- -- 0.3 ALKPHOS -- -- -- -- -- -- 131 ALT -- -- -- -- -- -- 55 AST -- -- -- -- -- -- 24 < > = values in this interval not displayed. Recent Results (from the past 24 hour(s)) CT Head w/o Contrast - 24 hrs after Stroke Narrative EXAM: CT HEAD W/O CONTRAST LOCATION: [facility] DATE: 12/25/2023 INDICATION: Stroke follow-up COMPARISON: Brain MRI dated 12/25/2023 TECHNIQUE: Routine CT Head without IV contrast. Multiplanar reformats. Dose reduction techniques were used. FINDINGS: INTRACRANIAL CONTENTS: No intracranial hemorrhage, extraaxial collection, or mass effect. No CT evidence of acute infarct. Moderate presumed chronic small vessel ischemic changes. Moderate generalized volume loss. No hydrocephalus. Multifocal chronic infarcts are better appreciated on the prior MRI. VISUALIZED ORBITS/SINUSES/MASTOIDS: No intraorbital abnormality. Mild mucosal thickening scattered about the paranasal sinuses. Scattered fluid/membrane thickening in the mastoid air cells bilaterally. BONES/SOFT TISSUES: No acute abnormality. Impression IMPRESSION: 1. No CT evidence for acute intracranial process. 2. Stable chronic changes as above. ARD MACHINE OPERATOR * Heike Hill SLP - 12/26/2023 12:17 PM CST Acknowledged PEST CONTROL WORKER HELPER order and reviewed chart. Patient brought to ED with concern for new stroke with dysarthria and left sided facial weakness greater than residual weakness from previous stroke. PEST CONTROL WORKER HELPER consulted with patient. MRI negative and speech deficits have resolved. Patient is reporting tolerance of regular diet with thin liquids and passed nursing dysphagia screen. Speech is clear and left cheek retraction is minimally reduced, tongue protrusion is deviated on 50% of trials to left and only minimally. Recommend defer formal PEST CONTROL WORKER HELPER intervention at this time. Will complete inpatient order. ARD MACHINE OPERATOR * Crista Garibay RN - 12/26/2023 12:06 PM CST [facility] Patient is currently receiving services with [facility]. The patient is currently receiving RN services. Patient's clinical case manager and home health team have been notified that patient is under inpatient status [facility] Liaison will continue to follow patient during stay. Please provide orders to resume home care at time of discharge if appropriate. ARD MACHINE OPERATOR * Charlotte Guerra MD - 12/26/2023 9:57 AM CST BRIEF VASCULAR NEUROLOGY SIGN OFF NOTE MRI negative for stroke. 24 hour post tnk negative for any bleed. sEEG negative for seizures. Only showed generlized slowing. No further stroke work up needed. Patient likely had encephalopathy from SILVANO vs fluctuating dementia vs unwitnessed seizure/postictal state. Stroke team will sign off. Please consult General Neurology if there are ongoing concerns of encephalopathy. Charlotte Guerra MD Vascular Neurology Fellow Associated attestation - Krys Whipple MD - 12/29/2023 8:33 PM CDT Attending Physician Addendum Patient was discussed on 12/26/2023 with the fellow on the vascular neurology service, Dr Guerra. Agree with the note below including the assessment, and plan. Krys Whipple MD, Msc, GHISLAINE, FAAN Hazmat Cdl A Driver of Neurology [facility] 12/29/2023 8:32 PM To page me or covering stroke neurology steam fitter, click here: [employer] Choose Chartered Financial Analyst tab at top, then search dropdown box for Neurology Adult & press Enter, lookfor Neuro ICU/Stroke * Sherri Chan OTR - 12/25/2023 5:10 PM CST 12/25/23 1434 Appointment Info Signing Clinician's Name / Credentials (OT) Sherri Chan OTR/L Living Environment People in Home spouse Current Living Arrangements house Home Accessibility stairs within home Number of Stairs, Within Home, Primary seven Stair Railings, Within Home, Primary railings safe and in good condition Transportation Anticipated family or friend will provide Living Environment Comments Pt lives in multi level home w/ , 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 Instrumental Activities of Daily Living (IADL) IADL Comments Pt enjoys wood working, does not drive ( does all the driving), has a pill box that he sets up for the weekn General Information Onset of Illness/Injury or Date of Surgery 12/24/23 Referring Physician Kaylee Ortega MD Patient/Family Therapy Goal Statement (OT) return home Additional Occupational Profile Info/Pertinent History of Current Problem Jed Alamo is a 68 year old male with a past medical history of CKD stage III, dyslipidemia, BPH, prior strokes, dementia, history of alcohol and tobacco abuse presents to hospital with a stroke. Ischemic stroke status post TNK L sided weakness, slurred speech; improved Hx prior strokes ' Existing Precautions/Restrictions fall General Observations and Info dementia at baseline Cognitive Status Examination Orientation Status orientation to person, place and time Cognitive Status Comments pt is slow to respond at time, gives short 1-2 word responses, per chart dementia at baseline. repeated commands Visual Perception Impact of Vision Impairment on Function (Vision) no obvious deficits noted Range of Motion Comprehensive Comment, General Range of Motion BUE WFL Strength Comprehensive (MMT) Comment, General Manual Muscle Testing (MMT) Assessment BUE WFL Coordination Coordination Comments some shakiness, pt reports this is normal, more in RUE than L noted. Bed Mobility Comment (Bed Mobility) SBA Transfers Transfer Comments Min A -CGA Balance Balance Comments impaired, use of FWW CGA short shuffled steps Activities of Daily Living BADL Assessment/Intervention lower body dressing Lower Body Dressing Assessment/Training Comment, (Lower Body Dressing) Min A, cued to remove socks although pt just returned himself supinein bed. Clinical Impression Criteria for Skilled Therapeutic Interventions Met (OT) Yes, treatment indicated OT Diagnosis impaired ADL/IADL IND OT Problem List-Impairments impacting ADL problems related to;activity tolerance impaired;balance;cognition;strength Assessment of Occupational Performance 3-5 Performance Deficits Identified Performance Deficits cognition, dressing, bathing, home mgmt, activity tolerance, safetyawareness Planned Therapy Interventions (OT) ADL retraining;IADL retraining;strengthening;home program guidelines;progressive activity/exercise;risk factor education;fine motor coordination training;neuromuscular re-education Clinical Decision Making Complexity (OT) detailed assessment/moderate complexity OT Total Evaluation Time OT Eval, Moderate Complexity Minutes (90688) 9 OT Goals Therapy Frequency (OT) Daily OT Predicted Duration/Target Date for Goal Attainment 01/04/24 OT Goals Hygiene/Grooming;Upper Body Dressing;Lower Body Dressing;Toilet Transfer/Toileting;Cognition;OT Goal 1 OT: Hygiene/Grooming modified independent OT: Upper Body Dressing Modified independent OT: Lower Body Dressing Modified independent OT: Toilet Transfer/Toileting Modified independent;cleaning and garment management OT: Cognitive Patient/caregiver will verbalize understanding of cognitive assessment results/recommendations as needed for safe discharge planning OT: Goal 1 pt will demonstrate improved safety and cognition by answering 100% accuracy on home safety questions. Interventions Interventions Quick Adds Self-Care/Home Management Self-Care/Home Management Self-Care/Home Mgmt/ADL, Compensatory, Meal Prep Minutes (23370) 12 Symptoms Noted During/After Treatment (Meal Preparation/Planning Training) dizziness Treatment Detail/Skilled Intervention OT: Pt SBA bed mobility, increased processing time noted, Maribel STS to FWW, VC for hand placement. Dizziness noted upon standing, returned to sitting and assessed BP in sitting > standing and later supine pt has positive ortho statics (see Flowsheet for details, 140s > 120s > 90s systolic in positional changes); ambulates min A w/ fWW into BR, Min A and assist for managing FWW over toilet, pt stood for urination at sink but noted to urinate on sockand floor, pt appears to not acknowlege this, returned to bed and instructed to remove socks for therapist to provide fresh pair although pt just returned supine in bed. End of session bed alarm on and all needs within reach. OT Discharge Planning OT Plan standing g/h, formal cog assessment, med task, home safety questions, LB dsg with clothing gathering OT Discharge Recommendation (DC Rec) home with home care occupational therapy;Transitional Care Facility OT Rationale for DC Rec Pt functioning below baseline, unclear cognitive or mobility baseline as not present on eval. Expect pt may progress to home w/ supervision and assist w/ IADLs vs needingTCU prior to returning home. At this time pt is Ax1 for safety, demonstrating lack of insight and awareness. Total Session Time Timed Code Treatment Minutes 12 Total Session Time (sum of timed and untimed services) 21 Psychosocial Support Trust Relationship/Rapport care explained;choices provided ARD MACHINE OPERATOR * Beatrice Myers, PT - 12/25/2023 2:49 PM CST 12/25/23 0838 Appointment Info Signing Clinician's Name / Credentials (PT) Beatrice Myers, PT, DPT Living Environment People in Home spouse Current Living Arrangements house Home Accessibility stairs within home Number of Stairs, Within Home, Primary seven Stair Railings, Within Home, Primary railings safe and in good condition Transportation Anticipated family or friend will provide Living Environment Comments '4 level split level'. he is retired, spouse works Self-Care Usual Activity Tolerance good Current Activity Tolerance moderate Equipment Currently Used at Home walker, rolling Fall history within last six months yes Number of times patient has fallen within last six months 4 Activity/Exercise/Self-Care Comment Reports the PT at most recent admission recommended he uses a FWW for ambulation. General Information Onset of Illness/Injury or Date of Surgery 12/24/22 Referring Physician Brooke Carlton MD Patient/Family Therapy Goals Statement (PT) to feel better Pertinent History of Current Problem (include personal factors and/or comorbidities that impact thePOC) Jed Alamo is a 68 year old male with a past medical history of CKD stage III, dyslipidemia, BPH, prior strokes, dementia, history of alcohol and tobacco abuse presents to hospital with a stroke. Ischemic stroke status post TNK L sided weakness, slurred speech; improved Hx prior strokes ' Existing Precautions/Restrictions fall Weight-Bearing Status - LLE full weight-bearing Weight-Bearing Status - RLE full weight-bearing Cognition Orientation Status (Cognition) oriented to;person;place;situation;time Cognitive Status Comments needs time to answer questions; possible confusion defer to OT Pain Assessment Patient Currently in Pain No Integumentary/Edema Integumentary/Edema no deficits were identifed Posture Posture Forward head position Range of Motion (ROM) Range of Motion ROM is WFL Strength (Manual Muscle Testing) Strength Comments decreased L LE strength, 3+/5 compared to 4-5/5 in R LE. per chart, L LE was alsoweak at previous admission 12/10/23 Bed Mobility Comment, (Bed Mobility) SBA supine to seated EOB, dizzy in supine and increased in upright- did notaffect static seated balance Transfers Comment, (Transfers) CGA to stand without device, unsteady at first improved within a minute. reports dizziness Gait/Stairs (Locomotion) Comment, (Gait/Stairs) CGA without device; L LE noted externally rotated and with decreased toe clearance. pt unable to adjust with prompting Balance Balance Comments decreased dynamic balance; affected by decreased L LE strength Sensory Examination Sensory Perception Comments patient reports neuropathy in top of feet? difficult for pt to describe Clinical Impression Criteria for Skilled Therapeutic Intervention Yes, treatment indicated PT Diagnosis (PT) impaired functional mobility Influenced by the following impairments decreased strength, activity tolerance, balance, cognition Functional limitations due to impairments bed mobility, transfers, ambulation, stairs Clinical Presentation (PT Evaluation Complexity) evolving Clinical Presentation Rationale clinical judgement Clinical Decision Making (Complexity) moderate complexity Planned Therapy Interventions (PT) balance training;bed mobility training;gait training;home exercise program;neuromuscular re-education;patient/family education;ROM (range of motion);stair training;strengthening;transfer training;progressive activity/exercise;risk factor education;home program je hope Risk & Benefits of therapy have been explained evaluation/treatment results reviewed;care plan/treatment goals reviewed;risks/benefits reviewed;current/potential barriers reviewed;participants voiced agreement with care plan;participants included;patient PT Total Evaluation Time PT Eval, Low Complexity Minutes (08705) 13 Physical Therapy Goals PT Frequency Daily PT Predicted Duration/Target Date for Goal Attainment 01/01/24 PT Goals Bed Mobility;Transfers;Gait;Stairs PT: Bed Mobility Independent;Supine to/from sit PT: Transfers Supervision/stand-by assist;Sit to/from stand;Assistive device PT: Gait Supervision/stand-by assist;Rolling walker;150 feet PT: Stairs Greater than 10 stairs;Minimal assist Therapeutic Activity Therapeutic Activities: dynamic activities to improve functional performance Minutes (92145) 10 Symptoms Noted During/After Treatment Dizziness Treatment Detail/Skilled Intervention Supine to seated EOB with SBA, reports dizziness in supine and in seated, worse in seated, but tolerable and didn't appear to affected seated balance. Sit to stand without device where pt unsteady at first, needed time to achieve full upright and static stand for a minute to stabilize. Up to transport cart at end of session to transfer floors. Gait Training Gait Training Minutes (89632) 9 Symptoms Noted During/After Treatment (Gait Training) dizziness Treatment Detail/Skilled Intervention Ambulation without device where pt demonstrates decreased L toe clearance and LE external rotation, affected dynamic balance. Pt tolerated ambulation relatively well, began to become tired after x 100ft Distance in Feet 100ft Center Level (Gait Training) contact guard Physical Assistance Level (Gait Training) verbal cues Weight Bearing (Gait Training) full weight-bearing PT Discharge Planning PT Plan gait with FWW, stairs, DGI/FGA PT Discharge Recommendation (DC Rec) home with assist;home with home care physical therapy PT Rationale for DC Rec Patient anticipated to return home with family support; exact baseline however is unclear at this time as pt may be inaccurate historian. Pt will benefit from using FWW for ambulation, home care to address safety and independence, and daily support of family. PT Brief overview of current status SBA bed mob, CGA transfers, CGA ambulation x 100ft without device; should use FWW for safety Total Session Time Timed Code Treatment Minutes 19 Total Session Time (sum of timed and untimed services) 32 ARD MACHINE OPERATOR * Yulissa Leggett, RN - 12/25/2023 1:56 PM CST Transferred to: Unit 73 at 1415 Belongings: With patient. Trevino removed? Using urinal at bedside. Central line removed? NA Chart and medications sent with patient Yes Family notified: Yes Pt is being transferred to 73, Neuroscience unit. He is A/Ox4, left sided face droop, with generalized weakness and lethargy. On RA. NSR, tachy with exertion. Regular diet. UOP adequate, uses urinal at bedside. SBA with activity. Family notified of transfer. ARD MACHINE OPERATOR * Kaylee Ortega MD - 12/25/2023 12:54 PM CST [facility] Hospitalist Progress Note Assessment & Plan Jed Alamo is a 68 year old male with a past medical history of CKD stage III, dyslipidemia,BPH, prior strokes, dementia, history of alcohol and tobacco abuse presents to hospital with a stroke. Ischemic stroke status post TNK L sided weakness, slurred speech; improved Hx prior strokes Per Admitting Hospitalist Patient presented to an outside hospital with left facial droop, left sided weakness and slurred speech. He received TNKase at 1842 on December 23. Symptoms significantly improved post thrombolytics. Patient was transferred to [facility] for close monitoring. On evaluation the patient has some mild sided weakness greater than right. And a mild left facial droop. He also reports double vision which improves when he closes his left eye but he reports that this is chronic. Admitted to ICU Blood pressure goal less than 180/105 Avoid anticoagulants and antiplatelets for 24 hours Follow-up lipid profile; LDL 89 and A1c 5.2. Continue atorvastatin Repeat head CT 24 hours post thrombolytics Head CT, CTA, MRI brain: No acute findings. Echocardiogram: Normal LV and RV function, EF 60-65%, no significant valve dysfunction, see report. -Stroke neurology consult, see note. Diagnosis of encephalopathy versus recrudescence. MRI 24 hourspost reported stroke Follow-up PT, OT, speech, Chronic medical conditions CKD stage III-creatinine has been variable in the past but appears to be close to his baseline. 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 OT ordered History of prior strokes with residual left facial droop History of alcohol abuse now in remission History of tobacco use DVT Prophylaxis: Pneumatic Compression Devices Code Status: Full Code Expected Discharge Date: 1-2 days pending Stroke Neurology plan established, PT assessment regarding safe discharge. Kaylee Ortega MD Text Page (7am - 6pm, M-F) Total time 50 minutes for today 12/25/2023 : time consisted of the following, assuming Patient care in ICU; with review of records including labs, imaging results, medications, interdisciplinary notes;examination of Patient; and completing documentation and orders. Care Management included counseling /discussion with Patient regarding current condition including hx of strokes and focal motor weakness and Coordination of Care time with Nursing and Specialists, Stroke Neurology regarding care plan,management and surveillance; as above. Interval History Assumed care. In ICU. On morning encounter feels well, without complaints, states motor loss on right side and dysarthria significantly improved, nursing notes no new neurologic focality. SH: No tobacco. Lives with , retired from [employer]. ROS: Complete ROS negative except as above. -Data reviewed today: I reviewed all new labs and imaging results over the last 24 hours. Physical Exam Temp: 97.9 ??F (36.6 ??C) Temp src: Oral BP: 113/87 Pulse: (!) 126 Resp: 18 SpO2: 91 % O2 Device: None (Room air) Vitals: 12/25/23 0400 Weight: 67.5 kg (148 lb 13 oz) General/Constitutional: NAD, awake calm, cooperative HEENT: EEG cap on Chest/Respiratory: Respirations nonlabored room air Cardiovascular: regular, no murmur appreciated. LE edema none Gastrointestinal/Abdomen: soft, nontender, Neuro. Gross motor tested, L hand building construction professor strength 4/5; LHD; ambuation not tested Psych oriented, affect calm Medications - MEDICATION INSTRUCTIONS - atorvastatin 80 mg Oral QPM sodium chloride (PF) 3 mL Intracatheter Q8H tamsulosin 0.8 mg Oral Daily Data Recent Labs Lab 12/25/23 0849 12/25/23 0521 12/24/23 2309 12/24/23 1742 WBC -- 9.9 -- 10.5 HGB -- 12.2* -- 12.9* MCV -- 89 -- 90 PLT -- 223 -- 240 INR -- 1.00 -- 0.95 NA -- 140 -- 140 POTASSIUM -- 4.0 -- 4.2 CHLORIDE -- 103 -- 104 CO2 -- 24 -- 26 BUN -- 16.7 -- 18.6 CR -- 1.27* -- 1.38* ANIONGAP -- 13 -- 10 COREY -- 9.0 -- 9.4 GLC 87 117* 77 96 ALBUMIN -- -- -- 4.4 PROTTOTAL -- -- -- 7.0 BILITOTAL -- -- -- 0.3 ALKPHOS -- -- -- 131 ALT -- -- -- 55 AST -- -- -- 24 Recent Results (from the past 24 hour(s)) CT Head w/o Contrast Narrative EXAM: CT HEAD W/O CONTRAST LOCATION: [facility] DATE: 12/24/2023 INDICATION: Code Stroke to evaluate [...] left cerebellar infarcts. No acute osseous abnormality. Impression IMPRESSION: 1. No evidence of hemorrhage. 2. No convincing acute infarct. 3. Multiple old infarcts. Findings were discussed by phone between Dr. Hernandez and Dr. Arnett at approximately 5:47 PM on 12/24/2023. CTA Head Neck with Contrast Narrative EXAM: CTA HEAD NECK W CONTRAST LOCATION: [facility] DATE: 12/24/2023 INDICATION: Code Stroke to evaluate [...] intracranial hemorrhage, extraaxial collection, or mass effect. No CT evidence of acute infarct. Normal parenchymal [...] Presumed benign sclerosis within the C7 vertebra. Impression IMPRESSION: HEAD CTA: 1. No evidence of large vessel occlusion or high-grade stenosis. NECK CTA: 1. No evidence of large vessel occlusion or high-grade stenosis. MR Brain w/o Contrast Narrative EXAM: MR BRAIN W/O CONTRAST LOCATION: [facility] DATE: 12/25/2023 INDICATION: Acute ischemic stroke COMPARISON: 12/24/2023, 12/09/2023 TECHNIQUE: Routine multiplanar multisequence head MRI without intravenous contrast. FINDINGS: Mildly motion degraded exam. INTRACRANIAL CONTENTS: No acute or subacute infarct. Chronic infarcts in the left cerebellum, marin,right basal ganglia and thalamus. No mass, acute [...] thickening in the mastoid air cells bilaterally. Impression IMPRESSION: 1. No acute intracranial process. 2. Stable chronic changes as detailed above. Echocardiogram Complete - For age > 60 yrs Result Value LVEF 60-65% [facility] [id number]^BIANKA^BROOKE^CANDICE [facility] Echocardiography [facility] [address] [place] [address] Name: JED ALAMO : 1955 Study Date: 12/25/2023 07:46 AM Age: 68 yrs Gender: Male Patient Location: [facility] Reason For Study: Cerebrovascular Incident Ordering [...] S Abe: 11.7 cm/sec Report approved by: Ofelia Trejo MDon 12/25/2023 11:37 AM ARD MACHINE OPERATOR documented in this encounter H&P Notes * Brooke Carlton MD - 12/24/2023 10:14 PM CST [facility] History and Physical Hospitalist Date of Admission: 12/24/2023 Assessment & Plan Jed Alamo is a 68 year old male with a past medical history of CKD stage III, dyslipidemia,BPH, prior strokes, dementia, history of alcohol and tobacco abuse presents to hospital with a stroke. Ischemic stroke status post TNK Patient presented to an outside hospital with left facial droop, left sided weakness and slurred speech. He received TNKase at 1842 on December 23. Symptoms significantly improved post thrombolytics. Patient was transferred to [facility] for close monitoring. On my evaluation the patient has some mild sided weakness greater than right. And a mild left facial droop. He also reports double vision which improves when he closes his left eye but he reports that this is chronic. Admitted to ICU Blood pressure goal less than 180/105 Avoid anticoagulants and antiplatelets for 24 hours Follow-up lipid profile and A1c Repeat head CT 24 hours post thrombolytics Follow-up MRI brain Echocardiogram Follow-up PT, OT, speech, stroke neuro Chronic medical conditions CKD stage III-creatinine has been variable in the past but appears to be close to his baseline. Dyslipidemia BPH- flomax Dementia-normally alert and oriented, but has difficulty with short term memory History of prior strokes with residual left facial droop History of alcohol abuse now in remission History of tobacco use DVT ppx: SCDs Expected length of stay greater than than 2 days Code Status: Full code Primary Care Physician Nathalie Tate Chief Complaint No chief complaint on file. History obtained from the patient and his History of Present Illness Jed Alamo is a 68 year old male with a past medical history of a prior stroke, CKD stage III, dementia, BPH presented to the [facility] emergency room with left-sided facial droop, slurred speech, left-sided weakness. At 3pm he caught his foot while climbing up a step in his house and stumbled. Daughter checked on him and he was well. 5-10 minutes later he reported a headache and took a nap around 4pm. His arrived at 4:30pm and found her not responding and his left armlooked weird and he appeared to be unable to move. He had difficulty with speech, making noise, but incomprehensible. sat him up, but he was unstable. She tried to stand him up, but his legs wouldn't work. and daughter were able to get him into the car and bring him to the hospital. He was within the thrombolytic window upon arrival. CT of the head was negative for hemorrhage. Stroke neurology was consulted and after speaking with the patient and his family the patient opted to accept thrombolytics. The patient received TNKase at 6:42 PM. CTA of the head and neck were negative for any critical stenosis. The patient was transferred to [facility] ICU for further care and monitoring. His reports that she noticed that his symptoms started to improve drastically after receivingthrombolytics. During my interview with the patient at the [facility] ICU the patient is speaking clearly and moving all 4 extremities. He denies any new symptoms. He reports that he does feel dizzy an d has blurry vision but reports that this is chronic. Past Medical History I have reviewed this patient's medical history and updated it with pertinent information if needed. Past Medical History: Diagnosis Date ALCOHOL ABUSE, IN REMISSION AA weekly Arthritis Chronic kidney disease Eczema ED (erectile dysfunction) HTN (hypertension), benign 2003 Hyperlipidemia 2005 Prediabetes 2008 Past Surgical History I have reviewed this patient's surgical history and updated it with pertinent information if needed. Past Surgical History: Procedure Laterality Date HC REMOVE TONSILS/ADENOIDS,<12 Y/O [facility] ARTHROTOMY W/OPEN MENISCUS REPAIR 2008 right -TRIA Allergies Allergies Allergen Reactions Sulfa Antibiotics Rash Social History I have reviewed this patient's social history and updated it with pertinent information if needed. Jed Alamo reports that he has quit smoking. His smoking use included cigarettes and other. He started smoking about 54 years ago. He has a 15 pack-year smoking history. He has been exposed to tobacco smoke. He has never used smokeless tobacco. He reports that he does not drink alcohol and does not use drugs. Family History I have reviewed this patient's family history and updated it with pertinent information if needed. Family History Problem Relation Age of Onset [...] hx of Dementia No family hx of [place] Disease No family hx of Parkinsonism No family hx of Autism Spectrum Disorder No family hx of Intellectual Disability (Mental Retardation) No family hx of Mental Illness No family hx of Physical Exam Vital signs: Temp: 98.4 ??F (36.9 ??C) Temp src: Oral BP: (!) 181/86 SpO2: 98 % Estimated body mass index is 23.38 kg/m?? as calculated from the following: Height as of 12/16/23: 1.778 m (5' 10). Weight as of an earlier encounter on 12/24/23: 73.9 kg (162 lb 14.7 oz). Vital Signs with Ranges Temp: [98.4 ??F (36.9 ??C)] 98.4 ??F (36.9 ??C) Pulse: [66-88] 67 Resp: [6-28] 6 BP: (122-175)/(42-107) 175/92 SpO2: [95 %-99 %] 95 % 0 lbs 0 oz Physical Exam Vitals reviewed. Constitutional: Appearance: Normal appearance. Comments: Pleasant man seen resting bed comfortably no apparent distress in the ICU. HENT: Head: Normocephalic and atraumatic. Eyes: Extraocular Movements: Extraocular movements intact. Conjunctiva/sclera: Conjunctivae normal. Pupils: Pupils are equal, round, and reactive to light. Cardiovascular: Rate and Rhythm: Normal rate and regular rhythm. Pulmonary: Effort: Pulmonary effort is normal. Breath sounds: Normal breath sounds. Musculoskeletal: General: No swelling. Neurological: Mental Status: He is alert. Comments: Patient has a mild left-sided facial droop. His left upper extremity is slightly weaker than the right but he is able to move against gravity and against resistance. His jkkwef-gh-xyid is intact. He is moving his lower extremities against resistance and strength appears to be equal bilaterally. He is alert and oriented to person place and situation. Medical Decision Making 75 MINUTES SPENT BY ME on the date of service doing chart review, history, exam, documentation & further activities per the note. ARD MACHINE OPERATOR documented in this encounter Consult Notes * Conchita Uribe, ILA - 12/26/2023 11:18 AM CSTAssociated Order(s): CARE MANAGEMENT / SOCIAL WORK IP CONSULT Care Management Initial Consult General Information Assessment completed with: Patient, Type of CM/SW Visit: Initial Assessment Primary Care Provider verified and updated as needed: Yes Readmission within the last 30 days: other (see comments) Return Category: Progression of disease Reason for Consult: discharge planning Advance Care Planning: Advance Care Planning Reviewed: present on chart Communication Assessment Patient's communication style: spoken language (S[place] or Bilingual) Hearing Difficulty or Deaf: no Wear Glasses or Blind: yes Cognitive Cognitive/Neuro/Behavioral: WDL Level of Consciousness: alert Arousal Level: opens eyes spontaneously Orientation: oriented x 4 Mood/Behavior: flat affect, calm, cooperative Best Language: 0 - No aphasia Speech: clear, spontaneous, logical Living Environment: People in home: child(debbie), adult, spouse Porsche, Daughter Trini Current living Arrangements: house Able to return to prior arrangements: yes Family/Social Support: Care provided by: self, spouse/significant other, homecare agency, child(debbie) Provides care for: no one Marital Status: , Children, INSTRUMENTATION AND CONTROLS TECHNICIAN Description of Support System: Supportive, Involved Support Assessment: Adequate family and caregiver support, Adequate social supports Current Resources: Patient receiving home care services: Community Resources: Equipment currently used at home: walker, rolling Supplies currently used at home: Employment/Financial: Employment Status: retired Financial Concerns: none Referral to Financial Worker: No Does the patient's insurance plan have a 3 day qualifying hospital stay waiver? No Lifestyle & Psychosocial Needs: Social Determinants of Health Food Insecurity: Not on file Depression: Not at risk (08/07/2022) PHQ-2 PHQ-2 Score: 1 Housing Stability: Not on file Tobacco Use: Medium Risk (12/16/2023) Patient History Smoking Tobacco Use: Former Smokeless Tobacco Use: Never Passive Exposure: Past Financial Resource Strain: Not on file Alcohol Use: Not on file Transportation Needs: Not on file Physical Activity: Not on file Interpersonal Safety: Not on file Stress: Not on file Social Connections: Not on file Mental Health Status: Mental Health Status: No Current Concerns Chemical Dependency Status: Chemical Dependency Status: No Current Concerns Values/Beliefs: Spiritual, Cultural Beliefs, Sikhism Practices, Values that affect care: no Additional Information: SW consulted for discharge planning and completed chart review. Per history and physicla, patient comes with history of CKD stage III, dyslipidemia, BPH, prior strokes, dementia, history of alcohol and tobacco abuse. He presented from a outside hospital with left facial droop, left sided weakness and slurred speech. He was recently hospitalized at [facility] from 12/09-12/11 for hematuria. SW met with patient to introduce themselves and role and confirm info in the chart. Patient resides in a multi-level home with his spouse and adult daughter Trini. He has a INSTRUMENTATION AND CONTROLS TECHNICIAN that is privately paid for for 3 days a week, four hours a day. He reports having no other services at home, but he would be agreeable to HHC OT and PT. He said he wants to discuss HHC with his as well. Referral was sent for HHC. ILA Brown, RESEARCH STAFF MEMBER Social Work [facility] ARD MACHINE OPERATOR * Charlotte Guerra MD - 12/25/2023 8:02 AM CSTAssociated Order(s): NEUROLOGY IP STROKE CONSULT Images from the original note were not included. [facility] Stroke Consult Note Reason for Consult: Stroke [...] slurring and mild weakness on the left. On tele exam patient had a NIHSS of 3 scored for LUE drift, L nasolabial flattening and mild-mod aphasia wherein he was slow to answer and was non-fluent in speech. Of note, family remembers him having similar weakness and speech difficulty with his previous stroke. reports that she noticed that he was having some behaviors prior to arrival that seemed like he was confused (trying to drink from a sanitizing wipe bottle, trying to clean the floor,etc). Afterlong discussion with and daughter via Tele that this could be encephalopathy/recrudescence, family opted to go forward with tnk, lest this was an acute stroke and tnk was administered on 12/23 at 18:42 Stroke Evaluation Summarized MRI/Head CT 12/24: No acute ischemia or hemorrhage. E/o chronic strokes to R basal ganglia, marin and left cerebellum. Moderate generalized cerebral atrophy most conspicuous in the insular regions (L > R) Intracranial Vasculature No LVO or critical stenoses. Mild athero at b/l cavernous ICA. R INSTRUMENTATION AND CONTROLS TECHNICIAN. Mild ICAD in anterior and posterior circulation Cervical Vasculature No LVO or critical stenoses. Mild-mod athero at R cervical ICA (<50% stenosis) and mild athero at L cervical ICA. Mild athero at arch. Echocardiogram pending EKG/Telemetry SR Other Testing Not Applicable LDL 12/24/2023: 89 mg/dL A1C 12/24/2023: 5.2 % Troponin 12/24/2023: 20 ng/L Impression Acute onset non fluent speech with mild L sided weakness Past h/o multifocal strokes including R basal ganglia stroke Cognitive decline D/D: Encephalopathy vs Recrudescence Recommendations - Neurochecks q 4 hours - Goal BP < 180 / 105 - Hold all antithrombotic and anticoagulant medications for 24 hrs post-thrombolytic - Hold pharmacologic VTE prophylaxis for 24 hrs post-thrombolytic - Statin: Increase atorvastatin dose to 80 mg with LDL goal of < 70 - Repeat Head CT 24 hrs post-thrombolytic (at 19:00 today); can start ASA 81 mg if repeat scan is stable - sEEG UPDATE: Generalized slowing. No seizures. - Telemetry, EKG - Bedside Glucose Monitoring - A1c, Lipid Panel, Troponin x 3 - PT/OT/PEST CONTROL WORKER HELPER - Stroke Education - Euthermia, Euglycemia Patient Follow-up - final recommendation pending work-up Thank you for this consult. We will continue to follow. The Stroke Staff is Dr. Whipple. Charlotte Guerra MD Vascular Neurology Fellow To page me or covering stroke neurology steam fitter, click here: AMCOM Choose Chartered Financial Analyst tab at top, then select NEUROLOGY/ALL SITES [...] HTN (hypertension), benign 2003 Hyperlipidemia 2005 Prediabetes 2009 Medications Home Meds Prior to Admission medications [...] every evening Reported, Patient vitamin D2 (ERGOCALCIFEROL) 64852 units (1250 mcg) capsule Take 1 capsule by mouth once a week 10/06/23 Alton Alonzo MD Scheduled Meds sodium chloride (PF) 3 mL Intracatheter Q8H tamsulosin 0.8 mg Oral Daily Infusion Meds - MEDICATION INSTRUCTIONS - Allergies Allergies Allergen Reactions Sulfa Antibiotics Rash PHYSICAL EXAMINATION Temp: [98 ??F (36.7 ??C)-98.4 ??F (36.9 ??C)] 98 ??F (36.7 ??C) Pulse: [59-88] 71 Resp: [6-37] 23 BP: (105-181)/(42-116) 128/64 SpO2: [95 %-99 %] 98 % Neuro: Awake, alert, more attentive, mild left nasolabial flattening, grade 5/5 strength in b/l UE and LE, sensation intact b/lly, speech much more fluent today compared to during the code - no aphasia, no dysarthria, FNF and HTS intact Imaging I personally reviewed all imaging; relevant findings per HPI. Labs Data CBC Recent Labs Lab 12/25/23 0521 12/24/23 1742 WBC 9.9 10.5 RBC 4.01* 4.27* HGB 12.2* 12.9* HCT 35.7* 38.2* PLT 223 240 Basic Metabolic Panel Recent Labs Lab 12/25/23 0521 12/24/23 2309 12/24/23 1742 NA 140 -- 140 POTASSIUM 4.0 -- 4.2 CHLORIDE 103 -- 104 CO2 24 -- 26 BUN 16.7 -- 18.6 CR 1.27* -- 1.38* GLC 117* 77 96 COREY 9.0 -- 9.4 Liver Panel Recent Labs Lab 12/24/23 1742 PROTTOTAL 7.0 ALBUMIN 4.4 BILITOTAL 0.3 ALKPHOS 131 AST 24 ALT 55 INR Recent Labs Lab Test 12/25/23 0521 12/24/23 1742 01/20/22 0024 INR 1.00 0.95 1.15 Stroke Consult Data Data This was a non-emergent, non-telestroke consult. ARD MACHINE OPERATOR Associated attestation - Krys Whipple MD - 12/25/2023 11:00 PM BULLARD MACHINE OPERATOR Attending Physician Addendum Patient was seen and examined on 12/25/2023 with the fellow on the vascular neurology service, Dr Guerra. Agree with the note below including the history, examination, assessment, and plan. Adding to that the following: Impression: stroke mimic - likely metabolic encephalopathy secondary to SILVANO, other considerations include unwitnessed seizure/postictal state, fluctuating dementia. Received TNK on presentation to the ED because stroke could not be ruled out. 12/10/23 05:52 12/24/23 17:42 12/25/23 05:21 Creatinine 1.04 1.38 (H) 1.27 (H) Recommendations: EEG. Resume ASA 81 after 24h from TNK have elapsed. Hydration per hospitalist. I reviewed all laboratory data and neuroimaging studies. Jed Alamo is in critical condition due to stroke like symptoms and administration of high risk medication, TNK; he is at high risk of further neurologic deterioration. I personally spent 35 minutes of critical care decision making time managing the above conditions. I agree with the remainder of the assessment and plan of care documented below. Krys Whipple MD, Msc, FAHA, FAAN Hazmat Cdl A Driver of Neurology [facility] 12/25/2023 10:51 PM To page me or covering stroke neurology steam fitter, click here: AMCOM Choose Chartered Financial Analyst tab at top, then search dropdown box for Neurology Adult & press Enter, lookfor Neuro ICU/Stroke documented in this encounter Miscellaneous Notes * Plan of Care - Rakesh Redmond, PT - 12/28/2023 11:29 AM CDT Physical Therapy Discharge Summary Reason for therapy discharge: Discharged to home with home therapy. Progress towards therapy goal(s). See goals on Care Plan in Epic electronic health record for goal details. Goals partially met. Barriers to achieving goals: discharge from facility. Therapy recommendation(s): Continued therapy is recommended. Rationale/Recommendations: Patient is below baseline level of independence, requiring support of a FWW for safe ambulation and lives in a 4 level split-level home. Patient progressing to SBA with use of FWW at this time and able to navigate stairs with use of SBA. Recommend continued use of FWW at home following discharge. Recommend discharge with HHPT to continue increasing safety and independence with functional mobility to return to PLOF. * Plan of Care - Lucia Farmer OTR - 12/28/2023 11:29 AM CDT Occupational Therapy Discharge Summary Reason for therapy discharge: Discharged to home with home therapy. Progress towards therapy goal(s). See goals on Care Plan in [facility] electronic health record for goal details. Goals partially met. Barriers to achieving goals: discharge from facility. Therapy recommendation(s): Continued therapy is recommended. Rationale/Recommendations: to increase indep with functional mobility and self cares. * Plan of Care - Campos Combs RN - 12/28/2023 6:12 AM CDT Reason for Admission: Stroke like symptoms, s/p TNK Cognitive/Mentation: A/Ox 4, able to make needs known Neuros/CMS: Intact ex generalized weakness, mild L droop, baseline double vision which improves with glasses, baseline numbness and tingling in bilateral toes. Tele: NSR. GI: Passing flatus, bowel sounds active. Continent. : voiding adequately, continent. Pulmonary: LS clear. Pain: denied. Drains/Lines: PIV SL Skin: intact Activity: Assist x 1 with gait belt . Diet: Reg with thin liquids. Takes pills whole. Therapies recs: home with outpatient PT/OT Discharge: Possible discharge today Aggression Stoplight Tool: green End of shift summary: Patient rested between cares. No issues overnight. * Plan of Care - Bryanna Gaming RN - 12/27/2023 7:04 PM CST Goal Outcome Evaluation: Plan of Care Reviewed With: patient Overall Patient Progress: improvingOverall Patient Progress: improving Reason for Admission: Stroke like symptoms, s/p TNK Cognitive/Mentation: A/Ox 4, able to make needs known Neuros/CMS: Intact ex generalized weakness, mild L droop, baseline double vision which improves with glasses, and baseline numbness and tingling in bilateral toes. VS: BP 122/56 (BP Location: Left arm) Pulse 76 Temp 97.6 ??F (36.4 ??C) (Oral) Resp 16 Wt 67.5 kg (148 lb 13 oz) SpO2 96% BMI 21.35 kg/m?? Tele: NSR. GI: Passing flatus, bowel sounds active. Continent. : voiding adequately, Continent. Pulmonary: LS clear. Pain: denied. Drains/Lines: IV L forearm Skin: intact Activity: Assist x 1 with gait belt . Diet: Reg with thin liquids. Takes pills whole. Therapies recs: home with outpatient PT/OT Discharge: Pending Aggression Stoplight Tool: green End of shift summary: Orthostatic BP done this shift. Worked with therapies. Up in the chair for meals. ARD MACHINE OPERATOR * Plan of Care - Malinda Lazcano RN - 12/27/2023 5:11 AM CST Malinda Lazcano RN on 12/27/2023 at 6:00 AM Reason for Admission: stroke-like symptoms, s/p TNK Cognitive/Mentation: A/Ox 4 Neuros/CMS: Intact ex mild L droop, occasionally dizzy when standing, generalized weakness, double vision at baseline VS: VSS, + orthostatic, on RA . Tele: NSR. GI: Last BM . Continent. : Continent. Pulmonary: LS clear. Pain: denies Drains/Lines: L PIV SL Skin: intact Activity: SBA Diet: reg with thin liquids. Takes pills whole Therapies recs: home w/ op PT/OT Discharge: pending Aggression Stoplight Tool: green ARD MACHINE OPERATOR * Plan of Care - Bryanna Gaming RN - 12/26/2023 7:16 PM CST Goal Outcome Evaluation: Plan of Care Reviewed With: patient Overall Patient Progress: improvingOverall Patient Progress: improving Reason for Admission: Stroke like symptoms, s/p TNK Cognitive/Mentation: A/Ox 4, able to make needs known Neuros/CMS: Intact ex generalized weakness, mild L droop, baseline double vision which improves with glasses, and baseline numbness and tingling in bilateral toes. VS: BP 129/68 (BP Location: Left arm) Pulse 92 Temp 97.4 ??F (36.3 ??C) (Oral) Resp 16 Wt 67.5 kg (148 lb 13 oz) SpO2 97% BMI 21.35 kg/m?? . Tele: NSR. GI: Passing flatus, bowel sounds active. Continent. : voiding adequately, Continent. Pulmonary: LS clear. Pain: denied. Drains/Lines: IV infusing NS Skin: intact Activity: Assist x 1 with gait belt . Diet: Reg with thin liquids. Takes pills whole. Therapies recs: home with outpatient PT/OT Discharge: Pending Aggression Stoplight Tool: green End of shift summary: Pt positive for orthostatic BP, MD aware and started Pt on Normal saline infusion. ARD MACHINE OPERATOR * Provider Notification - Bryanna Gaming RN - 12/26/2023 2:00 PM BULLARD MACHINE OPERATOR MD Notification Notified Person: MD Notified Person Name: Shannon Notification Date/Time: December 26, 2023 at 1358 Notification Interaction: Profitably messStartWire Purpose of Notification: Pt's orthostatic positive this shift, went from 145/75, 117/73, and 99/72. Pt reports he always feels a little dizzy when standing. Had a recent fall at home Orders Received: Ordered IV fluids Comments: ARD MACHINE OPERATOR * Plan of Care - Lela Guerrero RN - 12/26/2023 6:39 AM CST Reason for Admission: stroke-like symptoms, s/p TNK Cognitive/Mentation: A/Ox 4 Neuros/CMS: Intact ex mild L droop, generalized weakness, double vision at baseline VS: + orthostatic, on RA. Tele: NSR. GI: Last BM DRAINAGE ENGINEER. Continent. : voiding without difficulty. Continent. Pulmonary: LS clear. Pain: denies. Drains/Lines: L PIV SL Skin: intact Activity: SBA Diet: regular with thin liquids. Takes pills whole with water. Therapies recs: home w/ op PT/OT Discharge: pending Aggression Stoplight Tool: green End of shift summary: repeat head CT completed ARD MACHINE OPERATOR * Plan of Care - Tiara Wilhelm RN - 12/25/2023 4:50 PM CST Reason for Admission: Yesterday L weakness, asphasia, slurr, brought to [facility] [place] Cognitive/Mentation: A/Ox 4 Neuros/CMS: Intact ex lethargic, flat, generalized weakness, baseline R hand tremor, baseline blurred vision, baseline numbness and tingling in toes, slight L droop VS: Orthostatic hypotension, otherwise vitally stable, RA. Tele: NSR. GI: Last BM DRAINAGE ENGINEER. Continent. : Continent. Urinal at bedside. Pulmonary: LS clear. Pain: denies. Drains/Lines: L PIV SL Skin: mepi on coccyx Activity: Assist x 1 with GB W. Diet: reg with thin liquids. Takes pills whole. Therapies recs: computer repair instructor pt ot sw Discharge: home pending Aggression Stoplight Tool: green ARD MACHINE OPERATOR * Pharmacy-Admission Medication History - Bianca Good - 12/25/2023 1:03 PM CST [employer] Admission Medication History Admission medication history is complete. The information provided in this note is only as accurateas the sources available at the time of the update. Information Source(s): Spouse via phone Pertinent Information: Last dose of all maintenance medications was Friday night. Patients reports that he has been using phenylephrine nasal spray daily for the last 40 years. Changes made to DRAINAGE ENGINEER medication list: Added: Phenylephrine nasal spray Deleted: None Changed: Disulfuram dose decreased from twice to once daily Allergies reviewed with patient and updates made in EHR: yes Medication History Completed By: Bianca Good 12/25/2023 1:04 PM DRAINAGE ENGINEER Med List Medication Sig Last Dose acetaminophen (TYLENOL) 325 MG tablet Take 2 tablets (650 mg) by mouth every 4 hours as needed for mild pain or other (and adjunct with moderate or severe pain or per patient request) Past Week aspirin 81 MG EC tablet Take 81 mg by mouth every evening 12/23/2023 atorvastatin (LIPITOR) 40 MG tablet Take 1 tablet (40 mg) by mouth daily 12/23/2023 cyanocobalamin (CYANOCOBALAMIN) 1000 MCG/ML injection Inject 1 mL into the muscle every 30 days 11/24/2023 disulfiram (ANTABUSE) 250 MG tablet Take 2 tablets (500 mg) by mouth daily (Patient taking differently: Take 250 mg by mouth daily) 12/23/2023 escitalopram (LEXAPRO) 20 MG tablet Take 60 mg by mouth every evening 12/23/2023 ibuprofen (ADVIL/MOTRIN) 600 MG tablet Take 600 mg by mouth every 6 hours as needed Unknown Multiple Vitamins-Iron (TAB-A-CATRACHO/IRON) TABS Take 1 capsule by mouth daily 12/23/2023 phenylephrine (LEATHA-SYNEPHRINE) 1 % nasal spray [place] 1 drop into both nostrils daily 12/23/2023 tamsulosin (FLOMAX) 0.4 MG capsule Take 0.8 mg by mouth every evening 12/23/2023 thiamine (B-1) 100 MG tablet Take 100 mg by mouth every evening 12/23/2023 vitamin D2 (ERGOCALCIFEROL) 70238 units (1250 mcg) capsule Take 1 capsule by mouth once a week (Patient taking differently: Take 50,000 Units by mouth once a week On Saturdays) 12/20/2023 Bianca Good, Steam Conditioner Filling ARD MACHINE OPERATOR Associated attestation - Thiernoshalomchilango Catherine, [facility] - 12/25/2023 1:37 PM BULLARD MACHINE OPERATOR Although I was not present for the interview, nor did I personally see the patient, to my knowledgethe cisco certified internetwork expert has compiled the DRAINAGE ENGINEER medication list to the best of their ability given the information available at the time. Catherine Huertas, PharmD, BCPS * Plan of Care - Corine Rodriguez RN - 12/25/2023 6:01 AM CST Problem: Adult Inpatient Plan of Care Goal: Absence of Hospital-Acquired Illness or Injury Intervention: Identify and Manage Fall Risk Recent Flowsheet Documentation Taken 12/25/2023 0400 by Corine Rodriguez RN Safety Promotion/Fall Prevention: room door open room near nurse's station nonskid shoes/slippers when out of bed mobility aid in reach lighting adjusted room organization consistent supervised activity clutter free environment maintained assistive device/personal items within reach Taken 12/25/2023 0000 by Corine Rodriguez RN Safety Promotion/Fall Prevention: room door open room near nurse's station nonskid shoes/slippers when out of bed mobility aid in reach lighting adjusted room organization consistent supervised activity clutter free environment maintained assistive device/personal items within reach Taken 12/24/2023 2230 by Corine Rodriguez RN Safety Promotion/Fall Prevention: room door open room near nurse's station nonskid shoes/slippers when out of bed mobility aid in reach lighting adjusted room organization consistent supervised activity clutter free environment maintained assistive device/personal items within reach Goal Outcome Evaluation: Summary: Ischemic stroke [id number] Neuro: Neuros intact. Currently on q1h neuro checks. Forgetful. PERRLA CV/Tele: NSR. Goal to keep SBP < 180, DBP < 105. PRN Labetolol given x1. Resp: RA GI/: Regular diet. Voiding adequately via urinal. Skin: Intact. Mepi to coccyx. IV/infusion: PIV SL. Followed By: Hospitalist. [facility] from [place] around 2230 via EMS. ARD MACHINE OPERATOR documented in this encounter Plan of Treatment Scheduled Referrals Name Type Priority Associated Diagnoses Orde r Schedule Home Care Referral Referral Routine: Next available opening Imbalance due to old stroke Ordered: 12/28/2023 documented as of this encounter Goals Goal Patient Goal Type Associated Problems Recent Progress Patient-Stated? Author Transportation General On track( 019 3:46 PM BULLARD MACHINE OPERATOR) Yes Nani Sainz LSW Note: Goal Statement: Caregiver will learn of options for transportation and volunteer respite services. Measure of Success: Caregiver will know if options are available. Supportive Steps to Achieve: CC will send resources via text and caregiver will call. Barriers: recently moved home after rehab. Strengths: Caregiver works, just started with adult [facility] services today, 1-9 Date to Achieve By: January 17, 2019 Patient expressed understanding of goal: caregiver understands. documented as of this encounter Procedures Procedure Name Priority Date/Time Associated Diagnosis Comments GLUCOSE BY METER Routine 12/28/2023 8:20 AM CDT GLUCOSE BY METER Routine 12/28/2023 12:0 8 AM BULLARD MACHINE OPERATOR BASIC METABOLIC PANEL Routine 12/27/2023 7:46 AM BULLARD MACHINE OPERATOR GLUCOSE BY METER Routine 12/26/2023 10:0 8 PM BULLARD MACHINE OPERATOR GLUCOSE BY METER Routine 12/26/2023 5:25 PM BULLARD MACHINE OPERATOR GLUCOSE BY METER Routine 12/26/2023 12:0 9 PM BULLARD MACHINE OPERATOR GLUCOSE BY METER Routine 12/26/2023 7:41 AM BULLARD MACHINE OPERATOR GLUCOSE BY METER Routine 12/26/2023 1:56 AM BULLARD MACHINE OPERATOR GLUCOSE BY METER Routine 12/25/2023 10:0 6 PM BULLARD MACHINE OPERATOR CT HEAD W/O CONTRAST Routine 12/25/2023 7:00 PM BULLARD MACHINE OPERATOR GLUCOSE BY METER Routine 12/25/2023 1:36 PM BULLARD MACHINE OPERATOR EEG AWAKE OR DROWSY ROUTINE Routine 12/25/2023 11:21 AM BULLARD MACHINE OPERATOR GLUCOSE BY METER Routine 12/25/2023 8:49 AM BULLARD MACHINE OPERATOR ECHO COMPLETE Routine 12/25/2023 8:16 AM BULLARD MACHINE OPERATOR EKG 12-LEAD, TRACING ONLY Routine 12/25/2023 6:38 AM BULLARD MACHINE OPERATOR INR Routine 12/25/2023 5:21 AM BULLARD MACHINE OPERATOR PARTIAL THROMBOPLASTIN TIME Routine 12/25/2023 5:21 AM BULLARD MACHINE OPERATOR BASIC METABOLIC PANEL Routine 12/25/2023 5:21 AM BULLARD MACHINE OPERATOR CBC WITH PLATELETS Routine 12/25/2023 5: 21 AM BULLARD MACHINE OPERATOR MR BRAIN W/O CONTRAST Routine 12/25/2023 4:14 AM BULLARD MACHINE OPERATOR LIPID REFLEX TO DIRECT LDL PANEL STAT 12/24/2023 11:28 PM BULLARD MACHINE OPERATOR HEMOGLOBIN A1C STAT 12/24/2023 11:28 PM BULLARD MACHINE OPERATOR GLUCOSE BY METER Routine 12/24/2023 11:0 9 PM BULLARD MACHINE OPERATOR documented in this encounter Results * Glucose by meter (12/28/2023 8:20 AM CDT) GLUCOSE BY METER POCT 99 70 - 99 mg/dL 12/28/2023 8:27 AM CDT LABORATORY POC Blood, Capillary BLOOD SPECIMEN / Unknown 12/28/2023 8:20 AM CDT 12/28/2023 8:27 AM CDT Brooke Carlton MD LAB - [facility] LABORATORY POC [facility] [address], [address] [place] [address], [facility] [phone] * (ABNORMAL) Glucose by meter (12/28/2023 12:08 AM BULLARD MACHINE OPERATOR) GLUCOSE BY METER POCT 102(H) 70 - 99 mg/dL 12/28/2023 12:15 AM [facility]ORATORY POC Blood, Capillary BLOOD SPECIMEN / Unknown 12/28/2023 12:08 AM BULLARD MACHINE OPERATOR 12/28/2023 12:15 AM [facility] Brooke Carlton MD LAB - [facility] Organization Address City/State/ZIP Co de Phone Number LABORATORY POC [facility] [address], [address] [place] [address], [facility] [phone] * (ABNORMAL) Basic metabolic panel (12/27/2023 7:46 AM BULLARD MACHINE OPERATOR) Sodium 140 135 - 145 mmol/L 12/27/2023 8:49 AM [facility] Comment:Reference intervals for this test were updated on 07/15/2023 to more accurately reflect our healthy population. There may be differences in the flagging of prior results with similar values performed with this method. Interpretation of those prior results can be made in the context of the updated reference intervals. Potassium 4.8 3.4 - 5.3 mmol/L 12/27/2023 8:49 AM [facility] Chloride 108(H) 98 - 107 mmol/L 12/27/2023 8:49 AM [facility] Carbon Dioxide (CO2) 23 22 - 29 mmol/L 12/27/2023 8:49 AM [facility] Anion Gap 9 7 - 15 mmol/L 12/27/2023 8:49 AM [facility] Urea Nitrogen 21.5 8.0 - 23.0 mg/dL 12/27/2023 8:49 AM [facility] Creatinine 1.25(H) 0.67 - 1.17 mg/dL 12/27/2023 8:49 AM BULLARD MACHINE OPERATOR LABORATORY GFR Estimate 63 >60 mL/min/1. 73m2 12/27/2023 8:49 AM BULLARD MACHINE OPERATOR LABORATORY Calcium 8.9 8.8 - 10.2 mg/dL 12/27/2023 8:49 AM BULLARD MACHINE OPERATOR LABORATORY Glucose 96 70 - 99 mg/dL 12/27/2023 8:49 AM BULLARD MACHINE OPERATOR LABORATORY Blood STRUCTURE OF RIGHT UPPER LIMB / Unknown Venipuncture / Unknown 12/27/2023 7:46 AM BULLARD MACHINE OPERATOR 12/27/2023 8:28 AM BULLARD MACHINE OPERATOR Kaylee Ortega MD LAB - BLOOD ORDERA BLES LABORATORY [facility] [address], [address] [place] [address], [place] [phone] * (ABNORMAL) Glucose by meter (12/26/2023 10:08 PM BULLARD MACHINE OPERATOR) GLUCOSE BY METER POCT 109(H) 70 - 99 mg/dL 12/26/2023 10:16 PM BULLARD MACHINE OPERATOR LABORATORY POC Blood, Capillary BLOOD SPECIMEN / Unknown 12/26/2023 10:08 PM BULLARD MACHINE OPERATOR 12/26/2023 10:16 PM BULLARD MACHINE OPERATOR Brooke Carlton MD LAB - BEAKER P OCT LABORATORY POC [facility] [address], [address] [place] [address], [place] [phone] * Glucose by meter (12/26/2023 5:25 PM BULLARD MACHINE OPERATOR) GLUCOSE BY METER POCT 88 70 - 99 mg/dL 12/26/2023 5:32 PM BULLARD MACHINE OPERATOR LABORATORY POC Blood, Capillary BLOOD SPECIMEN / Unknown 12/26/2023 5:25 PM BULLARD MACHINE OPERATOR 12/26/2023 5:32 PM BULLARD MACHINE OPERATOR Brooke Carlton MD LAB - BEAKER P OCT Performing Organization Address City/[facility]/ZIP Co de Phone Number LABORATORY POC [facility] [address], [address] [place] [address], [place] [phone] * Glucose by meter (12/26/2023 12:09 PM BULLARD MACHINE OPERATOR) GLUCOSE BY METER POCT 97 70 - 99 mg/dL 12/26/2023 12:15 PM BULLARD MACHINE OPERATOR LABORATORY POC Blood, Capillary BLOOD SPECIMEN / Unknown 12/26/2023 12:09 PM BULLARD MACHINE OPERATOR 12/26/2023 12:15 PM BULLARD MACHINE OPERATOR Brooke Carlton MD LAB - BEAKER P OCT Performing Organization Address City/[facility]/ZIP Co de Phone Number LABORATORY POC [facility] [address], [address] [place] [address], [place] [phone] * Glucose by meter (12/26/2023 7:41 AM BULLARD MACHINE OPERATOR) GLUCOSE BY METER POCT 96 70 - 99 mg/dL 12/26/2023 7:48 AM BULLARD MACHINE OPERATOR LABORATORY POC Blood, Capillary BLOOD SPECIMEN / Unknown 12/26/2023 7:41 AM BULLARD MACHINE OPERATOR 12/26/2023 7:48 AM BULLARD MACHINE OPERATOR Brooke BASS - BEAKER P OCT LABORATORY POC [facility] [address], [address] [place] [address], [place] [phone] * Glucose by meter (12/26/2023 1:56 AM BULLARD MACHINE OPERATOR) GLUCOSE BY METER POCT 91 70 - 99 mg/dL 12/26/2023 2:03 AM BULLARD MACHINE OPERATOR LABORATORY POC Blood, Capillary BLOOD SPECIMEN / Unknown 12/26/2023 1:56 AM BULLARD MACHINE OPERATOR 12/26/2023 2:03 AM BULLARD MACHINE OPERATOR Brooke Carlton MD LAB - BEAKER P OCT LABORATORY [facility] [address], [address] [place] [address], [place] [phone] * (ABNORMAL) Glucose by meter (12/25/2023 10:06 PM BULLARD MACHINE OPERATOR) [facility] GLUCOSE BY METER POCT 103(H) 70 - 99 mg/dL 12/25/2023 10:13 PM BULLARD MACHINE OPERATOR LABORATORY POC Blood, Capillary BLOOD SPECIMEN / Unknown 12/25/2023 10:06 PM BULLARD MACHINE OPERATOR 12/25/2023 10:13 PM BULLARD MACHINE OPERATOR Brooke BASS - BEAKER P OCT LABORATORY [facility] [address], [address] [place] [address], [facility] [phone] * CT Head w/o Contrast - 24 hrs after Stroke (12/25/2023 7:00 PM BULLARD MACHINE OPERATOR) Anatomical Region Laterality Modality Head, SUBRAD CT NEURO, SUBRA D CT NEURO, UMP CT NEURO, RAD CT Computed Tomography 12/25/2023 7:00 PM BULLARD MACHINE OPERATOR Impressions 12/25/2023 10:50 PM BULLARD MACHINE OPERATOR IMPRESSION: 1. ??No CT evidence for acute intracranial process. 2. ??Stable chronic changes as above. Narrative 12/25/2023 10:50 PM BULLARD MACHINE OPERATOR EXAM: CT HEAD W/O CONTRAST LOCATION: [facility] DATE: 12/25/2023 INDICATION: Stroke follow-up COMPARISON: Brain MRI dated 12/25/2023 TECHNIQUE: Routine CT Head without IV contrast. Multiplanar reformats. Dose reduction techniques were used. FINDINGS: INTRACRANIAL CONTENTS: No intracranial hemorrhage, extraaxial collection, or mass effect. ??No CT evidence of acute infarct. Moderate presumed chronic small vessel ischemic changes. Moderate generalized volume loss. No hydrocephalus. Multifocal chronic infarcts are better appreciated on the prior MRI. VISUALIZED ORBITS/SINUSES/MASTOIDS: No intraorbital abnormality. Mild mucosal thickening scattered about the paranasal sinuses. Scattered fluid/membrane thickening in the mastoid air cells bilaterally. BONES/SOFT TISSUES: No acute abnormality. Procedure Note Jeny Moody MD - 12/25/2023 EXAM: CT HEAD W/O CONTRAST LOCATION: [facility] DATE: 12/25/2023 INDICATION: Stroke follow-up COMPARISON: Brain MRI dated 12/25/2023 TECHNIQUE: Routine CT Head without IV contrast. Multiplanar reformats.Dose reduction techniques were used. FINDINGS: INTRACRANIAL CONTENTS: No intracranial hemorrhage, extraaxial collection,or mass effect. No CT evidence of acute infarct. Moderate presumedchronic small vessel ischemic changes. Moderate generalized volume loss.No hydrocephalus. Multifocal chronic infarcts are better appreciated on the prior MRI. VISUALIZED ORBITS/SINUSES/MASTOIDS: No intraorbital abnormality. Mildmucosal thickening scattered about the paranasal sinuses. Scatteredfluid/membrane thickening in the mastoid air cells bilaterally. BONES/SOFT TISSUES: No acute abnormality. IMPRESSION: 1. No CT evidence for acute intracranial process. 2. Stable chronic changes as above. Kaylee Ortega MD IMG CT ORDERABLES * (ABNORMAL) Glucose by meter (12/25/2023 1:36 PM BULLARD MACHINE OPERATOR) [facility] Signature GLUCOSE BY METER POCT 119(H) 70 - 99 mg/dL 12/25/2023 1:43 PM BULLARD MACHINE OPERATOR LABORATORY POC Blood, Capillary BLOOD SPECIMEN / Unknown 12/25/2023 1:36 PM BULLARD MACHINE OPERATOR 12/25/2023 1:43 PM BULLARD MACHINE OPERATOR Brooke Carlton MD LAB - [facility] P [facility] LABORATORY POC [facility] [address], [address] [place] [address], [place] [phone] * EEG Awake or Drowsy Routine (12/25/2023 11:21 AM BULLARD MACHINE OPERATOR) Narrative [facility] - 12/25/2023 3:35 PM BULLARD MACHINE OPERATOR EEG Awake or Drowsy Routine Result EEG DATE: 12/25/23 EEG LOG: [id number] PORTABLE EEG DAY#: 0 EEG SOURCE FILE [...] Ortega MD IMG EEG ORDERABLES [facility] * Glucose by meter (12/25/2023 8:49 AM BULLARD MACHINE OPERATOR) Pathologist [facility] GLUCOSE BY METER POCT 87 70 - 99 mg/dL 12/25/2023 8:56 AM BULLARD MACHINE OPERATOR LABORATORY POC Blood, Capillary BLOOD SPECIMEN / Unknown 12/25/2023 8:49 AM BULLARD MACHINE OPERATOR 12/25/2023 8:56 AM BULLARD MACHINE OPERATOR Brooke Carlton MD LAB - BEAKER P OCT LABORATORY POC [facility] [address], [address] [place] [address], [facility] [phone] * ECHO COMPLETE (12/25/2023 8:16 AM BULLARD MACHINE OPERATOR) [facility] Signature LVEF 60-65% CARDIOLOGY RESULTS Anatomical Region Laterality Modality Echocardiography 12/25/2023 7:46 AM BULLARD MACHINE OPERATOR Narrative 12/25/2023 11:37 AM [facility] [id number]^BIANKA^BROOKE^CANDICE [facility] Echocardiography Laboratory [address] [place] [address] Name: JED ALAMO : 1955 Study Date: 12/25/2023 07:46 AM Age: 68 yrs Gender: Male Patient Location: [facility] Reason For Study: Cerebrovascular Incident Ordering [...] Procedure Note Ofelia Trejo MD - 12/25/2023 [id number]^BIANKA^BROOKE^CANDICE [facility] Echocardiography Laboratory [address] [place] [id number] Name: JED ALAMO : 1955 Study Date: 12/25/2023 07:46 AM Age: 68 yrs Gender: Male Patient Location: [facility] Reason For Study: Cerebrovascular Incident Ordering [...] EKG 12-lead, Tracing only (12/25/2023 6:38 AM BULLARD MACHINE OPERATOR) Systolic Blood Pressure mmHg RADIOLOGY RESULTS Diastolic Blood Pressure mmHg RADIOLOGY RESULTS Ventricular Rate 67 BPM RAD IOLOGY RESULTS Atrial Rate 67 BPM RADIOLOG Y RESULTS NE Interval 160 ms RADIOLOG Y RESULTS QRS Duration 90 ms RADIOLO GY RESULTS QT 414 ms RADIOLOGY RESULTS QTc 437 ms RADIOLOGY RESULTS P [place] 67 degrees RADIOLOGY RESULTS R AXIS 76 degrees RADIOLOGY RESULTS T [place] 71 degrees RADIOLOGY RESULTS Interpretation ECG Sinus rhythm Normal ECG When compared with ECG of 24-DEC-2023 18:55, No significant change was found Confirmed by MD CAROLINA, YE (1984), sports editor Brice Tovar ([id number]) on 12/26/2023 9:11:17 AM RADIOLOGY RESULTS 12/25/2023 6:38 AM BULLARD MACHINE OPERATOR 12/26/2023 9:11 AM BULLARD MACHINE OPERATOR Brooke Carlton MD ECG ORDERABLES RADIOLOGY RESULTS * Partial thromboplastin time (12/25/2023 5:21 AM BULLARD MACHINE OPERATOR) aPTT 27 22 - 38 Seconds 12/25/2023 5:53 AM BULLARD MACHINE OPERATOR SH LABORATORY Blood STRUCTURE OF RIGHT UPPER LIMB / Unknown Venipuncture / Unknown 12/25/2023 5:21 AM BULLARD MACHINE OPERATOR 12/25/2023 5:38 AM BULLARD MACHINE OPERATOR Brooke Carlton MD LAB - BLOOD OR DERABLES LABORATORY [facility] [address], [address] [place] [address], [facility] [phone] * INR (12/25/2023 5:21 AM BULLARD MACHINE OPERATOR) INR 1.00 0.85 - 1.15 12/25/2023 5:53 AM [facility] Blood STRUCTURE OF RIGHT UPPER LIMB / Unknown Venipuncture / Unknown 12/25/2023 5:21 AM BULLARD MACHINE OPERATOR 12/25/2023 5:38 AM BULLARD MACHINE OPERATOR Brooke Carlton MD LAB - BLOOD OR DERABLES LABORATORY [facility] [address], [place] [address], [facility] [phone] * (ABNORMAL) Basic metabolic panel (12/25/2023 5:21 AM [facility]) Sodium 140 135 - 145 mmol/L 12/25/2023 6:05 AM [facility] Comment:Reference intervals for this test were updated on 07/15/2023 to more accurately reflect our healthy population. There may be differences in the flagging of prior results with similar values performed with this method. Interpretation of those prior results can be made in the context of the updated reference intervals. Potassium 4.0 3.4 - 5.3 mmol/L 12/25/2023 6:05 AM [facility] Chloride 103 98 - 107 mmol/L 12/25/2023 6:05 AM [facility] Carbon Dioxide (CO2) 24 22 - 29 mmol/L 12/25/2023 6:05 AM [facility] Anion Gap 13 7 - 15 mmol/L 12/25/2023 6:05 AM [facility] Urea Nitrogen 16.7 8.0 - 23.0 mg/dL 12/25/2023 6:05 AM [facility] Creatinine 1.27(H) 0.67 - 1.17 mg/dL 12/25/2023 6:05 AM [facility] GFR Estimate 62 >60 mL/min/1. 73m2 12/25/2023 6:05 AM [facility] Calcium 9.0 8.8 - 10.2 mg/dL 12/25/2023 6:05 AM [facility] Glucose 117(H) 70 - 99 mg/dL 12/25/2023 6:05 AM [facility] Blood STRUCTURE OF RIGHT UPPER LIMB / Unknown Venipuncture / Unknown 12/25/2023 5:21 AM BULLARD MACHINE OPERATOR 12/25/2023 5:38 AM [facility] Brooke Carlton MD LAB - BLOOD OR DERABLES LABORATORY [facility] [address], [address] [place] [address], [facility] [phone] * (ABNORMAL) CBC with platelets (12/25/2023 5:21 AM [facility]) WBC Count 9.9 4.0 - 11.0 10e3/uL 12/25/2023 5:41 AM [facility] RBC Count 4.01(L) 4.40 - 5.90 10e6/uL 12/25/2023 5:41 AM [facility] Hemoglobin 12.2(L) 13.3 - 17.7 g/dL 12/25/2023 5:41 AM [facility] Hematocrit 35.7(L) 40.0 - 53.0 % 12/25/2023 5:41 AM [facility] MCV 89 78 - 100 fL 12/25/2023 5:41 AM [facility] MCH 30.4 26.5 - 33.0 pg 12/25/2023 5:41 AM [facility] MCHC 34.2 31.5 - 36.5 g/dL 12/25/2023 5:41 AM BULLARD MACHINE OPERATOR LABORATORY RDW 12.7 10.0 - 15.0 % 12/25/2023 5:41 AM BULLARD MACHINE OPERATOR LABORATORY Platelet Count 223 150 - 450 10e3/uL 12/25/2023 5:41 AM BULLARD MACHINE OPERATOR LABORATORY Blood STRUCTURE OF RIGHT UPPER LIMB / Unknown Venipuncture / Unknown 12/25/2023 5:21 AM BULLARD MACHINE OPERATOR 12/25/2023 5:38 AM BULLARD MACHINE OPERATOR Brooke Carlton MD LAB - BLOOD OR DERABLES LABORATORY [facility] [address], [address] [place] [address], [facility] [phone] * MR Brain w/o Contrast (12/25/2023 4:14 AM BULLARD MACHINE OPERATOR) Anatomical Region Laterality Modality Head, SUBRAD MR NEURO, UMP MR NEURO, RAD MR Magnetic Resonance 12/25/2023 4:14 AM BULLARD MACHINE OPERATOR Impressions 12/25/2023 4:22 AM BULLARD MACHINE OPERATOR IMPRESSION: 1. ??No acute intracranial process. 2. ??Stable chronic changes as detailed above. Narrative 12/25/2023 4:22 AM BULLARD MACHINE OPERATOR EXAM: MR BRAIN W/O CONTRAST LOCATION: [facility] DATE: 12/25/2023 INDICATION: Acute ischemic stroke [...] 12/25/2023 EXAM: MR BRAIN W/O CONTRAST LOCATION: [facility] DATE: 12/25/2023 INDICATION: Acute ischemic stroke [...] reflex to direct LDL (12/24/2023 11:28 PM BULLARD MACHINE OPERATOR) Cholesterol 166 <200 mg/dL 12/25/2023 3:05 AM BULLARD MACHINE OPERATOR [facility] Triglycerides 138 <150 mg/dL 12/25/2023 3:05 AM BULLARD MACHINE OPERATOR [facility] Direct Measure HDL 49 >=40 mg/dL 2023 3:05 AM BULLARD MACHINE OPERATOR [facility] LDL Cholesterol Calculated 89 <=100 mg/dL 12/25/2023 3:05 AM BULLARD MACHINE OPERATOR [facility] Non HDL Cholesterol 117 <130 mg/dL 12/25/2023 3:05 AM BULLARD MACHINE OPERATOR [facility] Blood STRUCTURE OF RIGHT UPPER LIMB / Unknown Venipuncture / Unknown 12/24/2023 11:28 PM BULLARD MACHINE OPERATOR 12/24/2023 11:44 PM BULLARD MACHINE OPERATOR Narrative LABORATORY - 12/25/2023 3:05 AM BULLARD MACHINE OPERATOR Cholesterol Desirable: ??<200 mg/dL Triglycerides Normal: ??Less [...] MD LAB - BLOOD OR DERABLES LABORATORY [facility] [address] [facility], [address] [place] [address], [place] [phone] * Hemoglobin A1c (12/24/2023 11:28 PM BULLARD MACHINE OPERATOR) [facility] Signature Hemoglobin A1C 5.2 <5.7 % 12/24/2023 11:59 PM BULLARD MACHINE OPERATOR LABORATORY Comment: Normal <5.7% Prediabetes 5.7-6.4% ?? Diabetes 6.5% or higher Note: Adopted from ADA consensus guidelines. Blood STRUCTURE OF RIGHT UPPER LIMB / Unknown Venipuncture / Unknown 12/24/2023 11:28 PM BULLARD MACHINE OPERATOR 12/24/2023 11:44 PM BULLARD MACHINE OPERATOR Brooke Carlton MD LAB - BLOOD OR DERABLES LABORATORY [facility] [address], [address] [place] [address], [place] [phone] * Glucose by meter (12/24/2023 11:09 PM BULLARD MACHINE OPERATOR) GLUCOSE BY METER POCT 77 70 - 99 mg/dL 12/24/2023 11:16 PM BULLARD MACHINE OPERATOR LABORATORY POC Blood, Capillary BLOOD SPECIMEN / Unknown 12/24/2023 11:09 PM BULLARD MACHINE OPERATOR 12/24/2023 11:16 PM BULLARD MACHINE OPERATOR Brooke Carlton MD LAB - BEAKER P OCT LABORATORY POC [facility] [address], [address] [place] [address], [facility] [phone] documented in this encounter Visit Diagnoses Diagnosis Stroke (H)- Primary Unspecified cerebral artery occlusion with cerebral infarction Cerebrovascular accident (CVA), unspecified mechanism (H) Imbalance due to old stroke documented in this encounter Admitting Diagnoses Diagnosis Stroke (H) Unspecified cerebral artery occlusion with cerebral infarction documented in this encounter Administered Medications Inactive Administered Medications - up to 3 most recent administrations Medication Order MAR Action Action Date Dose Rate Site acetaminophen (TYLENOL) solution 650 mg 650 mg, Per NG tube, EVERY 4 HOURS PRN, mild pain, fever, for temperature greater than 100.4 F (38 C) - may also be used for moderate pain, Starting on Fri12/24/23 at 2306, Maximum acetaminophen dose from all sources= 75 mg/kg/day not to exceed 4 grams/day. acetaminophen (TYLENOL) tablet 650 mg 650 mg, Oral, EVERY 4 HOURS PRN, mild pain, fever, for temperature greater than 100.4 F (38 C) - may also be used for moderate pain, Starting on Fri12/24/23 at 2306, Maximum acetaminophen dose from all sources = 75 mg/kg/day not to exceed 4 grams/day. aspirin (ASA) chewable tablet 81 mg 81 mg, Oral, DAILY, First dose on Fri12/26/23 at 0900 $Given 12/28/2023 8:29 AM CDT 81 mg $Given 12/27/2023 8:33 AM BULLARD MACHINE OPERATOR 81 mg $Given 12/26/2023 9:31 AM BULLARD MACHINE OPERATOR 81 mg atorvastatin (LIPITOR) tablet 80 mg 80 mg, Oral, EVERY EVENING, First dose on Briana 12/25/23 at 2000 $Given 12/27/2023 7:50 PM BULLARD MACHINE OPERATOR 80 mg $Given 12/26/2023 9:00 PM BULLARD MACHINE OPERATOR 80 mg $Given 12/25/2023 7:42 PM BULLARD MACHINE OPERATOR 80 mg disulfiram (ANTABUSE) tablet 250 mg 250 mg, Oral, DAILY, First dose on Fri12/27/23 at 0900 $Given 12/28/2023 8:29 AM CDT 250 mg $Given 12/27/2023 8:33 AM BULLARD MACHINE OPERATOR 250 mg escitalopram (LEXAPRO) tablet 60 mg 60 mg, Oral, EVERY EVENING, First dose on Fri12/26/23 at 2000 $Given 12/27/2023 7:50 PM BULLARD MACHINE OPERATOR 60 mg $Given 12/26/2023 9:00 PM BULLARD MACHINE OPERATOR 60 mg labetalol (NORMODYNE/TRANDATE) injection 10-20 mg 10-20 mg, Intravenous, EVERY 10 MIN PRN, high blood pressure, systolic BP greater than 180 mmHg or diastolic BP greater than 105 mmHg, Starting on Fri12/24/23 at 2306, Use if heart rate greater than or equal to 60 bpm GOAL: Systolic BP less than 180 mmHg and diastolic BP less than 105 mmHg Hold if heart rate less than 60 bpm. - Begin with 10 mg dose, then wait 10 mins. - If BP goal not met, give 20 mg, then wait 10 mins. - If BP goal not met, notify provider and consider starting niCARdipine (CARDENE) IV infusion. PROTECT FROM LIGHT. $Given 12/24/2023 11:18 PM BULLARD MACHINE OPERATOR 10 mg melatonin tablet 3 mg 3 mg, Oral, AT BEDTIME PRN, sleep, Starting on 12/27/23 at 1937 $Given 12/27/2023 7:49 PM BULLARD MACHINE OPERATOR 3 mg ondansetron (ZOFRAN ODT) ODT tab 4 mg 4 mg, Oral, EVERY 6 HOURS PRN, nausea, vomiting, Starting on 12/24/23 at 2307, This is Step 1 of nausea and vomiting protocol. If nausea not resolved in 15 minutes, go to Step 2 prochlorperazine(COMPAZINE). Do not push through foil backing. Peel back foil and gently remove. Place on tongue immediately. Administration with liquid unnecessary With dry hands, peel back foil backing and gently remove tablet. Do not push oral disintegrating tablet through foil backing. Administer immediately on tongue and oral disintegrating tablet dissolves in seconds, then swallow with saliva. Liquid not required. ondansetron (ZOFRAN) injection 4 mg 4 mg, Intravenous, EVERY 6 HOURS PRN, nausea, vomiting, Administer over 2-5 Minutes, Starting on Fri12/24/23 at 2307, This is Step 1 of nausea and vomiting protocol. If nausea not resolved in 15 minutes, go to Step 2 prochlorperazine(COMPAZINE). Irritant. sodium chloride (PF) 0.9% PF flush 3 mL 3 mL, Intracatheter, EVERY 8 HOURS, First dose on Fri12/24/23 at 2330, to lock peripheral IV dormant line $Given 12/27/2023 4:04 PM BULLARD MACHINE OPERATOR 3 mLs $Given 12/27/2023 8:39 AM BULLARD MACHINE OPERATOR 3 mLs $Given 12/26/2023 9:00 PM BULLARD MACHINE OPERATOR 3 mLs sodium chloride (PF) 0.9% PF flush 3 mL 3 mL, Intracatheter, EVERY 1 MIN PRN, line flush, other, to ensure patency or to lock dormant line, Starting on Fri12/24/23 at 2305 $Given 12/27/2023 7:51 PM BULLARD MACHINE OPERATOR 3 mLs sodium chloride 0.9% BOLUS 1,000 mL Intravenous, 1,000 mL, ONCE, at 100 mL/hr, Administer over 10 Hours, On Fri12/26/23 at 1500, For 1 dose $New Bag 12/26/2023 3:09 PM BULLARD MACHINE OPERATOR 1,000 mLs 100 mL/hr tamsulosin (FLOMAX) capsule 0.4 mg 0.4 mg, Oral, DAILY, First dose (after last modification) on Fri12/28/23 at 0900, Administer 30 minutes after the same meal each day. Capsules should be swallowed whole; do not crush chew or open. $Given 12/28/2023 8:30 AM CDT 0.4 mg tamsulosin (FLOMAX) capsule 0.8 mg 0.8 mg, Oral, DAILY, First dose on Fri12/25/23 at 0900, Administer 30 minutes after the same meal each day. Capsules should be swallowed whole; do not crush chew or open. $Given 12/27/2023 8:33 AM BULLARD MACHINE OPERATOR 0.8 mg $Given 12/26/2023 9:31 AM BULLARD MACHINE OPERATOR 0.8 mg $Given 12/25/2023 8:45 AM BULLARD MACHINE OPERATOR 0.8 mg documented in this encounter Active and Recently Administered Medications Due to Daylight Saving Time, this section may contain times in both BULLARD MACHINE OPERATOR and CDT. Scheduled Medication Order 12/26/2023 12/27/2023 12/28/2023 aspirin (ASA) chewable tablet 81 mg 81 mg, Oral, DAILY, First dose on Fri12/26/23 at 0900 0931 ($Given - Provider: Bryanna Gaming RN) 0833 ($Given - Provider: Bryanna Gaming, PILO) 0829 ($Given - Provider: Bryanna Gaming RN) atorvastatin (LIPITOR) tablet 80 mg 80 mg, Oral, EVERY EVENING, First dose on Briana 12/25/23 at 1999 2100 ($Given - Provider: Malinda Lazcano RN) 1950 ($Given - Provider: Campos Combs RN) disulfiram (ANTABUSE) tablet 250 mg 250 mg, Oral, DAILY, First dose on Fri12/27/23 at 0900 0833 ($Given - Provider: Bryanna Gaming RN) 0829 ($Given - Provider: Bryanna Gaming RN) escitalopram (LEXAPRO) tablet 60 mg 60 mg, Oral, EVERY EVENING, First dose on Fri12/26/23 at 1999 2100 ($Given - Provider: Malinda Lazcano RN) 1950 ($Given - Provider: Campos Combs, PILO) sodium chloride (PF) 0.9% PF flush 3 mL 3 mL, Intracatheter, EVERY 8 HOURS, First dose on Fri12/24/23 at 2330, to lock peripheral IV dormant line 0931 ($Given - Provider: Bryanna Gaming RN)1515 (Not Given - Provider: Bryanna Gaming RN - Reason: IV Infusing)2100 ($Given - Provider: Malinda Lazcano RN) 0839 ($Given - Provider: Bryanna Gaming, PILO)1604 ($Given - Provider: Bryanna Gaming, PILO) 0006 (Not Given - Provider: Campos Combs RN - Reason: Other)0939 (Not Given - Provider: Bryanna Gaming RN - Reason: Other) sodium chloride 0.9% BOLUS 1,000 mL (COMPLETED) Intravenous, 1,000 mL, ONCE, at 100 mL/hr, Administer over 10 Hours, On Fri12/26/23 at 1500, For 1 dose 1509 ($New Bag - Provider: Bryanna Gaming, PILO) tamsulosin (FLOMAX) capsule 0.4 mg 0.4 mg, Oral, DAILY, First dose (after last modification) on Fri12/28/23 at 0900, Administer 30 minutes after the same meal each day. Capsules should be swallowed whole; do not crush chew or open. 0830 ($Given - Provider: Bryanna Gaming RN) tamsulosin (FLOMAX) capsule 0.8 mg (CANCELED) 0.8 mg, Oral, DAILY, First dose on Fri12/25/23 at 0900, Administer 30 minutes after the same meal each day. Capsules should be swallowed whole; do not crush chew or open. 0931 ($Given - Provider: Bryanna Gaming RN) 0833 ($Given - Provider: Bryanna Gaming RN) PRN Medication Order 12/26/2023 12/27/2023 12/28/2023 acetaminophen (TYLENOL) solution 650 mg(Linked Group 1) 650 mg, Per NG tube, EVERY 4 HOURS PRN, mild pain, fever, for temperature greater than 100.4 F (38 C) - may also be used for moderate pain, Starting on Fri12/24/23 at 2306, Maximum acetaminophen dose from all sources= 75 mg/kg/day not to exceed 4 grams/day. acetaminophen (TYLENOL) tablet 650 mg(Linked Group 1) 650 mg, Oral, EVERY 4 HOURS PRN, mild pain, fever, for temperature greater than 100.4 F (38 C) - may also be used for moderate pain, Starting on Fri12/24/23 at 2306, Maximum acetaminophen dose from all sources = 75 mg/kg/day not to exceed 4 grams/day. hydrALAZINE (APRESOLINE) injection 10-20 mg 10-20 mg, Intravenous, EVERY 30 MIN PRN, high blood pressure, systolic blood pressure greater than 180 mmHg or diastolic BP greater than 105 mmHg, Administer over 1 Minutes, Starting on Fri12/24/23 at 2306, Use if heart rate less than 60 bpm GOAL: Systolic BP less than 180 mmHg or diastolic BP less than 105 mmHg - Begin with 10 mg dose, then wait 30 mins. - If BP goal not met, give 20 mg, then wait 30 mins. - If BP goal not met, notify provider and consider starting niCARdipine (CARDENE) infusion. labetalol (NORMODYNE/TRANDATE) injection 10-20 mg 10-20 mg, Intravenous, EVERY 10 MIN PRN, high blood pressure, systolic BP greater than 180 mmHg or diastolic BP greater than 105 mmHg, Starting on Fri12/24/23 at 2306, Use if heart rate greater than or equal to 60 bpm GOAL: Systolic BP less than 180 mmHg and diastolic BP less than 105 mmHg Hold if heart rate less than 60 bpm. - Begin with 10 mg dose, then wait 10 mins. - If BP goal not met, give 20 mg, then wait 10 mins. - If BP goal not met, notify provider and consider starting niCARdipine (CARDENE) IV infusion. PROTECT FROM LIGHT. lidocaine (LMX4) cream Topical, EVERY 1 HOUR PRN, pain, with VAD insertion, Starting on Fri12/24/23 at 2305, Apply at least 30 minutes prior to [...] mild pain with VAD insertion, Starting on Fri12/24/23 at 2305, MAX dose 1 mL subcutaneous OR intradermal along the side of the vein in divided doses as needed for VAD insertion. Do NOT give if patient has a history of allergy to any local anesthetic or any sarthak product. Do NOT use both lidocaine intradermal/subcutaneous injection and the lidocaine cream on the same site. Medication Instruction - Avoid dextrose in IV solutions CONTINUOUS PRN, Starting on Fri12/24/23 at 2303, Until 12/28/23 at 1329 melatonin tablet 3 mg 3 mg, Oral, AT BEDTIME PRN, sleep, Starting on Fri12/27/23 at 1937 1949 ($Given - Provider: Campos Combs RN) ondansetron (ZOFRAN ODT) ODT tab 4 mg(Linked Group 2) 4 mg, Oral, EVERY 6 HOURS PRN, nausea, vomiting, Starting on Fri12/24/23 at 2307, This is Step 1 of nausea and vomiting protocol. If nausea not resolved in 15 minutes, go to Step 2 prochlorperazine(COMPAZINE). Do not push through foil backing. Peel back foil and gently remove. Place on tongue immediately. Administration with liquid unnecessary With dry hands, peel back foil backing and gently remove tablet. Do not push oral disintegrating tablet through foil backing. Administer immediately on tongue and oral disintegrating tablet dissolves in seconds, then swallow with saliva. Liquid not required. ondansetron (ZOFRAN) injection 4 mg(Linked Group 2) 4 mg, Intravenous, EVERY 6 HOURS PRN, nausea, vomiting, Administer over 2-5 Minutes, Starting on Fri12/24/23 at 2307, This is Step 1 of nausea and vomiting protocol. If nausea not resolved in 15 minutes, go to Step 2 prochlorperazine(COMPAZINE). Irritant. sodium chloride (PF) 0.9% PF flush 3 mL 3 mL, Intracatheter, EVERY 1 MIN PRN, line flush, other, to ensure patency or to lock dormant line, Starting on Fri12/24/23 at 2305 1951 ($Given - Provider: Campos Combs RN) Linked Groups Order Group 1: acetaminophen (TYLENOL) tablet 650 mgJump to med 650 mg, Oral, EVERY 4 HOURS PRN, mild pain, fever, for temperature greater than 100.4 F (38 C) - may also be used for moderate pain, Starting on Fri12/24/23 at 2306, Maximum acetaminophen dose from all sources = 75 mg/kg/day not to exceed 4 grams/day. Or acetaminophen (TYLENOL) solution 650 mgJump to med 650 mg, Per NG tube, EVERY 4 HOURS PRN, mild pain, fever, for temperature greater than 100.4 F (38 C) - may also be used for moderate pain, Starting on Fri12/24/23 at 2306, Maximum acetaminophen dose from all sources= 75 mg/kg/day not to exceed 4 grams/day. Group 2: ondansetron (ZOFRAN ODT) ODT tab 4 mgJump to med 4 mg, Oral, EVERY 6 HOURS PRN, nausea, vomiting, Starting on Fri12/24/23 at 2307, This is Step 1 of nausea and vomiting protocol. If nausea not resolved in 15 minutes, go to Step 2 prochlorperazine(COMPAZINE). Do not push through foil backing. Peel back foil and gently remove. Place on tongue immediately. Administration with liquid unnecessary With dry hands, peel back foil backing and gently remove tablet. Do not push oral disintegrating tablet through foil backing. Administer immediately on tongue and oral disintegrating tablet dissolves in seconds, then swallow with saliva. Liquid not required. Or ondansetron (ZOFRAN) injection 4 mgJump to med 4 mg, Intravenous, EVERY 6 HOURS PRN, nausea, vomiting, Administer over 2-5 Minutes, Starting on Fri12/24/23 at 2307, This is Step 1 of nausea and vomiting protocol. If nausea not resolved in 15 minutes, go to Step 2 prochlorperazine(COMPAZINE). Irritant. documented in this encounter Additional Health Concerns Assessment Noted Time PHQ-9 Depression Total Score: 10 022 4:15 PM CDT documented as of this encounter Care Teams Head Control Clerk Relationship Specialty Start Date End Date Nathalie Tate MD [address] [place] [address] PCP - General Family Medicine 12/09/23 Nathalie Tate MD [address] [place] [address] Assigned PCP 06/28/23 documented as of this encounter
--- OUTSIDE RECORDS SUMMARY | 2024-03-04 03:48 | XMS_ITS | Encounter Summary ---
Author Name Unknown Organization [facility] Address [address] [place] [address]. [place] [address] Care Team Providers Care Licensed Loan Officer Name Role Phone Nathalie Tate MD Unavailable [phone] Nathalie Tate MD Primary Care Provider [phone] Reason for Visit * Auth/Cert (Routine) Specialty Diagnoses / Procedures Referred By Lobo t Referred To Contact Intensive Care Diagnoses Stroke (H) Acute ischemic stroke (H) Stroke (H) Intensive Care [address] [id number] Referral ID Status Reason Start Date Expiration Date Visits Re quested Visits Authorized [id number] 1 1 Encounter Details Date Type Department Care Team (Latest Contact Info) Description 12/25/2023 9:09 AM BOND MANAGER - 12/25/2023 11:59 PM BOND MANAGER Hospital Encounter [facility] EEG [address] [phone] Marco Watson DO [address] [id number] Gracia Edgar MD [address] [id number] Discharge Disposition: Home or Self Care Social History Tobacco Use Types Packs/Day Years [...] on file documented as of this encounter Medications at Time of Discharge [...] 06/03/2019 phenylephrine (LEATHA-SYNEPHRINE) 1 % nasal spray Bronson 1 drop into both nostrils daily as needed for congestion tamsulosin (FLOMAX) 0.4 MG capsule Take 0.8 mg by mouth every evening 03/17/2020 thiamine (B-1) 100 MG tablet Take 100 mg by mouth every evening vitamin D2 (ERGOCALCIFEROL) 20303 units (1250 mcg) capsuleIndications:Alco holism (H) Take [...] PCP Dr. Nathalie Tate with phone number [phone]. 30 tablet 12/28/2023 12/31/2023 disulfiram (ANTABUSE) 250 [...] 07/23/2022 12/28/2023 documented as of this encounter Progress Notes * Radha Quiroz - 12/25/2023 11:21 AM CST EEG portable performed on cooperative, awake, alert, drowsy, patient and photic performed. DR Whipple/ Dr Guerra ordering MANAGER documented in this encounter Plan of Treatment Not on file documented as of this encounter Goals Goal Patient Goal Type Associated Problems Recent Progress Patient-Stated? Author Transportation General On track( 019 3:46 PM BOND MANAGER) Yes Nani Sainz LSW Note: Goal Statement: Caregiver will learn of options for transportation and volunteer respite services. Measure of Success: Caregiver will know if options are available. Supportive Steps to Achieve: CC will send resources via text and caregiver will call. Barriers: recently moved home after rehab. 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 documented as of this encounter Procedures Procedure Name Priority Date/Time Associated Diagnosis Comments EEG AWAKE OR DROWSY ROUTINE Routine 12/25/2023 11:21 AM BOND MANAGER documented in this encounter Results * EEG Awake or Drowsy Routine (12/25/2023 11:21 AM BOND MANAGER) Narrative JEWEL - 12/25/2023 3:35 PM BOND MANAGER EEG Awake or Drowsy Routine Result EEG DATE: 12/25/23 EEG LOG: [id number] PORTABLE EEG #: 0 EEG SOURCE FILE [...] Kaylee Ortega MD IMG EEG ORDERABLES [employer] documented in this encounter Visit Diagnoses Not on filedocumented in this encounter Additional Health Concerns Assessment Noted Time PHQ-9 Depression Total Score: 10 022 4:15 PM CDT documented as of this encounter Care Teams Licensed Loan Officer Relationship Specialty Start Date End Date Nathalie Tate MD [address] [place] [address] PCP - General Family Medicine 12/09/23 Nathalie Tate MD [address] [place] [address] Assigned PCP 06/28/23 documented as of this encounter
--- OUTSIDE RECORDS SUMMARY | 2024-03-04 03:48 | XMS_ITS | Encounter Summary ---
Author Name Unknown Organization [facility] Address [address] [place] [id number] Care Team Providers Care Sleeve Sewer Name Role Phone Nathalie Tate MD Unavailable [phone] Nathalie Tate MD Primary Care Provider [phone] Encounter Details Date Type Department Care Team (Late st Contact Info) Description 12/17/2023 Telephone [facility] [address] [place] [phone] Nathalie Tate MD [address] [address] Social History Tobacco Use Types Packs/Day Years [...] encounter Miscellaneous Notes * Telephone Encounter - Nathalie Tate MD - 12/17/2023 10:26 AM UNIT MANAGER RN Images from the original note were not included. He will need a followup hosp visit apt, this message was sent to me: Sari Vasquez PA-C Pettigrew, Kara E, MD See discharge summary as patient will require follow up chest CT, Urology evaluation, Neurology evaluation MANAGER RN documented in this encounter Plan of Treatment Not on file documented as of this encounter Goals Goal Patient Goal Type Associated Problems Recent Progress Patient-Stated? Author Transportation General On track( 019 3:46 PM UNIT MANAGER RN) Yes Nani Sainz LSW Note: Goal Statement: Caregiver will learn of options for transportation and volunteer respite services. Measure of Success: Caregiver will know if options are available. Supportive Steps to Achieve: CC will send resources via text and caregiver will call. Barriers: recently moved home after rehab. Strengths: Caregiver works, just started with adult [employer] health services today, 10-28 Date to Achieve By: January 17, 2019 Patient expressed understanding of goal: caregiver understands. documented as of this encounter Visit Diagnoses Not on filedocumented in this encounter Additional Health Concerns Assessment Noted Time PHQ-9 Depression Total Score: 10 022 4:15 PM CDT documented as of this encounter Care Teams Sleeve Sewer Relationship Specialty Start Date End Date Nathalie Tate MD [address] [place] [address] PCP - General Family Medicine 12/09/23 Nathalie Tate MD [address] [place] [address] Assigned PCP 06/28/23 documented as of this encounter
--- OUTSIDE RECORDS SUMMARY | 2024-03-04 03:49 | XMS_ITS | Encounter Summary ---
Author Name Unknown Organization [facility] Address [address] [place] [address] Care Team Providers Care Reconditioner Name Role Phone Alton Alonzo MD Primary Care Provide r Alton Alonzo MD Unavailable [phone] Alton Alonzo MD Unavailable [phone] Nathalie Tate MD Unavailable [phone] Nathalie Tate MD Unavailable [phone] Alton Alonzo MD Unavailable [phone] Nathalie Tate MD Unavailable [phone] Nathalie Tate MD Primary Care Provider [phone] Encounter Details Date Type Department Care Team (Late st Contact Info) Description 01/03/2021 Documentation Only INTERFACED REPORT Unknown, Provider Social History Tobacco Use Types Packs/Day Years Used Date Smoking Tobacco: Every Day Cigarettes 0.5 54.4 Started: 10/20/1968 Other Smokeless Tobacco: Never Comments:Uses Nicotrol inhal er Alcohol Use Standard Drinks/Week Comments No 0 (1 standard drink = 0.6 oz pure alcohol) 100ml or more daily; recent relapse 08/18/15 PHQ-2 Answer Date Recorded PHQ-2 Score 2 09/13/2019 Sex and Gender Information Value Date Recorded Sex Assigned at Not on file Gender Identity Not on file Sexual Orientation Not on file documented as of this encounter Plan of Treatment Not on file documented as of this encounter Goals Goal Patient Goal Type Associated Problems Recent Progress Patient-Stated? Author Transportation General On track( 019 3:46 PM NEEDLE PUNCH OPERATOR) Yes Nani Sainz LSW Note: Goal Statement: Caregiver will learn of options for transportation and volunteer respite services. Measure of Success: Caregiver will know if options are available. Supportive Steps to Achieve: CC will send resources via text and caregiver will call. Barriers: recently moved home after rehab. Strengths: Caregiver works, just started with [employer] today, 1 Date to Achieve By: January 17, 2019 Patient expressed understanding of goal: caregiver understands. documented as of this encounter Visit Diagnoses Not on filedocumented in this encounter Additional Health Concerns Infection Onset Date Last Indicated Resolved Time Rule Out COVID-19 12/09/2023 12/09/2023 12/09/2023 9:14 PM NEEDLE PUNCH OPERATOR Assessment Noted Time PHQ-9 Depression Total Score: 6 09/13/20 19 9:54 AM NEEDLE PUNCH OPERATOR documented as of this encounter Care Teams Reconditioner Relationship Specialty Start Date End Date Alton Alonzo MD [address] , [address] [address] PCP - General 03/14/09 12/08/23 Nathalie Tate MD [address] [place] [address] PCP - General Family Medicine 12/09/23 Alton Alonzo MD [address], [address] [address] Assigned PCP 07/23/12 01/26/22 Alton Alonzo MD [address] , [address] [address] Assigned PCP 02/03/22 08/16/22 Nathalie Tate MD [address] [facility] [place] [address] Assigned PCP 01/27/22 02/02/22 Nathalie Tate MD [address] [facility] [place] [address] Assigned PCP 08/17/22 12/27/22 Alton Alonzo MD [address] [place] [address] Assigned PCP 12/28/22 06/27/23 Nathalie Tate MD [address] [place] [address] Assigned PCP 06/28/23 documented as of this encounter
--- OUTSIDE RECORDS SUMMARY | 2024-03-04 03:49 | XMS_ITS | Encounter Summary ---
Author Name Unknown Organization [place] Address [address] [place] [address] Care Team Providers Care Sdv Pilot/Navigator/Dds Operator Name Role Phone Alton Alonzo MD Primary Care Provide r Nani Sainz [facility] Unavailable [phone] Alton Alonzo MD Unavailable [facility] Unavailable Alton Alonzo MD Unavailable Nathalie Tate MD Unavailable Nathalie Tate MD Unavailable [phone] Alton Alonzo MD Unavailable Nathalie Tate MD Unavailable Nathalie Tate MD Primary Care Provider [phone] Reason for Visit * Reason Onset Date Comments Outreach 07/01/2018 [email or web address] Encounter Details Date Type Department Care Team (Late st Contact Info) Description 07/01/2018 MyC Medical Advice [facility] [address] [place] [address] Eugenie Amador CMA Outreach ([email or web address]) Social History Tobacco Use Types Packs/Day Years Used Date Smoking Tobacco: Every Day Cigarettes 0.5 54.4 Started: 10/20/1968 Smokeless Tobacco: Never Alcohol Use Standard Drinks/Week Comments Yes 0 (1 standard drink = 0.6 oz pure alcohol) 100ml or more daily; recent relapse 08/18/15 Sex and Gender Information Value Date Recorded Sex Assigned at Not on file Gender Identity Not on file Sexual Orientation Not on file documented as of this encounter Miscellaneous Notes * Telephone Encounter - Eugenie Amador CMA - 07/06/2018 12:04 PM CDT Letter sent documented in this encounter Plan of Treatment Not on file documented as of this encounter Visit Diagnoses Not on filedocumented in this encounter Additional Health Concerns Infection Onset Date Last Indicated Resolved Time Rule Out COVID-12/09/2023 12/09/2023 12/09/2023 9:14 PM HEAT AND FROST INSULATOR Assessment Noted Time PHQ-9 Depression Total Score: 14 018 7:14 AM CDT documented as of this encounter Care Teams Sdv Pilot/Navigator/Dds Operator Relationship Specialty Start Date End Date Alton Alonzo MD [address] [address] PCP - General 03/14/09 12/08/23 Nathalie Tate MD [address] [place] [address] PCP - General Family Medicine 12/09/23 Nani Sainz PERL PROGRAMMER Lead Wood Tile Installer Primary Care - CC 10/15/1801/06 Alton Alonzo MD [address] [address] Assigned PCP 07/23/12 01/26/22 [facility] ([facility] ([place]) 05/18/19 07/01/19 Alton Alonzo MD [address] , [address] [place] [address] Assigned PCP 02/03/22 08/16/22 Nathalie Tate MD [address] [place] [address] Assigned PCP 01/27/22 02/02/22 Nathalie Tate MD [address] [place] [address] Assigned PCP 08/17/22 12/27/22 Alton Alonzo MD [address], [address] [place] [address] Assigned PCP 12/28/22 06/27/23 Nathalie Tate MD [address] [place] [address] Assigned PCP 06/28/23 documented as of this encounter
--- OUTSIDE RECORDS SUMMARY | 2024-03-04 03:49 | XMS_ITS | Encounter Summary ---
Author Name Unknown Organization [facility] Address [address] [place] [address] Care Team Providers Care Outside Sales Advertising Executive Name Role Phone Nathalie Tate MD Unavailable [phone] Nathalie Tate MD Primary Care Provider [phone] Encounter Details Date Type Department Care Team (Latest Contact Info) Description 12/09/2023 Travel Social History Tobacco Use Types Packs/Day [...] Transportation General On track( 019 3:46 PM DIAMOND SANDER) Yes Nani Sainz LSW Note: Goal Statement: [...] Rule Out COVID-12/09/2023 12/09/2023 12/09/2023 9:14 PM DIAMOND SANDER Assessment Noted Time PHQ-9 Depression Total Score: 10 022 4:15 PM CDT documented as of this encounter Care Teams Outside Sales Advertising Executive Relationship Specialty Start Date End Date Nathalie Tate MD [address] [place] [address] PCP - General Family Medicine 12/09/23 Nathalie Tate MD [address] [place] [address] Assigned PCP 06/28/23 documented as of this encounter
--- OUTSIDE RECORDS SUMMARY | 2024-03-04 03:49 | XMS_ITS | Encounter Summary ---
Author Name Unknown Organization [place] Address [address] [place] [address] Care Team Providers Care Fuel Cell Binder Name Role Phone Alton Alonzo MD Primary Care Provide r Nani Sainz [facility] Unavailable [phone] Alton Alonzo MD Unavailable [facility] Unavailable [phone] Alton Alonzo MD Unavailable Nathalie Tate MD Unavailable [phone] Nathalie Tate MD Unavailable Alton Alonzo MD Unavailable Nathalie Tate MD Unavailable [phone] Nathalie Tate MD Primary Care Provider [phone] Reason for Visit * Reason Onset Date Comments CD Outpatient 08/04/2017 Encounter Details Date Type Department Care Team ([facility] Contact Info) Description 08/04/2017 Telephone [facility] [address] [place] [address] [facility] FABIANA Bojorquez Outpatient Social History Tobacco Use Types Packs/Day Years Used Date Smoking Tobacco: Every Day Cigarettes 0.5 30 Smokeless Tobacco: Never Alcohol Use Standard Drinks/Week Comments Yes 0 (1 standard drink = 0.6 oz pure alcohol) 100ml or more daily; recent relapse 08/18/15 Sex and Gender Information Value Date Recorded Sex Assigned at Not on file Gender Identity Not on file Sexual Orientation Not on file documented as of this encounter Miscellaneous Notes * Telephone Encounter - Catherine Whittington - 08/04/2017 1:50 PM CDT ----- Message from CLAYTON Perez sent at 08/04/2017 1:18 PM CDT ----- Regarding: Cancel all future IOP CD Phase I appointments for client at [facility] Please arrange to cancel all future mixed IOP CD Phase I appointments for the above client at the [facility] location effective immediately. Client has been DC'd from [facility]. [id number]. 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 ([facility] ([place]) 05/18/19 07/01/19 Alton Alonzo MD [address] , [address] [address] Assigned PCP 02/03/22 08/16/22 Nathalie Tate MD [address] [place] [address] Assigned PCP 01/27/22 02/02/22 Nathalie Tate MD [address] [place] [address] Assigned PCP 08/17/22 12/27/22 Alton Alonzo MD [address], [address] [address] Assigned PCP 12/28/22 06/27/23 Nathalie Tate MD [address] [place] [address] Assigned PCP 06/28/23 documented as of this encounter
--- OUTSIDE RECORDS SUMMARY | 2024-03-04 03:49 | XMS_ITS | Encounter Summary ---
Author Name Unknown Organization [facility] Address [address] [place] [id number] Care Team Providers Care Plant Inspector Name Role Phone Nathalie Tate MD Unavailable [phone] Nathalie Tate MD Primary Care Provider [phone] Reason for Referral * Consultation (Routine) - Pending Review Specialty Diagnoses / Procedures Referred By Lobo falk Referred To Contact Urology Diagnoses Nephrolithiasis Sari Vasquez PA-C [address] [place] [id number] Referral ID Status Reason Start Date Expiration Date V isits Requested Visits Authorized [id number] Pending Review 12/11/2023 12/10/2024 1 1 Question Answer Referral Type: Urology Reason for Referral: Kidney Stones Kidney Stone Type: Acute Scheduling Instructions: [facility] will call you to coordinate care as prescribed your provider. If you don? t hear from a entry level marketing representative within 2 business days, please call . Comments Please be aware that coverage of these services is subject to the terms and limitations of your health insurance plan. Call member services at your health plan with any benefit or coverage questions. [facility] will call you to coordinate care as prescribed your provider. If you don? t hear from a entry level marketing representative within 2 business days, please call . E MANAGER * Home Health Therapies & Aides (Routine: Next available opening) - Pending Review Specialty Diagnoses / Procedures Referred By Lobo falk Referred To Contact Diagnoses Unsteady gait when walking Sari Vasquez PA-C [address] [place] [id number] Referral ID Status Reason Start Date Expiration Date V isits Requested Visits Authorized [id number] Pending Review 12/11/2023 12/10/2024 1 1 Question Answer Reason for Referral: Assisted, Physical Therapy Physical Therapy Eval and Treat for: Gait Training, Home Safety Assessment, Therapeutic Exercise Assisted Eval and Treat for: Complex aftercare Additional Services Needed: Occupational Therapy, Home Health Aide Occupational Therapy Eval and Treat for: ADLs, Home Safety, Bathing, Cognitive Testing Is the patient homebound? Yes Homebound Status (describe the functional limitations that support this patient is confined to his/her home. Medicaid recipients are not required to be homebound.): Patient has difficulty ambulating >100 ft I attest that I saw or will see the patient on this date: 12/11/2023 Provider to follow patient NATHALIE TATE [[id number]] Comments Your provider has ordered home health services. If you have not been contacted within 2 days of your discharge please call the selected Home Care agency listed on your Discharge document. If a Home Care agency is NOT listed, please call [phone]. E MANAGER * Care Coordination (Routine: Next available opening) - Pending Review Specialty Diagnoses / Procedures Referred By Lobo falk Referred To Contact Diagnoses Unsteady gait when walking Sari Vasquez PA-C [address] [place] [address] Referral ID Status Reason Start Date Expiration Date V isits Requested Visits Authorized [id number] Pending Review 12/10/2023 12/09/2024 1 1 Question Answer Reason for Referral: Care Transition Transition: Home care discharge Clinical Staff have discussed the Care Coordination Referral with the patient and/or caregiver: No Comments E MANAGER Reason for Visit * Reason Comments Altered Mental Status * Auth/Cert (Routine) Specialty Diagnoses / Procedures Referred By Lobo t Referred To Contact Med Surg Diagnoses Dehydration Confusion Elevated troponin Syncope, unspecified syncope type Hematuria, unspecified type Hematuria, unspecified type Dehydration Syncope, unspecified syncope type Confusion Elevated troponin Observation Dept [address] [place] [address] Referral ID Status Reason Start Date Expiration Date Visits Re quested Visits Authorized [id number] 1 1 Encounter Details Date Type Department Care Team (Late st Contact Info) Description 12/09/2023 12:30 PM CRANE MANAGER - 12/11/2023 2:12 PM CRANE MANAGER [facility] Observation Dept [address] [place] [address] Akash Ramirez MD [facility] [address] [place], [place] [id number] Trini Mohan MD [facility] [address] [place], [place] [id number] Mariposa Cooper MD [address] [place], [place] [id number] Unsteady gait when walking (Primary Dx); Dehydration; Syncope, unspecified syncope type; Confusion; Elevated troponin; Hematuria, unspecified type; Dementia (H); Nephrolithiasis Discharge Disposition: Home or Self Care Social [...] Sign Reading Time Taken Comments Blood Pressure 125/63 12/11/2023 12:18 PM CRANE MANAGER Pulse 84 12/11/2023 12:18 PM CRANE MANAGER Temperature 36.6 ??C (97.9 ??F) 12/11/2023 12:[address] Respiratory Rate 16 12/11/2023 12:18 PM CRANE MANAGER Oxygen Saturation 98% 12/11/2023 12:18 PM CRANE MANAGER Inhaled Oxygen Concentration - - Weight 70.6 kg (155 lb 9.6 oz) 12/09/2023 10:00 PM CRANE MANAGER Height 167.6 cm (5' 6) 12/09/2023 10:00 PM CRANE MANAGER Body Mass Index 25.11 12/09/2023 10:00 PM CRANE MANAGER documented in this encounter Discharge Summaries * Sari Vasquez PA-C - 12/11/2023 1:44 PM CST [facility] Discharge Summary Jed Alamo Age: [age] year old Date of : 1955 Date of Admission: 12/09/2023 Date of Discharge:: 12/11/2023 Admitting Physician: Mariposa Cooper MD Discharge Physician: Sari Vasquez PA-C Primary Physician: Nathalie Tate Primary Discharge Diagnoses: Diarrhea presume due to recently started Donepezil SILVANO Generalized Weakness Dehydration Hospital Course: For detail history, please refer to H & P from 12/09/2023. In brief, this is a 68 year old male with PMH significant for prior strokes, cognitive decline / dementia (followed by [facility], most recently being seen by Dr. Sunny Hayes), CKD 3a, hyperlipidemia, BPH, nephrolithiasis, prior tobacco use, and alcohol dependence (currently in remission, remains on disulfiram).Patient presented to the ER for evaluation after a fall while showering 12/08. Patient did not lose consciousness, but was less responsive and lethargic. Patient had been having increased agitation, pacing, and forgetfulness. Seen by Dr. Hayes roughly 2 weeks prior to presentation and started on donepezil 5 mg (x 4 weeks until would increase to 10 mg). On 12/02, patient and flew to [place] to visit their trauma surgeon daughter and SILVANA. Patient's notes that he was in very good state of health and very lucid (best he'd been in months)on 12/03, but that on 12/04 he started having loose, watery diarrhea 4-5x daily. Diarrhea continued and starting on 12/05, he started having worsening confusion at night with wandering when he would getup to use the bathroom. was helping him to shower on 12/08 evening when after standing for 10 minutes, she heard patient fall. He was less responsive and lethargic. Patient's was able to move him to a seated position and she and SILVANA gave patient electrolyte packets in water to drink for over several hours. By 10 PM, patient was able to get up once their daughter was home. On 12/09, they flew home to [place] and patient's took him to the neurology clinic where it was recommendedthat they come to the ER for further evaluations. In the ER, patient was afebrile, HR 68, BP 140/69, RR 20, 100% on room air. BMP with Na 138, K 4.0,Cl 105, CO2 21, BUN 28.8, Cr 1.35, glucose 117. CBC unremarkable with WBC 8.0, Hgb 13.9, Plt 197. Troponin only slightly above normal at 24, 24 and flat. Lactic acid 0.8. Patient does have ketones inhis urine, though notes he has not been eating much with the diarrhea. Blood cultures were sent in the ER. CT head notes no intracranial hemorrhage, mass, or recent infarct. Does note diffuse cerebral volume loss and cerebral white matter changes consistent with chronic small vessel ischemic disease. CT abdomen pelvis completed and most notable is presence of renal and ureteral stones. Not significantly changed nonspecific bilateral perinephric stranding. Mild nonspecific bladder wall thickening. Otherwise no acute findings. Chest xray with no acute findings. Did note possible right upper lobe pulmonary nodule which should have non-emergent outpatient follow up imaging. Diarrhea Fall with lethargy Dehydration in setting of ongoing diarrhea Deconditioning Would not call this event syncope as heard when patient fell and he was less responsive and lethargic, but without clearly defined loss of consciousness. Fall occurred after patient had been standing upright for 10 minutes on day 5 of ongoing diarrhea and lethargy improved after drinking electrolyte fluids. Favor etiology of dehydration in setting of ongoing diarrhea. - Stopped donepezil on admission as this is most likely etiology of new diarrhea. - no further loose stools overnight - now tolerating a diet - follow up outpatient neurology follow up and consideration of a different cholinesterase inhibitor. History of CVA Cognitive decline / dementia History of previous stroke including right basal ganglia. Patient with history of residual left facial droop, which was present at admission. Patient is followed by [facility], most recently being seen by Dr. Sunny Hayes. - Patient had been having increased agitation, pacing, and forgetfulness. Seen by Dr. Hayes roughly 2 weeks prior to presentation and started on donepezil 5 mg (x 4 weeks until would increase to 10 mg). - On 12/02, patient and flew to [place] to visit their trauma surgeon daughter and SILVANA. Patient's notes that he was in very good state of health and very lucid (best he'd been in months) on 12/03, but that on 12/04 he started having loose, watery diarrhea 4-5x daily. Diarrhea has been ongoing since that time. - Timeline fits with diarrhea likely being side effect of newly started donepezil. - Discontinued donepezil at this time. Admitting provider briefly discussed with neurology at time of admission and agree with plan to stop donepezil. - MRI Brain was negative for acute pathology - PT recommends home with home cares - follow up outpatient neurology follow up and consideration of a different cholinesterase inhibitor. SILVANO on CKD 3a Creatinine on admission 1.35 improved to 1.04 after IVF hydration - monitor Nephrolithiasis Right UPJ stone BPH 12/09 CT notes a 5 mm stone within right proximal ureter at UPJ. No significant hydronephrosis. Patient denies any pain. Urine culture was negative. Nursing denies seeing any hematuria. - continued AS400 CONSULTANT Flomax. - strain urine at home - a referral was placed to follow up with Urology in clinic Hyperlipidemia Continued statin. Alcohol dependence Patient is currently in remission as far as knows and patient is a poor historian given dementia. Continued AS400 CONSULTANT disulfiram. Abnormal lung imaging findings Prior tobacco use Chest x-ray notes a nodular opacity at right upper lung measuring up to 7mm. Recommended nonemergent follow-up with chest CT. CT abdomen pelvis also notes stable left lower lobe pulmonary nodule measuring 4 mm compared to 08/16/19 CT. Recommend PCP to follow up with chest CT. Procedures/Imaging: Results for orders placed or performed during the hospital encounter of 12/09/[address] w/o contrast Narrative CT OF THE HEAD WITHOUT CONTRAST 12/09/2023 2:53 PM COMPARISON: Head CT 01/19/2022. HISTORY: Head injury, syncope. TECHNIQUE: [address] images of the head were acquired without IV contrast material. FINDINGS: There is moderate diffuse cerebral volume loss. There are extensive confluent areas of decreased density in the cerebral white matter bilaterally that are consistent with sequela of chronic small vessel ischemic disease. The ventricles and basal cisterns are within normal limits in configuration given the degree of cerebral volume loss. There is no midline shift. There are no extra-axial fluid collections. No intracranial hemorrhage, mass or recent infarct. The visualized paranasal sinuses are well-aerated. There is no mastoiditis. There are no fractures of the visualized bones. Impression IMPRESSION: Diffuse cerebral volume loss and cerebral white matter changes consistent with chronic small vessel ischemic disease. No evidence for acute intracranial pathology. Radiation dose for this scan was reduced using automated exposure control, adjustment of the mA and/or kV according to patient size, or iterative reconstruction technique ROB NEWTON MD SYSTEM ID: [id number] Chest XR, PA & LAT Narrative CHEST TWO VIEWS 12/09/2023 3:44 PM HISTORY: syncope, weakness COMPARISON: 01/19/2022. Impression IMPRESSION: Cardiopericardial silhouette is within normal limits. Aortic arch calcification. No focal airspace consolidation. No pleural effusion. No discernible pneumothorax. No acute displaced fracture. Nodular opacity projecting at the right upper lung measuring up to 7 mm which may represent pulmonary vascular shadows or a pulmonary nodule. Recommend nonemergent follow-up with chest CT. LUIS FELIPE HORTON MD SYSTEM ID: [id number] CT Abdomen Pelvis w/o Contrast Narrative CT ABDOMEN PELVIS W/O CONTRAST 12/09/2023 2:54 [...] spine. Remote superior endplate fracture of T12. Impression IMPRESSION: 1. There is a 5 mm calculus within the right proximal ureter at the ureteropelvic junction. No significant hydronephrosis. 2. Multiple additional nonobstructing bilateral renal calculi. 3. Nonspecific bilateral perinephric stranding does not appear significantly changed. Mild nonspecific bladder wall thickening. These findings can be correlated with urinalysis. LUIS FELIPE HORTON MD SYSTEM ID: [id number] MR Brain w/o & w Contrast Narrative EXAM: MR BRAIN W/O and W CONTRAST LOCATION: [facility] DATE: 12/09/2023 INDICATION: Patient with history of prior strokes, as well as dementia. Recent increase in agitation, started on donepezil, but did not tolerate due to GI symptoms. Rule out new acute process. Suspect progression of dementia. COMPARISON: 07/14/2020 CONTRAST: 7mL gadavist TECHNIQUE: Routine multiplanar multisequence head MRI without [...] pathologic contrast enhancement. Small chronic infarctions left cerebellum, marin, right basal ganglia; similar to prior. SELLA: No abnormality accounting for technique. OSSEOUS STRUCTURES/SOFT TISSUES: Normal marrow signal. The major intracranial vascular flow voids are maintained. ORBITS: No abnormality accounting for technique. SINUSES/MASTOIDS: No paranasal sinus mucosal disease. No middle ear or mastoid effusion. Impression IMPRESSION: 1. No acute infarct, mass, mass effect, or hemorrhage. 2. Chronic ischemic changes, as described. 3. Moderate atrophy. Allergies: Allergies Allergen Reactions Sulfa Antibiotics Rash Subjective: Patient is without complaints today. More alert and conversant than yesterday. Denies any pain. Tolerating a diet. No further diarrhea reported by nursing. Physical Exam: Blood pressure (!) 148/62, pulse 58, temperature 98.1 ??F (36.7 ??C), temperature source Oral, resp. rate 15, height 1.676 m (5' 6), weight 70.6 kg (155 lb 9.6 oz), SpO2 99%. General: Alert, interactive, NAD HEENT: AT/NC Resp: clear to auscultation bilaterally, no crackles or wheezes Cardiac: regular rate and rhythm, no murmur Abdomen: Soft, nontender, nondistended. +BS. No rebound or guarding. Extremities: No LE edema Skin: Warm and dry Neuro: Alert & follows commands, no focal deficits, moves all extremities equally Discharge Medicatios: Current Discharge Medication List START taking these medications Details acetaminophen (TYLENOL) 325 MG tablet Take 2 tablets (650 mg) by mouth every 4 hours as needed for mild pain or other (and adjunct with moderate or severe pain or per patient request) Associated Diagnoses: Unsteady gait when walking CONTINUE these medications which have NOT CHANGED Details aspirin 81 MG EC tablet Take 81 mg by mouth every evening atorvastatin (LIPITOR) 40 MG tablet Take 1 tablet (40 mg) by mouth daily Qty: 90 tablet, Refills: 3 Associated Diagnoses: Mixed hyperlipidemia cyanocobalamin (CYANOCOBALAMIN) 1000 MCG/ML injection Inject 1 mL into the muscle every 30 days disulfiram (ANTABUSE) 250 MG tablet Take 2 tablets (500 mg) by mouth daily Qty: 180 tablet, Refills: 3 Associated Diagnoses: Alcoholism (H) escitalopram (LEXAPRO) 20 MG tablet Take 60 mg by mouth every evening ibuprofen (ADVIL/MOTRIN) 600 MG tablet Take 600 mg by mouth every 6 hours as needed Multiple Vitamins-Iron (TAB-A-CATRACHO/IRON) TABS Take 1 capsule by mouth daily Qty: 100 tablet, Refills: 3 Associated Diagnoses: Alcoholism (H) tamsulosin (FLOMAX) 0.4 MG capsule Take 0.8 mg by mouth every evening thiamine (B-1) 100 MG tablet Take 100 mg by mouth every evening vitamin D2 (ERGOCALCIFEROL) 15786 units (1250 mcg) capsule Take 1 capsule by mouth once a week Qty: 12 capsule, Refills: 1 Associated Diagnoses: Alcoholism (H) STOP taking these medications donepezil (ARICEPT) 10 MG tablet Comments: Reason for Stopping: Instructions Given to Patient as Discharge: Discharge Procedure Orders Primary Care - Care Coordination Referral Standing Status: Future Referral Priority: Routine: Next available opening Referral Type: Care Coordination Number of Visits Requested: 1 Home Care Referral Referral Priority: Routine: Next available opening Referral Type: Home Health Therapies & Aides Number of Visits Requested: [address] Referral Standing Status: Future Referral Priority: Routine Referral Type: Consultation Requested Specialty: Urology Number of Visits Requested: 1 Reason for your hospital stay Order Comments: You were admitted to the hospital with dehydration and diarrhea likely from a new medication you started. Activity Order Comments: Your activity upon discharge: activity as tolerated Order Specific Question Answer Comments Is discharge order? Yes Follow-up and recommended labs and tests Order Comments: Follow up with Neurology in clinic. Your Donepezil was stopped as it was causing your diarrhea. Follow up with PCP in one week. You were also incidentally noted to have a kidney stone. Strain your urine and monitor for any signs of decreased urine output or fever. A follow up referral to urology was made for you. Follow up with PCP as a chest CT is recommended for monitoring of a lung nodule Walker Order for DME - ONLY FOR DME Order Comments: I, the undersigned, certify that the above prescribed supplies are medically necessary for this patient and is both reasonable and necessary in reference to accepted standards of medical and necessary in reference to accepted standards of medical practice in the treatment of this patient's condition and is not prescribed as a convenience. Order Specific Question Answer Comments Medical Equipment (DME) Supplier: [facility] PATIENT INSTRUCTIONS: If you did not receive this ordered item today, please contact [facility] for availability ([place] Locations: [phone], [place]: [phone]). Start Date: 12/10/2023 Walker Type: Standard (2 Wheel) Diagnosis: R26.89 - Impaired Gait and Mobility Diet Order Comments: Follow this diet upon discharge regular diet Order Specific Question Answer Comments Is discharge order? Yes Pending Tests at Discharge: none Discharge Disposition: Discharged to home Sari Vasquez MS [facility] Hospitalist Service Pager [phone] >30 minutes was spent in discharge planning, care coordination, physical examination and medication reconciliation on the date of discharge, 12/11/2023 E MANAGER Associated attestation - oRdney Jimenez MD - 12/11/2023 3:40 PM CRANE MANAGER Physician Attestation I have reviewed and discussed with the advanced practice provider their discharge plan for Jed Alamo. I did not participate in a shared visit by interviewing or examining the patient and thisshould be billed as an advanced practice provider only discharge. Rodney Jimenez MD Date of Service (when I saw the patient): I did not personally see this patient today. documented in this encounter Medications at Time of Discharge Medication Sig Dispensed Refills Start Date End Date aspirin 81 MG EC tablet Take 81 mg by mouth every morning cyanocobalamin (CYANOCOBALAMIN) 1000 MCG/ML injection Inject 1 mL into the muscle every 30 days escitalopram (LEXAPRO) 20 MG tablet Take 60 mg by mouth every evening 01/31/2022 Multiple Vitamins-Iron (TAB-A-CATRACHO/IRON) TABSIndications:Alcoholi sm (H) Take 1 capsule by mouth daily 100 tablet 3 06/03/2019 tamsulosin (FLOMAX) 0.4 MG capsule Take 0.8 mg by mouth every evening 03/17/2020 thiamine (B-1) 100 MG tablet Take 100 mg by mouth every evening vitamin D2 (ERGOCALCIFEROL) 61985 units (1250 mcg) capsuleIndications:Alcoh olism (H) Take 1 capsule by mouth once a week 12 capsule 1 10/06/2023 acetaminophen (TYLENOL) 325 MG tabletIndications:Unstea dy gait when walking Take 2 tablets (650 mg) by mouth every 4 hours as needed for mild pain or other (and adjunct with moderate or severe pain or per patient request) 12/11/2023 12/31/2023 atorvastatin (LIPITOR) 40 MG tabletIndications:Mixed hyperlipidemia Take 1 tablet (40 mg) by mouth daily 90 tablet 3 06/20/2023 12/28/2023 disulfiram (ANTABUSE) 250 MG tabletIndications:Alcoho lism (H) Take 2 tablets (500 mg) by mouth daily 180 tablet 3 06/20/2023 12/28/2023 ibuprofen (ADVIL/MOTRIN) 600 MG tablet Take 600 mg by mouth every 6 hours as needed 07/23/2022 12/28/2023 documented as of this encounter Progress Notes * Leyla Dowling RN - 12/11/2023 10:06 AM CST Care Management Discharge Note Discharge Date: 12/11/2023 Discharge Disposition: Home, Home Care Discharge Services: None Discharge DME: None Discharge Transportation: family or friend will provide Patient/family educated on Medicare website which has current facility and service quality ratings:yes Education Provided on the Discharge Plan: Yes Persons Notified of Discharge Plans: Pt Patient/Family in Agreement with the Plan: yes Additional Information: Planning for discharge to home with HC RN/PT/OT/LABORATORY DIRECTOR through [facility]. Orders completed and sent. No further needs anticipated. Update 1200: Called and updated , she will pick-up at front entrance at 1400. She will call thenursing station once here, she would like to ensure pt has his phone, phone roller checker, watch and glasses. Updated bedside RN. Leyla Dowling FLORIST'S DECORATOR Inpatient Care Coordination [facility] E MANAGER * Alessia Tolliver RN - 12/11/2023 4:00 AM CST PRIMARY DIAGNOSIS: Dehydration/ AMS OUTPATIENT/OBSERVATION GOALS TO BE MET BEFORE DISCHARGE: ADLs back to baseline: No Activity and level of assistance: Up with standby assistance. Pain status: Pain free. Return to near baseline physical activity: Yes Aircraft Engine Mechanic Nurse Safe discharge environment identified: Yes Barriers to discharge: Yes Entered by: Alessia Tolliver RN 12/11/2023 5:07 AM VSS. A&Ox4.External cath patent for straining urine & incontinence. Pt denies pain. UC, BC pending. Mg, K, Phos protocols, recheck this am. Will cont w/ POC, pt may be able to discharge home w/ today. Please review provider order for any additional goals. Nurse to notify provider when observation goals have been met and patient is ready for discharge. E MANAGER * Alessia Tolliver RN - 12/11/2023 12:00 AM CST PRIMARY DIAGNOSIS: Dehydration/ AMS OUTPATIENT/OBSERVATION GOALS TO BE MET BEFORE DISCHARGE: ADLs back to baseline: No Activity and level of assistance: Up with standby assistance. Pain status: Pain free. Return to near baseline physical activity: Yes Aircraft Engine Mechanic Nurse Safe discharge environment identified: Yes Barriers to discharge: Yes Entered by: Alessia Tolliver RN 12/11/2023 5:05 AM VSS. A&Ox4. External cath patent for straining urine & incontinence. Pt denies pain. Will cont w/ POC, pt may be able to discharge today. Please review provider order for any additional goals. Nurse to notify provider when observation goals have been met and patient is ready for discharge. E MANAGER * Catarino Russ RN - 12/10/2023 11:24 PM CST PRIMARY DIAGNOSIS: Dehydration/ AMS OUTPATIENT/OBSERVATION GOALS TO BE MET BEFORE DISCHARGE: ADLs back to baseline: Yes Activity and level of assistance: Up with standby assistance. Pain status: Pain free. Return to near baseline physical activity: Yes Aircraft Engine Mechanic Nurse Safe discharge environment identified: Yes Barriers to discharge: Yes Entered by: Catarino Russ RN 12/10/2023 11:25 PM VSS. Pt disoriented to situation. External cath patent for straining urine, nothing noted after straining. Pt denies pain. Ambulated in hallway x 1. PIV SL. Discharge penidng. Please review provider order for any additional goals. Nurse to notify provider when observation goals have been met and patient is ready for discharge. E MANAGER * Sari Vasquez PA-C - 12/10/2023 1:21 PM CST [facility] Internal Medicine Progress Note Date of Service: 12/10/2023 Patient: Jed Alamo Admission Date: 12/09/2023 Assessment & Plan: Jed Alamo is a 68 year old man with PMH significant for prior strokes, cognitive decline / dementia (followed by [facility], most recently being seen by Dr. Sunny Hayes), CKD 3a, hyperlipidemia, BPH, nephrolithiasis, prior tobacco use, and alcohol dependence (currently in remission, remains on disulfiram). Patient presented to the ER for evaluation after a fall while showering 12/08. Patient did not lose consciousness, but was less responsive and lethargic. Patient had been having increased agitation, pacing, and forgetfulness. Seen by Dr. Hayes roughly 2 weeks prior to presentation and started on donepezil 5 mg (x 4 weeks until would increase to 10 mg). On 12/02, patient and flew to [place] to visit their trauma surgeon daughter and SILVANA. Patient's notes that he was in very good state of health and very lucid (best he'd been in months)on 12/03, but that on 12/04 he started having loose, watery diarrhea 4-5x daily. Diarrhea continued and starting on 12/05, he started having worsening confusion at night with wandering when he would getup to use the bathroom. was helping him to shower on 12/08 evening when after standing for 10 minutes, she heard patient fall. He was less responsive and lethargic. Patient's was able to move him to a seated position and she and SILVANA gave patient electrolyte packets in water to drink for over several hours. By 10 PM, patient was able to get up once their daughter was home. On 12/09, they flew home to [place] and patient's took him to the neurology clinic where it was recommendedthat they come to the ER for further evaluations. In the ER, patient was afebrile, HR 68, BP 140/69, RR 20, 100% on room air. BMP with Na 138, K 4.0,Cl 105, CO2 21, BUN 28.8, Cr 1.35, glucose 117. CBC unremarkable with WBC 8.0, Hgb 13.9, Plt 197. Troponin only slightly above normal at 24, 24 and flat. Lactic acid 0.8. Patient does have ketones inhis urine, though notes he has not been eating much with the diarrhea. Blood cultures were sent in the ER. CT head notes no intracranial hemorrhage, mass, or recent infarct. Does note diffuse cerebral volume loss and cerebral white matter changes consistent with chronic small vessel ischemic disease. CT abdomen pelvis completed and most notable is presence of renal and ureteral stones. Not significantly changed nonspecific bilateral perinephric stranding. Mild nonspecific bladder wall thickening. Otherwise no acute findings. Chest xray with no acute findings. Did note possible right upper lobe pulmonary nodule which should have non-emergent outpatient follow up imaging. Daily Update 12/10/23: No further loose stools overnight. Evaluated by PT and recommend home with home cares. I called the who is ill with a respiratory illness at home. She will plan to get checked out today herself at a clinic. Will keep patient here overnight and likely discharge home when is feeling better as she is his after school caregiver. Diarrhea Fall with lethargy Dehydration in setting of ongoing diarrhea Deconditioning Would not call this event syncope as heard when patient fell and he was less responsive and lethargic, but without clearly defined loss of consciousness. Fall occurred after patient had been standing upright for 10 minutes on day 5 of ongoing diarrhea and lethargy improved after drinking electrolyte fluids. Favor etiology of dehydration in setting of ongoing diarrhea. - Stopped donepezil on admission as this is most likely etiology of new diarrhea. - no further loose stools overnight - now tolerating a diet - Anticipate that patient should be able to discharge home tomorrow with continued outpatient neurology follow up and consideration of a different cholinesterase inhibitor. History of CVA Cognitive decline / dementia History of previous stroke including right basal ganglia. Patient with history of residual left facial droop, which was present at admission. Patient is followed by [facility], most recently being seen by Dr. Sunny Hayes. - Patient had been having increased agitation, pacing, and forgetfulness. Seen by Dr. Hayes roughly 2 weeks prior to presentation and started on donepezil 5 mg (x 4 weeks until would increase to 10 mg). - On 12/02, patient and flew to [place] to visit their trauma surgeon daughter and SILVANA. Patient's notes that he was in very good state of health and very lucid (best he'd been in months) on 12/03, but that on 12/04 he started having loose, watery diarrhea 4-5x daily. Diarrhea has been ongoing since that time. - Timeline fits with diarrhea likely being side effect of newly started donepezil. - Discontinued donepezil at this time. Admitting provider briefly discussed with neurology at time of admission and agree with plan to stop donepezil. - MRI Brain was negative for acute pathology - PT recommends home with home cares - Anticipate that patient should be able to discharge home tomorrow with continued outpatient neurology follow up and consideration of a different cholinesterase inhibitor. SILVANO on CKD 3a Creatinine on admission 1.35 improved to 1.04 after IVF hydration - monitor Nephrolithiasis Right [facility] stone BPH 12/09 CT notes a 5 mm stone within right proximal ureter at [facility]. No significant hydronephrosis. If any worsening renal function, could consider repeating with renal US to evaluate change. Patient denies any pain. Urine culture is negative. Nursing denies seeing any hematuria. - continue AS400 CONSULTANT Flomax. - strain urine - Monitor ins/outs. Bladder scan if decreased output. - follow up outpatient with Urology Hyperlipidemia Continue statin. Alcohol dependence Patient is currently in remission as far as knows and patient is a poor historian given dementia. Continue AS400 CONSULTANT disulfiram. Patient's notes that while patient is no longer driving, he has been known to steal the car and drink if given the chance, so disulfiram continues as a medication. EtOH level on presentation was < 0.01. Abnormal lung imaging findings Prior tobacco use Chest x-ray notes a nodular opacity at right upper lung measuring up to 7mm. Recommended nonemergent follow-up with chest CT. CT abdomen pelvis also notes stable left lower lobe pulmonary nodule measuring 4 mm compared to 08/16/19 CT. Recommend PCP to follow up with chest CT. CODE: full DVT: scd Diet/fluids: regular Disposition: likely home with on 12/11/23 Sari Vasquez MS [employer] Hospitalist Physician Building Trades Teacher [facility] Subjective & Interval Hx: Patient is without complaints He denies any pain. He is unsure if he had diarrhea overnight. Last 24 hr care team notes reviewed. ROS: 4 point ROS including Respiratory, CV, GI and , other than that noted in the HPI, is negative. Physical Exam: Blood pressure (!) 158/74, pulse 70, temperature 98 ??F (36.7 ??C), temperature source Oral, resp. rate 16, height 1.676 m (5' 6), weight 70.6 kg (155 lb 9.6 oz), SpO2 100%. General: sleeping in bed, easily arousable, frail appearing HEENT: AT/NC Resp: clear to auscultation bilaterally, no crackles or wheezes Cardiac: regular rate and rhythm, no murmur Abdomen: Soft, nontender, nondistended. +BS. No HSM or masses, no rebound or guarding. Extremities: No LE edema Skin: Warm and dry, no jaundice or rash Neuro: Alert & oriented to person and tells me it is 2023. Unable to recall how he fell at home. moves all extremities equally Labs & Images: Reviewed in Epic Medications: Current Facility-Administered Medications Medication acetaminophen (TYLENOL) tablet 650 mg Or acetaminophen (TYLENOL) Suppository 650 mg aspirin EC tablet 81 mg atorvastatin (LIPITOR) tablet 40 mg disulfiram (ANTABUSE) tablet 500 mg escitalopram (LEXAPRO) tablet 60 mg heparin ANTICOAGULANT injection 5,000 Units loperamide (IMODIUM) capsule 2 mg melatonin tablet 1 mg ondansetron (ZOFRAN ODT) ODT tab 4 mg Or ondansetron (ZOFRAN) injection 4 mg senna-docusate (SENOKOT-S/PERICOLACE) 8.6-50 MG per tablet 1 tablet Or senna-docusate (SENOKOT-S/PERICOLACE) 8.6-50 MG per tablet 2 tablet tamsulosin (FLOMAX) capsule 0.8 mg thiamine (B-1) tablet 100 mg E MANAGER Associated attestation - Rodney Jimenez MD - 12/10/2023 3:18 PM CRANE MANAGER Physician Attestation I have reviewed and discussed with the advanced practice provider their history, physical and plan for Jed Alamo. I did not participate in a shared visit; this is an advanced practice provider only visit. Rodney Jimenez MD Date of Service (when I saw the patient): I did not personally see this patient today. * Conchita Manzano PT - 12/10/2023 12:52 PM CST [facility] OUTPATIENT PHYSICAL THERAPY EVALUATION PLAN OF TREATMENT FOR OUTPATIENT REHABILITATION (COMPLETE FOR INITIAL CLAIMS ONLY) Patient's Last Name, First Name, M.I. Date of : 1955 Jed Alamo Provider's Name [facility] Onset Date: 12/09/23 Start of Care Date: (P) 12/10/23 Type: _X_PT ___OT ___SLP Medical Diagnosis: (P) fall, dementia PT Diagnosis: (P) Impaired functional mobility Visits from SOC: 1 See note for plan of treatment, functional goals and certification details I CERTIFY THE NEED FOR THESE SERVICES FURNISHED UNDER THIS PLAN OF TREATMENT AND WHILE UNDER MY CARE (Physician co-signature of this document indicates review and certification of the therapy plan). 12/10/23 0800 Appointment Info Signing Clinician's Name / Credentials (PT) Conchita Manzano PT Quick Adds Quick Adds Certification Living Environment People in Home spouse Current Living Arrangements house Home Accessibility stairs within home Number of Stairs, Within Home, Primary seven Stair Railings, Within Home, Primary railings safe and in good condition Transportation Anticipated family or friend will provide Living Environment Comments Pt reports living in a 4 level split home. When asked if his bedroom isupstairs pt reports, It's off to the west Self-Care Usual Activity Tolerance good Current Activity Tolerance moderate Equipment Currently Used at Home none Fall history within last six months yes Number of times patient has fallen within last six months 1 Activity/Exercise/Self-Care Comment Pt reports ambulating without a device for a short distance, though doesn't use a device in the community either. Pt reports being independent with all ADLs. Pt reports helping with some of the cooking and cleaning. General Information Onset of Illness/Injury or Date of Surgery 12/09/[address] Mariposa Cooper Patient/Family Therapy Goals Statement (PT) Pt didn't state Pertinent History of Current Problem (include personal factors and/or comorbidities that impact thePOC) Per medical chart: Jed Alamo is a 68 year old man with PMH significant for prior strokes, cognitive decline / dementia, CKD 3a, hyperlipidemia, BPH, nephrolithiasis, prior tobacco use, and alcohol dependence (currently in remission, remains on disulfiram). Patient presented to the ER for evaluation after a fall while showering 12/08. Patient did not lose consciousness, but was less responsive and lethargic. Existing Precautions/Restrictions fall General Observations Pt lying in bed Cognition Affect/Mental Status (Cognition) low arousal/lethargic Follows Commands (Cognition) follows one-step commands;over 90% accuracy Safety Deficit (Cognition) moderate deficit;insight into deficits/self-awareness Memory Deficit (Cognition) moderate deficit;short-term memory Cognitive Status Comments Pt oriented to name, year, and being in hospital. Pt not oriented to month or date. Pt also not aware of why he is in the hospital. Pain Assessment Patient Currently in Pain No Integumentary/Edema Integumentary/Edema Comments No deficits observed Posture Posture Forward head position;Protracted shoulders Range of Motion (ROM) Range of Motion ROM is WFL Strength (Manual Muscle Testing) Strength (Manual Muscle Testing) Deficits observed during functional mobility Strength Comments Deficits in L LE strength observed during gait Bed Mobility Bed Mobility supine-sit Supine-Sit [place] (Bed Mobility) supervision Comment, (Bed Mobility) sup > sit without rail with S Transfers Transfers sit-stand transfer Sit-Stand Transfer Comment, (Sit-Stand Transfer) Sit > stand from bed without AD with SBA Gait/Stairs (Locomotion) [place] Level (Gait) contact guard Distance in Feet (Gait) 15' (eval) + 120' (treatment) Comment, (Gait/Stairs) Pt amb without AD with CGA Balance Balance Comments Impaired dynamic standing balance requiring CGA without a device or SBA with FWW for safe mobility Sensory Examination Sensory Perception Comments NT due to impaired cognition Coordination Coordination Comments tremors in UEs and LEs Muscle Tone Muscle Tone Comments resting tremors noted in UEs and LEs while sitting on EOB (R > L) Clinical Impression Criteria for Skilled Therapeutic Intervention Yes, treatment indicated PT Diagnosis (PT) Impaired functional mobility Influenced by the following impairments decreased LE strength, impaired balance, impaired cognition Functional limitations due to impairments Impaired gait, increased falls risk, supervised mobility with AD Clinical Presentation (PT Evaluation Complexity) stable Clinical Presentation Rationale Pt medically stable with multiple comorbidities, supportive Clinical Decision Making (Complexity) low complexity - 10 min Planned Therapy Interventions (PT) balance training;bed mobility training;gait training;home exercise program;neuromuscular re-education;patient/family education;ROM (range of motion);stair training;strengthening;transfer training;progressive activity/exercise;risk factor education;home program je hope Risk & Benefits of therapy have been explained evaluation/treatment results reviewed;care plan/treatment goals reviewed;risks/benefits reviewed;current/potential barriers reviewed;participants voiced agreement with care plan;participants included;patient Therapy Certification Start of care date 12/10/23 Certification date from 12/10/23 Certification date to 12/11/23 Medical Diagnosis fall, dementia Physical Therapy Goals PT Frequency Daily PT Predicted Duration/Target Date for Goal Attainment 12/11/23 PT Goals Bed Mobility;Transfers;Gait;Stairs PT: Bed Mobility Independent;Supine to/from sit PT: Transfers Supervision/stand-by assist;Sit to/from stand;Assistive device PT: Gait Supervision/stand-by assist;Rolling walker;150 feet PT: Stairs Greater than 10 stairs;Minimal assist (with rail like at home (? single/side)) PT Discharge Planning PT Plan progress gait with FWW with increased L foot clearance, 1 flight stairs with improved foot placement, standing balance/LE strengthening HEP (issue FWW if doesn't have - orders in chart) PT Discharge Recommendation (DC Rec) home with assist;home with home care physical therapy PT Rationale for DC Rec Pt appears to be slightly below baseline with mobility. Per chart, pt was ambulating without a device. Pt currently SBA with transfers and gait using a FWW due to impaired balance and decreased L foot clearance. Pt able to negotiate 12 steps with CGA. Recommend pt return home with S from with all mobility, using a FWW for improved balance/safety. CGA on stairs for safety and A for showering and with ADLs as needed. Recommend HHPT to increase LE strength and balance and progress safety and independence with gait. PT also to assess safety of mobility in the home environment and make recommendations for DME as needed (pt will benefit from shower chair) PT Brief overview of current status ind bed mobility, SBA transfers and gait with FWW - decreased Lfoot clearance PT Equipment Needed at Discharge shower chair;walker, rolling E MANAGER Associated attestation - Mariposa Cooper MD - 12/11/2023 7:43 AM CRANE MANAGER Physician Attestation I agree with the information in this note. Mariposa Cooper MD documented in this encounter H&P Notes * Mariposa Cooper MD - 12/09/2023 7:00 PM CST [facility] History and Physical Hospitalist Date of Admission: 12/09/2023 Assessment & Plan Jed Alamo is a 68 year old man with PMH significant for prior strokes, cognitive decline / dementia (followed by [facility], most recently being seen by Dr. Sunny Hayes), CKD 3a, hyperlipidemia, BPH, nephrolithiasis, prior tobacco use, and alcohol dependence (currently in remission, remains on disulfiram). Patient presented to the ER for evaluation after a fall while showering 12/08. Patient did not lose consciousness, but was less responsive and lethargic. Patient had been having increased agitation, pacing, and forgetfulness. Seen by Dr. Hayes roughly 2 weeks prior to presentation and started on donepezil 5 mg (x 4 weeks until would increase to 10 mg). On 12/02, patient and flew to [place] to visit their trauma surgeon daughter and SILVANA. Patient's notes that he was in very good state of health and very lucid (best he'd been in months)on 12/03, but that on 12/04 he started having loose, watery diarrhea 4-5x daily. Diarrhea continued and starting on 12/05, he started having worsening confusion at night with wandering when he would getup to use the bathroom. was helping him to shower on 12/08 evening when after standing for 10 minutes, she heard patient fall. He was less responsive and lethargic. Patient's was able to move him to a seated position and she and SILVANA gave patient electrolyte packets in water to drink for over several hours. By 10 PM, patient was able to get up once their daughter was home. On 12/09, they flew home to [place] and patient's took him to the neurology clinic where it was recommendedthat they come to the ER for further evaluations. In the ER, patient was afebrile, HR 68, BP 140/69, RR 20, 100% on room air. BMP with Na 138, K 4.0,Cl 105, CO2 21, BUN 28.8, Cr 1.35, glucose 117. CBC unremarkable with WBC 8.0, Hgb 13.9, Plt 197. Troponin only slightly above normal at 24, 24 and flat. Lactic acid 0.8. Patient does have ketones inhis urine, though notes he has not been eating much with the diarrhea. Blood cultures were sent in the ER. CT head notes no intracranial hemorrhage, mass, or recent infarct. Does note diffuse cerebral volume loss and cerebral white matter changes consistent with chronic small vessel ischemic disease. CT abdomen pelvis completed and most notable is presence of renal and ureteral stones. Not significantly changed nonspecific bilateral perinephric stranding. Mild nonspecific bladder wall thickening. Otherwise no acute findings. Chest xray with no acute findings. Did note possible right upper lobe pulmonary nodule which should have non-emergent outpatient follow up imaging. ER gave patient 2 L IV fluids. Patient was a poor historian and unable to provide information. History obtained from EMR and shahid's , [employer]. Planning to admit patient for further observation and IV fluids. Will obtain brain MRI given recent behavior changes at recommendation of outpatient neur ologist, but no focal neurologic findings. If unable to be completed here, would be reasonable to complete this as outpatient, as well. Planning to discontinue donepezil at this time as diarrhea is most likely a side effect from this new initiation. Patient's notes that he has been having a harder time getting around and neurology was planning to recommend PT. Will consult PT for evaluation here for recommendations. Anticipate that patient should be able to discharge home tomorrow with continued outpatient neurology follow up and consideration of a different cholinesterase inhibitor. Diarrhea Fall with lethargy Dehydration in setting of ongoing diarrhea Deconditioning Would not call this event syncope as heard when patient fell and he was less responsive and lethargic, but without clearly defined loss of consciousness. Fall occurred after patient had been standing upright for 10 minutes on day 5 of ongoing diarrhea and lethargy improved after drinking electrolyte fluids. Favor etiology of dehydration in setting of ongoing diarrhea. - Patient given 2 L IVF in ER. Planning to continue IV fluids with LR at 75 ml/hour. - Low fat diet ordered. Patient's notes that patient will deny hunger and not eat due to his previous stroke / apathy. Food should be ordered for him and she notes that he will eat if food is provided. - Replace electrolytes if needed. - Stopping donepezil as this is most likely etiology of new diarrhea. - Will also check COVID/influenza/RSV panel given current infections and possibility as cause of diarrhea, though less likely than donepezil etiology. - Consulting PT for recommendations. - Anticipate that patient should be able to discharge home tomorrow with continued outpatient neurology follow up and consideration of a different cholinesterase inhibitor. History of CVA Cognitive decline / dementia History of previous stroke including right basal ganglia. Patient with history of residual left facial droop, which was present at admission. Patient is followed by [facility], most recently being seen by Dr. Sunny Hayes. - Patient had been having increased agitation, pacing, and forgetfulness. Seen by Dr. Hayes roughly 2 weeks prior to presentation and started on donepezil 5 mg (x 4 weeks until would increase to 10 mg). - On 12/02, patient and flew to [place] to visit their trauma surgeon daughter and SILVANA. Patient's notes that he was in very good state of health and very lucid (best he'd been in months) on 12/03, but that on 12/04 he started having loose, watery diarrhea 4-5x daily. Diarrhea has been ongoing since that time. - Timeline fits with diarrhea likely being side effect of newly started donepezil. - Discontinue donepezil at this time. Briefly discussed with neurology at time of admission and agree with plan to stop donepezil. - Will obtain brain MRI given recent behavior changes at recommendation of outpatient neurologist, but no focal neurologic findings. If unable to be completed here, would be reasonable to complete this as outpatient, as well. - Patient's notes that he has been having a harder time getting around and neurology was planning to recommend PT. Will consult PT for evaluation here for recommendations. - Anticipate that patient should be able to discharge home tomorrow with continued outpatient neurology follow up and consideration of a different cholinesterase inhibitor. At risk for delirium Recommend delirium prevention measures. - Encourage sleep wake cycles. Blinds open during the day. Lights and TV off at night. - Ensure patient able to see/hear. - Control pain, nausea, or other symptoms. - Avoid constipation, dehydration, malnutrition. - Avoid tethers (IV lines continuous lines as able, catheters, telemetry, restraints) - Avoid anticholinergics, antihistamines, benzodiazepines, opioids as able. - Reorient as first line if delirium develops. CKD 3a Cr is at baseline of 1.3, however, BUN is increased. Supports dehydration in setting of ongoing diarrhea since 12/04. Hydrating as above. Renally dose medications and avoid nephrotoxins. Will follow morning BMP and electrolytes. Nephrolithiasis Right UPJ stone BPH Stones have been known and patient follows with urology. 12/09 CT notes a 5 mm stone within right proximal ureter at [facility]. No significant hydronephrosis. If any worsening renal function, could consider repeating with renal US to evaluate change. Continue AS400 CONSULTANT Flomax. Monitor ins/outs. Bladder scan if decreased output. Encourage PO intake. Hyperlipidemia Continue statin. Alcohol dependence Patient is currently in remission as far as knows and patient is a poor historian given dementia. Continue AS400 CONSULTANT disulfiram. Patient's notes that while patient is no longer driving, he has been known to steal the car and drink if given the chance, so disulfiram continues as a medication. EtOH level on presentation was < 0.01. Abnormal lung imaging findings Prior tobacco use Chest x-ray notes a nodular opacity at right upper lung measuring up to 7mm. Recommended nonemergent follow-up with chest CT. CT abdomen pelvis also notes stable left lower lobe pulmonary nodule measuring 4 mm compared to 08/16/19 CT. Recommend PCP to follow up with chest CT. DVT Prophylaxis: Heparin subcutaneous Code Status: Full Code after discussion with patient, but encourage ongoing discussion with family and PCP. Expected discharge: Suspect that patient will be able to discharge home as soon as tomorrow. Mariposa Cooper MD [facility] Hospitalist Service [facility] Primary Care Physician Nathalie Tate Chief Complaint Diarrhea, fall History is obtained from the patient's , Porcshe, History of Present Illness Jed Alamo is a 68 year old man with PMH significant for prior strokes, cognitive decline / dementia (followed by [facility], most recently being seen by Dr. Sunny Hayes), CKD 3a, hyperlipidemia, BPH, nephrolithiasis, prior tobacco use, and alcohol dependence (currently in remission, remains on disulfiram). Patient presented to the ER for evaluation after a fall while showering 12/08. Patient did not lose consciousness, but was less responsive and lethargic. Patient had been having increased agitation, pacing, and forgetfulness. Seen by Dr. Hayes roughly 2 weeks prior to presentation and started on donepezil 5 mg (x 4 weeks until would increase to 10 mg). On 12/02, patient and flew to [place] to visit their trauma surgeon daughter and SILVANA. Patient's notes that he was in very good state of health and very lucid (best he'd been in months)on 12/03, but that on 12/04 he started having loose, watery diarrhea 4-5x daily. Diarrhea continued and starting on 12/05, he started having worsening confusion at night with wandering when he would getup to use the bathroom. was helping him to shower on 12/08 evening when after standing for 10 minutes, she heard patient fall. He was less responsive and lethargic. Patient's was able to move him to a seated position and she and SILVANA gave patient electrolyte packets in water to drink for over several hours. By 10 PM, patient was able to get up once their daughter was home. On 12/09, they flew home to [place] and patient's took him to the neurology clinic where it was recommendedthat they come to the ER for further evaluations. In the ER, patient was afebrile, HR 68, BP 140/69, RR 20, 100% on room air. BMP with Na 138, K 4.0,Cl 105, CO2 21, BUN 28.8, Cr 1.35, glucose 117. CBC unremarkable with WBC 8.0, Hgb 13.9, Plt 197. Troponin only slightly above normal at 24, 24 and flat. Lactic acid 0.8. Patient does have ketones inhis urine, though notes he has not been eating much with the diarrhea. Blood cultures were sent in the ER. CT head notes no intracranial hemorrhage, mass, or recent infarct. Does note diffuse cerebral volume loss and cerebral white matter changes consistent with chronic small vessel ischemic disease. CT abdomen pelvis completed and most notable is presence of renal and ureteral stones. Not significantly changed nonspecific bilateral perinephric stranding. Mild nonspecific bladder wall thickening. Otherwise no acute findings. Chest xray with no acute findings. Did note possible right upper lobe pulmonary nodule which should have non-emergent outpatient follow up imaging. ER gave patient 2 L IV fluids. Patient was a poor historian and unable to provide information. History obtained from EMR and shahid's , Porsche. Planning to admit patient for further observation and IV fluids. Will obtain brain MRI given recent behavior changes at recommendation of outpatient neur ologist, but no focal neurologic findings. If unable to be completed here, would be reasonable to complete this as outpatient, as well. Planning to discontinue donepezil at this time as diarrhea is most likely a side effect from this new initiation. Patient's notes that he has been having a harder time getting around and neurology was planning to recommend PT. Will consult PT for evaluation here for recommendations. Anticipate that patient should be able to discharge home tomorrow with continued outpatient neurology follow up and consideration of a different cholinesterase inhibitor. Past Medical History I have reviewed this [...] ARTHROTOMY W/OPEN MENISCUS REPAIR 2007 right -TRIA Prior to Admission Medications Prior to Admission Medications Prescriptions Last Dose Informant Patient Reported? Taking? Multiple Vitamins-Iron (TAB-A-CATRACHO/IRON) TABS Self No No Sig: Take 1 capsule by mouth daily Specialty Vitamins Products (VITAMINS FOR HAIR) TABS Yes No Sig: Take 1 tablet by mouth aspirin 81 MG tablet Self Yes No Sig: Take 81 mg by mouth daily atorvastatin (LIPITOR) 40 MG tablet No No Sig: Take 1 tablet (40 mg) by mouth daily cyanocobalamin (VITAMIN B-12) 1000 MCG tablet No No Sig: Take 1 tablet (1,000 mcg) by mouth daily disulfiram (ANTABUSE) 250 MG tablet No No Sig: Take 2 tablets (500 mg) by mouth daily donepezil (ARICEPT) 10 MG tablet Yes Yes Sig: Take 5 mg by mouth at bedtime escitalopram (LEXAPRO) 20 MG tablet Yes No Sig: Take 2 tablets (40 mg) by mouth daily ibuprofen (ADVIL/MOTRIN) 600 MG tablet Yes No Sig: Take 600 mg by mouth every 6 hours as needed tamsulosin (FLOMAX) 0.4 MG capsule Yes No Sig: Take 0.8 mg by mouth daily thiamine (B-1) 100 MG tablet Spouse/Significant Other Yes No Sig: Take 100 mg by mouth daily vitamin D2 (ERGOCALCIFEROL) 70155 units (1250 mcg) capsule No No Sig: Take 1 capsule by mouth once a week Facility-Administered Medications: None Allergies Allergies Allergen Reactions Sulfa Antibiotics Rash Social History Patient lives at home with his , Porsche. Patient has a history of smoking, but not currently. Remote history of alcohol dependence and remains on disulfiram. No illicit drug use. Family History Patient reports that his mother at age 82 in 2015 of a stroke. He reports that his father diedat age 84 in 2015 of bone cancer. I have reviewed this patient's family history [...] hx of Dementia No family hx of [place] Disease No family hx of Parkinsonism No family hx of Autism Spectrum Disorder No family hx of Intellectual Disability (Mental Retardation) No family hx of Mental Illness No family hx of Review of Systems Patient is unfortunately a poor historian in the setting of dementia. Did not recall any events that led to ER visit and notes that he is here because he is always dizzy. ROS otherwise unable to be obtained. Physical Exam Temp: 97 ??F (36.1 ??C) Temp src: Oral BP: (!) 176/79 Pulse: 57 Resp: 18 SpO2: 99 % O2 Device: None(Room air) Vital Signs with Ranges Temp: [97 ??F (36.1 ??C)] 97 ??F (36.1 ??C) Pulse: [56-74] 57 Resp: [11-43] 18 BP: (140-195)/(69-95) 176/79 SpO2: [98 %-100 %] 99 % 0 lbs 0 oz Constitutional: Pleasant older gentleman seen sitting up on stretcher in the emergency department. Patient looking at his cell phone. No family at bedside at time of exam. Patient is alert at time ofexam. He is oriented to self, that he is in the ER in [place], and the year of 2023. However, he can nottell me any events that led to his being here. No acute distress. Appears non-toxic. HEENT: NCAT. Patient with presence of residual left facial droop. Oral mucosa dry. Respiratory: Clear to auscultation bilaterally. No crackles or wheezes. Cardiovascular: Bradycardic at time of exam. Regular rhythm. No murmur. GI: Soft, nontender, nondistended. Hyperactive bowel sounds. Musculoskeletal: No gross deformities. Neurologic: Alert. He is oriented to self, that he is in the ER in [place], and the year of 2023. However, he can not tell me any events that led to his being here. Patient with presence of residual left facial droop. 5/5 strength in all 4 extremities. Did not assess gait. Data Data reviewed today: I personally reviewed reports of the CXR, CT head, and CT abd/pelvis. Also reviewed old records and discussed case briefly with neurology. Recent Labs Lab 12/09/23 1315 12/09/23 1306 WBC 8.0 -- HGB 13.9 -- MCV 90 -- PLT 197 -- NA 138 -- POTASSIUM 4.0 -- CHLORIDE 105 -- CO2 21* -- BUN 28.8* -- CR 1.35* -- ANIONGAP 12 -- COREY 9.4 -- GLC 117* 132* Recent Results (from the past 24 hour(s)) Head CT w/o contrast Narrative CT OF THE HEAD WITHOUT CONTRAST 12/09/2023 2:53 PM COMPARISON: Head CT 01/19/2022. HISTORY: Head injury, syncope. TECHNIQUE: [address] images of the head were acquired without IV contrast material. FINDINGS: There is moderate diffuse cerebral volume loss. There are extensive confluent areas of decreased density in the cerebral white matter bilaterally that are consistent with sequela of chronic small vessel ischemic disease. The ventricles and basal cisterns are within normal limits in configuration given the degree of cerebral volume loss. There is no midline shift. There are no extra-axial fluid collections. No intracranial hemorrhage, mass or recent infarct. The visualized paranasal sinuses are well-aerated. There is no mastoiditis. There are no fractures of the visualized bones. Impression IMPRESSION: Diffuse cerebral volume loss and cerebral white matter changes consistent with chronic small vessel ischemic disease. No evidence for acute intracranial pathology. Radiation dose for this scan was reduced using automated exposure control, adjustment of the mA and/or kV according to patient size, or iterative reconstruction technique ROB NEWTON MD SYSTEM ID: [id number] CT Abdomen Pelvis w/o Contrast Narrative CT ABDOMEN PELVIS W/O CONTRAST 12/09/2023 2:54 [...] spine. Remote superior endplate fracture of T12. Impression IMPRESSION: 1. There is a 5 mm calculus within the right proximal ureter at the ureteropelvic junction. No significant hydronephrosis. 2. Multiple additional nonobstructing bilateral renal calculi. 3. Nonspecific bilateral perinephric stranding does not appear significantly changed. Mild nonspecific bladder wall thickening. These findings can be correlated with urinalysis. LUIS FELIPE HORTON MD SYSTEM ID: [id number] Chest XR, PA & LAT Narrative CHEST TWO VIEWS 12/09/2023 3:44 PM HISTORY: syncope, weakness COMPARISON: 01/19/2022. Impression IMPRESSION: Cardiopericardial silhouette is within normal limits. Aortic arch calcification. No focal airspace consolidation. No pleural effusion. No discernible pneumothorax. No acute displaced fracture. Nodular opacity projecting at the right upper lung measuring up to 7 mm which may represent pulmonary vascular shadows or a pulmonary nodule. Recommend nonemergent follow-up with chest CT. LUIS FELIPE HORTON MD SYSTEM ID: [id number] E MANAGER documented in this encounter Consult Notes * Alessia Chavez RN - 12/10/2023 3:55 PM CSTAssociated Order(s): CARE MANAGEMENT / SOCIAL WORK IP CONSULT Care Management Initial Consult General Information Assessment completed with: Spouse or significant other, Porsche Type of CM/SW Visit: Initial Assessment Primary Care Provider verified and updated as needed: Yes Readmission within the last 30 days: no previous admission in last 30 days Reason for Consult: care coordination/care conference, discharge planning Communication Assessment Patient's communication style: spoken language (Swazi or Bilingual) Hearing Difficulty or Deaf: no Wear Glasses or Blind: yes Cognitive Cognitive/Neuro/Behavioral: .WDL except Level of Consciousness: alert Arousal Level: opens eyes spontaneously Orientation: disoriented to, situation Mood/Behavior: calm, cooperative Best Language: 0 - No aphasia Speech: clear, spontaneous, logical Living Environment: People in home: spouse Current living Arrangements: house Able to return to prior arrangements: yes Family/Social Support: Care provided by: spouse/significant other Provides care for: no one Marital Status: Description of Support System: Supportive, Involved Support Assessment: Adequate family and caregiver support Current Resources: Patient receiving home care services: No Community Resources: Day Care Equipment currently used at home: none Lifestyle & Psychosocial Needs: Social Determinants of Health Food Insecurity: Not on file Depression: Not at risk (08/07/2022) PHQ-2 PHQ-2 Score: 1 Housing Stability: Not on file Tobacco Use: High Risk (06/20/2023) Patient History Smoking Tobacco Use: Every Day Smokeless Tobacco Use: Never Passive Exposure: Current Financial Resource Strain: Not on file Alcohol Use: Not on file Transportation Needs: Not on file Physical Activity: Not on file Interpersonal Safety: Not on file Stress: Not on file Social Connections: Not on file Discharge Date: 12/11/2023 Discharge Disposition: Home, Home Care Discharge Services: None Discharge DME: None Discharge Transportation: family or friend will provide Patient/family educated on Medicare website which has current facility and service quality ratings:yes Education Provided on the Discharge Plan: Yes Patient/Family in Agreement with the Plan: yes Handoff Referral Completed: No Additional Information: CM consulted for discharge planning. Patient was admitted after fall at home and admitted to Obs unit. He has been assessed by Physical Therapy and recommended for HC on discharge. He has baseline confusion. Call placed and spoke to patient's Porsche about patient's observation status and recommendations for home care. Conversation was brief as she is currently at the clinic getting tested for influenza and covid. She is agreeable to home care services and states patient has used home care inthe past after a stroke. She does not remember the agency as that was many years ago. She is open to any agency at this time. She would like RN/Physical Therapy/Occupational Therapy/LABORATORY DIRECTOR services. Explained the referral process to [facility] and that when the agency is finalized it will appear on his discharge paperwork. She is agreeable to this plan. She is anticipating patient will discharge tomorrow and will update staff on her test results. Will cont to follow for discharge plan of care. verifies his PCP is Dr Tate at [facility]. Offered to assist in scheduling follow up. She states she will schedule as needed. She feels Neurology follow up will be most important and patient has an appt already scheduled coming up. [facility] will cont to follow as needed post discharge. Alessia Chavez FLORIST'S DECORATOR CM Inpatient Care Coordination [facility] [phone] E MANAGER documented in this encounter ED Notes * Zach Horne RN - 12/09/2023 7:27 PM CST Bed: ED25 Expected date: Expected time: Means of arrival: Comments: ED 14 E MANAGER * Ronit Wesley RN - 12/09/2023 7:08 PM CST [facility] ED Nurse Handoff Report ED Chief complaint: Altered Mental Status . ED Diagnosis: Final diagnoses: Dehydration Syncope, unspecified syncope type Confusion Elevated troponin Hematuria, unspecified type Allergies: Allergies Allergen Reactions Sulfa Antibiotics Rash Code Status: see admit order for status Activity level - Baseline/Home: independent. Activity Level - Current: standby and assist of 1. Lift room needed: No. Bariatric: No Immigration Specialist Needed: No Isolation: No. Infection: Not Applicable. Respiratory status: Room air Vital Signs (within 30 minutes): Vitals: 12/09/23 1745 12/09/23 1815 12/09/23 1830 12/09/23 1845 BP: (!) 172/79 (!) 182/83 (!) 169/76 (!) 176/79 Pulse: 56 59 60 57 Resp: Temp: TempSrc: SpO2: 99% Cardiac Rhythm: , Pain level: Patient confused: Yes. Patient Falls Risk: nonskid shoes/slippers when out of bed, patient and family education, and activity supervised. Elimination Status: Has voided Patient Report - Initial Complaint: AMS. Focused Assessment: Jed Alamo is a 68 year old male presenting to the emergency department for evaluation of altered mental status. History obtained from patient and largely supplemented by spouse present at bedside. Per report, patient has a longstanding history of previous CVA, CKD, and prior alcohol abuse, currently in remission. notes that he has been dealing with chronic dizziness. He was seen by his neurologist almost 2 weeks previous, where he was started on donepezil. and patient traveled to [place] last Friday to visit family. She noted on Friday, he seemed more lucid. On , he developed diarrhea, with an estimated 4-5 loose watery stools per day. He denies any melena or hematochezia. This has persisted through today. Beginning on Friday, he had additionally developed confusion, particularly at night, when he attempted to get up and use the restroom. The restroom was next to their bedroom, though he was up wandering around the home. Yesterday evening, after he had been standing for about 10 minutes, was hoping to help him shower given hisdiarrhea. She subsequently heard him fall, and upon evaluation, he seemed less responsive. She noted that he did not stop breathing, though appeared more lethargic. This lasted for a few minutes, andultimately he was on ground for a few hours before he was able to be assisted up. They subsequentlyflew home today. They went to the neurology clinic, they were directed here to the ED for further evaluation. Here in the ED, patient denies any complaints or concerns. Specifically, he denies any headache, chest pain, shortness of breath, palpitations. questions if he has appeared more short of breath as of late. Patient has a history of alcohol abuse, though is currently in remission. notes that he is only drank a couple of times in the past few years. She cannot definitively exclude underlying alcohol use at this time. Independent Historian: Spouse/Partner - They report above history Review of External Notes: I reviewed a hospital discharge summary from 02/08 where patient at that time was found down by family. He underwent syncope workup, which was notable for acute kidney injury. Creatinine was 2.51 at that time, then improved to 1.5. Medications: aspirin 81 MG tablet atorvastatin (LIPITOR) 40 MG tablet cyanocobalamin (VITAMIN B-12) 1000 MCG tablet disulfiram (ANTABUSE) 250 MG tablet escitalopram (LEXAPRO) 20 MG tablet ibuprofen (ADVIL/MOTRIN) 600 MG tablet Multiple Vitamins-Iron (TAB-A-CATRACHO/IRON) TABS Specialty Vitamins Products (VITAMINS FOR HAIR) TABS tamsulosin (FLOMAX) 0.4 MG capsule thiamine (B-1) 100 MG tablet vitamin D2 (ERGOCALCIFEROL) 58831 units (1250 mcg) capsule Past Medical History: Past Medical History: Diagnosis Date ALCOHOL ABUSE, IN REMISSION Arthritis Chronic kidney disease Eczema ED (erectile dysfunction) HTN (hypertension), benign 2003 Hyperlipidemia 2005 Prediabetes 2008 Past Surgical History: Past Surgical History Past Surgical History: Procedure Laterality Date HC REMOVE TONSILS/ADENOIDS,<12 Y/O [facility] ARTHROTOMY W/OPEN MENISCUS REPAIR 2008 right -TRIA Physical Exam Patient Vitals for the past 24 hrs: BP Temp Temp src Pulse Resp SpO2 12/09/23 1227 (!) 140/69 97 ??F (36.1 ??C) Oral 68 20 100 % Physical Exam General: Well-nourished Speaking in full sentences Ketotic odor to breath Eyes: Conjunctiva without injection or scleral icterus ENT: Dry mucous membranes Nares patent Pinnae normal Neck: Full ROM No stiffness appreciated Resp: Lungs CTAB No crackles, wheezing or audible rubs Good air movement CV: Normal rate, regular rhythm S1 and S2 present No murmur, gallop or rub GI: BS present Abdomen soft without distention Non-tender to light and deep palpation No guarding or rebound tenderness Skin: Warm, dry, well perfused No rashes or open wounds on exposed skin MSK: Moves all extremities No focal deformities or swelling Neuro: Alert CN III-XII grossly intact 5/5 wharf operator strength 5/5 ankle dorsi/plantarflexion Answers questions appropriately Moves all extremities equally Ambulates independently Psych: Normal affect, normal mood Abnormal Results: Labs Ordered and Resulted from Time of ED Arrival to Time of ED Departure BASIC METABOLIC PANEL - Abnormal Result Value Sodium 138 Potassium 4.0 Chloride 105 Carbon Dioxide (CO2) 21 (*) Anion Gap 12 Urea Nitrogen 28.8 (*) Creatinine 1.35 (*) GFR Estimate 58 (*) Calcium 9.4 Glucose 117 (*) TROPONIN T, HIGH SENSITIVITY - Abnormal Troponin T, High Sensitivity 24 (*) ROUTINE UA WITH MICROSCOPIC REFLEX TO CULTURE - Abnormal Color Urine Yellow Appearance Urine Clear Glucose Urine Negative Bilirubin Urine Negative Ketones Urine 40 (*) Specific [place] Urine 1.026 Blood Urine Large (*) pH Urine 6.0 Protein Albumin Urine 30 (*) Urobilinogen Urine Normal Nitrite Urine Negative Leukocyte Esterase Urine Negative Mucus Urine Present (*) RBC Urine >182 (*) WBC Urine 6 (*) Squamous Epithelials Urine <1 Hyaline Casts Urine 3 (*) KETONE BETA-HYDROXYBUTYRATE QUANTITATIVE, RAPID - Abnormal Ketone (Beta-Hydroxybutyrate) Quantitative 0.60 (*) GLUCOSE BY METER - Abnormal GLUCOSE BY METER POCT 132 (*) TROPONIN T, HIGH SENSITIVITY - Abnormal Troponin T, High Sensitivity 23 (*) CK TOTAL - Normal CK 162 LACTIC ACID WHOLE BLOOD - Normal Lactic Acid 0.8 MAGNESIUM - Normal Magnesium 1.9 ETHYL ALCOHOL LEVEL - Normal Alcohol ethyl <0.01 D DIMER QUANTITATIVE - Normal D-Dimer Quantitative 0.27 CBC WITH PLATELETS AND DIFFERENTIAL WBC Count 8.0 RBC Count 4.50 Hemoglobin 13.9 Hematocrit 40.3 MCV 90 MCH 30.9 MCHC 34.5 RDW 12.9 Platelet Count 197 % Neutrophils 64 % Lymphocytes 25 % Monocytes 8 % Eosinophils 2 % Basophils 1 % Immature Granulocytes 0 NRBCs per 100 WBC 0 Absolute Neutrophils 5.1 Absolute Lymphocytes 2.0 Absolute Monocytes 0.6 Absolute Eosinophils 0.2 Absolute Basophils 0.1 Absolute Immature Granulocytes 0.0 Absolute NRBCs 0.0 BLOOD CULTURE BLOOD CULTURE URINE CULTURE Chest XR, PA & LAT Final Result IMPRESSION: Cardiopericardial silhouette is within normal limits. Aortic arch calcification. No focal airspace consolidation. No pleural effusion. No discernible pneumothorax. No acute displaced fracture. Nodular opacity projecting at the right upper lung measuring up to 7 mm which may represent pulmonary vascular shadows or a pulmonary nodule. Recommend nonemergent follow-up with chest CT. LUIS FELIPE HORTON MD SYSTEM ID: [id number] CT Abdomen Pelvis w/o Contrast Final Result IMPRESSION: 1. There is a 5 mm calculus within the right proximal ureter at the ureteropelvic junction. No significant hydronephrosis. 2. Multiple additional nonobstructing bilateral renal calculi. 3. Nonspecific bilateral perinephric stranding does not appear significantly changed. Mild nonspecific bladder wall thickening. These findings can be correlated with urinalysis. LUIS FELIPE HORTON MD SYSTEM ID: [id number] Head CT w/o contrast Final Result IMPRESSION: Diffuse cerebral volume loss and cerebral white matter changes consistent with chronic small vessel ischemic disease. No evidence for acute intracranial pathology. Radiation dose for this scan was reduced using automated exposure control, adjustment of the mA and/or kV according to patient size, or iterative reconstruction technique ROB NEWTON MD SYSTEM ID: [id number] Treatments provided: see eMAR Family Comments: went home. OBS brochure/video discussed/provided to patient: Yes ED Medications: Medications lactated ringers infusion (has no administration in time range) sodium chloride 0.9% BOLUS 1,000 mL (0 mLs Intravenous Stopped 12/09/23 1657) sodium chloride 0.9% BOLUS 1,000 mL (1,000 mLs Intravenous $New Bag 12/09/23 1747) Drips infusing: Yes For the majority of the shift this patient was Green. Interventions performed were . Sepsis treatment initiated: No Cares/treatment/interventions/medications to be completed following ED care: 1 liter LR, admit orders. ED Nurse Name: Maryse Long RN 7:08 PM RECEIVING UNIT ED HANDOFF REVIEW Above ED Nurse Handoff Report was reviewed: Yes Reviewed by: Ronit Wesley RN on December 09, 2023 at 9:15 PM E MANAGER * Nora Snyder RN - 12/09/2023 12:28 PM CST Pt here for AMS, syncope yesterday, and weakness. Just flew home from [place] today. Had a syncopal episode yesterday and was on the ground for five hours - was unable to lift him up. Pt started on Donepezil 2 weeks ago. Hx of previous strokes w/ cognition issues. Pt is alert and oriented intriage. Denies pain. Does not recall events yesterday. E MANAGER * Akash Ramirez MD - 12/09/2023 12:22 PM CST History Chief Complaint: Altered Mental Status HPI Jed Alamo is a 68 year old male presenting to the emergency department for evaluation of altered mental status. History obtained from patient and largely supplemented by spouse present at bedside. Per report, patient has a longstanding history of previous CVA, CKD, and prior alcohol abuse, currently in remission. notes that he has been dealing with chronic dizziness. He was seen by his neurologist almost 2 weeks previous, where he was started on donepezil. and patient traveledto [place] last Friday to visit family (daughter is Trauma Surgeon there). noted on Friday, he seemed more lucid. On , he developed diarrhea, with an estimated 4-5 loose watery stools per day. He denies any melena or hematochezia. This has persisted through today. Beginning on Friday, he had additionally developed confusion, particularly at night, when he attempted to get up and use the restroom. The restroom was next to their bedroom, though he was up wandering around the home. Yesterday evening, after he had been standing for about 10 minutes, was hoping to help him shower given his diarrhea. She subsequently heard him fall, and upon evaluation, he seemed less responsive. She noted that he did not stop breathing, though appeared more lethargic. This lasted for a few minutes, and ultimately he was on ground for a few hours before he was able to be assisted up. They subsequently flew home today. They went to the neurology clinic, they were directed here to the ED for further evaluation. Here in the ED, patient denies any complaints or concerns. Specifically, he denies any headache, chest pain, shortness of breath, palpitations. questions if he has appeared more short of breath as of late. Patient has a history of alcohol abuse, though is currently inremission. notes that he is only drank a couple of times in the past few years. She cannot definitively exclude underlying alcohol use at this time. Independent Historian: Spouse/Partner - They report above history Review of External Notes: I reviewed a hospital discharge summary from 4//22 where patient at that time was found down by family. He underwent syncope workup, which was notable for acute kidney injury. Creatinine was 2.51 at that time, then improved to 1.5. Medications: donepezil (ARICEPT) 10 MG tablet aspirin 81 MG tablet atorvastatin (LIPITOR) 40 MG tablet cyanocobalamin (VITAMIN B-12) 1000 MCG tablet disulfiram (ANTABUSE) 250 MG tablet escitalopram (LEXAPRO) 20 MG tablet ibuprofen (ADVIL/MOTRIN) 600 MG tablet Multiple Vitamins-Iron (TAB-A-CATRACHO/IRON) TABS Specialty Vitamins Products (VITAMINS FOR HAIR) TABS tamsulosin (FLOMAX) 0.4 MG capsule thiamine (B-1) 100 MG tablet vitamin D2 (ERGOCALCIFEROL) 98926 units (1250 mcg) capsule Past Medical History: Past Medical History: Diagnosis Date ALCOHOL ABUSE, IN REMISSION Arthritis Chronic kidney disease Eczema ED (erectile dysfunction) HTN (hypertension), benign 2003 Hyperlipidemia 2005 Prediabetes 2008 Past Surgical History: Past Surgical History: Procedure Laterality Date HC REMOVE TONSILS/ADENOIDS,<12 Y/O [facility] ARTHROTOMY W/OPEN MENISCUS REPAIR 2008 right -TRIA Physical Exam Patient Vitals for the past 24 hrs: BP Temp Temp src Pulse Resp SpO2 12/09/23 1931 -- 97.3 ??F (36.3 ??C) Oral 59 16 -- 12/09/23 1845 (!) 176/79 -- -- 57 -- -- 12/09/23 1830 (!) 169/76 -- -- 60 -- -- 12/09/23 1815 (!) 182/83 -- -- 59 -- -- 12/09/23 1745 (!) 172/79 -- -- 56 -- 99 % 12/09/23 1734 (!) 195/95 -- -- -- -- 100 % 12/09/23 1719 (!) 181/85 -- -- 74 -- 98 % 12/09/23 1526 (!) 165/79 -- -- 64 18 98 % 12/09/23 1520 (!) 161/77 -- -- 61 12 98 % 12/09/23 1505 (!) 164/77 -- -- 60 13 98 % 12/09/23 1459 -- -- -- 65 11 98 % 12/09/23 1415 (!) 191/88 -- -- 60 16 99 % 12/09/23 1345 (!) 177/86 -- -- 61 19 99 % 12/09/23 1330 (!) 162/83 -- -- 62 19 99 % 12/09/23 1314 (!) 165/80 -- -- 62 18 99 % 12/09/23 1259 (!) 153/80 -- -- 62 (!) 43 100 % 12/09/23 1227 (!) 140/69 97 ??F (36.1 ??C) Oral 68 20 100 % Physical Exam General: Well-nourished Speaking in full sentences Ketotic odor to breath Eyes: Conjunctiva without injection or scleral icterus ENT: Dry mucous membranes Nares patent Pinnae normal Neck: Full ROM No stiffness appreciated Resp: Lungs CTAB No crackles, wheezing or audible rubs Good air movement CV: Normal rate, regular rhythm S1 and S2 present No murmur, gallop or rub GI: BS present Abdomen soft without distention Non-tender to light and deep palpation No guarding or rebound tenderness Skin: Warm, dry, well perfused No rashes or open wounds on exposed skin MSK: Moves all extremities No focal deformities or swelling Neuro: Alert CN III-XII grossly intact 5/5 wharf operator strength 5/5 ankle dorsi/plantarflexion Answers questions appropriately Moves all extremities equally Ambulates independently Psych: Normal affect, normal mood Emergency Department Course ECG ECG results from 12/09/23 EKG 12 lead Value Systolic Blood Pressure Diastolic Blood Pressure Ventricular Rate 59 Atrial Rate 59 OK Interval 166 QRS Duration 88 QT 412 QTc 407 P Redford 56 R AXIS 35 T Redford 50 Interpretation ECG Sinus bradycardia Otherwise normal ECG When compared with ECG of 19-JAN-2022 19:10, QT has shortened Confirmed by - EMERGENCY ROOM, PHYSICIAN ([id number]), health editor DAPHNE ANNE ([id number]) on 12/09/2023 2:06:37 PM EKG 12 lead Value Systolic Blood Pressure Diastolic Blood Pressure Ventricular Rate 65 Atrial Rate 65 OK Interval 164 QRS Duration 88 QT 410 QTc 426 P Redford 58 R AXIS 50 T Redford 50 Interpretation ECG Sinus rhythm Normal ECG When compared with ECG of 09-DEC-2023 13:07, No significant change was found Imaging: CT Head, Abdomen pelvis anc CXR pending Laboratory: Labs Ordered and Resulted from Time of ED Arrival to Time of ED Departure BASIC METABOLIC PANEL - Abnormal Result Value Sodium 138 Potassium 4.0 Chloride 105 Carbon Dioxide (CO2) 21 (*) Anion Gap 12 Urea Nitrogen 28.8 (*) Creatinine 1.35 (*) GFR Estimate 58 (*) Calcium 9.4 Glucose 117 (*) TROPONIN T, HIGH SENSITIVITY - Abnormal Troponin T, High Sensitivity 24 (*) ROUTINE UA WITH MICROSCOPIC REFLEX TO CULTURE - Abnormal Color Urine Yellow Appearance Urine Clear Glucose Urine Negative Bilirubin Urine Negative Ketones Urine 40 (*) Specific [place] Urine 1.026 Blood Urine Large (*) pH Urine 6.0 Protein Albumin Urine 30 (*) Urobilinogen Urine Normal Nitrite Urine Negative Leukocyte Esterase Urine Negative Mucus Urine Present (*) RBC Urine >182 (*) WBC Urine 6 (*) Squamous Epithelials Urine <1 Hyaline Casts Urine 3 (*) KETONE BETA-HYDROXYBUTYRATE QUANTITATIVE, RAPID - Abnormal Ketone (Beta-Hydroxybutyrate) Quantitative 0.60 (*) GLUCOSE BY METER - Abnormal GLUCOSE BY METER POCT 132 (*) TROPONIN T, HIGH SENSITIVITY - Abnormal Troponin T, High Sensitivity 23 (*) CK TOTAL - Normal CK 162 LACTIC ACID WHOLE BLOOD - Normal Lactic Acid 0.8 MAGNESIUM - Normal Magnesium 1.9 ETHYL ALCOHOL LEVEL - Normal Alcohol ethyl <0.01 D DIMER QUANTITATIVE - Normal D-Dimer Quantitative 0.27 CBC WITH PLATELETS AND DIFFERENTIAL WBC Count 8.0 RBC Count 4.50 Hemoglobin 13.9 Hematocrit 40.3 MCV 90 MCH 30.9 MCHC 34.5 RDW 12.9 Platelet Count 197 % Neutrophils 64 % Lymphocytes 25 % Monocytes 8 % Eosinophils 2 % Basophils 1 % Immature Granulocytes 0 NRBCs per 100 WBC 0 Absolute Neutrophils 5.1 Absolute Lymphocytes 2.0 Absolute Monocytes 0.6 Absolute Eosinophils 0.2 Absolute Basophils 0.1 Absolute Immature Granulocytes 0.0 Absolute NRBCs 0.0 INFLUENZA A/B, RSV, & SARS-COV2 PCR BLOOD CULTURE BLOOD CULTURE URINE CULTURE Procedures None Emergency Department Course & Assessments: Interventions: sodium chloride 0.9% BOLUS 1,000 mL (0 mLs Intravenous Stopped 12/09/23 1657) sodium chloride 0.9% BOLUS 1,000 mL (0 mLs Intravenous Stopped 12/09/231914) Assessments: See below Independent Interpretation (X-rays, CTs, rhythm strip): None Consultations/Discussion of Management or Tests: ED Course as of 12/09/232001Dec 09, 2023 140 Patient re-evaluated Social Determinants of Health affecting care: None Disposition: Sign-out to evening team. Anticipate admission Impression & Plan Medical Decision Making: Jed Alamo is a 68 yr old M presenting to the ER for evaluation of altered mental status. VS on presentation reveal mildly elevated BP though otherwise are unremarkable, including absence of fever. Differential diagnosis for patient's presenting symptoms include dehydration, metabolic derangement, alcohol intoxication, CVA, infectious causes, polypharmacy, ACS, pulmonary embolism among others. Clinically, I have high suspicion that dehydration may be contributing to patient's presenting symptoms. He has clinical evidence of dehydration on exam, and significant other acknowledges global volume loss with profuse watery diarrhea over the past 5 days. His laboratory evaluation does reveal elevated BUN:Cr ratio, and both serum and urine ketones are elevated, further suggestive of volume depletion. He was started on IV fluids, and first liter administered under my care. Fortunately, renal function close to baseline with creatinine 1.35, and normal potassium, sodium, and calcium levels.I also considered underlying infectious causes, though based on history and above evaluation, no clear source of infectious process is identified. CBC within normal limits. Lactate also normal at 0.8. Blood cultures x 2 obtained and are presently pending, though at this time, feel systemic antibiotic therapy can be deferred safely. With regards to patient's syncopal episode, orthostatic causes again high in the differential given concurrent GI symptoms. His EKG demonstrates sinus rhythm, nonspecific ST-T wave changes in lead V2/V3, though without significant evolving changes on repeat EKG. His initial troponin returned mildly elevated at 25, though delta 2-hour troponin has declined to 23. He denies any symptoms of chest pain, chest pressure nor shortness of breath and clinically I suspect this most likely represents demand ischemia. I also considered pulmonary embolism as a cause for his syncopal episode, particularly given recent travel, though overall patient is felt to be low risk, and D-dimer returned within normal limits. Feel CT chest can be deferred safely. Given patient's fall, confusion, CT of the head was performed. This is currently pending. His urinalysis also demonstrates microscopic hematuria, which was discussed with spouse. Will further evaluate with CT of the abdomen/pelvis, as spouse notes a prior history of ureteral stone. He again denies any complaints of pain to his abdomen or flank. Cerebral ischemia also on the differential, though patient's last known normal was approximately 5-6 days previous. Will proceed with CT of the head to exclude intracranial hemorrhage, though ultimately patient will likely require further evaluation with MRI to exclude c erebral causes. Patient at this time is outside the window for IV or IA thrombolytic intervention. Initial plan of care and preliminary results were discussed with patient and spouse. Ultimately, hishematuria will require follow- up, which was discussed with patient and spouse. He has otherwise remained in stable condition with a nonfocal neurologic exam during his ED course under my care. He will be signed out to my partner of the evening shift awaiting final CT reports and ultimate admission. Diagnosis: ICD-10-CM 1. Dehydration E86.0 2. Syncope, unspecified syncope type R55 3. Confusion R41.0 4. Elevated troponin R79.89 5. Hematuria, unspecified type R31.9 12/09/2023 Akash Ramirez MD Roach, Brian Donald, MD 12/09/232009 E MANAGER * Trini Mohan MD - 12/09/2023 12:22 PM CST Took over care of the patient at handoff, pending CT and lab results and admission. Spoke with the patient's and daughter. Noted that the patient started donepezil 2 weeks ago. 1week ago he started to have watery diarrhea. Did have a syncopal episode last night. Has been having increasing confusion since the diarrhea started. Patient's drove to the neurologist office today, and they sent her to the emergency department for MRI. On evaluation, the patient does not have any focal neurologic deficits. He states that he does not have any other complaints. Patient has received 1 L normal saline, and has only had a small amount of urine output and it is dark in color. Will order another liter of normal saline. Reviewed the CT and lab results with the patient and her daughter. He does have a 5 mm stone in the right UPJ withoutany hydro-. Patient's daughter reports that he has known about this for quite some time. No signs of infection, I do not think that he needs any emergent intervention for the kidney stone. I do thinkthat he is having dehydration and increased confusion from the diarrhea. This may also be secondaryto the donepezil. No signs of systemic infection. No signs of arrhythmia. Head CT does not show anyintracranial abnormalities. Spoke with Dr. Cooper for admission. Trini Mohan MD 12/09/232134 E MANAGER documented in this encounter Miscellaneous Notes * Plan of Care - Sylvia Hendrix RN - 12/11/2023 2:12 PM CST Goal Outcome Evaluation: Pt came to pick pt up and pt brought down to her in wheelchair. Pt did well eating lunch today, brief changed and belongings sent with him including watch, glasses, phone and charge and clothing. OBSERVATION patient END time: 1330 E MANAGER * Care Plan - Gaviota Davis PT - 12/11/2023 12:55 PM CST Physical Therapy Discharge Summary Reason for therapy discharge: Discharged to home with home therapy. Progress towards therapy goal(s). See goals on Care Plan in [facility] electronic health record for goal details. Goals partially met. Barriers to achieving goals: limited tolerance for therapy. Therapy recommendation(s): Continued therapy is recommended. Rationale/Recommendations: to maximze functional mob I, safety and gary and assess in home environment. E MANAGER * Plan of Care - Sylvia Hendrix RN - 12/11/2023 12:36 PM CST PRIMARY DIAGNOSIS: dehydration/AMS OUTPATIENT/OBSERVATION GOALS TO BE MET BEFORE DISCHARGE 1. Orthostatic performed: N/A 2. Tolerating PO medications: Yes 3. Return to near baseline physical activity: Yes 4. Cleared for discharge by consultants (if involved): Yes Aircraft Engine Mechanic Nurse Safe discharge environment identified: Yes Barriers to discharge: No Pt going to eat lunch and to come and get him at 1400. Pt to be dressed and brief changed. Oriented and flat affect. Up with 1 assist. Incontinent of urine. Pt has glasses, watch, phone and roller checker discharging with him. Denies pain. Entered by: Sylvia Hendrix RN 12/11/2023 12:36 PM Please review provider order for any additional goals. Nurse to notify provider when observation goals have been met and patient is ready for discharge.Goal Outcome Evaluation: E MANAGER * Plan of Kaley - Sylvia Hendrix RN - 12/11/2023 9:46 AM CST PRIMARY DIAGNOSIS: dehydration/AMS OUTPATIENT/OBSERVATION GOALS TO BE MET BEFORE DISCHARGE 1. Orthostatic performed: N/A 2. Tolerating PO medications: Yes 3. Return to near baseline physical activity: Yes 4. Cleared for discharge by consultants (if involved): Yes Aircraft Engine Mechanic Nurse Safe discharge environment identified: Yes Barriers to discharge: Yes PT and make sure gets home PT and RN? Walker for home. Poor appetite. External catheter patent. Oriented, sleeps between cares. Up with 1 assist. Entered by: Sylvia Hendrix RN 12/11/2023 9:46 AM Please review provider order for any additional goals. Nurse to notify provider when observation goals have been met and patient is ready for discharge.Goal Outcome Evaluation: E MANAGER * Plan of Care - Sylvia Hendrix RN - 12/10/2023 12:12 PM CST PRIMARY DIAGNOSIS: dehydration/AMS OUTPATIENT/OBSERVATION GOALS TO BE MET BEFORE DISCHARGE: ADLs back to baseline: No Activity and level of assistance: Up with standby assistance. Pain status: Denies Return to near baseline physical activity: Yes Aircraft Engine Mechanic Nurse Safe discharge environment identified: No Barriers to discharge: Yes PT. Pt up in chair with PT and in halls. Pt has been incontinent of urine today and external cath placed this afternoon so we can strain urine and monitor more closely. Needs encouragement to eat and drink. Flat affect. Oriented to self and place time but slow to respond.Will monitor. Entered by: Sylvia Hendrix RN 12/10/2023 12:13 PM Please review provider order for any additional goals. Nurse to notify provider when observation goals have been met and patient is ready for discharge.Goal Outcome Evaluation: E MANAGER * Plan of Care - Sylvia Hendrix RN - 12/10/2023 7:57 AM CST PRIMARY DIAGNOSIS: dehydration/AMS OUTPATIENT/OBSERVATION GOALS TO BE MET BEFORE DISCHARGE 1. Orthostatic performed: N/A 2. Tolerating PO medications: Yes 3. Return to near baseline physical activity: Yes 4. Cleared for discharge by consultants (if involved): No Aircraft Engine Mechanic Nurse Safe discharge environment identified: Yes Barriers to discharge: Yes. PT consult Entered by: Sylvia Hendrix RN 12/10/2023 7:57 AM Please review provider order for any additional goals. Nurse to notify provider when observation goals have been met and patient is ready for discharge.Goal Outcome Evaluation: E MANAGER * Plan of Care - Ronit Wesley RN - 12/10/2023 4:20 AM CST PRIMARY DIAGNOSIS: Dehydration/AMS OUTPATIENT/OBSERVATION GOALS TO BE MET BEFORE DISCHARGE: ADLs back to baseline: Yes Activity and level of assistance: Up with standby assistance. Pain status: Pain free. Return to near baseline physical activity: Yes Aircraft Engine Mechanic Nurse Safe discharge environment identified: Yes Barriers to discharge: Yes Entered by: Ronit Wesley RN 12/10/2023 4:20 AM Please review provider order for any additional goals. Nurse to notify provider when observation goals have been met and patient is ready for discharge. Vitals are Temp: 98.1 ??F (36.7 ??C) Temp src: Oral BP: (!) 147/62 Pulse: 55 Resp: 16 SpO2: 98 %. Patient is alert and disoriented to situation. Intermittent confusion. Lethargic. They are SBA withGait Belt. Pt is a Low fat diet. Patient has Lactated Ringer's running at 75 mL per hour. Urine cultures pending. No loose stools. On phosphorus, magnesium, and potassium replacement protocols, all to be rechecked in the morning. Plan is for PT consult and possible discharge home today. E MANAGER * Plan of Care - Ronit Wesley RN - 12/10/2023 12:18 AM CST PRIMARY DIAGNOSIS: Dehydration/AMS OUTPATIENT/OBSERVATION GOALS TO BE MET BEFORE DISCHARGE: ADLs back to baseline: Yes Activity and level of assistance: Up with standby assistance. Pain status: Pain free. Return to near baseline physical activity: Yes Aircraft Engine Mechanic Nurse Safe discharge environment identified: Yes Barriers to discharge: Yes Entered by: Ronit Wesley RN 12/10/2023 2:19 AM Please review provider order for any additional goals. Nurse to notify provider when observation goals have been met and patient is ready for discharge. Vitals are Temp: 98.5 ??F (36.9 ??C) Temp src: Oral BP: (!) 161/74 Pulse: 58 Resp: 16 SpO2: 96 %. Patient is alert and disoriented to situation. Intermittent confusion. Lethargic. They are SBA withGait Belt. Pt is a Low fat diet. They are not showing any nonverbal signs of being in pain. Patienthas Lactated Ringer's running at 75 mL per hour. Denies nausea/dizziness/SOB. Blood and urine cultures pending. No loose stools. On phosphorus, magnesium, and potassium replacement protocols, magnesium being replaced and all to be rechecked in the morning. Plan is for PT consult and possible discharge home today. E MANAGER * Pharmacy-Consult Note - Dagmar Rivas [facility] - 12/09/2023 10:37 PM CRANE MANAGER Pharmacy Delirium Consult Medications evaluated as requested per Delirium Consult. No medication recommendations at this time. Pharmacist will continue to follow as new medications are ordered. Dagmar Rivas RPH E MANAGER * Plan of Care - Ronit Wesley RN - 12/09/2023 10:21 PM CST ROOM # 204-1 Living Situation (if not independent, order SW consult): Home w/ spouse Facility name: car salesperson: jimenez Morrell Activity level at baseline: IND Activity level on admit: SBA Who will be transporting you at discharge: [employer]orsche, spouse Patient registered to observation; given Patient Bill of Rights; given the opportunity to ask questions about observation status and their plan of care. Patient has been oriented to the observation room, bathroom and call light is in place. Discussed discharge goals and expectations with patient/family. E MANAGER * Plan of Care - Theodore He RN - 12/09/2023 8:32 PM CST Pt is A & O with intermittent confusion, tolerating low fat diet, LR @ 100 ml/hr infusing, denies pain, Covid 19 R/O, sinus stephan on tele, Obs brochure given. E MANAGER * Pharmacy-Admission Medication History - Ruben Fernandez - 12/09/2023 8:20 PM CRANE MANAGER Health Information Coder Admission Medication History Admission medication history is complete. The information provided in this note is only as accurateas the sources available at the time of the update. Information Source(s): Family member and CareEverywhere/SureScripts via phone Pertinent Information: Patient has already had his Vitamin B-12 injection this month per his who says they typically do it from the 1st-15th of each month. His states that he has not been taking his donepezil at home recently and was told in the hospital that he would be stopping the medication. Changes made to [employer] CONSULTANT medication list: Added: Vitamin B-12 injection Deleted: Donepezil, Vitamin B-12 oral tablet, Specialty vitamin product Changed: Escitalopram directions updated to Take 3 tablets (60mg) by mouth every night Allergies reviewed with patient and updates made in EHR: yes Medication History Completed By: Ruben Fernandez 12/09/2023 8:20 PM Prior to Admission medications Medication Sig Last Dose Taking? Auth Provider [facility] End Date aspirin 81 MG tablet Take 81 mg by mouth daily 12/08/2023 at PM Yes Reported, Patient No atorvastatin (LIPITOR) 40 MG tablet Take 1 tablet (40 mg) by mouth daily 12/08/2023 at PM Yes Nathalie Tate MD Yes cyanocobalamin (CYANOCOBALAMIN) 1000 MCG/ML injection Inject 1 mL into the muscle every 30 days Past Month Yes Unknown, Entered By History disulfiram (ANTABUSE) 250 MG tablet Take 2 tablets (500 mg) by mouth daily 12/08/2023 at PM Yes Nathalie Tate MD Yes escitalopram (LEXAPRO) 20 MG tablet Take 3 tablets (60mg) by mouth every night 12/08/2023 at PM Yes Alton Alonzo MD Yes ibuprofen (ADVIL/MOTRIN) 600 MG tablet Take 600 mg by mouth every 6 hours as needed Unknown at prn Yes Reported, Patient No Multiple Vitamins-Iron (TAB-A-CATRACHO/IRON) TABS Take 1 capsule by mouth daily 12/08/2023 at PM Yes Alton Alonzo MD tamsulosin (FLOMAX) 0.4 MG capsule Take 0.8 mg by mouth daily 12/08/2023 at PM Yes Reported, Patient thiamine (B-1) 100 MG tablet Take 100 mg by mouth daily 12/08/2023 at PM Yes Reported, Patient vitamin D2 (ERGOCALCIFEROL) 23360 units (1250 mcg) capsule Take 1 capsule by mouth once a week 12/06/2023 at PM Yes Alton Alonzo MD E MANAGER Associated attestation - Neymar Aden RPH - 12/09/2023 8:38 PM CRANE MANAGER attested documented in this encounter Plan of Treatment Scheduled Orders Name Type Priority Associated Diagnoses Orde r Schedule EKG 12 lead EKG STAT Enter conditi on for order release in comments for 1 Occurrences starting 12/09/2023 Scheduled Referrals Name Type Priority Associated Diagnoses Order Schedule Primary Care - Care Coordination Referral Referral Routine: Next available opening Unsteady gait when walking Expected: 12/11/2023 (Approximate), Expires: 12/10/2024 Home Care Referral Referral Routine: Next available opening Unsteady gait when walking Ordered: 12/11/[address] Referral Referral Routine Nephrolithiasis Expected: 12/11/2023 (Approximate), Expires: 12/11/2024 documented as of this encounter Goals Goal Patient Goal Type Associated Problems Recent Progress Patient-Stated? Author Transportation General On track( 019 3:46 PM CRANE MANAGER) Yes Nani Sainz LSW Note: Goal [...] Procedure Name Priority Date/Time Associated Diagnosis Comments POTASSIUM Routine 12/11/2023 5:00 AM CRANE MANAGER PHOSPHORUS Routine 12/11/2023 5:00 AM CRANE MANAGER MAGNESIUM Routine 12/11/2023 5:00 AM CRANE MANAGER MAGNESIUM Timed 12/10/2023 1:45 PM CRANE MANAGER CBC WITH PLATELETS AND DIFFERENTIAL STAT 12/10/2023 5:52 AM CRANE MANAGER CBC WITH PLATELETS & DIFFERENTIAL STAT 12/10/2023 5:52 AM CRANE MANAGER PHOSPHORUS Routine 12/10/2023 5:52 AM CRANE MANAGER MAGNESIUM Routine 12/10/2023 5:52 AM CRANE MANAGER HEPATIC FUNCTION PANEL Routine 12/10/2023 5:52 AM CRANE MANAGER BASIC METABOLIC PANEL Routine 12/10/2023 5:52 AM CRANE MANAGER MR BRAIN W/O & W CONTRAST STAT 12/09/2023 9:30 PM CRANE MANAGER INFLUENZA A/B, RSV, & SARS-COV2 PCR STAT 12/09/2023 8:18 PM CRANE MANAGER XR CHEST 2 VIEWS STAT 12/09/2023 3:44 PM CRANE MANAGER TROPONIN T, HIGH SENSITIVITY STAT 12/09/2023 3:[address] ABDOMEN PELVIS W/O CONTRAST STAT 12/09/2023 2:[address] HEAD W/O CONTRAST STAT 12/09/2023 2:53 PM CRANE MANAGER EKG 12-LEAD, TRACING ONLY STAT 12/09/2023 2:19 PM CRANE MANAGER BLOOD CULTURE STAT 12/09/2023 1:52 PM CRANE MANAGER EXTRA TUBE STAT 12/09/2023 1:15 PM CRANE MANAGER EXTRA RED TOP TUBE STAT 12/09/2023 1: 15 PM CRANE MANAGER EXTRA BLUE TOP TUBE STAT 12/09/2023 1 :15 PM CRANE MANAGER CBC WITH PLATELETS AND DIFFERENTIAL STAT 12/09/2023 1:15 PM CRANE MANAGER TROPONIN T, HIGH SENSITIVITY STAT 12/09/2023 1:15 PM CRANE MANAGER CBC WITH PLATELETS & DIFFERENTIAL STAT 12/09/2023 1:15 PM CRANE MANAGER MAGNESIUM Add-On 12/09/2023 1:15 PM CRANE MANAGER LACTIC ACID WHOLE BLOOD STAT 12/09/2023 1:15 PM CRANE MANAGER KETONE BETA-HYDROXYBUTYRATE QUANTITATIVE, RAPID STAT 12/09/2023 1:15 PM CRANE MANAGER D DIMER QUANTITATIVE STAT 12/09/2023 1:15 PM CRANE MANAGER CK TOTAL STAT 12/09/2023 1:15 PM CRANE MANAGER BLOOD CULTURE STAT 12/09/2023 1:15 PM CRANE MANAGER ETHYL ALCOHOL LEVEL STAT 12/09/2023 1 :15 PM CRANE MANAGER BASIC METABOLIC PANEL STAT 12/09/2023 1:15 PM CRANE MANAGER EKG 12-LEAD, TRACING ONLY STAT 12/09/2023 1:07 PM CRANE MANAGER GLUCOSE BY METER STAT 12/09/2023 1:06 PM CRANE MANAGER ROUTINE UA WITH MICROSCOPIC REFLEX TO CULTURE STAT 12/09/2023 12:55 PM CRANE MANAGER URINE CULTURE Add-On 12/09/2023 12:55 PM CRANE MANAGER documented in this encounter Results * Magnesium (12/11/2023 5:00 AM CRANE MANAGER) Magnesium 2.0 1.7 - 2.3 mg/dL 12/11/2023 5:37 AM CRANE MANAGER LABORATORY Blood STRUCTURE OF LEFT HAND / Unknown Venipuncture / Unknown 12/11/2023 5:00 AM CRANE MANAGER 12/11/2023 5:17 AM CRANE MANAGER Sari Vasquez PA-C LAB - BLOOD ORDERA BLES [facility] Lab [address] Lab (1st floor, no room number) [place] [address], [facility] [phone] * Phosphorus (12/11/2023 5:00 AM CRANE MANAGER) Phosphorus 3.7 2.5 - 4.5 mg/dL 12/11/2023 5:37 AM CRANE MANAGER [facility] LABORATORY Blood STRUCTURE OF LEFT HAND / Unknown Venipuncture / Unknown 12/11/2023 5:00 AM CRANE MANAGER 12/11/2023 5:17 AM CRANE MANAGER Mariposa Cooper MD LAB - BLOOD ORDER SANTO [facility] Lab [address] Lab (1st floor, no room number) [place] [address], [facility] [phone] * Potassium (12/11/2023 5:00 AM CRANE MANAGER) Potassium 3.8 3.4 - 5.3 mmol/L 12/11/2023 5:37 AM CRANE MANAGER [facility] LABORATORY Blood STRUCTURE OF LEFT HAND / Unknown Venipuncture / Unknown 12/11/2023 5:00 AM CRANE MANAGER 12/11/2023 5:17 AM CRANE MANAGER Mariposa Cooper MD LAB - BLOOD ORDER SANTO [facility] Lab [address] Lab (1st floor, no room number) [place] [address], [facility] [phone] * (ABNORMAL) Magnesium (12/10/2023 1:45 PM CRANE MANAGER) Magnesium 2.7(H) 1.7 - 2.3 mg/dL 12/10/2023 2:21 PM CRANE MANAGER [facility] LABORAT[facility] Blood STRUCTURE OF RIGHT HAND / Unknown Venipuncture / Unknown 12/10/2023 1:45 PM CRANE MANAGER 12/10/2023 1:52 PM CRANE MANAGER Mariposa Cooper MD LAB - BLOOD ORDER SANTO [facility] LABORATORY [facility] [address] Lab (1st floor, no room number) [place] [address], [facility] [phone] * (ABNORMAL) CBC with platelets and differential (12/10/2023 5:52 AM CRANE MANAGER) WBC Count 6.8 4.0 - 11.0 10e3/uL 12/10/2023 6:23 AM CRANE MANAGER RH LABORATORY RBC Count 3.93(L) 4.40 - 5.90 10e6/uL 12/10/2023 6:23 AM CRANE MANAGER [facility] LAB[facility] Hemoglobin 11.8(L) 13.3 - 17.7 g/dL 12/10/2023 6:23 AM CRANE MANAGER RH LABORATORY Hematocrit 34.9(L) 40.0 - 53.0 % 12/10/2023 6:23 AM CRANE MANAGER RH LABORATORY MCV 89 78 - 100 fL 12/10/2023 6:23 AM CRANE MANAGER RH LABORATORY MCH 30.0 26.5 - 33.0 pg 12/10/2023 6:23 AM CRANE MANAGER [facility] LABORATORY MCHC 33.8 31.5 - 36.5 g/dL 12/10/2023 6:23 AM CRANE MANAGER RH LAB[facility]AT[facility] RDW 12.7 10.0 - 15.0 % 12/10/2023 6:23 AM CRANE MANAGER RH LABORATORY Platelet Count 155 150 - 450 10e3/uL 12/10/2023 6:23 AM CRANE MANAGER [facility]AT[facility] % Neutrophils 58 % 12/10/2023 6:23 AM CRANE MANAGER [facility] % Lymphocytes 29 % 12/10/2023 6:23 AM CRANE MANAGER [facility] % Monocytes 8 % 12/10/2023 6:23 AM CRANE MANAGER [facility] % Eosinophils 4 % 12/10/2023 6:23 AM CRANE MANAGER [facility] % Basophils 1 % 12/10/2023 6:23 AM CRANE MANAGER [facility] % Immature Granulocytes 0 % 12/10/2023 6:23 AM CRANE MANAGER RH LABORATORY NRBCs per 100 WBC 0 <1 /100 024 6:23 AM CRANE MANAGER RH LABORATORY Absolute Neutrophils 3.9 1.6 - 8.3 10e3/uL 12/10/2023 6:23 AM CRANE MANAGER RH LABORATORY Absolute Lymphocytes 2.0 0.8 - 5.3 10e3/uL 12/10/2023 6:23 AM CRANE MANAGER [facility] LABORATORY Absolute Monocytes 0.5 0.0 - 1.3 10e3/uL 12/10/2023 6:23 AM CRANE MANAGER RH LABORATORY Absolute Eosinophils 0.2 0.0 - 0.7 10e3/uL 12/10/2023 6:23 AM CRANE MANAGER [facility] LABORATORY Absolute Basophils 0.1 0.0 - 0.2 10e3/uL 12/10/2023 6:23 AM CRANE MANAGER [facility] LABORAT[facility] Absolute Immature Granulocytes 0.0 <=0.4 10e3/uL 12/10/2023 6:23 AM CRANE MANAGER RH LABORATORY Absolute NRBCs 0.0 10e3/uL 12/10/2023 6:23 AM CRANE MANAGER LABORATORY Blood STRUCTURE OF RIGHT HAND / Unknown Venipuncture / Unknown 12/10/2023 5:52 AM CRANE MANAGER 12/10/2023 6:14 AM CRANE MANAGER Mariposa Cooper MD LAB - BLOOD ORDER SANTO [facility] Lab [address] Lab (1st floor, no room number) [place] [address], [facility] [phone] * (ABNORMAL) Magnesium (12/10/2023 5:52 AM CRANE MANAGER) Magnesium 1.4(L) 1.7 - 2.3 mg/dL 12/10/2023 6:43 AM CRANE MANAGER LABORATORY Blood STRUCTURE OF RIGHT HAND / Unknown Venipuncture / Unknown 12/10/2023 5:52 AM CRANE MANAGER 12/10/2023 6:14 AM CRANE MANAGER Mariposa Cooper MD LAB - BLOOD ORDER SANTO [facility] Lab [address] Lab (1st floor, no room number) [place] [address], [facility] [phone] * Phosphorus (12/10/2023 5:52 AM CRANE MANAGER) Phosphorus 3.3 2.5 - 4.5 mg/dL 12/10/2023 6:43 AM CRANE MANAGER RH LABORATORY Blood STRUCTURE OF RIGHT HAND / Unknown Venipuncture / Unknown 12/10/2023 5:52 AM CRANE MANAGER 12/10/2023 6:14 AM CRANE MANAGER Mariposa Cooper MD LAB - BLOOD ORDER SANTO [facility] LABORATORY [facility] [address] Lab (1st floor, no room number) [place] [address], [facility] [phone] * (ABNORMAL) Hepatic function panel (12/10/2023 5:52 AM CRANE MANAGER) Protein Total 5.5(L) 6.4 - 8.3 g/dL 12/10/2023 6:43 AM CRANE MANAGER RH LABORATORY Albumin 3.4(L) 3.5 - 5.2 g/dL 12/10/2023 6:43 AM CRANE MANAGER RH LABORATORY Bilirubin Total 0.3 <=1.2 mg/dL 12/10/2023 6:43 AM CRANE MANAGER RH LABORATORY Alkaline Phosphatase 114 40 - 150 U/L 12/10/2023 6:43 AM CRANE MANAGER RH LABORATORY Comment:Reference intervals for this test were updated on 09/02/2023 to more accurately reflect our healthy population. There may be differences in the flagging of prior results with similar values performed with this method. Interpretation of those prior results can be made in the context of the updated reference intervals. AST 16 0 - 45 U/L 12/10/2023 6:43 AM CRANE MANAGER [facility] LABORAT[facility] Comment:Reference intervals for this test were updated on 03/31/2023 to more accurately reflect our healthy population. There may be differences in the flagging of prior results with similar values performed with this method. Interpretation of those prior results can be made in the context of the updated reference intervals. ALT 27 0 - 70 U/L 12/10/2023 6:43 AM CRANE MANAGER [facility] LABORAT[facility] Comment:Reference intervals for this test were updated on 03/31/2023 to more accurately reflect our healthy population. There may be differences in the flagging of prior results with similar values performed with this method. Interpretation of those prior results can be made in the context of the updated reference intervals. Bilirubin Direct <0.20 0.00 - 0.30 mg/dL 12/10/2023 6:43 AM [facility]ORAT[facility] Blood STRUCTURE OF RIGHT HAND / Unknown Venipuncture / Unknown 12/10/2023 5:52 AM CRANE MANAGER 12/10/2023 6:14 AM CRANE MANAGER Mariposa Cooper MD LAB - BLOOD ORDER SANTO LABORATORY [facility] [address] Lab (1st floor, no room number) [place] [address], [facility] [phone] * (ABNORMAL) Basic metabolic panel (12/10/2023 5:52 AM CRANE MANAGER) [facility] Sodium 138 135 - 145 mmol/L 12/10/2023 6:43 AM [facility] Comment:Reference intervals for this test were updated on 07/15/2023 to more accurately reflect our healthy population. There may be differences in the flagging of prior results with similar values performed with this method. Interpretation of those prior results can be made in the context of the updated reference intervals. Potassium 3.7 3.4 - 5.3 mmol/L 12/10/2023 6:43 AM [facility] Chloride 108(H) 98 - 107 mmol/L 12/10/2023 6:43 AM [facility] Carbon Dioxide (CO2) 20(L) 22 - 29 mmol/L 12/10/2023 6:43 AM [facility] Anion Gap 10 7 - 15 mmol/L 12/10/2023 6:43 AM [facility] Urea Nitrogen 17.6 8.0 - 23.0 mg/dL 12/10/2023 6:43 AM [facility] Creatinine 1.04 0.67 - 1.17 mg/dL 12/10/2023 6:43 AM [facility] GFR Estimate 79 >60 mL/min/1. 73m2 12/10/2023 6:43 AM [facility] Calcium 8.3(L) 8.8 - 10.2 mg/dL 12/10/2023 6:43 AM CRANE MANAGER LABORATORY Glucose 90 70 - 99 mg/dL 12/10/2023 6:43 AM CRANE MANAGER LABORATORY Blood STRUCTURE OF RIGHT HAND / Unknown Venipuncture / Unknown 12/10/2023 5:52 AM CRANE MANAGER 12/10/2023 6:14 AM CRANE MANAGER Mariposa Cooper MD LAB - BLOOD ORDER SANTO [facility] Lab [address] Lab (1st floor, no room number) [place] [address], [facility] [phone] * MR Brain w/o & w Contrast (12/09/2023 9:30 PM CRANE MANAGER) Anatomical Region Laterality Modality Head, SUBRAD MR NEURO, UMP MR NEURO, RAD MR Magnetic Resonance 12/09/2023 9:30 PM CRANE MANAGER Impressions 12/09/2023 10:17 PM CRANE MANAGER IMPRESSION: 1. ??No acute infarct, mass, mass effect, or hemorrhage. 2. ??Chronic ischemic changes, as described. 3. ??Moderate atrophy. Narrative 12/09/2023 10:17 PM CRANE MANAGER EXAM: MR BRAIN W/O and W CONTRAST LOCATION: [facility] DATE: 12/09/2023 INDICATION: Patient with history of prior strokes, as well as dementia. Recent increase in agitation, started on donepezil, but did not tolerate due to GI symptoms. Rule out new acute process. Suspect progression of dementia. COMPARISON: 07/14/2020 CONTRAST: 7mL gadavist TECHNIQUE: Routine multiplanar multisequence head MRI without [...] pathologic contrast enhancement. Small chronic infarctions left cerebellum, marin, right basal ganglia; similar to prior. SELLA: No abnormality accounting for technique. OSSEOUS STRUCTURES/SOFT TISSUES: Normal marrow signal. The major intracranial vascular flow voids are maintained. ORBITS: No abnormality accounting for technique. SINUSES/MASTOIDS: No paranasal sinus mucosal disease. No middle ear or mastoid effusion. Procedure Note Angel Molina MD - 12/09/2023 EXAM: MR BRAIN W/O and W CONTRAST LOCATION: [facility] DATE: 12/09/2023 INDICATION: Patient with history of prior strokes, as well as dementia.Recent increase in agitation, started on donepezil, but did not toleratedue to GI symptoms. Rule out new acute process. Suspect progression ofdementia. COMPARISON: 07/14/2020 CONTRAST: 7mL gadavist TECHNIQUE: Routine multiplanar multisequence head MRI without and withintravenous contrast. FINDINGS: INTRACRANIAL CONTENTS: No acute or subacute infarct. No mass, acutehemorrhage, or extra-axial fluid collections. Patchy and confluentnonspecific T2/FLAIR hyperintensities within the cerebral white mattermost consistent with moderate chronic microvascular ischemic change. Moderate generalized cerebral atrophy. Nohydrocephalus. Normal position of the cerebellar tonsils. No pathologiccontrast enhancement. Small chronic infarctions left cerebellum, mrain,right basal ganglia; similar to prior. SELLA: No abnormality accounting for technique. OSSEOUS STRUCTURES/SOFT TISSUES: Normal marrow signal. The majorintracranial vascular flow voids are maintained. ORBITS: No abnormality accounting for technique. SINUSES/MASTOIDS: No paranasal sinus mucosal disease. No middle ear ormastoid effusion. IMPRESSION: 1. No acute infarct, mass, mass effect, or hemorrhage. 2. Chronic ischemic changes, as described. 3. Moderate atrophy. Mariposa Cooper MD IM MRI ORDERABLE S * Symptomatic Influenza A/B, RSV, & SARS-CoV2 PCR (COVID-19) Nasopharyngeal (12/09/2023 8:18 PM CRANE MANAGER) Influenza A PCR Negative Negative 12/09/2023 9:14 PM CRANE MANAGER [facility] Influenza B PCR Negative Negative 12/09/2023 9:14 PM CRANE MANAGER [facility] LAB[facility]AT[facility] RSV PCR Negative Negative 12/09/2023 9:14 PM CRANE MANAGER [facility] LAB[facility]AT[facility] SARS CoV2 PCR Negative Negative 12/09/2023 9:14 PM CRANE MANAGER LABORATORY Comment:NEGATIVE: SARS-CoV-2 (COVID-19) RNA not detected, presumed negative. Swab NASOPHARYNGEAL STRUCTURE / Unknown Non-blood Collection / Unknown 12/09/2023 8:18 PM CRANE MANAGER 12/09/2023 8:26 PM CRANE MANAGER Narrative LABORATORY - 12/09/2023 9:14 PM CRANE MANAGER Testing was performed using the Xpert Xpress CoV2/Flu/RSV Assay on the [employer]pert Instrument. This test should be ordered for [...] management. This test was validated by the [facility] [employer]. These laboratories are certified under the Clinical Laboratory Improvement Amendments of 1988 (CLIA-88) as qualified to perform high complexity laboratory testing. Mariposa Cooper MD LAB - MICRO GENER AL ORDERABLES [facility] Lab [address] Lab (1st floor, no room number) [place] [address] [phone] * Chest XR, PA & LAT (12/09/2023 3:44 PM CRANE MANAGER) Anatomical Region Laterality Modality Chest Digital Radiogra phy Impressions 12/09/2023 3:52 PM CRANE MANAGER IMPRESSION: Cardiopericardial silhouette is within normal limits. Aortic arch calcification. No focal airspace consolidation. No pleural effusion. No discernible pneumothorax. No acute displaced fracture. Nodular opacity projecting at the right upper lung measuring up to 7 mm which may represent pulmonary vascular shadows or a pulmonary nodule. Recommend nonemergent follow-up with chest CT. LUIS FELIPE HORTON MD SYSTEM ID: ??[id number] Narrative 12/09/2023 3:52 PM CRANE MANAGER CHEST TWO VIEWS 12/09/2023 3:44 PM HISTORY: [...] CT. LUIS FELIPE HORTON MD SYSTEM ID: [id number] Akash Ramirez MD IMG DIAGNOSTIC PASCUAL GING ORDERABLES * (ABNORMAL) Troponin T, High Sensitivity (now) (12/09/2023 3:20 PM CRANE MANAGER) Troponin T, High Sensitivity 23(H) <=22 ng/L 12/09/2023 3:49 PM CRANE MANAGER [facility] Comment: Either a High Sensitivity [...] SPECIMEN / Unknown Venipuncture / Unknown 12/09/2023 3:20 PM CRANE MANAGER 12/09/2023 3:25 PM CRANE MANAGER Akash Ramirez MD LAB - BLOOD ORDERA BLES [facility] Lab [address] Lab (1st floor, no room number) [place] [address], [facility] [phone] * CT Abdomen Pelvis w/o Contrast (12/09/2023 2:54 PM CRANE MANAGER) Anatomical Region Laterality Modality Abdomen/Pelvis, SUBRAD CT CAROLANN DY, UMP CT ABDOMEN PELVIS, RAD CT Computed Tomography Impressions 12/09/2023 3:05 PM CRANE MANAGER IMPRESSION: 1. ??There is a 5 mm calculus within the right proximal ureter at the ureteropelvic junction. No significant hydronephrosis. 2. ??Multiple additional nonobstructing bilateral renal calculi. 3. ??Nonspecific bilateral perinephric stranding does not appear significantly changed. Mild nonspecific bladder wall thickening. These findings can be correlated with urinalysis. LUIS FELIPE HORTON MD SYSTEM ID: ??[id number] Narrative 12/09/2023 3:[address] ABDOMEN PELVIS W/O CONTRAST 12/09/2023 2:54 [...] urinalysis. LUIS FELIPE HORTON MD SYSTEM ID: [id number] Akash Ramirez MD [facility] [place] [place] CT ORDERABLES * Head CT w/o contrast (12/09/2023 2:53 PM CRANE MANAGER) Anatomical Region Laterality Modality Head, SUBRAD CT NEURO, SUBRA D CT NEURO, UMP CT NEURO, RAD CT Computed Tomography Impressions 12/09/2023 3:37 PM CRANE MANAGER IMPRESSION: Diffuse cerebral volume loss and cerebral white matter changes consistent with chronic small vessel ischemic disease. No evidence for acute intracranial pathology. Radiation dose for this scan was reduced using automated exposure control, adjustment of the mA and/or kV according to patient size, or iterative reconstruction technique ROB NEWTON MD SYSTEM ID: ??[id number] Narrative 12/09/2023 3:[address] OF THE HEAD WITHOUT CONTRAST 12/09/2023 2:53 PM COMPARISON: Head CT 01/19/2022. HISTORY: Head injury, syncope. TECHNIQUE: [address] images of the head were acquired without IV contrast material. FINDINGS: There is moderate diffuse cerebral volume loss. There are extensive confluent areas of decreased density in the cerebral white matter bilaterally that are consistent with sequela of chronic small vessel ischemic disease. The ventricles and basal cisterns are within normal limits in configuration given the degree of cerebral volume loss. There is no midline shift. There are no extra-axial fluid collections. No intracranial hemorrhage, mass or recent infarct. The visualized paranasal sinuses are well-aerated. There is no mastoiditis. There are no fractures of the visualized bones. Procedure Note Rob Newton MD - 12/09/2023 CT OF THE HEAD WITHOUT CONTRAST 12/09/2023 2:53 PM COMPARISON: Head CT 01/19/2022. HISTORY: Head injury, syncope. TECHNIQUE: [address] images of the head were acquired without IV contrast material. FINDINGS: There is moderate diffuse cerebral volume loss. There are extensive confluent areas of decreased density in the cerebral white matter bilaterally that are consistent with sequela of chronic small vessel ischemic disease. The ventricles and basal cisterns are within normal limits in configuration given the degree of cerebral volume loss. There is no midline shift. There are no extra-axial fluid collections. No intracranial hemorrhage, mass or recent infarct. The visualized paranasal sinuses are well-aerated. There is no mastoiditis. There are no fractures of the visualized bones. IMPRESSION: Diffuse cerebral volume loss and cerebral white matter changes consistent with chronic small vessel ischemic disease. No evidence for acute intracranial pathology. Radiation dose for this scan was reduced using automated exposure control, adjustment of the mA and/or kV according to patient size, or iterative reconstruction technique ROB NEWTON MD SYSTEM ID: [id number] Akash Ramirez MD IMG CT ORDERABLES * EKG 12 lead (12/09/2023 2:19 PM CRANE MANAGER) Systolic Blood Pressure mmHg RADIOLOGY RESULTS Diastolic Blood Pressure mmHg RADIOLOGY RESULTS Ventricular Rate 65 BPM RAD IOLOGY RESULTS Atrial Rate 65 BPM RADIOLOG Y RESULTS OK Interval 164 ms RADIOLOG Y RESULTS QRS Duration 88 ms RADIOLO GY RESULTS QT 410 ms RADIOLOGY RESULTS QTc 426 ms RADIOLOGY RESULTS P [place] 58 degrees RADIOLOGY RESULTS R AXIS 50 degrees RADIOLOGY RESULTS T [place] 50 degrees RADIOLOGY RESULTS Interpretation ECG Sinus rhythm Normal ECG When compared with ECG of 09-DEC-2023 13:07, No significant change was found Unconfirmed report - interpretation of this ECG is computer generated - see medical record for final interpretation Confirmed by - EMERGENCY ROOM, PHYSICIAN ([id number]), health editor SAMUEL TESFAYE ([id number]) on 12/10/2023 6:48:21 AM RADIOLOGY RESULTS 12/09/2023 2:19 PM CRANE MANAGER 12/10/2023 6:48 AM CRANE MANAGER Akash Ramirez MD ECG ORDERABLES RADIOLOGY RESULTS * Blood Culture Hand, Right (12/09/2023 1:52 PM CRANE MANAGER) Culture No Growth 12/14/2023 3:32 PM CRANE MANAGER [facility] Blood STRUCTURE OF RIGHT HAND / Unknown Venipuncture / Unknown 12/09/2023 1:52 PM CRANE MANAGER 12/09/2023 1:56 PM CRANE MANAGER Narrative [facility] - 12/14/2023 3:32 PM CRANE MANAGER Only an Aerobic Blood Culture Bottle was collected, interpret results with caution. Akash Ramirez MD LAB - MICRO GENERA L ORDERABLES [facility] Inf. Diseases Diag. Lab [address] [place] [address], [place] [phone] * D dimer quantitative (12/09/2023 1:15 PM CRANE MANAGER) D-Dimer Quantitative 0.27 0.00 - 0.50 ug/mL FEU 12/09/2023 2:25 PM CRANE MANAGER [facility] Blood BLOOD SPECIMEN / Unknown Venipuncture / Unknown 12/09/2023 1:15 PM CRANE MANAGER 12/09/2023 1:22 PM CRANE MANAGER Narrative [facility] - 12/09/2023 2:25 PM CRANE MANAGER This D-dimer assay is intended for use [...] ug/mL = 0.76 ug/mL (760 ug/L). M Raheelhichristiano et al. Age adjusted D-dimer cut-off levels to rule out pulmonary embolism: The ADJUST-PE Study. LAURA 2014;311:2936-1357.; CEDRICK Rosas et al. Diagnostic accuracy of conventional or age adjusted D-dimer cutoff values in older patients with suspected venous thromboembolism. Systemic review and meta-analysis. BMJ 2013:346:f2492. Akash Ramirez MD LAB - BLOOD ORDERA BLES Performing Organization Address City/[facility]/ZIP Co de Phone Number [facility] Lab [address] Lab (1st floor, no room number) [place] [address], [facility] [phone] * Alcohol level blood (12/09/2023 1:15 PM CRANE MANAGER) Alcohol ethyl <0.01 <=0.01 g/dL 12/09/2023 1:56 PM CRANE MANAGER [facility] Blood BLOOD SPECIMEN / Unknown Venipuncture / Unknown 12/09/2023 1:15 PM CRANE MANAGER 12/09/2023 1:23 PM CRANE MANAGER Akash Ramirez MD LAB - BLOOD ORDERA BLES Performing Organization Address City/[facility]/ZIP Co de Phone Number [facility] [address] Lab (1st floor, no room number) [place] [address], [facility] [phone] * Magnesium (12/09/2023 1:15 PM CRANE MANAGER) Magnesium 1.9 1.7 - 2.3 mg/dL 12/09/2023 1:56 PM CRANE MANAGER [facility] Blood BLOOD SPECIMEN / Unknown Venipuncture / Unknown 12/09/2023 1:15 PM CRANE MANAGER 12/09/2023 1:23 PM CRANE MANAGER Akash Ramirez MD LAB - BLOOD ORDERA BLES Performing Organization Address City/[facility]/ZIP Co de Phone Number [facility] Lab [address] Lab (1st floor, no room number) [place] [address], [facility] [facility] [phone] * Extra Red Top Tube (12/09/2023 1:15 PM CRANE MANAGER) Hold Specimen JIC 12/09/2023 2:32 PM CRANE MANAGER [facility] Blood BLOOD SPECIMEN / Unknown Venipuncture / Unknown 12/09/2023 1:15 PM CRANE MANAGER 12/09/2023 1:22 PM CRANE MANAGER Akash Ramirez MD LAB - BLOOD ORDERA BLES LABORATORY [facility] [address] Lab (1st floor, no room number) [place] [address], [facility] [phone] * Extra Blue Top Tube (12/09/2023 1:15 PM CRANE MANAGER) Hold Specimen JIC 12/09/2023 2:32 PM CRANE MANAGER [facility] Blood BLOOD SPECIMEN / Unknown Venipuncture / Unknown 12/09/2023 1:15 PM CRANE MANAGER 12/09/2023 1:22 PM CRANE MANAGER Akash Ramirez MD LAB - BLOOD ORDERA BLES Performing Organization Address [facility]/ZIP Co de Phone Number LABORATORY [facility] [address] Lab (1st floor, no room number) [place] [address], [facility] [phone] * CBC with platelets and differential (12/09/2023 1:15 PM CRANE MANAGER) WBC Count 8.0 4.0 - 11.0 10e3/uL 12/09/2023 1:26 PM CRANE MANAGER [facility] RBC Count 4.50 4.40 - 5.90 10e6/uL 12/09/2023 1:26 PM CRANE MANAGER [facility] Hemoglobin 13.9 13.3 - 17.7 g/dL 12/09/2023 1:26 PM CRANE MANAGER [facility] Hematocrit 40.3 40.0 - 53.0 % 12/09/2023 1:26 PM CRANE MANAGER [facility] MCV 90 78 - 100 fL 12/09/2023 1:26 PM CRANE MANAGER [facility] MCH 30.9 26.5 - 33.0 pg 12/09/2023 1:26 PM CRANE MANAGER [facility] MCHC 34.5 31.5 - 36.5 g/dL 12/09/2023 1:26 PM CRANE MANAGER [facility] RDW 12.9 10.0 - 15.0 % 12/09/2023 1:26 PM CRANE MANAGER [facility] Platelet Count 197 150 - 450 10e3/uL 12/09/2023 1:26 PM CRANE MANAGER [facility] % Neutrophils 64 % 12/09/2023 1:26 PM CRANE MANAGER [facility] % Lymphocytes 25 % 12/09/2023 1:26 PM CRANE MANAGER [facility] % Monocytes 8 % 12/09/2023 1:26 PM CRANE MANAGER [facility] % Eosinophils 2 % 12/09/2023 1:26 PM CRANE MANAGER [facility] % Basophils 1 % 12/09/2023 1:26 PM CRANE MANAGER [facility] % Immature Granulocytes 0 % 12/09/2023 1:26 PM CRANE MANAGER [facility] NRBCs per 100 WBC 0 <1 /100 024 1:26 PM CRANE MANAGER [facility] Absolute Neutrophils 5.1 1.6 - 8.3 10e3/uL 12/09/2023 1:26 PM CRANE MANAGER [facility] Absolute Lymphocytes 2.0 0.8 - 5.3 10e3/uL 12/09/2023 1:26 PM CRANE MANAGER [facility] Absolute Monocytes 0.6 0.0 - 1.3 10e3/uL 12/09/2023 1:26 PM CRANE MANAGER [facility] Absolute Eosinophils 0.2 0.0 - 0.7 10e3/uL 12/09/2023 1:26 PM CRANE MANAGER [facility] Absolute Basophils 0.1 0.0 - 0.2 10e3/uL 12/09/2023 1:26 PM CRANE MANAGER [facility] Absolute Immature Granulocytes 0.0 <=0.4 10e3/uL 12/09/2023 1:26 PM CRANE MANAGER [facility] Absolute NRBCs 0.0 10e3/uL 12/09/2023 1:26 PM CRANE MANAGER [facility] Blood BLOOD SPECIMEN / Unknown Venipuncture / Unknown 12/09/2023 1:15 PM CRANE MANAGER 12/09/2023 1:22 PM CRANE MANAGER Akash Ramirez MD LAB - BLOOD ORDERA BLES [facility] [address] Lab (1st floor, no room number) [place] [address], [facility] [phone] * Blood Culture Peripheral Blood (12/09/2023 1:15 PM CRANE MANAGER) Culture No Growth 12/14/2023 3:32 PM CRANE MANAGER [facility] Blood BLOOD SPECIMEN / Unknown Venipuncture / Unknown 12/09/2023 1:15 PM CRANE MANAGER 12/09/2023 1:22 PM CRANE MANAGER Akash Ramirez MD LAB - MICRO GENERA L ORDERABLES [facility] Inf. Diseases Diag. Lab [address] [facility] [address] [place] [address], [facility] [phone] * Lactic acid whole blood (12/09/2023 1:15 PM CRANE MANAGER) Lactic Acid 0.8 0.7 - 2.0 mmol/L 12/09/2023 1:26 PM CRANE MANAGER [facility] Blood BLOOD SPECIMEN / Unknown Venipuncture / Unknown 12/09/2023 1:15 PM CRANE MANAGER 12/09/2023 1:22 PM CRANE MANAGER Akash Ramirez MD LAB - BLOOD ORDERA BLES [facility] [address] Lab (1st floor, no room number) [place] [address], [facility] [phone] * (ABNORMAL) Ketone Beta-Hydroxybutyrate Quantitative (12/09/2023 1:15 PM CRANE MANAGER) Ketone (Beta-Hydroxybuty rate) Quantitative 0.60(H) <=0.30 mmol/L 12/09/2023 1:56 PM CRANE MANAGER [facility] LAB[facility]AT[facility] Blood BLOOD SPECIMEN / Unknown Venipuncture / Unknown 12/09/2023 1:15 PM CRANE MANAGER 12/09/2023 1:23 PM CRANE MANAGER Akash Ramirez MD LAB - BLOOD ORDERA BLES [facility] [address] Lab (1st floor, no room number) [place] [address], [facility] [phone] * CK total (12/09/2023 1:15 PM CRANE MANAGER) CK 162 39 - 308 U/L 12/09/2023 1:56 PM CRANE MANAGER LABORATORY Blood BLOOD SPECIMEN / Unknown Venipuncture / Unknown 12/09/2023 1:15 PM CRANE MANAGER 12/09/2023 1:23 PM CRANE MANAGER Akash Ramirez MD LAB - BLOOD ORDERA BLES LABORATORY [facility] [address] Lab (1st floor, no room number) [place] [address] [phone] * (ABNORMAL) Troponin T, High Sensitivity (12/09/2023 1:15 PM CRANE MANAGER) Pathologist [facility] Troponin T, High Sensitivity 24(H) <=22 ng/L 12/09/2023 1:56 PM CRANE MANAGER LABORATORY Comment: Either a High Sensitivity Troponin [...] Unknown Venipuncture / Unknown 12/09/2023 1:15 PM CRANE MANAGER 12/09/2023 1:23 PM CRANE MANAGER Akash Ramirez MD LAB - BLOOD ORDERA BLES Performing Organization Address City/[facility]/ZIP Co de Phone Number LABORATORY [facility] [address] Lab (1st floor, no room number) [place] [address], [facility] [phone] * (ABNORMAL) Basic metabolic panel (12/09/2023 1:15 PM CRANE MANAGER) [facility] Sodium 138 135 - 145 mmol/L 12/09/2023 1:56 PM CRANE MANAGER LABORATORY Comment:Reference intervals for this test were updated on 07/15/2023 to more accurately reflect our healthy population. There may be differences in the flagging of prior results with similar values performed with this method. Interpretation of those prior results can be made in the context of the updated reference intervals. Potassium 4.0 3.4 - 5.3 mmol/L 12/09/2023 1:56 PM CRANE MANAGER LABORATORY Chloride 105 98 - 107 mmol/L 12/09/2023 1:56 PM CRANE MANAGER LABORATORY Carbon Dioxide (CO2) 21(L) 22 - 29 mmol/L 12/09/2023 1:56 PM CRANE MANAGER LABORATORY Anion Gap 12 7 - 15 mmol/L 12/09/2023 1:56 PM CRANE MANAGER LABORATORY Urea Nitrogen 28.8(H) 8.0 - 23.0 mg/dL 12/09/2023 1:56 PM CRANE MANAGER LABORATORY Creatinine 1.35(H) 0.67 - 1.17 mg/dL 12/09/2023 1:56 PM CRANE MANAGER LABORATORY GFR Estimate 58(L) >60 mL/min/1. 73m2 12/09/2023 1:56 PM CRANE MANAGER LABORATORY Calcium 9.4 8.8 - 10.2 mg/dL 12/09/2023 1:56 PM CRANE MANAGER LABORATORY Glucose 117(H) 70 - 99 mg/dL 12/09/2023 1:56 PM CRANE MANAGER LABORATORY Blood BLOOD SPECIMEN / Unknown Venipuncture / Unknown 12/09/2023 1:15 PM CRANE MANAGER 12/09/2023 1:23 PM CRANE MANAGER Akash Ramirez MD LAB - BLOOD ORDERA BLES LABORATORY [facility] [address] Lab (1st floor, no room number) [place] [address], [facility] [phone] * EKG 12 lead (12/09/2023 1:07 PM CRANE MANAGER) Systolic Blood Pressure mmHg RADIOLOGY RESULTS Diastolic Blood Pressure mmHg RADIOLOGY RESULTS Ventricular Rate 59 BPM RAD IOLOGY RESULTS Atrial Rate 59 BPM RADIOLOG Y RESULTS OK Interval 166 ms RADIOLOG Y RESULTS QRS Duration 88 ms RADIOLO GY RESULTS QT 412 ms RADIOLOGY RESULTS QTc 407 ms RADIOLOGY RESULTS P [place] 56 degrees RADIOLOGY RESULTS R AXIS 35 degrees RADIOLOGY RESULTS T [place] 50 degrees RADIOLOGY RESULTS Interpretation ECG Sinus bradycardia Otherwise normal ECG When compared with ECG of 19-JAN-2022 19:10, QT has shortened Confirmed by - EMERGENCY ROOM, PHYSICIAN ([id number]), health editor DAPHNE ANNE ([id number]) on 12/09/2023 2:06:37 PM RADIOLOGY RESULTS 12/09/2023 1:07 PM CRANE MANAGER 12/09/2023 2:06 PM CRANE MANAGER Akash Ramirez MD ECG ORDERABLES RADIOLOGY RESULTS * (ABNORMAL) Glucose by meter (12/09/2023 1:06 PM CRANE MANAGER) GLUCOSE BY METER POCT 132(H) 70 - 99 mg/dL 12/09/2023 1:12 PM CRANE MANAGER LABORATORY POC Blood, venous BLOOD SPECIMEN / Unknown 12/09/2023 1:06 PM CRANE MANAGER 12/09/2023 1:12 PM CRANE MANAGER Akash Ramirez MD LAB - AKER POCT LABORATORY POC [facility] [address] Lab (1st floor, no room number) [place] [address], [facility] [phone] * Urine Culture (12/09/2023 12:55 PM CRANE MANAGER) Culture <10,000 CFU/mL Urogenital trista 12/10/2023 11:19 AM CRANE MANAGER [facility] Urine MID-STREAM URINE SPECIMEN / Unknown Non-blood Collection / Unknown 12/09/2023 12:55 PM CRANE MANAGER 12/09/2023 1:22 PM CRANE MANAGER Akash Ramirez MD LAB - MICRO GENERA L ORDERABLES [facility] Inf. Diseases Diag. Lab [address] [facility] [address] [place] [address], [facility] [phone] * (ABNORMAL) UA with Microscopic reflex to Culture (12/09/2023 12:55 PM CRANE MANAGER) Color Urine Yellow Colorless, Straw, Light Yellow, Yellow 12/09/2023 1:32 PM CRANE MANAGER [facility] Appearance Urine Clear Clear 12/09/19 24 1:32 PM CRANE MANAGER [facility] LAB[facility] Glucose Urine Negative Negative mg/dL 12/09/2023 1:32 PM CRANE MANAGER [facility] LAB[facility] Bilirubin Urine Negative Negative 1:32 PM CRANE MANAGER [facility] LAB[facility] Ketones Urine 40(A) Negative mg/dL 12/09/2023 1:32 PM CRANE MANAGER [facility] LAB[facility] Specific [place] Urine 1.026 1.003 - 1.035 12/09/2023 1:32 PM CRANE MANAGER [facility] Blood Urine Large(A) Negative 12/09/2023 1:32 PM CRANE MANAGER [facility] pH Urine 6.0 5.0 - 7.0 12/09/2023 1:32 PM CRANE MANAGER [facility] Protein Albumin Urine 30(A) Negative mg/dL 12/09/2023 1:32 PM CRANE MANAGER [facility] LAB[facility] Urobilinogen Urine Normal Normal, 2.0 mg/dL 12/09/2023 1:32 PM CRANE MANAGER [facility] LAB[facility] Nitrite Urine Negative Negative 12/09/2023 1:32 PM CRANE MANAGER [facility] Leukocyte Esterase Urine Negative Negative 12/09/2023 1:32 PM CRANE MANAGER [facility] Mucus Urine Present(A) None Seen /LPF 12/09/2023 1:32 PM CRANE MANAGER [facility] RBC Urine >182(H) <=2 /HPF 12/09/2023 1:32 PM CRANE MANAGER [facility] LAB[facility] WBC Urine 6(H) <=5 /HPF 12/09/2023 1:32 PM CRANE MANAGER [facility] LAB[facility] Squamous Epithelials Urine <1 <=1 /HPF 12/09/2023 1:32 PM CRANE MANAGER [facility] LAB[facility]AT[facility] Hyaline Casts Urine 3(H) <=2 /LPF 12/09/2023 1:32 PM CRANE MANAGER LABORATORY Urine MID-STREAM URINE SPECIMEN / Unknown Non-blood Collection / Unknown 12/09/2023 12:55 PM CRANE MANAGER 12/09/2023 1:22 PM CRANE MANAGER Narrative LABORATORY - 12/09/2023 1:32 PM CRANE MANAGER Urine Culture not indicated Akash Ramirez MD LAB - URINE ORDERA [facility] Organization Address City/State/ZIP Co de Phone Number LABORATORY [facility] [address] [facility] Lab (1st floor, no room number) [place] [address], [facility] [phone] documented in this encounter Visit Diagnoses Diagnosis Hematuria, unspecified type- Primary Dehydration Syncope, unspecified syncope type Confusion Unspecified psychosis Elevated troponin Other abnormal blood chemistry Hematuria, unspecified type Unsteady gait when walking Dementia (H) Dementia, unspecified, without behavioral disturbance Nephrolithiasis Calculus of kidney Dehydration Confusion Unspecified psychosis Elevated troponin Other abnormal blood chemistry Syncope, unspecified syncope type documented in this encounter Admitting Diagnoses Diagnosis Hematuria, unspecified type documented in this encounter Administered Medications Inactive Administered Medications - up to 3 most recent administrations Medication Order MAR Action Action Date Dose Rate Site acetaminophen (TYLENOL) Suppository 650 mg 650 mg, Rectal, EVERY 4 HOURS PRN, mild pain, other, and adjunct with moderate or severe pain or per patient request, Starting on Fri12/09/23 at 1956, Alternate with ibuprofen if ordered. Maximum acetaminophen dose from all sources = 75 mg/kg/day not to exceed 4 grams/day. acetaminophen (TYLENOL) tablet 650 mg 650 mg, Oral, EVERY 4 HOURS PRN, mild pain, other, and adjunct with moderate or severe pain or per patient request, Starting on Fri12/09/23 at 1956, Alternate with ibuprofen if ordered. Maximum acetaminophen dose from all sources = 75 mg/kg/day not to exceed 4 grams/day. aspirin EC tablet 81 mg 81 mg, Oral, DAILY, First dose on Fri12/10/23 at 0800, DO NOT CRUSH. $Given 12/11/2023 9:05 AM CRANE MANAGER 81 mg $Given 12/10/2023 8:56 AM CRANE MANAGER 81 mg atorvastatin (LIPITOR) tablet 40 mg 40 mg, Oral, EVERY EVENING, First dose on Fri12/09/23 at 2000 $Given 12/10/2023 7:36 PM CRANE MANAGER 40 mg $Given 12/09/2023 10:13 PM CRANE MANAGER 40 mg disulfiram (ANTABUSE) tablet 500 mg 500 mg, Oral, DAILY, First dose on Fri12/10/23 at 0800 $Given 12/11/2023 9:05 AM CRANE MANAGER 500 mg $Given 12/10/2023 8:56 AM CRANE MANAGER 500 mg escitalopram (LEXAPRO) tablet 60 mg 60 mg, Oral, AT BEDTIME, First dose (after last modification) on Fri12/09/23 at 2200 $Given 12/10/2023 9:20 PM CRANE MANAGER 60 mg $Given 12/09/2023 10:13 PM CRANE MANAGER 60 mg gadobutrol (GADAVIST) injection 7 mL 7 mL, Intravenous, ONCE, On Fri12/09/23 at 2115, For 1 dose, Supplied by, and administered by MRI. $Given 12/09/2023 9:21 PM CRANE MANAGER 7 mLs heparin ANTICOAGULANT injection 5,000 Units 5,000 Units, Subcutaneous, EVERY 8 HOURS, First dose on Fri12/09/23 at 2000, HOLD heparin IF platelet count falls below 50% baseline or less than 100,000 / ??L and notify provider. Use this product If CrCl less than 30 mL/min. High concentration heparin. Not for line flush or cath care. $Given 12/11/2023 6:09 AM CRANE MANAGER 5,000 Units $Given 12/10/2023 9:20 PM CRANE MANAGER 5,000 Units $Given 12/10/2023 2:30 PM CRANE MANAGER 5,000 Units lactated ringers infusion at 75 mL/hr, Intravenous, CONTINUOUS, Starting on Fri12/09/23 at 1900, Until Fri12/10/23 at 1106 Rate/Dose Verify 12/10/2023 8:08 AM CRANE MANAGER 75 mL/hr $New Bag 12/09/2023 10:09 PM CRANE MANAGER 75 mL/hr $New Bag 12/09/2023 7:15 PM CRANE MANAGER 75 mL/hr loperamide (IMODIUM) capsule 2 mg 2 mg, Oral, 4 TIMES DAILY PRN, diarrhea, Starting on Fri12/09/23 at 1908, maximum: 16 mg/day magnesium oxide (MAG-OX) tablet 400 mg 400 mg, Oral, EVERY 4 HOURS, First dose on Fri12/09/23 at 2120, For 2 doses, Avoid using oral magnesium if patient has current diarrhea. Magnesium level 1.6-2 mg/dL Administer 400 mg ORAL magnesium x 2 doses and recheck magnesium level the AM after the last ORAL dose. Ordered from the Magnesium replacement order set., Magnesium Replacement: Magnesium level 1.6-2 mg/dL, Recheck: Magnesium level next AM $Given 12/10/2023 2:16 AM CRANE MANAGER 400 mg $Given 12/09/2023 10:13 PM CRANE MANAGER 400 mg magnesium oxide (MAG-OX) tablet 400 mg 400 mg, Oral, EVERY 4 HOURS, First dose on Fri12/11/23 at 0600, For 2 doses, Avoid using oral magnesium if patient has current diarrhea. Magnesium level 1.6-2 mg/dL Administer 400 mg ORAL magnesium x 2 doses and recheck magnesium level the AM after the last ORAL dose. Ordered from the Magnesium replacement order set., Magnesium Replacement: Magnesium level 1.6-2 mg/dL, Recheck: Magnesium level next AM $Given 12/11/2023 9:05 AM CRANE MANAGER 400 mg $Given 12/11/2023 6:09 AM CRANE MANAGER 400 mg magnesium sulfate 4 g in 100 mL sterile water intermittent infusion 4 g, Intravenous, Administer over 120 Minutes, at 50 mL/hr, ONCE, On Fri12/10/23 at 0800, For 1 dose, Magnesium level 1.1-1.5 mg/dL. Administer 4 gm magnesium IV x 1 dose and recheck magnesium level 2-4 hours AFTER the last dose is infused. Ordered from the Magnesium replacement order set. $New Bag 12/10/2023 8:09 AM CRANE MANAGER 4 g 50 mL/hr ondansetron (ZOFRAN ODT) ODT tab 4 mg 4 mg, Oral, EVERY 6 HOURS PRN, nausea, vomiting, Starting on Fri12/09/23 at 1957, This is Step 1 of nausea and [...] vomiting, Administer over 2-5 Minutes, Starting on Fri12/09/23 at 1956, Give IF patient unable to tolerate oral medication. This is Step 1 of nausea and vomiting management. If nausea not resolved in 15 minutes, go to Step 2 prochlorperazine (COMPAZINE). Irritant. senna-docusate (SENOKOT-S/PERICOLACE) 8.6-50 MG per tablet 1 tablet 1 tablet, Oral, 2 TIMES DAILY PRN, constipation, Starting on Fri12/09/23 at 1956, If no bowel movement in 24 hours, [...] 2 TIMES DAILY PRN, constipation, Starting on Fri12/09/23 at 1956, IF more than 1 constipation PRN medication is ordered, administer step-naranjo as indicated, moving to the next step ONLY if prior step ineffective. Step 1: senna-docusate (SENOKOT-S; PERICOLACE) OR bisacodyl (DULCOLAX) EC tablet Step 2: polyethylene glycol (MIRALAX/GLYCOLAX) Step 3: bisacodyl (DULCOLAX) suppository Step 4: enema Hold for loose stools. sodium chloride 0.9% BOLUS 1,000 mL Intravenous, 1,000 mL, ONCE, at 1,000 mL/hr, Administer over 1 Hours, On Fri12/09/23 at 1340, For 1 dose $[employer] 12/09/2023 1:45 PM CRANE MANAGER 1,000 mLs 1000 mL/hr sodium chloride 0.9% BOLUS 1,000 mL Intravenous, 1,000 mL, ONCE, at 1,000 mL/hr, Administer over 1 Hours, On Fri12/09/23 at 1745, For 1 dose $New Bag 12/09/2023 5:47 PM CRANE MANAGER 1,000 mLs 1000 mL/hr tamsulosin (FLOMAX) capsule 0.8 mg 0.8 mg, Oral, DAILY, First dose on Fri12/10/23 at 0800, Administer 30 minutes after the same meal each day. Capsules should be swallowed whole; do not crush chew or open. $Given 12/11/2023 9:05 AM CRANE MANAGER 0.8 mg $Given 12/10/2023 8:56 AM CRANE MANAGER 0.8 mg thiamine (B-1) tablet 100 mg 100 mg, Oral, DAILY, First dose on Fri12/10/23 at 0800 $Given 12/11/2023 9:05 AM CRANE MANAGER 100 mg $Given 12/10/2023 8:56 AM CRANE MANAGER 100 mg documented in this encounter Active and Recently Administered Medications Times are shown in CRANE MANAGER. Scheduled Medication Order 12/09/2023 12/10/2023 12/11/2023 aspirin EC tablet 81 mg 81 mg, Oral, DAILY, First dose on Fri12/10/23 at 0800, DO NOT CRUSH. 0856 ($Given - Provider: Sylvia Hendrix RN) 0905 ($Given - Provider: Sylvia Hendrix RN) atorvastatin (LIPITOR) tablet 40 mg 40 mg, Oral, EVERY EVENING, First dose on Fri12/09/23 at 2000 2213 ($Given - Provider: Ronit Wesley, PILO) 1936 ($Given - Provider: Catarino Russ RN) disulfiram (ANTABUSE) tablet 500 mg 500 mg, Oral, DAILY, First dose on Fri12/10/23 at 0800 0856 ($Given - Provider: Sylvia Hendrix RN) 0905 ($Given - Provider: Sylvia Hendrix RN) escitalopram (LEXAPRO) tablet 60 mg 60 mg, Oral, AT BEDTIME, First dose (after last modification) on Fri12/09/23 at 2200 2213 ($Given - Provider: Ronit Wesley RN) 2119 ($Given - Provider: Catarino Russ, PILO) gadobutrol (GADAVIST) injection 7 mL (COMPLETED) 7 mL, Intravenous, ONCE, On Fri12/09/23 at 211, For 1 dose, Supplied by, and administered by MRI. 2120 ($Given - Provider: Edmond Higgins) heparin ANTICOAGULANT injection 5,000 Units 5,000 Units, Subcutaneous, EVERY 8 HOURS, First dose on Fri12/09/23 at 2000, HOLD heparin IF platelet count falls below 50% baseline or less than 100,000 / ??L and notify provider. Use this product If CrCl less than 30 mL/min. High concentration heparin. Not for line flush or cath care. 2211 ($Given - Provider: Ronit Wesley RN) 0554 ($Given - Provider: Ronit Wesley RN)1430 ($Given - Provider: Sylvia Hendrix RN)212 ($Given - Provider: Catarino Russ, PILO) 0609 ($Given - Provider: Alessia Tolliver RN)1400 (Canceled Entry - Provider: Orders Generic Provider - Comment: Automatically canceled at discontinue of medication order) magnesium oxide (MAG-OX) tablet 400 mg (COMPLETED) 400 mg, Oral, EVERY 4 HOURS, First dose on Fri12/09/23 at 2119, For 2 doses, Avoid using oral magnesium if patient has current diarrhea. Magnesium level 1.6-2 mg/dL Administer 400 mg ORAL magnesium x 2 doses and recheck magnesium level the AM after the last ORAL dose. Ordered from the Magnesium replacement order set., Magnesium Replacement: Magnesium level 1.6-2 mg/dL, Recheck: Magnesium level next AM 2212 ($Given - Provider: Ronit Wesley RN) 0216 ($Given - Provider: Ronit Wesley RN) magnesium oxide (MAG-OX) tablet 400 mg (COMPLETED) 400 mg, Oral, EVERY 4 HOURS, First dose on Fri12/11/23 at 0600, For 2 doses, Avoid using oral magnesium if patient has current diarrhea. Magnesium level 1.6-2 mg/dL Administer 400 mg ORAL magnesium x 2 doses and recheck magnesium level the AM after the last ORAL dose. Ordered from the Magnesium replacement order set., Magnesium Replacement: Magnesium level 1.6-2 mg/dL, Recheck: Magnesium level next AM 0609 ($Given - Provider: Alessia Tolliver RN)0905 ($Given - Provider: Sylvia Hendrix RN) magnesium sulfate 4 g in 100 mL sterile water intermittent infusion (COMPLETED) 4 g, Intravenous, Administer over 120 Minutes, at 50 mL/hr, ONCE, On Fri12/10/23 at 0800, For 1 dose, Magnesium level 1.1-1.5 mg/dL. Administer 4 gm magnesium IV x 1 dose and recheck magnesium level 2-4 hours AFTER the last dose is infused. Ordered from the Magnesium replacement order set. 0809 ($New Bag - Provider: Sylvia Hendrix RN) sodium chloride 0.9% BOLUS 1,000 mL (COMPLETED) Intravenous, 1,000 mL, ONCE, at 1,000 mL/hr, Administer over 1 Hours, On Fri12/09/23 at 1340, For 1 dose 1345 ($New Bag - Provider: Karen Samuel RN)1657 (Stopped - Provider: Karen Samuel, PILO) sodium chloride 0.9% BOLUS 1,000 mL (COMPLETED) Intravenous, 1,000 mL, ONCE, at 1,000 mL/hr, Administer over 1 Hours, On Fri12/09/23 at 1745, For 1 dose 1747 ($New Bag - Provider: Karen Samuel, PILO)1915 (Stopped - Provider: Maryse Long RN) tamsulosin (FLOMAX) capsule 0.8 mg 0.8 mg, Oral, DAILY, First dose on Fri12/10/23 at 0800, Administer 30 minutes after the same meal each day. Capsules should be swallowed whole; do not crush chew or open. 0856 ($Given - Provider: Sylvia Hendrix RN) 0905 ($Given - Provider: Sylvia Hendrix RN) thiamine (B-1) tablet 100 mg 100 mg, Oral, DAILY, First dose on Fri12/10/23 at 0800 0856 ($Given - Provider: Sylvia Hendrix RN) 0905 ($Given - Provider: Sylvia Hendrix RN) Continuous Medication Order 12/09/2023 12/10/2023 12/11/2023 lactated ringers infusion (CANCELED) at 75 mL/hr, Intravenous, CONTINUOUS, Starting on Fri12/09/23 at 1900, Until Fri12/10/23 at 1106 1915 ($New Bag - Provider: Maryse Long, RN)2209 ($New Bag - Provider: Ronit Wesley, RN) 0808 (Rate/Dose Verify - Provider: Sylvia Hendrix RN)1115 (Stopped - Provider: Sylvia Hendrix RN) PRN Medication Order 12/09/2023 12/10/2023 12/11/2023 acetaminophen (TYLENOL) Suppository 650 mg(Linked Group 1) 650 mg, Rectal, EVERY 4 HOURS PRN, mild pain, other, and adjunct with moderate or severe pain or per patient request, Starting on Fri12/09/23 at 1956, Alternate with ibuprofen if ordered. Maximum acetaminophen dose from all sources = 75 mg/kg/day not to exceed 4 grams/day. acetaminophen (TYLENOL) tablet 650 mg(Linked Group 1) 650 mg, Oral, EVERY 4 HOURS PRN, mild pain, other, and adjunct with moderate or severe pain or per patient request, Starting on Fri12/09/23 at 1956, Alternate with ibuprofen if ordered. Maximum acetaminophen dose from all sources = 75 mg/kg/day not to exceed 4 grams/day. loperamide (IMODIUM) capsule 2 mg 2 mg, Oral, 4 TIMES DAILY PRN, diarrhea, Starting on Fri12/09/23 at 1908, maximum: 16 mg/day melatonin tablet 1 mg 1 mg, Oral, AT BEDTIME PRN, sleep, Starting on Fri12/09/23 at 1956, Do not give unless at least 6 hours of uninterrupted sleep is expected. If patient has multiple medications ordered PRN sleep/insomnia, offer melatonin first. ondansetron (ZOFRAN ODT) ODT tab 4 mg(Linked Group 2) 4 mg, Oral, EVERY 6 HOURS PRN, nausea, vomiting, Starting on Fri12/09/23 at 1956, This is Step 1 of nausea and [...] vomiting, Administer over 2-5 Minutes, Starting on Fri12/09/23 at 1956, Give IF patient unable to tolerate oral medication. This is Step 1 of nausea and vomiting management. If nausea not resolved in 15 minutes, go to Step 2 prochlorperazine (COMPAZINE). Irritant. senna-docusate (SENOKOT-S/PERICOLACE) 8.6-50 MG per tablet 1 tablet(Linked Group 3) 1 tablet, Oral, 2 TIMES DAILY PRN, constipation, Starting on Fri12/09/23 at 1956, If no bowel movement in 24 hours, [...] 8.6-50 MG per tablet 2 tablet(Linked Group 3) 2 tablet, Oral, 2 TIMES DAILY PRN, constipation, Starting on Fri12/09/23 at 1956, IF more than 1 constipation PRN medication is ordered, administer step-naranjo as indicated, moving to the next step ONLY if prior step ineffective. Step 1: senna-docusate (SENOKOT-S; PERICOLACE) OR bisacodyl (DULCOLAX) EC tablet Step 2: polyethylene glycol (MIRALAX/GLYCOLAX) Step 3: bisacodyl (DULCOLAX) suppository Step 4: enema Hold for loose stools. Linked Groups Order Group 1: acetaminophen (TYLENOL) tablet 650 mgJump to med 650 mg, Oral, EVERY 4 HOURS PRN, mild pain, other, and adjunct with moderate or severe pain or per patient request, Starting on Fri12/09/23 at 1956, Alternate with ibuprofen if ordered. Maximum acetaminophen dose from all sources = 75 mg/kg/day not to exceed 4 grams/day. Or acetaminophen (TYLENOL) Suppository 650 mgJump to med 650 mg, Rectal, EVERY 4 HOURS PRN, mild pain, other, and adjunct with moderate or severe pain or per patient request, Starting on Fri12/09/23 at 1956, Alternate with ibuprofen if ordered. Maximum acetaminophen dose from all sources = 75 mg/kg/day not to exceed 4 grams/day. Group 2: ondansetron (ZOFRAN ODT) ODT tab 4 mgJump to med 4 mg, Oral, EVERY 6 HOURS PRN, nausea, vomiting, Starting on Fri12/09/23 at 1956, This is Step 1 of nausea and [...] vomiting, Administer over 2-5 Minutes, Starting on Fri12/09/231956, Give IF patient unable to tolerate oral medication. This is Step 1 of nausea and vomiting management. If nausea not resolved in 15 minutes, go to Step 2 prochlorperazine (COMPAZINE). Irritant. Group 3: senna-docusate (SENOKOT-S/PERICOLACE) 8.6-50 MG per tablet 1 tabletJump to med 1 tablet, Oral, 2 TIMES DAILY PRN, constipation, Starting on Fri12/09/23 at 1956, If no bowel movement in 24 hours, [...] 2 TIMES DAILY PRN, constipation, Starting on Fri12/09/23 at 1957, IF more than 1 constipation PRN medication is ordered, administer step-naranjo as indicated, moving to the next step ONLY if prior step ineffective. Step 1: senna-docusate (SENOKOT-S; PERICOLACE) OR bisacodyl (DULCOLAX) EC tablet Step 2: polyethylene glycol (MIRALAX/GLYCOLAX) Step 3: bisacodyl (DULCOLAX) suppository Step 4: enema Hold for loose stools. documented in this encounter Additional Health Concerns Infection Onset Date Last Indicated Resolved Time Rule Out COVID-19 12/09/2023 12/09/2023 12/09/2023 9:14 PM CRANE MANAGER Assessment Noted Time PHQ-9 Depression Total Score: 10 022 4:15 PM CDT documented as of this encounter Care Teams Plant Inspector Relationship Specialty Start Date End Date Nathalie Tate MD [address] [place] [address] PCP - General Family Medicine 12/09/23 Nathalie Tate MD [address] [place] [address] Assigned PCP 06/28/23 documented as of this encounter
--- OUTSIDE RECORDS SUMMARY | 2024-03-04 03:49 | XMS_ITS | Encounter Summary ---
Author Name Unknown Organization [facility] Address [address] [place] [address] Care Team Providers Care Kohinoor Operator Name Role Phone Alton Alonzo MD Primary Care Provide r Alton Alonzo MD Unavailable [phone] Alton Alonzo MD Unavailable Nathalie Tate MD Unavailable Nathalie Tate MD Unavailable [phone] Alton Alonzo MD Unavailable [phone] Nathalie Tate MD Unavailable [phone] Nathalie Tate MD Primary Care Provider + [phone] Encounter Details Date Type Department Care Team (Late st Contact Info) Description 01/22/2021 MyC Medical Advice [facility] Physicians [address] [place] [phone] Conchita Mayo CMA Social History Tobacco Use [...] Transportation General On track( 019 3:46 PM CONNIE CLEANER) Yes Nani Sainz LSW Note: Goal Statement: Caregiver will learn of options for transportation and volunteer respite services. Measure of Success: Caregiver will know if options are available. Supportive Steps to Achieve: CC will send resources via text and caregiver will call. Barriers: recently moved home after rehab. 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 documented as of this encounter Visit Diagnoses Not on filedocumented in this encounter Additional Health Concerns Infection Onset Date Last Indicated Resolved Time Rule Out COVID-19 12/09/2023 12/09/2023 12/09/2023 9:14 PM CONNIE CLEANER Assessment Noted Time PHQ-9 Depression Total Score: 6 09/13/20 19 9:54 AM CONNIE CLEANER documented as of this encounter Care Teams Kohinoor Operator Relationship Specialty Start Date End Date Alton Alonzo MD [address] [place] [address] PCP - General 03/14/09 12/08/23 Nathalie Tate MD [address] [place] [address] PCP - General Family Medicine 12/09/23 Alton Alonzo MD [address] [address] Assigned PCP 07/23/12 01/26/22 Alton Alonzo MD [address] [address] Assigned PCP 02/03/22 08/16/22 Nathalie Tate MD [facility] [address] [place] [address] Assigned PCP 01/27/22 02/02/22 Nathalie Tate MD [facility] [address] [place] [address] Assigned PCP 08/17/22 12/27/22 Alton Alonzo MD [address] [place] [address] Assigned PCP 12/28/22 06/27/23 Nathalie Tate MD [facility] [address] [place] [address] Assigned PCP 06/28/23 documented as of this encounter
--- OUTSIDE RECORDS SUMMARY | 2024-03-04 03:49 | XMS_ITS | Encounter Summary ---
Author Name Unknown Organization [facility] Address [address] [place] [address] Care Team Providers Care Pari Mutuel Ticket Seller Name Role Phone Alton Alonzo MD Primary Care Provide r Alton Alonzo MD Unavailable [phone] Nathalie Tate MD Unavailable [phone] Alton Alonzo MD Unavailable Nathalie Tate MD Unavailable [phone] Nathalie Tate MD Primary Care Provider + [phone] Encounter Details Date Type Department Care Team (Late st Contact Info) Description 07/29/2022 MyC Medical Advice [facility] Physicians [address] [place] [phone] Felicita Carr CMA Social History Tobacco Use Types Packs/Day Years Used Date Smoking Tobacco: Every Day Cigarettes 0.5 54.4 Started: 10/20/1968 Other Smokeless Tobacco: Never Comments:Uses Nicotrol inhal er Alcohol Use Standard Drinks/Week Comments No 0 (1 standard drink = 0.6 oz pure alcohol) 100ml or more daily; recent relapse 08/18/15 PHQ-2 Answer Date Recorded PHQ-2 Score 5 02/13/2021 Sex and Gender Information Value Date Recorded Sex Assigned at Not on file Gender Identity Not on file Sexual Orientation Not on file documented as of this encounter Plan of Treatment Not on file documented as of this encounter Goals Goal Patient Goal Type Associated Problems Recent Progress Patient-Stated? Author Transportation General On track( 019 3:46 PM ROTARY SOIL STABILIZER OPERATOR) Yes Nani Sainz LSW Note: Goal Statement: Caregiver will learn of options for transportation and volunteer respite services. Measure of Success: Caregiver will know if options are available. Supportive Steps to Achieve: CC will send resources via text and caregiver will call. Barriers: recently moved home after rehab. Strengths: Caregiver works, just started with [employer] today, 1- Date to Achieve By: January 17, 2019 Patient expressed understanding of goal: caregiver understands. documented as of this encounter Visit Diagnoses Not on filedocumented in this encounter Additional Health Concerns Infection Onset Date Last Indicated Resolved Time Rule Out COVID-19 12/09/2023 12/09/2023 12/09/2023 9:14 PM ROTARY SOIL STABILIZER OPERATOR Assessment Noted Time PHQ-9 Depression Total Score: 11 021 10:09 AM CDT documented as of this encounter Care Teams Pari Mutuel Ticket Seller Relationship Specialty Start Date End Date Alton Alonzo MD [address] [address] PCP - General 03/14/09 12/08/23 Nathalie Tate MD [address] [place] [address] PCP - General Family Medicine 12/09/23 Alton Alonzo MD [address] [address] Assigned PCP 02/03/22 08/16/22 Nathalie Tate MD [address] [place] [address] Assigned PCP 08/17/22 12/27/22 Alton Alonzo MD [address] [place] [address] Assigned PCP 12/28/22 06/27/23 Nathalie Tate MD [address] [place] [address] Assigned PCP 06/28/23 documented as of this encounter
--- OUTSIDE RECORDS SUMMARY | 2024-03-04 03:49 | XMS_ITS | Encounter Summary ---
Author Name Unknown Organization [facility] Address [address] [place] [address] Care Team Providers Care Manager Produce Name Role Phone Alton Alonzo MD Primary Care Provide r Alton Alonzo MD Unavailable Nathalie Tate MD Unavailable [phone] Alton Alonzo MD Unavailable Nathalie Tate MD Unavailable [phone] Nathalie Tate MD Primary Care Provider + [phone] Encounter Details Date Type Department Care Team (Late st Contact Info) Description 07/19/2022 MyC Medical Advice [facility] Physicians [address] [place] [phone] Eugenie Amador CMA Social History Tobacco Use Types Packs/Day [...] Transportation General On track( 019 3:46 PM SCIENTIFIC SYSTEMS ANALYST) Yes Nani Sainz LSW Note: Goal Statement: Caregiver will learn of options for transportation and volunteer respite services. Measure of Success: Caregiver will know if options are available. Supportive Steps to Achieve: CC will send resources via text and caregiver will call. Barriers: recently moved home after rehab. Strengths: Caregiver works, just started with [employer] today, 1- Date to Achieve By: January 17, 2019 Patient expressed understanding of goal: caregiver understands. documented as of this encounter Visit Diagnoses Not on filedocumented in this encounter Additional Health Concerns Infection Onset Date Last Indicated Resolved Time Rule Out COVID-19 12/09/2023 12/09/2023 12/09/2023 9:14 PM SCIENTIFIC SYSTEMS ANALYST Assessment Noted Time PHQ-9 Depression Total Score: 11 021 10:09 AM CDT documented as of this encounter Care Teams Manager Produce Relationship Specialty Start Date End Date Alton Alonzo MD [address] [address] PCP - General 03/14/09 12/08/23 Nathalie Tate MD [address] [place] [address] PCP - General Family Medicine 12/09/23 Alton Alonzo MD [address] [address] Assigned PCP 02/03/22 08/16/22 Nathalie Tate MD [address] [place] [address] Assigned PCP 08/17/22 12/27/22 Alton Alonzo MD [address], [id number] [place] [address] Assigned PCP 12/28/22 06/27/23 Nathalie Tate MD [address] [place] [address] Assigned PCP 06/28/23 documented as of this encounter
--- OUTSIDE RECORDS SUMMARY | 2024-03-04 03:49 | XMS_ITS | Encounter Summary ---
Author Name Unknown Organization [facility] Address [address] [place] [address] Care Team Providers Care Coordinator Integrated Marketing Name Role Phone Alton Alonzo MD Primary Care Provide r Nani SainzW Unavailable [phone] Alton Alonzo MD Unavailable [phone] [facility] Unavailable [phone] Alton Alonzo MD Unavailable Nathalie Taet MD Unavailable [phone] Nathalie Tate MD Unavailable [phone] Alton Alonzo MD Unavailable [phone] Nathalie Tate MD Unavailable [phone] Nathalie Tate MD Primary Care Provider [phone] Encounter Details Date Type Department Care Team (Late st Contact Info) Description 08/09/2015 [facility] Physicians [address] [place] [address] [facility] Social History Tobacco Use Types Packs/Day Years Used Date Smoking Tobacco: Every Day Cigarettes 0.5 30 Smokeless Tobacco: Never Alcohol Use Standard Drinks/Week Comments Yes 0 (1 standard drink = 0.6 oz pur e alcohol) currently sober, hx abuse Sex and Gender Information Value Date Recorded [...] Out COVID-19 12/09/2023 12/09/2023 12/09/2023 9:14 PM TRANSPORTATION WORKER Assessment Noted Time PHQ-9 Depression Total Score: 10 015 7:17 AM CDT documented as of this encounter Care Teams Coordinator Integrated Marketing Relationship Specialty Start Date End Date Alton Alonzo MD [address] , [address] [address] PCP - General 03/14/09 12/08/23 Nathalie Tate MD [address] [place] [address] PCP - General Family Medicine 12/09/23 Nani Sainz LSW Lead Die Maker Electronic Primary Care - CC 10/15/1801/06 Alton Alonzo MD [address] , [address] [address] Assigned PCP 07/23/12 01/26/22 [facility]ENCY ([facility] ([place]) 05/18/19 07/01/19 Alton Alonzo MD [address], [address] [address] Assigned PCP 02/03/22 08/16/22 Nathalie Tate MD [address] [place] [address] Assigned PCP 01/27/22 02/02/22 Nathalie Tate MD [address] [place] [address] Assigned PCP 08/17/22 12/27/22 Alton Alonzo MD [address] [place] [address] Assigned PCP 12/28/22 06/27/23 Nathalie Tate MD [facility] [address] [place] [address] Assigned PCP 06/28/23 documented as of this encounter
--- OUTSIDE RECORDS SUMMARY | 2024-03-04 03:49 | XMS_ITS | Encounter Summary ---
Author Name Unknown Organization [facility] Address [address] [place] [address] Care Team Providers Care Continuous Improvement Coordinator Name Role Phone Alton Alonzo MD Primary Care Provide r Nani Sainz [facility] Unavailable [phone] Alton Alonzo MD Unavailable [facility] Unavailable Alton Alonzo MD Unavailable [phone] Nathalie Tate MD Unavailable [phone] Nathalie Tate MD Unavailable [phone] Alton Alonzo MD Unavailable Nathalie Tate MD Unavailable [phone] Nathalie Tate MD Primary Care Provider [phone] Reason for Visit * Reason Onset Date Comments CD Outpatient 03/24/2015 Other Encounter Details Date Type Department Care Team ([facility] Contact Info) Description 03/24/2015 Telephone [facility] Intake [address] [place] [address] Generic, Behavioral IntakeMD JUNG Outpatient Social History Tobacco Use Types Packs/Day [...] encounter Miscellaneous Notes * Telephone Encounter - Grady Sanchez LADC - 08/04/2017 1:34 PM CDT [facility] called and left counselor VM that client has entered [facility] treatment and she failed to call and let us know. CLAYTON Aldana * Telephone Encounter - Indira Chen - 05/22/2015 3:57 PM CDT ----- Message from CLAYTON Suggs sent at 05/22/2015 3:46 PM CDT ----- Regarding: Please schedule for Phase [place] Please schedule client for 20 sessions for Phase I in [place] starting tonight 05/22 at 5:30pm. Ly Quinn * Telephone Encounter - Ninfa Mirza - 05/15/2015 3:10 PM CDT ----- Message from CLAYTON Cruz sent at 05/15/2015 12:41 PM CDT ----- Regarding: orientation Please schedule client for orientation on Friday05/17/15 @ [facility] [place], no cert needed. 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 Per Porsche, appointments are in place to see a therapist 04/06/15 and Psychiatrist appointment is in March. B: Per , the client be drinking vodka on/off for several. Reported that after his mother in November 2014, the client started drinking heavily daily. Denies other drug use. Denies Legal issues. Hx of CD TX at [facility] 2002. A: CD evaluation. HX of Depression Medication: Citalopram R: Eval 04/10/15 @ 5:00p [place]. EdgardoT documented in this encounter Plan of Treatment Not on file documented as of this encounter Visit Diagnoses Not on filedocumented in this encounter Additional Health Concerns Infection Onset Date Last Indicated Resolved Time Rule Out COVID-19 12/09/2023 12/09/2023 12/09/2023 9:14 PM SPECIAL TECHNICAL OPERATIONS OFFICER documented as of this encounter Care Teams Continuous Improvement Coordinator Relationship Specialty Start Date End Date Alton Alonzo MD [address] [place] [address] PCP - General 03/14/09 12/08/23 Nathalie Tate MD [address] [address] PCP - General Family Medicine 12/09/23 Nani Sainz LSW Lead Collection Team Lead Primary Care - CC 10/15/1801/06 Alton Alonzo MD [address] [place] [address] Assigned PCP 07/23/12 01/26/22 [facility] HOME HEALTH AGENCY ([facility] ([place]) 05/18/19 07/01/19 Alton Alonzo MD [address] [address] Assigned PCP 02/03/22 08/16/22 Nathalie Tate MD [address] [place] [address] Assigned PCP 01/27/22 02/02/22 Nathalie Tate MD [facility] [address] [place] [address] Assigned PCP 08/17/22 12/27/22 Alton Alonzo MD [facility] [address] [place] [address] Assigned PCP 12/28/22 06/27/23 Nathalie Tate MD [address] [place] [address] Assigned PCP 06/28/23 documented as of this encounter
--- OUTSIDE RECORDS SUMMARY | 2024-03-04 03:49 | XMS_ITS | Encounter Summary ---
Author Name Unknown Organization [facility] Address [address] [place] [address] Care Team Providers Care World Designer Name Role Phone Alton Alonzo MD Primary Care Provide r Nani SainzW Unavailable [phone] Alton Alonzo MD Unavailable [phone] [facility] Unavailable Alton Alonzo MD Unavailable [phone] Nathalie Tate MD Unavailable [phone] Nathalie Tate MD Unavailable [phone] Alton Alonzo MD Unavailable Nathalie Tate MD Unavailable [phone] Nathalie Tate MD Primary Care Provider [phone] Encounter Details Date Type Department Care Team (Late st Contact Info) Description 11/10/2014 [facility] [place] [facility] Phys[facility] [address] [place] [address] [facility] Social History Tobacco Use Types Packs/Day Years Used Date Smoking Tobacco: Every Day Cigarettes 0.5 30 Smokeless Tobacco: Never Alcohol Use Standard Drinks/Week Comments No 0 [...] Out COVID-19 12/09/2023 12/09/2023 12/09/2023 9:14 PM CABLE TOOL OPERATOR documented as of this encounter Care Teams World Designer Relationship Specialty Start Date End Date Alton Alonzo MD [address] , [address] [address] PCP - General 03/14/09 12/08/23 Nathalie Tate MD [address], [place] [address] PCP - General Family Medicine 12/09/23 Nani Sainz LSW Lead Transfill Technician Primary Care - CC 10/15/1801/06 Alton Alonzo MD [address] [address] Assigned PCP 07/23/12 01/26/22 [facility] ([facility] ([place]) 05/18/19 07/01/19 Alton Alonzo MD [address] [address] Assigned PCP 02/03/22 08/16/22 Nathalie Tate MD [address], [place] [address] Assigned PCP 01/27/22 02/02/22 Nathalie Tate MD [address] [place] [address] Assigned PCP 08/17/22 12/27/22 Alton Alonzo MD [address] [address] Assigned PCP 12/28/22 06/27/23 Nathalie Tate MD [address], [place] [address] Assigned PCP 06/28/23 documented as of this encounter
--- OUTSIDE RECORDS SUMMARY | 2024-03-04 03:49 | XMS_ITS | Encounter Summary ---
Author Name Unknown Organization [facility] Address [address] [place] [address] Care Team Providers Care Tennis Net Maker Name Role Phone Alton Alonzo MD Primary Care Provide r Nani SainzW Unavailable [phone] Alton Alonzo MD Unavailable [phone] [facility] Unavailable [phone] Alton Alonzo MD Unavailable [phone] Nathalie Tate MD Unavailable Nathalie Tate MD Unavailable Alton Alonzo MD Unavailable Nathalie Tate MD Unavailable Nathalie Tate MD Primary Care Provider [phone] Encounter Details Date Type Department Care Team (Late st Contact Info) Description 06/20/2015 Scan Legal Document [facility] Physicians [address] [place] [address] Alton Alonzo MD [address] , [address] [address] Social History Tobacco Use Types Packs/Day Years [...] Rule Out COVID-12/09/2023 12/09/2023 12/09/2023 9:14 PM PRISON TEACHER documented as of this encounter Care Teams Tennis Net Maker Relationship Specialty Start Date End Date Alton Alonzo MD [address] [place] [address] PCP - General 03/14/09 12/08/23 Nathalie Tate MD [facility] [address] [place] [address] PCP - General Family Medicine 12/09/23 Nani Sainz LSW Lead Emulsion Operator Primary Care - CC 10/15/1801/06 Alton Alonzo MD [address] [place] [address] Assigned PCP 07/23/12 01/26/22 [facility] HOME HEALTH AGENCY ([facility]), ([place]) 05/18/19 07/01/19 Alton Alonzo MD [address] [place] [address] Assigned PCP 02/03/22 08/16/22 Nathalie Tate MD [address] [place] [address] Assigned PCP 01/27/22 02/02/22 Nathalie Tate MD [facility] [address] [place] [address] Assigned PCP 08/17/22 12/27/22 Alton Alonzo MD [facility] [address] [place] [address] Assigned PCP 12/28/22 06/27/23 Nathalie Tate MD [facility] [address] [place] [address] Assigned PCP 06/28/23 documented as of this encounter
--- OUTSIDE RECORDS SUMMARY | 2024-03-04 03:49 | XMS_ITS | Encounter Summary ---
Author Name Unknown Organization [facility] Address [address] [place] [address] Care Team Providers Care Creative Services Writer Name Role Phone Alton Alonzo MD Primary Care Provide r Alton Alonzo MD Unavailable [phone] Alton Alonzo MD Unavailable [phone] Nathalie Tate MD Unavailable [phone] Nathalie Tate MD Unavailable [phone] Alton Alonzo MD Unavailable [phone] Nathalie Tate MD Unavailable [phone] Nathalie Tate MD Primary Care Provider + [phone] Encounter Details Date Type Department Care Team (Late st Contact Info) Description 01/23/2021 Documentation Only INTERFACED REPORT Unknown, Provider Social [...] Transportation General On track( 019 3:46 PM HEMATOLOGY SUPERVISOR) Yes Nani Sainz LSW Note: Goal Statement: Caregiver will learn of options for transportation and volunteer respite services. Measure of Success: Caregiver will know if options are available. Supportive Steps to Achieve: CC will send resources via text and caregiver will call. Barriers: recently moved home after rehab. Strengths: Caregiver works, just started with [employer] today, 1 Date to Achieve By: January 17, 2019 Patient expressed understanding of goal: caregiver understands. documented as of this encounter Visit Diagnoses Not on filedocumented in this encounter Additional Health Concerns Infection Onset Date Last Indicated Resolved Time Rule Out COVID-19 12/09/2023 12/09/2023 12/09/2023 9:14 PM HEMATOLOGY SUPERVISOR Assessment Noted Time PHQ-9 Depression Total Score: 6 09/13/20 19 9:54 AM HEMATOLOGY SUPERVISOR documented as of this encounter Care Teams Creative Services Writer Relationship Specialty Start Date End Date Alton Alonzo MD [address] , [address] [address] PCP - General 03/14/09 12/08/23 Nathalie Tate MD [address] [place] [address] PCP - General Family Medicine 12/09/23 Alton Alonzo MD [address], [address] [address] Assigned PCP 07/23/12 01/26/22 Alton Alonzo MD [address] , [address] [address] Assigned PCP 02/03/22 08/16/22 Nathalie Tate MD [address] [place] [address] Assigned PCP 01/27/22 02/02/22 Nathalie Tate MD [address] [place] [address] Assigned PCP 08/17/22 12/27/22 Alton Alonzo MD [address] [place] [address] Assigned PCP 12/28/22 06/27/23 Nathalie Tate MD [address] [place] [address] Assigned PCP 06/28/23 documented as of this encounter
--- OUTSIDE RECORDS SUMMARY | 2024-03-04 03:49 | XMS_ITS | Encounter Summary ---
Author Name Unknown Organization [facility] Address [address] [place] [address] Care Team Providers Care Registered Mail Clerk Name Role Phone Alton Alonzo MD Primary Care Provide r Alton Alonzo MD Unavailable [phone] Alton Alonzo MD Unavailable Nathalie Tate MD Unavailable Nathalie Tate MD Unavailable [phone] Alton Alonzo MD Unavailable Nathalie Tate MD Unavailable [phone] Nathalie Tate MD Primary Care Provider + [phone] Encounter Details Date Type Department Care Team (Late st Contact Info) Description 07/14/2020 Orders Only [facility] [place] [facility] [address] [place] [address] Lizzy Good MA Progressive cognitive dysfunction Social History Tobacco Use Types Packs/Day Years [...] on file Sexual Orientation Not on file COVID-19 Exposure Response Date Recorded In the last month, have you been in contact with someone who was confirmed or suspected to have Coronavirus / COVID-19? No / Unsure 07/06/2020 1:28 PM CDT documented as of this encounter Plan of Treatment Not on file documented as of this encounter Goals Goal Patient Goal Type Associated Problems Recent Progress Patient-Stated? Author Transportation General On track( 019 3:46 PM SANDING MACHINE TENDER AUTOMATIC) Yes Nani Sainz LSW Note: Goal Statement: Caregiver will learn of options for transportation and volunteer respite services. Measure of Success: Caregiver will know if options are available. Supportive Steps to Achieve: CC will send resources via text and caregiver will call. Barriers: recently moved home after rehab. 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 documented as of this encounter Procedures Procedure Name Priority Date/Time Associated Diagnosis Comments [facility] MRI BRAIN WO&W CONTRAST Routine 07/14/2020 Progressive cognitive dysfunction documented in this encounter Results * C MRI BRAIN WO&W CONTRAST (07/14/2020) Anatomical Region Laterality Modality Other Narrative 07/14/2020 [facility] Phone: [phone] * Fax: [phone] [address] [place] [id number] [place] [address] Age: 64 Y Dept No.: [id number] JED [place] : 1955 Chart # Gender: M Req. Phys: Alton Alonzo MD Clinic MRN: Clinic: [facility] Acc#: [id number] Exam: MRI BRAIN WITHOUT AND WITH CONTRAST Exam Date: 07/14/2020 EXAM: MRI BRAIN WITHOUT AND WITH CONTRAST LOCATION: [facility] DATE/TIME: 07/14/2020 9:54 AM INDICATION: Progressive cognitive dysfunction. COMPARISON: CT dated 04/06/2019. CONTRAST: 6 ml Gadavist TECHNIQUE: Routine multiplanar multisequence head MRI without and with intravenous contrast. FINDINGS: INTRACRANIAL CONTENTS: No acute or subacute infarct. No mass, acute hemorrhage, or extra-axial fluid collections. There is diffuse parenchymal volume loss. White matter changes are present in the cerebral hemispheres that are consistent with small vessel ischemic disease in this age patient. Some of the T2 hyperintensities appear to be due to chronic infarcts. Small areas of encephalomalacia are seen in the cortex of the left cerebellum. Normal position of the cerebellar tonsils. No pathologic contrast enhancement. SELLA: No abnormality accounting for technique. OSSEOUS STRUCTURES/SOFT TISSUES: Normal marrow signal. The major intracranial vascular flow voids are maintained. ORBITS: No abnormality accounting for technique. SINUSES/MASTOIDS: No paranasal sinus mucosal disease. No middle ear or mastoid effusion. IMPRESSION: 1. No acute pathology, no bleed, mass, or acute infarcts. 2. Enlarged ventricles and sulci compatible with atrophy. T2 hyperintensities in the white matter consistent with small vessel ischemia in this age patient. 3. 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 These were present on the previous CT scan. Page 1 of 2 Exam: MRI BRAIN WITHOUT AND WITH CONTRAST Exam Date: 07/14/2020 JASMEET JED Caleb : 1955 Age: 64 Y Acc#: [id number] Performed by: EDENILSON Transcribed By: ANANYA on: 07/14/2020 11:07 AM CDT Finalized By: GLADYS MEAD M.D. on: 07/14/2020 11:11 AM CDT Dictated By: GLADYS MEAD M.D. Signed by: NAMRATA Page 2 of 2 Alton Alonzo MD SPECIAL IMAGI NG STUDIES documented in this encounter Visit Diagnoses Diagnosis Progressive cognitive dysfunction Unspecified persistent mental disorders due to conditions classified elsewhere documented in this encounter Additional Health Concerns Infection Onset Date Last Indicated Resolved Time Rule Out COVID-19 12/09/2023 12/09/2023 12/09/2023 9:14 PM SANDING MACHINE TENDER AUTOMATIC Assessment Noted Time PHQ-9 Depression Total Score: 6 09/13/20 19 9:54 AM SANDING MACHINE TENDER AUTOMATIC documented as of this encounter Care Teams Registered Mail Clerk Relationship Specialty Start Date End Date Alton Alonzo MD [address], [address] [place] [address] PCP - General 03/14/09 12/08/23 Nathalie Tate MD [address] [place] [place] [address] PCP - General Family Medicine 12/09/23 Alton Alonzo MD [address], [address] [place] [address] Assigned PCP 07/23/12 01/26/22 Alton Alonzo MD [address], [address] [place] [address] Assigned PCP 02/03/22 08/16/22 Nathalie Tate MD [address] [place] [place] [address] Assigned PCP 01/27/22 02/02/22 Nathalie Tate MD [address] [place] [place] [address] Assigned PCP 08/17/22 12/27/22 Alton Alonzo MD [address] [address] [place] [address] Assigned PCP 12/28/22 06/27/23 Nathalie Tate MD [address] [place] [place] [address] Assigned PCP 06/28/23 documented as of this encounter
--- OUTSIDE RECORDS SUMMARY | 2024-03-04 03:49 | XMS_ITS | Encounter Summary ---
Author Name Unknown Organization [place] Address [address] [place] [address] Care Team Providers Care Member Services Representative Name Role Phone Alton Alonzo MD Primary Care Provide r Alton Alonzo MD Unavailable [phone] Alton Alonzo MD Unavailable [phone] Nathalie Tate MD Unavailable [phone] Nathalie Tate MD Unavailable [phone] Alton Alonzo MD Unavailable [phone] Nathalie Tate MD Unavailable [phone] Nathalie Tate MD Primary Care Provider + [phone] Encounter Details Date Type Department Care Team (Late st Contact Info) Description 02/07/2021 Documentation Only INTERFACED REPORT Unknown, Provider Social [...] Transportation General On track( 019 3:46 PM INSTRUCTIONAL DESIGN SPECIALIST) Yes Nani Sainz LSW Note: Goal Statement: Caregiver will learn of options for transportation and volunteer respite services. Measure of Success: Caregiver will know if options are available. Supportive Steps to Achieve: CC will send resources via text and caregiver will call. Barriers: recently moved home after rehab. Strengths: Caregiver works, just started with [employer] today, 1 Date to Achieve By: January 17, 2019 Patient expressed understanding of goal: caregiver understands. documented as of this encounter Visit Diagnoses Not on filedocumented in this encounter Additional Health Concerns Infection Onset Date Last Indicated Resolved Time Rule Out COVID-19 12/09/2023 12/09/2023 12/09/2023 9:14 PM INSTRUCTIONAL DESIGN SPECIALIST Assessment Noted Time PHQ-9 Depression Total Score: 6 09/13/20 19 9:54 AM INSTRUCTIONAL DESIGN SPECIALIST documented as of this encounter Care Teams Member Services Representative Relationship Specialty Start Date End Date Alton Alonzo MD [address] , [address] [address] PCP - General 03/14/09 12/08/23 Nathalie Tate MD [address] [place] [address] PCP - General Family Medicine 12/09/23 Alton Alonzo MD [address], [address] [address] Assigned PCP 07/23/12 01/26/22 Alton Alonzo MD [address] , [address] [address] Assigned PCP 02/03/22 08/16/22 Nathalie Tate MD [address] [facility] [place] [address] Assigned PCP 01/27/22 02/02/22 Nathalie Tate MD [address] [facility] [place] [address] Assigned PCP 08/17/22 12/27/22 Alton Alonzo MD [address] [place] [address] Assigned PCP 12/28/22 06/27/23 Nathalie Tate MD [address] [place] [address] Assigned PCP 06/28/23 documented as of this encounter
--- OUTSIDE RECORDS SUMMARY | 2024-03-04 03:49 | XMS_ITS | Encounter Summary ---
Author Name Unknown Organization [facility] Address [address] [place] [address] Care Team Providers Care Automobile Parts Assembler Name Role Phone Alton Alonzo MD Primary Care Provide r Nani SainzW Unavailable [phone] Alton Alonzo MD Unavailable [facility] Unavailable [phone] Alton Alonzo MD Unavailable [phone] Nathalie Tate MD Unavailable [phone] Nathalie Tate MD Unavailable [phone] Alton Alonzo MD Unavailable Nathalie Tate MD Unavailable [phone] Nathalie Tate MD Primary Care Provider [phone] Encounter Details Date Type Department Care Team (Late st Contact Info) Description 02/22/2015 [facility] [address] [place] [address] [facility] Social History Tobacco Use Types Packs/Day Years [...] encounter Miscellaneous Notes * Telephone Encounter - Savanna Lynn - 02/22/2015 11:24 AM CDTFrom: Jed Ellis Jasmeet To: Alton Alonzo MD Sent: 02/22/2015 11:22 AM CDT Subject: Anxiety/Panic attacks I hate to be a pest, but the panic attacks are continuing. Can the Ativan prescription be renewed, or can we try something else until the citalopram has the desired effect? I am on the third day for the citalopram. Thank you Nathan Alamo documented in this encounter Plan of Treatment Not on file documented as of this encounter Visit Diagnoses Not on filedocumented in this encounter Additional Health Concerns Infection Onset Date Last Indicated Resolved Time Rule Out COVID-12/09/2023 12/09/2023 12/09/2023 9:14 PM MANAGER DELIVERY documented as of this encounter Care Teams Automobile Parts Assembler Relationship Specialty Start Date End Date Alton Alonzo MD [address] [address] PCP - General 03/14/09 12/08/23 Nathalie Tate MD [address] [place] [address] PCP - General Family Medicine 12/09/23 Nani Sainz LSW Lead Senior Network Administrator Primary Care - CC 10/15/1801/06 Alton Alonzo MD [address] [address] Assigned PCP 07/23/12 01/26/22 [facility] [place] 05/18/19 07/01/19 Alton Alonzo MD [address] [place] [address] Assigned PCP 02/03/22 08/16/22 Nathalie Tate MD [address] [place] [address] Assigned PCP 01/27/22 02/02/22 Nathalie Tate MD [address] [place] [address] Assigned PCP 08/17/22 12/27/22 Alton Alonzo MD [address] [place] [address] Assigned PCP 12/28/22 06/27/23 Nathalie Tate MD [facility] [address] [place] [address] Assigned PCP 06/28/23 documented as of this encounter
--- OUTSIDE RECORDS SUMMARY | 2024-03-04 03:50 | XMS_ITS | Data Portability ---
Author Name Unknown Address [address] [place] [address] Phone [phone] Organization [facility], [facility] Address [address] [place] [address] Care Team Providers Care Mine Exploration Engineer Name Role Phone LOS ALONZO Primary Care Provider Assessment Encounter Date Assessment Date Assessment LastModified by Organization Details LastModified Time 06/30/2020 06/30/2020 64 yoM with multiple medical issues referred for urinary incontinence Not available 06/29/2020 22:43:37 07/25/2023 07/25/2023 67 yoM with multiple medical issues referred for urinary incontinence Not available 07/25/2023 18:05:38 Plan of Treatment Reminders Order Date Submit Date Provider Last Modified By Organization Details Last Modified Time Details Appointments None recorded. Lab None recorded. Referral None recorded. Procedures None recorded. Surgeries None recorded. Imaging None recorded. Medication Orders finasteride 5 mg tablet 2022 023 [facility], [address] [place], [address], 3 15:22:54 Patient TargetsNo targets recorded. Patient InstructionsNo instructions recorded. Reason for Referral None Reported. Results Created Date Observation Date Name Description Value Unit Range Abnormal Flag LastModifiedBy Organization Detail LastModifiedTime 07/03/20 20 06/30/2020 bladd er scan (PROC ) No observ ation record ed. Not Available 07/25/2023 18:04:43 07/05/20 20 06/30/2020 bladd er scan (PROC ) No observ ation record ed. Not Available 07/25/2023 18:04:43 Result Notes None recorded. Procedures Surgical History Date Name Laterality Status Provider Name and Address Organization Details Recorded Time 3 Bladder Scan completed Isabel Cash [facility] 07/25/2023 15:06:22 0 Flow Rate / Uroflow completed Jose Churchill MD [address] [place] [address],[address], [id number] [place] [address] Urolog 06/30/2020 14:56:15 0 Bladder Scan completed Jose Churchill MD [address] [place] [address],[facility] [address], [address], [facility] 06/30/2020 14:56:08 Imaging Results Imaging Date Name Status LastModified by Organiz ation Details LastModified Time 06/30/2020 bladder scan (PROC) completed Information not available 07/25/2023 18:04:43 06/30/2020 bladder scan (PROC) completed Information not available 07/25/2023 18:04:43 Procedure Notes None recorded. Medical Equipment None Reported. Allergies Allergen ID Allergen Name Allergen Category Reaction Reaction Severity Criticality Documentation Date Start Date Code Code System Note Provider Name and Address Organization Details Recorded Time 741194 Substance with sulfonami de structure and antibacte rial mechanism of action (substanc e) medicatio n Not available Not available Not available 06/30/2020 45893 8003 SNOMED Turner Leija [facility] 0 14:39:27 Medications Name Sig Start Date Stop Date Status Note LastModified by Organization Details LastModified Time atorvastati n 40 mg tablet TAKE 1 TABLET BY MOUTH ONCE DAILY active Not Available Not Available No t Available trazodone 50 mg tablet TAKE 1 TABLET BY MOUTH AT BEDTIME active Not Available Not Available No t Available hydrocodone 5 mg-acetamin ophen 325 mg tablet TAKE 1 TABLET BY MOUTH EVERY 6 HOURS NEEDED FOR PAIN 07/25 completed Not Available Not Available Not Available hydroxyzine HCl 50 mg tablet TAKE 1 TABLET BY MOUTH EVERY 4 HOURS NEEDED FOR ANXIETY OR DISCOMFOR T 07/25 completed Not Available Not Available Not Available disulfiram 250 mg tablet TAKE 2 TABLETS BY MOUTH ONCE DAILY active Not Available Not Available No t Available tamsulosin 0.4 mg capsule TAKE 2 CAPSULES BY MOUTH ONCE DAILY AFTER A MEAL active Not Available Not Available No t Available benzonatate 100 mg capsule TAKE 1 CAPSULE BY MOUTH THREE TIMES DAILY NEEDED FOR COUGH 07/25 completed Not Available Not Available Not Available cyanocobala min (vit B-12) 1,000 mcg/mL injection solution INJECT 1 ML SUBCUTANE OUSLY ONCE EVERY MONTH active Not Available Not Available No t Available ergocalcife rol (vitamin D2) 1,250 mcg (50,000 unit) capsule TAKE 1 CAPSULE BY MOUTH ONCE A WEEK active Not Available Not Available No t Available finasteride 5 mg tablet Take 1 tablet every day by oral route. active Not Available Not Available No t Available escitalopra m 20 mg tablet TAKE 3 TABLETS BY MOUTH ONCE DAILY active Not Available Not Available No t Available WhoSayllThe Sandpit Tuberculin Safety Syringe 1 mL 28 gauge x 1/2 USE DIRECTED active Not Available Not Available No t Available Paxlovid 150 mg-100 mg tablets in a dose pack (Renal Dose) TAKE 2 TABLETS TOGETHER (ONE 150 MG NIRMATREL VIR TABLETS AND ONE 100 MG RITONAVIR TABLET) BY MOUTH TWICE DAILY FOR 5 DAYS. 07/25 completed Not Available Not Available Not Available Vitals Date Recorded Body height Body mass index (BMI) Body weight Provider Name and Address Organization Details Last Updated DateTime 06/30/2020 177.8 cm 20.1 kg/m2 68891.[address] [facility] 06/30/2020 14:38:39 Date Recorded Body height Body mass index (BMI) Body weight Provider Name and Address Organization Details Last Updated DateTime 07/25/2023 180.34 cm 23.2 kg/m2 22839.[address] [facility] 07/25/2023 15:04:16 Social History Question Answer Notes LastModified by Organizat ion Details LastModified Time Tobacco Smoking Status Current Every Day Smoker Turner Leija [facility] 06/30/2020 14:40:38 What Is Your Level Of Alcohol Consumption? None Information not available 07/25/2023 What Is Your Level Of Caffeine Consumption? Occasional Information not available 07/25/2023 What Was The Date Of Your Most Recent Tobacco Screening? 07/25/2023 Information not available 07/25/2023 How Much Tobacco Do You Smoke? 0.5 PPD Information not available 06/30/2020 How Many Years Have You Smoked Tobacco? 25 Information not available 06/30/2020 Sex: Male Functional Status None recorded. Mental Status None recorded. Family History Relationship Description Onset Age of this Age Resolved Age Notes Father Family history of cancer Father Family history of Hypertension Medical History Condition Response Other N High Blood Pressure Y Kidney Stones N Lung Disease N Depression Y GERD/Acid Reflux N Diabetes N Sexually Transmitted Infection N Bleeding Disorder N Cancer N High Cholesterol N Heart Disease N Immunizations Vaccine Type Date Status Provider Name and Address Organization Details Recorded Time zoster recombinant 12/16/2019 completed Isabel harper [facility] 07/25/2023 15:03:35 zoster recombinant 10/17/2019 completed Isabel harper [facility] 07/25/2023 15:03:35 COVID-19, mRNA, LNP-S, PF, 100 mcg/0.5mL dose or 50 mcg/0.25mL dose 03/07/[address] [facility] 07/25/2023 15:03:35 COVID-19, mRNA, LNP-S, PF, 100 mcg/0.5mL dose or 50 mcg/0.25mL dose 09/05/2021 completed Isabel [facility]per [facility] 07/25/2023 15:03:35 COVID-19, mRNA, LNP-S, PF, 30 mcg/0.3 mL dose 01/01/[address] [facility] 07/25/2023 15:03:35 COVID-19, mRNA, LNP-S, PF, 30 mcg/0.3 mL dose 01/22/[address] [facility] 07/25/2023 15:03:35 pneumococcal polysaccharide PPV23 11/19/2021 completed Isabel [facility]per [facility] 07/25/2023 15:03:35 pneumococcal polysaccharide PPV23 08/23/2015 completed Isabel harper [facility] 07/25/2023 15:03:35 Tdap 12/09/2018 completed Isabel harper [facility] 07/25/2023 15:03:35 Tdap 03/12/2012 completed Isabel harper [facility] 07/25/2023 15:03:35 Novel [id number], all formulations 09/20/2009 completed Isabel harper [facility] 07/25/2023 15:03:35 Influenza, seasonal, injectable, preservative free 09/07/2012 completed Isabel harper [facility] 07/25/2023 15:03:35 Influenza, seasonal, injectable, preservative free 09/20/2009 completed Isabel harper [facility] 07/25/2023 15:03:35 Td (adult), 2 Lf tetanus toxoid, preservative free, adsorbed 11/19/2003 completed Isabel harper [facility] 07/25/2023 15:03:35 influenza, injectable, quadrivalent, preservative free 07/27/2020 completed Isabel harper [facility] 07/25/2023 15:03:35 influenza, injectable, quadrivalent, preservative free 08/07/2021 completed Isabel harper [facility] 07/25/2023 15:03:35 influenza, injectable, quadrivalent, preservative free 08/23/2015 completed Isable harper [facility] 07/25/2023 15:03:35 influenza, injectable, quadrivalent, preservative free 09/13/2019 completed Isabel harper [facility] 07/25/2023 15:03:35 influenza, injectable, quadrivalent, preservative free 10/10/2018 completed Isabel harper [facility] 07/25/2023 15:03:35 Past Encounters Encounter ID Performer Location Encounter Start Date Encounter Closed Date Diagnosis/Indication Diagnosis SNOMED-CT Code [id number] Turner Leija [facility] [address] [place] [id number] 06/30/2020 14:19:32 07/03/2020 03:34:19 Urinary incontinence [id number] Jose Churchill MD [facility] [address] [place] [id number] 07/25/2023 14:46:29 07/31/2023 12:17:11 Urinary incontinence [id number] Nocturia [id number] Health Concerns Section Related Observation LastModified by Organization Detai ls LastModified Time None Recorded Concern Status LastModified by Organization Details LastModified Time None Recorded Advance Directives Directive None Recorded Payers Encounter Date Sequence Insurance Name Policy Number Policy Rebolledo Covered Member ID Rebolledo Member ID Guarantor Name 07/25/2023 1 [place] [employer] [facility] Jed Alamo [id number] Jed Alamo 07/25/2023 2 [facility] [id number] Jed Alamo [id number] Jed Alamo 06/30/2020 1 [place] [employer] [facility] Jed Alamo [id number] Jed Alamo 06/30/2020 2 [facility] [id number] Jed Alamo [id number] Jed Alamo Notes Date Note Type Note Provider Name and Address Organization Details Recorded Time 06/30/2020 text/html HPI Notes: Mr. Alamo is a very pleasant 64yoM with a h/o HTN, HLD, ED, substance abuse, CVA, and recurrent MDD who is referred to me today by his PCP, Dr. Los Alonzo for evaluation of his urinary incontinence. Duration: 6 - 12 months Symptoms: frequency, urgency, nocturia and urge urinary incontinence Alleviating factors: none Exacerbating factors: lying down 04/04/2020: Reports that he has shown significant improvement with Flomax. From his baseline he states that his symptoms are about 80% improved. Very satisfied. He continues to have some episodes of incontinence although this seems to be mostly what if he goes too long between going to the restroom. He feels that his frequency has improved his urgency has improved and he is getting up fewer times during the night. No issues with bowel movements. He has tolerated the Flomax well and reports no adverse effects. 06/30/2020: Here for follow up BPH with lower urinary tract symptoms and erectile dysfunction. Reports that he continues to have an excellent response to Flomax. Fells as though he is in more control of his urination. Occasionally still has some incontinence but much less severe and less frequent. Overall happy with his current urinary pattern. Turner harper [facility] 07/03/2020 10:35:42 07/25/2023 text/html HPI Notes: Mr. Alamo is a very pleasant 67yoM with a h/o HTN, HLD, ED, substance abuse, CVA, and recurrent MDD who is referred to me today by his PCP, Dr. Los Alonzo for evaluation of his urinary incontinence. Duration: 6 - 12 months Symptoms: frequency, urgency, nocturia and urge urinary incontinence Alleviating factors: none Exacerbating factors: lying down 04/04/2020: Reports that he has shown significant improvement with Flomax. From his baseline he states that his symptoms are about 80% improved. Very satisfied. He continues to have some episodes of incontinence although this seems to be mostly what if he goes too long between going to the restroom. He feels that his frequency has improved his urgency has improved and he is getting up fewer times during the night. No issues with bowel movements. He has tolerated the Flomax well and reports no adverse effects. 06/30/2020: Here for follow up BPH with lower urinary tract symptoms and erectile dysfunction. Reports that he continues to have an excellent response to Flomax. Fells as though he is in more control of his urination. Occasionally still has some incontinence but much less severe and less frequent. Overall happy with his current urinary pattern. 07/25/2023: Here for follow up BPH with lower urinary tract symptoms and erectile dysfunction. Doing well on tamsulosin. Would liek to see a little more improvement. Jose Churchill MD [address], [place], [address], [facility] 07/25/2023 18:06:27
--- OUTSIDE RECORDS SUMMARY | 2024-03-04 03:50 | XMS_ITS | Encounter Summary ---
Author Name Unknown Organization [place] Address [address] [place] [address] Care Team Providers Care Park Worker Supervisor Name Role Phone Alton Alonzo MD Primary Care Provide r Nani SainzW Unavailable [phone] Alton Alonzo MD Unavailable [facility] Claudia [facility] Unavailable Alton Alonzo MD Unavailable Nathalie Tate MD Unavailable [phone] Nathalie Tate MD Unavailable [phone] Alton Alonzo MD Unavailable Nathalie Tate MD Unavailable [phone] Nathalie Tate MD Primary Care Provider [phone] Encounter Details Date Type Department Care Team (Late st Contact Info) Description 06/20/2011 MyC Medical Advice [facility] [address] [place] [address] Claudia Torres Insomnia, unspecified Social History Tobacco Use Types Packs/Day Years [...] encounter Miscellaneous Notes * Telephone Encounter - Carmen Miller - 06/20/2011 10:27 AM CDT Pending Prescriptions: Disp Refills zolpidem (AMBIEN) 10 MG tablet 30 tabl0 Sig: Take 1 tablet by mouth nightly as needed for sleep. Please send to pharm listed. Thanks Carmen Let me know if patient needs to be seen documented in this encounter Plan of Treatment Not on file documented as of this encounter Visit Diagnoses Diagnosis Insomnia, unspecified documented in this encounter Additional Health Concerns Infection Onset Date Last Indicated Resolved Time Rule Out COVID-12/09/2023 12/09/2023 12/09/2023 9:14 PM PAPER BOX MAKER documented as of this encounter Care Teams Park Worker Supervisor Relationship Specialty Start Date End Date Alton Alonzo MD [address] , [address] [address] PCP - General 03/14/09 12/08/23 Nathalie Tate MD [address] [place] [address] PCP - General Family Medicine 12/09/23 Nani Sainz LSW [employer] [facility] 10/15/1801/06 Alton Alonzo MD [address] [address] Assigned PCP 07/23/12 01/26/22 [facility] ([facility] ([place] 05/18/19 07/01/19 Alton Alonzo MD [address] [place] [address] Assigned PCP 02/03/22 08/16/22 Nathalie Tate MD [address] [place] [address] Assigned PCP 01/27/22 02/02/22 Nathalie Tate MD [address] [place] [address] Assigned PCP 08/17/22 12/27/22 Alton Alonzo MD [address] [place] [address], [place] [address] Assigned PCP 12/28/22 06/27/23 Nathalie Tate MD [address] [place] [address] Assigned PCP 06/28/23 documented as of this encounter
--- OUTSIDE RECORDS SUMMARY | 2024-03-04 03:50 | XMS_ITS | Clinical Summary ---
Author Name Unknown Organization [facility] Address [address] [place] [address] Care Team Providers Care Broadband Installer Name Role Phone Kory Delgado MD Primary Care Provider [phone] Source Comments You are receiving this document as you are listed as the primary care provider,follow-up provider, or the patient has been referred to you for consultation.This is in compliance with the Medicare and[facility] Cent[facility] EHR Incentive Program,which states Providers who transition their patient to another setting of careor provider of care or refers their patient to another provider of care shouldprovide summary care record for each transition of care or referral. [facility] Active Allergy Reactions Criticality Noted Date Comments Sulfa Antibiotics 10/14/2004 PN: LW Reaction: Rash, Generalized Medications Medication Sig Dispensed Refills Start Date End Date Status aspirin 81 MG tablet Take 81 mg by mouth daily. Active metoprolol succinate (TOPROL XL) 100 MG 24 hour release tablet Take 100 mg by mouth daily. Active traZODone (DESYREL) 100 MG tablet Take 0.5 Tablets by mouth at bedtime as needed for Sleep. 09/13/2018 Active atorvastatin (LIPITOR) 40 MG tablet Take 40 mg by mouth daily. 12/21/2020 Active disulfiram (ANTABUSE) 250 MG tablet Take 500 mg by mouth daily. 12/27/2020 Active Vitamin D, Ergocalciferol, 1.25 MG (13422 UT) CAPS Take 1 Capsule by mouth once every week. 01/22/2021 Activ e lisinopril (ZESTRIL) 10 MG tablet Take 10 mg by mouth daily. 11/02/2020 Active Specialty Vitamins Products (VITAMINS FOR HAIR) Take 1 Tablet by mouth daily. Active tamsulosin (FLOMAX) 0.4 MG CAPS capsule Take 0.4 mg by mouth two times a day. 01/24/2021 Active TRINTELLIX 20 MG tablet Take 20 mg by mouth daily. 12/28/2020 Active cyanocobalamin (UCGKQALH76) 1000 MCG/ML injection Inject 1 mL intramuscularly daily. 10/28/2020 Activ e Active Problems Problem Noted Date Diagnosed Date Substance induced mood disorder 09/10/2018 Alcohol use disorder, severe, dependence 018 Moderate episode of recurrent major depressive d isorder 09/10/2018 Myasthenia gravis without exacerbation 8 Overview: LW Modifier: ocular ; Myasthenia Gravis NOS Tobacco use disorder 03/17/2008 Overview: LW Modifier: 10/21 ppd LW Onset: 1973 ; Tobacco Abuse Hyperlipidemia 10/31/2004 Alcohol dependence in remission 10/25/2004 Overview: LW Modifier: quit 10/21 ; Alcohol Dependence Remission Essential hypertension 03/26/2003 Overview: Hypertension Migraine 03/26/2003 Overview: Migraine Without Aura Resolved Problems Problem Noted Date Diagnosed Date Resolved Date Anxiety state 10/25/2004 03/17/2008 Overview: LW Onset: ; Anxiety NOS Immunizations Name Administration Dates Next Due Influenza IIV4 (Quadrivalent ) 0.5mL (83664) 09/10/2018(Deferred: Patient Refused) Td 11/19/2003 Social History Tobacco Use Types Packs/Day Years Used Date Smoking Tobacco: Every Day Smokeless Tobacco: Never Alcohol Use Standard Drinks/Week Comments Not Currently 0 (1 standard drink = 0.6 oz pur e alcohol) Sex and Gender Information Value Date Recorded Sex Assigned at Not on file Gender Identity Not on file Sexual Orientation Not on file Last Filed Vital Signs Vital Sign Reading Time Taken Comments Blood Pressure 115/62 01/31/2021 4:01 PM CDT Pulse 64 01/31/2021 4:01 PM CDT Temperature 36.7 ??C (98 ??F) 09/13/2018 7:00 AM CLERICAL ASSISTANT Respiratory Rate 16 09/13/2018 7:00 AM CLERICAL ASSISTANT Oxygen Saturation 97% 09/13/2018 7:00 AM CLERICAL ASSISTANT Inhaled Oxygen Concentration - - Weight 68.4 kg (150 lb 12.8 oz) 01/31/2021 4:01 PM CDT Height 175.3 cm (5' 9) 01/31/2021 4:01 PM CDT Body Mass Index 22.27 01/31/2021 4:01 PM CDT Plan of Treatment Health Maintenance Due Date Last Done Comments Hep C Screening (Preventive Services) 1955 Medicare Annual Wellness Visit 1955 FIT Colon Cancer Screening 2000 PSA Screening Discussion 05/06/2008 05/06/2007 Cholesterol 09/24/2012 09/24/2007, 04/19, 05/06/2007, Additional history exists Pneumococcal 65+ Yrs (2 - PCV) 08/23/2016 08/23/2015 COVID-19 Vaccine (3 - season) 2023 01/22/2021, 01/01/2021 Influenza (Season Ended) 2024 020, 09/13/2019, 10/10/2018, Additional history exists DTaP/Tdap/Td (3 - Tdap) 12/09/2028 12/09/19 19, 03/12/2012, 11/19/2003 Zoster/Shingles Completed 12/16/2019, 10/17/2019 HepA Aged Out No longer eligi ble based on patient's age to complete this topic HepB Aged Out No longer eligi ble based on patient's age to complete this topic Hib Aged Out No longer eligi ble based on patient's age to complete this topic IPV (Polio) Aged Out No longer eligi ble based on patient's age to complete this topic MCV4 Aged Out No longer eligi ble based on patient's age to complete this topic Procedures Procedure Name Priority Date/Time Associated Diagnosis Comments LIPID PANEL & DIRECT LDL (IF NEEDED) Routine 09/24/2007 9:05 AM CLERICAL ASSISTANT PROSTATIC SPECIFIC ANTIGEN (DIAGNOSTIC F/U) Routine 05/06/2007 10:25 AM CDT from Last 3 Months or Most Recently Relevant to Health Maintenance Results * (ABNORMAL) Lipid Panel and Direct LDL(If Needed) (09/24/2007 9:05 AM CLERICAL ASSISTANT) Hours Fasting 12.0 Hours HP CONVERSION Cholesterol/HDL Ratio Screen 2.9 No normal range HP CONVERSION Cholesterol 219(H) <200 mg/dL HP CONVERSION HDL Cholesterol 76 >40 mg/dL HP CONVERSION Triglycerides 137 0 - 149 mg/dL HP CONVERSION LDL Calculated 116 0 - 130 mg/dL HP CONVERSION Comment: 09/24/2007 9:05 AM CLERICAL ASSISTANT Harvey Alonzo MD LAB_1 Performing Organization Address City[facility] Co de Phone Number HP CONVERSION * Prostatic Specific Antigen (F/U) (05/06/2007 10:25 AM CDT) Prostate Specific Antigen 0.3 0.0 - 4.0 ng/mL HP CONVERSION 05/06/2007 10:2 5 AM CDT Harvey Alonzo MD LAB_1 HP CONVERSION from Last 3 Months or Most Recently Relevant to Health Maintenance Advance Directives * Full Code (Latest Code Status on File) Date Activated Date Inactivated Comments 09/10/2018 12:03 AM 09/13/2018 2:15 PM Care Teams Broadband Installer Relationship Specialty [place] [address] [address] [place] [address] PCP - General Family Practice 02/08/22
--- OUTSIDE RECORDS SUMMARY | 2024-03-04 03:50 | XMS_ITS | Continuity of Care Document ---
Author Name Unknown Organization [facility] Address [address] [address] [place] [address] Phone Care Team Providers Care Flexible Shaft Winder Name Role Phone No Information Unavailable Unavailable Allergies, Adverse Reactions, Alerts Substance Reaction Status Criticality Sulfa (Sulfonamide Antibiotics) rash Active No Information Medications Medication Instructions Dosage Effective Dates (start - stop) Status Comments Aspirin Low Dose 81 mg tablet,delayed release take 1 tablet by oral route every day 81 MG - Active METOPROLOL SUCCINATE (unknown strength) take 1 tablet by ORAL route every day Not Available - Active DISULFIRAM (unknown strength) take 2 tablet by oral route every day Not Available - Active TRINTELLIX (unknown strength) take 1 tablet by oral route every day at the same time each day Not Available - Active LEXAPRO (unknown strength) take 1 tablet by oral route every day Not Available - Active LISINOPRIL (unknown strength) take 1 tablet by oral route every day Not Available - Active TRAZODONE HCL (unknown strength) take 100 Milligram by Oral route once Not Available - Active tamsulosin 0.4 mg capsule take 1 capsule by ORAL route 2 times every day 1/2 hour following the same meal each day 0.4 MG - Active ATORVASTATIN CALCIUM (unknown strength) take 1 tablet by oral route every day Not Available - Active HYDROXYZINE HCL (unknown strength) take 1 tablet by oral route every day as needed Not Available - Active fluoxetine 20 mg tablet take 1 tablet by oral route every day in the morning 20 MG - Active trazodone 50 mg tablet take 1 tablet by oral route every day as needed - Active hydroxyzine HCl 25 mg tablet take 1 tablet by oral route every 6 hours as needed 25 MG - Active ATORVASTATIN CALCIUM (unknown strength) take 1 tablet by oral route every day Not Available - Active Procedures Procedure Date Ugi Endo; W/bx 1/mx Level Iv-surg Path Gross/micro 21 Offic Cons New/estab Mod Routine Serum Collection Hepatitis A Antibody; Igg & Ig [address]; Hg & Platelet Ct Autom 16 Bilirubin; Direct Iron Iron Binding Capacity Comp Metabolic Panel Ferritin Ag-immunoassay; Hep B Surface 6 Hepatitis C Antibody; Hepatitis B Surface Antibody Hep B Core Antibody Colonoscopy Flex; W/bx 1/mx Level Iv-surg Path Gross/micro 14 Advance Directives Directive Yes / No Effective Date File Name No Information Encounters Encounter Description Practice Location Reason(s) For Visit Diagnoses Date Provider Providers Copied on Encounter [facility], [address] [address], [place], [id number], [place] tel:[phone] No Information No Information Referring Provider: Nathalie Tate MD E, [address], [place], [address]. tel:[phone] [facility], [address] [address], [place], [id number], [place] tel:[phone] Aleksandra [facility] Superficial gastritis without hemorrhage, unspecified chronicityChroni c superficial gastritis without bleedingNausea with vomiting, unspecifiedDisea se of stomach and duodenum, unspecifiedDisea se of stomach and duodenum, unspecified Dustin Forrest. [address] [facility], [place], [place], [id number], [place]. tel:[phone] Referring Provider: Alton duong, [address], [place], [address]. tel:[phone] [facility], [address] [address], [place], [place], [id number], [place] tel:[phone] [facility] No Information 1 Doyle Urena. [address] [facility], [place], [place], [id number], [place]. tel:[phone] Offic Cons New/estab Mod [facility], [address] [address], [facility], [place], [id number], [place] tel:[phone] [facility] GI Symptoms or Concerns (chief complaint) Fatty liverAbnormal LFTsAlcoholism in recovery Brian Kohler. [address] [facility], [place], [place], [id number], [place]. tel:[phone] Referring Provider: Alton duong, [address], [place], [address]. tel:[phone] [facility], [address] [address], [place], [place], [id number], [place] tel:[phone] [facility] Colon polypColon Cancer ScreeningBenign Neoplasm Colon No Information Referring Provider: Altno duong, [address], [place], [address]. tel:[phone] Family History Family Member Type Diagnosis Age At Onset Daughter Problem (finding) GERD Mother Problem (finding) Colon polyps Immunizations Vaccine Date Status Comments SARS-COV-2 (COVID-19) vaccin e, mRNA, spike protein, LNP, preservative free, 30 mcg/0.3mL dose administered Note: [facility] bi-direct ional interface ; Source: Other Registry SARS-COV-2 (COVID-19) vaccin e, mRNA, spike protein, LNP, preservative free, 30 mcg/0.3mL dose administered Note: [facility] bi-direct ional interface ; Source: Other Registry Afluria Qd administered Note: [facility] bi-directional interface ; Source: Other Registry zoster vaccine recombinant administered N ote: [facility] bi-directional interface ; Source: Other Registry zoster vaccine recombinant administered N ote: [facility] bi-directional interface ; Source: Other Registry Afluria Qd administered Note: [facility] bi-directional interface ; Source: Other Registry tetanus toxoid, reduced diphtheria toxoid, and acellular pertussis vaccine, adsorbed administered Note: [facility] bi-direct ional interface ; Source: Other Registry Afluria Qd administered Note: [facility] bi-directional interface ; Source: Other Registry Pneumovax 23 administered Note: [facility] bi-d irectional interface ; Source: Other Registry Afluria Qd administered Note: [facility] bi-directional interface ; Source: Other Registry Influenza virus vaccine, injectable, quadrivalent, split virus, preservative free, 3 years or older Fluarix Quad administered Note: Invalid docume nted admin date was . ; Source: Other Provider Influenza, seasonal, injectable, preservative free administered Note: [facility] bi-directional interface ; Source: Other Registry tetanus toxoid, reduced diphtheria toxoid, and acellular pertussis vaccine, adsorbed administered Note: [facility] bi-direct ional interface ; Source: Other Registry Influenza, seasonal, injectable, preservative free administered Note: [facility] bi-directional interface ; Source: Other Registry Novel [id number], all formulations administered Note: [facility] bi-direct ional interface ; Source: Other Registry tetanus and diphtheria toxoi ds, adsorbed, preservative free, for adult use (2 Lf of tetanus toxoid and 2 Lf of diphtheria toxoid) administered Note: [facility] bi-direct ional interface ; Source: Other Registry Payers Payer name Insurance type Covered republican ID Authoriza tion(s) No Information Social History Type Description Quantity Date Captured Comments Sex Male Smoking Status No Information Chief Complaint And Reason For Visit No Information Reason For Referral Reason For Referral No Information Plan Of Treatment Date Type Action Status Referral Ordered: follow-up visit 6 Months Appointment date/timeframe: 6 Months ordered Future Order: Lab Order Antimito chondrial Ab (AMA), Qn ([id number]), Body Site: Left Arm, Ordered on: Ordered History Of Present Illness Encounter Date Complaint History Of Prese nt Illness GI Symptoms or Concerns [age]year[age]old male with history of alcoholism, presents for further evaluation of abnormal liver function tests and evidence of fatty liver on CT. He reports that he has been alcoholic for his entire life. He went to treatment in 2002 and has been mostly sober since then with the exception of a few relapses when his parents . At his peak of drinking, he would have one liter of vodka per day. Last fall, he was admitted for pancreatitis thought to be due to alcohol. This was after a relapse after a parent's . He has no history of gallstones. His liver function tests were elevated at the time, but improved. He denies any history of bleeding, ascites, or confusion. He reports that he was mildly jaundiced at the time of his hospitalization. He does have some history of lower extremity edema and had an echocardiogram done which was normal.He denies any risk factors for viral hepatitis. There is no family history of underlying liver disease. He currently feels well and has no complaints.His most recent outside labs show alkaline phosphatase of 427, total bilirubin of 2.3, AST 165, and ALT of 78. This was done on August 21, 2015. CBC showed hemoglobin of 8.9 which has been stable, platelets of 145, WBC was 7.6, and MCV was 104. INR in July was 0.95. Functional Status Date Functional Assessmen t No Information Instructions Date Instruction Additional Infor key Gastritis Related to Super ficial gastritis without hemorrhage, unspecified chronicity Assessments Type Assessment Date No Information Patient Care Teams Name Effective Dates (start - stop) Status Members No Information
--- OUTSIDE RECORDS SUMMARY | 2024-03-04 03:50 | XMS_ITS | Clinical Summary ---
Author Name Unknown Organization [facility] Address [place], [place] [address] Care Team Providers Care Hand Silvering Supervisor Name Role Phone Alton Alonzo MD Primary Care Provide r Allergies Active Allergy Reactions Criticality Noted Date Comments Sulfa (Sulfonamide Antibiotics) Rash 09/20 Medications Medication Sig Dispensed Refills Start Date End Date Status multivitamin (MVI) tablet Take 1 tablet by mouth once daily. Active mirtazapine (REMERON) 30 mg tabletIndications:Cerebr ovascular accident (CVA) due to thrombosis of right posterior cerebral artery (HC) Take 1 tablet by mouth at bedtime. 30 tablet 8 Active acetaminophen (TYLENOL) 325 mg tabletIndications:Cerebr ovascular accident (CVA) due to thrombosis of right posterior cerebral artery (HC) Take 2 tablets by mouth every 4 hours if needed. Max acetaminophen dose: 4000mg in 24 hrs. 0 8 Active disulfiram (ANTABUSE) 250 mg tabletIndications:Alcoho l abuse Take 1 tablet by mouth every morning. 30 tablet 8 Active atorvastatin (LIPITOR) 40 mg tabletIndications:H/O hypercholesterolemia Take 1 tablet by mouth at bedtime. 30 tablet 8 Active polyethylene glycol (MIRALAX; GLYCOLAX) 17 g powder for solutionIndications:Cere brovascular accident (CVA) due to thrombosis of right posterior cerebral artery (HC) Take 17 g by mouth once daily if needed. 0 8 Active sennosides (SENNA) 8.6 mg tabletIndications:Cerebr ovascular accident (CVA) due to thrombosis of right posterior cerebral artery (HC) Take 1-2 tablets by mouth 2 times daily if needed. 0 8 Active aspirin (ECOTRIN) 81 mg enteric coated tabletIndications:Cerebr ovascular accident (CVA) due to thrombosis of right posterior cerebral artery (HC) Take 1 tablet by mouth once daily with a meal. 30 tablet 8 Active traZODone (DESYREL) 50 mg tabletIndications:Cerebr ovascular accident (CVA) due to thrombosis of right posterior cerebral artery (HC) Take 2 tablets by mouth at bedtime. 60 tablet 8 Active nicotine 21 mg/24 hr (NICODERM; HABITROL) 21 mg/24 hr patchIndications:Tobacco abuse Apply 1 Patch on dry, clean, hairless skin once daily. 30 Patch 8 Active nicotine (NICOTROL) 10 mg inhalerIndications:Tobac co abuse Inhale 10 mg by mouth every hour while awake as needed. up to 5 cartridges/day 150 Each 8 Active thiamine mononitrate, vit B1, (VITAMIN B1) 100 mg tabletIndications:Alcoho l abuse Take 1 tablet by mouth once daily. 30 tablet 8 Active metoprolol succinate (TOPROL XL) 100 mg Sustained-Release tabletIndications:Essent ial hypertension Take 1 tablet by mouth once daily. 30 tablet 9 Active lisinopril (PRINIVIL; ZESTRIL) 10 mg tabletIndications:Essent ial hypertension Take 1 tablet by mouth once daily. 30 tablet 9 Active tamsulosin (FLOMAX) 0.4 mg capsuleIndications:Benig n prostatic hyperplasia with weak urinary stream Take 2 Capsules (0.8 mg) by mouth once daily after a meal. 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 Left hemiparesis 10/08/2018 Oropharyngeal dysphagia 10/08/2018 Impairment of balance 10/08/2018 Cognitive impairment 10/08/2018 Immunizations Name Administration Dates Next Due Influenza A (H1N1), Inactivated 09/20/2009 Influenza, IIV3 (Age 6-35 mos) 09/07/2012,2008 Influenza, IIV4 10/10/2018,08/23/2015 Pneumococcal Poly,23-Valent (Pneumovax) 08/23/20 15 Td (Age >=7 Years) 11/19/2003 Tdap 03/12/2012 Family History Medical History Relation Name Comments COPD Father Stroke Mother Cancer Other Relation Name Status Comments Father Mother Other Social History Tobacco Use Types Packs/Day Years Used Date Smoking Tobacco: Every Day Cigarettes 0.5 40 Smokeless Tobacco: Never Alcohol Use Standard Drinks/Week Comments No 0 (1 standard drink = 0.6 oz pur e alcohol) sober x 3 weeks Sex and Gender Information Value Date Recorded Sex Assigned at Not on file Gender Identity Not on file Sexual Orientation Not on file Obstetrics History Last Filed Vital Signs Vital Sign Reading Time Taken Comments Blood Pressure 118/70 11/06/2018 2:11 PM CLEAN ROOM TECHNICIAN Pulse 75 11/06/2018 2:11 PM CLEAN ROOM TECHNICIAN Temperature 36.4 ??C (97.6 ??F) 11/06/2018 2:11 PM CS T Respiratory Rate 15 11/06/2018 2:11 PM CLEAN ROOM TECHNICIAN Oxygen Saturation 99% 11/06/2018 2:11 PM CLEAN ROOM TECHNICIAN Inhaled Oxygen Concentration - - Weight 73.8 kg (162 lb 9.6 oz) 10/18/2018 7:00 A M CLEAN ROOM TECHNICIAN Height 177.8 cm (5' 10) 10/08/2018 2:28 PM CLEAN ROOM TECHNICIAN Body Mass Index 23.33 10/08/2018 2:28 PM CLEAN ROOM TECHNICIAN Plan of Treatment Health Maintenance Due Date Last Done Comments Depression screening for age 12+ 1968 BMI (ht and wt on same day) for age 18+ 1974 Hepatitis C screening for age 18-79 1974 Colonoscopy through age 75 2001 Lipids for age 45-75 2001 Zoster (shingles) series for age 50+ (1 of 2) 2006 Pneumococcal series for age 65+ (2 of 2 - PCV) 2021 08/23/2015 Tetanus booster 03/12/2022 03/12/2012, 11/19/2003 COVID-19 vaccine series ( season) 2023 01/22/2021, 01/01/2021 Influenza for age 65+ 06/20/2024 10/10/2018 , 08/23/2015, 09/20/2009 Tdap Completed 03/12/2012 Advance Directives * Full Code (Latest Code Status on File) Date Activated Date Inactivated Comments 10/08/2018 2:34 PM 10/19/2018 1:08 PM Question Answer Comments Code Status Discussion: Not DiscussedPer Existin g Order * Full Code Date Activated Date Inactivated Comments 10/08/2018 1:54 PM 10/08/2018 2:33 PM Question Answer Comments Code Status Discussion: Not Discussed Care Teams Hand Silvering Supervisor Relationship Specialty Start Date End Date Alton Alonzo MD PCP - General Family Practice 10/08/18
== END 2024-02-28 11:48 | disposition home or self-care (01) ==
LOC: AMB 03-04 03:43
PROVIDERS: Visit Provider Family Medicine
DX: R41.82 Altered mental status, unspecified (principal); R53.1 Weakness; I95.9 Hypotension, unspecified
CPT/HCPCS: A0425; A0427

== ENCOUNTER 2024-06-13 17:08 | Outpatient (CLI) | payer MEDICARE, BC, SELFPAY ==
--- OUTSIDE RECORDS SUMMARY | 2024-06-16 04:51 | XMS_ITS | Clinical Summary ---
Author Organization [facility] Address [address] [place] [address] Care Team Providers Care Senior Systems Analyst Name Role Phone Nathalie Tate MD Unavailable [phone] Nathalie Tate MD Primary Care Provider [phone] Ip, Akash Escobar MD Unavailable [phone] Ip, Akash Escobar MD Unavailable [phone] Allergies Active Allergy Reactions Criticality Noted Date Comments Donepezil Diarrhea Medium 12/08/2023 Hospitalized for diarrhea/dehydration Sulfa Antibiotics Rash Low 03/16/2009 Medications Medication Sig Dispensed Refills Start Date End Date Status Multiple Vitamins-Iron (TAB-A-CATRACHO/IRON ) TABSIndications: Alcoholism (H) Take 1 capsule by mouth daily 100 tablet 3 06/03/2019 Suspended Additional Information tamsulosin (FLOMAX) 0.4 MG capsule Take 0.8 mg by mouth every evening 03/17/2020 Suspended thiamine (B-1) 100 MG tablet Take 100 mg by mouth every evening Suspended escitalopram (LEXAPRO) 20 MG tablet Take 60 mg by mouth every evening 01/31/2022 Suspended cyanocobalamin (CYANOCOBALAMIN) 1000 MCG/ML injection Inject 1 mL into the muscle every 30 days Suspended aspirin 81 MG EC tablet Take 81 mg by mouth every morning 4 Discontinued phenylephrine (LEATHA-SYNEPHRINE) 1 % nasal spray [place] 1 drop into both nostrils daily as needed for congestion Suspended disulfiram (ANTABUSE) 250 MG tabletIndication s:Alcoholism (H) Take 1 tablet (250 mg) by mouth daily 90 tablet 12/31/2023 Suspended Additional Information atorvastatin (LIPITOR) 80 MG tabletIndication s:Cerebrovascula r accident (CVA), unspecified mechanism (H),Alcoholism (H) Take 1 tablet (80 mg) by mouth every evening 90 tablet 12/31/2023 Suspended Additional Information donepezil (ARICEPT) 5 MG tablet Take 1 tablet (5 mg) by mouth at bedtime 03/11/2024 4 Discontinued melatonin 3 MG tabletIndication s:Insomnia, unspecified type Take 1 tablet (3 mg) by mouth nightly as needed for sleep 03/11/2024 Suspended Additional Information midodrine (PROAMATINE) 2.5 MG tabletIndication s:Orthostatic hypotension,Hypo tension, unspecified hypotension type Take 1 tablet (2.5 mg) by mouth 2 times daily Hold if SBP<130. Do not take prior to sleeping 03/11/2024 Suspended Additional Information aspirin 81 MG EC tablet Take 1 tablet (81 mg) by mouth every morning. Hold until follow up with PCP after hospital stay 06/11/2024 Suspended cefdinir (OMNICEF) 300 MG capsuleIndicatio ns:Sepsis due to urinary tract infection (H) Take 1 capsule (300 mg) by mouth 2 times daily for 11 days. Do not start before June 12, 2024. 22 capsule 06/12/2024 4 Suspended Additional Information donepezil (ARICEPT) 5 MG tablet Take 2 tablets (10 mg) by mouth at bedtime. 06/11/2024 Suspended Active Problems Problem Noted Date Diagnosed Date Pyelonephritis, acute 06/13/2024 Diarrhea, unspecified type 06/13/2024 UTI (urinary tract infection) 06/09/2024 Hypomagnesemia 06/09/2024 SILVANO (acute kidney injury) (H24) 06/09/2024 Sepsis due to urinary tract infection 06/09/2024 Left ureteral stone 06/09/2024 Orthostatic hypotension 02/28/2024 Near syncope 02/28/2024 Stroke [...] updated by automated process. Provider to review Essential hypertension, benign 03/16/2009 Mixed hyperlipidemia 03/16/2009 [...] demographics in clinical tab. Added by Venita Chan [facility] 09/07/2012 04/05/2024 Overview: State Tier Level: Tier 1 Status: n/a Data Examination Clerk: n/a See Letters for [facility] Care Plan Backache 02/14/2012 03/06/2012 Overview: Problem list name updated by automated process. Provider to review HTN (hypertension), benign 0 03/16/2009 Hyperlipidemia 03/16/2009 Myasthenia gravis 10/02/2015 Overview: neurology, Dr. Martínez Alcohol abuse, in remission 04/05/2015 Overview: AA weekly Encounters Date Type Department Care Team Description 06/14/2024 Telephone [facility] [address] [place] [address] [address] [place] [address] Nathalie Tate MD Outreach 06/13/2024 6:01 PM CDT - Present Hospital Encounter [facility] 5 Medical Surgical [address] [place] [address] Harvey Salinas MD Wacholz, Diane Reynoso, Abimael Taylor DO Loecken, MD Charity Warner Karl R, MD Pyelonephritis, acute; Syncope, unspecified syncope type; Diarrhea, unspecified type 06/13/2024 Travel 06/10/2024 Orders Only [facility] [address] [place] [phone] Kory Mcclure MD Ureteral stone (Primary Dx) 06/09/2024 6:30 AM CDT Anesthesia Event [facility] PeriOp Services [address] [place] [address] Lita Hensley MD Birch, Tex Beverly MD 06/09/2024 6:30 AM CDT - 06/09/2024 7:15 AM CDT Surgery [facility] [address] [place] [address] Kory Mcclure MD Cystoscopy, right retrograde pyelogram, interpretation of fluoroscopic images. Right ureteral stent placement 06/08/2024 7:55 PM CDT - 06/12/2024 4:09 PM CDT Hospital Encounter [facility] Observation Dept [address] [place] [address] Teofilo Cody MD Kriz, DO Sp Bonilla Lauren T, MD Sepsis due to urinary tract infection (H); Left ureteral stone; SILVANO (acute kidney injury) (H24); Hypomagnesemia Discharge Disposition: Home or Self Care 06/08/2024 Travel 04/09/2024 Telephone [facility] [address] [place] [phone] Nathalie Tate MD Home Care/Hospice 04/02/2024 3:15 PM CDT Office Visit [facility] [address] [place] [phone] Nathalie Tate MD Ip, Akash Escobar MD Labile blood pressure; Other specified hypotension 04/02/2024 Travel 03/24/2024 Telephone [facility] [address] [place] [phone] Nathalie Tate MD Home Care/Hospice from Last 3 Months Immunizations Name Administration [...] hx of Diabetes No family hx of Lamont Disease No family hx of Intellectual Disability [...] Used Date Smoking Tobacco: Former Cigarettes 0.5 54.7 S tarted: 10/20/1969 Other Passive Smoke Exposure: Past Smokeless Tobacco: Never Tobacco Cessation:Counseling Given: Not Answered Comments:Recently stopped 12/09/23 Alcohol Use Standard Drinks/Week Comments No 0 (1 standard drink = 0.6 oz pure alcohol) 100ml or more daily; recent relapse 08/18/15 PHQ-2 Answer Date Recorded PHQ-2 Score 1 08/07/2022 Adolescent Education Answer Date Record ed Getting School Help Needed Not on file 07/21 Food Insecurity Answer Date Recorded Within the past 12 months, d id you worry that your food would run out before you got money to buy more? No 06/14/2024 Within the past 12 months, d id the food you bought just not last and you didn? t have money to get more? No 06/14/2024 Housing Stability Answer Date Recorded Do you have housing? (Housin g is defined as stable permanent housing and does not include staying ouside in a car, in a tent, in an abandoned building, in an overnight custodial, or couch-surfing.) Yes 06/14/2024 Are you worried about losing your housing? No 06/14/2024 Financial Resource Strain Answer Date R ecorded Within the past 12 months, h ave you or your family members you live with been unable to get utilities (heat, electricity) when it was really needed? No 06/14/2024 Transportation Needs Answer Date Record ed Within the past 12 months, h as lack of transportation kept you from medical appointments, getting your medicines, non-medical meetings or appointments, work, or from getting things that you need? No 06/14/2024 Interpersonal Safety Answer Date Record ed Do you feel physically and e motionally safe where you currently live? Yes 06/14/2024 Within the past 12 months, h ave you been hit, slapped, kicked or otherwise physically hurt by someone? No 06/14/2024 Within the past 12 months, h ave you been humiliated or emotionally abused in other ways by your partner or ex-partner? No 06/14/2024 Sex and Gender Information Value Date Recorded Sex Assigned at Not on file Gender Identity Not on file Sexual Orientation Not on file Last Filed Vital Signs Vital Sign Reading Time Taken Comments Blood Pressure 138/59 06/16/2024 4:05 AM CDT Pulse 72 06/16/2024 4:05 AM CDT Temperature 37.1 ??C (98.7 ??F) 06/16/2024 4:05 AM CD T Respiratory Rate 16 06/16/2024 4:05 AM CDT Oxygen Saturation 93% 06/16/2024 12:18 AM CDT Inhaled Oxygen Concentration - - Weight 72 kg (158 lb 11.2 oz) 06/14/2024 12:10 A M CDT Height 180.3 cm (5' 11) 06/14/2024 12:10 AM CDT Body Mass Index 22.13 06/14/2024 12:10 AM CDT Plan of Treatment Upcoming Encounters Date Type Department Care Team (Late st Contact Info) Description 06/29/2024 2:45 PM CDT Office Visit [facility] [address] [place] [address] Ip, Akash Escoabr MD [address] [place], [place] [phone] Scheduled Procedures Name Priority Associated Diagnoses Date/Ti me CYSTOURETEROSCOPY, WITH LITH OTRIPSY USING LASER AND URETERAL STENT INSERTION Ureteral stone Health Maintenance Due Date Last Done Comments ANNUAL REVIEW OF HM ORDERS 1955 CT COLONOGRAPHY 1955 DEPRESSION ACTION PLAN 1956 FLEX SIG 1955 sDNA (Cologuard) 1955 HEPATITIS A IMMUNIZATION (1 of 2 - Risk 2-dose series) 1975 RSV VACCINE ( & 60+) (1 - 1-dose 60+ series) 2016 FIT 01/20/2023 01/20/2022 PHQ-9 02/05/2023 08/07/2022, 04/2 04/2021, 09/13/2019, Additional history exists COLONOSCOPY 05/09/2024 05/09/2014 COLORECTAL CANCER SCREENING 05/09/2024 INFLUENZA VACCINE (#1) 2024 , 07/27/2020, 09/13/2019, Additional history exists MEDICARE ANNUAL WELLNESS VISIT 06/20/2024 06/20/2023, 05/07/2018 MICROALBUMIN 06/20/2024 06/20/2023 Pneumococcal Vaccine: 65+ Years (2 of 2 - PCV) 06/20/2024 11/19/2021, 08/23/2015 Postponed from 11/19/2022 (Patient Declined) LUNG CANCER SCREENING 08/05/2024 08/05/2023 , 02/06/2017, 08/19/2015 FALL RISK ASSESSMENT 12/16/2024 12/16/2023, 08/07/2022, 12/09/2018, Additional history exists LIPID 12/23/2024 12/24/2023, 09/0 10/2022, 08/07/2022, Additional history exists BMP 06/15/2025 06/15/2024, 082 03/2024, 06/13/2024, Additional history exists HEMOGLOBIN 06/15/2025 06/15/2024, 08/2 03/2024, 06/13/2024, Additional history exists GLUCOSE 06/15/2027 06/15/2024, 082 04/2024, 06/14/2024, Additional history exists DTAP/TDAP/TD IMMUNIZATION (3 - Td or Tdap) 12/09/2028 12/09/2018, 03/12/2012, 10/20/2006, Additional history exists ADVANCE CARE PLANNING 12/16/2028 12/16/2023 , 10/26/2018, 10/26/2018, Additional history exists COVID-19 Vaccine ( season) 2028 03/07/2022, 09/05/2021, 01/22/2021, Additional history exists Postponed from 06/20/2023 (Not Able to Schedule At This Time) ZOSTER IMMUNIZATION Completed 12/16/2019, 9 HEPATITIS C SCREENING Completed 01/20/2022 , 01/19/2022, 10/31/2015 AORTIC ANEURYSM SCREENING (SYSTEM ASSIGNED) Completed 06/13/2024, 06/08/2024, 12/09/2023, Additional history exists URINALYSIS Completed 06/13/2024, 05/21, 12/09/2023, Additional history exists HPV IMMUNIZATION Aged Out [...] Transportation General On track( 019 3:46 PM SMOKE EATER) Yes Nani Sainz LSW Note: Goal [...] Patient expressed understanding of goal: caregiver understands. Medical Devices Implanted Type Area Automobile Wrecker Device Identifier Shelf Expiration Date Model / Serial / Lot Stent Ureteral Polaris Ultra [id number] - [id number] Implanted:Qty : 1 on 06/09/2024 by Kory Mcclure MD at [facility] Stent Right: Urethra [employer] [id number] 12/03/2026 [id number] / / [id number] Procedures The patient is currently admitted. The information in this section might not be complete until the patient is discharged. Procedure Name Priority Date/Time Associated Diagnosis Comments POTASSIUM Timed 06/16/2024 12:48 AM CDT MAGNESIUM Routine 06/15/2024 8:35 PM CDT GLUCOSE BY METER Routine 06/15/2024 8:22 PM CDT CBC WITH PLATELETS Routine 06/15/2024 7: 24 AM CDT BASIC METABOLIC PANEL Routine 06/15/2024 7:24 AM CDT CBC WITH PLATELETS Routine 06/14/2024 6: 47 AM CDT BASIC METABOLIC PANEL Routine 06/14/2024 6:[address] ABDOMEN PELVIS W CONTRAST STAT 06/13/2024 9:19 PM CDT URINE CULTURE STAT 06/13/2024 7:16 PM CDT ROUTINE UA WITH MICROSCOPIC REFLEX TO CULTURE STAT 06/13/2024 7:[address] HEAD W/O CONTRAST STAT 06/13/2024 7:00 PM CDT CBC WITH PLATELETS & DIFFERENTIAL STAT 06/13/2024 6:32 PM CDT EXTRA RED TOP TUBE STAT 06/13/2024 6: 32 PM CDT EXTRA BLUE TOP TUBE STAT 06/13/2024 6 :32 PM CDT CBC WITH PLATELETS AND DIFFERENTIAL STAT 06/13/2024 6:32 PM CDT EXTRA TUBE STAT 06/13/2024 6:32 PM CDT MAGNESIUM STAT 06/13/2024 6:32 PM CDT COMPREHENSIVE METABOLIC PANEL STAT 06/13/2024 6:32 PM CDT ISTAT GASES LACTATE VENOUS POCT STAT 06/13/2024 6:31 PM CDT EKG 12-LEAD, TRACING ONLY STAT 06/13/2024 6:08 PM CDT MAGNESIUM Routine 06/12/2024 8:38 AM CDT BASIC METABOLIC PANEL Routine 06/12/2024 8:38 AM CDT CBC WITH PLATELETS Routine 06/12/2024 8: 38 AM CDT BLOOD CULTURE STAT 06/11/2024 7:08 PM CDT GLUCOSE BY METER Routine 06/11/2024 5:53 PM CDT MAGNESIUM Routine 06/11/2024 5:47 AM CDT BASIC METABOLIC PANEL Routine 06/11/2024 5:47 AM CDT CBC WITH PLATELETS Routine 06/11/2024 5: 47 AM CDT ENTERIC BACTERIA AND VIRUS PANEL BY PCR STAT 06/10/2024 8:41 AM CDT C. DIFFICILE TOXIN B PCR WITH REFLEX TO C. DIFFICILE ANTIGEN AND TOXINS A/B EIA STAT 06/10/2024 8:41 AM CDT MAGNESIUM Routine 06/10/2024 5:46 AM CDT BASIC METABOLIC PANEL Routine 06/10/2024 5:46 AM CDT CBC WITH PLATELETS Routine 06/10/2024 5: 46 AM CDT MAGNESIUM Timed 06/09/2024 2:23 PM CDT CBC WITH PLATELETS STAT 06/09/2024 7: 21 AM CDT BASIC METABOLIC PANEL STAT 06/09/2024 7:21 AM CDT XR SURGERY KATY FLUORO LESS THAN 5 MIN W STILLS STAT 06/09/2024 6:50 AM CDT CYSTOSCOPY, WITH RETROGRADE PYELOGRAM AND URETERAL STENT INSERTION 06/09/2024 6:31 AM CDT Left ureteral calculus URINE CULTURE STAT 06/09/2024 12:48 AM CDT ROUTINE UA WITH MICROSCOPIC REFLEX TO CULTURE STAT 06/09/2024 12:48 AM CDT XR CHEST 2 VIEWS STAT 06/08/2024 11:[address] ABDOMEN PELVIS W/O CONTRAST STAT 06/08/2024 11:35 PM CDT ISTAT GASES LACTATE VENOUS POCT STAT 06/08/2024 10:25 PM CDT VERIGENE GN PANEL Routine 06/08/2024 10: 24 PM CDT BLOOD CULTURE STAT 06/08/2024 10:24 PM CDT CBC WITH PLATELETS & DIFFERENTIAL STAT 06/08/2024 8:38 PM CDT CK TOTAL STAT 06/08/2024 8:38 PM CDT PROCALCITONIN STAT 06/08/2024 8:38 PM CDT MAGNESIUM STAT 06/08/2024 8:38 PM CDT CBC WITH PLATELETS AND DIFFERENTIAL STAT 06/08/2024 8:38 PM CDT COMPREHENSIVE METABOLIC PANEL STAT 06/08/2024 8:38 PM CDT EKG 12-LEAD, TRACING ONLY STAT 06/08/2024 8:08 PM CDT GLUCOSE BY METER STAT 06/08/2024 8:01 PM CDT LIPID REFLEX TO DIRECT LDL PANEL STAT 12/24/2023 11:[address] CHEST LUNG CANCER SCREEN LOW DOSE [...] Recently Relevant to Health Maintenance Results * Potassium (06/16/2024 12:48 AM CDT) Potassium 4.0 3.4 - 5.3 mmol/L 06/16/2024 1:22 AM CDT LABORATORY Blood STRUCTURE OF RIGHT HAND / Unknown Venipuncture / Unknown 06/16/2024 12:48 AM CDT 06/16/2024 12:59 AM CDT Yan King MD LAB - BLOOD ORDER SANTO [facility] [address] Lab (1st floor, no room number) [place] [phone] * (ABNORMAL) Magnesium (06/15/2024 8:35 PM CDT) Only the most recent of7 resultswithin the time period is included. Magnesium 1.6(L) 1.7 - 2.3 mg/dL 06/15/2024 9:04 PM CDT LABORATORY Blood STRUCTURE OF LEFT UPPER LIMB / Unknown Venipuncture / Unknown 06/15/2024 8:35 PM CDT 06/15/2024 8:38 PM CDT Yan King MD LAB - BLOOD ORDER SANTO [facility] [address] Lab (1st floor, no room number) [place] [id number] * (ABNORMAL) Glucose by meter (06/15/2024 8:22 PM CDT) Only the most recent of3 resultswithin the time period is included. GLUCOSE BY METER POCT 111(H) 70 - 99 mg/dL 06/15/2024 8:34 PM CDT [facility] LABORATORY POC Blood, Capillary BLOOD SPECIMEN / Unknown 06/15/2024 8:22 PM CDT 06/15/2024 8:34 PM CDT Yan King MD LAB - BEAKER POCT [facility] LABORATORY POC [facility] [address] Lab (1st floor, no room number) [place] [address], [facility] * (ABNORMAL) Basic metabolic panel (06/15/2024 7:24 AM CDT) Only the most recent of6 resultswithin the time period is included. Sodium 140 135 - 145 mmol/L 06/15/2024 7:52 AM CDT LABORATORY Potassium 3.3(L) 3.4 - 5.3 mmol/L 06/15/2024 7:52 AM CDT LABORATORY Chloride 111(H) 98 - 107 mmol/L 06/15/2024 7:52 AM CDT LABORATORY Carbon Dioxide (CO2) 13(L) 22 - 29 mmol/L 06/15/2024 7:52 AM CDT LABORATORY Anion Gap 16(H) 7 - 15 mmol/L 06/15/2024 7:52 AM CDT LABORATORY Urea Nitrogen 17.0 8.0 - 23.0 mg/dL 06/15/2024 7:52 AM CDT LABORATORY Creatinine 1.37(H) 0.67 - 1.17 mg/dL 06/15/2024 7:52 AM CDT LABORATORY GFR Estimate 57(L) >60 mL/min/1.7 3m2 06/15/2024 7:52 AM CDT LABORATORY Comment:eGFR calculated usin 2020 CKD-EPI equation. Calcium 7.8(L) 8.8 - 10.4 mg/dL 06/15/2024 7:52 AM CDT LABORATORY Comment:Reference intervals for this test were updated on 05/04/2024 to reflect our healthy population more accurately. There may be differences in the flagging of prior results with similar values performed with this method. Those prior results can be interpreted in the context of the updated reference intervals. Glucose 93 70 - 99 mg/dL 06/15/2024 7:52 AM CDT [facility] LABORATORY Blood STRUCTURE OF LEFT HAND / Unknown Venipuncture / Unknown 06/15/2024 7:24 AM CDT 06/15/2024 7:31 AM CDT Girma Nash MD LAB - BLOOD ORDERABL ES [facility] LABORATORY [facility] [address] Lab (1st floor, no room number) [place] [address] * (ABNORMAL) CBC with platelets (06/15/2024 7:24 AM CDT) Only the most recent of6 resultswithin the time period is included. WBC Count 9.5 4.0 - 11.0 10e3/uL 06/15/2024 8:08 AM CDT [facility] LABORATORY RBC Count 3.57(L) 4.40 - 5.90 10e6/uL 06/15/2024 8:08 AM CDT [facility] LABORATORY Hemoglobin 10.8(L) 13.3 - 17.7 g/dL 06/15/2024 8:08 AM CDT [facility] LABORATORY Hematocrit 33.9(L) 40.0 - 53.0 % 06/15/2024 8:08 AM CDT [facility] LABORATORY MCV 95 78 - 100 fL 06/15/2024 8:08 AM CDT [facility] LABORATORY MCH 30.3 26.5 - 33.0 pg 06/15/2024 8:08 AM CDT [facility] LABORATORY MCHC 31.9 31.5 - 36.5 g/dL 06/15/2024 8:08 AM CDT [facility] LABORATORY RDW 13.9 10.0 - 15.0 % 06/15/2024 8:08 AM CDT [facility] LABORATORY Platelet Count 224 150 - 450 10e3/uL 06/15/2024 8:08 AM CDT [facility] LABORATORY Blood STRUCTURE OF LEFT HAND / Unknown Venipuncture / Unknown 06/15/2024 7:24 AM CDT 06/15/2024 7:32 AM CDT Girma Nash MD LAB - BLOOD ORDERABL ES [facility] [address] Lab (1st floor, no room number) [place] [address], [facility] * CT Abdomen Pelvis w Contrast (06/13/2024 9:19 PM CDT) Anatomical Region Laterality Modality Abdomen/Pelvis, SUBRAD CT CAROLANN DY, UMP CT ABDOMEN PELVIS, RAD CT Computed Tomography 06/13/2024 9:19 PM CDT Impressions 06/13/2024 9:45 PM CDT IMPRESSION: 1. ??Enlarged left kidney with patchy areas of decreased cortical enhancement consistent with pyelonephritis. 2. ??Appropriately positioned right nephroureteral stent. Bilateral nonobstructive nephrolithiasis. 3. ??Diffuse bladder wall thickening consistent with cystitis. 4. ??Mild mucosal hyperenhancement of the colon and distal colon wall thickening consistent with diarrheal illness/colitis. Narrative 06/13/2024 9:45 PM CDT EXAM: CT ABDOMEN PELVIS W CONTRAST LOCATION: [facility] DATE: 06/13/2024 INDICATION: ongoing infectious symptoms, diarrhea, eval abscess, eval stent COMPARISON: ??CT abdomen and pelvis without contrast 12/09/2023 TECHNIQUE: CT scan of the abdomen and pelvis was performed following injection of IV contrast. Multiplanar reformats were obtained. Dose reduction techniques were used. CONTRAST: 81 mL Isovue 370 FINDINGS: LOWER CHEST: Trace pleural fluid in the posterior costophrenic sulci. Imaged lung bases are clear. There are small lower paraesophageal varices. HEPATOBILIARY: Gallbladder is decompressed. There is gallbladder enhancement and mild, nonspecific edema in the pericholecystic fat. No bile duct enlargement. The liver is normal in size. There is a benign hemangioma anterior left lobe measuring 11 x 14 mm (series 3, image 28). Normal opacification of the portal and hepatic veins. PANCREAS: Normal. SPLEEN: Normal. ADRENAL GLANDS: Normal. KIDNEYS/BLADDER: Appropriately positioned right percutaneous nephrostomy. No hydronephrosis. Patchy areas of decreased cortical enhancement and tissue thickening in the left kidney consistent with pyelonephritis. There are several punctate calculi at the left cortical medullary junction. There is urothelial thickening of the left renal pelvis. Diffuse bladder wall thickening and mild edema in the perivesicular fat in the pelvis. BOWEL: Nondistended stomach. Small bowel is normal caliber. There is subtle mucosal hyperenhancement of the colon greatest in the sigmoid and rectum where there is also subtle submucosal edema. No extra colonic inflammatory stranding. No pneumatosis or ascites. LYMPH NODES: Normal. VASCULATURE: Mixed attenuation but predominantly calcified plaque throughout the abdominal aorta and in the common iliac arteries producing areas of around 50% luminal narrowing in both common iliac arteries. PELVIC ORGANS: Prostate gland is normal in size. Seminal vesicles are symmetric. MUSCULOSKELETAL: There is a mild anterior wedge deformity of T12. Small lumbar degenerative osteophytes. No aggressive or destructive bone lesions. Procedure Note Garrick Lozada MD - 06/13/2024 EXAM: CT ABDOMEN PELVIS W CONTRAST LOCATION: [facility] DATE: 06/13/2024 INDICATION: ongoing infectious symptoms, diarrhea, eval abscess, evalstent COMPARISON: CT abdomen and pelvis without contrast 12/09/2023 TECHNIQUE: CT scan of the abdomen and pelvis was performed followinginjection of IV contrast. Multiplanar reformats were obtained. Dosereduction techniques were used. CONTRAST: 81 mL Isovue 370 FINDINGS: LOWER CHEST: Trace pleural fluid in the posterior costophrenic sulci.Imaged lung bases are clear. There are small lower paraesophagealvarices. HEPATOBILIARY: Gallbladder is decompressed. There is gallbladderenhancement and mild, nonspecific edema in the pericholecystic fat. Nobile duct enlargement. The liver is normal in size. There is a benignhemangioma anterior left lobe measuring 11 x 14 mm (series 3, image 28). Normal opacification of the portal and hepaticveins. PANCREAS: Normal. SPLEEN: Normal. ADRENAL GLANDS: Normal. KIDNEYS/BLADDER: Appropriately positioned right percutaneous nephrostomy.No hydronephrosis. Patchy areas of decreased cortical enhancement andtissue thickening in the left kidney consistent with pyelonephritis. Thereare several punctate calculi at the left cortical medullary junction. There is urothelial thickening of theleft renal pelvis. Diffuse bladder wall thickening and mild edema in theperivesicular fat in the pelvis. BOWEL: Nondistended stomach. Small bowel is normal caliber. There issubtle mucosal hyperenhancement of the colon greatest in the sigmoid andrectum where there is also subtle submucosal edema. No extra colonicinflammatory stranding. No pneumatosis or ascites. LYMPH NODES: Normal. VASCULATURE: Mixed attenuation but predominantly calcified plaquethroughout the abdominal aorta and in the common iliac arteries producingareas of around 50% luminal narrowing in both common iliac arteries. PELVIC ORGANS: Prostate gland is normal in size. Seminal vesicles aresymmetric. MUSCULOSKELETAL: There is a mild anterior wedge deformity of T12. Smalllumbar degenerative osteophytes. No aggressive or destructive bonelesions. IMPRESSION: 1. Enlarged left kidney with patchy areas of decreased corticalenhancement consistent with pyelonephritis. 2. Appropriately positioned right nephroureteral stent. Bilateralnonobstructive nephrolithiasis. 3. Diffuse bladder wall thickening consistent with cystitis. 4. Mild mucosal hyperenhancement of the colon and distal colon wallthickening consistent with diarrheal illness/colitis. Diane Dixon PA-C IMG CT ORDERABLE S * (ABNORMAL) UA with Microscopic reflex to Culture (06/13/2024 7:16 PM CDT) Only the most recent of2 resultswithin the time period is included. Color Urine [place](A) Colorless, Straw, Light Yellow, Yellow 06/13/2024 7:33 PM CDT [facility] Appearance Urine Slightly Cloudy(A) Clear 06/13/2024 7:33 PM CDT [facility] Glucose Urine Negative Negative mg/dL 06/13/2024 7:33 PM CDT [facility] Bilirubin Urine Negative Negative 7:33 PM CDT [facility] Ketones Urine 10(A) Negative mg/dL 06/13/2024 7:33 PM CDT [facility] Specific [place] Urine 1.016 1.003 - 1.035 06/13/2024 7:33 PM CDT [facility] Blood Urine Large(A) Negative 06/13/2024 7:33 PM CDT [facility] pH Urine 6.0 5.0 - 7.0 06/13/2024 7:33 PM CDT [facility] Protein Albumin Urine 100(A) Negative mg/dL 06/13/2024 7:33 PM CDT [facility] Urobilinogen Urine Normal Normal, 2.0 mg/dL 06/13/2024 7:33 PM CDT [facility] Nitrite Urine Negative Negative 06/13/2024 7:33 PM CDT [facility] Leukocyte Esterase Urine Large(A) Negative 06/13/2024 7:33 PM CDT [facility] Mucus Urine Present(A) None Seen /LPF 06/13/2024 7:33 PM CDT [facility] RBC Urine >182(H) <=2 /HPF 06/13/2024 7:33 PM CDT [facility] WBC Urine >182(H) <=5 /HPF 06/13/2024 7:33 PM CDT [facility] Urine URINE SPECIMEN OBTAINED BY CLEAN CATCH PROCEDURE / Unknown Non-blood Collection / Unknown 06/13/2024 7:16 PM CDT 06/13/2024 7:19 PM CDT Narrative [facility] - 06/13/2024 7:33 PM CDT Urine Culture ordered based on laboratory criteria Diane Dixon PA-C LAB - URINE ORDE RABLES LABORAT[facility] [address] [facility] Lab (1st floor, no room number) [place] [address], [facility] * Urine Culture (06/13/2024 7:16 PM CDT) Only the most recent of2 resultswithin the time period is included. Culture No Growth 06/14/2024 11:52 PM CDT [facility] Urine URINE SPECIMEN OBTAINED BY CLEAN CATCH PROCEDURE / Unknown Non-blood Collection / Unknown 06/13/2024 7:16 PM CDT 06/13/2024 7:33 PM CDT Diane Dixon PA-C LAB - MICRO GENE RAL ORDERABLES [facility] Inf. Diseases Diag. Lab [address] [facility], [address] [place] [address], [facility] * Head CT w/o contrast (06/13/2024 7:00 PM CDT) Anatomical Region Laterality Modality Head, SUBRAD CT NEURO, SUBRA D CT NEURO, UMP CT NEURO, RAD CT Computed Tomography 06/13/2024 7:00 PM CDT Impressions 06/13/2024 7:54 PM CDT IMPRESSION: 1. ??No CT evidence for acute intracranial process. 2. ??Brain atrophy, chronic infarcts, and presumed chronic microvascular ischemic changes as above. Narrative 06/13/2024 7:54 PM CDT EXAM: CT HEAD W/O CONTRAST LOCATION: [facility] DATE: 06/13/2024 INDICATION: syncope, head strike COMPARISON: MRI brain 03/08/2024 TECHNIQUE: Routine CT Head without IV contrast. Multiplanar reformats. Dose reduction techniques were used. FINDINGS: INTRACRANIAL CONTENTS: No intracranial hemorrhage, extraaxial collection, or mass effect. ??No CT evidence of acute infarct. Moderate presumed chronic small vessel ischemic changes. Multiple scattered chronic lacunar infarcts are again noted, similar prior. Moderate generalized volume loss. No hydrocephalus. VISUALIZED ORBITS/SINUSES/MASTOIDS: No intraorbital abnormality. No paranasal sinus mucosal disease. No middle ear or mastoid effusion. BONES/SOFT TISSUES: No scalp hematoma. No skull fracture. Procedure Note Luciano Mishra MD - 06/13/2024 EXAM: CT HEAD W/O CONTRAST LOCATION: [facility] DATE: 06/13/2024 INDICATION: syncope, head strike COMPARISON: MRI brain 03/08/2024 TECHNIQUE: Routine CT Head without IV contrast. Multiplanar reformats.Dose reduction techniques were used. FINDINGS: INTRACRANIAL CONTENTS: No intracranial hemorrhage, extraaxial collection,or mass effect. No CT evidence of acute infarct. Moderate presumedchronic small vessel ischemic changes. Multiple scattered chronic lacunarinfarcts are again noted, similar prior. Moderate generalized volume loss. No hydrocephalus. VISUALIZED ORBITS/SINUSES/MASTOIDS: No intraorbital abnormality. Noparanasal sinus mucosal disease. No middle ear or mastoid effusion. BONES/SOFT TISSUES: No scalp hematoma. No skull fracture. IMPRESSION: 1. No CT evidence for acute intracranial process. 2. Brain atrophy, chronic infarcts, and presumed chronic microvascularischemic changes as above. Diane Dixon PA-C IMG CT ORDERABLE S * Extra Red Top Tube (06/13/2024 6:32 PM CDT) Hold Specimen [facility] 06/13/2024 8:06 PM CDT [facility] Blood BLOOD SPECIMEN / Unknown Venipuncture / Unknown 06/13/2024 6:32 PM CDT 06/13/2024 6:51 PM CDT Diane Dixon PA-C LAB - BLOOD NEELAKaia EL [facility] Lab [address] Lab (1st floor, no room number) [address] * Extra Blue Top Tube (06/13/2024 6:32 PM CDT) Hold Specimen [facility] 06/13/2024 8:06 PM CDT [facility] Blood BLOOD SPECIMEN / Unknown Venipuncture / Unknown 06/13/2024 6:32 PM CDT 06/13/2024 6:51 PM CDT Diane Dixon PA-C LAB - BLOOD ORDKaia NIKKO [facility] Lab [address] Lab (1st floor, no room number) [address] * (ABNORMAL) CBC with platelets and differential (06/13/2024 6:32 PM CDT) Only the most recent of2 resultswithin the time period is included. WBC Count 12.6(H) 4.0 - 11.0 10e3/uL 06/13/2024 6:59 PM CDT [facility] RBC Count 4.00(L) 4.40 - 5.90 10e6/uL 06/13/2024 6:59 PM CDT [facility] Hemoglobin 11.8(L) 13.3 - 17.7 g/dL 06/13/2024 6:59 PM CDT [facility] Hematocrit 36.2(L) 40.0 - 53.0 % 06/13/2024 6:59 PM CDT [facility] MCV 91 78 - 100 fL 06/13/2024 6:59 PM CDT [facility] MCH 29.5 26.5 - 33.0 pg 06/13/2024 6:59 PM CDT [facility] MCHC 32.6 31.5 - 36.5 g/dL 06/13/2024 6:59 PM CDT [facility] RDW 14.0 10.0 - 15.0 % 06/13/2024 6:59 PM CDT [facility] Platelet Count 186 150 - 450 10e3/uL 06/13/2024 6:59 PM CDT [facility] % Neutrophils 71 % 06/13/2024 6:59 PM CDT [facility] % Lymphocytes 13 % 06/13/2024 6:59 PM CDT [facility] % Monocytes 9 % 06/13/2024 6:59 PM CDT [facility] % Eosinophils 2 % 06/13/2024 6:59 PM CDT [facility] % Basophils 1 % 06/13/2024 6:59 PM CDT [facility] % Immature Granulocytes 5 % 06/13/2024 6:59 PM CDT [facility] NRBCs per 100 WBC 0 <1 /100 024 6:59 PM CDT [facility] Absolute Neutrophils 8.9(H) 1.6 - 8.3 10e3/uL 06/13/2024 6:59 PM CDT [facility] Absolute Lymphocytes 1.6 0.8 - 5.3 10e3/uL 06/13/2024 6:59 PM CDT [facility] Absolute Monocytes 1.2 0.0 - 1.3 10e3/uL 06/13/2024 6:59 PM CDT [facility] Absolute Eosinophils 0.3 0.0 - 0.7 10e3/uL 06/13/2024 6:59 PM CDT [facility] Absolute Basophils 0.1 0.0 - 0.2 10e3/uL 06/13/2024 6:59 PM CDT [facility] Absolute Immature Granulocytes 0.7(H) <=0.4 10e3/uL 06/13/2024 6:59 PM CDT [facility] Absolute NRBCs 0.0 10e3/uL 06/13/2024 6:59 PM CDT [facility] Blood BLOOD SPECIMEN / Unknown Venipuncture / Unknown 06/13/2024 6:32 PM CDT 06/13/2024 6:51 PM CDT Diane Dixon PA-C LAB - BLOOD JOHN EL LAB[facility] [address] [facility] Lab (1st floor, no room number) [place] [address] * (ABNORMAL) Comprehensive metabolic panel (06/13/2024 6:32 PM CDT) Only the most recent of2 resultswithin the time period is included. Sodium 141 135 - 145 mmol/L 06/13/2024 7:12 PM CDT LABORATORY Potassium 3.4 3.4 - 5.3 mmol/L 06/13/2024 7:12 PM CDT LABOR[facility]ORY Carbon Dioxide (CO2) 17(L) 22 - 29 mmol/L 06/13/2024 7:12 PM CDT LABORATORY Anion Gap 15 7 - 15 mmol/L 06/13/2024 7:12 PM CDT [facility] Urea Nitrogen 21.6 8.0 - 23.0 mg/dL 06/13/2024 7:12 PM CDT [facility] Creatinine 1.68(H) 0.67 - 1.17 mg/dL 06/13/2024 7:12 PM CDT LABOR[facility]ORY GFR Estimate 44(L) >60 mL/min/1.7 3m2 06/13/2024 7:12 PM CDT [facility] Comment:eGFR calculated 2020 CKD-EPI equation. Calcium 9.2 8.8 - 10.4 mg/dL 06/13/2024 7:12 PM CDT [facility] Comment:Reference intervals for this test were updated on 05/04/2024 to reflect our healthy population more accurately. There may be differences in the flagging of prior results with similar values performed with this method. Those prior results can be interpreted in the context of the updated reference intervals. Chloride 109(H) 98 - 107 mmol/L 06/13/2024 7:12 PM CDT [facility] Glucose 94 70 - 99 mg/dL 06/13/2024 7:12 PM CDT [facility] Alkaline Phosphatase 102 40 - 150 U/L 06/13/2024 7:12 PM CDT [facility] AST 25 0 - 45 U/L 06/13/2024 7:12 PM CDT [facility] ALT 39 0 - 70 U/L 06/13/2024 7:12 PM CDT [facility] Protein Total 6.3(L) 6.4 - 8.3 g/dL 06/13/2024 7:12 PM CDT [facility] Albumin 3.2(L) 3.5 - 5.2 g/dL 06/13/2024 7:12 PM CDT [facility] Bilirubin Total 0.4 <=1.2 mg/dL 06/13/2024 7:12 PM CDT [facility] Blood BLOOD SPECIMEN / Unknown Venipuncture / Unknown 06/13/2024 6:32 PM CDT 06/13/2024 6:51 PM CDT Diane Dixon PA-C LAB - BLOOD ORDE NIKKO LABORATORY [facility] [address] [facility] Lab (1st floor, no room number) [place] [address] * (ABNORMAL) iStat Gases (lactate) venous, POCT (06/13/2024 6:31 PM CDT) Only the most recent of2 resultswithin the time period is included. Lactic Acid POCT 0.6 <=2.0 mmol/L 06/13/2024 6:35 PM CDT [facility] POC Bicarbonate Venous POCT 20(L) 21 - 28 mmol/L 06/13/2024 6:35 PM CDT [facility] POC O2 Sat, Venous POCT 41(L) 70 - 75 % 06/13/2024 6:35 PM CDT [facility] POC pCO2 Venous POCT 34(L) 40 - 50 mm Hg 06/13/2024 6:35 PM CDT [facility] POC pH Venous POCT 7.37 7.32 - 7.43 06/13/2024 6:35 PM CDT [facility] POC pO2 Venous POCT 24(L) 25 - 47 mm Hg 06/13/2024 6:35 PM CDT [facility] POC Blood, venous BLOOD SPECIMEN / Unknown 06/13/2024 6:31 PM CDT 06/13/2024 6:35 PM CDT Diane Dixon PA-C LAB - BEAKER POC T [facility] POC [facility] [address] Lab (1st floor, no room number) [place] [address] * EKG 12-lead, tracing only (06/13/2024 6:08 PM CDT) Only the most recent of2 resultswithin the time period is included. Systolic Blood Pressure mmHg RADIOLOGY RESULTS Diastolic Blood Pressure mmHg RADIOLOGY RESULTS Ventricular Rate 77 BPM RAD IOLOGY RESULTS Atrial Rate 77 BPM RADIOLOG Y RESULTS [place] Interval 154 ms RADIOLOG Y RESULTS QRS Duration 92 ms RADIOLO GY RESULTS QT 408 ms RADIOLOGY RESULTS QTc 461 ms RADIOLOGY RESULTS P [place] 63 degrees RADIOLOGY RESULTS R AXIS 56 degrees RADIOLOGY RESULTS T [place] 66 degrees RADIOLOGY RESULTS Interpretation ECG Sinus rhythm Nonspecific T wave abnormality Prolonged QT Abnormal ECG When compared with ECG of 08-Jun-2024 20:08, Vent. rate has decreased by ??44 bpm T wave inversion now evident in Anterior leads Confirmed by - EMERGENCY ROOM, PHYSICIAN ([id number]), slot editor MARINA AL ([id number]) on 06/14/2024 7:07:33 AM RADIOLOGY RESULTS 06/13/2024 6:08 PM CDT 06/14/2024 7:07 AM CDT Diane Dixon PA-C ECG ORDERABLES RADIOLOGY RESULTS * Enteric Bacteria and Virus Panel PCR (06/10/2024 8:41 AM CDT) Campylobacter species Negative Negative 06/10/2024 12:48 PM CDT [facility] Salmonella species Negative Negative 2023 12:48 PM CDT [facility] Vibrio species Negative Negative 06/10/2024 12:48 PM CDT [facility] Vibrio cholerae Negative Negative 12:48 PM CDT [facility] Yersinia enterocolitica Negative Negative 06/10/2024 12:48 PM CDT [facility] Enteropathogenic E. coli (EPEC) Negative Negative, NA 06/10/2024 12:48 PM CDT [facility] Shiga-like toxin-producing E. coli (STEC) Negative Negative 06/10/2024 12:48 PM CDT [facility] Shigella/Enteroinvas tom E. coli (EIEC) Negative Negative 06/10/2024 12:48 PM CDT [facility] Cryptosporidium species Negative Negative 06/10/2024 12:48 PM CDT [facility] Giardia lamblia Negative Negative 12:48 PM CDT [facility] Norovirus Gl/Gll Negative Negative 06/10/20 12:48 PM CDT [facility] Rotavirus A Negative Negative 06/10/2024 12:48 PM CDT [facility] Plesiomonas shigelloides Negative Negative 06/10/2024 12:48 PM CDT [facility] Enteroaggregative E. coli (EAEC) Negative Negative 06/10/2024 12:48 PM CDT [facility] Enterotoxigenic E. coli (ETEC) Negative Negative 06/10/2024 12:48 PM CDT [facility] E. coli O157 NA Negative, NA 06/10/2024 12:48 PM CDT [facility] Cyclospora cayetanensis Negative Negative 06/10/2024 12:48 PM CDT [facility] Entamoeba histolytica Negative Negative 06/10/2024 12:48 PM CDT [facility] Adenovirus F40/41 Negative Negative 024 12:48 PM CDT [facility] Astrovirus Negative Negative 06/10/2024 12:48 PM CDT [facility] Sapovirus Negative Negative 06/10/2024 12:48 PM CDT [facility] Stool RECTAL CONTENTS / Unknown Non-blood Collection / Unknown 06/10/2024 8:41 AM CDT 06/10/2024 8:59 AM CDT Narrative [facility] - 06/10/2024 12:48 PM CDT Assay performed using the FDA-cleared FilmArray GI Panel from [employer] ??A negative result should not rule out infection in patients with a probability for gastrointestinal infection. The assay does not test for all potential infectious agents of diarrheal disease. ??Positive results do not distinguish between a viable or replicating organism and the presence of a nonviable organism or nucleic acid, nor do they exclude the possibility of coinfection by organisms not in the panel. ??Results are intended to aid in the diagnosis of illness and are meant to be used in conjunction with other clinical findings. This test has been verified and is performed by the Infectious Diseases Diagnostic Laboratory at [facility]. This laboratory is certified under the Clinical Laboratory Improvement Amendments of 1988 (CLIA-88) as qualified to perform high complexity clinical laboratory testing. Kory Mcclure MD LAB - EpicTopic GEN Ditto LabsL ORDERABLES [facility] Inf. Diseases Diag. Lab [address] [facility], [address] [place] [address], [facility] * C. difficile Toxin B PCR with reflex to C. difficile Antigen and Toxins A/B EIA (06/10/2024 8:41 AMCDT) [facility] C Difficile Toxin B by PCR Negative Negative 06/10/2024 11:50 AM CDT [facility] Comment:A negative result do es not exclude actual disease due to C. difficile and may be due to improper collection, handling and storage of the specimen or the number of organisms in the specimen is below the detection limit of the assay. Stool RECTAL CONTENTS / Unknown Non-blood Collection / Unknown 06/10/2024 8:41 AM CDT 06/10/2024 8:59 AM CDT Narrative [facility] - 06/10/2024 11:50 AM CDT The [employer] Xpert C. difficile Assay, performed on the [employer] GeneXpert?? Instrument Systems, is a qualitative in vitro diagnostic test for rapid detection of toxin B gene sequences from unformed (liquid or soft) stool specimens collected from patients suspected of having Clostridioides difficile infection (CDI). The test utilizes automated real-time polymerase chain reaction (PCR) to detect toxin gene sequences associated with toxin producing C. difficile. The Xpert C. difficile Assay is intended as an aid in the diagnosis of CDI. Kory Mcclure MD LAB - MICRO GEN ERAL ORDERABLES [facility] Inf. Diseases Diag. Lab [address] [facility], [address] [place] [address] * XR Surgery KATY L/T 5 Min Fluoro w Stills (06/09/2024 6:50 AM CDT) Narrative [facility] - 06/09/2024 6:51 AM CDT This exam was marked as non-reportable because it will not be read by a radiologist or a [place] non-radiologist provider. Harvey Novoa DO IMG DIAGNOSTIC IMAG ING ORDERABLES Performing Organization Address [facility] Co de Phone Number [facility] * XR Chest 2 Views (06/08/2024 11:47 PM CDT) Anatomical Region Laterality Modality Chest Digital Radiogra phy 06/08/2024 11:4 7 PM CDT Impressions 06/09/2024 12:00 AM CDT IMPRESSION: Heart size is normal. Lungs are clear bilaterally. Mediastinum and visualized bony structures are unremarkable. Narrative 06/09/2024 12:00 AM CDT EXAM: XR CHEST 2 VIEWS LOCATION: [facility] DATE: 06/08/2024 INDICATION: sepsis COMPARISON: 12/09/2023 Procedure Note Lon Pickard MD - 06/09/2024 EXAM: XR CHEST 2 VIEWS LOCATION: [facility] DATE: 06/08/2024 INDICATION: sepsis COMPARISON: 12/09/2023 IMPRESSION: Heart size is normal. Lungs are clear bilaterally. Mediastinum andvisualized bony structures are unremarkable. Teofilo Cody MD IMG DIAGNOSTIC IMAGI NG ORDERABLES * CT Abdomen Pelvis w/o Contrast (06/08/2024 11:35 PM CDT) Anatomical Region Laterality Modality Abdomen/Pelvis, SUBRAD CT CAROLANN DY, UMP CT ABDOMEN PELVIS, RAD CT Computed Tomography 06/08/2024 11:3 5 PM CDT Impressions 06/08/2024 11:58 PM CDT IMPRESSION: 1. ??3 mm stone in the mid left ureter with associated mild hydronephrosis. Multiple other small nonobstructing intrarenal stones. No left ureteral stone or hydronephrosis. 2. ??Hepatic steatosis. 3. ??Bilateral perinephric fat stranding, of indeterminate etiology, not significantly changed as compared to 12/09/2023 exam. 4. ??Prostatomegaly with diffuse urinary bladder wall thickening, nonspecific, can be seen with underdistention versus chronic bladder outlet obstruction versus chronic cystitis. Narrative 06/08/2024 11:58 PM CDT EXAM: CT ABDOMEN PELVIS W/O CONTRAST LOCATION: [facility] DATE: 06/08/2024 INDICATION: V/d, renal failure, sepsis. COMPARISON: CT abdomen and pelvis on 12/09/2023. TECHNIQUE: CT scan of the abdomen and pelvis was performed without intravenous contrast Multiplanar reformats were obtained. Dose reduction techniques were used. FINDINGS: LOWER CHEST: Mild basilar pulmonary opacities, likely atelectasis. Small hiatal hernia. ABDOMEN/PELVIS: Limited evaluation of the abdominal organs due to lack of intravenous contrast. HEPATOBILIARY: Diffuse hypodense appearance of the liver, likely due to underlying hepatic steatosis. The gallbladder is distended, otherwise unremarkable. PANCREAS: The unenhanced pancreas is grossly unremarkable. SPLEEN: No splenomegaly. ADRENAL GLANDS: No adrenal nodules. KIDNEYS/BLADDER: 3 mm stone in the mid right ureter with associated mild hydronephrosis. Multiple other small bilateral kidney stones. No left ureteral stone or hydronephrosis. Bilateral perinephric fat stranding, of indeterminate etiology. Diffuse urinary bladder wall thickening, nonspecific, can be seen with underdistention versus chronic bladder outlet obstruction versus chronic cystitis. BOWEL: No abnormally dilated bowel loops. The appendix is visualized and appears normal. PERITONEUM: No evidence of free fluid in the abdomen and pelvis. No free peritoneal or portal venous gas. PELVIC ORGANS: Unremarkable. VASCULATURE: Extensive atherosclerotic vascular calcification of the abdominal aorta and iliac arteries. LYMPH NODES: Multiple prominent retroperitoneal lymph nodes, indeterminate, could be reactive. MUSCULOSKELETAL: Mild compression deformity of the superior endplate of L1 with approximately 50% vertebral height loss, not significantly changed as compared to 12/09/2023 exam. Procedure Note Annelise Boggs MD - 06/09/2024 EXAM: CT ABDOMEN PELVIS W/O CONTRAST LOCATION: [facility] DATE: 06/08/2024 INDICATION: V/d, renal failure, sepsis. COMPARISON: CT abdomen and pelvis on 12/09/2023. TECHNIQUE: CT scan of the abdomen and pelvis was performed withoutintravenous contrast Multiplanar reformats were obtained. Dose reductiontechniques were used. FINDINGS: LOWER CHEST: Mild basilar pulmonary opacities, likely atelectasis. Smallhiatal hernia. ABDOMEN/PELVIS: Limited evaluation of the abdominal organs due to lack ofintravenous contrast. HEPATOBILIARY: Diffuse hypodense appearance of the liver, likely due tounderlying hepatic steatosis. The gallbladder is distended, otherwiseunremarkable. PANCREAS: The unenhanced pancreas is grossly unremarkable. SPLEEN: No splenomegaly. ADRENAL GLANDS: No adrenal nodules. KIDNEYS/BLADDER: 3 mm stone in the mid right ureter with associated mildhydronephrosis. Multiple other small bilateral kidney stones. No leftureteral stone or hydronephrosis. Bilateral perinephric fat stranding, ofindeterminate etiology. Diffuse urinary bladder wall thickening, nonspecific, can be seen withunderdistention versus chronic bladder outlet obstruction versus chroniccystitis. BOWEL: No abnormally dilated bowel loops. The appendix is visualized andappears normal. PERITONEUM: No evidence of free fluid in the abdomen and pelvis. No freeperitoneal or portal venous gas. PELVIC ORGANS: Unremarkable. VASCULATURE: Extensive atherosclerotic vascular calcification of theabdominal aorta and iliac arteries. LYMPH NODES: Multiple prominent retroperitoneal lymph nodes,indeterminate, could be reactive. MUSCULOSKELETAL: Mild compression deformity of the superior endplate of L1with approximately 50% vertebral height loss, not significantly changed ascompared to 12/09/2023 exam. IMPRESSION: 1. 3 mm stone in the mid left ureter with associated mild hydronephrosis.Multiple other small nonobstructing intrarenal stones. No left ureteralstone or hydronephrosis. 2. Hepatic steatosis. 3. Bilateral perinephric fat stranding, of indeterminate etiology, notsignificantly changed as compared to 12/09/2023 exam. 4. Prostatomegaly with diffuse urinary bladder wall thickening,nonspecific, can be seen with underdistention versus chronic bladderoutlet obstruction versus chronic cystitis. Teofilo Cody MD IMG CT ORDERABLES * (ABNORMAL) Verigene GN Panel (06/08/2024 10:24 PM CDT) Acinetobacter species Not Detected Not Detected 06/09/2024 11:28 AM CDT [facility] Citrobacter species Not Detected Not Detected 06/09/2024 11:28 AM CDT [facility] Enterobacter species Not Detected Not Detected 06/09/2024 11:28 AM CDT [facility] Proteus species Not Detected Not Detected 06/09/2024 11:28 AM CDT [facility] Escherichia coli Not Detected Not Detected 06/09/2024 11:28 AM CDT [facility] Klebsiella pneumoniae Detected(A) Not Detected 06/09/2024 11:28 AM CDT [facility] Comment:Positive for Klebsie lla pneumoniae by Verigene multiplex nucleic acid test. Final identification and antimicrobial susceptibility testing will be verified by standard methods. Klebsiella oxytoca Not Detected Not Detected 06/09/2024 11:28 AM CDT [facility] Pseudomonas aeruginosa Not Detected Not Detected 06/09/2024 11:28 AM CDT [facility] CTX-M Not Detected Not Detected, NA 06/09/2024 11:28 AM CDT [facility] KPC Not Detected Not Detected, NA 06/09/2024 11:28 AM CDT [facility] NDM Not Detected Not Detected, NA 06/09/2024 11:28 AM CDT [facility] VIM Not Detected Not Detected, NA 06/09/2024 11:28 AM CDT [facility] IMP Not Detected Not Detected, NA 06/09/2024 11:28 AM CDT [facility] OXA Not Detected Not Detected, NA 06/09/2024 11:28 AM CDT [facility] Blood BLOOD SPECIMEN / Unknown Venipuncture / Unknown 06/08/2024 10:24 PM CDT 06/08/2024 10:28 PM CDT Narrative [facility] - 06/09/2024 11:28 AM CDT Specimen tested with Verigene multiplex, gram-negative blood culture nucleic acid test for the following targets: Acinetobacter species, Citrobacter species, Enterobacter species, Proteus species, Escherichia coli, Klebsiella pneumoniae, Klebsiella oxytoca, Pseudomonas aeruginosa, and the following resistance markers: CTX-M, KPC, NDM, VIM, IMP and OXA. Teofilo Cody MD LAB - MICRO GENERAL ORDERABLES [facility] Inf. Diseases Diag. Lab [address] [facility], [address] [place], [place] [id number] * (ABNORMAL) Blood Culture Peripheral Blood (06/08/2024 10:24 PM CDT) Culture Positive on the 1st day of incubation(A) 06/11/2024 7:20 AM CDT [facility] Culture Klebsiella pneumoniae(AA) 06/11/2024 7:20 AM CDT [facility] Comment:2 of 2 bottles Blood BLOOD SPECIMEN / Unknown Venipuncture / Unknown 06/08/2024 10:24 PM CDT 06/08/2024 10:28 PM CDT Narrative Organism Antibiotic Method Susceptibility Klebsiella pneumoniae Ampicillin FROYLAN Resistant Comment:Intrinsicall y Resistant Klebsiella pneumoniae Ampicillin/ Sulbactam FROYLAN 8 ug/mL: Susceptible Klebsiella pneumoniae Piperacillin/Tazobactam FROYLAN <=4 ug/mL: Susceptible Klebsiella pneumoniae Ceftazidime FROYLAN <=1 ug/mL: Susceptible Klebsiella pneumoniae Ceftriaxone FROYLAN <=1 ug/mL: Susceptible Klebsiella pneumoniae Cefepime FROYLAN <=1 ug/mL: Susceptible Klebsiella pneumoniae Meropenem FROYLAN <=0.25 ug/mL: Susceptible Klebsiella pneumoniae Gentamicin FROYLAN <=1 ug/mL: Susceptible Klebsiella pneumoniae Tobramycin FROYLAN <=1 ug/mL: Susceptible Klebsiella pneumoniae Ciprofloxacin FROYLAN <=0.25 ug/mL: Susceptible Klebsiella pneumoniae Levofloxacin FROYLAN <=0.12 ug/mL: Susceptible Klebsiella pneumoniae Trimethoprim/Sulfa methoxazol e FROYLAN <=1/19 ug/mL: Susceptible Teofilo Cody MD LAB - MICRO GENERAL ORDERABLES [facility] Inf. Diseases Diag. Lab [address] [facility], [address] [place] [address], [facility] * (ABNORMAL) Procalcitonin (06/08/2024 8:38 PM CDT) [facility] Procalcitonin 18.09(HH) <0.50 ng/mL 06/08/2024 10:28 PM CDT LABORATORY Comment: Interpretation and Recommendations <0.5 ng/mL: Systemic bacterial infection unlikely. Local bacterial infection is possible. 0.5-1.99 ng/mL: Systemic bacterial infection possible, but various other conditions are known to induce PCT as well. >=2.00 ng/mL: Systemic bacterial infection likely, unless other causes are known. Decision to start antibiotics should not be based on procalcitonin level alone. See Procalcitonin Guidance document for more details. https://[employer]/files/[employer]/documents/wlzwh-etwbacvnykrpk-whikbuso-on-ant ibiot [email or web address].pdf Factors that may affect PCT levels (not all-inclusive): ?? - Increased PCT level ?Severe trauma/pulliam ?Invasive surgery ?Cooling therapy after cardiac arrest/surgery ?Treatment with agents which stimulate cytokines ?Acute kidney injury ?Chronic kidney disease and end stage renal disease ?Acute graft vs host disease ?Non-specific shock causing decreased organ perfusion and/or infarction ?? - Normal or unchanged PCT level ?Early in infections (if low and infection is suspected, repeating in 6-12 hours is recommended) ?Chronic infections (endocarditis, osteomyelitis, prosthetic device/graft infections) ?Localized infections (cellulitis, wound infections, intra-abdominal abscess) Note: PCT has not been extensively studied in /, pediatrics, severe immunosuppression, and cystic fibrosis. Blood BLOOD SPECIMEN / Unknown Venipuncture / Unknown 06/08/2024 8:38 PM CDT 06/08/2024 8:50 PM CDT Teofilo Cody MD LAB - BLOOD ORDERABL ES [facility] Lab [address] Lab (1st floor, no room number) [place] [phone] [place] [address] * CK total (06/08/2024 8:38 PM CDT) CK 194 39 - 308 U/L 06/08/2024 10:15 PM CDT LABORATORY Blood BLOOD SPECIMEN / Unknown Venipuncture / Unknown 06/08/2024 8:38 PM CDT 06/08/2024 8:50 PM CDT Teofilo Cody MD LAB - BLOOD ORDERABL ES Performing Organization Address [facility]/ZIP Co de Phone Number [facility] [address] Lab (1st floor, no room number) [place] [phone] [place] [address] * Lipid panel reflex to direct LDL (12/24/2023 11:28 PM SMOKE EATER) Cholesterol 166 <200 mg/dL 12/25/2023 3:05 AM SMOKE EATER [facility] Triglycerides 138 <150 mg/dL 12/25/2023 3:05 AM SMOKE EATER [facility] Direct Measure HDL 49 >=40 mg/dL 2023 3:05 AM SMOKE EATER [facility] LDL Cholesterol Calculated 89 <=100 mg/dL 12/25/2023 3:05 AM SMOKE EATER [facility] Non HDL Cholesterol 117 <130 mg/dL 12/25/2023 3:05 AM SMOKE EATER [facility] Blood STRUCTURE OF RIGHT UPPER LIMB / Unknown Venipuncture / Unknown 12/24/2023 11:28 PM SMOKE EATER 12/24/2023 11:44 PM SMOKE EATER Narrative [facility] - 12/25/2023 3:05 AM SMOKE EATER Cholesterol Desirable: ??<200 mg/dL Triglycerides Normal: ??Less [...] ??Greater than or equal to 220 mg/dL Gracia Edgar MD LAB - BLOOD OR DERABLES [facility] Lab [address] [facility], [address] [phone] [phone] * CT Chest Lung Cancer Scrn Low Dose wo (08/05/2023) Anatomical Region Laterality Modality Chest, SUBRAD CT BODY, UMP CT CHEST, RAD CT Computed Tomography Narrative 08/05/2023 [address] [facility], [address] [place] [address] [place] : 1955 Req Phys: Nathalie Tate MD Patient name: JED ALAMO Clinic: [facility] Dept No: [id number] CT CHEST LUNG CANCER SCREENING Exam Date: 08/05/2023 EXAM: LOW DOSE LUNG CANCER SCREENING CT CHEST LOCATION: [facility] [place] DATE: 08/05/2023 INDICATION: Lung cancer screening. History [...] low-dose CT chest in 12 months. KO EFLIZ M.D. Trans: CRISTIANK Date Of Trans: 08/05/2023 3:37:00PM Page 1 of 2 JED ALAMO : 1955 Exam: CT CHEST LUNG CANCER SCREENING Password protected electronic signature by: Date report approved and signed by interpreting physician: 08/05/2023 5:41:00PM Page 2 of 2 Nathalie Tate MD IM CT ORDERABLES * ALBUMIN RANDOM URINE QUANTITATIVE [...] CDT 01/20/2022 11:01 AM CDT Quin Lawler DNP LAB - STOOLS ORDERAB LES Performing Organization Address City/[facility]/ZIP Co de Phone Number LABORATORY [facility] Lab [address] Lab (1st floor, no room number) [place] [address], [facility] [phone] * Hepatitis C antibody (01/20/2022 1:02 AM [...] [facility] C[facility]/PROT/ENDO [facility] Specialty Core/Prot/Endo [address] [facility] [address], [address] [place] [address], [facility] [phone] * COLONOSCOPY W BIOPSY (05/09/2014) Alton Alonzo MD PROCEDURES from Last 3 Months or Most Recently Relevant to Health Maintenance Advance Directives For more information, please contact: [phone] Documents on File Type Date Recorded Patient Lab Coordinator Expl anation Advance Directives and Living Will 10/27/2018 5:32 AM POLST 10/23/2018 Advance Directives and Living Will 06/20/2015 11:45 AM Health Care Directiv e 03/23/2015 * Full Code (Latest Code Status on File) Date Activated Date Inactivated Comments 06/14/2024 12:02 AM All basic and advanced life-sustaining interventions are performed as appropriate Question Answer Comments Code status determined by: Discussion with patie nt/ legal decision maker * Full Code Date Activated Date Inactivated Comments 06/09/2024 1:22 AM 06/12/2024 6:14 PM All basic an d advanced life-sustaining interventions are performed as appropriate Question Answer Comments Code status determined by: Discussion with patie nt/ legal decision maker * Full Code Date Activated Date Inactivated Comments 02/29/2024 1:23 AM 03/04/2024 6:14 PM All basic an d advanced life-sustaining interventions are performed as appropriate Question Answer Comments Code status determined by: Other (please documen t) * Full Code Date Activated Date [...] Discussion with janellee nt/ legal decision maker Healthcare Agents on File Name Relationship Healthcare Agent Relationshi p Communication Porsche [place] Spouse Health Care Agent Care Teams Senior Systems Analyst Relationship Specialty Start Date End Date Nathalie Tate MD [address] [place] [address] PCP - General Family Medicine 12/09/23 Nathalie Tate MD [address] [place] [address] Assigned PCP 06/28/23 Akash Fitzgerald MD [address] [place] [address] Cardiovascular Disease 03/16/24 Akash Fitzgerald MD [address] [place] [address] Assigned Heart and Vascular Provider 04/11/24
--- OUTSIDE RECORDS SUMMARY | 2024-06-16 04:52 | XMS_ITS | Encounter Summary ---
Author Organization [facility] Address [address] [place] [id number] Care Team Providers Care Lecturer Of Portuguese Name Role Phone Nathalie Tate MD Unavailable [phone] Nathalie Tate MD Primary Care Provider [phone] Ip, Akash Escobar MD Unavailable [phone] Ip, Akash Escobar MD Unavailable [phone] Reason for Visit * Reason Comments Syncope * Auth/Cert (Routine) Specialty Diagnoses / Procedures Referred By Lobo falk Referred To Contact Med Surg Diagnoses Pyelonephritis, acute Syncope, unspecified syncope type Diarrhea, unspecified type Pyelonephritis, acute Syncope, unspecified syncope type Diarrhea, unspecified type 5 Medical Surgical [address] [place] [address] Referral ID Status Reason Start Date Expiration Date Visits Re quested Visits Authorized [id number] 1 1 Encounter Details Date Type Department Care Team (Late st Contact Info) Description 06/13/2024 6:01 PM CDT - Present Hospital Encounter [facility] 5 Medical Surgical [address] [place] [address] Harvey Salinas MD [facility] [address] [place] [address] [place] [id number] Diane Dixon PA-C [facility] [address] [place], [place] [id number] Abimael Higuera DO [facility] [address] [place] [address] [place] [id number] Yan King MD [address] [place] [address] Girma Nash MD [address] [place] [address] Pyelonephritis, acute; Syncope, unspecified syncope type; Diarrhea, unspecified type Social History Tobacco Use Types Packs/Day Years [...] in an abandoned building, in an overnight nursing home, or couch-surfing.) Yes 06/14/2024 Are you worried [...] Mass Index 22.13 06/14/2024 12:10 AM CDT documented in this encounter Progress Notes * Girma Nash MD - 06/15/2024 8:02 PM CDT [facility] Medicine Progress Note - Hospitalist Service Date of Admission: 06/13/2024 Assessment & Plan Jed Alamo is a 68 year old male admitted on 06/13/2024 with diarrhea and near syncopal event. PMH is notable for He had been discharged earlier in the day after a 5-day hospitalization for severe sepsis (SILVANO) dueto pyelonephritis in the setting of obstructive ureterolithiasis and Klebsiella bacteremia. He did undergo stent placement, but the stone was not removed. He was discharged on cefdinir. PMH is notable for postural hypotension, Etoh abuse, mild cognitive impairment and cerebrovascular disease. Vital signs on presentation to the ER: 135/68, heart rate 70, no fever, no hypoxia Labs notable for white blood cell count of 12.6. Lactic acid normal. Creatinine 1.7. Urinalysis shows greater than 182 white blood cells and greater than 182 red blood cells with large leukocyte esterase Imaging: CT Abd/pelvis: Enlarged left kidney with patchy areas of decreased cortical enhancement consistent with pyelonephritis...right nephroureteral stent...Mild mucosal hyperenhancement of the colon and distal colon wall thickening consistent with diarrheal illness/colitis. DX: Syncope. Possibly multifactorial with known postural hypotension, addition of tamsulosin, acute illness. Only mild dehydration, but CT identifies possible colitis. Noting that he has no evidence of heart dysfunction, a normal echo in December, suspect relative evanescent hypotension was the cause of his LOC. Concern for persistent pyelonephritis/urosepsis. Last hospitalization, pt had confirmed bacteremia. Diarrhea, probably due to abx. Eval during the recent hospital stay was negative for pathogenic organisms. Hx Etoh abuse, on Antabuse. PLAN: 1. Ceftriaxone IV. Consider switch to an alternative antibiotic on discharge, though Cefdinir is probably about as good as it gets for not causing problems with diarrhea. 2. Monitor SILVANO. Baseline creat 1.2 reportedly. 3. Will continue to offer Imodium and monitor for any concerning change in exam or character of thediarrhea (blood, tenesmes). 4. Change to inpatient. Diet: Regular Diet Adult DVT Prophylaxis: Pneumatic Compression Devices Trevino Catheter: Not present Lines: None Cardiac Monitoring: None Code Status: Full Code Clinically Significant Risk Factors # Hypokalemia: Lowest K = 3.3 mmol/L in last 2 days, will replace as needed # Hypoalbuminemia: Lowest albumin = 3.2 g/dL at 06/13/2024 6:32 PM, will monitor as appropriate # Hypertension: Noted on problem list # Dementia: noted on problem list # Financial/Environmental Concerns: Disposition Plan Medically Ready for Discharge: Anticipated Tomorrow at this time, it is expected the patient will discharge to transitional care. Girma Nash MD Hospitalist Service [facility] Securely message with [employer] (more info) Text page via [employer] Paging/Directory Interval History The patient was up ambulating in the halls with the supervision of Occupational Therapy. He appeared comfortable with a walker. At this time, the patient reports a single formed stool. Physical Exam Vital Signs: Temp: 99.2 ??F (37.3 ??C) Temp src: Oral BP: 139/73 Pulse: 74 Resp: 16 SpO2: 98 % O2 Device: None (Room air) Weight: 158 lbs 11.2 oz General Appearance: Alert, pale, but comfortable. Respiratory: no increased WOB Cardiovascular: RRR without murmur GI: Soft, non-tender, non-distended. No masses. Skin: no lesions, relatively dry Other: Medical Decision Making 35 MINUTES SPENT BY ME on the date of service doing chart review, history, exam, documentation & further activities per the note. Data Results for orders placed or performed during the hospital encounter of 06/13/24 (from the past 24 hour(s)) Basic metabolic panel Result Value Ref Range Sodium 140 135 - 145 mmol/L Potassium 3.3 (L) 3.4 - 5.3 mmol/L Chloride 111 (H) 98 - 107 mmol/L Carbon Dioxide (CO2) 13 (L) 22 - 29 mmol/L Anion Gap 16 (H) 7 - 15 mmol/L Urea Nitrogen 17.0 8.0 - 23.0 mg/dL Creatinine 1.37 (H) 0.67 - 1.17 mg/dL GFR Estimate 57 (L) >60 mL/min/1.73m2 Calcium 7.8 (L) 8.8 - 10.4 mg/dL Glucose 93 70 - 99 mg/dL CBC with platelets Result Value Ref Range WBC Count 9.5 4.0 - 11.0 10e3/uL RBC Count 3.57 (L) 4.40 - 5.90 10e6/uL Hemoglobin 10.8 (L) 13.3 - 17.7 g/dL Hematocrit 33.9 (L) 40.0 - 53.0 % MCV 95 78 - 100 fL MCH 30.3 26.5 - 33.0 pg MCHC 31.9 31.5 - 36.5 g/dL RDW 13.9 10.0 - 15.0 % Platelet Count 224 150 - 450 10e3/uL * Kennedi Rodriguez, PT - 06/14/2024 1:13 PM CDT 06/14/24 1200 Appointment Info Signing Clinician's Name / Credentials (PT) Kennedi Rodriguez PT Living Environment People in Home spouse Current [...] Usual Activity Tolerance good Current Activity Tolerance fair Equipment Currently Used at Home none Fall history within last six months yes Number of times patient has fallen within last six months 7 Activity/Exercise/Self-Care Comment indep w ADLS, very sedentary per spouse, limited interest in any activities, has WW to use if needed General Information Onset of Illness/Injury or Date of Surgery 06/14/24 Pertinent History of Current Problem (include personal factors and/or comorbidities that impact thePOC) 68-year-old male with a history of mild cognitive impairment, chronic kidney disease (CKD), postural hypotension, hyperlipidemia, prediabetes, and cerebrovascular disease presents with worsening diarrhea and generalized weakness since being discharged the day prior. Existing Precautions/Restrictions fall Cognition Affect/Mental Status (Cognition) flat/blunted affect Orientation Status (Cognition) oriented x 4 Follows Commands (Cognition) follows one-step commands;50-74% accuracy;repetition of directions required;verbal cues/prompting required Behavioral Issues withdrawn Cognitive Status Comments mild cog impairment Posture Posture Forward head position;Protracted shoulders Range of Motion (ROM) Range of Motion ROM is WFL Strength (Manual Muscle Testing) Strength (Manual Muscle Testing) Deficits observed during functional mobility Bed Mobility Comment, (Bed Mobility) Rolling to R w CGA, assist req to progress Transfers Comment, (Transfers) min A sit to stand w WW from EOB Gait/Stairs (Locomotion) Comment, (Gait/Stairs) CGA over 10 feet w WW dec step length slow pace, unsteady pathway Balance Balance Comments unsteady in standing and walking with narrowed WARREN Clinical Impression Criteria for Skilled Therapeutic Intervention Yes, treatment indicated PT Diagnosis (PT) Diarrhea Influenced by the following impairments dec strength and acivity tolerance, impaired gait dec indepw transfers and aDLS Functional limitations due to impairments impaired moblity Clinical Presentation (PT Evaluation Complexity) evolving Clinical Presentation Rationale clinical judgement Clinical Decision Making (Complexity) low complexity Planned Therapy Interventions (PT) balance training;gait training;stair training;strengthening;transfer training Risk & Benefits of therapy have been explained evaluation/treatment results reviewed;care plan/treatment goals reviewed;risks/benefits reviewed PT Discharge Planning PT Discharge Recommendation (DC Rec) Transitional Care Facility PT Rationale for DC Rec Pt recently readmitted after DC to home, current well below an indep baseline req A for mobility and ADLS inc toileting, pt's works pt reporting daughter lives with them and could assist, SW to confirm however PT recommending TCU due to need for assistance with mobility, ADLS and level of debility with mobilization as well as overall deconditioining with ongoing illness req hospitalization. PT Brief overview of current status A x 1 FWW * Girma Nash MD - 06/14/2024 8:45 AM CDT [facility] Medicine Progress Note - Hospitalist Service Date of Admission: 06/13/2024 Assessment & Plan Jed Alamo is a 68 year old male admitted on 06/13/2024 with diarrhea and near syncopal event. PMH is notable for He had been discharged earlier in the day after a 5-day hospitalization for severe sepsis (SILVANO) dueto pyelonephritis in the setting of obstructive ureterolithiasis and Klebsiella bacteremia. He did undergo stent placement, but the stone was not removed. He was discharged on cefdinir. PMH is notable for postural hypotension, Etoh abuse, mild cognitive impairment and cerebrovascular disease. Vital signs on presentation to the ER: 135/68, heart rate 70, no fever, no hypoxia Labs notable for white blood cell count of 12.6. Lactic acid normal. Creatinine 1.7. Urinalysis shows greater than 182 white blood cells and greater than 182 red blood cells with large leukocyte esterase Imaging: CT Abd/pelvis: Enlarged left kidney with patchy areas of decreased cortical enhancement consistent with pyelonephritis...right nephroureteral stent...Mild mucosal hyperenhancement of the colon and distal colon wall thickening consistent with diarrheal illness/colitis. DX: Syncope. Possibly multifactorial with known postural hypotension, addition of tamsulosin, acute illness. Only mild dehydration, but CT identifies possible colitis. Noting that he has no evidence of heart dysfunction, a normal echo in December, suspect relative evanescent hypotension was the cause of his LOC. Concern for persistent pyelonephritis/urosepsis. Last hospitalization, pt had confirmed bacteremia. Diarrhea, probably due to abx. Eval during the recent hospital stay was negative for pathogenic organisms. Hx Etoh abuse, on Antabuse. PLAN: 1. Ceftriaxone IV. Consider switch to an alternative antibiotic on discharge, though Cefdinir is probably about as good as it gets for not causing problems with diarrhea. 2. Monitor SILVANO. Baseline creat 1.2 reportedly. 3. Will continue to offer Imodium and monitor for any concerning change in exam or character of thediarrhea (blood, tenesmes). 4. Change to inpatient. Observation Goals: -diagnostic tests and consults completed and resulted, -vital signs normal or atpatient baseline, Nurse to notify provider when observation goals have been met and patient is ready for discharge. Diet: Regular Diet Adult DVT Prophylaxis: Pneumatic Compression Devices Trevino Catheter: Not present Lines: None Cardiac Monitoring: None Code Status: Full Code Clinically Significant Risk Factors Present on Admission # Hypokalemia: Lowest K = 3.3 mmol/L in last 2 days, will replace as needed # Hypocalcemia: Lowest Ca = 8.1 mg/dL in last 2 days, will monitor and replace as appropriate # Hypoalbuminemia: Lowest albumin = 3.2 g/dL at 06/13/2024 6:32 PM, will monitor as appropriate # Drug Induced Platelet Defect: home medication list includes an antiplatelet medication # Hypertension: Noted on problem list # Dementia: noted on problem list # Anemia: based on hgb <11 # Financial/Environmental Concerns: Disposition Plan Medically Ready for Discharge: Anticipated Tomorrow probably to TCU. Girma Nash MD Hospitalist Service [facility] Securely message with [employer] (more info) Text page via [facility] Paging/Directory Interval History Chart reviewed, pt interviewed. Pt is eager for discharge, and stated he felt well. His , on the other hand indicates that he was unable to safely get to the toilet and so she was unable to care for him. He continues to have some diarrheal stools. He did not recall passing out, but she describes that he was white as a sheet. But he also wakened without difficulty. Physical Exam Vital Signs: Temp: 98.5 ??F (36.9 ??C) Temp src: Oral BP: 133/55 Pulse: 64 Resp: 20 SpO2: 97 % O2 Device: None (Room air) Weight: 158 lbs 11.2 oz General Appearance: Alert, pale, but comfortable. Respiratory: no increased WOB Cardiovascular: RRR without murmur GI: Soft, non-tender, non-distended. No masses. Skin: no lesions, relatively dry Other: Medical Decision Making 35 MINUTES SPENT BY ME on the date of service doing chart review, history, exam, documentation & further activities per the note. Data Results for orders placed or performed during the hospital encounter of 06/13/24 (from the past 24 hour(s)) CT Abdomen Pelvis w Contrast Narrative EXAM: CT ABDOMEN PELVIS W CONTRAST LOCATION: [facility] DATE: 06/13/2024 INDICATION: ongoing infectious symptoms, diarrhea, eval abscess, eval stent COMPARISON: CT abdomen and pelvis without contrast [...] Appropriately positioned right percutaneous nephrostomy. No hydronephrosis. Patchyareas of decreased cortical enhancement and tissue thickening [...] osteophytes. No aggressive or destructive bone lesions. Impression IMPRESSION: 1. Enlarged left kidney with patchy areas of decreased cortical enhancement consistent with pyelonephritis. 2. Appropriately positioned right nephroureteral stent. Bilateral nonobstructive nephrolithiasis. 3. Diffuse bladder wall thickening consistent with cystitis. 4. Mild mucosal hyperenhancement of the colon and distal colon wall thickening consistent with diarrheal illness/colitis. Basic metabolic panel Result Value Ref Range Sodium 142 135 - 145 mmol/L Potassium 3.3 (L) 3.4 - 5.3 mmol/L Chloride 113 (H) 98 - 107 mmol/L Carbon Dioxide (CO2) 15 (L) 22 - 29 mmol/L Anion Gap 14 7 - 15 mmol/L Urea Nitrogen 17.8 8.0 - 23.0 mg/dL Creatinine 1.44 (H) 0.67 - 1.17 mg/dL GFR Estimate 53 (L) >60 mL/min/1.73m2 Calcium 8.1 (L) 8.8 - 10.4 mg/dL Glucose 84 70 - 99 mg/dL CBC with platelets Result Value Ref Range WBC Count 10.7 4.0 - 11.0 10e3/uL RBC Count 3.26 (L) 4.40 - 5.90 10e6/uL Hemoglobin 9.7 (L) 13.3 - 17.7 g/dL Hematocrit 29.3 (L) 40.0 - 53.0 % MCV 90 78 - 100 fL MCH 29.8 26.5 - 33.0 pg MCHC 33.1 31.5 - 36.5 g/dL RDW 13.8 10.0 - 15.0 % Platelet Count 201 150 - 450 10e3/uL documented in this encounter H&P Notes * Yan King MD - 06/13/2024 10:16 PM CDT Hospitalist Admission History and Physical CC: diarrhea HPI: 68 year old male with a history of mild cognitive impairment, chronic kidney disease, posturalhypotension, hyperlipidemia, prediabetes, cerebrovascular disease who presents with diarrhea and fall/near syncopal event The patient was discharged home yesterday after being hospitalized 06/08/2024 through 06/12/2024 for urosepsis and nephrolithiasis. Blood and urine cx from that admit gew Klebsiella (jensen-sens to all antibiotics besides ampicillin). Pt was treated with Rocephin while hospitalized and discharged on Omnicef Hospital course was c/b diarrhea and ARF on CKD. Cdiff and stool panel for bacteria/virus on 06/10 was neg Since discharge yesterday he has had worsening diarrhea. He has had worsening generalized weakness Vital signs on presentation to the ER included systolic blood pressure 135, heart rate near 70, no fever, no hypoxia Labs notable for white blood cell count of 12.6. Lactic acid normal. Creatinine 1.7. Urinalysis shows greater than 182 white blood cells and greater than 182 red blood cells with large leukocyte esterase Imaging included CT scan showing no acute findings. Abdominopelvic CT scan shows enlarged left kidney with patchy areas of decreased cortical enhancement consistent with pyelonephritis. Appropriatelypositioned right nephroureteral stent. Mild mucosal enhancement of the colon distal colon wall thickening consistent with diarrheal illness/colitis I spoke to the ER provider. Patient will be admitted to observation PMH: Past Medical History: Diagnosis Date ALCOHOL ABUSE, IN REMISSION AA weekly Arthritis Chronic kidney disease Eczema ED (erectile dysfunction) HTN (hypertension), benign 2003 Hyperlipidemia 2005 Prediabetes 2008 Medications: No current facility-administered medications for this encounter. Current Outpatient Medications Medication Sig Dispense Refill midodrine (PROAMATINE) 2.5 MG tablet Take 1 tablet (2.5 mg) by mouth 2 times daily Hold if SBP<130. Do not take prior to sleeping aspirin 81 MG EC tablet Take 1 tablet (81 mg) by mouth every morning. Hold until follow up with PCPafter hospital stay atorvastatin (LIPITOR) 80 MG tablet Take 1 tablet (80 mg) by mouth every evening 90 tablet 0 cefdinir (OMNICEF) 300 MG capsule Take 1 capsule (300 mg) by mouth 2 times daily for 11 days. Do not start before June 12, 2024. 22 capsule 0 cyanocobalamin (CYANOCOBALAMIN) 1000 MCG/ML injection Inject 1 mL into the muscle every 30 days disulfiram (ANTABUSE) 250 MG tablet Take 1 tablet (250 mg) by mouth daily 90 tablet 0 donepezil (ARICEPT) 5 MG tablet Take 2 tablets (10 mg) by mouth at bedtime. escitalopram (LEXAPRO) 20 MG tablet Take 60 mg by mouth every evening melatonin 3 MG tablet Take 1 tablet (3 mg) by mouth nightly as needed for sleep Multiple Vitamins-Iron (TAB-A-CATRACHO/IRON) TABS Take 1 capsule by mouth daily 100 tablet 3 phenylephrine (LEATHA-SYNEPHRINE) 1 % nasal spray Mott 1 drop into both nostrils daily as needed for congestion tamsulosin (FLOMAX) 0.4 MG capsule Take 0.8 mg by mouth every evening thiamine (B-1) 100 MG tablet Take 100 mg by mouth every evening Allergies: Allergies Allergen Reactions Donepezil Diarrhea Hospitalized for diarrhea/dehydration Sulfa Antibiotics Rash Family History: noncontributory Social History: Review of Systems: Comprehensive greater than 10 point review systems otherwise negative besides that detailed above Physical exam: BP (!) 149/82 Pulse 79 Temp 98.2 ??F (36.8 ??C) Resp 15 SpO2 99% PSYCH: pleasant, oriented, No acute distress. HEART: Normal S1, S2 with no edema. LUNGS: Clear to auscultation, normal Respiratory effort. ABDOMEN: Soft, no hepatosplenomegaly, normal bowel sounds. SKIN: Dry to touch, No rash. Pertinent laboratory and imaging data reviewed above in HPI Impression: 68 year old male with a history of mild cognitive impairment, chronic kidney disease, postural hypotension, hyperlipidemia, prediabetes, cerebrovascular disease who presents with diarrhea The patient was discharged home yesterday after being hospitalized 06/08/2024 through 06/12/2024 for urosepsis and nephrolithiasis. Ureteral stent was placed that admission. Blood and urine cx from that admit grew Klebsiella (jensen-sens to all antibiotics besides ampicillin). Pt was treated with Rocephin while hospitalized and discharged on Omnicef Hospital course was c/b diarrhea and ARF on CKD. Cdiff and stool panel for bacteria/virus on 06/10 was neg Since discharge yesterday he has had worsening diarrhea. He has had worsening generalized weakness Vital signs on presentation to the ER included systolic blood pressure 135, heart rate near 70, no fever, no hypoxia Labs notable for white blood cell count of 12.6. Lactic acid normal. Creatinine 1.7. Urinalysis shows greater than 182 white blood cells and greater than 182 red blood cells with large leukocyte esterase Imaging included CT scan showing no acute findings. Abdominopelvic CT scan shows enlarged left kidney with patchy areas of decreased cortical enhancement consistent with pyelonephritis. Appropriatelypositioned right nephroureteral stent. Mild mucosal enhancement of the colon distal colon wall thickening consistent with diarrheal illness/colitis I spoke to the ER provider. Patient will be admitted to observation 1. Recent hospitalization 06/08/2024 through 06/12/2024 for urosepsis -Patient had ureteral stent placed on 06/09 -Blood and urine cultures grew Klebsiella, resistant to ampicillin but sensitive to all other antibiotics -Patient was treated IV Rocephin while hospitalized and discharged on Omnicef -Will resume IV Rocephin -No clinical evidence of recurrence of sepsis or lack of response to antibiotics at this time 2. Diarrhea -This was an issue during his recent hospital stay -Stool studies including C. difficile and stool virus/bacteria panels were negative on 06/10 -Imodium prn ordered -Diarrhea likely exacerbated by antibiotics 3. Acute renal failure on chronic kidney disease -Improving -Creatinine 1.7 today, was 1.8 yesterday and 2.8 on 06/08/24 -Administer IV fluids overnight -Baseline creatinine appears to be near 1.2 historically 4. History of postural hypotension -On midodrine 5. Chronic dizziness/lightheadedness with fall/near syncopal event today - head CT neg - no injuries reported - PT consult 6. History of alcohol abuse -On Antabuse Observation admission CODE STATUS: Full code documented in this encounter Consult Notes * Maru Doan RN - 06/14/2024 2:09 PM CDTAssociated Order(s): CARE MANAGEMENT / SOCIAL WORK IP CONSULT Care Management Initial Consult General Information Assessment completed with: Patient, Spouse or significant other, Type of CM/SW Visit: Initial Assessment Primary Care Provider verified and updated as needed: Readmission within the last 30 days: Reason for Consult: discharge planning Advance Care Planning: Communication Assessment Patient's communication style: spoken language (Trinidadian or Bilingual) Hearing Difficulty or Deaf: yes Wear Glasses or Blind: yes Cognitive Cognitive/Neuro/Behavioral: WDL Arousal Level: opens eyes spontaneously Orientation: oriented x 4 Mood/Behavior: hypoactive (quiet, withdrawn), calm Best Language: 0 - No aphasia Speech: clear, spontaneous Living Environment: People in home: spouse, child(debbie), adult Current living Arrangements: house Able to return to prior arrangements: yes Family/Social Support: Care provided by: self, spouse/significant other Provides care for: no one, unable/limited ability to care for self Marital Status: , Children Description of Support System: Supportive, Involved Current Resources: Patient receiving home care services: Yes Skilled Home Care Services: Physical Therapy Community Resources: Equipment currently used at home: none Supplies currently used at home: Employment/Financial: Employment Status: Financial Concerns: Does the patient's insurance plan have a 3 day qualifying hospital stay waiver? No Patient had qualifying 3 day inpatient stay from 06/09-06/12 Lifestyle & Psychosocial Needs: Social Determinants of Health Food Insecurity: Low Risk (06/14/2024) Food Insecurity Within the past 12 months, did you worry that your food would run out before you got money to buy more?: No Within the past 12 months, did the food you bought just not last and you didn???t have money to getmore?: No Depression: Not at risk (08/07/2022) PHQ-2 PHQ-2 Score: 1 Housing Stability: Low Risk (06/14/2024) Housing Stability Do you have housing? : Yes Are you worried about losing your housing?: No Tobacco Use: Medium Risk (06/09/2024) Patient History Smoking Tobacco Use: Former Smokeless Tobacco Use: Never Passive Exposure: Past Financial Resource Strain: Low Risk (06/14/2024) Financial Resource Strain Within the past 12 months, have you or your family members you live with been unable to get utilities (heat, electricity) when it was really needed?: No Alcohol Use: Not on file Transportation Needs: Low Risk (06/14/2024) Transportation Needs Within the past 12 months, has lack of transportation kept you from medical appointments, getting your medicines, non-medical meetings or appointments, work, or from getting things that you need?: No Physical Activity: Not on file Interpersonal Safety: Low Risk (06/09/2024) Interpersonal Safety Do you feel physically and emotionally safe where you currently live?: Yes Within the past 12 months, have you been hit, slapped, kicked or otherwise physically hurt by someone?: No Within the past 12 months, have you been humiliated or emotionally abused in other ways by your partner or ex-partner?: No Stress: Not on file Social Connections: Not on file Health Literacy: Not on file Functional Status: Prior to admission patient needed assistance: Dependent ADLs:: Independent Dependent IADLs:: Cleaning, Cooking, Laundry, Shopping, Transportation, Meal Preparation Additional Information: URR 29% Patient discharged after several day inpatient stay on 06/12. Admitted now with worsening diarrhea and generalized weakness. At baseline patient lives with his spouse and daughter who lives with them part- time. Prior to lastadmit patient was independent with mobility and some ADLs and IADLs. Spouse and daughter do help with cooking,cleaning, laundry, meal prep and transportation. Spouse does work almost oncology nurse and there are times if daughter is out of town he is home independently. Currently patient is below his independent baseline and PT recommendations are for TCU. Contacted spouse Porsche to discuss discharge plans. She is in agreement to TCU but would prefer not [facility]. She would like referrals sent to [facility], [facility] and [facility] as they live in [place]. Currently patient is observation status but did have a qualifying inpatient stay last admission. CM will continue to follow for discharge planning. Maru Doan CONSULTING HR PROFESSIONAL [employer] System Administration Manager [facility] [phone] documented in this encounter ED Notes * Alessia Oneill RN - 06/13/2024 10:35 PM CDT [facility] ED Nurse Handoff Report ED Chief complaint: Syncope . ED Diagnosis: Final diagnoses: Pyelonephritis, acute Syncope, unspecified syncope type Diarrhea, unspecified type Allergies: Allergies Allergen Reactions Donepezil Diarrhea Hospitalized for diarrhea/dehydration Sulfa Antibiotics Rash Code Status: Full Code Activity level - Baseline/Home: assist of 1. Activity Level - Current: assist of 1. Lift room needed: No. Bariatric: No Patrol Agent Needed: No Isolation: No. Infection: Not Applicable. Respiratory status: Room air Vital Signs (within 30 minutes): Vitals: 06/13/24199906/13/24202906/13/24203606/13/242037 BP: 137/68 94/50 (!) 149/82 (!) 149/82 Pulse: 70 81 80 79 Resp: 12 25 13 15 Temp: SpO2: 98% 99% Cardiac Rhythm: , Cardiac Cardiac Rhythm: Normal sinus rhythm Pain level: Patient confused: No. Patient Falls Risk: bed/chair alarm on, nonskid shoes/slippers when out of bed, patient and family education, assistive device/personal items within reach, and activity supervised. Elimination Status: Has voided Patient Report - Initial Complaint: BIBA: pt was discharged yesterday from a hospital stay for the past 5 days for kidney stones. Stent was placed 5 days ago and removed yesterday. During hospital stay, pt started to have diarrhea. Pt continues to have diarrhea and incontinence B&B at home. was helping pt out of bed. Pt got wobbly and dizzy, then had a syncopal episode. Per pt was un responsive for a few seconds and hit head. EMS was called. EMS was unable to find a head injury. Onroute to hospital, VSS on RA. BS 101. NS rhythm. Chronic dizziness. Daughter and wanted pt to come to hospital but pt didn't want to come back. Focused Assessment: A&Ox4. VSS on RA. Incontinent to bowels. Continent of urine. C/O dizziness intermittently. Abnormal Results: Labs Ordered and Resulted from Time of ED Arrival to Time of ED Departure COMPREHENSIVE METABOLIC PANEL - Abnormal Result Value Sodium 141 Potassium 3.4 Carbon Dioxide (CO2) 17 (*) Anion Gap 15 Urea Nitrogen 21.6 Creatinine 1.68 (*) GFR Estimate 44 (*) Calcium 9.2 Chloride 109 (*) Glucose 94 Alkaline Phosphatase 102 AST 25 ALT 39 Protein Total 6.3 (*) Albumin 3.2 (*) Bilirubin Total 0.4 ROUTINE UA WITH MICROSCOPIC REFLEX TO CULTURE - Abnormal Color Urine [place] (*) Appearance Urine Slightly Cloudy (*) Glucose Urine Negative Bilirubin Urine Negative Ketones Urine 10 (*) Specific [place] Urine 1.016 Blood Urine Large (*) pH Urine 6.0 Protein Albumin Urine 100 (*) Urobilinogen Urine Normal Nitrite Urine Negative Leukocyte Esterase Urine Large (*) Mucus Urine Present (*) RBC Urine >182 (*) WBC Urine >182 (*) CBC WITH PLATELETS AND DIFFERENTIAL - Abnormal WBC Count 12.6 (*) RBC Count 4.00 (*) Hemoglobin 11.8 (*) Hematocrit 36.2 (*) MCV 91 MCH 29.5 MCHC 32.6 RDW 14.0 Platelet Count 186 % Neutrophils 71 % Lymphocytes 13 % Monocytes 9 % Eosinophils 2 % Basophils 1 % Immature Granulocytes 5 NRBCs per 100 WBC 0 Absolute Neutrophils 8.9 (*) Absolute Lymphocytes 1.6 Absolute Monocytes 1.2 Absolute Eosinophils 0.3 Absolute Basophils 0.1 Absolute Immature Granulocytes 0.7 (*) Absolute NRBCs 0.0 ISTAT GASES LACTATE VENOUS POCT - Abnormal Lactic Acid POCT 0.6 Bicarbonate Venous POCT 20 (*) O2 Sat, Venous POCT 41 (*) pCO2 Venous POCT 34 (*) pH Venous POCT 7.37 pO2 Venous POCT 24 (*) MAGNESIUM - Normal Magnesium 2.1 ISTAT GASES LACTATE VENOUS POCT URINE CULTURE CT Abdomen Pelvis w Contrast Final Result IMPRESSION: 1. Enlarged left kidney with patchy areas of decreased cortical enhancement consistent with pyelonephritis. 2. Appropriately positioned right nephroureteral stent. Bilateral nonobstructive nephrolithiasis. 3. Diffuse bladder wall thickening consistent with cystitis. 4. Mild mucosal hyperenhancement of the colon and distal colon wall thickening consistent with diarrheal illness/colitis. Head CT w/o contrast Final Result IMPRESSION: 1. No CT evidence for acute intracranial process. 2. Brain atrophy, chronic infarcts, and presumed chronic microvascular ischemic changes as above. Treatments provided: see imaging, labs, MAR Family Comments: with pt OBS brochure/video discussed/provided to patient: Yes ED Medications: Medications levofloxacin (LEVAQUIN) infusion 750 mg (has no administration in time range) sodium chloride 0.9% BOLUS 1,000 mL (0 mLs Intravenous Stopped 06/13/242045) iopamidol (ISOVUE-370) solution 81 mL (81 mLs Intravenous $Given 06/13/242106) sodium chloride 0.9 % bag 500mL for CT scan flush use (60 mLs Intravenous $Given 06/13/242107) Drips infusing: No For the majority of the shift this patient was Green. Interventions performed were n/a. Sepsis treatment initiated: No Cares/treatment/interventions/medications to be completed following ED care: see in-pt orders ED Nurse Name: Nani Burris RN 10:35 PM RECEIVING UNIT ED HANDOFF REVIEW Above ED Nurse Handoff Report was reviewed: Yes Reviewed by: Alessia Oneill RN on June 13, 2024 at 11:36 PM I Isaak called the ED to inform them the note was read: Yes * Abimael Higuera DO - 06/13/2024 10:09 PM CDT ED APC SUPERVISION NOTE: I evaluated this patient in conjunction with Diane Dixon PA-C I have participated in the care of the patient and personally performed manning elements of the history, exam, and medical decision making. HPI: Jed Alamo is a 68 year old male presents to the emergency department for syncopal episode. Patient recently discharged from hospital for urosepsis with nephrolithiasis and bacteremia with Klebsiella pneumoniae. Patient reports that today, he felt lightheaded dizzy and reports a near syncopal episode in which he fell at the end of his bed. Patient denies true loss of consciousness and no he ad injury, but patient reports that his refutes these claims and feels that he actually struckhis head and had a true syncopal episode. Patient is also continuing to have diarrheal illness, that is mostly liquid, but feels that it has slowed down since hospitalization. Patient denies any fever, rhinorrhea, congestion, cough, chest pain, shortness of breath, abdominal pain, flank pain, dysuria, or black or bloody stools. He does endorse 1 day history of hematuria. Independent Historian: None Review of External Notes: Discharge summary from yesterday. EXAM: Constitutional: General: Not in acute distress. Appearance: Normal appearance. HENT: Head: Normocephalic and atraumatic. Eyes: Extraocular Movements: Extraocular movements intact. Conjunctiva/sclera: Conjunctivae normal. Cardiovascular: Rate and Rhythm: Normal rate and regular rhythm. Pulmonary: Effort: Pulmonary effort is normal. No respiratory distress. Breath sounds: Normal breath sounds. Abdominal: General: Abdomen is flat. There is no distension. Palpations: Abdomen is soft. Tenderness: There is no abdominal tenderness. No CVA tenderness to palpation. Musculoskeletal: Cervical back: Normal range of motion. No rigidity. Right lower leg: No edema. Left lower leg: No edema. Skin: General: Skin is warm and dry. Neurological: General: No focal deficit present. Mental Status: Alert and oriented to person, place, and time. Psychiatric: Mood and Affect: Mood normal. Behavior: Behavior normal. Independent Interpretation (X-rays, CTs, rhythm strip): None Consultations/Discussion of Management or Tests: Please refer to PAAntonC full note for details. Social Determinants of Health affecting care: None MEDICAL DECISION MAKING/ASSESSMENT AND PLAN: 68-year-old male as described above presents to the emergency department with reported syncopal fall. Patient is poor historian. Patient reports that he had near syncopal episode, but who witnessed the fall reports true syncope. Patient recently discharged from the hospital for urosepsis/Klebsiella bacteremia. Head to toe examination does not yield any clear traumatic findings. Patient received CT head imaging ordered by MACIEL given reported head injury and associated syncope. No acute findings on CT head. CBC today however demonstrates new worsening leukocytosis of 12.6. Patient does report new hematuria today which is reflected on urine analysis. Renal function near baseline. CT abdomen pelvis with contrast was ordered by MACIEL given new leukocytosis and urinary changes for evaluation for stent function versus new infection. This ultimately demonstrated new left-sided pyelonephritis. As result, in conjunction with near syncope, patient is admitted to hospitalist service for further management. Discussed care plan with patient who voiced understanding and agreement with plan. Answered all questions. Additional workup and orders as listed in chart. Please refer to MACIEL full note for details. DIAGNOSIS: ICD-10-CM 1. Pyelonephritis, acute N10 2. Syncope, unspecified syncope type R55 3. Diarrhea, unspecified type R19.7 DISPOSITION: Admit ABIMAEL HIGUERA DO 06/13/2024 [facility] EMERGENCY DEPT Abimael Higuera DO 06/14/24 0104 * Nazanin Snyder - 06/13/2024 9:40 PM CDT Walked patient approx. 50 feet. Patient was steady on his feet and states his dizziness is better but not completely gone. * Nazanin Snyder - 06/13/2024 8:40 PM CDT Patient incontinent to stool and seemed unaware that he was. Chux, sheets, and depends changed. * Nani Burris RN - 06/13/2024 6:08 PM CDT BIBA: pt was discharged yesterday from a hospital stay for the past 5 days for kidney stones. Stentwas placed 5 days ago and removed yesterday. During hospital stay, pt started to have diarrhea. Pt continues to have diarrhea and incontinence B&B at home. was helping pt out of bed. Pt got wobbly and dizzy, then had a syncopal episode. Per pt was unresponsive for a few seconds and hit head. EMS was called. EMS was unable to find a head injury. On route to hospital, VSS on RA. BS 101. NS rhythm. Chronic dizziness. Daughter and wanted pt to come to hospital but pt didn't want to come back. Triage Assessment (Adult) Row Name 06/13/24 1808 Triage Assessment Airway WDL WDL Respiratory WDL Respiratory WDL WDL Skin Circulation/Temperature WDL Skin Circulation/Temperature WDL WDL Cardiac WDL Cardiac WDL WDL Cardiac Rhythm NSR Peripheral/Neurovascular WDL Peripheral Neurovascular WDL WDL Cognitive/Neuro/Behavioral WDL Cognitive/Neuro/Behavioral WDL WDL * Diane Dixon PA-C - 06/13/2024 6:06 PM CDT Emergency Department Note History of Present Illness Chief Complaint Syncope HPI Jed Alamo is a 68 year old male who presents to the ED for evaluation of syncope. Patient came via EMS. He was discharged from this hospital yesterday. He deals with chronic lightheadedness/faintness. He stood up at the bedside and reportedly lost consciousness. reports he hit his head and was unconscious for a few seconds. He was able to ambulate after fainting. He denies history of fainting. He denies feeling dizzy currently. He denies chest pain, shortness of breath, palpitations, abdominal pain, nausea, vomiting, headache, vision changes, back pain, fevers, chills. He has had some diarrhea since and urinary incontinence since being discharged. History of alcoholism but last drink was 2 years ago. He denies numbness or weakness in any of his extremities. Denies difficulty swallowing or speaking.He does feel anxious which he reports a history of; he is worried about what may be wrong with his health. No other physical complaints. Reports he has been taking his midodrine for postural hypotension. One dose of Cefdinir this morning. Independent Historian and Daughter as detailed above. Review of External Notes I reviewed his discharge summary from yesterday from [facility]. He was hospitalized for Urosepsiswith nephrolithiasis, bacteremia with klebsiella pneumoniae, and acute on chronic kidney disease. Urology placed stent 06/09/24 and removed 06/11/24. Cefdinir BID for 11 days. near baseline but still weaker than usual and generally tired Reviewed stool studies from 06/10/24- enteric bacteria/virus panel and C. Dif negative. Past Medical History Medical History and Problem List Past Medical History: Diagnosis Date ALCOHOL ABUSE, IN REMISSION Arthritis Chronic kidney disease Eczema ED (erectile dysfunction) HTN (hypertension), benign 2003 Hyperlipidemia 2005 Prediabetes 2008 Medications aspirin 81 MG EC tablet atorvastatin (LIPITOR) 80 MG tablet cefdinir (OMNICEF) 300 MG capsule cyanocobalamin (CYANOCOBALAMIN) 1000 MCG/ML injection disulfiram (ANTABUSE) 250 MG tablet donepezil (ARICEPT) 5 MG tablet escitalopram (LEXAPRO) 20 MG tablet melatonin 3 MG tablet midodrine (PROAMATINE) 2.5 MG tablet Multiple Vitamins-Iron (TAB-A-CATRACHO/IRON) TABS phenylephrine (LEATHA-SYNEPHRINE) 1 % nasal spray tamsulosin (FLOMAX) 0.4 MG capsule thiamine (B-1) 100 MG tablet Surgical History Past Surgical History: Procedure Laterality Date CYSTOSCOPY, RETROGRADES, INSERT STENT URETER(S), COMBINED Right 06/09/2024 Procedure: Cystoscopy, right retrograde pyelogram, interpretation of fluoroscopic images. Right ureteral stent placement; Surgeon: Kory Mcclure MD; Location: [facility] OR REMOVE TONSILS/ADENOIDS,<12 Y/O [facility] ARTHROTOMY W/OPEN MENISCUS REPAIR 2007 right -TRIA Physical Exam Patient Vitals for the past 24 hrs: BP Temp Temp src Pulse Resp SpO2 Height Weight 06/14/24 0010 (!) 168/73 98.6 ??F (37 ??C) Oral 67 18 -- 1.803 m (5' 11) 72 kg (158 lb 11.2 oz) 06/13/24 2352 -- -- -- -- -- 97 % -- -- 06/13/24 2310 127/58 -- -- -- -- 99 % -- -- 08/25/24 2140 (!) 143/73 -- -- -- -- -- -- -- 06/13/242037 (!) 149/82 -- -- 79 15 99 % -- -- 06/13/242036 (!) 149/82 -- -- 80 13 -- -- -- 06/13/242029 94/50 -- -- 81 25 -- -- -- 06/13/241999 137/68 -- -- 70 12 98 % -- -- 06/13/241929 137/57 -- -- 69 15 98 % -- -- 06/13/241916 111/59 -- -- 63 -- 98 % -- -- 06/13/241806 135/68 98.2 ??F (36.8 ??C) -- 72 16 98 % -- -- 06/13/241802 135/68 -- -- 72 -- -- -- -- Physical Exam Vital signs and nursing notes reviewed. General: Alert and oriented, mildly distressed. Ill-appearing. Resting on bed with at bedside. Skin: Skin is warm and dry. Pale HEENT: Head: Normocephalic, atraumatic. Facial features symmetric. Eyes: Conjunctiva pink, sclera white. EOMs grossly intact. Ears: Auricles without lesion, erythema, or edema. Nose: Symmetric with no discharge. Mouth and throat: Lips are moist with no lesions or edema tongue is dry. [place]/black discoloration from Pepto bismol Neck: Normal range of motion. No midline tenderness to palpation or pain in the midline with ROM CV: Heart RRR. 2+ radial and tibialis posterior pulses bilaterally. No peripheral edema. Pulm/Chest: Chest wall expansion symmetric with no increased effort of breathing. Lungs clear and equal to auscultation bilaterally. Abd: Abdomen is soft and nontender to palpation in all 4 quadrants with no guarding or rebound. M/S: Moves all extremities spontaneously. Psych: Mildly anxious mood and affect. Behavior is normal. Neuro: Alert. Sensation intact in all 4 extremities. Cranial nerves II-XII intact. Normal [id number], visual cai intact by confrontation. Diagnostics Lab Results Labs Ordered and Resulted from Time of ED Arrival to Time of ED Departure COMPREHENSIVE METABOLIC PANEL - Abnormal Result Value Sodium 141 Potassium 3.4 Carbon Dioxide (CO2) 17 (*) Anion Gap 15 Urea Nitrogen 21.6 Creatinine 1.68 (*) GFR Estimate 44 (*) Calcium 9.2 Chloride 109 (*) Glucose 94 Alkaline Phosphatase 102 AST 25 ALT 39 Protein Total 6.3 (*) Albumin 3.2 (*) Bilirubin Total 0.4 ROUTINE UA WITH MICROSCOPIC REFLEX TO CULTURE - Abnormal Color Urine [place] (*) Appearance Urine Slightly Cloudy (*) Glucose Urine Negative Bilirubin Urine Negative Ketones Urine 10 (*) Specific [place] Urine 1.016 Blood Urine Large (*) pH Urine 6.0 Protein Albumin Urine 100 (*) Urobilinogen Urine Normal Nitrite Urine Negative Leukocyte Esterase Urine Large (*) Mucus Urine Present (*) RBC Urine >182 (*) WBC Urine >182 (*) CBC WITH PLATELETS AND DIFFERENTIAL - Abnormal WBC Count 12.6 (*) RBC Count 4.00 (*) Hemoglobin 11.8 (*) Hematocrit 36.2 (*) MCV 91 MCH 29.5 MCHC 32.6 RDW 14.0 Platelet Count 186 % Neutrophils 71 % Lymphocytes 13 % Monocytes 9 % Eosinophils 2 % Basophils 1 % Immature Granulocytes 5 NRBCs per 100 WBC 0 Absolute Neutrophils 8.9 (*) Absolute Lymphocytes 1.6 Absolute Monocytes 1.2 Absolute Eosinophils 0.3 Absolute Basophils 0.1 Absolute Immature Granulocytes 0.7 (*) Absolute NRBCs 0.0 ISTAT GASES LACTATE VENOUS POCT - Abnormal Lactic Acid POCT 0.6 Bicarbonate Venous POCT 20 (*) O2 Sat, Venous POCT 41 (*) pCO2 Venous POCT 34 (*) pH Venous POCT 7.37 pO2 Venous POCT 24 (*) MAGNESIUM - Normal Magnesium 2.1 ISTAT GASES LACTATE VENOUS POCT URINE CULTURE Imaging CT Abdomen Pelvis w Contrast Final Result IMPRESSION: 1. Enlarged left kidney with patchy areas of decreased cortical enhancement consistent with pyelonephritis. 2. Appropriately positioned right nephroureteral stent. Bilateral nonobstructive nephrolithiasis. 3. Diffuse bladder wall thickening consistent with cystitis. 4. Mild mucosal hyperenhancement of the colon and distal colon wall thickening consistent with diarrheal illness/colitis. Head CT w/o contrast Final Result IMPRESSION: 1. No CT evidence for acute intracranial process. 2. Brain atrophy, chronic infarcts, and presumed chronic microvascular ischemic changes as above. EKG ECG results from 06/13/24 EKG 12-lead, tracing only Value Systolic Blood Pressure Diastolic Blood Pressure Ventricular Rate 77 Atrial Rate 77 ID Interval 154 QRS Duration 92 QT 408 QTc 461 P Burton 63 R AXIS 56 T Burton 66 Interpretation ECG Sinus rhythm Nonspecific T wave abnormality Prolonged QT Abnormal ECG When compared with ECG of 08-Jun-2024 20:08, Vent. rate has decreased by 44 bpm T wave inversion now evident in Anterior leads Independent Interpretation None ED Course Medications Administered Medications - No data to display Procedures Procedures Discussion of Management/ED Course ED Course as of 06/14/24 0037 Rossy Jun 13, [id number] I initially assessed the patient and obtained the above history and physical exam. 1836 I reassessed the patient and updated them on results and plan of care. Spoke with 2001 I reassessed the patient and updated them on results and plan of care. Patient hungry and wants to try something to eat 2042 I spoke with [facility]rology 2126 I reassessed the patient and updated them on results and plan of care. [address] King, hospitalist, regarding patient's presentation, findings, and plan ofcare. Additional Documentation None Medical Decision Making / Diagnosis [facility] Diagnoses: None MIPS None MDM Jed Alamo is a 68 year old male who presents to the ED for evaluation after syncope. He wasrecently hospitalized and recently underwent cystoscopy with right ureteral stent placement. He hasbeen on Cefdinir orally and continues to have severe diarrhea. See HPI. Vital signs stable. On examhe is pale and ill appearing. His abdomen is benign. No obvious head trauma on exam, but given reported head strike with syncope, head CT was obtained and is fortunately negative for acute intracranial hemorrhage. C-spine clinically cleared. EKG without ischemia or sinister arrhythmia. Patient has chronic lightheadedness and faintness, suspect orthostatic postural hypotension as well as component of dehydration from diarrhea as etiology of syncope. No cardiac murmur or evidence of CHF. CBC does reveal leukocytosis of 12.6, increased from prior discharge from hospital. Creatinine is stable. Urine is no longer nitrite positive but is otherwise still infectious appearing with leukocyte esterase, pyuria, hematuria. Lactic is normal, no evidence of severe sepsis or septic shock. [place] urology was consulted who recommends antibiotic change. Obtained abd CT to rule out abscess, stent issue, occult infection, etc. This reveals Pyelonephritis, cystitis, and colitis. Stool studies obtained 3 days ago were negative for C.diff. Patient continues to feel weak. After shared decision making with , they feel most comfortable he come in to the hospital for further cares. Dr. King graciously accepted the patient and will oversee ongoing evaluation and management. I staffed this patient with Dr. Higuera who agrees with the above assessment and plan. Disposition The patient was admitted to the hospital. Diagnosis ICD-10-CM 1. Pyelonephritis, acute N10 2. Syncope, unspecified syncope type R55 3. Diarrhea, unspecified type R19.7 Discharge Medications New Prescriptions No medications on file Diane Dixon PA-C on 06/14/2024 at 12:47 AM Diane Dixon PA-C 06/14/24 0047 * Katiana Simons RN - 06/13/2024 6:01 PM CDT Bed: [facility] Expected date: Expected time: Means of arrival: Comments: 68. M. Syncopal. documented in this encounter Miscellaneous Notes * Plan of Care - Grady Dodd RN - 06/15/2024 10:56 PM CDT Assessments: Alert, forgetful, flat affect. Incontinent of bowel and bladder. Denies pain. No SOB. No n/v, tolerated diet. Treatment Plan: IV rocephin, Encourage ambulation/activity. PT, discharge to TCU pending Bedside Nurse: Grady Dodd RN Problem: Adult Inpatient Plan of Care Goal: Plan of Care Review Description: The Plan of Care Review/Shift note should be completed every shift. The Outcome Evaluation is a brief statement about your assessment that the patient is improving, declining, or no change. This information will be displayed automatically on your shift note. Outcome: Not Progressing Flowsheets (Taken 06/15/2024 2600) Outcome Evaluation: flat affect, incontinent of bowel and bladder Plan of Care Reviewed With: patient spouse Overall Patient Progress: improving Goal: Patient-Specific Goal (Individualized) Description: You can add care plan individualizations to a care plan. Examples of Individualizationmight be: Parent requests to be called daily at 9am for status, I have a hard time hearing out of my right ear, or Do not touch me to wake me up as it startles me. Outcome: Not Progressing Goal: Absence of Hospital-Acquired Illness or Injury Outcome: Not Progressing Intervention: Identify and Manage Fall Risk Recent Flowsheet Documentation Taken 06/15/2024 164 by Grady Dodd RN Safety Promotion/Fall Prevention: assistive device/personal items within reach safety round/check completed activity supervised nonskid shoes/slippers when out of bed room near nurse's station Intervention: Prevent and Manage VTE (Venous Thromboembolism) Risk Recent Flowsheet Documentation Taken 06/15/2024 164 by Grady Dodd RN VTE Prevention/Management: SCDs off (sequential compression devices) Goal: Optimal Comfort and Wellbeing Outcome: Not Progressing Goal: Readiness for Transition of Care Outcome: Not Progressing Problem: Pain Acute Goal: Optimal Pain Control and Function Outcome: Not Progressing Intervention: Prevent or Manage Pain Recent Flowsheet Documentation Taken 06/15/2024 164 by Grday Dodd RN Medication Review/Management: medications reviewed Problem: Skin Injury Risk Increased Goal: Skin Health and Integrity Outcome: Not Progressing Intervention: Plan: Nurse Driven Intervention: Moisture Management Recent Flowsheet Documentation Taken 06/15/2024 164 by Grady Dodd RN Moisture Interventions: Encourage regular toileting Intervention: Optimize Skin Protection Recent Flowsheet Documentation Taken 06/15/2024 1645 by Grady Dodd RN Activity Management: activity adjusted per tolerance Problem: Chronic Kidney Disease Goal: Optimal Coping with Chronic Illness Outcome: Not Progressing Goal: Electrolyte Balance Outcome: Not Progressing Goal: Fluid Balance Outcome: Not Progressing Goal: Optimal Functional Ability Outcome: Not Progressing Intervention: Optimize Functional Ability Recent Flowsheet Documentation Taken 06/15/2024 1645 by Grady Dodd RN Activity Management: activity adjusted per tolerance Goal: Absence of Anemia Signs and Symptoms Outcome: Not Progressing Goal: Optimal Oral Intake Outcome: Not Progressing Goal: Acceptable Pain Control Outcome: Not Progressing Goal: Minimize Renal Failure Effects Outcome: Not Progressing Intervention: Monitor and Support Renal Function Recent Flowsheet Documentation Taken 06/15/2024 1645 by Grady Dodd RN Medication Review/Management: medications reviewed Problem: Comorbidity Management Goal: Blood Pressure in Desired Range Outcome: Not Progressing Intervention: Maintain Blood Pressure Management Recent Flowsheet Documentation Taken 06/15/2024 1645 by Grady Dodd RN Medication Review/Management: medications reviewed Problem: Syncope Goal: Absence of Syncopal Symptoms Outcome: Not Progressing Intervention: Manage Effect of Syncopal Symptoms Recent Flowsheet Documentation Taken 06/15/2024 1645 by Grady Dodd RN Safety Promotion/Fall Prevention: assistive device/personal items within reach safety round/check completed activity supervised nonskid shoes/slippers when out of bed room near nurse's station Goal Outcome Evaluation: Plan of Care Reviewed With: patient, spouse Overall Patient Progress: improving Outcome Evaluation: flat affect, incontinent of bowel and bladder * Plan of Care - Sari Washington RN - 06/15/2024 2:28 PM CDT End of Shift Summary For vital signs and complete assessments, please see documentation flowsheets. Pertinent assessments: A&Ox4, flat affect. Incontinent of bowel and bladder x2 episodes of diarrhea this shift. No c/o pain. Some dyspnea noted on exertion. Ambulated in [place] with PT. Poor appetite, ate breakfast. Major Shift Events: none Treatment Plan: IV rocephin, Encourage mobility, work with PT, discharge to TCU when medically stable. Problem: Adult Inpatient Plan of Care Goal: Plan of Care Review Description: The Plan of Care Review/Shift note should be completed every shift. The Outcome Evaluation is a brief statement about your assessment that the patient is improving, declining, or no change. This information will be displayed automatically on your shift note. Outcome: Not Progressing Flowsheets (Taken 06/15/2024 1428) Outcome Evaluation: Incontinent of bowel and bladder. Refusing lunch Plan of Care Reviewed With: patient spouse Overall Patient Progress: no change Goal: Patient-Specific Goal (Individualized) Description: You can add care plan individualizations to a care plan. Examples of Individualizationmight be: Parent requests to be called daily at 9am for status, I have a hard time hearing out of my right ear, or Do not touch me to wake me up as it startles me. Outcome: Not Progressing Goal: Absence of Hospital-Acquired Illness or Injury Outcome: Not Progressing Intervention: Identify and Manage Fall Risk Recent Flowsheet Documentation Taken 06/15/2024929 by Sari Washington RN Safety Promotion/Fall Prevention: activity supervised assistive device/personal items within reach Intervention: Prevent and Manage VTE (Venous Thromboembolism) Risk Recent Flowsheet Documentation Taken 06/15/2024929 by Sari Washington RN VTE Prevention/Management: SCDs off (sequential compression devices) Goal: Optimal Comfort and Wellbeing Outcome: Not Progressing Goal: Readiness for Transition of Care Outcome: Not Progressing Problem: Pain Acute Goal: Optimal Pain Control and Function Outcome: Not Progressing Intervention: Prevent or Manage Pain Recent Flowsheet Documentation Taken 06/15/2024929 by Sari Washington RN Medication Review/Management: medications reviewed Problem: Skin Injury Risk Increased Goal: Skin Health and Integrity Outcome: Not Progressing Problem: Chronic Kidney Disease Goal: Optimal Coping with Chronic Illness Outcome: Not Progressing Goal: Electrolyte Balance Outcome: Not Progressing Goal: Fluid Balance Outcome: Not Progressing Goal: Optimal Functional Ability Outcome: Not Progressing Goal: Absence of Anemia Signs and Symptoms Outcome: Not Progressing Goal: Optimal Oral Intake Outcome: Not Progressing Goal: Acceptable Pain Control Outcome: Not Progressing Goal: Minimize Renal Failure Effects Outcome: Not Progressing Intervention: Monitor and Support Renal Function Recent Flowsheet Documentation Taken 06/15/2024929 by Sari Washington RN Medication Review/Management: medications reviewed Problem: Syncope Goal: Absence of Syncopal Symptoms Outcome: Not Progressing Intervention: Manage Effect of Syncopal Symptoms Recent Flowsheet Documentation Taken 06/15/2024929 by Sari Washington RN Safety Promotion/Fall Prevention: activity supervised assistive device/personal items within reach Problem: Syncope Goal: Absence of Syncopal Symptoms Intervention: Manage Effect of Syncopal Symptoms Recent Flowsheet Documentation Taken 06/15/2024929 by Sari Washington RN Safety Promotion/Fall Prevention: activity supervised assistive device/personal items within reach Goal Outcome Evaluation: Plan of Care Reviewed With: patient, spouse Overall Patient Progress: no changeOverall Patient Progress: no change Outcome Evaluation: Incontinent of bowel and bladder. Refusing lunch * Plan of Care - Mia Frank RN - 06/15/2024 6:06 AM CDT Goal Outcome Evaluation: Plan of Care Reviewed With: patient Overall Patient Progress: improvingOverall Patient Progress: improving Outcome Evaluation: VSS except for elevated BP, IV fluids infusing, denies pain and nausea. No loose stool on this shift. To Do: End of Shift Summary For vital signs and complete assessments, please see documentation flowsheets. Pertinent assessments: Assumed care of patient @ [id number]. Pt A&O x 4, VSS on RA, except elevated BP. Denies pain and nausea. Up Ax1 with GB and walker. Regular diet, minimal appetite. Incontinent of bowel and bladder. PIV infusing @75ml/hr, No BM on this shift. Fall precaution in place. Major Shift Events: none Treatment Plan: Continue PT, IVF, encourage mobility and diet, IV rocephin Bedside Nurse: Mia Frank RN Problem: Adult Inpatient Plan of Care Goal: Plan of Care Review Description: The Plan of Care Review/Shift note should be completed every shift. The Outcome Evaluation is a brief statement about your assessment that the patient is improving, declining, or no change. This information will be displayed automatically on your shift note. Outcome: Progressing Flowsheets (Taken 06/15/2024 0605) Outcome Evaluation: VSS except for elevated BP, IV fluids infusing, denies pain and nausea. No loose stool on this shift. Plan of Care Reviewed With: patient Overall Patient Progress: improving Goal: Patient-Specific Goal (Individualized) Description: You can add care plan individualizations to a care plan. Examples of Individualizationmight be: Parent requests to be called daily at 9am for status, I have a hard time hearing out of my right ear, or Do not touch me to wake me up as it startles me. Outcome: Progressing Goal: Absence of Hospital-Acquired Illness or Injury Outcome: Progressing Intervention: Identify and Manage Fall Risk Recent Flowsheet Documentation Taken 06/14/20242347 by Mia Frank RN Safety Promotion/Fall Prevention: activity supervised assistive device/personal items within reach Intervention: Prevent Skin Injury Recent Flowsheet Documentation Taken 06/14/20242347 by Mia Frank RN Body Position: position changed independently Intervention: Prevent and Manage VTE (Venous Thromboembolism) Risk Recent Flowsheet Documentation Taken 06/14/20242347 by Mia Frank RN VTE Prevention/Management: SCDs off (sequential compression devices) Intervention: Prevent Infection Recent Flowsheet Documentation Taken 06/14/20242347 by Mia Frank RN Infection Prevention: hand hygiene promoted rest/sleep promoted Goal: Optimal Comfort and Wellbeing Outcome: Progressing Intervention: Monitor Pain and Promote Comfort Recent Flowsheet Documentation Taken 06/14/20242347 by Mia Frank RN Pain Management Interventions: medication (see MAR) Goal: Readiness for Transition of Care Outcome: Progressing Problem: Pain Acute Goal: Optimal Pain Control and Function Outcome: Progressing Intervention: Develop Pain Management Plan Recent Flowsheet Documentation Taken 06/14/20242347 by Mia Frank RN Pain Management Interventions: medication (see MAR) Intervention: Prevent or Manage Pain Recent Flowsheet Documentation Taken 06/14/20242347 by Mia Frank RN Medication Review/Management: medications reviewed Intervention: Optimize Psychosocial Wellbeing Recent Flowsheet Documentation Taken 06/14/20242347 by Mia Frank RN Supportive Measures: verbalization of feelings encouraged Problem: Skin Injury Risk Increased Goal: Skin Health and Integrity Outcome: Progressing Intervention: Plan: Nurse Driven Intervention: Moisture Management Recent Flowsheet Documentation Taken 06/14/20242347 by Mia Frank RN Moisture Interventions: Encourage regular toileting Intervention: Optimize Skin Protection Recent Flowsheet Documentation Taken 06/14/20242347 by Mia Frank RN Activity Management: activity adjusted per tolerance Head of Bed (HOB) Positioning: HOB at 20-30 degrees Problem: Chronic Kidney Disease Goal: Optimal Coping with Chronic Illness Outcome: Progressing Intervention: Support Psychosocial Response Recent Flowsheet Documentation Taken 06/14/20242347 by Mia Frank RN Supportive Measures: verbalization of feelings encouraged Goal: Electrolyte Balance Outcome: Progressing Goal: Fluid Balance Outcome: Progressing Goal: Optimal Functional Ability Outcome: Progressing Intervention: Optimize Functional Ability Recent Flowsheet Documentation Taken 06/14/20242347 by Mia Frank RN Activity Management: activity adjusted per tolerance Goal: Absence of Anemia Signs and Symptoms Outcome: Progressing Goal: Optimal Oral Intake Outcome: Progressing Goal: Acceptable Pain Control Outcome: Progressing Intervention: Prevent or Manage Pain Recent Flowsheet Documentation Taken 06/14/20242347 by Mia Frank RN Pain Management Interventions: medication (see MAR) Goal: Minimize Renal Failure Effects Outcome: Progressing Intervention: Monitor and Support Renal Function Recent Flowsheet Documentation Taken 06/14/20242347 by Mia Frank RN Medication Review/Management: medications reviewed Problem: Comorbidity Management Goal: Blood Pressure in Desired Range Outcome: Progressing Intervention: Maintain Blood Pressure Management Recent Flowsheet Documentation Taken 06/14/20242347 by Mia Frank RN Medication Review/Management: medications reviewed Problem: Syncope Goal: Absence of Syncopal Symptoms Outcome: Progressing Intervention: Manage Effect of Syncopal Symptoms Recent Flowsheet Documentation Taken 06/14/20242347 by Mia Frank RN Safety Promotion/Fall Prevention: activity supervised assistive device/personal items within reach Supportive Measures: verbalization of feelings encouraged * Plan of Care - Tavia Ewing RN - 06/14/2024 11:02 PM CDT To Do: End of Shift Summary For vital signs and complete assessments, please see documentation flowsheets. Pertinent assessments: Pt A&Ox4, VSS on RA, except elevated BP. Rates pain in bottom at 3, tylenol given x2. Slow to respond at times. Up Ax1 with GB and walker. Regular diet, minimal appetite. Incontinent of bowel and bladder. PIV infusing @75ml/hr, dressing changed this shift. Bed alarm on for safety. Major Shift Events: none Treatment Plan: Continue PT, IVF, encourage mobility and diet, IV rocephin Bedside Nurse: Tavia Ewing RN Problem: Adult Inpatient Plan of Care Goal: Plan of Care Review Description: The Plan of Care Review/Shift note should be completed every shift. The Outcome Evaluation is a brief statement about your assessment that the patient is improving, declining, or no change. This information will be displayed automatically on your shift note. Outcome: Progressing Flowsheets (Taken 06/14/2024 2302) Outcome Evaluation: A&Ox4, rates pain at 3, tylenol given x2. Plan of Care Reviewed With: patient Goal: Patient-Specific Goal (Individualized) Description: You can add care plan individualizations to a care plan. Examples of Individualizationmight be: Parent requests to be called daily at 9am for status, I have a hard time hearing out of my right ear, or Do not touch me to wake me up as it startles me. Outcome: Progressing Goal: Absence of Hospital-Acquired Illness or Injury Outcome: Progressing Intervention: Identify and Manage Fall Risk Recent Flowsheet Documentation Taken 06/14/2024 1551 by Tavia Ewing RN Safety Promotion/Fall Prevention: activity supervised assistive device/personal items within reach clutter free environment maintained nonskid shoes/slippers when out of bed safety round/check completed Intervention: Prevent and Manage VTE (Venous Thromboembolism) Risk Recent Flowsheet Documentation Taken 06/14/2024 1551 by Tavia Ewing RN VTE Prevention/Management: SCDs off (sequential compression devices) Intervention: Prevent Infection Recent Flowsheet Documentation Taken 06/14/2024 1551 by Tavia Ewing RN Infection Prevention: hand hygiene promoted rest/sleep promoted single patient room provided Goal: Optimal Comfort and Wellbeing Outcome: Progressing Intervention: Monitor Pain and Promote Comfort Recent Flowsheet Documentation Taken 06/14/2024 1551 by Tavia Ewing RN Pain Management Interventions: medication (see MAR) Goal: Readiness for Transition of Care Outcome: Progressing Problem: Pain Acute Goal: Optimal Pain Control and Function Outcome: Progressing Intervention: Develop Pain Management Plan Recent Flowsheet Documentation Taken 06/14/2024 1551 by Tavia Ewing RN Pain Management Interventions: medication (see MAR) Intervention: Prevent or Manage Pain Recent Flowsheet Documentation Taken 06/14/2024 1551 by Tavia Ewing RN Medication Review/Management: medications reviewed Problem: Skin Injury Risk Increased Goal: Skin Health and Integrity Outcome: Progressing Intervention: Plan: Nurse Driven Intervention: Moisture Management Recent Flowsheet Documentation Taken 06/14/2024 1551 by Tavia Ewing RN Moisture Interventions: Encourage regular toileting No brief in bed Incontinence pad Barrier ointment (CriticAid, Triad paste) Problem: Chronic Kidney Disease Goal: Optimal Coping with Chronic Illness Outcome: Progressing Goal: Electrolyte Balance Outcome: Progressing Goal: Fluid Balance Outcome: Progressing Goal: Optimal Functional Ability Outcome: Progressing Goal: Absence of Anemia Signs and Symptoms Outcome: Progressing Goal: Optimal Oral Intake Outcome: Progressing Goal: Acceptable Pain Control Outcome: Progressing Intervention: Prevent or Manage Pain Recent Flowsheet Documentation Taken 06/14/2024 1551 by Tavia Ewing RN Pain Management Interventions: medication (see MAR) Goal: Minimize Renal Failure Effects Outcome: Progressing Intervention: Monitor and Support Renal Function Recent Flowsheet Documentation Taken 06/14/2024 1551 by Tavia Ewing RN Medication Review/Management: medications reviewed Problem: Comorbidity Management Goal: Blood Pressure in Desired Range Outcome: Progressing Intervention: Maintain Blood Pressure Management Recent Flowsheet Documentation Taken 06/14/2024 1551 by Tavia Ewing RN Medication Review/Management: medications reviewed Problem: Syncope Goal: Absence of Syncopal Symptoms Outcome: Progressing Intervention: Manage Effect of Syncopal Symptoms Recent Flowsheet Documentation Taken 06/14/2024 1551 by Tavia Ewing RN Safety Promotion/Fall Prevention: activity supervised assistive device/personal items within reach clutter free environment maintained nonskid shoes/slippers when out of bed safety round/check completed Goal Outcome Evaluation: Plan of Care Reviewed With: patient Outcome Evaluation: A&Ox4, rates pain at 3, tylenol given x2. * Plan of Care - Sari Washington RN - 06/14/2024 3:06 PM CDT End of Shift Summary For vital signs and complete assessments, please see documentation flowsheets. Pertinent assessments: Pt A&Ox4, slow to respond at times. Up with Ax1, ambulated in room with therapy. Incontinent of bowel and bladder, stool loose. X2 BM this shift. Poor appetite. Resting comfortably in bed most of shift. Major Shift Events: none Treatment Plan: Continue PT, IVF, encourage mobility and diet, IV rocephin Problem: Adult Inpatient Plan of Care Goal: Plan of Care Review Description: The Plan of Care Review/Shift note should be completed every shift. The Outcome Evaluation is a brief statement about your assessment that the patient is improving, declining, or no change. This information will be displayed automatically on your shift note. Outcome: Progressing Flowsheets (Taken 06/14/2024 1505) Outcome Evaluation: Worked with PT Plan of Care Reviewed With: patient Overall Patient Progress: improving Goal: Patient-Specific Goal (Individualized) Description: You can add care plan individualizations to a care plan. Examples of Individualizationmight be: Parent requests to be called daily at 9am for status, I have a hard time hearing out of my right ear, or Do not touch me to wake me up as it startles me. Outcome: Progressing Goal: Absence of Hospital-Acquired Illness or Injury Outcome: Progressing Intervention: Identify and Manage Fall Risk Recent Flowsheet Documentation Taken 06/14/2024 0913 by Sari Washington RN Safety Promotion/Fall Prevention: activity supervised assistive device/personal items within reach clutter free environment maintained nonskid shoes/slippers when out of bed safety round/check completed Intervention: Prevent and Manage VTE (Venous Thromboembolism) Risk Recent Flowsheet Documentation Taken 06/14/2024 0913 by Sari Washington RN VTE Prevention/Management: SCDs off (sequential compression devices) Intervention: Prevent Infection Recent Flowsheet Documentation Taken 06/14/2024 0913 by Sari Washington RN Infection Prevention: hand hygiene promoted rest/sleep promoted single patient room provided Goal: Optimal Comfort and Wellbeing Outcome: Progressing Goal: Readiness for Transition of Care Outcome: Progressing Goal Outcome Evaluation: Plan of Care Reviewed With: patient Overall Patient Progress: improvingOverall Patient Progress: improving Outcome Evaluation: Worked with PT * Plan of Care - Maru Doan RN - 06/14/2024 2:28 PM CDT Goal Outcome Evaluation: Plan of Care Reviewed With: spouse Overall Patient Progress: no changeOverall Patient Progress: no change Outcome Evaluation: TCU recommendation on discharge. Discussed with spouse and referrals sent * Pharmacy-Admission Medication History - Mary Guerrero [facility] - 06/14/2024 9:22 AM CDT Pharmacist Admission Medication History Admission medication history is complete. The information provided in this note is only as accurateas the sources available at the time of the update. Information Source(s): Family member, Hospital records, and CareEverywhere/SureScripts via phone, med rec attempted last night, pt states helps/sets up meds. Called pts this morning. [facility] Pt took AM meds on 06/13 at home and had first dose of 11 day course cefdinir precribed on [facility] yesterday am. Pertinent Information: pt has donepezil as an allergy in [facility]. Listed as side effect of diarrhea/dehydrations (hospitalized for this and added to allergy list 12/08/23). Asked to clarify this allergy as pt is currently on donepezil. She states it was added as an allergy in November due to hospit alization/diarrhea. Med was stopped and then was restarted sometime by a different provider. Told would pass this info along to the MD as pt presenting with diarrhea per notes. Changes made to DATA ENTRY ANALYST medication list: Added: None Deleted: None Changed: None Allergies reviewed with patient and updates made in EHR: yes Medication History Completed By: Mary Guerrero RPH 06/14/2024 9:22 AM DATA ENTRY ANALYST Med List Medication Sig Last Dose aspirin 81 MG EC tablet Take 1 tablet (81 mg) by mouth every morning. Hold until follow up with PCPafter hospital stay 06/13/2024 at am atorvastatin (LIPITOR) 80 MG tablet Take 1 tablet (80 mg) by mouth every evening 06/12/2024 at pm cefdinir (OMNICEF) 300 MG capsule Take 1 capsule (300 mg) by mouth 2 times daily for 11 days. Do not start before June 12, 2024. 06/13/2024 at am-first dose cyanocobalamin (CYANOCOBALAMIN) 1000 MCG/ML injection Inject 1 mL into the muscle every 30 days More than a month at two months ago disulfiram (ANTABUSE) 250 MG tablet Take 1 tablet (250 mg) by mouth daily 06/13/2024 at am donepezil (ARICEPT) 5 MG tablet Take 2 tablets (10 mg) by mouth at bedtime. 06/12/2024 at pm escitalopram (LEXAPRO) 20 MG tablet Take 60 mg by mouth every evening 06/12/2024 at pm melatonin 3 MG tablet Take 1 tablet (3 mg) by mouth nightly as needed for sleep Unknown at ? midodrine (PROAMATINE) 2.5 MG tablet Take 1 tablet (2.5 mg) by mouth 2 times daily Hold if SBP<130. Do not take prior to sleeping 06/13/2024 at am Multiple Vitamins-Iron (TAB-A-CATRACHO/IRON) TABS Take 1 capsule by mouth daily 06/12/2024 at pm phenylephrine (LEATHA-SYNEPHRINE) 1 % nasal spray Mott 1 drop into both nostrils daily as needed for congestion Unknown at ? tamsulosin (FLOMAX) 0.4 MG capsule Take 0.8 mg by mouth every evening 06/12/2024 at pm thiamine (B-1) 100 MG tablet Take 100 mg by mouth every evening 06/12/2024 at pm * Utilization Review - Jeff Nick MD - 06/14/2024 9:04 AM CDT Admission Status; Secondary Review Determination Under the authority of the Utilization Management Committee, the utilization review process indicated a secondary review on the above patient. The review outcome is based on review of the medical records, discussions with staff, and applying clinical experience noted on the date of the review. (x) Inpatient Status Appropriate - This patient's medical care is consistent with medical management for inpatient care and reasonable inpatient medical practice. RATIONALE FOR DETERMINATION: 68-year-old male with a history of mild cognitive impairment, chronic kidney disease (CKD), postural hypotension, hyperlipidemia, prediabetes, and cerebrovascular disease presents with worsening diarrhea and generalized weakness since being discharged the day prior. He was previously hospitalized fr 06/08/2024 to 06/12/2024 for bacteremia, UTI, sepsis and nephrolithiasis, during which a ureteral stent was placed. Blood and urine cultures from that admission grew Klebsiella (resistant to ampicillin). He was treated with IV Rocephin and discharged on Omnicef. His hospital course was complicatedby diarrhea and acute renal failure (ARF) on CKD. On current presentation, Labs show a new leukocytosis of 12.6, and urinalysis reveals significant pyuria and hematuria with large leukocyte esterase.Abdominopelvic CT indicates new left pyelonephritis and mild colitis. He is managed with IV ceftriaxone and IVF. Given the patient's recent hospitalization for urosepsis, ongoing diarrhea, and acute renal failureon CKD, inpatient admission is necessary to manage the risk of severe dehydration, potential for recurrent urosepsis, and worsening renal function. Outpatient treatment would pose a significant risk of adverse outcomes, including progression to septicemia, further renal impairment, and electrolyte imbalances due to the diarrheal illness. Close monitoring and aggressive management in a controlled inpatient setting are needed to stabilize his condition and prevent life-threatening complications. At the time of admission with the information available to the attending physician more than 2 nights Hospital complex care was anticipated, based on patient risk of adverse outcome if treated as outpatient and complex care required. Inpatient admission is appropriate based on the Medicare guidelines. This document was produced using voice recognition software The information on this document is developed by the utilization review team in order for the business office to ensure compliance. This only denotes the appropriateness of proper admission status and does not reflect the quality of care rendered. The definitions of Inpatient Status and Observation Status used in making the determination above are those provided in the CMS Coverage Manual, Chapter 1 and Chapter 6, section 70.4. Sincerely, Jeff Nick MD, MPH [facility] Office # [phone] * Plan of Care - Alessia Oneill RN - 06/14/2024 7:28 AM CDT Goal Outcome Evaluation: Pertinent assessments: Pt arrived on the floor ~0010. He was dizzy when he sat up to get off the cart but he was able to step onto the scale and walk into the room on his own. He should be Ax1 with the gait belt. He is A&O x4. ILIAMNA and doesn't have his hearing aids with him but he can communicate well. VSS with elevated BP on RA. Endorsed pain when his buttocks/perineum/scrotum are wiped; veryred, applied barrier paste. PIV patent, infusing NS @ 100ml/hr as well as Rocephin. Major Shift Events: Arrived on the unit ~0010 Treatment Plan: IV Rocephin, Imodium as needed, IVF, PT consult. Bedside Nurse: Alessia Oneill RN Plan of Care Reviewed With: patient Overall Patient Progress: no changeOverall Patient Progress: no change Outcome Evaluation: Diarrhea x2. Redness on buttocks/perineum/scrotum; barrier paste applied. IV Rocephin x1. NS @ 100ml/hr. Problem: Adult Inpatient Plan of Care Goal: Plan of Care Review Description: The Plan of Care Review/Shift note should be completed every shift. The Outcome Evaluation is a brief statement about your assessment that the patient is improving, declining, or no change. This information will be displayed automatically on your shift note. Outcome: Not Progressing Flowsheets (Taken 06/14/2024 07) Outcome Evaluation: Diarrhea x2. Redness on buttocks/perineum/scrotum barrier paste applied. IV Rocephin x1. NS @ 100ml/hr. Plan of Care Reviewed With: patient Overall Patient Progress: no change Goal: Patient-Specific Goal (Individualized) Description: You can add care plan individualizations to a care plan. Examples of Individualizationmight be: Parent requests to be called daily at 9am for status, I have a hard time hearing out of my right ear, or Do not touch me to wake me up as it startles me. Outcome: Not Progressing Goal: Absence of Hospital-Acquired Illness or Injury Outcome: Not Progressing Intervention: Identify and Manage Fall Risk Recent Flowsheet Documentation Taken 06/14/20249 by Alessia Oneill RN Safety Promotion/Fall Prevention: activity supervised assistive device/personal items within reach clutter free environment maintained nonskid shoes/slippers when out of bed safety round/check completed Intervention: Prevent Skin Injury Recent Flowsheet Documentation Taken 06/14/20249 by Alessia Oneill, RN Body Position: position changed independently Skin Protection: incontinence pads utilized Intervention: Prevent and Manage VTE (Venous Thromboembolism) Risk Recent Flowsheet Documentation Taken 06/14/2024 0010 by Alessia Oneill RN VTE Prevention/Management: SCDs off (sequential compression devices) Intervention: Prevent Infection Recent Flowsheet Documentation Taken 06/14/2024 001 by Alessia Oneill, RN Infection Prevention: hand hygiene promoted rest/sleep promoted single patient room provided Goal: Optimal Comfort and Wellbeing Outcome: Not Progressing Intervention: Monitor Pain and Promote Comfort Recent Flowsheet Documentation Taken 06/14/2024 001 by Alessia Oneill RN Pain Management Interventions: declines Goal: Readiness for Transition of Care Outcome: Not Progressing Intervention: Mutually Develop Transition Plan Recent Flowsheet Documentation Taken 06/14/2024 0047 by Alessia Oneill RN Equipment Currently Used at Home: none documented in this encounter Plan of Treatment Upcoming Encounters Date Type Department Care Team (Late st Contact Info) Description 06/29/2024 2:45 PM CDT Office Visit [facility] [id number] [place] [id number] Ip, Akash Escobar MD [address] [place], [place] [address] Scheduled Orders Name Type Priority Associated Diagnoses Orde r Schedule Basic metabolic panel Lab Routine AM Draw for 1 Occurrences starting 06/16/2024 until 06/16/2024 Potassium Lab Routine AM Draw for 1 Occurrences starting 06/17/2024 until 06/17/2024 Magnesium Lab Routine AM Draw for 1 Occurrences starting 06/16/2024 until 06/16/2024 Scheduled Procedures Name Priority Associated Diagnoses Date/Ti me CYSTOURETEROSCOPY, WITH LITH OTRIPSY USING LASER AND URETERAL STENT INSERTION Ureteral stone documented as of this encounter Goals Goal Patient Goal Type Associated Problems Recent Progress Patient-Stated? 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 Nani Sainz LSW Note: Goal Statement: [...] BY METER Routine 06/15/2024 8:22 PM CDT BASIC METABOLIC PANEL Routine 06/15/2024 7:24 AM CDT CBC WITH PLATELETS Routine 06/15/2024 7: 24 AM CDT BASIC METABOLIC PANEL Routine 06/14/2024 6:47 AM CDT CBC WITH PLATELETS Routine 06/14/2024 6: [address] ABDOMEN PELVIS W CONTRAST STAT 06/13/2024 9:19 PM CDT ROUTINE UA WITH MICROSCOPIC REFLEX TO CULTURE STAT 06/13/2024 7:16 PM CDT URINE CULTURE STAT 06/13/2024 7:[address] HEAD W/O CONTRAST STAT 06/13/2024 7:00 PM CDT EXTRA TUBE STAT 06/13/2024 6:32 PM CDT EXTRA RED TOP TUBE STAT 06/13/2024 6: 32 PM CDT EXTRA BLUE TOP TUBE STAT 06/13/2024 6 :32 PM CDT CBC WITH PLATELETS AND DIFFERENTIAL STAT 06/13/2024 6:32 PM CDT CBC WITH PLATELETS & DIFFERENTIAL STAT 06/13/2024 6:32 PM CDT MAGNESIUM STAT 06/13/2024 6:32 PM CDT COMPREHENSIVE METABOLIC PANEL STAT 06/13/2024 6:32 PM CDT ISTAT GASES LACTATE VENOUS POCT STAT 06/13/2024 6:31 PM CDT EKG 12-LEAD, TRACING ONLY STAT 06/13/2024 6:08 PM CDT documented in this encounter Results * Potassium (06/16/2024 12:48 AM CDT) Potassium 4.0 3.4 - 5.3 mmol/L 06/16/2024 1:22 AM CDT [facility] Blood STRUCTURE OF RIGHT HAND / Unknown Venipuncture / Unknown 06/16/2024 12:48 AM CDT 06/16/2024 12:59 AM CDT Yan King MD LAB - BLOOD ORDER SANTO [facility] [address] Lab (1st floor, no room number) [place] [address] * (ABNORMAL) Magnesium (06/15/2024 8:35 PM CDT) Magnesium 1.6(L) 1.7 - 2.3 mg/dL 06/15/2024 9:04 PM CDT [facility] Blood STRUCTURE OF LEFT UPPER LIMB / Unknown Venipuncture / Unknown 06/15/2024 8:35 PM CDT 06/15/2024 8:38 PM CDT Yna King MD LAB - BLOOD ORDER SANTO [facility] [address] Lab (1st floor, no room number) [place] [phone] [place] [address] * (ABNORMAL) Glucose by meter (06/15/2024 8:22 PM CDT) GLUCOSE BY METER POCT 111(H) 70 - 99 mg/dL 06/15/2024 8:34 PM CDT [facility] POC Blood, Capillary BLOOD SPECIMEN / Unknown 06/15/2024 8:22 PM CDT 06/15/2024 8:34 PM CDT Yan King MD LAB - BEAKER POCT [facility] POC [facility] [address] [facility], no room number) [address] [place] [address] * (ABNORMAL) CBC with platelets (06/15/2024 7:24 AM CDT) Pathologist [facility] WBC Count 9.5 4.0 - 11.0 10e3/uL [...] LAB - BLOOD ORDERABL ES [facility] [address] Lab (1st floor, no room number) [place] [address] * (ABNORMAL) Basic metabolic panel (06/15/2024 7:24 AM CDT) Sodium 140 135 - 145 mmol/L 06/15/2024 [...] 7:52 AM CDT LABORATORY Comment:eGFR calculated usin g 2020 CKD-EPI equation. Calcium 7.8(L) 8.8 - 10.4 mg/dL 06/15/2024 7:52 AM CDT [facility] Comment:Reference intervals for this test were updated on 05/04/2024 to reflect our healthy population more accurately. There may be differences in the flagging of prior results with similar values performed with this method. Those prior results can be interpreted in the context of the updated reference intervals. Glucose 93 70 - 99 mg/dL 06/15/2024 7:52 AM CDT LABORATORY Blood STRUCTURE OF LEFT HAND / Unknown Venipuncture / Unknown 06/15/2024 7:24 AM CDT 06/15/2024 7:31 AM CDT Girma Nash MD LAB - BLOOD ORDERABL ES [facility] [address] Lab (1st floor, no room number) [place] [address] * (ABNORMAL) CBC with platelets (06/14/2024 6:47 AM CDT) [facility] WBC Count 10.7 4.0 - 11.0 10e3/uL 06/14/2024 6:58 AM CDT [facility] RBC Count 3.26(L) 4.40 - 5.90 10e6/uL 06/14/2024 6:58 AM CDT [facility] Hemoglobin 9.7(L) 13.3 - 17.7 g/dL 06/14/2024 6:58 AM CDT [facility] Hematocrit 29.3(L) 40.0 - 53.0 % 06/14/2024 6:58 AM CDT [facility] MCV 90 78 - 100 fL 06/14/2024 6:58 AM CDT [facility] MCH 29.8 26.5 - 33.0 pg 06/14/2024 6:58 AM CDT [facility] MCHC 33.1 31.5 - 36.5 g/dL 06/14/2024 6:58 AM CDT [facility] RDW 13.8 10.0 - 15.0 % 06/14/2024 6:58 AM CDT [facility] Platelet Count 201 150 - 450 10e3/uL 06/14/2024 6:58 AM CDT [facility] Blood STRUCTURE OF RIGHT UPPER LIMB / Unknown Venipuncture / Unknown 06/14/2024 6:47 AM CDT 06/14/2024 6:55 AM CDT Yan King MD LAB - BLOOD ORDER SANTO [facility] [address] Lab (1st floor, no room number) [place] [address], [facility] * (ABNORMAL) Basic metabolic panel (06/14/2024 6:47 AM CDT) Sodium 142 135 - 145 mmol/L 06/14/2024 7:15 AM CDT LABORATORY Potassium 3.3(L) 3.4 - 5.3 mmol/L 06/14/2024 7:15 AM CDT [facility] Chloride 113(H) 98 - 107 mmol/L 06/14/2024 7:15 AM CDT [facility] Carbon Dioxide (CO2) 15(L) 22 - 29 mmol/L 06/14/2024 7:15 AM CDT [facility] Anion Gap 14 7 - 15 mmol/L 06/14/2024 7:15 AM CDT [facility] Urea Nitrogen 17.8 8.0 - 23.0 mg/dL 06/14/2024 7:15 AM CDT [facility] Creatinine 1.44(H) 0.67 - 1.17 mg/dL 06/14/2024 7:15 AM CDT [facility] GFR Estimate 53(L) >60 mL/min/1.7 3m2 06/14/2024 7:15 AM CDT [facility] Comment:eGFR calculated usin g 2020 CKD-EPI equation. Calcium 8.1(L) 8.8 - 10.4 mg/dL 06/14/2024 7:15 AM CDT [facility] Comment:Reference intervals for this test were updated on 05/04/2024 to reflect our healthy population more accurately. There may be differences in the flagging of prior results with similar values performed with this method. Those prior results can be interpreted in the context of the updated reference intervals. Glucose 84 70 - 99 mg/dL 06/14/2024 7:15 AM CDT LABORATORY Blood STRUCTURE OF RIGHT UPPER LIMB / Unknown Venipuncture / Unknown 06/14/2024 6:47 AM CDT 06/14/2024 6:55 AM CDT Yan King MD LAB - BLOOD ORDER SANTO LABORATORY [facility] [address] Lab (1st floor, no room number) [place] [address] * CT Abdomen Pelvis w Contrast (06/13/2024 [...] EXAM: CT ABDOMEN PELVIS W CONTRAST LOCATION: [facility] DATE: 06/13/2024 INDICATION: ongoing infectious symptoms, diarrhea, [...] EXAM: CT ABDOMEN PELVIS W CONTRAST LOCATION: [facility] DATE: 06/13/2024 INDICATION: ongoing infectious symptoms, diarrhea, [...] Dixon PA-C IMG CT ORDERABLE S * Urine Culture (06/13/2024 7:16 PM CDT) Culture No Growth 06/14/2024 11:52 PM CDT [facility] Urine URINE SPECIMEN OBTAINED BY CLEAN CATCH PROCEDURE / Unknown Non-blood Collection / Unknown 06/13/2024 7:16 PM CDT 06/13/2024 7:33 PM CDT Diane Dixon PA-C LAB - MICRO GENE RAL ORDERABLES [facility] [address] [facility], [address] [place] [phone], [facility] * (ABNORMAL) UA with Microscopic reflex to Culture (06/13/2024 7:16 PM CDT) Color Urine [place](A) Colorless, Straw, Light Yellow, Yellow 06/13/2024 7:33 PM CDT [facility] Appearance Urine Slightly Cloudy(A) Clear 06/13/2024 7:33 PM CDT [facility] Glucose Urine Negative Negative mg/dL 06/13/2024 7:33 PM CDT [facility] Bilirubin Urine Negative Negative 7:33 PM CDT [facility] Ketones Urine 10(A) Negative mg/dL 06/13/2024 7:33 PM CDT [facility] Specific [place] Urine 1.016 1.003 - 1.035 06/13/2024 7:33 [...] criteria Diane Dixon PA-C LAB - URINE NEELAE NIKKO [facility] Organization Address City/State/ZIP Co de Phone Number [facility] [address] Lab (1st floor, no room number) [place] [address] * Head CT w/o contrast (06/13/2024 7:00 [...] CDT EXAM: CT HEAD W/O CONTRAST LOCATION: [facility] DATE: 06/13/2024 INDICATION: syncope, head strike COMPARISON: [...] 06/13/2024 EXAM: CT HEAD W/O CONTRAST LOCATION: [facility] DATE: 06/13/2024 INDICATION: syncope, head strike COMPARISON: [...] microvascularischemic changes as above. Diane Dixon PA-C IMKermit CT ORDERABLE S * Extra Red Top Tube (06/13/2024 6:32 PM CDT) Pathologist [facility] Hold Specimen [facility] 06/13/2024 8:06 PM CDT LABORATORY Blood BLOOD SPECIMEN / Unknown Venipuncture / Unknown 06/13/2024 6:32 PM CDT 06/13/2024 6:51 PM CDT Diane Dixon PA-C LAB - BLOOD NEELAKaia EL [facility] [address] Lab (1st floor, no room number) [address] * Extra Blue Top Tube (06/13/2024 6:32 PM CDT) Hold Specimen JI 06/13/2024 8:06 PM CDT [facility] Blood BLOOD SPECIMEN / Unknown Venipuncture / Unknown 06/13/2024 6:32 PM CDT 06/13/2024 6:51 PM CDT Diane Dixon PA-C LAB - BLOOD JOHN EL Performing Organization Address [facility] [address]/ZIP Co de Phone Number [facility] [address] Lab (1st floor, no room number) [address] * (ABNORMAL) CBC with platelets and differential (06/13/2024 6:32 PM CDT) WBC Count 12.6(H) 4.0 - 11.0 10e3/uL [...] Dixon PA-C LAB - BLOOD JOHN EL [facility] Organization Address City/State/ZIP Co de Phone Number [facility] [address] Lab (1st floor, no room number) [place] [address] * Magnesium (06/13/2024 6:32 PM CDT) Magnesium 2.1 1.7 - 2.3 mg/dL 06/13/2024 7:12 PM CDT [facility] Blood BLOOD SPECIMEN / Unknown Venipuncture / Unknown 06/13/2024 6:32 PM CDT 06/13/2024 6:51 PM CDT Diane Dixon PA-C LAB - BLOOD JOHN EL [facility] [address] Lab (1st floor, no room number) [place] [address] * (ABNORMAL) Comprehensive metabolic panel (06/13/2024 6:32 PM CDT) Sodium 141 135 - 145 mmol/L 06/13/2024 7:12 PM CDT [facility] Potassium 3.4 3.4 - 5.3 mmol/L 06/13/2024 7:12 PM CDT [facility] Carbon Dioxide (CO2) 17(L) 22 - 29 mmol/L 06/13/2024 7:12 PM CDT [facility] Anion Gap 15 7 - 15 mmol/L 06/13/2024 7:12 PM CDT [facility] Urea Nitrogen 21.6 8.0 - 23.0 mg/dL 06/13/2024 7:12 PM CDT [facility] Creatinine 1.68(H) 0.67 - 1.17 mg/dL 06/13/2024 7:12 PM CDT [facility] GFR Estimate 44(L) >60 mL/min/1.7 3m2 06/13/2024 7:12 PM CDT [facility] Comment:eGFR calculated usin 2020 CKD-EPI equation. Calcium 9.2 8.8 - [...] PA-C LAB - BLOOD JOHN EL LABORATORY [facility] [address] [facility] Lab (1st floor, no room number) [place] [address], [facility] * (ABNORMAL) iStat Gases (lactate) venous, POCT (06/13/2024 6:31 PM CDT) Lactic Acid POCT 0.6 <=2.0 mmol/L 06/13/2024 [...] - BEAKER POC T [facility] POC [facility] [address] Lab (1st floor, no room number) [place] [address] * EKG 12-lead, tracing only (06/13/2024 6:08 PM CDT) Systolic Blood Pressure mmHg RADIOLOGY RESULTS Diastolic Blood Pressure mmHg RADIOLOGY RESULTS Ventricular Rate 77 BPM RAD IOLOGY RESULTS Atrial Rate 77 BPM RADIOLOG Y RESULTS ID Interval 154 ms RADIOLOG Y RESULTS QRS Duration 92 ms RADIOLO GY RESULTS QT 408 ms RADIOLOGY RESULTS QTc 461 ms RADIOLOGY RESULTS P Burton 63 degrees RADIOLOGY RESULTS R AXIS 56 degrees RADIOLOGY RESULTS T Burton 66 degrees RADIOLOGY RESULTS Interpretation ECG Sinus rhythm Nonspecific T wave abnormality Prolonged QT Abnormal ECG When compared with ECG of 08-Jun-2024 20:08, Vent. rate has decreased by ??44 bpm T wave inversion now evident in Anterior leads Confirmed by - EMERGENCY ROOM, PHYSICIAN ([id number]), magazine editor MARINA AL (Renny) on 06/14/2024 7:07:33 AM RADIOLOGY RESULTS 06/13/2024 6:08 PM CDT 06/14/2024 7:07 AM CDT Diane Dixon PA-C ECG ORDERABLES RADIOLOGY RESULTS documented in this encounter Visit Diagnoses Diagnosis Pyelonephritis, acute Acute pyelonephritis without lesion of renal medullary necrosis Syncope, unspecified syncope type Diarrhea, unspecified type Pyelonephritis, acute Acute pyelonephritis without lesion of renal medullary necrosis Syncope, unspecified syncope type Diarrhea, unspecified type documented in this encounter Administered Medications Active Administered Medications - up to 3 most recent administrations Medication Order MAR Action Action Date Dose Rate Site 0.45% sodium chloride + KCl 20 mEq/L infusion at 75 mL/hr, Intravenous, CONTINUOUS, Starting on Fri06/14/24 at 2100, Until Discontinued $New Bag 06/16/2024 1:27 AM CDT 75 mL/hr Rate/Dose Verify 06/15/2024 5:59 PM CDT 75 mL/h r $New Bag 06/15/2024 9:50 AM CDT 75 mL/hr acetaminophen (TYLENOL) Suppository 650 mg 650 mg, Rectal, EVERY 4 HOURS PRN, mild pain, other, and adjunct with moderate or severe pain or per patient request, Starting on Fri06/14/24 at 0002, Alternate with ibuprofen if ordered. Maximum acetaminophen dose from all sources = 75 mg/kg/day not to exceed 4 grams/day. acetaminophen (TYLENOL) tablet 650 mg 650 mg, Oral, EVERY 4 HOURS PRN, mild pain, other, and adjunct with moderate or severe pain or per patient request, Starting on Fri06/14/24 at 0002, Alternate with ibuprofen if ordered. Maximum acetaminophen dose from all sources = 75 mg/kg/day not to exceed 4 grams/day. $Given 06/14/2024 8:12 PM CDT 650 mg $Given 06/14/2024 3:56 PM CDT 650 mg atorvastatin (LIPITOR) tablet 80 mg 80 mg, Oral, EVERY EVENING, First dose on Fri06/14/24 at 2000 $Given 06/15/2024 9:29 PM CDT 80 mg $Given 06/14/2024 8:09 PM CDT 80 mg cefTRIAXone (ROCEPHIN) 2 g vial to attach to NS 100 ml bag for ADULTS or NS 50 ml bag for PEDS Routine, 2 g, Intravenous, EVERY 24 HOURS, First dose on Fri06/14/24 at 0030, Indications: Pyelonephritis $New Bag 06/16/2024 12:45 AM CDT 2 g $New Bag 06/15/2024 1:10 AM CDT 2 g $New Bag 06/14/2024 1:12 AM CDT 2 g escitalopram (LEXAPRO) tablet 60 mg 60 mg, Oral, EVERY EVENING, First dose on Fri06/14/24 at 2000 $Given 06/15/2024 9:29 PM CDT 60 mg $Given 06/14/2024 8:09 PM CDT 60 mg loperamide (IMODIUM) capsule 2 mg 2 mg, Oral, 4 TIMES DAILY PRN, diarrhea, Starting on Fri06/14/24 at 1524, maximum: 16 mg/day $Given 06/16/2024 12:57 AM CDT 2 mg melatonin tablet 5 mg 5 mg, Oral, AT BEDTIME PRN, sleep, Starting on Fri06/14/24 at 0002 $Given 06/16/2024 12:57 AM CDT 5 mg midodrine (PROAMATINE) tablet 2.5 mg 2.5 mg, Oral, 2 TIMES DAILY, First dose on Fri06/14/24 at 0900, This medication should NOT be taken after evening meal or less than 4 hours before bedtime. $Given 06/15/2024 9:29 PM CDT 2.5 mg $Given 06/15/2024 9:28 AM CDT 2.5 mg $Given 06/14/2024 8:09 PM CDT 2.5 mg ondansetron (ZOFRAN ODT) ODT tab 4 mg 4 mg, Oral, EVERY 6 HOURS PRN, nausea, vomiting, Starting on Fri06/14/24 at 0002, This is Step 1 of nausea and [...] vomiting, Administer over 2-5 Minutes, Starting on Fri06/14/24 at 0002, Give IF patient unable to tolerate oral medication. This is Step 1 of nausea and vomiting management. If nausea not resolved in 15 minutes, go to Step 2 prochlorperazine (COMPAZINE). tamsulosin (FLOMAX) capsule 0.8 mg 0.8 mg, Oral, EVERY EVENING, First dose on Fri06/14/24 at 2000, Administer 30 minutes after the same meal each day. Capsules should be swallowed whole; do not crush chew or open. $Given 06/15/2024 9:29 PM CDT 0.8 mg $Given 06/14/2024 8:09 PM CDT 0.8 mg Inactive Administered Medications - up to 3 most recent administrations Medication Order MAR Action Action Date Dose Rate Site iopamidol (ISOVUE-370) solution 81 mL 81 mL, Intravenous, ONCE, On Fri06/13/24 at 2110, For 1 dose $Given 06/13/2024 9:07 PM CDT 81 mLs levofloxacin (LEVAQUIN) infusion 750 mg STAT, 750 mg, Intravenous, ONCE, On Fri06/13/24 at 2235, For 1 dose, Administer at a rate of no greater than 100 mL/hr, Indications: Urinary Tract Infection $New Bag 06/13/2024 11:02 PM CDT 750 mg 100 mL/hr potassium chloride (KLOR-CON) Packet 40 mEq 40 mEq, Oral or Feeding Tube, ONCE, On Fri06/15/24 at 2030, For 1 dose, Potassium level 3.1 - 3.4 mmol/L Ordered from the Potassium replacement order set. Dissolve packet contents in 4-8 ounces of cold water or juice., Potassium Replacement: Potassium level 3.1-3.4 mmol/L, Recheck: Potassium level 4 hours AFTER last oral or feeding tube dose $Given 06/15/2024 9:31 PM CDT 40 mEq sodium chloride 0.9 % bag 500mL for CT scan flush use Intravenous, 60 mL, ONCE, On Fri06/13/24 at 2110, For 1 dose $Given 06/13/2024 9:08 PM CDT 60 mLs sodium chloride 0.9 % infusion at 100 mL/hr, Intravenous, CONTINUOUS, Starting on Fri06/14/24 at 0030, Until Fri06/14/24 at 1529 $New Bag 06/14/2024 11:28 AM CDT 100 mL/hr $New Bag 06/14/2024 1:13 AM CDT 100 mL/hr sodium chloride 0.9% BOLUS 1,000 mL Intravenous, 1,000 mL, ONCE, at 1,000 mL/hr, Administer over 1 Hours, On Fri06/13/24 at 1820, For 1 dose $New Bag 06/13/2024 6:28 PM CDT 1,000 mLs 1000 mL/hr documented in this encounter Active and Recently Administered Medications Times are shown in CDT. Scheduled Medication Order 06/14/2024 06/15/2024 06/16/2024 atorvastatin (LIPITOR) tablet 80 mg 80 mg, Oral, EVERY EVENING, First dose on Fri06/14/24 at 1999 2008 ($Given - Provider: Tavia Ewing RN) 2128 ($Given - Provider: Grady Dodd, PILO) 1999 (Due) cefTRIAXone (ROCEPHIN) 2 g vial to attach to NS 100 ml bag for ADULTS or NS 50 ml bag for PEDS Routine, 2 g, Intravenous, EVERY 24 HOURS, First dose on Fri06/14/24 at 0030, Indications: Pyelonephritis 0112 ($New Bag - Provider: Alessia Oneill RN) 0110 ($New Bag - Provider: Mia Frank RN) 0045 ($New Bag - Provider: Minerva Bradshaw RN) escitalopram (LEXAPRO) tablet 60 mg 60 mg, Oral, EVERY EVENING, First dose on Fri06/14/24 at 1999 2008 ($Given - Provider: Tavia Ewing RN) 2128 ($Given - Provider: Grady Dodd RN) 1999 (Due) midodrine (PROAMATINE) tablet 2.5 mg 2.5 mg, Oral, 2 TIMES DAILY, First dose on Fri06/14/24 at 0900, This medication should NOT be taken after evening meal or less than 4 hours before bedtime. 0913 ($Given - Provider: Sari Washington, PILO)2008 ($Given - Provider: Tavia Ewing RN) 927 ($Given - Provider: Sari Washington RN)2128 ($Given - Provider: Grady Dodd, PILO) 0900 (Due)2100 (Due) potassium chloride (KLOR-CON) Packet 40 mEq (COMPLETED) 40 mEq, Oral or Feeding Tube, ONCE, On Fri06/15/24 at 2030, For 1 dose, Potassium level 3.1 - 3.4 mmol/L Ordered from the Potassium replacement order set. Dissolve packet contents in 4-8 ounces of cold water or juice., Potassium Replacement: Potassium level 3.1-3.4 mmol/L, Recheck: Potassium level 4 hours AFTER last oral or feeding tube dose 2131 ($Given - Provider: Grady Dodd RN) tamsulosin (FLOMAX) capsule 0.8 mg 0.8 mg, Oral, EVERY EVENING, First dose on Fri06/14/24 at 2000, Administer 30 minutes after the same meal each day. Capsules should be swallowed whole; do not crush chew or open. 2008 ($Given - Provider: Tavia Ewing RN) 2128 ($Given - Provider: Grady Dodd RN) 1999 (Due) Continuous Medication Order 06/14/2024 06/15/2024 06/16/2024 0.45% sodium chloride + KCl 20 mEq/L infusion at 75 mL/hr, Intravenous, CONTINUOUS, Starting on Fri06/14/24 at 2100, Until Discontinued 2046 ($New Bag - Provider: Tavia Ewing RN) 0950 ($New Bag - Provider: Sari Washington, PILO)1759 (Rate/Dose Verify - Provider: Grady Dodd RN) 0127 ($New Bag - Provider: Minerva Bradshaw RN) sodium chloride 0.9 % infusion (CANCELED) at 100 mL/hr, Intravenous, CONTINUOUS, Starting on Fri06/14/24 at 0030, Until Fri06/14/24 at 1529 0113 ($New Bag - Provider: Alessia Oneill RN)1128 ($New Bag - Provider: Sari Washington, PILO) PRN Medication Order 06/14/2024 06/15/2024 06/16/2024 acetaminophen (TYLENOL) Suppository 650 mg(Linked Group 1) 650 mg, Rectal, EVERY 4 HOURS PRN, mild pain, other, and adjunct with moderate or severe pain or per patient request, Starting on Fri06/14/24 at 0002, Alternate with ibuprofen if ordered. Maximum acetaminophen dose from all sources = 75 mg/kg/day not to exceed 4 grams/day. 155 (See Alternative - Provider: Tavia Ewing RN)2011 (See Alternative - Provider: Tavia Ewing RN) acetaminophen (TYLENOL) tablet 650 mg(Linked Group 1) 650 mg, Oral, EVERY 4 HOURS PRN, mild pain, other, and adjunct with moderate or severe pain or per patient request, Starting on Fri06/14/24 at 0002, Alternate with ibuprofen if ordered. Maximum acetaminophen dose from all sources = 75 mg/kg/day not to exceed 4 grams/day. 155 ($Given - Provider: Tavia Ewing, RN)2011 ($Given - Provider: Tavia Ewing, RN) loperamide (IMODIUM) capsule 2 mg 2 mg, Oral, 4 TIMES DAILY PRN, diarrhea, Starting on Fri06/14/24 at 1524, maximum: 16 mg/day 0057 ($Given - Provider: Minerva Bradshaw, PILO) melatonin tablet 5 mg 5 mg, Oral, AT BEDTIME PRN, sleep, Starting on Fri06/14/24 at 0002 0057 ($Given - Provider: Minerva Bradshaw, PILO) ondansetron (ZOFRAN ODT) ODT tab 4 mg(Linked Group 2) 4 mg, Oral, EVERY 6 HOURS PRN, nausea, vomiting, Starting on Fri06/14/24 at 0002, This is Step 1 of nausea and [...] vomiting, Administer over 2-5 Minutes, Starting on Fri06/14/24 at 0002, Give IF patient unable to tolerate oral medication. This is Step 1 of nausea and vomiting management. If nausea not resolved in 15 minutes, go to Step 2 prochlorperazine (COMPAZINE). Linked Groups Order Group 1: acetaminophen (TYLENOL) tablet 650 mgJump to med 650 mg, Oral, EVERY 4 HOURS PRN, mild pain, other, and adjunct with moderate or severe pain or per patient request, Starting on Fri06/14/24 at 0002, Alternate with ibuprofen if ordered. Maximum acetaminophen dose from all sources = 75 mg/kg/day not to exceed 4 grams/day. Or acetaminophen (TYLENOL) Suppository 650 mgJump to med 650 mg, Rectal, EVERY 4 HOURS PRN, mild pain, other, and adjunct with moderate or severe pain or per patient request, Starting on Fri06/14/24 at 0002, Alternate with ibuprofen if ordered. Maximum acetaminophen dose from all sources = 75 mg/kg/day not to exceed 4 grams/day. Group 2: ondansetron (ZOFRAN ODT) ODT tab 4 mgJump to med 4 mg, Oral, EVERY 6 HOURS PRN, nausea, vomiting, Starting on Fri06/14/24 at 0002, This is Step 1 of nausea and [...] vomiting, Administer over 2-5 Minutes, Starting on Fri06/14/24 at 0002, Give IF patient unable to tolerate oral medication. This is Step 1 of nausea and vomiting management. If nausea not resolved in 15 minutes, go to Step 2 prochlorperazine (COMPAZINE). documented in this encounter Additional Health Concerns Assessment Noted Time PHQ-9 Depression Total Score: 10 022 4:15 PM CDT documented as of this encounter Care Teams Lecturer Of Portuguese Relationship Specialty Start Date End Date Nathalie Tate MD [address] [place] [address] PCP - General Family Medicine 12/09/23 Nathalie Tate MD [address] [place] [address] Assigned PCP 06/28/23 Akash Fitzgerald MD [address] [place] [id number] Cardiovascular Disease 03/16/24 Akash Fitzgerald MD [address] [place] [id number] Assigned Heart and Vascular Provider 04/11/24 documented as of this encounter
--- OUTSIDE RECORDS SUMMARY | 2024-06-16 04:52 | XMS_ITS | Encounter Summary ---
Author Organization [facility] Address [address] [place] [id number] Care Team Providers Care Transport Assistant Name Role Phone Nathalie Tate MD Unavailable [phone] Nathalie Tate MD Primary Care Provider [phone] Ip, Akash Escobar MD Unavailable [phone] IpAkash MD Unavailable [phone] Reason for Visit * Reason Onset Date Comments Outreach 06/14/2024 Encounter Details Date Type Department Care Team (Late st Contact Info) Description 06/14/2024 Telephone [facility] [address] [place] [address] [address] [place] [address] Nathalie Tate MD [address], [place] [id number] Outreach Social History Tobacco Use Types Packs/Day Years [...] Getting School Help Needed Not on file 10/02 /2023 Food Insecurity Answer Date Recorded Within the past 12 months, d id you worry that your food would run out before you got money to buy more? No 06/14/2024 Within the past 12 months, d id the food you bought just not last and you didn? t have money to get more? No 06/14/2024 Housing Stability Answer Date Recorded Do you have housing? (Sumi toribio is defined as stable permanent housing and does not include staying ouside in a car, in a tent, in an abandoned building, in an overnight long term, or couch-surfing.) Yes 06/14/2024 Are you worried [...] Telephone Encounter - Eugenie Amador CMA - 06/14/2024 1:18 PM CDT called and states that her is in the hospital. Would like a call back from you [phone] documented in this encounter Plan of Treatment Upcoming Encounters Date Type Department Care Team (Late st Contact Info) Description 06/29/2024 2:45 PM CDT Office Visit [facility] [address] [place] [address] Akash Fitzgerald MD [address] [place] [id number] Scheduled Procedures Name Priority Associated Diagnoses Date/Ti me CYSTOURETEROSCOPY, WITH LITH OTRIPSY USING LASER AND URETERAL STENT INSERTION Ureteral stone documented as of this encounter Goals Goal Patient Goal Type Associated Problems Recent Progress Patient-Stated? Author Transportation General On track( 019 3:46 PM BOAT OPERATOR) Yes Nani Sainz LSW Note: Goal Statement: Caregiver will learn of options for transportation and volunteer respite services. Measure of Success: Caregiver will know if options are available. Supportive Steps to Achieve: CC will send resources via text and caregiver will call. Barriers: recently moved home after rehab. Strengths: Caregiver works, just started with adult [employer] services today, 10-28 Date to Achieve By: January 17, 2019 Patient expressed understanding of goal: caregiver understands. documented as of this encounter Visit Diagnoses Not on filedocumented in this encounter Additional Health Concerns Assessment Noted Time PHQ-9 Depression Total Score: 10 022 4:15 PM CDT documented as of this encounter Care Teams Transport Assistant Relationship Specialty Start Date End Date Nathalie Tate MD [address] [place] [address] PCP - General Family Medicine 12/09/23 Nathalie Tate MD [address] [place] [address] Assigned PCP 06/28/23 Akash Fitzgerald MD [address] [place] [address] Cardiovascular Disease 03/16/24 Ip, Akash Escobar MD [address] [place] [id number] Assigned Heart and Vascular Provider 04/11/24 documented as of this encounter
--- OUTSIDE RECORDS SUMMARY | 2024-06-16 04:52 | XMS_ITS | Referral Summary ---
Author Organization [facility] Address [address] [place] [address] Care Team Providers Care Second Crusher Name Role Phone Nathalie Tate MD Unavailable [phone] Nathalie Tate MD Primary Care Provider [phone] Ip, Akash Escobar MD Unavailable [phone] Ip, Akash Escobar MD Unavailable [phone] Encounters Date Type Department Care Team Description 06/14/2024 Telephone [facility] [address] [place] [phone] Nathalie Tate MD Outreach 06/13/2024 Travel 06/13/2024 6:01 PM CDT - Present Hospital Encounter [facility] Medical Surgical [address] [place] [phone] Harvey Salinas MD Wacholz, Victoria J, Abimael Taylor DO Loecken, Scott Peter, MD Parens, Karl R, MD Pyelonephritis, acute; Syncope, unspecified syncope type; Diarrhea, unspecified type 06/08/2024 7:55 PM CDT - 06/12/2024 4:09 PM CDT Hospital Encounter [facility] Observation Dept [address] [place] [phone] Teofilo Cody MD Kriz, DO Sp Bonilla Lauren T, MD Sepsis due to urinary tract infection (H); Left ureteral stone; SILVANO (acute kidney injury) (H24); Hypomagnesemia Discharge Disposition: Home or Self Care 06/10/2024 Orders Only [facility] [place] [address] [facility] [address] [place] [phone] Kory Mcclure MD Ureteral stone (Primary Dx) 06/09/2024 6:30 AM CDT Anesthesia Event [facility] PeriOp Services [address] [place] [phone] Lita Hensley MD Birch, Robert Frank Harvey, MD 06/09/2024 6:30 AM CDT - 06/09/2024 7:15 AM CDT Surgery [facility] [address] [place] [phone] Kory Mcclure MD Cystoscopy, right retrograde pyelogram, interpretation of fluoroscopic images. Right ureteral stent placement 06/08/2024 Travel 04/09/2024 Telephone [facility] [address] [place] [address] [address] [place] [phone] Nathalie Tate MD Home Care/Hospice 04/02/2024 Travel 04/02/2024 3:15 PM CDT Office Visit [facility] Heart [facility] [address] [facility] [address] [place] [phone] Nathalie Tate MD Ip, Akash Escobar MD Labile blood pressure; Other specified hypotension 03/24/2024 Telephone [facility] [address] [place] [address] Nathalie Tate MD Home Care/Hospice from Last 3 Months Allergies Active Allergy [...] Discontinued phenylephrine (LEATHA-SYNEPHRINE) 1 % nasal spray [place] 1 drop into both nostrils daily as [...] before June 12, 2024. 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 Jed Zapataashelywale has no plan or code status on file. Discussed available resources and provided with information. Confirmed code status reflects current choices pending further ACP discussions. Confirmed/documented designated decision maker(s). See permanent comments section of demographics in clinical tab. Added by Venita Dustin [facility] 09/07/2012 04/05/2024 Overview: State Tier Level: Tier 1 Status: n/a Ball Rolling Machine Operator: n/a See Letters for [facility] Care Plan Backache 02/14/2012 03/06/2012 [...] in an abandoned building, in an overnight usp, or couch-surfing.) Yes 06/14/2024 Are you worried [...] Description 06/29/2024 2:45 PM CDT Office Visit [facility] [place] [address] [facility] [address] [place] [phone] Akash Fitzgerald MD [address] [place] [id number] Scheduled Procedures Name Priority Associated Diagnoses Date/Ti me CYSTOURETEROSCOPY, WITH LITH OTRIPSY USING LASER AND URETERAL STENT INSERTION Ureteral stone Goals Goal Patient Goal Type Associated Problems Recent Progress Patient-Stated? Author Transportation General On track( 019 3:46 PM PUMP INSTALLER) Yes Nani Sainz LSW Note: Goal Statement: [...] caregiver understands. Medical Devices Implanted Type Area Wardrobe Custodian Device Identifier Shelf Expiration Date Model / Serial / Lot Stent Ureteral Polaris Ultra [id number] - [id number] Implanted:Qty : 1 on 06/09/2024 by Kory Mcclure MD at [facility] Stent Right: Urethra [employer] [id number] 12/03/2026 [id number] / / [id number] Procedures The patient is currently admitted. The [...] DIRECT LDL PANEL STAT 12/24/2023 11:[address] CHEST LUNG CANCER SCREEN LOW DOSE [...] King MD LAB - BLOOD ORDER SANTO [facility] Acute Care Lab [address] [facility] Lab (1st floor, no room number) [place] [address] * (ABNORMAL) Magnesium (06/15/2024 8:35 PM CDT) Only the most recent of7 resultswithin the time period is included. Magnesium 1.6(L) 1.7 - 2.3 mg/dL 06/15/2024 9:04 PM CDT LABORATORY Blood STRUCTURE OF LEFT UPPER LIMB / Unknown Venipuncture / Unknown 06/15/2024 8:35 PM CDT 06/15/2024 8:38 PM CDT Yan King MD LAB - BLOOD ORDER SANTO [facility] Acute Care Lab [address] Lab (1st floor, no room number) [place] [phone] [place] [address] * (ABNORMAL) Glucose by meter (06/15/2024 8:22 PM CDT) Only the most recent of3 resultswithin the time period is included. GLUCOSE BY METER POCT 111(H) 70 - 99 mg/dL 06/15/2024 8:34 PM CDT LABORATORY POC Blood, Capillary BLOOD SPECIMEN / Unknown 06/15/2024 8:22 PM CDT 06/15/2024 8:34 PM CDT Yan King MD LAB - [facility] POCT RH LABORATORY POC [facility] Lab [address] [facility] Lab (1st floor, no room number) [address] [place] [address] * (ABNORMAL) Basic metabolic panel (06/15/2024 7:24 [...] LAB - BLOOD ORDERABL ES RH LABORATORY [facility] Acute Care Lab [address] [facility] Lab (1st floor, no room number) [place] [address] * (ABNORMAL) CBC with [...] - 15.0 % 06/15/2024 8:08 AM CDT LABORATORY Platelet Count 224 150 - 450 10e3/uL 06/15/2024 8:08 AM CDT LABORATORY Blood STRUCTURE OF LEFT HAND / Unknown Venipuncture / Unknown 06/15/2024 7:24 AM CDT 06/15/2024 7:32 AM CDT Girma Nash MD LAB - BLOOD ORDERABL ES [facility] Acute Care Lab [address] Lab (1st floor, no room number) [place] [address], [facility] * CT Abdomen Pelvis w Contrast [...] EXAM: CT ABDOMEN PELVIS W CONTRAST LOCATION: [facility] DATE: 06/13/2024 INDICATION: ongoing infectious symptoms, [...] EXAM: CT ABDOMEN PELVIS W CONTRAST LOCATION: [facility] DATE: 06/13/2024 INDICATION: ongoing infectious symptoms, [...] the time period is included. Color Urine [place](A) Colorless, Straw, Light Yellow, Yellow 06/13/2024 7:33 PM CDT RH LABORATORY Appearance Urine Slightly Cloudy(A) Clear 06/13/2024 7:33 PM CDT RH LABORATORY Glucose Urine Negative Negative mg/dL 06/13/2024 7:33 PM CDT RH LABORATORY Bilirubin Urine Negative Negative 7:33 PM CDT RH LABORATORY Ketones Urine 10(A) Negative mg/dL 06/13/2024 7:33 PM CDT RH LABORATORY Specific [place] Urine 1.016 1.003 - 1.035 06/13/2024 7:33 [...] >182(H) <=5 /HPF 06/13/2024 7:33 PM CDT LABORATORY Urine URINE SPECIMEN OBTAINED BY CLEAN CATCH PROCEDURE / Unknown Non-blood Collection / Unknown 06/13/2024 7:16 PM CDT 06/13/2024 7:19 PM CDT Narrative LABORATORY - 06/13/2024 7:33 PM CDT Urine Culture ordered based on laboratory criteria Diane Dixon PA-C LAB - URINE ORDE NIKKO [facility] Organization Address City/State/ZIP Co de Phone Number LABORATORY [facility] Acute Care Lab [address] [facility] Lab (1st floor, no room number) [place] [address] * Urine Culture (06/13/2024 7:16 PM CDT) Only the most recent of2 resultswithin the time period is included. Culture No Growth 06/14/2024 11:52 PM CDT UU IDD LABORATORY Urine URINE SPECIMEN OBTAINED BY CLEAN CATCH PROCEDURE / Unknown Non-blood Collection / Unknown 06/13/2024 7:16 PM CDT 06/13/2024 7:33 PM CDT Diane Dixon PA-C LAB - MICRO GENE RAL ORDERABLES [facility] IDD LABORATORY [facility] Inf. Diseases Diag. Lab [address] [place] [address], [facility] * Head CT w/o contrast (06/13/2024 [...] CDT EXAM: CT HEAD W/O CONTRAST LOCATION: [facility] DATE: 06/13/2024 INDICATION: syncope, head strike [...] 06/13/2024 EXAM: CT HEAD W/O CONTRAST LOCATION: [facility] DATE: 06/13/2024 INDICATION: syncope, head strike [...] Tube (06/13/2024 6:32 PM CDT) Hold Specimen [facility] 06/13/2024 8:06 PM CDT LABORATORY Blood BLOOD SPECIMEN / Unknown Venipuncture / Unknown 06/13/2024 6:32 PM CDT 06/13/2024 6:51 PM CDT Diane Dixon PA-C LAB - BLOOD JOHN EL [facility] Care Lab [address] Lab (1st floor, no room number) [address] * Extra Blue Top Tube (06/13/2024 6:32 PM CDT) Hold Specimen [facility] 06/13/2024 8:06 PM CDT LABORATORY Blood BLOOD SPECIMEN / Unknown Venipuncture / Unknown 06/13/2024 6:32 PM CDT 06/13/2024 6:51 PM CDT Diane Dixon PA-C LAB - BLOOD JOHN EL [facility] Lab [address] Lab (1st floor, no room number) [address] * (ABNORMAL) CBC with platelets and differential (06/13/2024 6:32 PM CDT) Only the most recent of2 resultswithin the time period is included. [facility] WBC Count 12.6(H) 4.0 - 11.0 10e3/uL [...] PA-C LAB - BLOOD JOHN EL LABORATORY [facility] Acute Care Lab [address] [facility] Lab (1st floor, no room number) [place] [address], [facility] * (ABNORMAL) Comprehensive metabolic panel (06/13/2024 [...] - 15 mmol/L 06/13/2024 7:12 PM CDT LABORATORY Urea Nitrogen 21.6 8.0 - 23.0 mg/dL 06/13/2024 7:12 PM CDT LABORATORY Creatinine 1.68(H) 0.67 - 1.17 mg/dL [...] Dixon PA-C LAB - BLOOD JOHN EL [facility] Organization Address City/State/ZIP Co de Phone Number LABORATORY [facility] Acute Care Lab [address] [facility] Lab (1st floor, no room number) [place] [address], [facility] * (ABNORMAL) iStat Gases (lactate) venous, [...] - BEAKER POC T RH LABORATORY POC [facility] Acute Care Lab [address] Lab (1st floor, no room number) [place] [address] * EKG 12-lead, tracing only (06/13/2024 6:08 PM CDT) Only the most recent of2 resultswithin the time period is included. Systolic Blood Pressure mmHg RADIOLOGY RESULTS Diastolic Blood Pressure mmHg RADIOLOGY RESULTS Ventricular Rate 77 BPM RAD IOLOGY RESULTS Atrial Rate 77 BPM RADIOLOG Y RESULTS DC Interval 154 ms RADIOLOG Y RESULTS QRS Duration 92 ms RADIOLO GY RESULTS QT 408 ms RADIOLOGY RESULTS QTc 461 ms RADIOLOGY RESULTS P Scroggins 63 degrees RADIOLOGY RESULTS R AXIS 56 degrees RADIOLOGY RESULTS T Scroggins 66 degrees RADIOLOGY RESULTS Interpretation ECG Sinus rhythm Nonspecific T wave abnormality Prolonged QT Abnormal ECG When compared with ECG of 08-Jun-2024 20:08, Vent. rate has decreased by ??44 bpm T wave inversion now evident in Anterior leads Confirmed by - EMERGENCY ROOM, PHYSICIAN ([id number]), editor newspaper MARINA AL (Renny) on 06/14/2024 7:07:33 AM [...] using the FDA-cleared FilmArray GI Panel from [employer] ??A negative result should not rule [...] by the Infectious Diseases Diagnostic Laboratory at [facility]. This laboratory is certified under the Clinical Laboratory Improvement Amendments of 1988 (CLIA-88) as qualified to perform high complexity clinical laboratory testing. Kory Mcclure MD LAB - MICRO GEN ERAL ORDERABLES [facility] LABORATORY [facility] Inf. Diseases Diag. Lab [address] [place] [phone], [facility] * C. difficile Toxin B PCR with reflex to C. difficile Antigen and Toxins A/B EIA (06/10/2024 8:41 AMCDT) [facility] C Difficile Toxin B by PCR Negative [...] LABORATORY - 06/10/2024 11:50 AM CDT [employer] Xpert C. difficile Assay, performed on the [employer] Systems, is a qualitative in vitro [...] MICRO GEN ERAL ORDERABLES [facility] ID[facility] LABORATORY [facility] Inf. Diseases Diag. Lab [address], [address] [place] [phone] * XR Surgery KATY L/T 5 Min Fluoro w Stills (06/09/2024 6:50 AM CDT) Narrative [facility] - 06/09/2024 6:51 AM CDT This exam was marked as non-reportable because it will not be read by a radiologist or a [facility] non-radiologist provider. Harvey Novoa DO IMG DIAGNOSTIC IMAG ING ORDERABLES Performing Organization Address City/[facility]/ZIP Co de Phone Number [facility] * XR Chest 2 Views (06/08/2024 11:47 PM CDT) Anatomical Region Laterality Modality Chest Digital Radiogra phy 06/08/2024 11:4 7 PM CDT Impressions 06/09/2024 12:00 AM CDT IMPRESSION: Heart size is normal. Lungs are clear bilaterally. Mediastinum and visualized bony structures are unremarkable. Narrative 06/09/2024 12:00 AM CDT EXAM: XR CHEST 2 VIEWS LOCATION: [facility] DATE: 06/08/2024 INDICATION: sepsis COMPARISON: 12/09/2023 Procedure Note Lon Pickard MD - 06/09/2024 EXAM: XR CHEST 2 VIEWS LOCATION: [facility] DATE: 06/08/2024 INDICATION: sepsis COMPARISON: 12/09/2023 IMPRESSION: [...] EXAM: CT ABDOMEN PELVIS W/O CONTRAST LOCATION: [facility] DATE: 06/08/2024 INDICATION: V/d, renal failure, sepsis. [...] as compared to 12/09/2023 exam. Procedure Note Gilbert-Annelise Phan MD - 06/09/2024 EXAM: CT ABDOMEN PELVIS W/O CONTRAST LOCATION: [facility] DATE: 06/08/2024 INDICATION: V/d, renal failure, sepsis. [...] LABORATORY Comment:Positive for Klebsie lla pneumoniae by Mobilitrixigene multiplex nucleic acid test. Final identification and [...] 06/09/2024 11:28 AM CDT Specimen tested with Mobilitrixigene multiplex, gram-negative blood culture nucleic acid test for the following targets: Acinetobacter species, Citrobacter species, Enterobacter species, Proteus species, Escherichia coli, Klebsiella pneumoniae, Klebsiella oxytoca, Pseudomonas aeruginosa, and the following resistance markers: CTX-M, KPC, NDM, VIM, IMP and OXA. Teofilo Cody MD LAB - MICRO GENERAL ORDERABLES [facility] LABORATORY [facility] Inf. Diseases Diag. Lab [address] [place] [phone] * (ABNORMAL) Blood Culture [...] - MICRO GENERAL ORDERABLES [facility] IDD LABORATORY [facility] Inf. Diseases Diag. Lab [address] [place] [address], [facility] * (ABNORMAL) Procalcitonin (06/08/2024 8:38 PM CDT) [facility] Procalcitonin 18.09(HH) <0.50 ng/mL 06/08/2024 10:28 PM [...] See Procalcitonin Guidance document for more details. [email or web address] Factors that may affect PCT levels (not [...] BLOOD ORDERABL ES Performing Organization Address [facility]/ZIP Co de Phone Number [facility] Acute Care Lab [address] Lab (1st floor, no room number) [address] [place] [address] * CK total (06/08/2024 8:38 PM CDT) CK 194 39 - 308 U/L 06/08/2024 10:15 PM CDT LABORATORY Blood BLOOD SPECIMEN / Unknown Venipuncture / Unknown 06/08/2024 8:38 PM CDT 06/08/2024 8:50 PM CDT Teofilo Cody MD LAB - BLOOD ORDERABL ES Performing Organization Address [facility]/ZIP Co de Phone Number [facility] Acute Care Lab [address] Lab (1st floor, no room number) [address] [place] [address] * Lipid panel reflex to direct LDL (12/24/2023 11:28 PM PUMP INSTALLER) Cholesterol 166 <200 mg/dL 12/25/2023 3:05 AM PUMP INSTALLER [facility] LABORATORY Triglycerides 138 <150 mg/dL 12/25/2023 3:05 AM PUMP INSTALLER [facility] LAB[facility]ATORY Direct Measure HDL 49 >=40 mg/dL 2023 3:05 AM PUMP INSTALLER [facility] LABORATORY LDL Cholesterol Calculated 89 <=100 mg/dL 12/25/2023 3:05 AM PUMP INSTALLER [facility] LABORATORY Non HDL Cholesterol 117 <130 mg/dL 12/25/2023 3:05 AM PUMP INSTALLER [facility] LABORATORY Blood STRUCTURE OF RIGHT UPPER LIMB / Unknown Venipuncture / Unknown 12/24/2023 11:28 PM PUMP INSTALLER 12/24/2023 11:44 PM PUMP INSTALLER Narrative [facility] LABORATORY - 12/25/2023 3:05 AM PUMP INSTALLER Cholesterol Desirable: ??<200 mg/dL Triglycerides Normal: ??Less [...] Edgar MD LAB - BLOOD OR DERABLES Performing Organization Address City/State/[facility] Co de Phone Number UU LABORATORY [facility] Core Lab [address] [facility] [address], [address] [place] [address], [facility] [phone] * CT Chest Lung Cancer Scrn Low Dose wo (08/05/2023) Anatomical Region Laterality Modality Chest, SUBRAD CT BODY, UMP CT CHEST, RAD CT Computed Tomography Narrative 08/05/[address] [place] [address], [address] [place] [address] [place] : 1955 Req Phys: Nathalie Tate MD Patient name: JED ALAMO Clinic: [facility] Dept No: [id number] CT CHEST LUNG CANCER SCREENING Exam Date: 08/05/2023 EXAM: LOW DOSE LUNG CANCER SCREENING CT CHEST LOCATION: [facility] [place] DATE: 08/05/2023 INDICATION: Lung cancer screening. History [...] Lawler DNP LAB - STOOLS ORDERAB LES LABORATORY [facility] Acute Care Lab [address] Lab (1st floor, no room number) [place] [address], [place] [phone] * Hepatitis C antibody (01/20/2022 1:02 AM [...] UM SPECIALTY CORE/PROT/ENDO UM Specialty Core/Prot/Endo [address] [facility] [address], [address] [place] [address], [facility] [phone] * COLONOSCOPY W BIOPSY (05/09/2014) Alton Alonzo MD PROCEDURES from Last 3 Months or Most Recently Relevant to Health Maintenance Advance Directives For more information, please contact: [phone] Documents on File Type Date Recorded 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 Advance Directives and Living Will [...] Discussion with moreno nt/ legal decision maker Healthcare Agents on File Name Relationship Healthcare Agent [facility] p Communication Porsche [place] Spouse Health Care Agent Care Teams Second Crusher Relationship Specialty Start Date End Date Nathalie Tate MD [address] [place] [address] PCP - General Family Medicine 12/09/23 Nathalie Tate MD [address] [place] [address] Assigned PCP 06/28/23 Akash Fitzgerald MD [address] [place] [address] Cardiovascular Disease 03/16/24 Akash Fitzgerald MD [address] [place] [address] Assigned Heart and Vascular Provider 04/11/24
--- OUTSIDE RECORDS SUMMARY | 2024-06-16 04:52 | XMS_ITS | Encounter Summary ---
Author Organization [employer] Address [address] [place] [address]. [place] [address] Care Team Providers Care Broker Associate Name Role Phone Nathalie Tate MD Unavailable [phone] Nathalie Tate MD Primary Care Provider [phone] Ip, Akash Escobar MD Unavailable [phone] IpAkash MD Unavailable [phone] Encounter Details Date Type Department Care Team (Latest Contact Info) Description 06/13/2024 Travel Social History Tobacco Use Types Packs/Day [...] in an abandoned building, in an overnight longterm, or couch-surfing.) Yes 06/14/2024 Are you worried [...] as of this encounter Plan of Treatment Upcoming Encounters Date Type Department Care Team (Late st Contact Info) Description 06/29/2024 2:45 PM CDT Office Visit [facility] [address] [place] [address] [address] [place] [phone] Akash Fitzgerald MD [address] [place] [address] Scheduled Procedures Name Priority Associated Diagnoses Date/Ti me CYSTOURETEROSCOPY, WITH LITH OTRIPSY USING LASER AND URETERAL STENT INSERTION Ureteral stone documented as of this encounter Goals Goal Patient Goal Type Associated Problems Recent Progress Patient-Stated? 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
--- OUTSIDE RECORDS SUMMARY | 2024-06-16 04:52 | XMS_ITS | Encounter Summary ---
Author Organization [facility] Address [address] [place] [id number] Care Team Providers Care Senior Drupal Developer Name Role Phone Nathalie Tate MD Unavailable [phone] Nathalie Tate MD Primary Care Provider [phone] Ip, Akash Escobar MD Unavailable [phone] IpAkash MD Unavailable [phone] Reason for Referral * Home Health Therapies & Aides (Routine: Next available opening) - Pending Review Specialty Diagnoses / Procedures Referred By Lobo falk Referred To Contact Diagnoses Sepsis due to urinary tract infection (H) Patricia Jefferson PA-C [address] [place] [address] Referral ID Status Reason Start Date Expiration Date V isits Requested Visits Authorized [id number] Pending Review 06/11/2024 06/11/2025 1 1 Question Answer Reason for Referral: Physical Therapy Physical Therapy Eval and Treat for: Therapeutic Exercise Is the patient homebound? Yes Homebound Status (describe the functional limitations that support this patient is confined to his/her home. Medicaid recipients are not required to be homebound.): Requires assistance of another person or specialized equipment is needed I attest that I saw or will see the patient on this date: 06/11/2024 Provider to follow patient NATHALIE TATE [[id number]] Comments Your provider has ordered home health services. If you have not been contacted within 2 days of your discharge please call the selected Home Care agency listed on your Discharge document. If a Home Care agency is NOT listed, please call [phone]. Documentation of Face to Face and Certification for Home Health Services I certify that patient: Jed Alamo is under my care and that I, or a nurse practitioner or physician's banking assistant working with me, had a [id number] encounter that meets the physician [id number] encounter requirements with this patient on: 06/11/2024. This encounter with the patient was in whole, or in part, for the following medical condition, which is the primary reason for home health care: UTI with bacteremia. I certify that, based on my findings, the following services are medically necessary home health services: Physical Therapy. My clinical findings support the need for the above services because: Physical Therapy Services are needed to assess and treat the following functional impairments: physical deconditioning due to UTI with bacteremia. Further, I certify that my clinical findings support that this patient is homebound (i.e. absences from home require considerable and taxing effort and are for medical reasons or jain services or infrequently or of short duration when for other reasons) because: Requires assistance of another person or specialized equipment to access medical services because patient: Requires supervision of another for safe transfer... Based on the above findings. I certify that this patient is confined to the home and needs intermittent halfway care, physical therapy and/or speech therapy. The patient is under my care, and I have initiated the establishment of the plan of care. This patient will be followed by a physician who will periodically review the plan of care. Physician/Provider to provide follow up care: Nathalie Tate Attending hospital physician (the Medicare certified PECOS provider): Patricia Jefferson PA-C Physician Signature: See electronic signature associated with these discharge orders. Date: 06/11/2024 * Care Coordination (Routine: Next available opening) - Pending Review Specialty Diagnoses / Procedures Referred By Contac t Referred To Contact Diagnoses Sepsis due to urinary tract infection (H) Left ureteral stone SILVANO (acute kidney injury) (H24) Alix Guerrero PA-C [address] [place] [address] Referral ID Status Reason Start Date Expiration Date V isits Requested Visits Authorized [id number] Pending Review 06/09/2024 06/09/2025 1 1 Question Answer Reason for Referral: Care Transition Transition: Inpatient to outpatient Clinical Staff have discussed the Care Coordination Referral with the patient and/or caregiver: No Comments Reason for Visit * Reason Comments Diarrhea * Auth/Cert Specialty Diagnoses / Procedures Referred By Contabbey t Referred To Contact EMERGENCY MEDICINE Diagnoses UTI (urinary tract infection) Emergency Dept [address] [place] [address] Referral ID Status Reason Start Date Expiration Date Visits Re quested Visits Authorized [id number] 1 1 Encounter Details Date Type Department Care Team (Late st Contact Info) Description 06/08/2024 7:55 PM CDT - 06/12/2024 4:09 PM CDT Hospital Encounter [facility] Observation Dept [address] [place] [address] Teofilo Cody MD [facility]Y PHYSICIAN [facility] [address] [id number] Harvey Novoa, DO [address] [place] [address] Bianca Snowden MD [facility] [address] [id number] Sepsis due to urinary tract infection (H); Left ureteral stone; SILVANO (acute kidney injury) (H24); Hypomagnesemia Discharge Disposition: Home or Self Care Social [...] you got money to buy more? No 06/09/2024 Within the past 12 months, d id the food you bought just not last and you didn? t have money to get more? No 06/09/2024 Housing Stability Answer Date Recorded Do you have housing? (Sumi toribio is defined as stable permanent housing and does not include staying ouside in a car, in a tent, in an abandoned building, in an overnight prison, or couch-surfing.) Yes 06/09/2024 Are you worried about losing your housing? No 06/09/2024 Financial Resource Strain Answer Date R ecorded Within the past 12 months, h ave you or your family members you live with been unable to get utilities (heat, electricity) when it was really needed? No 06/09/2024 Transportation Needs Answer Date Record ed Within the past 12 months, h as lack of transportation kept you from medical appointments, getting your medicines, non-medical meetings or appointments, work, or from getting things that you need? No 06/09/2024 Interpersonal Safety Answer Date Record ed Do you feel physically and e motionally safe where you currently live? Yes 06/09/2024 Within the past 12 months, h ave you been hit, slapped, kicked or otherwise physically hurt by someone? No 06/09/2024 Within the past 12 months, h ave you been humiliated or emotionally abused in other ways by your partner or ex-partner? No 06/09/2024 Sex and Gender Information Value Date Recorded Sex Assigned at Not on file Gender Identity Not on file Sexual Orientation Not on file documented as of this encounter Last Filed Vital Signs Vital Sign Reading Time Taken Comments Blood Pressure 151/73 06/12/2024 11:00 AM CDT Pulse 81 06/12/2024 11:00 AM CDT Temperature 37.4 ??C (99.3 ??F) 06/12/2024 11:00 AM C DT Respiratory Rate 18 06/12/2024 11:00 AM CDT Oxygen Saturation 95% 06/12/2024 11:00 AM CDT Inhaled Oxygen Concentration - - Weight 73 kg (160 lb 15 oz) 06/09/2024 8:03 AM C DT Height 180.3 cm (5' 11) 06/08/2024 7:52 PM CDT Body Mass Index 22.45 06/08/2024 7:52 PM CDT documented in this encounter Discharge Instructions * Discharge Instructions* Nery Whitt MSW - 06/11/2024 3:00 PM CDT Your home care referral was sent to [facility] If you haven't heard from them within the next 24-48 hours, Please call them at . documented in this encounter Medications at Time of Discharge Medication Sig Dispensed Refills Start Date End Date aspirin 81 MG EC tablet Take 1 tablet (81 mg) by mouth every morning. Hold until follow up with PCP after hospital stay 06/11/2024 atorvastatin (LIPITOR) 80 MG tabletIndications:Cere brovascular accident (CVA), unspecified mechanism (H),Alcoholism (H) Take 1 tablet (80 mg) by mouth every evening 90 tablet 12/31/2023 cefdinir (OMNICEF) 300 MG capsuleIndications:Sep sis due to urinary tract infection (H) Take 1 capsule (300 mg) by mouth 2 times daily for 11 days. Do not start before June 12, 2024. 22 capsule 06/12/2024 06/23/2024 cyanocobalamin (CYANOCOBALAMIN) 1000 MCG/ML injection Inject 1 mL into the muscle every 30 days disulfiram (ANTABUSE) 250 MG tabletIndications:Alco holism (H) Take 1 tablet (250 mg) by mouth daily 90 tablet 12/31/2023 donepezil (ARICEPT) 5 MG tablet Take 2 tablets (10 mg) by mouth at bedtime. 06/11/2024 escitalopram (LEXAPRO) 20 MG tablet Take 60 mg by mouth every evening 01/31/2022 melatonin 3 MG tabletIndications:Inso mnia, unspecified type Take 1 tablet (3 mg) by mouth nightly as needed for sleep 03/11/2024 midodrine (PROAMATINE) 2.5 MG tabletIndications:Orth ostatic hypotension,Hypotensio n, unspecified hypotension type Take 1 tablet (2.5 mg) by mouth 2 times daily Hold if SBP<130. Do not take prior to sleeping 03/11/2024 Multiple Vitamins-Iron (TAB-A-CATRACHO/IRON) TABSIndications:Alcoho lism (H) Take 1 capsule by mouth daily 100 tablet 3 06/03/2019 phenylephrine (LEATHA-SYNEPHRINE) 1 % nasal spray Novi 1 drop into both nostrils daily as needed for congestion tamsulosin (FLOMAX) 0.4 MG capsule Take 0.8 mg by mouth every evening 03/17/2020 thiamine (B-1) 100 MG tablet Take 100 mg by mouth every evening documented as of this encounter Progress Notes * Bibi Rader BSW - 06/12/2024 3:09 PM CDT Care Management Discharge Note Discharge Date: 06/12/2024 Discharge Disposition: Home Discharge Services: [facility] - PT Discharge DME: None Discharge Transportation: family or friend will provide Private pay costs discussed: Not applicable Patient/Family in Agreement with the Plan: yes Handoff Referral Completed: No Additional Information: SW following for discharge planning. Pt has discharge orders to go home today with home care PT. [facility] home care is the accepting agency. Orders sent to [facility] via [employer]. Family to transport. LEXIS Blankenship, BUSINESS INVESTOR Care Coordination [phone] LEXIS Winston * Lucius Solis MD - 06/11/2024 6:48 PM CDT Cross covering hospitalist note I was notified by the RN that the patient had a temperature of 100.4 today. Repeated temp was 99.2.Patient was complaining of shivers. He had a ureteral stent placed on 06/09/2024. He is currently getting ceftriaxone 2 g IV. I am concerned that patient may have bacteremia from complicated UTI. I would obtain blood cultures x 2, . Follow-up on the cultures, Tylenol as needed for hyperpyrexia. Discussed with RN. Lucius Solis MD * Nery Whitt MSW - 06/11/2024 2:18 PM CDT Care Management Discharge Note Discharge Date: 06/11/2024 Discharge Disposition: Home Discharge Services: Home Care PT Discharge Transportation: Private pay costs discussed: Not applicable Does the patient's insurance plan have a 3 day qualifying hospital stay waiver? No Patient/family educated on Medicare website which has current facility and service quality ratings:Yes Education Provided on the Discharge Plan: Yes Persons Notified of Discharge Plans: Patient, Patient/Family in Agreement with the Plan: Yes Handoff Referral Completed: No Additional Information: Notified by PT that they are now recommending TCU. SW met with patient to follow up on TCU recs. Patient is not agreeable to TCU, but is interested in home care PT. Verified insurance and demographics. Initial HC referral sent via HC hub, awaiting accepting agency. SW spoke with patient's Ignacio carrasco, she is in agreement with patient discharging home with HC when medically stable. CC/SW wi ll continue to follow. 1500: [facility] accepted for home care PT. AVS updated. ILA Shirley, [facility] Inpatient Care Coordination [facility] [phone] * Patricia Jefferson PA-C - 06/11/2024 1:00 PM CDT [facility] Medicine Progress Note - Hospitalist Service Date of Admission: 06/08/2024 Assessment & Plan Jed Alamo is a 68 year old male with a history of mild cognitive impairment, chronic kidneydisease, postural hypotension, hyperlipidemia, prediabetes, cerebrovascular disease who presents with diarrhea with workup notable for sepsis secondary to UTI and ureterolithiasis. In the ED he was afebrile, pulse 96, pressure 117/62 and breathing comfortably on room air. Lab work remarkable for creatinine 2.83, BUN 39.3. normal electrolytes except for magnesium 1.5, elevated anion gap of 17, normal LFTs, glucose 115, procal of 18.09, WBC 23.8, Hgb 12.7 and platelets 145. Blood cultures x 1 growing Klebsiella pneumoniae, CT abdomen pelvis shows 3 mm stone in the mid left ureter, hepatic steatosis, bilateral perinephric fat stranding and prostatomegaly with diffuse urinarybladder wall thickening. Given Ceftriaxone 1 gram, Magnesium 2 grams IV, 3 litres of IV fluids and urology consulted urgently who took to OR for stent placement on 06/09 at 630 AM with IP admission. Since admission has been vitally stable without diarrhea. Both blood culture and urine growing Klebsiella pneumonia and he is on Ceftriaxone 2 grams. Due to same organism and stable vital signs repeat blood culture not done. Rea removed on 06/10 with patient able to void without significant PVR. SILVANO continuing to improve. Plan is for patient to discharge the evening of 06/11. Addendum: per chart review patient was noted by RN to be visibly shivering and had low grade fever around 100. Cross cover provider notified and repeat blood culture obtained as well discharge held for patient to be monitored overnight. #Urosepsis with nephrolithiasis #Bacteremia with Klebsiella pneumonia -Presented with complaint of diarrhea, dizziness, weakness and episode of syncope -Found to have acute renal failure with evidence of UTI and elevated inflammatory markers. CT of the abdomen showed evidence of 3 mm left-sided kidney stone as well as perinephric fat stranding -1 blood culture drawn on 06/08 due to national shortage growing Klebsiella pneumoniae resistant to Ampicillin -Urine culture also growing Klebsiella pneumoniae resistant to Ampicillin -Started on ceftriaxone 1 g IV which was increased to 2 g IV on 06/09 -Urology took to the OR for stent placement on 06/09 and has been following, cleared for discharge from their perspective with outpatient follow up for stent -received IVF hydration with NS, discontinue on 06/11 and encourage oral intake -Given national shortage of blood cultures bottles and same organism in both blood/urine will not repeat BC or consult ID. Will need prolonged course of oral antibiotics -Rea removed for trial of void on 06/10, able to void without significant PVR -continue to hold daily ASA #Diarrhea -urology ordered stool studies due to report of diarrhea, enteric and c diff negative, no need for enteric precautions #Acute on chronic kidney disease -History of stage III chronic kidney disease with baseline creatinine of 1.2 -Creatinine on admission was 2.83 suspect related to kidney stone as well as urosepsis -creatinine continues to improve, stop IVFs and encourage oral intake, follow BMP as outpatient to monitor for resolution to baseline #HLP -continue INFORMATION MANAGER Atorvastatin #Hx of postural hypotension -Continue Midodrine #Hypomagnesemia -Replacement ordered #Chronic dizziness/lightheadness #Chronic left eyelid droop -Has seen neurology but no diagnosis as to why this happens Diet: Regular Diet Adult Diet DVT Prophylaxis: Pneumatic Compression Devices Rea Catheter: Not present Lines: None Cardiac Monitoring: None Code Status: Full Code Clinically Significant Risk Factors # Hypomagnesemia: Lowest Mg = 1.6 mg/dL in last 2 days, will replace as needed # Thrombocytopenia: Lowest platelets = 98 in last 2 days, will monitor for bleeding # Hypertension: Noted on problem list # Dementia: noted on problem list # Financial/Environmental Concerns: Disposition Plan Medically Ready for Discharge: Anticipated Today The patient's care was discussed with the Bedside Nurse, Patient, and Patient's Family. Patricia Jefferson PA-C Hospitalist Service [facility] Securely message with [employer] (more info) Text page via [facility] Paging/Directory Interval History Patient sitting up in chair. He reports being able to void since rea removal and confirms urinaryincontinence which is not a new issue. Denies chills, chest pain, shortness of breath, or dysuria. Called and updated the patient's who is agreeable with plan for discharge later today. Physical Exam Vital Signs: Temp: 98.7 ??F (37.1 ??C) Temp src: Oral BP: (!) 159/81 Pulse: 71 Resp: 18 SpO2: 97 % O2 Device: None (Room air) Weight: 160 lbs 14.97 oz General Appearance: A&Ox3, sitting up in chair, answers questions appropriately, NAD Respiratory: CTAB without wheezing or rales Cardiovascular: RRR without murmur or rub GI: soft, nontender, nondistended, normoactive bowel sounds Skin: warm, dry, no lesions in visualized areas Medical Decision Making 40 MINUTES SPENT BY ME on the date of service doing chart review, history, exam, documentation & further activities per the note. Data PAST 24 HR DATA REVIEWED * Rosalina Paris PA-C - 06/11/2024 8:50 AM CDT [facility] Urology Progress Note Assessment and Plan: Assessment: POD 2 Cystoscopy, right retrograde pyelogram, interpretation of fluoroscopic images. Right ureteralstent placement UTI (urinary tract infection) Hypomagnesemia SILVANO (acute kidney injury) (H24) Sepsis due to urinary tract infection (H) Left ureteral stone Plan: -Continue with antibiotics. Would recommend a total of 10 to 14 days of antibiotics for complicatedinfection with evidence of bacteremia. -Continue to monitor kidney function and leukocytosis, while inpatient. Creatinine is slowly improving. Leukocytosis has resolved. -Continue with indwelling ureteral stent. Patient will need likely follow-up procedure to likely include cystoscopy, right ureteroscopy with laser lithotripsy and basketing and right ureteral stent exchange in several weeks after treatment of infection. Our office will coordinate, and orders have been placed. -Strain urine. There is a small possibility of his stone sneaking along the stent and passing. -Possible side effects with an indwelling ureteral stent such as urgency and frequency of urination, dysuria, hematuria, symptoms of urine reflux, and some achiness in the side. Indwelling ureteral stents need to be exchanged every three months or removed by three months. -Okay to discharge from urology perspective. Will plan on signing off. Please contact us with any urological concerns. Rosalina Paris PA-C [facility] Urology [phone] Interval History: Doing okay, but endorses being tired. Patient feels like he has been urinating adequately. Tmax 99.No tachycardia. Urine culture is showing greater than 100,000 CFU per mL of Klebsiella pneumoniae with 2 strains. Sensitivities pending. Blood culture is Klebsiella pneumonia. Creatinine slowly improving, 1.86 EGFR 39 (1.97 EGFR 37 (2.49 eGFR 28)). Leukocytosis resolved, WBC 6.6 (15.7 (15.9)). Denies fevers, chills, nausea, or vomiting. Review of Systems: The 5 point Review of Systems is negative other than noted in the HPI Medications: Current Facility-Administered Medications Medication Dose Route Frequency Provider Last Rate Last Admin acetaminophen (TYLENOL) tablet 650 mg 650 mg Oral Q4H PRN Kory Mcclure MD 650 mg at 06/09/24 0226 Or acetaminophen (TYLENOL) Suppository 650 mg 650 mg Rectal Q4H PRN Kory Mcclure MD [Held by provider] aspirin EC tablet 81 mg 81 mg Oral QAM Alix Guerrero PA-C atorvastatin (LIPITOR) tablet 80 mg 80 mg Oral QPM Alix Guerrero PA-C 80 mg at 06/10/242011 benzocaine-menthol (CHLORASEPTIC) 6-10 MG lozenge 1 lozenge 1 lozenge Buccal Q1H PRN Kory Mcclure MD calcium carbonate (TUMS) chewable tablet 500 mg 500 mg Oral BID PRN Kory Mcclure MD cefTRIAXone (ROCEPHIN) 2 g vial to attach to NS 100 ml bag for ADULTS or NS 50 ml bag for PEDS 2 g Intravenous Q24H Alix Guerrero PA-C 2 g at 06/11/24 0522 disulfiram (ANTABUSE) tablet 250 mg 250 mg Oral Daily Alix Guerrero PA-C 250 mg at 06/11/24 0802 donepezil (ARICEPT) tablet 10 mg 10 mg Oral At Bedtime Alix Guerrero PA-C 10 mg at 06/10/242138 escitalopram (LEXAPRO) tablet 60 mg 60 mg Oral QPM Alix Guerrero PA-C 60 mg at 06/10/242011 HYDROmorphone (DILAUDID) injection 0.2 mg 0.2 mg Intravenous Q2H PRN Kory Mcclure MD HYDROmorphone (DILAUDID) injection 0.4 mg 0.4 mg Intravenous Q2H PRN Kory Mcclure MD lidocaine (LMX4) cream Topical Q1H PRN Kory Mcclure MD lidocaine 1 % 0.1-1 mL 0.1-1 mL Other Q1H PRN Kory Mcclure MD melatonin tablet 3 mg 3 mg Oral At Bedtime PRN Kory Mcclure MD menthol-zinc oxide (CALMOSEPTINE) 0.44-20.6 % ointment OINT Topical 4x Daily PRN Kory Mcclure MD miconazole (MICATIN) 2 % powder Topical BID PRN Kory Mcclure MD midodrine (PROAMATINE) tablet 2.5 mg 2.5 mg Oral BID Alix Guerrero PA-C 2.5 mg at 06/11/24 0802 naloxone (NARCAN) injection 0.2 mg 0.2 mg Intravenous Q2 Min PRN Harvey Novoa DO Or naloxone (NARCAN) injection 0.4 mg 0.4 mg Intravenous Q2 Min PRN Harvey Novoa DO Or naloxone (NARCAN) injection 0.2 mg 0.2 mg Intramuscular Q2 Min PRN Harvey Novoa DO Or naloxone (NARCAN) injection 0.4 mg 0.4 mg Intramuscular Q2 Min PRN Harvey Novoa DO ondansetron (ZOFRAN ODT) ODT tab 4 mg 4 mg Oral Q6H PRN Kroy Mcclure MD Or ondansetron (ZOFRAN) injection 4 mg 4 mg Intravenous Q6H PRN Kory Mcclure MD oxyCODONE (ROXICODONE) tablet 5 mg 5 mg Oral Q4H PRN Kory Mcclure MD oxyCODONE IR (ROXICODONE) half-tab 2.5 mg 2.5 mg Oral Q4H PRN Kory Mcclure MD polyethylene glycol (MIRALAX) Packet 17 g 17 g Oral BID PRN Kory Mcclure MD senna-docusate (SENOKOT-S/PERICOLACE) 8.6-50 MG per tablet 1 tablet 1 tablet Oral BID PRN Kory Mcclure MD Or senna-docusate (SENOKOT-S/PERICOLACE) 8.6-50 MG per tablet 2 tablet 2 tablet Oral BID PRN Kory Mcclure MD sodium chloride (PF) 0.9% PF flush 3 mL 3 mL Intracatheter Q8H Kory Mcclure MD 3 mL at 06/09/24 0328 sodium chloride (PF) 0.9% PF flush 3 mL 3 mL Intracatheter q1 min prn Kory Mcclure MD sodium chloride 0.9 % infusion Intravenous Continuous Alix Guerrero PA-C 100 mL/hr at 06/11/24 0801 New Bag at 06/11/24 0801 tamsulosin (FLOMAX) capsule 0.8 mg 0.8 mg Oral QPM Alix Guerrero PA-C 0.8 mg at 012 thiamine (B-1) tablet 100 mg 100 mg Oral QPM Alix Guerrero PA-C 100 mg at 06/10/242011 Physical Exam: Vitals were reviewed Patient Vitals for the past 8 hrs: BP Temp Temp src Pulse Resp SpO2 06/11/24 0810 128/54 98.5 ??F (36.9 ??C) Oral 89 20 94 % 06/11/24 0500 (!) 155/76 98.7 ??F (37.1 ??C) Oral 81 19 96 % GEN: NAD, flat EYES: EOMI MOUTH: MMM NECK: Supple RESP: Unlabored breathing SKIN: Warm NEURO: AAO Data: No results found for: NTBNPI, NTBNP Lab Results Component Value Date WBC 6.6 06/11/2024 WBC 15.7 (H) 06/10/2024 WBC 15.9 (H) 06/09/2024 HGB 10.2 (L) 06/11/2024 HGB 9.9 (L) 06/10/2024 HGB 10.7 (L) 06/09/2024 HCT 30.7 (L) 06/11/2024 HCT 29.7 (L) 06/10/2024 HCT 32.7 (L) 06/09/2024 MCV 91 06/11/2024 MCV 91 06/10/2024 MCV 93 06/09/2024 PLT 98 (L) 06/11/2024 PLT 107 (L) 06/10/2024 PLT 109 (L) 06/09/2024 Lab Results Component Value Date INR 1.00 12/25/2023 INR 0.95 12/24/2023 INR 1.15 01/20/2022 All cultures: Recent Labs Lab 06/09/24 0048 06/08/244 CULTURE >100,000 CFU/mL Klebsiella pneumoniae* >100,000 CFU/mL Klebsiella pneumoniae* Positive on the 1st day of incubation* Klebsiella pneumoniae* * Kennedi Rodriguez, PT - 06/10/2024 1:45 PM CDT 06/10/24 1300 Appointment Info Signing Clinician's Name / Credentials (PT) Kennedi oRdriguez PT Living Environment People in Home spouse Current Living Arrangements house Home Accessibility stairs to enter home;stairs within home Number of Stairs, Main Entrance 3 Stair Railings, Main Entrance railings on both sides of stairs Number of Stairs, Within Home, Primary seven Stair Railings, Within Home, Primary railings safe and in good condition Transportation Anticipated family or friend will provide Living Environment Comments multi level home pt can remain on the first floor Self-Care Usual Activity Tolerance good Current Activity Tolerance moderate Equipment Currently Used at Home none Fall history within last six months yes Number of times patient has fallen within last six months 3 Activity/Exercise/Self-Care Comment indep w ADLS, very sedentary per spouse, limited interest in any activities, has WW to use if needed General Information Onset of Illness/Injury or Date of Surgery 06/10/24 Patient/Family Therapy Goals Statement (PT) spouse would like pt to be more active Pertinent History of Current Problem (include personal factors and/or comorbidities that impact thePOC) 68 year old male with a history of mild cognitive impairment, chronic kidney disease, posturalhypotension, hyperlipidemia, prediabetes, cerebrovascular disease who presents with diarrhea with workup notable for sepsis secondary to UTI and ureterolithiasis. Existing Precautions/Restrictions fall Cognition Affect/Mental Status (Cognition) flat/blunted affect Orientation Status (Cognition) oriented x 4 Follows Commands (Cognition) follows one-step commands;50-74% accuracy;repetition of directions required;verbal cues/prompting required (OSAGE, hearing aides not present) Behavioral Issues withdrawn Posture Posture Forward head position;Protracted shoulders Range of Motion (ROM) Range of Motion ROM is WFL Strength (Manual Muscle Testing) Strength (Manual Muscle Testing) Deficits observed during functional mobility Bed Mobility Comment, (Bed Mobility) CGA supine to sit Transfers Comment, (Transfers) CGA sit to stand from chair, heavy reliance on UE assist Gait/Stairs (Locomotion) Comment, (Gait/Stairs) CGA to amb 10 feet, dec step length slow pace unsteady reaching for support in room, dec L stance Balance Balance Comments unsteady in standing and walking with narrowed WARREN Clinical Impression Criteria for Skilled Therapeutic Intervention Yes, treatment indicated PT Diagnosis (PT) UTI Influenced by the following impairments dec strength and endurance, imparied gait and balance Functional limitations due to impairments impaired mobility Clinical Presentation (PT Evaluation Complexity) stable Clinical Presentation Rationale clinical judgement Clinical Decision Making (Complexity) low complexity Planned Therapy Interventions (PT) balance training;gait training;stair training;strengthening;transfer training Risk & Benefits of therapy have been explained evaluation/treatment results reviewed;care plan/treatment goals reviewed;risks/benefits reviewed PT Discharge Planning PT Discharge Recommendation (DC Rec) home with home care physical therapy PT Rationale for DC Rec Pt mobilzing below an indep baseline, req assist or close supervision for mobility, reduced activity tolerance, spouse reporting 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 Right ureteralstent placement UTI (urinary tract infection) Hypomagnesemia SILVANO (acute kidney injury) (H24) Sepsis due to urinary tract infection (H) Left ureteral stone Plan: -Continue with IV antibiotics. Follow cultures. Transition to culture specific as available and oral as available and when clinically appropriate. -Continue to monitor kidney function and leukocytosis. -Continue with indwelling ureteral stent. Patient will need likely follow-up procedure to likely include cystoscopy, right ureteroscopy with laser lithotripsy and basketing and right ureteral stent exchange in several weeks after treatment of infection. Our office will coordinate, and orders have been placed. -Strain urine. There is a small possibility of his stone sneaking along the stent and passing. -Possible side effects with an indwelling ureteral stent such as urgency and frequency of urination, dysuria, hematuria, symptoms of urine reflux, and some achiness in the side. Indwelling ureteral stents need to be exchanged every three months or removed by three months. -Okay to discontinue Rea catheter. -Anticipate possible discharge tomorrow, pending improvement in kidney function and leukocytosis. Rosalina Paris PA-C [facility] Urology [phone] Interval History: Doing okay. Blood culture showed Klebsiella pneumonia. Urine culture: Greater than 100,000 CFU per mL of Ivon pneumonia.. Patient denies nausea, vomiting, fevers, chills. WBC 15.7 (15.9). Creatinine 1.97 EGFR 37 (2.49 EGFR of 28). Baseline creatinine around 1.1. Rea catheter in place draining clear peach colored urine. Patient afebrile without tachycardia. Review of Systems: The 5 point Review of Systems is negative other than noted in the HPI Medications: Current Facility-Administered Medications Medication Dose Route Frequency Provider Last Rate Last Admin acetaminophen (TYLENOL) tablet 650 mg 650 mg Oral Q4H PRN Kory Mcclure MD 650 mg at 06/09/24 0226 Or acetaminophen (TYLENOL) Suppository 650 mg 650 mg Rectal Q4H PRN Kory Mcclure MD [Held by provider] aspirin EC tablet 81 mg 81 mg Oral QAM Alix Guerrero PA-C atorvastatin (LIPITOR) tablet 80 mg 80 mg Oral QPM Alix Guerrero PA-C 80 mg at 06/09/242011 benzocaine-menthol (CHLORASEPTIC) 6-10 MG lozenge 1 lozenge 1 lozenge Buccal Q1H PRN Kory Mcclure MD calcium carbonate (TUMS) chewable tablet 500 mg 500 mg Oral BID PRN Kory Mcclure MD cefTRIAXone (ROCEPHIN) 2 g vial to attach to NS 100 ml bag for ADULTS or NS 50 ml bag for PEDS 2 g Intravenous Q24H Alix Guerrero PA-C 2 g at 06/10/24 0603 disulfiram (ANTABUSE) tablet 250 mg 250 mg Oral Daily Alix Guerrero PA-C 250 mg at 06/10/24 0836 donepezil (ARICEPT) tablet 10 mg 10 mg Oral At Bedtime Alix Guerrero PA-C 10 mg at 06/09/24 2140 escitalopram (LEXAPRO) tablet 60 mg 60 mg Oral QPM Alix Guerrero PA-C 60 mg at 06/09/242010 HYDROmorphone (DILAUDID) injection 0.2 mg 0.2 mg Intravenous Q2H PRN Kory Mcclure MD HYDROmorphone (DILAUDID) injection 0.4 mg 0.4 mg Intravenous Q2H PRN Kory Mcclure MD lidocaine (LMX4) cream Topical Q1H PRN Kory Mcclure MD lidocaine 1 % 0.1-1 mL 0.1-1 mL Other Q1H PRN Kory Mcclure MD melatonin tablet 3 mg 3 mg Oral At Bedtime PRN Kory Mcclure MD menthol-zinc oxide (CALMOSEPTINE) 0.44-20.6 % ointment OINT Topical 4x Daily PRN Kory Mcclure MD miconazole (MICATIN) 2 % powder Topical BID PRN Kory Mcclure MD midodrine (PROAMATINE) tablet 2.5 mg 2.5 mg Oral BID Alix Guerrero PA-C naloxone (NARCAN) injection 0.2 mg 0.2 mg Intravenous Q2 Min PRN Harvey Novoa DO Or naloxone (NARCAN) injection 0.4 mg 0.4 mg Intravenous Q2 Min PRN Harvey Novoa DO Or naloxone (NARCAN) injection 0.2 mg 0.2 mg Intramuscular Q2 Min PRN Harvey Novoa DO Or naloxone (NARCAN) injection 0.4 mg 0.4 mg Intramuscular Q2 Min PRN Harvey Novoa DO ondansetron (ZOFRAN ODT) ODT tab 4 mg 4 mg Oral Q6H PRN Kory Mcclure MD Or ondansetron (ZOFRAN) injection 4 mg 4 mg Intravenous Q6H PRN Kory Mcclure MD oxyCODONE (ROXICODONE) tablet 5 mg 5 mg Oral Q4H PRN Kory Mcclure MD oxyCODONE IR (ROXICODONE) half-tab 2.5 mg 2.5 mg Oral Q4H PRN Kory Mcclure MD polyethylene glycol (MIRALAX) Packet 17 g 17 g Oral BID PRN Kory Mcclure MD senna-docusate (SENOKOT-S/PERICOLACE) 8.6-50 MG per tablet 1 tablet 1 tablet Oral BID PRN Kory Mcclure MD Or senna-docusate (SENOKOT-S/PERICOLACE) 8.6-50 MG per tablet 2 tablet 2 tablet Oral BID PRN Kory Mcclure MD sodium chloride (PF) 0.9% PF flush 3 mL 3 mL Intracatheter Q8H Kory Mcclure MD 3 mL at 06/09/24 0328 sodium chloride (PF) 0.9% PF flush 3 mL 3 mL Intracatheter q1 min prn Kory Mcclure MD sodium chloride 0.9 % infusion Intravenous Continuous Alix Guerrero PA-C 100 mL/hr at 06/10/24 0334 New Bag at 06/10/24 0334 tamsulosin (FLOMAX) capsule 0.8 mg 0.8 mg Oral QPM Alix Guerrero PA-C 0.8 mg at thiamine (B-1) tablet 100 mg 100 mg Oral QPM Alix Guerrero PA-C 100 mg at 06/09/242011 Physical Exam: Vitals were reviewed Patient Vitals for the past 8 hrs: BP Temp Temp src Pulse Resp SpO2 06/10/24 0828 126/62 97.9 ??F (36.6 ??C) Oral 64 18 94 % 06/10/24 0318 125/64 98 ??F (36.7 ??C) Oral 72 18 92 % GEN: NAD, flat EYES: EOMI MOUTH: MMM NECK: Supple RESP: Unlabored breathing SKIN: Warm NEURO: AAO URO: Rea catheter in place draining clear peach urine. Data: No results found for: NTBNPI, NTBNP Lab Results Component Value Date WBC 15.7 (H) 06/10/2024 WBC 15.9 (H) 06/09/2024 WBC 23.8 (H) 06/08/2024 HGB 9.9 (L) 06/10/2024 HGB 10.7 (L) 06/09/2024 HGB 12.7 (L) 06/08/2024 HCT 29.7 (L) 06/10/2024 HCT 32.7 (L) 06/09/2024 HCT 37.8 (L) 06/08/2024 MCV 91 06/10/2024 MCV 93 06/09/2024 MCV 89 06/08/2024 PLT 107 (L) 06/10/2024 PLT 109 (L) 06/09/2024 PLT 145 (L) 06/08/2024 Lab Results Component Value Date INR 1.00 12/25/2023 INR 0.95 12/24/2023 INR 1.15 01/20/2022 All cultures: Recent Labs Lab 06/09/24 0048 06/08/242223 CULTURE Culture in progress >100,000 CFU/mL Klebsiella pneumoniae* Positive on the 1st day of incubation* Klebsiella pneumoniae* * Alix Guerrero PA-C - 06/10/2024 9:58 AM CDT [facility] Medicine Progress Note - Hospitalist Service Date of Admission: 06/08/2024 Assessment & Plan Jed Alamo is a 68 year old male with a history of mild cognitive impairment, chronic kidneydisease, postural hypotension, hyperlipidemia, prediabetes, cerebrovascular disease who presents with diarrhea with workup notable for sepsis secondary to UTI and ureterolithiasis. In the ED he was afebrile, pulse 96, pressure 117/62 and breathing comfortably on room air. Lab work remarkable for creatinine 2.83, BUN 39.3. normal electrolytes except for magnesium 1.5, elevated anion gap of 17, normal LFTs, glucose 115, procal of 18.09, WBC 23.8, Hgb 12.7 and platelets 145. Blood cultures x 1 growing Klebsiella pneumoniae, CT abdomen pelvis shows 3 mm stone in the mid left ureter, hepatic steatosis, bilateral perinephric fat stranding and prostatomegaly with diffuse urinarybladder wall thickening. Given Ceftriaxone 1 gram, Magnesium 2 grams IV, 3 litres of IV fluids and urology consulted urgently who took to OR for stent placement on 06/09 at 630 AM with IP admission. Since admission has been vitally stable without diarrhea. Both blood culture and urine growing Klebsiella pneumonia and he is on Ceftriaxone 2 grams. Due to same organism and stable vital signs repeat blood culture not done. Awaiting urology recs to see if rea can come out. SILVANO improving. Possible discharge tomorrow if rea out and SILVANO improved. # Urosepsis with nephrolithiasis # Bacteremia with Klebsiella pneumonia -Presented with complaint of diarrhea, dizziness, weakness and episode of syncope -Found to have acute renal failure with evidence of UTI and elevated inflammatory markers. CT of the abdomen showed evidence of 3 mm left-sided kidney stone as well as perinephric fat stranding -1 blood culture drawn due to national shortage growing Klebsiella pneumoniae -Urine culture also growing Klebsiella pneumoniae -Started on ceftriaxone 1 g IV which was increased to 2 g IV on 06/09 -Urology took to the OR for stent placement on 06/09 at 6:30 AM and patient is vitally stable -Continue normal saline at 100 ml/hr -Given national shortage of blood cultures bottles and same organism in both blood/urine will not repeat BC or consult ID. Will need prolonged course of oral antibiotics -Rea removed for trial of void on 06/10, holding Aspirin # Diarrhea -No diarrhea since admission. Will monitor for recurrence but if there is none we will discontinue enteric precautions and remove stool testing # Acute on chronic kidney disease -History of stage III chronic kidney disease with baseline creatinine of 1.2 -Creatinine on admission was 2.83 suspect related to kidney stone as well as urosepsis -Hydrate with normal saline at 100 mL/h, avoid nephrotoxins and recheck in a.m. # HLP -Holding atorvastatin for now, likely resume tomorrow #Hx of postural hypotension -Continue Midodrine # Hypomagnesemia -Replacement ordered #Chronic dizziness/lightheadness #Chronic left eyelid droop -Has seen neurology but no diagnosis as to why this happens Diet: Regular Diet Adult DVT Prophylaxis: Pneumatic Compression Devices Rea Catheter: PRESENT, indication: Surgical procedure Lines: None Cardiac Monitoring: None Code Status: Full Code Diet: Regular Diet Adult DVT Prophylaxis: Pneumatic Compression Devices Rea Catheter: PRESENT, indication: Surgical procedure Lines: None Cardiac Monitoring: None Code Status: Full Code Clinically Significant Risk Factors # Hypocalcemia: Lowest Ca = 7.7 mg/dL in last 2 days, will monitor and replace as appropriate # Hypomagnesemia: Lowest Mg = 1.5 mg/dL in last 2 days, will replace as needed # Thrombocytopenia: Lowest platelets = 107 in last 2 days, will monitor for bleeding # Hypertension: Noted on problem list # Dementia: noted on problem list # Financial/Environmental Concerns: Disposition Plan Medically Ready for Discharge: Anticipated Tomorrow The patient's care was discussed with the Bedside Nurse, Mannequin Mounter/Manager Of Merchandising, Patient, and Patient's Family. Alix Guerrero PA-C Hospitalist Service [facility] Securely message with [employer] (more info) Text page via [facility] Paging/Directory Interval History Has no complaints for me. Denies shortness of breath, cough, chest pain, abdominal pain, fever, Physical Exam Vital Signs: Temp: 97.9 ??F (36.6 ??C) Temp src: Oral BP: 126/62 Pulse: 64 Resp: 18 SpO2: 94 % O2 Device: None (Room air) Weight: 160 lbs 14.97 oz General Appearance: Alert and orientated x 3 Respiratory: CTAB Cardiovascular: RRR without murmur GI: Bowel sounds are present without tenderness Skin: No rash or open sores Medical Decision Making 45 MINUTES SPENT BY ME on the date of service doing chart review, history, exam, documentation & further activities per the note. Data I have personally reviewed the following data over the past 24 hrs: 15.7 (H) \ 9.9 (L) / 107 (L) 137 111 (H) 38.5 (H) / 131 (H) 4.0 15 (L) 1.97 (H) \ Imaging results reviewed over the past 24 hrs: No results found for this or any previous visit (from the past 24 hour(s)). * Alix Guerrero PA-C - 06/09/2024 11:52 AM CDT [facility] Medicine Progress Note - Hospitalist Service Date of Admission: 06/08/2024 Assessment & Plan Jed Alamo is a 68 year old male with a history of mild cognitive impairment, chronic kidneydisease, postural hypotension, hyperlipidemia, prediabetes, cerebrovascular disease who presents with diarrhea with workup notable for sepsis secondary to UTI and ureterolithiasis. In the ED he was afebrile, pulse 96, pressure 117/62 and breathing comfortably on room air. Lab work remarkable for creatinine 2.83, BUN 39.3. normal electrolytes except for magnesium 1.5, elevated anion gap of 17, normal LFTs, glucose 115, procal of 18.09, WBC 23.8, Hgb 12.7 and platelets 145. Blood cultures x 1 growing Klebsiella pneumoniae, CT abdomen pelvis shows 3 mm stone in the mid left ureter, hepatic steatosis, bilateral perinephric fat stranding and prostatomegaly with diffuse urinarybladder wall thickening. Given Ceftriaxone 1 gram, Magnesium 2 grams IV, 3 litres of IV fluids and urology consulted urgently who took to OR for stent placement on 06/09 at 630 AM with IP admission. Since admission has been vitally stable without diarrhea. # Urosepsis with nephrolithiasis # Bacteremia with Klebsiella pneumonia -Presented with complaint of diarrhea, dizziness, weakness and episode of syncope -Found to have acute renal failure with evidence of UTI and elevated inflammatory markers. CT of the abdomen showed evidence of 3 mm left-sided kidney stone as well as perinephric fat stranding -1 blood culture drawn due to national shortage growing Klebsiella pneumoniae -Started on ceftriaxone 1 g IV which was increased to 2 g IV on 06/09 -Urology took to the OR for stent placement on 06/09 at 6:30 AM and patient is vitally stable -Continue normal saline at 100 ml/hr -Given national shortage of blood cultures bottles will await urine culture to determine if repeat blood culture is needed but will need extended course of antibiotics -Rea in place with red urine, holding Aspirin, likely remove tomorrow # Diarrhea -No diarrhea since admission. Will monitor for recurrence but if there is none we will discontinue enteric precautions and remove stool testing # Acute on chronic kidney disease -History of stage III chronic kidney disease with baseline creatinine of 1.2 -Creatinine on admission was 2.83 suspect related to kidney stone as well as urosepsis -Hydrate with normal saline at 100 mL/h, avoid nephrotoxins and recheck in a.m. # Postural hypotenson -Continue midodrine # HLP -Holding atorvastatin for now, likely resume tomorrow # Hypomagnesemia -Replacement ordered #Chronic dizziness/lightheadness #Chronic left eyelid droop -Has seen neurology but no diagnosis as to why this happens Diet: Regular Diet Adult DVT Prophylaxis: Pneumatic Compression Devices Rea Catheter: PRESENT, indication: Surgical procedure Lines: None Cardiac Monitoring: None Code Status: Full Code Clinically Significant Risk Factors Present on Admission # Hypocalcemia: Lowest Ca = 7.7 mg/dL in last 2 days, will monitor and replace as appropriate # Hypomagnesemia: Lowest Mg = 1.5 mg/dL in last 2 days, will replace as needed # Drug Induced Platelet Defect: home medication list includes an antiplatelet medication # Hypertension: Noted on problem list # Dementia: noted on problem list # Anemia: based on hgb <11 # Financial/Environmental Concerns: Disposition Plan Medically Ready for Discharge: Anticipated in 2-4 Days The patient's care was discussed with the Bedside Nurse, Patient, and Patient's Family. Alix Guerrero PA-C Hospitalist Service [facility] Securely message with [employer] (more info) Text page via [employer] Paging/Directory Interval History Reports he feels better today. No abdominal/flank pain. No diarrhea since yesterday. No breathing issues. Has chronic dizziness/lightheadedness. Physical Exam Vital Signs: Temp: 98.9 ??F (37.2 ??C) Temp src: Oral BP: 136/70 Pulse: 82 Resp: 18 SpO2: 94 % O2 Device: None (Room air) Oxygen Delivery: 8 LPM Weight: 160 lbs 14.97 oz General Appearance: Alert and orientated x 3. Left eye droop (he reports this is chronic) Respiratory: CTAB Cardiovascular: RRR without murmur GI: bowel sounds are present without tenderness Skin: No rash or open sores Other: No lower extremity swelling. Rea with red urine Medical Decision Making 55 MINUTES SPENT BY ME on the date of service doing chart review, history, exam, documentation & further activities per the note. Data I have personally reviewed the following data over the past 24 hrs: 15.9 (H) \ 10.7 (L) / 109 (L) 138 107 38.3 (H) / 100 (H) 4.1 17 (L) 2.49 (H) \ ALT: 39 AST: 18 AP: 140 TBILI: 0.6 ALB: 3.6 TOT PROTEIN: 6.7 LIPASE: N/A Procal: 18.09 (HH) CRP: N/A Lactic Acid: 1.0 Imaging results reviewed over the past 24 hrs: Recent Results (from the past 24 hour(s)) CT Abdomen Pelvis w/o Contrast Narrative EXAM: CT ABDOMEN PELVIS W/O CONTRAST LOCATION: [facility] DATE: 06/08/2024 INDICATION: V/d, renal failure, sepsis. COMPARISON: CT abdomen and pelvis on 12/09/2023. TECHNIQUE: CT scan of the abdomen and pelvis was performed without intravenous contrast Multiplanarreformats were obtained. Dose reduction techniques were used. [...] significantly changed as compared to 12/09/2023 exam. Impression IMPRESSION: 1. 3 mm stone in the mid left ureter with associated mild hydronephrosis. Multiple other small nonobstructing intrarenal stones. No left ureteral stone or hydronephrosis. 2. Hepatic steatosis. 3. Bilateral perinephric fat stranding, of indeterminate etiology, not significantly changed as compared to 12/09/2023 exam. 4. Prostatomegaly with diffuse urinary bladder wall thickening, nonspecific, can be seen with underdistention versus chronic bladder outlet obstruction versus chronic cystitis. XR Chest 2 Views Narrative EXAM: XR CHEST 2 VIEWS LOCATION: [facility] DATE: 06/08/2024 INDICATION: sepsis COMPARISON: 12/09/2023 Impression IMPRESSION: Heart size is normal. Lungs are clear bilaterally. Mediastinum and visualized bony structures are unremarkable. XR Surgery KATY L/T 5 Min Fluoro w Stills Narrative This exam was marked as non-reportable because it will not be read by a radiologist or a [place] non-radiologist provider. * Rosalina Paris PA-C - 06/09/2024 10:00 AM CDT [facility] Urology Progress Note Assessment and Plan: Assessment: POD 0 Cystoscopy, right retrograde pyelogram, interpretation of fluoroscopic images. Right ureteralstent placement UTI (urinary tract infection) Hypomagnesemia SILVANO (acute kidney injury) (H24) Sepsis due to urinary tract infection (H) Left ureteral stone Plan: -Continue with IV antibiotics. Follow cultures. Transition to culture specific as available and oral as available and when clinically appropriate. -Continue to monitor kidney function and leukocytosis. -Continue with indwelling ureteral stent. Patient will need likely follow-up procedure to likely include cystoscopy, right ureteroscopy with laser lithotripsy and basketing and right ureteral stent exchange in several weeks after treatment of infection. Our office will coordinate. -Strain urine. There is a small possibility of his stone sneaking along the stent and passing. -Possible side effects with an indwelling ureteral stent such as urgency and frequency of urination, dysuria, hematuria, symptoms of urine reflux, and some achiness in the side. Indwelling ureteral stents need to be exchanged every three months or removed by three months. -Continue with Rea catheter. Anticipate likely discontinuation tomorrow if leukocytosis and kidney function both continue to improve. -Will continue to follow along. Rosalina Paris PA-C [facility] Urology [phone] Interval History: Doing okay. Currently denies any nausea, vomiting, fevers, chills. Has not had these since he has been on the floor. Mild tachycardia. Tmax of 102.4. On IV Rocephin. He does endorse decreased appetite. Initially had fevers and chills on presentation. Blood culture is positive for gram-negative bacilli. Urine culture is in process. Creatinine 2.49 EGFR of 28 (2.83 EGFR of 24). WBC 15.9 (23.8). Rea catheter in place draining clear reddish-yellow urine. Review of Systems: The 5 point Review of Systems is negative other than noted in the HPI Medications: Current Facility-Administered Medications Medication Dose Route Frequency Provider Last Rate Last Admin acetaminophen (TYLENOL) tablet 650 mg 650 mg Oral Q4H PRN Kory Mcclure MD 650 mg at 06/09/24 0226 Or acetaminophen (TYLENOL) Suppository 650 mg 650 mg Rectal Q4H PRN Kory Mcclure MD benzocaine-menthol (CHLORASEPTIC) 6-10 MG lozenge 1 lozenge 1 lozenge Buccal Q1H PRN Kory Mcclure MD calcium carbonate (TUMS) chewable tablet 500 mg 500 mg Oral BID PRN Kory Mcclure MD [START ON 06/10/2024] cefTRIAXone (ROCEPHIN) 2 g vial to attach to NS 100 ml bag for ADULTS or NS 50ml bag for PEDS 2 g Intravenous Q24H Alix Guerrero PA-C HYDROmorphone (DILAUDID) injection 0.2 mg 0.2 mg Intravenous Q2H PRN Kory Mcclure MD HYDROmorphone (DILAUDID) injection 0.4 mg 0.4 mg Intravenous Q2H PRN Kory Mcclure MD lactated ringers infusion Intravenous Continuous Kory Mcclure MD Stopped at 06/09/24 0916 lidocaine (LMX4) cream Topical Q1H PRN Kory Mcclure MD lidocaine 1 % 0.1-1 mL 0.1-1 mL Other Q1H PRN Kory Mcclure MD magnesium sulfate 2 g in 50 mL sterile water intermittent infusion 2 g Intravenous Once Alix Guerrero PA-C 50 mL/hr at 06/09/24 1032 2 g at 06/09/24 1032 melatonin tablet 3 mg 3 mg Oral At Bedtime PRN Kory Mcclure MD menthol-zinc oxide (CALMOSEPTINE) 0.44-20.6 % ointment OINT Topical 4x Daily PRN Kory Mcclure MD miconazole (MICATIN) 2 % powder Topical BID PRN Kory Mcclure MD naloxone (NARCAN) injection 0.2 mg 0.2 mg Intravenous Q2 Min PRN Bright, Harvey Dandre, DO Or naloxone (NARCAN) injection 0.4 mg 0.4 mg Intravenous Q2 Min PRN Harvey Novoa, Or naloxone (NARCAN) injection 0.2 mg 0.2 mg Intramuscular Q2 Min PRN Harvey Novoa, Or naloxone (NARCAN) injection 0.4 mg 0.4 mg Intramuscular Q2 Min PRN Harvey Novoa DO ondansetron (ZOFRAN ODT) ODT tab 4 mg 4 mg Oral Q6H PRN Kory Mcclure MD Or ondansetron (ZOFRAN) injection 4 mg 4 mg Intravenous Q6H PRN Kory Mcclure MD oxyCODONE (ROXICODONE) tablet 5 mg 5 mg Oral Q4H PRN Kory Mcclure MD oxyCODONE IR (ROXICODONE) half-tab 2.5 mg 2.5 mg Oral Q4H PRN Kory Mcclure MD polyethylene glycol (MIRALAX) Packet 17 g 17 g Oral BID PRN Kory Mcclure MD senna-docusate (SENOKOT-S/PERICOLACE) 8.6-50 MG per tablet 1 tablet 1 tablet Oral BID PRN Kory Mcclure MD Or senna-docusate (SENOKOT-S/PERICOLACE) 8.6-50 MG per tablet 2 tablet 2 tablet Oral BID PRN Kory Mcclure MD sodium chloride (PF) 0.9% PF flush 3 mL 3 mL Intracatheter Q8H Kory Mcclure MD 3 mL at 06/09/24 0328 sodium chloride (PF) 0.9% PF flush 3 mL 3 mL Intracatheter q1 min prn Kory Mcclure MD Physical Exam: Vitals were reviewed Patient Vitals for the past 8 hrs: BP Temp Temp src Pulse Resp SpO2 Weight 06/09/24 1010 136/70 98.9 ??F (37.2 ??C) Oral 82 18 94 % -- 06/09/24 0930 130/72 98.9 ??F (37.2 ??C) Oral 80 18 92 % -- 06/09/24 0915 128/71 -- -- 80 -- 91 % -- 06/09/24 0900 128/71 98.7 ??F (37.1 ??C) Oral 80 19 92 % -- 06/09/24 0848 130/69 99 ??F (37.2 ??C) Oral 82 18 91 % -- 06/09/24 0833 128/73 99.4 ??F (37.4 ??C) Oral 87 18 94 % -- 06/09/24 0816 124/73 99 ??F (37.2 ??C) Oral 94 18 92 % -- 06/09/24 0803 137/73 98.8 ??F (37.1 ??C) Oral 92 18 93 % 73 kg (160 lb 15 oz) 06/09/24 0730 (!) 144/79 97.8 ??F (36.6 ??C) Temporal 97 18 93 % -- 06/09/24 0715 133/73 -- -- 97 19 100 % -- 06/09/24 0712 139/76 -- -- 97 19 100 % -- 06/09/24 0705 130/72 -- -- 98 19 100 % -- 06/09/24 0700 138/74 -- -- 96 19 100 % -- 06/09/24 0658 138/74 97.2 ??F (36.2 ??C) Temporal 96 19 100 % -- 06/09/24 0534 -- 98.9 ??F (37.2 ??C) Temporal 79 20 98 % -- 06/09/24 0500 125/63 -- -- 85 -- 96 % -- 06/09/24 0400 123/59 -- -- 95 -- 94 % -- GEN: NAD, sitting up in bed EYES: EOMI MOUTH: MMM NECK: Supple RESP: Unlabored breathing SKIN: Warm NEURO: AAO URO: Rea catheter in place draining clear reddish yellow urine. Data: No results found for: NTBNPI, NTBNP Lab Results Component Value Date WBC 15.9 (H) 06/09/2024 WBC 23.8 (H) 06/08/2024 WBC 6.9 03/09/2024 HGB 10.7 (L) 06/09/2024 HGB 12.7 (L) 06/08/2024 HGB 12.6 (L) 03/09/2024 HCT 32.7 (L) 06/09/2024 HCT 37.8 (L) 06/08/2024 HCT 37.2 (L) 03/09/2024 MCV 93 06/09/2024 MCV 89 06/08/2024 MCV 91 03/09/2024 PLT 109 (L) 06/09/2024 PLT 145 (L) 06/08/2024 PLT 236 03/09/2024 Lab Results Component Value Date INR 1.00 12/25/2023 INR 0.95 12/24/2023 INR 1.15 01/20/2022 All cultures: Recent Labs Lab 06/08/242223 CULTURE Positive on the 1st day of incubation* Gram negative bacilli* * Johnny Luna RN - 06/09/2024 7:32 AM CDT Spoke with Dr Mcclure regarding patient's rea and when to remove. Per Dr Mcclure; leave rea in until at least tomorrow 06/10. documented in this encounter H&P Notes * Harvey Novoa DO - 06/09/2024 2:51 AM CDT [facility] Hospitalist H&P Name: Jed Alamo Date of : 1955 Age: [age] year old Date of admission: 06/08/2024 Primary care provider: Nathalie Tate Assessment and Plan: Jed Alamo is a 68 year old male with a history of mild cognitive impairment, chronic kidneydisease, hypertension, hyperlipidemia, prediabetes, cerebrovascular disease who presents with diarrhea with workup notable for sepsis secondary to UTI and ureterolithiasis. Problem list: Sepsis secondary to urinary tract infection in the context of ureterolithiasis: The patient meets criteria for sepsis with a pulse of 141 and leukocytosis of 23.8. He is afebrile but blood pressure is stable. Lactate is normal. Procalcitonin is very elevated at 18 indicating an almost certain bacterial infection. Urinalysis is grossly abnormal and suggestive of UTI. CT shows a 3 mm stone in the mid left ureter with associated mild hydronephrosis. Urology was contacted from the ED and will plan on cystoscopy and stent placement in the morning. He is currently hemodynamically stable but if there is evidence of deterioration we will contact urology immediately for a more urgent intervention. Will continue ceftriaxone and IV fluids overnight. Acute kidney injury on stage III chronic kidney disease: Baseline creatinine appears to be about 1.2. Current creatinine is about 2.8. He does indicate that he has been making urine. We will continuefluid resuscitation and management of his sepsis while closely monitoring urine output and renal function. Avoid further nephrotoxins. Diarrhea: Unclear etiology. Ongoing for the past 24 hours. Denies recent antibiotic use. Will checkenteric panel and C. difficile study. Hypomagnesemia: Start the magnesium replacement protocol. Hypertension: Blood pressure stable. Will hold prior to admission metoprolol and lisinopril given evolving sepsis and acute kidney injury. Hyperlipidemia: Hold prior to admission atorvastatin for now. Clinically Significant Risk Factors Present on Admission # Hypomagnesemia: Lowest Mg = 1.5 mg/dL in last 2 days, will replace as needed # Drug Induced Platelet Defect: home medication list includes an antiplatelet medication # Hypertension: Noted on problem list # Dementia: noted on problem list # Financial/Environmental Concerns: Code status: Full. Admit to inpatient status. Prophylaxis: PCD's. Disposition: Home in 2 to 3 days. 80 MINUTES SPENT BY ME on the date of service doing chart review, history, exam, documentation & further activities per the note. Chief Complaint: Diarrhea. History of Present Illness: Jed Alamo is a 68 year old male who presents with diarrhea. History was obtained from my discussion with the patient at the bedside. I also discussed the case with the ED provider. The electronic medical record was also reviewed. The patient indicates that for the past 24 hours he has noticed diarrhea. He describes this as liquid stool and not at all formed. He denies any fevers. He denies any abdominal pain. No flank pain orback pain. He also reports losing consciousness in the hot shower yesterday. He has soiled himself of few times. He denies any dizziness, lightheadedness, chest pain, shortness of breath or cough. His ultimately brought him to the doctors hospital for evaluation. Here in the ED his temperature is 97.6, heart rate 141, blood pressure 119/73, respirate 18 and oxygen saturation 95% on room air. Labs show normal basic metabolic panel, liver function tests, lactate and CBC with the exception of a BUN of 39, creatinine 2.8, white blood cells 23.8, platelets 145 and hemoglobin 12.7. Urinalysis grossly abnormal. CT as outlined below. Past Medical History: Past Medical History: Diagnosis Date ALCOHOL ABUSE, IN REMISSION AA weekly Arthritis Chronic kidney disease Eczema ED (erectile dysfunction) HTN (hypertension), benign 2003 Hyperlipidemia 2005 Prediabetes 2008 Past Surgical History: Past Surgical History: Procedure Laterality Date HC REMOVE TONSILS/ADENOIDS,<12 Y/O [facility] ARTHROTOMY W/OPEN MENISCUS REPAIR 2007 right -TRIA Social History: Social History Tobacco Use Smoking status: Former Current packs/day: 0.50 Average packs/day: 0.5 packs/day for 54.6 years (27.3 ttl pk-yrs) Types: Cigarettes, Other Start date: 10/20/1969 Passive exposure: Past Smokeless tobacco: Never Tobacco comments: Recently stopped 12/09/23 Substance Use Topics Alcohol use: No Alcohol/week: 0.0 standard drinks of alcohol Comment: 100ml or more daily; recent relapse 08/18/15 Family History: The family history was fully reviewed and non-contributory in this case. Allergies: Allergies Allergen Reactions Donepezil Diarrhea Hospitalized for diarrhea/dehydration Sulfa Antibiotics Rash Medications: Prior to Admission medications Medication Sig Last Dose Taking? Auth Provider Usp End Date aspirin 81 MG EC tablet Take 81 mg by mouth every morning Unknown, Entered By History No atorvastatin (LIPITOR) 80 MG tablet Take 1 tablet (80 mg) by mouth every evening Nathalie Tate MD Yes cyanocobalamin (CYANOCOBALAMIN) 1000 MCG/ML injection Inject 1 mL into the muscle every 30 days Unknown, Entered By History disulfiram (ANTABUSE) 250 MG tablet Take 1 tablet (250 mg) by mouth daily Nathalie Tate MD Yes donepezil (ARICEPT) 5 MG tablet Take 1 tablet (5 mg) by mouth at bedtime Sabrina Boss APRN WORK CAR OPERATOR No escitalopram (LEXAPRO) 20 MG tablet Take 60 mg by mouth every evening Alton Alonzo MD Yes melatonin 3 MG tablet Take 1 tablet (3 mg) by mouth nightly as needed for sleep Love, Sabrina Morrell APRN CNP midodrine (PROAMATINE) 2.5 MG tablet Take 1 tablet (2.5 mg) by mouth 2 times daily Hold if SBP<130. Do not take prior to sleeping Love, Sabrina Morrell APRN CNP Multiple Vitamins-Iron (TAB-A-CATRACHO/IRON) TABS Take 1 capsule by mouth daily Alton Alonzo MD phenylephrine (LEATHA-SYNEPHRINE) 1 % nasal spray Novi 1 drop into both nostrils daily as needed for congestion Unknown, Entered By History tamsulosin (FLOMAX) 0.4 MG capsule Take 0.8 mg by mouth every evening Reported, Patient thiamine (B-1) 100 MG tablet Take 100 mg by mouth every evening Reported, Patient Review of Systems: A Comprehensive greater than 10 system review of systems was carried out. Pertinent positives and negatives are noted above. Otherwise negative for contributory information. Physical Exam: Blood pressure 117/62, pulse 96, temperature 97.6 ??F (36.4 ??C), temperature source Oral, resp. rate 16, height 1.803 m (5' 11), weight 70.3 kg (155 lb), SpO2 95%. Wt Readings from Last 1 Encounters: 06/08/24 70.3 kg (155 lb) Exam: GENERAL: No apparent distress. Awake, alert, and fully oriented. HEENT: Normocephalic, atraumatic. Extraocular movements intact. CARDIOVASCULAR: Regular rate and rhythm without murmurs or rubs. No S3. PULMONARY: Clear to auscultation bilaterally. ABDOMINAL: Soft, non-tender, non-distended. Bowel sounds normoactive. EXTREMITIES: No cyanosis or clubbing. No appreciable edema. NEUROLOGICAL: CN 2-12 grossly intact, no focal neurological deficits. DERMATOLOGICAL: No rash, ulcer, bruising, nor jaundice. Data: Laboratory: Recent Labs Lab 06/08/242037 WBC 23.8* HGB 12.7* HCT 37.8* MCV 89 PLT 145* Recent Labs Lab 06/08/24203706/08/242000 NA 137 -- POTASSIUM 4.2 -- CHLORIDE 103 -- CO2 17* -- ANIONGAP 17* -- GLC 115* 109* BUN 39.3* -- CR 2.83* -- GFRESTIMATED 24* -- COREY 9.2 -- Recent Labs Lab 06/08/24 2225 LACT 1.0 Recent Labs Lab 06/09/24 0048 COLOR Yellow APPEARANCE Slightly Cloudy* URINEGLC Negative URINEBILI Negative URINEKETONE Negative SG 1.018 UBLD Moderate* URINEPH 5.5 PROTEIN 100* NITRITE Positive* LEUKEST Large* RBCU 14* WBCU >182* No results for input(s): CULT in the last 168 hours. Imaging: Recent Results (from the past 24 hour(s)) CT Abdomen Pelvis w/o Contrast Narrative EXAM: CT ABDOMEN PELVIS W/O CONTRAST LOCATION: [facility] DATE: 06/08/2024 INDICATION: V/d, renal failure, sepsis. COMPARISON: CT abdomen and pelvis on 12/09/2023. TECHNIQUE: CT scan of the abdomen and pelvis was performed without intravenous contrast Multiplanarreformats were obtained. Dose reduction techniques were used. [...] significantly changed as compared to 12/09/2023 exam. Impression IMPRESSION: 1. 3 mm stone in the mid left ureter with associated mild hydronephrosis. Multiple other small nonobstructing intrarenal stones. No left ureteral stone or hydronephrosis. 2. Hepatic steatosis. 3. Bilateral perinephric fat stranding, of indeterminate etiology, not significantly changed as compared to 12/09/2023 exam. 4. Prostatomegaly with diffuse urinary bladder wall thickening, nonspecific, can be seen with underdistention versus chronic bladder outlet obstruction versus chronic cystitis. XR Chest 2 Views Narrative EXAM: XR CHEST 2 VIEWS LOCATION: [facility] DATE: 06/08/2024 INDICATION: sepsis COMPARISON: 12/09/2023 Impression IMPRESSION: Heart size is normal. Lungs are clear bilaterally. Mediastinum and visualized bony structures are unremarkable. Harvey Novoa DO MPH [facility] Hospitalist [facility] [place] [address] 06/09/2024 documented in this encounter Consult Notes * Mayra Bermeo - 06/11/2024 4:30 PM CDTAssociated Order(s): SPIRITUAL HEALTH SERVICES IP CONSULT SPIRITUAL HEALTH SERVICES - Consult Note [place] Obs 2 Referral Source: [facility] Consult Nathan said that he has an infection and is trying to pass kidney stones. He said he has two daughters, one a trauma surgeon, one with a double masters and is an Judaism coremaker. He said that he doesn't have a arun community, not really anymore and said his daughters are hissource of support. I have to close my eyes now, he said. Plan: Chaplains remain available upon request. Mayra Bermeo [facility] Legal Operations Manager [facility] available 12/05 for emergent requests/referrals, either by paging the on-call coremaker or by entering an LUIS MANUEL/STAT consult in [facility] (this will also page the on-call coremaker). * Leyla Dowling RN - 06/09/2024 10:48 AM CDTAssociated Order(s): CARE MANAGEMENT / SOCIAL WORK IP CONSULT Care Management Initial Consult General Information Assessment completed with: Patient, Type of CM/SW Visit: Initial Assessment Primary Care Provider verified and updated as needed: Yes Readmission within the last 30 days: no previous admission in last 30 days Reason for Consult: discharge planning Communication Assessment Patient's communication style: spoken language (Czech or Bilingual) Hearing Difficulty or Deaf: yes Wear Glasses or Blind: yes Cognitive Cognitive/Neuro/Behavioral: WDL Level of Consciousness: alert Arousal Level: arouses to voice Orientation: oriented x 4 Mood/Behavior: calm, cooperative Best Language: 0 - No aphasia Speech: clear Living Environment: People in home: spouse, child(debbie), adult Current living Arrangements: house Able to return to prior arrangements: yes Family/Social Support: Care provided by: self Provides care for: no one Marital Status: , Children Description of Support System: Supportive, Involved Current Resources: Patient receiving home care services: No Community Resources: None Equipment currently used at home: none Supplies currently used at home: None Lifestyle & Psychosocial Needs: Social Determinants of Health Food Insecurity: Low Risk (06/09/2024) Food Insecurity Within the past 12 months, did you worry that your food would run out before you got money to buy more?: No Within the past 12 months, did the food you bought just not last and you didn???t have money to getmore?: No Depression: Not at risk (08/07/2022) PHQ-2 PHQ-2 Score: 1 Housing Stability: Low Risk (06/09/2024) Housing Stability Do you have housing? : Yes Are you worried about losing your housing?: No Tobacco Use: Medium Risk (06/09/2024) Patient History Smoking Tobacco Use: Former Smokeless Tobacco Use: Never Passive Exposure: Past Financial Resource Strain: Low Risk (06/09/2024) Financial Resource Strain Within the past 12 months, have you or your family members you live with been unable to get utilities (heat, electricity) when it was really needed?: No Alcohol Use: Not on file Transportation Needs: Low Risk (06/09/2024) Transportation Needs Within the past 12 months, [...] IADLs:: Cleaning, Cooking, Laundry, Shopping, Meal Preparation, Transportation Assesssment of Functional Status: At functional baseline Values/Beliefs: Spiritual, Cultural Beliefs, Quaker Practices, Values that affect care: Description of Beliefs that Will Affect Care: buddhist Care Management Discharge Note Discharge Date: 06/11/2024 Discharge Disposition: Home Discharge Services: None Discharge DME: None Discharge Transportation: family or friend will provide Education Provided on the Discharge Plan: Yes Persons Notified of Discharge Plans: Pt Patient/Family in Agreement with the Plan: yes Handoff Referral Completed: Yes Additional Information: CM consulted due to unplanned readmission risk score of 34%. Met with pt at bedside to assess for needs. Pt lives in a home with his and adult daughter and is independent at baseline. and dtr assist with cooking, cleaning, shopping and transportation. He denies having any discharge needs at this time. Please call if needs arise. Leyla Dowling RN BSN Inpatient Care Coordination [facility] * Kory Mcclure MD - 06/09/2024 6:17 AM CDTAssociated Order(s): UROLOGY IP CONSULT Images from the original note were not included. [facility] Consultation by [facility] Urology @NAME@ Age: [age] year old Date of : 1955 Date of Admission: 06/08/2024 Reason for consult: Right ureteral stone, urinary tract infection Requesting PA/MD: Dr. Cody, emergency department Level of consult: Consult, follow and place orders Assessment and Plan: Assessment: Right ureteral stone with urinary tract infection and urosepsis Plan: I recommend that we proceed to the operating room for a cystoscopy with right ureteral stent placement along with temporary Rea catheter placement. I discussed the procedure with the patient's wifewith the patient present. All of her questions were answered and she wishes to proceed. Consent wasobtained from the . The patient will be admitted to the hospital as we await urine culture results. [facility] [phone] Chief Complaint: History is obtained from the patient and EMR. History of Present Illness: This patient is a 68 year old male admitted with diarrhea. He has a history of a stroke and his had noticed for the last few days he had poor p.o. intake and low energy levels. He was brought into the emergency department and found to have a likely urinary tract infection on urinalysis and a significantly elevated WBC at 23.8. He had a CT scan performed that showed a 5 mm stone in the mid rig ht ureter causing hydronephrosis and obstruction on that side. (Please note that the radiologist reported the correct site for the stone in the main body of the report but that he reported the incorrect side on the final findings). The patient was given antibiotics in the emergency department and is in the process of being admitted to the hospital. The stone was actually diagnosed in November 2023 when the stone was found to be in the proximal ureter during a different hospital admission. He was not symptomatic at that time. He was instructed to follow-up with urology but it appears that his follow-up scheduled for January 01 ended up being canceled. On exam the patient is somnolent. He is not able to give history. All history is taken from his . I personally viewed his CT scan images. 5 mm stone in the right ureter. In November the stone is inthe proximal ureter now it has progressed slightly into the right mid ureter. A few tiny nonobstructing stones in the right kidney. Urinalysis shows a preponderance of pyuria. Serum WBC 23.8, serum creatinine 2.83. Past Medical History: Past Medical History: Diagnosis Date ALCOHOL ABUSE, IN REMISSION AA weekly Arthritis Chronic kidney disease Eczema ED (erectile dysfunction) HTN (hypertension), benign 2004 Hyperlipidemia 2005 Prediabetes 2008 Past Surgical History: Past Surgical History: Procedure Laterality Date HC REMOVE TONSILS/ADENOIDS,<12 Y/O ZZHC ARTHROTOMY W/OPEN MENISCUS REPAIR 2008 right -TRIA Social History: Social History Tobacco Use Smoking status: Former Current packs/day: 0.50 Average packs/day: 0.5 packs/day for 54.6 years (27.3 ttl pk-yrs) Types: Cigarettes, Other Start date: 10/20/1969 Passive exposure: Past Smokeless tobacco: Never Tobacco comments: Recently stopped 12/09/23 Substance Use Topics Alcohol use: No Alcohol/week: 0.0 standard drinks of alcohol Comment: 100ml or more daily; recent relapse 08/18/15 Family History: Family History Problem Relation Age of Onset [...] hx of Dementia No family hx of Anita Disease No family hx of Parkinsonism No family hx of Autism Spectrum Disorder No family hx of Intellectual Disability No family hx of Mental Illness No family hx of Family history reviewed. Allergies: Allergies Allergen Reactions Donepezil Diarrhea Hospitalized for diarrhea/dehydration Sulfa Antibiotics Rash Medications: Current Facility-Administered Medications Medication Dose Route Frequency Provider Last Rate Last Admin [Auto Hold] acetaminophen (TYLENOL) tablet 650 mg 650 mg Oral Q4H PRN Harvey Novoa DO 650 mgat 06/09/24 0226 Or [Auto Hold] acetaminophen (TYLENOL) Suppository 650 mg 650 mg Rectal Q4H PRN Harvey Novoa DO acetaminophen (TYLENOL) tablet 975 mg 975 mg Oral Once Kory Mcclure MD Or acetaminophen (TYLENOL) Suppository 650 mg 650 mg Rectal Once Kory Mcclure MD [Auto Hold] benzocaine-menthol (CHLORASEPTIC) 6-10 MG lozenge 1 lozenge 1 lozenge Buccal Q1H PRN Harvey Novoa DO [Auto Hold] calcium carbonate (TUMS) chewable tablet 500 mg 500 mg Oral BID PRN Harvey Novoa DO ceFAZolin Sodium (ANCEF) injection 2 g 2 g Intravenous Pre-Op/Pre-procedure x 1 dose Kory Mcclure MD ceFAZolin Sodium (ANCEF) injection 2 g 2 g Intravenous See Admin Instructions Kory Mcclure MD [Auto Hold] cefTRIAXone (ROCEPHIN) 1 g vial to attach to NS 100 mL bag for ADULTS or NS 50 mL bag for PEDS 1 g Intravenous Q24H Harvey Novoa DO [Auto Hold] HYDROmorphone (DILAUDID) injection 0.2 mg 0.2 mg Intravenous Q2H PRN Harvey Novoa DO [Auto Hold] HYDROmorphone (DILAUDID) injection 0.4 mg 0.4 mg Intravenous Q2H PRN Harvey Novoa DO lactated ringers infusion Intravenous Continuous Harvey Novoa DO 150 mL/hr at 06/09/24 0402 New Bag at 06/09/24 0402 [Auto Hold] lidocaine (LMX4) cream Topical Q1H PRN Harvey Novoa DO [Auto Hold] lidocaine 1 % 0.1-1 mL 0.1-1 mL Other Q1H PRN Harvey Novoa DO [Auto Hold] melatonin tablet 3 mg 3 mg Oral At Bedtime PRN Harvey Novoa DO [Auto Hold] menthol-zinc oxide (CALMOSEPTINE) 0.44-20.6 % ointment OINT Topical 4x Daily PRN Harvey Novoa DO [Auto Hold] miconazole (MICATIN) 2 % powder Topical BID PRN Harvey Novoa DO [Auto Hold] ondansetron (ZOFRAN ODT) ODT tab 4 mg 4 mg Oral Q6H PRN Harvey Novoa DO Or [Auto Hold] ondansetron (ZOFRAN) injection 4 mg 4 mg Intravenous Q6H PRN Harvey Novoa DO [Auto Hold] oxyCODONE (ROXICODONE) tablet 5 mg 5 mg Oral Q4H PRN Harvey Novoa DO [Auto Hold] oxyCODONE IR (ROXICODONE) half-tab 2.5 mg 2.5 mg Oral Q4H PRN Harvey Novoa DO [Auto Hold] polyethylene glycol (MIRALAX) Packet 17 g 17 g Oral BID PRN Harvey Novoa DO [Auto Hold] senna-docusate (SENOKOT-S/PERICOLACE) 8.6-50 MG per tablet 1 tablet 1 tablet Oral BID PRN Harvey Novoa DO Or [Auto Hold] senna-docusate (SENOKOT-S/PERICOLACE) 8.6-50 MG per tablet 2 tablet 2 tablet Oral BID PRN Harvey Novoa DO [Auto Hold] sodium chloride (PF) 0.9% PF flush 3 mL 3 mL Intracatheter Q8H Harvey Novoa DO 3mL at 06/09/24 0328 [Auto Hold] sodium chloride (PF) 0.9% PF flush 3 mL 3 mL Intracatheter q1 min prn Harvey Novoa DO Review of Systems: A comprehensive 10-point review of systems was performed and found to be negative except as described in the HPI. BP 125/63 Pulse 79 Temp 98.9 ??F (37.2 ??C) (Temporal) Resp 20 Ht 1.803 m (5' 11) Wt 70.3 kg (155 lb) SpO2 98% BMI 21.62 kg/m?? PSYCH: NAD EYES: EOMI MOUTH: MMM NEURO: AAO x3 Data: Lab Results Component Value Date WBC 23.8 (H) 06/08/2024 HGB 12.7 (L) 06/08/2024 HCT 37.8 (L) 06/08/2024 MCV 89 06/08/2024 PLT 145 (L) 06/08/2024 Lab Results Component Value Date CR 2.83 (H) 06/08/2024 documented in this encounter ED Notes * Dee Dee Gonzales RN - 06/09/2024 2:56 AM CDT During downtime, bond writer went into pt room at approximately 0210 to give pt scheduled Ceftriaxone. Pt confirmed only allergy is to sulfa drugs. At approx 0220, pt noted to be shivering and shaking underneath 3 blankets. Pt temp at 102.1. Pt also tachypneic at resp rate of 26 breaths per minute, however maintained O2 sat of >95% and tachy at 110-125 bpm. informed and ordered to give PRN Tylenol as per orders displayed on Epic. Art Appraiser agreeable and Tylenol given to pt at 0226. Art Appraiser initiated 1L NS bolus at 0230. Pt also noted to be incontinent and changed diaper with the assistance of techs and pt repositioned in the bed. At 0240, MD Dr. Cody came to see pt, spoke with him about diag nosis and no further orders. At 0250 pt no longer shaking and VS improving. Pt BP is now 129/81 andHR approx 110. Temp now 100.8. Art Appraiser did also paper document meds and fluids on paper downtime form. Pt remained alert and oriented x 4 throughout. Art Appraiser to handover pt to boarder nurse in [place]. * Teofilo Cody MD - 06/08/2024 9:34 PM CDT Emergency Department Note History of Present Illness Chief Complaint Diarrhea HPI Jed Alamo is a 68 year old male with a history of CKD, hypertension, and hyperlipidemia whopresents with his for a complaint of diarrhea. The patient's reports that he has been in bed since Friday. About 24 hours after this, he started to have diarrhea, which she describes as liquid. He has been having 2-3 episodes of diarrhea per day since. He is often incontinent. Yesterday, he lost consciousness in a hot shower. He also had one episode of vomiting last night. He endorsesincreased dizziness and weakness, although his notes this is not acute. At baseline, he eats around 1 meal a day, and he has been unable to do that recently. He denies any blood in his stool, changes in his urine, headaches, fevers, chest pain, abdominal pain, back pain, recent infectious exposure, recent antibiotics, or recent travel. His reports that the patient has had periods where he has increased fatigue and diarrhea in the past, with this being the third one this year. Independent Historian as detailed above Review of External Notes I reviewed discharge summary from 03/04/2024 when patient was admitted for near syncope thought to be secondary to orthostatic hypotension and metabolic encephalopathy. Past Medical History Medical History and Problem List Alcohol abuse Arthritis CKD Eczema ED Hypertension Hyperlipidemia Prediabetes Dysphagia Thrombotic stroke TIA Hypercholesterolemia Medications Aspirin 81 mg Atorvastatin Disulfiram Donepezil Escitalopram Tamsulosin Lisinopril Metropolol Trazodone Mirtazpine Surgical History Tonsillectomy and adenoidectomy Arthrotomy Physical Exam Patient Vitals for the past 24 hrs: BP Temp Temp src Pulse Resp SpO2 Height Weight 06/09/24 0245 129/81 -- -- 113 -- 97 % -- -- 06/09/24 0230 (!) 144/90 (!) 102.4 ??F (39.1 ??C) Oral 115 -- 96 % -- -- 06/08/242299 117/62 -- -- 96 -- -- -- -- 06/08/242244 123/63 -- -- 96 -- -- -- -- 06/08/242229 (!) 110/91 -- -- 98 -- -- -- -- 06/08/242214 110/57 -- -- 101 -- -- -- -- 06/08/242199 112/64 -- -- 96 16 -- -- -- 06/08/242144 107/82 -- -- 103 -- -- -- -- 06/08/242129 113/64 -- -- 105 -- -- -- -- 06/08/242114 115/72 -- -- 108 -- -- -- -- 06/08/242099 112/67 -- -- 107 -- -- -- -- 06/08/242044 120/65 -- -- 117 -- -- -- -- 06/08/242029 -- -- -- (!) 122 -- 95 % -- -- 06/08/242014 114/80 -- -- (!) 123 -- 94 % -- -- 06/08/241951 119/73 97.6 ??F (36.4 ??C) Oral (!) 141 18 95 % 1.803 m (5' 11) 70.3 kg (155 lb) Physical Exam Vitals and nursing note reviewed. Constitutional: General: He is not in acute distress. Appearance: He is ill-appearing. He is not toxic-appearing. HENT: Head: Normocephalic and atraumatic. Right Ear: External ear normal. Left Ear: External ear normal. Nose: Nose normal. Mouth/Throat: Mouth: Mucous membranes are dry. Eyes: Conjunctiva/sclera: Conjunctivae normal. Cardiovascular: Rate and Rhythm: Regular rhythm. Tachycardia present. Heart sounds: No murmur heard. Pulmonary: Effort: Pulmonary effort is normal. No respiratory distress. Breath sounds: No wheezing, rhonchi or rales. Abdominal: General: Abdomen is flat. There is no distension. Palpations: Abdomen is soft. Tenderness: There is no abdominal tenderness. There is no guarding or rebound. Musculoskeletal: General: No swelling or deformity. Cervical back: Normal range of motion and neck supple. Skin: General: Skin is warm and dry. Findings: No rash. Neurological: Mental Status: He is alert and oriented to person, place, and time. Psychiatric: Behavior: Behavior normal. Diagnostics Lab Results Labs Ordered and Resulted from Time of ED Arrival to Time of ED Departure GLUCOSE BY METER - Abnormal Result Value GLUCOSE BY METER POCT 109 (*) COMPREHENSIVE METABOLIC PANEL - Abnormal Sodium 137 Potassium 4.2 Carbon Dioxide (CO2) 17 (*) Anion Gap 17 (*) Urea Nitrogen 39.3 (*) Creatinine 2.83 (*) GFR Estimate 24 (*) Calcium 9.2 Chloride 103 Glucose 115 (*) Alkaline Phosphatase 140 AST 18 ALT 39 Protein Total 6.7 Albumin 3.6 Bilirubin Total 0.6 CBC WITH PLATELETS AND DIFFERENTIAL - Abnormal WBC Count 23.8 (*) RBC Count 4.23 (*) Hemoglobin 12.7 (*) Hematocrit 37.8 (*) MCV 89 MCH 30.0 MCHC 33.6 RDW 13.3 Platelet Count 145 (*) % Neutrophils 89 % Lymphocytes 3 % Monocytes 5 % Eosinophils 1 % Basophils 0 % Immature Granulocytes 2 NRBCs per 100 WBC 0 Absolute Neutrophils 21.3 (*) Absolute Lymphocytes 0.8 Absolute Monocytes 1.2 Absolute Eosinophils 0.2 Absolute Basophils 0.1 Absolute Immature Granulocytes 0.4 Absolute NRBCs 0.0 MAGNESIUM - Abnormal Magnesium 1.5 (*) ROUTINE UA WITH MICROSCOPIC REFLEX TO CULTURE - Abnormal Color Urine Yellow Appearance Urine Slightly Cloudy (*) Glucose Urine Negative Bilirubin Urine Negative Ketones Urine Negative Specific [place] Urine 1.018 Blood Urine Moderate (*) pH Urine 5.5 Protein Albumin Urine 100 (*) Urobilinogen Urine Normal Nitrite Urine Positive (*) Leukocyte Esterase Urine Large (*) Bacteria Urine Moderate (*) WBC Clumps Urine Present (*) Mucus Urine Present (*) RBC Urine 14 (*) WBC Urine >182 (*) Squamous Epithelials Urine <1 PROCALCITONIN - Abnormal Procalcitonin 18.09 (*) ISTAT GASES LACTATE VENOUS POCT - Abnormal Lactic Acid POCT 1.0 Bicarbonate Venous POCT 20 (*) O2 Sat, Venous POCT 80 (*) pCO2 Venous POCT 31 (*) pH Venous POCT 7.41 pO2 Venous POCT 43 CK TOTAL - Normal CK 194 C. DIFFICILE TOXIN B PCR WITH REFLEX TO C. DIFFICILE ANTIGEN AND TOXINS A/B EIA ENTERIC BACTERIA AND VIRUS PANEL BY PCR BLOOD CULTURE URINE CULTURE Imaging XR Chest 2 Views Final Result IMPRESSION: Heart size is normal. Lungs are clear bilaterally. Mediastinum and visualized bony structures are unremarkable. CT Abdomen Pelvis w/o Contrast Final Result IMPRESSION: 1. 3 mm stone in the mid left ureter with associated mild hydronephrosis. Multiple other small nonobstructing intrarenal stones. No left ureteral stone or hydronephrosis. 2. Hepatic steatosis. 3. Bilateral perinephric fat stranding, of indeterminate etiology, not significantly changed as compared to 12/09/2023 exam. 4. Prostatomegaly with diffuse urinary bladder wall thickening, nonspecific, can be seen with underdistention versus chronic bladder outlet obstruction versus chronic cystitis. EKG ECG results from 06/08/24 EKG 12 lead Value Systolic Blood Pressure Diastolic Blood Pressure Ventricular Rate 121 Atrial Rate 121 AZ Interval 140 QRS Duration 88 QT 310 QTc 440 P Isaban 56 R AXIS 62 T Isaban 60 Interpretation ECG Sinus tachycardia Read by Dr Cody, [id number] Independent Interpretation None ED Course Medications Administered Medications sodium chloride 0.9% BOLUS 1,000 mL (1,000 mLs Intravenous $New Bag 06/09/24 6560) magnesium sulfate 2 g in 50 mL sterile water intermittent infusion (has no administration in time range) lidocaine 1 % 0.1-1 mL (has no administration in time range) lidocaine (LMX4) cream (has no administration in time range) sodium chloride (PF) 0.9% PF flush 3 mL (has no administration in time range) sodium chloride (PF) 0.9% PF flush 3 mL (has no administration in time range) acetaminophen (TYLENOL) tablet 650 mg (650 mg Oral $Given 06/09/24225) Or acetaminophen (TYLENOL) Suppository 650 mg ( Rectal See Alternative 06/09/24225) oxyCODONE IR (ROXICODONE) half-tab 2.5 mg (has no administration in time range) oxyCODONE (ROXICODONE) tablet 5 mg (has no administration in time range) HYDROmorphone (DILAUDID) injection 0.2 mg (has no administration in time range) HYDROmorphone (DILAUDID) injection 0.4 mg (has no administration in time range) melatonin tablet 3 mg (has no administration in time range) senna-docusate (SENOKOT-S/PERICOLACE) 8.6-50 MG per tablet 1 tablet (has no administration in time range) Or senna-docusate (SENOKOT-S/PERICOLACE) 8.6-50 MG per tablet 2 tablet (has no administration in time range) polyethylene glycol (MIRALAX) Packet 17 g (has no administration in time range) ondansetron (ZOFRAN ODT) ODT tab 4 mg (has no administration in time range) Or ondansetron (ZOFRAN) injection 4 mg (has no administration in time range) calcium carbonate (TUMS) chewable tablet 500 mg (has no administration in time range) benzocaine-menthol (CHLORASEPTIC) 6-10 MG lozenge 1 lozenge (has no administration in time range) miconazole (MICATIN) 2 % powder (has no administration in time range) menthol-zinc oxide (CALMOSEPTINE) 0.44-20.6 % ointment OINT (has no administration in time range) cefTRIAXone (ROCEPHIN) 1 g vial to attach to NS 100 mL bag for ADULTS or NS 50 mL bag for PEDS (hasno administration in time range) lactated ringers infusion (has no administration in time range) sodium chloride 0.9% BOLUS 1,000 mL (0 mLs Intravenous Stopped 06/08/242221) sodium chloride 0.9% BOLUS 1,000 mL (0 mLs Intravenous Stopped 06/09/24 0052) cefTRIAXone (ROCEPHIN) 1 g vial to attach to NS 100 mL bag for ADULTS or NS 50 mL bag for PEDS (0 gIntravenous Stopped 06/09/24 0253) Procedures None Discussion of Management Admitting Hospitalist, Harvey Novoa DO Urology, Dr. Mccluer ED Course ED Course as of 06/09/245 FriJun 08, [id number] I initially assessed the patient and obtained the history and physical exam. FriJun 09, [id number] I discussed with Dr. Mcclure with urology. 123 I discussed with Harvey Novoa DO with the hospitalist team. Additional Documentation None Medical Decision Making / Diagnosis [facility] Diagnoses: None MIPS None MDM Jed Alamo is a 68 year old male who presents with general weakness with diarrhea and vomiting. Patient appears ill on arrival with tachycardia but he is normotensive and in no distress. Suspicious for a GI illness such as gastroenteritis or possibly C. difficile, though no known risk factors and he is only had 2-3 episodes of diarrhea daily. Initial lab work was significant for severe leukocytosis as well as an acute kidney injury. His lactic acid was normal. He was aggressively hydrated with crystalloid. While he did have signs of sepsis, he was normotensive and had normal lactic acid so no signs of severe sepsis or septic shock at this time. He was given greater than 30 mL/kg of IV fluids. Given the renal dysfunction and unclear source of possible sepsis, a CT of the abdomen wasperformed and showed a left ureteral stone. We were then able to obtain a urinalysis which showed signs of a UTI. I suspect that he has urosepsis and an infected kidney stone. He was given a dose of ceftriaxone. I discussed with Dr. Mcclure with urology and he will plan for stent in the morning. I discussed with Harvey Novoa DO who accepted admission. Patient did spike a fever while he was in the ED and had return of tachycardia but remained normotensive throughout his time in the ED. Disposition The patient was admitted to the hospital. Diagnosis ICD-10-CM 1. Sepsis due to urinary tract infection (H) A41.9 N39.0 2. Left ureteral stone N20.1 3. SILVANO (acute kidney injury) (H24) N17.9 4. Hypomagnesemia E83.42 Scribe Disclosure: I, Naye Cook, am serving as a scribe at 9:34 PM on 06/08/2024 to document services personally performed by Teofilo Cody MD based on my observations and the provider's statements to me. Teofilo Cody MD 06/09/24 0300 documented in this encounter Miscellaneous Notes * Plan of Care - Tex Blunt, PT - 06/12/2024 3:29 PM CDT Physical Therapy Discharge Summary Reason for therapy discharge: Discharged to home with home therapy. Progress towards therapy goal(s). See goals on Care Plan in Epic electronic health record for goal details. Goals not met. Barriers to achieving goals: discharge from facility. Therapy recommendation(s): Continued therapy is recommended. Rationale/Recommendations: Per prior PT recommendation, Patient is below baseline functional mobility. Pt lives with and daughter, is IND with mobility at baseline. Currently pt needing A x 1 with FWW, very limited tolerance for mobility, only able to ambulate 50 feet this date. Rec TCU to progress strength and IND mobiltiy. If pt were to decline TCU, needing A x 1 and FWW for limited mobility. * Plan of Care - Chetna Valdez RN - 06/12/2024 2:42 PM CDT Problem: Adult Inpatient Plan of Care Goal: Plan of Care Review Description: The Plan of Care Review/Shift note should be completed every shift. The Outcome Evaluation is a brief statement about your assessment that the patient is improving, declining, or no change. This information will be displayed automatically on your shift note. 06/12/2024 1440 by Chetna Valdez RN Outcome: Progressing Flowsheets (Taken 06/12/2024 1440) Outcome Evaluation: vss afebrile. denies pain. urine blood tinged in brief, Jinny WU aware. incont of urine/bowel. pt up to br and chair, ambulated in hallways with walker, gait belt and assist of 1. Plan of Care Reviewed With: patient Overall Patient Progress: no change 06/12/2024 0945 by Chetna Valdez RN Outcome: Progressing Flowsheets (Taken 06/12/2024829) Outcome Evaluation: vss afebrile. denies pain. iv abx, iv sl. regular diet. Plan of Care Reviewed With: patient Overall [...] wake me up as it startles me. 06/12/2024 1440 by Chetna Valdez RN Outcome: Progressing 06/12/2024944 by Chetna Valdez RN Outcome: Progressing Goal: Absence of Hospital-Acquired Illness or Injury 06/12/2024 1440 by Chetna Valdez RN Outcome: Progressing 06/12/2024944 by Chetna Valdez RN Outcome: Progressing Intervention: Identify and Manage Fall Risk Recent Flowsheet Documentation Taken 06/12/2024829 by Chetna Valdez RN Safety Promotion/Fall Prevention: clutter free environment maintained increased rounding and observation mobility aid in reach nonskid shoes/slippers when out of bed room door open room near nurse's station room organization consistent safety round/check completed supervised activity Intervention: Prevent Skin Injury Recent Flowsheet Documentation Taken 06/12/2024829 by Chetna Valdez RN Body Position: position changed independently Intervention: Prevent and Manage VTE (Venous Thromboembolism) Risk Recent Flowsheet Documentation Taken 06/12/2024829 by Chetna Valdez RN VTE Prevention/Management: SCDs off (sequential compression devices) Intervention: Prevent Infection Recent Flowsheet Documentation Taken 06/12/2024829 by Chetna Valdez RN Infection Prevention: equipment surfaces disinfected hand hygiene promoted rest/sleep promoted single patient room provided Goal: Optimal Comfort and Wellbeing 06/12/2024 1440 by Chetna Valdez RN Outcome: Progressing 06/12/2024 0945 by Chetna Valdez RN Outcome: Progressing Goal: Readiness for Transition of Care 06/12/2024 1440 by Chetna Valdez RN Outcome: Progressing 06/12/2024 0945 by Chetna Valdez RN Outcome: Progressing Problem: Pain Acute Goal: Optimal Pain Control and Function 06/12/2024 1440 by Chetna Valdez RN Outcome: Progressing 06/12/2024 09 by Chetna Valdez RN Outcome: Progressing Intervention: Prevent or Manage Pain Recent Flowsheet Documentation Taken 06/12/2024 0830 by Chetna Valdez RN Medication Review/Management: medications reviewed Intervention: Optimize Psychosocial Wellbeing Recent Flowsheet Documentation Taken 06/12/2024 0830 by Chetna Valdez RN Supportive Measures: active listening utilized goal-setting facilitated Problem: Fall Injury Risk Goal: Absence of Fall and Fall-Related Injury 06/12/2024 1440 by Chetna Valdez RN Outcome: Progressing 06/12/2024 09 by Chetna Valdez RN Outcome: Progressing Intervention: Identify and Manage Contributors Recent Flowsheet Documentation Taken 06/12/2024 08 by Chetna Valdez RN Medication Review/Management: medications reviewed Intervention: Promote Injury-Free Environment Recent Flowsheet Documentation Taken 06/12/2024 08 by Chetna Valdez RN Safety Promotion/Fall Prevention: clutter free environment maintained increased rounding and observation mobility aid in reach nonskid shoes/slippers when out of bed room door open room near nurse's station room organization consistent safety round/check completed supervised activity Problem: Infection Goal: Absence of Infection Signs and Symptoms 06/12/2024 1440 by Chetna Valdez RN Outcome: Progressing 06/12/2024 0945 by Chetna Valdez RN Outcome: Progressing Goal Outcome Evaluation: Plan of Care Reviewed With: patient Overall Patient Progress: no changeOverall Patient Progress: no change Outcome Evaluation: vss afebrile. denies pain. urine blood tinged in brief, Jinny WU aware. incont of urine/bowel. pt up to br and chair, ambulated in hallways with walker, gait belt and assist of 1. * Plan of Care - Chetna Valdez RN - 06/12/2024 9:46 AM CDT Problem: Adult Inpatient Plan of Care Goal: Plan of Care Review Description: The Plan of Care Review/Shift note should be completed every shift. The Outcome Evaluation is a brief statement about your assessment that the patient is improving, declining, or no change. This information will be displayed automatically on your shift note. Outcome: Progressing Flowsheets (Taken 06/12/2024829) Outcome Evaluation: vss afebrile. denies pain. iv abx, iv sl. regular diet. Plan of Care Reviewed With: patient Overall [...] Manage Fall Risk Recent Flowsheet Documentation Taken 06/12/2024829 by Chetna Valdez RN Safety Promotion/Fall Prevention: clutter free environment maintained increased rounding and observation mobility aid in reach nonskid shoes/slippers when out of bed room door open room near nurse's station room organization consistent safety round/check completed supervised activity Intervention: Prevent Skin Injury Recent Flowsheet Documentation Taken 06/12/2024829 by Chetna Valdez RN Body Position: position changed independently Intervention: Prevent and Manage VTE (Venous Thromboembolism) Risk Recent Flowsheet Documentation Taken 06/12/2024829 by Chetna Valdez RN VTE Prevention/Management: SCDs off (sequential compression devices) Intervention: Prevent Infection Recent Flowsheet Documentation Taken 06/12/2024829 by Chetna Valdez RN Infection Prevention: equipment surfaces disinfected hand hygiene promoted rest/sleep promoted single patient room provided Goal: Optimal Comfort and Wellbeing Outcome: Progressing Goal: Readiness for Transition of Care Outcome: Progressing Problem: Pain Acute Goal: Optimal Pain Control and Function Outcome: Progressing Intervention: Prevent or Manage Pain Recent Flowsheet Documentation Taken 06/12/2024829 by Chetna Valdez RN Medication Review/Management: medications reviewed Intervention: Optimize Psychosocial Wellbeing Recent Flowsheet Documentation Taken 06/12/2024829 by Chetna Valdez RN Supportive Measures: active listening utilized goal-setting facilitated Problem: Fall Injury Risk Goal: Absence of Fall and Fall-Related Injury Outcome: Progressing Intervention: Identify and Manage Contributors Recent Flowsheet Documentation Taken 06/12/2024829 by Chetna Valdez RN Medication Review/Management: medications reviewed Intervention: Promote Injury-Free Environment Recent Flowsheet Documentation Taken 06/12/2024829 by Chetna Valdez RN Safety Promotion/Fall Prevention: clutter free environment maintained increased rounding and observation mobility aid in reach nonskid shoes/slippers when out of bed room door open room near nurse's station room organization consistent safety round/check completed supervised activity Problem: Infection Goal: Absence of Infection Signs and Symptoms Outcome: Progressing Goal Outcome Evaluation: Plan of Care Reviewed With: patient Overall Patient Progress: no changeOverall Patient Progress: no change Outcome Evaluation: vss afebrile. denies pain. iv abx, iv sl. regular diet. * Plan of Care - Wilber Mckeon RN - 06/12/2024 6:14 AM CDT Pt is Aox4 and calm. Pt is Ax1 with walker and GB but has not gotten OOB during shift. Pt has IV Rocephin running and pt is tolerating it well. Pt had episode of incontinence and has been sleeping through the night. Pt denies pain. No fevers seen during the night. PT following. Continue to follow plan of care. Goal Outcome Evaluation: Plan of Care Reviewed With: patient Overall Patient Progress: no changeOverall Patient Progress: no change Outcome Evaluation: pt is AOx4 and calm. fevers have improved but pt still incontinent Problem: Adult Inpatient Plan of Care Goal: Plan of Care Review Description: The Plan of Care Review/Shift note should be completed every shift. The Outcome Evaluation is a brief statement about your assessment that the patient is improving, declining, or no change. This information will be displayed automatically on your shift note. Outcome: Progressing Flowsheets (Taken 06/12/2024 0614) Outcome Evaluation: pt is AOx4 and calm. fevers have improved but pt still incontinent Plan of Care Reviewed With: patient Overall [...] Manage Fall Risk Recent Flowsheet Documentation Taken 06/11/20242342 by Wilber Mckeon RN Safety Promotion/Fall Prevention: assistive device/personal items within reach clutter free environment maintained nonskid shoes/slippers when out of bed safety round/check completed Taken 06/11/2024 234 by Wilber Mckeon RN Safety Promotion/Fall Prevention: assistive device/personal items within reach clutter free environment maintained nonskid shoes/slippers when out of bed safety round/check completed Intervention: Prevent Skin Injury Recent Flowsheet Documentation Taken 06/11/2024 234 by Wilber Mckeon RN Body Position: position changed independently Taken 06/11/20242341 by Wilber Mckeon RN Body Position: position changed independently Goal: Optimal Comfort and Wellbeing Outcome: Progressing Goal: Readiness for Transition of Care Outcome: Progressing Problem: Pain Acute Goal: Optimal Pain Control and Function Outcome: Progressing Intervention: Prevent or Manage Pain Recent Flowsheet Documentation Taken 06/11/2024 234 by Wilber Mckeon RN Medication Review/Management: medications reviewed Taken 06/11/20242341 by Wilber Mckeon RN Medication Review/Management: medications reviewed Problem: Fall Injury Risk Goal: Absence of Fall and Fall-Related Injury Outcome: Progressing Intervention: Identify and Manage Contributors Recent Flowsheet Documentation Taken 06/11/20242342 by Wilber Mckeon RN Medication Review/Management: medications reviewed Taken 06/11/20242341 by Wilber Mckeon RN Medication Review/Management: medications reviewed Intervention: Promote Injury-Free Environment Recent Flowsheet Documentation Taken 06/11/20242342 by Wilber Mckeon RN Safety Promotion/Fall Prevention: assistive device/personal items within reach clutter free environment maintained nonskid shoes/slippers when out of bed safety round/check completed Taken 06/11/20242341 by Wilber Mckeon RN Safety Promotion/Fall Prevention: assistive device/personal items within reach clutter free environment maintained nonskid shoes/slippers when out of bed safety round/check completed Problem: Infection Goal: Absence of Infection Signs and Symptoms Outcome: Progressing * Plan of Care - Micaela Baptiste RN - 06/11/2024 11:43 PM CDT [id number] Inpatient Progress Note: A & O X 4. VSS. No S/SX of respiratory distress. Denies pain, chills, shortness of breath, dizziness, nausea, vomit, or diarrhea.Admitting DX: Urosepsis with nephrolithiasis status post cystoscopy, Bacteremia Klebsiella, UTI. Afebrile. BP (!) 142/73 (BP Location: Left arm) Pulse 82 Temp 98.7 ??F (37.1 ??C) (Oral) Resp 18 Ht 1.803 m (5' 11) Wt 73 kg (160 lb 15 oz) SpO2 95% BMI 22.45 kg/m?? Problem: Adult Inpatient Plan of Care Goal: Plan of Care Review Description: The Plan of Care Review/Shift note should be completed every shift. The Outcome Evaluation is a brief statement about your assessment that the patient is improving, declining, or no change. This information will be displayed automatically on your shift note. Outcome: Progressing Flowsheets (Taken 06/11/2024 2343) Plan of Care Reviewed With: patient Goal: [...] Manage Fall Risk Recent Flowsheet Documentation Taken 06/11/20242247 by Micaela Baptiste RN Safety Promotion/Fall Prevention: activity supervised clutter free environment maintained nonskid shoes/slippers when out of bed room organization consistent safety round/check completed mobility aid in reach Intervention: Prevent Skin Injury Recent Flowsheet Documentation Taken 06/11/20242247 by Micaela Baptiste RN Body Position: position maintained prone Intervention: Prevent and Manage VTE (Venous Thromboembolism) Risk Recent Flowsheet Documentation Taken 06/11/20242247 by Micaela Baptiste RN VTE Prevention/Management: SCDs off (sequential compression devices) Intervention: Prevent Infection Recent Flowsheet Documentation Taken 06/11/20242247 by Micaela Baptiste RN Infection Prevention: hand hygiene promoted equipment surfaces disinfected rest/sleep promoted single patient room provided Goal: Optimal Comfort and Wellbeing Outcome: Progressing Goal: Readiness for Transition of Care Outcome: Progressing Problem: Pain Acute Goal: Optimal Pain Control and Function Outcome: Progressing Intervention: Prevent or Manage Pain Recent Flowsheet Documentation Taken 06/11/20242247 by Micaela Baptiste RN Medication Review/Management: medications reviewed Problem: Fall Injury Risk Goal: Absence of Fall and Fall-Related Injury Outcome: Progressing Intervention: Identify and Manage Contributors Recent Flowsheet Documentation Taken 06/11/20242247 by Micaela Baptiste RN Medication Review/Management: medications reviewed Intervention: Promote Injury-Free Environment Recent Flowsheet Documentation Taken 06/11/20242247 by Micaela Bpatiste RN Safety Promotion/Fall Prevention: activity supervised clutter free environment maintained nonskid shoes/slippers when out of bed room organization consistent safety round/check completed mobility aid in reach Problem: Infection Goal: Absence of Infection Signs and Symptoms Outcome: Progressing Problem: Adult Inpatient Plan of Care Goal: Plan of Care Review Description: The Plan of Care Review/Shift note should be completed every shift. The Outcome Evaluation is a brief statement about your assessment that the patient is improving, declining, or no change. This information will be displayed automatically on your shift note. Outcome: Progressing Flowsheets (Taken 06/11/2024 2343) Plan of Care Reviewed With: patient Goal: [...] Manage Fall Risk Recent Flowsheet Documentation Taken 06/11/20242247 by Micaela Baptiste RN Safety Promotion/Fall Prevention: activity supervised clutter free environment maintained nonskid shoes/slippers when out of bed room organization consistent safety round/check completed mobility aid in reach Intervention: Prevent Skin Injury Recent Flowsheet Documentation Taken 06/11/20242247 by Micaela Baptiste RN Body Position: position maintained prone Intervention: Prevent and Manage VTE (Venous Thromboembolism) Risk Recent Flowsheet Documentation Taken 06/11/20242247 by Micaela Baptiste RN VTE Prevention/Management: SCDs off (sequential compression devices) Intervention: Prevent Infection Recent Flowsheet Documentation Taken 06/11/20242247 by Micaela Baptiste RN Infection Prevention: hand hygiene promoted equipment surfaces disinfected rest/sleep promoted single patient room provided Goal: Optimal Comfort and Wellbeing Outcome: Progressing Goal: Readiness for Transition of Care Outcome: Progressing Problem: Pain Acute Goal: Optimal Pain Control and Function Outcome: Progressing Intervention: Prevent or Manage Pain Recent Flowsheet Documentation Taken 06/11/20242247 by Micaela Baptiste RN Medication Review/Management: medications reviewed Problem: Fall Injury Risk Goal: Absence of Fall and Fall-Related Injury Outcome: Progressing Intervention: Identify and Manage Contributors Recent Flowsheet Documentation Taken 06/11/20242247 by Micaela Baptiste RN Medication Review/Management: medications reviewed Intervention: Promote Injury-Free Environment Recent Flowsheet Documentation Taken 06/11/20242247 by Micaela Baptiste RN Safety Promotion/Fall Prevention: activity supervised clutter free environment maintained nonskid shoes/slippers when out of bed room organization consistent safety round/check completed mobility aid in reach Problem: Infection Goal: Absence of Infection Signs and Symptoms Outcome: Progressing Will continue to provide supportive cares. Micaela Baptiste RN Plan of Care Reviewed With: patient * Plan of Care - Lindsey Good RN - 06/11/2024 8:01 PM CDT Getting ready for discharge and patient was visually shivering, temperature 100.4 orally and BP waselevated the rest of VSS. BG checked 89. Initially slightly difficult to arouse/respond just wanting to sleep but then responded. Was refusing to go to the bathroom but spouse verbally encouraged patient and was able to get him to agree to go to the bathroom. Got patient to bathroom (incontinent ofbladder in bed), voided in toilet, loose stool. PRN tylenol given - CC contacted, held discharge and ordered blood cultures. Patient resting in bed currently and VSS. Goal Outcome Evaluation: Plan of Care Reviewed With: patient & spouse Overall Patient Progress: declining Outcome Evaluation: around 1730 - patient was shivering and temperature was 100.4, elevated BP. difficult to arouse, refusing to go to the bathroom. CC contacted - discharge cancelled & blood cultures ordered; PRN tylenol given. Problem: Adult Inpatient Plan of Care Goal: Plan of Care Review Description: The Plan of Care Review/Shift note should be completed every shift. The Outcome Evaluation is a brief statement about your assessment that the patient is improving, declining, or no change. This information will be displayed automatically on your shift note. 06/11/20241958 by Lindsey Good, RN Outcome: Not Progressing Flowsheets (Taken 06/11/20241958) Outcome Evaluation: around 1730 - patient was shivering and temperature was 100.4, elevated BP. difficult to arouse, refusing to go to the bathroom. CC contacted - discharge cancelled & blood cultures ordered PRN tylenol given. Overall Patient Progress: declining 06/11/20241025 by Lindsey Good, RN Outcome: Progressing Flowsheets (Taken 06/11/2024 1026) Outcome Evaluation: A&Ox4, low motivation to get out of bed. Voiding, incontinent of bladder/bowel. Denies pain. PIV infusing NaCl at 100ml/hr. Plan: urology following. Plan of Care Reviewed With: patient Overall [...] wake me up as it startles me. 06/11/20241958 by Lindsey Good, RN Outcome: Not Progressing 06/11/20241025 by Lindsey Good, PILO Outcome: Progressing Goal: Absence of Hospital-Acquired Illness or Injury 06/11/20241958 by Lindsey Good, RN Outcome: Not Progressing 06/11/20241025 by Lindsey Good, RN Outcome: Progressing Intervention: Identify and Manage Fall Risk Recent Flowsheet Documentation Taken 06/11/2024 08 by Lindsey Good, PILO Safety Promotion/Fall Prevention: activity supervised clutter free environment maintained nonskid shoes/slippers when out of bed room organization consistent safety round/check completed mobility aid in reach Intervention: Prevent Skin Injury Recent Flowsheet Documentation Taken 06/11/2024 08 by Lindsey Good, RN Body Position: position maintained prone Intervention: Prevent and Manage VTE (Venous Thromboembolism) Risk Recent Flowsheet Documentation Taken 06/11/2024 08 by Lindsey Good RN VTE Prevention/Management: SCDs off (sequential compression devices) Intervention: Prevent Infection Recent Flowsheet Documentation Taken 06/11/2024 08 by Lindsey Good, RN Infection Prevention: hand hygiene promoted equipment surfaces disinfected rest/sleep promoted single patient room provided Goal: Optimal Comfort and Wellbeing 06/11/20241958 by Lindsey Good, RN Outcome: Not Progressing 06/11/2024 1026 by Lindsey Good RN Outcome: Progressing Goal: Readiness for Transition of Care 06/11/20241958 by Lindsey Good RN Outcome: Not Progressing 06/11/2024 1026 by Lindsey Good RN Outcome: Progressing Problem: Fall Injury Risk Goal: Absence of Fall and Fall-Related Injury 06/11/20241958 by Lindsey Good RN Outcome: Not Progressing 06/11/2024 1026 by Lindsey Good RN Outcome: Progressing Intervention: Identify and Manage Contributors Recent Flowsheet Documentation Taken 06/11/2024 0800 by Lindsey Good RN Medication Review/Management: medications reviewed Intervention: Promote Injury-Free Environment Recent Flowsheet Documentation Taken 06/11/2024 08 by Lindsey Good RN Safety Promotion/Fall Prevention: activity supervised clutter free environment maintained nonskid shoes/slippers when out of bed room organization consistent safety round/check completed mobility aid in reach Problem: Infection Goal: Absence of Infection Signs and Symptoms 06/11/20241958 by Lindsey Good RN Outcome: Not Progressing 06/11/2024 102 by Lindsey Good RN Outcome: Progressing * Plan of Care - Lindsey Good RN - 06/11/2024 10:27 AM CDT PRIMARY DIAGNOSIS: Urosepsis with nephrolithiasis/Bacteremia with Klebsiella Pneumonia OUTPATIENT/OBSERVATION GOALS TO BE MET BEFORE DISCHARGE: 1. Stable vital signs Yes 2. Tolerating diet:Yes 3. Pain controlled with oral pain medications: No pain 4. Positive bowel sounds: Yes 5. Voiding without difficulty: Yes - incontinent with no motivation to change or use bathroom. 6. Able to ambulate: Yes 7. Provider specific discharge goals met: Yes - Urology is signing off Screen Printing Supervisor Nurse Safe discharge environment identified: Yes - home with and daughter Barriers to discharge: Yes - continue with Abx and improving Creatinine levels with IVFs. Entered by: Lindsey Good RN 06/11/2024 10:28 AM A&Ox4, occ. Forgetfulness. SBA for ambulation with GB. LS CTA and on RA, denies SOB/Cough. Stool sample results returned from lab, negative of infectious findings. PIV infusing NaCl at 100ml/hr (new bag initiated this AM); IV Rocephin Q24hr. Elevated Creat - cont. IVF. Regular Diet - needs encouragement to sit up and eat; otherwise will sleep. Denies pain. Rea removed yesterday; voiding spontaneously - light orange/pink output. Incontinent of bladder/bowel will not call for assistance butwill remain soiled until staff come and check on him. Has strainer for urine in room to attempt stone collection. On Mag protocol - 1.6, no replacement needed and lab ordered to be rechecked tomorrowAM. Plan: Urology has signed off currently, continue IVF for decrease creat levels, and abx. PT following as well. Please review provider order for any additional goals. Nurse to notify provider when observation goals have been met and patient is ready for discharge. Goal Outcome Evaluation: Plan of Care Reviewed With: patient Overall Patient Progress: no change Outcome Evaluation: A&Ox4, low motivation to get out of bed. Voiding, incontinent of bladder/bowel. Denies pain. PIV infusing NaCl at 100ml/hr. Plan: urology following. Problem: Adult Inpatient Plan of Care Goal: Plan of Care Review Description: The Plan of Care Review/Shift note should be completed every shift. The Outcome Evaluation is a brief statement about your assessment that the patient is improving, declining, or no change. This information will be displayed automatically on your shift note. Outcome: Progressing Flowsheets (Taken 06/11/2024 1026) Outcome Evaluation: A&Ox4, low motivation to get out of bed. Voiding, incontinent of bladder/bowel. Denies pain. PIV infusing NaCl at 100ml/hr. Plan: urology following. Plan of Care Reviewed With: patient Overall [...] Manage Fall Risk Recent Flowsheet Documentation Taken 06/11/2024 0800 by Lindsey Good RN Safety Promotion/Fall Prevention: activity supervised clutter free environment maintained nonskid shoes/slippers when out of bed room organization consistent safety round/check completed mobility aid in reach Intervention: Prevent Skin Injury Recent Flowsheet Documentation Taken 06/11/2024799 by Lindsey Good RN Body Position: position maintained prone Intervention: Prevent and Manage VTE (Venous Thromboembolism) Risk Recent Flowsheet Documentation Taken 06/11/2024 08 by Lindsey Good RN VTE Prevention/Management: SCDs off (sequential compression devices) Intervention: Prevent Infection Recent Flowsheet Documentation Taken 06/11/2024799 by Lindsey Good RN Infection Prevention: hand hygiene promoted equipment surfaces disinfected rest/sleep promoted single patient room provided Goal: Optimal Comfort and Wellbeing Outcome: Progressing Goal: Readiness for Transition of Care Outcome: Progressing Problem: Fall Injury Risk Goal: Absence of Fall and Fall-Related Injury Outcome: Progressing Intervention: Identify and Manage Contributors Recent Flowsheet Documentation Taken 06/11/2024799 by Lindsey Good RN Medication Review/Management: medications reviewed Intervention: Promote Injury-Free Environment Recent Flowsheet Documentation Taken 06/11/2024799 by Lindsey Good RN Safety Promotion/Fall Prevention: activity supervised clutter free environment maintained nonskid shoes/slippers when out of bed room organization consistent safety round/check completed mobility aid in reach Problem: Infection Goal: Absence of Infection Signs and Symptoms Outcome: Progressing * Plan of Care - Dipesh Gomez RN - 06/11/2024 7:01 AM CDT [id number] Inpatient Progress Note: BP (!) 155/76 (BP Location: Right arm) Pulse 81 Temp 98.7 ??F (37.1 ??C) (Oral) Resp 19 Ht 1.803 m (5' 11) Wt 73 kg (160 lb 15 oz) SpO2 96% BMI 22.45 kg/m?? Patient is Alert and Oriented x4 but forgetful. 1 Assist with Gait Belt and Walker.Pt is a Regular diet. denying pain. Voiding normal, Patient has Normal Saline 0.9% running at 100 mL per hour. Rocephin q24hrs. Goal Outcome Evaluation: Plan of Care Reviewed With: patient Overall Patient Progress: improvingOverall Patient Progress: improving Problem: Adult Inpatient Plan of Care Goal: Plan of Care Review Description: Outcome: Progressing Flowsheets (Taken 06/11/2024 0701) Plan of Care Reviewed With: patient Overall [...] Manage Fall Risk Recent Flowsheet Documentation Taken 06/10/20242352 by Dipesh Gomez RN Safety Promotion/Fall Prevention: activity supervised clutter free environment maintained nonskid shoes/slippers when out of bed room organization consistent safety round/check completed Intervention: Prevent Skin Injury Recent Flowsheet Documentation Taken 06/10/20242352 by Dipesh Gomez RN Body Position: position maintained Device Skin Pressure Protection: adhesive use limited tubing/devices free from skin contact Intervention: Prevent and Manage VTE (Venous Thromboembolism) Risk Recent Flowsheet Documentation Taken 06/10/20242352 by Dipesh Gomez RN VTE Prevention/Management: SCDs off (sequential compression devices) Intervention: Prevent Infection Recent Flowsheet Documentation Taken 06/10/20242352 by Dipesh Gomez RN Infection Prevention: hand hygiene promoted equipment surfaces disinfected rest/sleep promoted single patient room provided Goal: Optimal Comfort and Wellbeing Outcome: Progressing Goal: Readiness for Transition of Care Outcome: Progressing Problem: Pain Acute Goal: Optimal Pain Control and Function Outcome: Progressing Intervention: Prevent or Manage Pain Recent Flowsheet Documentation Taken 06/10/20242352 by Dipesh Gomez RN Medication Review/Management: medications reviewed Problem: Fall Injury Risk Goal: Absence of Fall and Fall-Related Injury Outcome: Progressing Intervention: Identify and Manage Contributors Recent Flowsheet Documentation Taken 06/10/20242352 by Dipesh Gomez RN Medication Review/Management: medications reviewed Intervention: Promote Injury-Free Environment Recent Flowsheet Documentation Taken 06/10/20242352 by Dipesh Gomez RN Safety Promotion/Fall Prevention: activity supervised clutter free environment maintained nonskid shoes/slippers when out of bed room organization consistent safety round/check completed Problem: Infection Goal: Absence of Infection Signs and Symptoms Outcome: Progressing Intervention: Prevent or Manage Infection Recent Flowsheet Documentation Taken 06/10/2024 3323 by Dipesh Gomez RN Isolation Precautions: enteric precautions discontinued * Plan of Care - Alayna Lindsay RN - 06/10/2024 10:06 PM CDT [id number] Inpatient Progress Note: BP (!) 166/77 (BP Location: Right arm) Pulse 68 Temp 99.1 ??F (37.3 ??C) (Oral) Resp 20 Ht 1.803 m (5' 11) Wt 73 kg (160 lb 15 oz) SpO2 97% BMI 22.45 kg/m?? Orientation: A&O x4 Pain status: Denies pain Activity: Ax1 W GB Resp: WDL, denies SOB Cardiac: WDL, denies chest pain GI: X, loose stools- Enteric panel neg : X, incontinent Skin: X, pale Infusions: NS 100ml/hr- abx rocephin Pertinent Labs: Mag protocol, creatinine 1.97 Diet: regular Consults: Urology/SW/PT Discharge Plan: Discharge home w Rea removed today- voiding. BC and UC positive for Klebsiella pneumoniae Will continue to monitor and provide cares. Alayna Lindsay RN Problem: Adult Inpatient Plan of Care Goal: Plan of Care Review Description: The Plan of Care Review/Shift note should be completed every shift. The Outcome Evaluation is a brief statement about your assessment that the patient is improving, declining, or no change. This information will be displayed automatically on your shift note. Outcome: Progressing Flowsheets (Taken 06/10/20242204) Outcome Evaluation: A&O x4, Ax1 walker GB, NS 100 ml/hr. Rea taken out today, urology following- strainer in room. SW/PT following Plan of Care Reviewed With: patient Overall [...] Manage Fall Risk Recent Flowsheet Documentation Taken 06/10/20242111 by Alayna Lindsay RN Safety Promotion/Fall Prevention: activity supervised nonskid shoes/slippers when out of bed room near nurse's station room organization consistent safety round/check completed Intervention: Prevent Skin Injury Recent Flowsheet Documentation Taken 06/10/20242111 by Alayna Lindsay RN Body Position: position changed independently Intervention: Prevent and Manage VTE (Venous Thromboembolism) Risk Recent Flowsheet Documentation Taken 06/10/20242111 by Alayna Lindsay RN VTE Prevention/Management: SCDs off (sequential compression devices) Intervention: Prevent Infection Recent Flowsheet Documentation Taken 06/10/20242111 by Alayna Lindsay RN Infection Prevention: hand hygiene promoted equipment surfaces disinfected rest/sleep promoted single patient room provided Goal: Optimal Comfort and Wellbeing Outcome: Progressing Goal: Readiness for Transition of Care Outcome: Progressing Problem: Pain Acute Goal: Optimal Pain Control and Function Outcome: Progressing Intervention: Prevent or Manage Pain Recent Flowsheet Documentation Taken 06/10/20242111 by Alayna Lindsay RN Medication Review/Management: medications reviewed Problem: Fall Injury Risk Goal: Absence of Fall and Fall-Related Injury Outcome: Progressing Intervention: Identify and Manage Contributors Recent Flowsheet Documentation Taken 06/10/20242111 by Alayna Lindsay RN Medication Review/Management: medications reviewed Intervention: Promote Injury-Free Environment Recent Flowsheet Documentation Taken 06/10/20242111 by Alayna Lindsay RN Safety Promotion/Fall Prevention: activity supervised nonskid shoes/slippers when out of bed room near nurse's station room organization consistent safety round/check completed Problem: Infection Goal: Absence of Infection Signs and Symptoms Outcome: Progressing Intervention: Prevent or Manage Infection Recent Flowsheet Documentation Taken 06/10/20242111 by Sirek, Alayna E, RN Isolation Precautions: enteric precautions discontinued Goal Outcome Evaluation: Plan of Care Reviewed With: patient Overall Patient Progress: improvingOverall Patient Progress: improving Outcome Evaluation: A&O x4, Ax1 walker GB, NS 100 ml/hr. Rea taken out today, urology following- strainer in room. SW/PT following * Plan of Care - Lindsey Good RN - 06/10/2024 7:26 PM CDT PRIMARY DIAGNOSIS: Urosepsis with nephrolithiasis/Bacteremia with Klebsiella Pneumonia OUTPATIENT/OBSERVATION GOALS TO BE MET BEFORE DISCHARGE 1. Pain Status: Pain free. 2. Tolerating adequate PO diet: Yes 3. Surgical Intervention planned: Yes - POD 1 Cystoscopy, right retrograde pyelogram, interpretation of fluoroscopic images. Right ureteral stent placement 4. Cleared by consultants (if involved): No 5. Return to near baseline physical activity: No Screen Printing Supervisor Nurse Safe discharge environment identified: Yes Barriers to discharge: Yes Entered by: Lindsey Good RN 06/10/2024 4:04 PM A&Ox4, occ. Forgetfulness. SBA for ambulation with GB. LS CTA and on RA, denies SOB/Cough. Stool sample results returned from lab, negative of infectious findings. PIV infusing NaCl at 100ml/hr; IV Rocephin Q24hr. Elevated Creat - cont. IVF. Regular Diet - needs encouragement to sit up and eat;otherwise will sleep. Denies pain. Rea removed today; voiding spontaneously - red, orange output.Incontinent of bladder/bowel will not call for assistance but will remain soiled until staff come and check on him. Has strainer for urine in room to attempt stone collection. Ambulated x2 this afternoon with patient and GB. On Mag protocol - lab recheck in AM. Plan: Urology following, PT consulted. Possible discharge tomorrow Please review provider order for any additional goals. Nurse to notify provider when observation goals have been met and patient is ready for discharge. Goal Outcome Evaluation: Plan of Care Reviewed With: patient Overall Patient Progress: improving Outcome Evaluation: A&Ox4, needs encouragement to perform ADLs (low self- motivation); Rea Cath removed; voiding spontaneously - strainer in room with attempt to collect kidney stone Problem: Adult Inpatient Plan of Care Goal: Plan of Care Review Description: The Plan of Care Review/Shift note should be completed every shift. The Outcome Evaluation is a brief statement about your assessment that the patient is improving, declining, or no change. This information will be displayed automatically on your shift note. Outcome: Progressing Flowsheets (Taken 06/10/2024 1600) Outcome Evaluation: A&Ox4, needs encouragement to perform ADLs (low self-motivation) Rea Cath removed voiding spontaneously - strainer in room with attempt to collect kidney stone Plan of Care Reviewed With: patient Overall [...] Manage Fall Risk Recent Flowsheet Documentation Taken 06/10/2024 1553 by Lindsey Good RN Safety Promotion/Fall Prevention: activity supervised nonskid shoes/slippers when out of bed room near nurse's station room organization consistent safety round/check completed Intervention: Prevent Skin Injury Recent Flowsheet Documentation Taken 06/10/2024 1553 by Lindsey Good RN Body Position: position changed independently Intervention: Prevent and Manage VTE (Venous Thromboembolism) Risk Recent Flowsheet Documentation Taken 06/10/2024 1553 by Lindsey Good RN VTE Prevention/Management: SCDs off (sequential compression devices) Intervention: Prevent Infection Recent Flowsheet Documentation Taken 06/10/2024 1553 by Lindsey Good RN Infection Prevention: hand hygiene promoted equipment surfaces disinfected rest/sleep promoted single patient room provided Goal: Optimal Comfort and Wellbeing Outcome: Progressing Goal: Readiness for Transition of Care Outcome: Progressing Problem: Fall Injury Risk Goal: Absence of Fall and Fall-Related Injury Outcome: Progressing Intervention: Identify and Manage Contributors Recent Flowsheet Documentation Taken 06/10/2024 1553 by Lindsey Good, auto inspection specialist Review/Management: medications reviewed Intervention: Promote Injury-Free Environment Recent Flowsheet Documentation Taken 06/10/2024 1553 by Lindsey Good RN Safety Promotion/Fall Prevention: activity supervised nonskid shoes/slippers when out of bed room near nurse's station room organization consistent safety round/check completed Problem: Infection Goal: Absence of Infection Signs and Symptoms Outcome: Progressing Intervention: Prevent or Manage Infection Recent Flowsheet Documentation Taken 06/10/2024 1553 by Lindsey Good RN Isolation Precautions: enteric precautions discontinued * Provider Notification - Yue Vazquez RN - 06/10/2024 1:01 PM CDT Rea removed at 1000 and patient voided and bladder scanned for 49. Enteric and Cdiff negative andenteric precautions removed. * Provider Notification - Yue Vazquez RN - 06/10/2024 11:58 AM CDT BC and UC both positive for Klebsiella Pneumoniae. C-diff negative, Enteric pending. * Plan of Care - Yue Vazquez RN - 06/10/2024 10:01 AM CDT PRIMARY DIAGNOSIS: Urosepsis with nephrolithiasis/Bacteremia with Klebsiella pneumonia OUTPATIENT/OBSERVATION GOALS TO BE MET BEFORE DISCHARGE: ADLs back to baseline: Yes Activity and level of assistance: SBA with GB Pain status: Pain free. Return to near baseline physical activity: Yes Screen Printing Supervisor Nurse Safe discharge environment identified: Yes Barriers to discharge: Yes Entered by: Yue Vazquez RN 06/10/2024 10:01 AM Patient is alert and oriented, but can be forgetful. VS WNL and documented on FS. Lung sounds clearand patient is on RA. Denies SOB. Active bowel sounds with 2 bm's this morning (brown and loose). Stool sample sent to lab to r/t c-diff and enteric panel. Patient needs help with hygiene after a BM.Rea had watermelon urine in this morning and patent. Rea removed at 1000 and will do a voiding trial in around 4-6hr. SBA with GB when up. Regular diet and needs encouragement to sit and eat. Patient would like to stay in bed all day and sleep, so staff need to encourage him to get up to the chair and ambulate the halls. Patient continues on Rocephin Q24hrs for the bacteremia. Creat elevated a t 1.97 and patient will stay on the IV fluids (NS at 100 ml/hr). WBC at 15.7 was 15.9. Mag at 2.3 and no replacement needed. UC pending and BC positive for Klebsiela pneumoniae. Urology following. BP 126/62 (BP Location: Left arm) Pulse 64 Temp 97.9 ??F (36.6 ??C) (Oral) Resp 18 Ht 1.803m (5' 11) Wt 73 kg (160 lb 15 oz) SpO2 94% BMI 22.45 kg/m?? Please review provider order for any additional goals. Nurse to notify provider when observation goals have been met and patient is ready for discharge. Problem: Adult Inpatient Plan of Care Goal: Plan of Care Review Description: The Plan of Care Review/Shift note should be completed every shift. The Outcome Evaluation is a brief statement about your assessment that the patient is improving, declining, or no change. This information will be displayed automatically on your shift note. Outcome: Progressing Flowsheets (Taken 06/10/2024 1000) Outcome Evaluation: needs encouragement to move Plan of Care Reviewed With: patient Overall [...] of Hospital-Acquired Illness or Injury Outcome: Progressing Goal: Optimal Comfort and Wellbeing Outcome: Progressing Goal: Readiness for Transition of Care Outcome: Progressing Goal Outcome Evaluation: Plan of Care Reviewed With: patient Overall Patient Progress: improvingOverall Patient Progress: improving Outcome Evaluation: needs encouragement to move * Plan of Care - Alayna Lindsay RN - 06/10/2024 4:24 AM CDT [id number] Inpatient Progress Note: BP 125/64 (BP Location: Left arm) Pulse 72 Temp 98 ??F (36.7 ??C) (Oral) Resp 18 Ht 1.803 m(5' 11) Wt 73 kg (160 lb 15 oz) SpO2 92% BMI 22.45 kg/m?? 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 Will continue to monitor and provide cares. Alayna Lindsay RN Problem: Adult Inpatient Plan of Care Goal: Plan of Care Review Description: The Plan of Care Review/Shift note should be completed every shift. The Outcome Evaluation is a brief statement about your assessment that the patient is improving, declining, or no change. This information will be displayed automatically on your shift note. Outcome: Progressing Flowsheets (Taken 06/10/2024 0422) Outcome Evaluation: Pt denies pain, A&O x3, forgetful at times. rea in place- pink/red color w some mucus/sediemnt presence. Monitoring Creatinine and leukocytes for improvement and possible removal of rea. Urology is following. abx rocephin. New IV placed. Enertic precautions for C.diff rule out. still need stool sample. Plan of Care Reviewed With: patient Overall [...] Manage Fall Risk Recent Flowsheet Documentation Taken 06/09/20242047 by Alayna Lindsay RN Safety Promotion/Fall Prevention: activity supervised clutter free environment maintained increase visualization of patient increased rounding and observation nonskid shoes/slippers when out of bed patient and family education treat underlying cause treat reversible contributory factors safety round/check completed room organization consistent Intervention: Prevent Skin Injury Recent Flowsheet Documentation Taken 06/09/20242047 by Alayna Lindsay RN Body Position: position changed independently Intervention: Prevent Infection Recent Flowsheet Documentation Taken 06/09/20242047 by Alayna Lindsay RN Infection Prevention: visitors restricted/screened environmental surveillance performed equipment surfaces disinfected hand hygiene promoted Goal: Optimal Comfort and Wellbeing Outcome: Progressing Goal: Readiness for Transition of Care Outcome: Progressing Problem: Pain Acute Goal: Optimal Pain Control and Function Outcome: Progressing Intervention: Prevent or Manage Pain Recent Flowsheet Documentation Taken 06/09/20242047 by Alayna Lindsay RN Medication Review/Management: medications reviewed Problem: Fall Injury Risk Goal: Absence of Fall and Fall-Related Injury Outcome: Progressing Intervention: Identify and Manage Contributors Recent Flowsheet Documentation Taken 06/09/20242047 by Alayna Lindsay RN Medication Review/Management: medications reviewed Intervention: Promote Injury-Free Environment Recent Flowsheet Documentation Taken 06/09/20242047 by Alayna Lindsay RN Safety Promotion/Fall Prevention: activity supervised clutter free environment maintained increase visualization of patient increased rounding and observation nonskid shoes/slippers when out of bed patient and family education treat underlying cause treat reversible contributory factors safety round/check completed room organization consistent Problem: Infection Goal: Absence of Infection Signs and Symptoms Outcome: Progressing Intervention: Prevent or Manage Infection Recent Flowsheet Documentation Taken 06/09/20242047 by Alayna Lindsay RN Isolation Precautions: enteric precautions maintained Goal Outcome Evaluation: Plan of Care Reviewed With: patient Overall Patient Progress: improvingOverall Patient Progress: improving Outcome Evaluation: Pt denies pain, A&O x3, forgetful at times. rea in place- pink/red color w some mucus/sediemnt presence. Monitoring Creatinine and leukocytes for improvement and possible removal of rea. Urology is following. abx rocephin. New IV placed. Enertic precautions for C.diff rule out. still need stool sample. * Plan of Care - Sylvia Camacho RN - 06/09/2024 5:00 PM CDT Problem: Adult Inpatient Plan of Care Goal: Plan of Care Review Description: The Plan of Care Review/Shift note should be completed every shift. The Outcome Evaluation is a brief statement about your assessment that the patient is improving, declining, or no change. This information will be displayed automatically on your shift note. Outcome: Progressing Flowsheets (Taken 06/09/2024 0873) Outcome Evaluation: Pt is stable , afebrile. Denies pain. Eatiing meals without difficulty. Urine color is a watermelom color with some mucus/sediment presence. Monitoring creatinine and leukocytes for improvement. Pt states he is feeling a bit better today. Plan of Care Reviewed With: patient Overall [...] Manage Fall Risk Recent Flowsheet Documentation Taken 06/09/2024 161 by Sylvia Camacho RN Safety Promotion/Fall Prevention: activity supervised clutter free environment maintained increase visualization of patient increased rounding and observation nonskid shoes/slippers when out of bed patient and family education treat underlying cause treat reversible contributory factors safety round/check completed room organization consistent Intervention: Prevent Infection Recent Flowsheet Documentation Taken 06/09/2024 161 by Sylvia Camacho, RN Infection Prevention: visitors restricted/screened environmental surveillance performed equipment surfaces disinfected hand hygiene promoted Goal: Optimal Comfort and Wellbeing Outcome: Progressing Goal: Readiness for Transition of Care Outcome: Progressing Goal Outcome Evaluation: Plan of Care Reviewed With: patient Overall Patient Progress: improvingOverall Patient Progress: improving Outcome Evaluation: Pt is stable , afebrile. Denies pain. Eatiing meals without difficulty. Urine color is a watermelom color with some mucus/sediment presence. Monitoring creatinine and leukocytes for improvement. Pt states he is feeling a bit better today. * Plan of Care - Kelly Jensen RN - 06/09/2024 2:14 PM CDT Goal Outcome Evaluation: Plan of Care Reviewed With: patient Overall Patient Progress: no change Outcome Evaluation: Pt A&Ox4, forgetful and drowsy. Thinks they are in here for stroke instead of stent placement. Denies pain/nausea/vomiting. Complains of numbness of LE, cool to touch, cap refill < [address] until tomorrow, output is serosanguinous/no clots, 650 mL urine emptied. Enteric isolation. No loose stool this shift. Blood cultures came back positive. Urine culturespending. Pt on rocephin for urosepsis. Pt on RN Mg replacement, and replaced. Creatinine at 2.49, pt continues on IV fluids 100 mL/hr 0.9% NS. BP 136/70 (BP Location: Right arm) Pulse 82 Temp 98.9 ??F (37.2 ??C) (Oral) Resp 18 Ht 1.803 m (5' 11) Wt 73 kg (160 lb 15 oz) SpO2 94% BMI 22.45 kg/m?? Problem: Adult Inpatient Plan of Care Goal: Plan of Care Review Description: The Plan of Care Review/Shift note should be completed every shift. The Outcome Evaluation is a brief statement about your assessment that the patient is improving, declining, or no change. This information will be displayed automatically on your shift note. 06/09/2024 1413 by Kelly Jensen RN Flowsheets (Taken 06/09/2024 1412) Plan of Care Reviewed With: patient Overall Patient Progress: no change 06/09/2024 1408 by Kelly Jensen RN Outcome: Progressing Flowsheets (Taken 06/09/2024 1400) Outcome Evaluation: Pt A&Ox4, slight dementia and drowsy. Denies pain/nausea/vomiting. Complains of numbness of LE, cool to touch, cap refill < [address], blood Plan of Care Reviewed With: patient Overall [...] Manage Fall Risk Recent Flowsheet Documentation Taken 06/09/2024 08 by Kelly Jensen RN Safety Promotion/Fall Prevention: supervised activity safety round/check completed room organization consistent room near nurse's station nonskid shoes/slippers when out of bed lighting adjusted clutter free environment maintained Intervention: Prevent Skin Injury Recent Flowsheet Documentation Taken 06/09/2024 0830 by Kelly Jensen RN Body Position: supine Taken 06/09/2024 0803 by Kelly Jensen RN Body Position: supine Intervention: Prevent and Manage VTE (Venous Thromboembolism) Risk Recent Flowsheet Documentation Taken 06/09/2024 0830 by Kelly Jensen RN VTE Prevention/Management: SCDs off (sequential compression devices) Intervention: Prevent Infection Recent Flowsheet Documentation Taken 06/09/2024 0830 by Kelly Jensen RN Infection Prevention: hand hygiene promoted personal protective equipment utilized rest/sleep promoted single patient room provided Goal: Optimal Comfort and Wellbeing Outcome: Progressing Goal: Readiness for Transition of Care Outcome: Progressing Intervention: Mutually Develop Transition Plan Recent Flowsheet Documentation Taken 06/09/2024 0811 by Kelly Jensen RN Equipment Currently Used at Home: none * Pharmacy-Admission Medication History - Ariella Pino RPH - 06/09/2024 12:02 PM CDT Pharmacist Admission Medication History Admission medication history is complete. The information provided in this note is only as accurateas the sources available at the time of the update. Information Source(s): Family member and CareEverywhere/SureScripts via phone Pertinent Information: Changes made to INFORMATION MANAGER medication list: Added: None Deleted: None Changed: Aricept 5mg qhs-->10mg qhs Allergies reviewed with patient and updates made in EHR: unable to assess Medication History Completed By: Peggy Pino, PharmD 06/09/2024 12:04 PM INFORMATION MANAGER Med List Medication Sig Last Dose aspirin 81 MG EC tablet Take 81 mg by mouth every morning 06/08/2024 atorvastatin (LIPITOR) 80 MG tablet Take 1 tablet (80 mg) by mouth every evening 06/07/2024 cyanocobalamin (CYANOCOBALAMIN) 1000 MCG/ML injection Inject 1 mL into the muscle every 30 days 05/24/2024 disulfiram (ANTABUSE) 250 MG tablet Take 1 tablet (250 mg) by mouth daily 06/07/2024 donepezil (ARICEPT) 5 MG tablet Take 1 tablet (5 mg) by mouth at bedtime (Patient taking differently: Take 10 mg by mouth at bedtime.) 06/07/2024 escitalopram (LEXAPRO) 20 MG tablet Take 60 mg by mouth every evening 06/07/2024 melatonin 3 MG tablet Take 1 tablet (3 mg) by mouth nightly as needed for sleep 06/04/2024 midodrine (PROAMATINE) 2.5 MG tablet Take 1 tablet (2.5 mg) by mouth 2 times daily Hold if SBP<130. Do not take prior to sleeping 06/07/2024 Multiple Vitamins-Iron (TAB-A-CATRACHO/IRON) TABS Take 1 capsule by mouth daily 06/07/2024 phenylephrine (LEATHA-SYNEPHRINE) 1 % nasal spray Novi 1 drop into both nostrils daily as needed for congestion 06/07/2024 tamsulosin (FLOMAX) 0.4 MG capsule Take 0.8 mg by mouth every evening 06/07/2024 thiamine (B-1) 100 MG tablet Take 100 mg by mouth every evening 06/07/2024 * Significant Event - Kelly Jensen, RN - 06/09/2024 11:33 AM CDT DATE/TIME OF CALL RECEIVED FROM LAB: 06/09/24 at 11:33 AM LAB TEST: Blood culture LAB VALUE: + for klebsiella pneumoniae PROVIDER NOTIFIED?: Yes PROVIDER NAME: Ondina Guerrero DATE/TIME LAB VALUE REPORTED TO PROVIDER: 06/08 11:34 MECHANISM OF PROVIDER NOTIFICATION: [id number] PROVIDER RESPONSE: Ok * Provider Notification - Yue Vazquez RN - 06/09/2024 9:30 AM CDT DATE/TIME OF CALL RECEIVED FROM LAB: 06/09/24 at 9:30 AM LAB TEST: BC from 1023 LAB VALUE: positive for gram negative bacilli PROVIDER NOTIFIED?: Yes PROVIDER NAME: Mary WU DATE/TIME LAB VALUE REPORTED TO PROVIDER: MECHANISM OF PROVIDER NOTIFICATION: [id number] PROVIDER RESPONSE: Ok * Plan of Care - Kelly Jensen RN - 06/09/2024 8:35 AM CDT ROOM # 227 Living Situation (if not independent, order SW consult): 4 level split home 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 Patient has been oriented to the observation room, bathroom and call light is in place. Discussed discharge goals and expectations with patient/family. * Op Note - Kory Mcclure MD - 06/09/2024 6:43 AM CDT SURGEON: Kory Mcclure MD PREOPERATIVE DIAGNOSIS: Right ureteral stone and urinary tract infection POSTOPERATIVE DIAGNOSIS: Right ureteral stone and urinary tract infection PROCEDURE PERFORMED: Cystoscopy, right retrograde pyelogram, interpretation of fluoroscopic images.Right ureteral stent placement ANESTHESIA: General. COMPLICATIONS: None. INDICATIONS FOR PROCEDURE: This is a 68-year-old male who presents with a right ureteral stone and urinary tract infection who now presents for stent placement DESCRIPTION OF PROCEDURE: The risks and benefits of the procedure were explained in detail to the patient and informed consent was obtained. The patient was brought to the operating room and placed supine on the operating room table and underwent general endotracheal anesthetic. The patient was moved down to the dorsal lithotomy position and was prepped and draped in the standard sterile fashion.I inserted the 22 Venezuelan rigid cystoscope through the urethra into the bladder and I performed cystoscopy. There were no urothelial abnormalities identified. I identified the right ureteral orifice and cannulated the orifice with a ureteral catheter. I performed a retrograde pyelogram. There was minimal hydronephrosis and hydroureter down to the mid ureter I passed a Glidewire into the left kidney under fluoroscopic guidance and then I backloaded off theureteral catheter. I then placed a 6 x 28 double-J ureteral stent over the Glidewire. I pulled backthe wire and a good curl was seen in the renal pelvis under fluoroscopy. A good curl was seen in the bladder under direct visualization. Purulent urine drained through the stent. I drained the bladder with a 16 Venezuelan catheter. The patient tolerated the procedure well without complication. The patient went to the postanesthetic care unit in good condition. documented in this encounter Plan of Treatment Upcoming Encounters Date Type Department Care Team (Late st Contact Info) Description 06/29/2024 2:45 PM CDT Office Visit [facility] [id number] [place] [address] Ip, Akash Escobar MD [address] [place] [address] Pending Results Name Type Priority Associated Diagnoses Date /Time Blood Culture Arm, Right Microbiology STAT 06/11/2024 7:08 PM CDT Scheduled Orders Name Type Priority Associated Diagnoses Orde r Schedule Basic metabolic panel Lab Routine SILVANO (acute kidney injury) (H24) Expected: 06/16/2024 (Approximate), Expires: 06/11/2025 Scheduled Procedures Name Priority Associated Diagnoses Date/Ti me CYSTOURETEROSCOPY, WITH LITH OTRIPSY USING LASER AND URETERAL STENT INSERTION Ureteral stone Scheduled Referrals Name Type Priority Associated Diagnoses Order Schedule Primary Care - Care Coordination Referral Referral Routine: Next available opening Sepsis due to urinary tract infection (H) Left ureteral stone SILVANO (acute kidney injury) (H24) Expected: 06/09/2024 (Approximate), Expires: 06/09/2025 Home Care Referral Referral Routine: Next available opening Sepsis due to urinary tract infection (H) Ordered: 06/11/2024 documented as of this encounter Goals Goal Patient Goal Type Associated Problems Recent Progress Patient-Stated? 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 Measure of Success: Caregiver will know if options are available. Supportive Steps to Achieve: CC will send resources via text and caregiver will call. Barriers: recently moved home after rehab. Strengths: Caregiver works, just started with [employer] services today, 1-9 Date to Achieve By: January 17, 2019 Patient expressed understanding of goal: caregiver understands. documented as of this encounter Procedures Procedure Name Priority Date/Time Associated Diagnosis Comments MAGNESIUM Routine 06/12/2024 8:38 AM CDT BASIC [...] CDT MAGNESIUM Timed 06/09/2024 2:23 PM CDT BASIC METABOLIC PANEL STAT 06/09/2024 7:21 AM CDT CBC WITH PLATELETS STAT 06/09/2024 7: 21 AM CDT XR SURGERY KATY FLUORO LESS THAN 5 MIN W STILLS STAT 06/09/2024 6:50 AM CDT CYSTOSCOPY, WITH RETROGRADE PYELOGRAM AND URETERAL STENT INSERTION 06/09/2024 6:31 AM CDT Left ureteral calculus ROUTINE UA WITH MICROSCOPIC REFLEX TO CULTURE STAT 06/09/2024 12:48 AM CDT URINE CULTURE STAT 06/09/2024 12:48 AM CDT XR CHEST 2 VIEWS STAT 06/08/2024 11:[address] ABDOMEN PELVIS W/O CONTRAST STAT 06/08/2024 11:35 PM CDT ISTAT GASES LACTATE VENOUS POCT STAT 06/08/2024 10:25 PM CDT VERIGENE GN PANEL Routine 06/08/2024 10: 24 PM CDT BLOOD CULTURE STAT 06/08/2024 10:24 PM CDT CBC WITH PLATELETS AND DIFFERENTIAL STAT 06/08/2024 8:38 PM CDT PROCALCITONIN STAT 06/08/2024 8:38 PM CDT CBC WITH PLATELETS & DIFFERENTIAL STAT 06/08/2024 8:38 PM CDT MAGNESIUM STAT 06/08/2024 8:38 PM CDT COMPREHENSIVE METABOLIC PANEL STAT 06/08/2024 8:38 PM CDT CK TOTAL STAT 06/08/2024 8:38 PM CDT EKG 12-LEAD, TRACING ONLY STAT 06/08/2024 8:08 PM CDT GLUCOSE BY METER STAT 06/08/2024 8:01 PM CDT documented in this encounter Results * (ABNORMAL) Basic metabolic panel (06/12/2024 8:38 AM CDT) Sodium 140 135 - 145 mmol/L 06/12/2024 9:20 AM CDT LABORATORY Potassium 3.4 3.4 - 5.3 mmol/L 06/12/2024 9:20 AM CDT LABORATORY Chloride 112(H) 98 - 107 mmol/L 06/12/2024 9:20 AM CDT LABORATORY Carbon Dioxide (CO2) 16(L) 22 - 29 mmol/L 06/12/2024 9:20 AM CDT LABORATORY Anion Gap 12 7 - 15 mmol/L 06/12/2024 9:20 AM CDT LABORATORY Urea Nitrogen 22.9 8.0 - 23.0 mg/dL 06/12/2024 9:20 AM CDT LABORATORY Creatinine 1.77(H) 0.67 - 1.17 mg/dL 06/12/2024 9:20 AM CDT LABORATORY GFR Estimate 42(L) >60 mL/min/1.7 3m2 06/12/2024 9:20 AM CDT LABORATORY Comment:eGFR calculated us2020 CKD-EPI equation. Calcium 7.9(L) 8.8 - 10.4 mg/dL 06/12/2024 9:20 AM CDT [facility] Comment:Reference intervals for this test were updated on 05/04/2024 to reflect our healthy population more accurately. There may be differences in the flagging of prior results with similar values performed with this method. Those prior results can be interpreted in the context of the updated reference intervals. Glucose 89 70 - 99 mg/dL 06/12/2024 9:20 AM CDT [facility] Blood STRUCTURE OF RIGHT UPPER LIMB / Unknown Venipuncture / Unknown 06/12/2024 8:38 AM CDT 06/12/2024 8:58 AM CDT Alix Guerrero PA-C LAB - BLOOD ORDERABLES [facility] [address] (1st floor, no room number) [place] [id number] * (ABNORMAL) CBC with platelets (06/12/2024 8:38 AM CDT) WBC Count 10.4 4.0 - 11.0 10e3/uL 06/12/2024 9:12 AM CDT [facility] RBC Count 3.62(L) 4.40 - 5.90 10e6/uL 06/12/2024 9:12 AM CDT [facility] Hemoglobin 10.8(L) 13.3 - 17.7 g/dL 06/12/2024 9:12 AM CDT [facility] Hematocrit 32.7(L) 40.0 - 53.0 % 06/12/2024 9:12 AM CDT [facility] MCV 90 78 - 100 fL 06/12/2024 9:12 AM CDT [facility] MCH 29.8 26.5 - 33.0 pg 06/12/2024 9:12 AM CDT [facility] MCHC 33.0 31.5 - 36.5 g/dL 06/12/2024 9:12 AM CDT [facility] RDW 13.8 10.0 - 15.0 % 06/12/2024 9:12 AM CDT [facility] Platelet Count 100(L) 150 - 450 10e3/uL 06/12/2024 9:12 AM CDT LABORATORY Blood STRUCTURE OF RIGHT UPPER LIMB / Unknown Venipuncture / Unknown 06/12/2024 8:38 AM CDT 06/12/2024 8:58 AM CDT Alix Guerrero PA-C LAB - BLOOD ORDERABLES LABORATORY [facility] [address] Lab (1st floor, no room number) [address] [place] [address] * (ABNORMAL) Magnesium (06/12/2024 8:38 AM CDT) Magnesium 1.5(L) 1.7 - 2.3 mg/dL 06/12/2024 9:20 AM CDT LABORATORY Blood STRUCTURE OF RIGHT UPPER LIMB / Unknown Venipuncture / Unknown 06/12/2024 8:38 AM CDT 06/12/2024 8:58 AM CDT Patricia Jefferson PA-C LAB - BLOOD ORDE [facility] [address] Lab (1st floor, no room number) [place] [id number] [place] [address] * Glucose by meter (06/11/2024 5:53 PM CDT) GLUCOSE BY METER POCT 89 70 - 99 mg/dL 06/11/2024 5:59 PM CDT LABORATORY POC Blood, Capillary BLOOD SPECIMEN / Unknown 06/11/2024 5:53 PM CDT 06/11/2024 5:59 PM CDT Bianca Snowden MD LAB - BEAKER POCT LABORATORY POC [facility] [address] Lab (1st floor, no room number) [address] * (ABNORMAL) Basic metabolic panel (06/11/2024 5:47 AM CDT) Sodium 137 135 - 145 mmol/L 06/11/2024 6:16 AM CDT LABORATORY Potassium 3.4 3.4 - 5.3 mmol/L 06/11/2024 6:16 AM CDT LABORATORY Chloride 111(H) 98 - 107 mmol/L 06/11/2024 6:16 AM CDT LABORATORY Carbon Dioxide (CO2) 15(L) 22 - 29 mmol/L 06/11/2024 6:16 AM CDT LABORATORY Anion Gap 11 7 - 15 mmol/L 06/11/2024 6:16 AM CDT LABORATORY Urea Nitrogen 28.6(H) 8.0 - 23.0 mg/dL 06/11/2024 6:16 AM CDT LABORATORY Creatinine 1.86(H) 0.67 - 1.17 mg/dL 06/11/2024 6:16 AM CDT LABORATORY GFR Estimate 39(L) >60 mL/min/1.7 3m2 06/11/2024 6:16 AM CDT LABORATORY Comment:eGFR calculated usin 2020 CKD-EPI equation. Calcium 8.1(L) 8.8 - 10.4 mg/dL 06/11/2024 6:16 AM CDT LABORATORY Comment:Reference intervals for this test were updated on 05/04/2024 to reflect our healthy population more accurately. There may be differences in the flagging of prior results with similar values performed with this method. Those prior results can be interpreted in the context of the updated reference intervals. Glucose 97 70 - 99 mg/dL 06/11/2024 6:16 AM CDT LABORATORY Blood STRUCTURE OF RIGHT HAND / Unknown Venipuncture / Unknown 06/11/2024 5:47 AM CDT 06/11/2024 5:56 AM CDT Alix Guerrero PA-C LAB - BLOOD ORDERABLES LABORATORY [facility] [address] Lab (1st floor, no room number) [place] [address], [facility] * (ABNORMAL) CBC with platelets (06/11/2024 5:47 AM CDT) WBC Count 6.6 4.0 - 11.0 10e3/uL 06/11/2024 6:04 AM CDT RH LABORATORY RBC Count 3.37(L) 4.40 - 5.90 10e6/uL 06/11/2024 6:04 AM CDT [facility] LABORATORY Hemoglobin 10.2(L) 13.3 - 17.7 g/dL 06/11/2024 6:04 AM CDT [facility] LABORATORY Hematocrit 30.7(L) 40.0 - 53.0 % 06/11/2024 6:04 AM CDT [facility] LABORATORY MCV 91 78 - 100 fL 06/11/2024 6:04 AM CDT [facility] LABORATORY MCH 30.3 26.5 - 33.0 pg 06/11/2024 6:04 AM CDT RH LABORATORY MCHC 33.2 31.5 - 36.5 g/dL 06/11/2024 6:04 AM CDT [facility] LABORATORY RDW 13.6 10.0 - 15.0 % 06/11/2024 6:04 AM CDT [facility] LABORATORY Platelet Count 98(L) 150 - 450 10e3/uL 06/11/2024 6:04 AM CDT RH LABORATORY Blood STRUCTURE OF RIGHT HAND / Unknown Venipuncture / Unknown 06/11/2024 5:47 AM CDT 06/11/2024 5:56 AM CDT Alix Guerrero PA-C LAB - BLOOD ORDERABLES LABORATORY [facility] [address] Lab (1st floor, no room number) [place] [address], [facility] * (ABNORMAL) Magnesium (06/11/2024 5:47 AM CDT) Magnesium 1.6(L) 1.7 - 2.3 mg/dL 06/11/2024 6:16 AM CDT RH LABORATORY Blood STRUCTURE OF RIGHT HAND / Unknown Venipuncture / Unknown 06/11/2024 5:47 AM CDT 06/11/2024 5:56 AM CDT Alix Guerrero PA-C LAB - BLOOD ORDERABLES [facility] Lab [address] [facility] Lab (1st floor, no room number) [place] [address], [facility] * Enteric Bacteria and Virus Panel PCR [...] PM CDT Assay performed using the FDA-cleared FabbeoArray GI Panel from [employer] ??A negative result should not rule [...] by the Infectious Diseases Diagnostic Laboratory at [facility]. This laboratory is certified under the Clinical Laboratory Improvement Amendments of 1988 (CLIA-88) as qualified to perform high complexity clinical laboratory testing. Kory Mcclure MD LAB - MICRO GEN ERAL ORDERABLES [facility] IDD LABORATORY [facility] Inf. Diseases Diag. Lab [address], [address] [place] [address], [facility] * C. difficile Toxin B PCR with reflex to C. difficile Antigen and Toxins A/B EIA (06/10/2024 8:41 AMCDT) [facility] C Difficile Toxin B by PCR Negative [...] LABORATORY - 06/10/2024 11:50 AM CDT [employer] Xpert C. difficile Assay, performed on the [employer] Systems, is a qualitative in vitro [...] MICRO GEN ERAL ORDERABLES [facility] IDD LABORATORY [facility] Inf. Diseases Diag. Lab [address], [address] [place] [address], [facility] * Magnesium (06/10/2024 5:46 AM CDT) [facility] Magnesium 2.3 1.7 - 2.3 mg/dL 06/10/2024 6:52 AM CDT LABORATORY Blood STRUCTURE OF RIGHT UPPER LIMB / Unknown Venipuncture / Unknown 06/10/2024 5:46 AM CDT 06/10/2024 5:59 AM CDT Harvey Novoa DO LAB - BLOOD ORDERAB LES LABORATORY [facility] [address] [facility] Lab (1st floor, no room number) [place] [address], [facility] * (ABNORMAL) Basic metabolic panel (06/10/2024 5:46 AM CDT) Sodium 137 135 - 145 mmol/L 06/10/2024 6:23 AM CDT LABORATORY Potassium 4.0 3.4 - 5.3 mmol/L 06/10/2024 6:23 AM CDT LABORATORY Chloride 111(H) 98 - 107 mmol/L 06/10/2024 6:23 AM CDT LABORATORY Carbon Dioxide (CO2) 15(L) 22 - 29 mmol/L 06/10/2024 6:23 AM CDT LABORATORY Anion Gap 11 7 - 15 mmol/L 06/10/2024 6:23 AM CDT LABORATORY Urea Nitrogen 38.5(H) 8.0 - 23.0 mg/dL 06/10/2024 6:23 AM CDT LABORATORY Creatinine 1.97(H) 0.67 - 1.17 mg/dL 06/10/2024 6:23 AM CDT LABORATORY GFR Estimate 37(L) >60 mL/min/1.7 3m2 06/10/2024 6:23 AM CDT LABORATORY Comment:eGFR calculated usin g 2020 CKD-EPI equation. Calcium 7.9(L) 8.8 - 10.4 mg/dL 06/10/2024 6:23 AM CDT LABORATORY Comment:Reference intervals for this test were updated on 05/04/2024 to reflect our healthy population more accurately. There may be differences in the flagging of prior results with similar values performed with this method. Those prior results can be interpreted in the context of the updated reference intervals. Glucose 131(H) 70 - 99 mg/dL 06/10/2024 6:23 AM CDT LABORATORY Blood STRUCTURE OF RIGHT UPPER LIMB / Unknown Venipuncture / Unknown 06/10/2024 5:46 AM CDT 06/10/2024 5:59 AM CDT Alix Guerrero PA-C LAB - BLOOD ORDERABLES LABORATORY [facility] [address] Lab (1st floor, no room number) [place] [address], [facility] * (ABNORMAL) CBC with platelets (06/10/2024 5:46 AM CDT) WBC Count 15.7(H) 4.0 - 11.0 10e3/uL 06/10/2024 6:17 AM CDT RH LABORATORY RBC Count 3.27(L) 4.40 - 5.90 10e6/uL 06/10/2024 6:17 AM CDT RH LABORATORY Hemoglobin 9.9(L) 13.3 - 17.7 g/dL 06/10/2024 6:17 AM CDT RH LABORATORY Hematocrit 29.7(L) 40.0 - 53.0 % 06/10/2024 6:17 AM CDT RH LABORATORY MCV 91 78 - 100 fL 06/10/2024 6:17 AM CDT RH LABORATORY MCH 30.3 26.5 - 33.0 pg 06/10/2024 6:17 AM CDT RH LABORATORY MCHC 33.3 31.5 - 36.5 g/dL 06/10/2024 6:17 AM CDT RH LABORATORY RDW 13.2 10.0 - 15.0 % 06/10/2024 6:17 AM CDT RH LABORATORY Platelet Count 107(L) 150 - 450 10e3/uL 06/10/2024 6:17 AM CDT RH LABORATORY Blood STRUCTURE OF RIGHT UPPER LIMB / Unknown Venipuncture / Unknown 06/10/2024 5:46 AM CDT 06/10/2024 5:59 AM CDT Alix Guerrero PA-C LAB - BLOOD ORDERABLES RH LABORATORY [facility] [address] [facility] Lab (1st floor, no room number) [place] [address], [facility] * (ABNORMAL) Magnesium (06/09/2024 2:23 PM CDT) Magnesium 2.9(H) 1.7 - 2.3 mg/dL 06/09/2024 3:07 PM CDT RH LABORATORY Blood STRUCTURE OF LEFT HAND / Unknown Venipuncture / Unknown 06/09/2024 2:23 PM CDT 06/09/2024 2:34 PM CDT Alix Guerrero PA-C LAB - BLOOD ORDERABLES LABORATORY [facility] [address] Lab (1st floor, no room number) [place] [address] * (ABNORMAL) CBC with platelets (06/09/2024 7:21 AM CDT) WBC Count 15.9(H) 4.0 - 11.0 10e3/uL 06/09/2024 7:47 AM CDT RH LABORATORY RBC Count 3.53(L) 4.40 - 5.90 10e6/uL 06/09/2024 7:47 AM CDT RH LABORATORY Hemoglobin 10.7(L) 13.3 - 17.7 g/dL 06/09/2024 7:47 AM CDT RH LABORATORY Hematocrit 32.7(L) 40.0 - 53.0 % 06/09/2024 7:47 AM CDT RH LABORATORY MCV 93 78 - 100 fL 06/09/2024 7:47 AM CDT RH LABORATORY MCH 30.3 26.5 - 33.0 pg 06/09/2024 7:47 AM CDT RH LABORATORY MCHC 32.7 31.5 - 36.5 g/dL 06/09/2024 7:47 AM CDT RH LABORATORY RDW 13.3 10.0 - 15.0 % 06/09/2024 7:47 AM CDT RH LABORATORY Platelet Count 109(L) 150 - 450 10e3/uL 06/09/2024 7:47 AM CDT RH LABORATORY Blood BLOOD SPECIMEN / Unknown Venipuncture / Unknown 06/09/2024 7:21 AM CDT 06/09/2024 7:26 AM CDT Harvey Novoa DO LAB - BLOOD ORDERAB LES LABORATORY [facility] [address] Lab (1st floor, no room number) [place] [address], [facility] * (ABNORMAL) Basic metabolic panel (06/09/2024 7:21 AM CDT) Sodium 138 135 - 145 mmol/L 06/09/2024 7:53 AM CDT LABORATORY Potassium 4.1 3.4 - 5.3 mmol/L 06/09/2024 7:53 AM CDT LABORATORY Chloride 107 98 - 107 mmol/L 06/09/2024 7:53 AM CDT LABORATORY Carbon Dioxide (CO2) 17(L) 22 - 29 mmol/L 06/09/2024 7:53 AM CDT LABORATORY Anion Gap 14 7 - 15 mmol/L 06/09/2024 7:53 AM CDT LABORATORY Urea Nitrogen 38.3(H) 8.0 - 23.0 mg/dL 06/09/2024 7:53 AM CDT LABORATORY Creatinine 2.49(H) 0.67 - 1.17 mg/dL 06/09/2024 7:53 AM CDT LABORATORY GFR Estimate 28(L) >60 mL/min/1.7 3m2 06/09/2024 7:53 AM CDT RH LABORATORY Comment:eGFR calculated usin g 2020 CKD-EPI equation. Calcium 7.7(L) 8.8 - 10.4 mg/dL 06/09/2024 7:53 AM CDT LABORATORY Comment:Reference intervals for this test were updated on 05/04/2024 to reflect our healthy population more accurately. There may be differences in the flagging of prior results with similar values performed with this method. Those prior results can be interpreted in the context of the updated reference intervals. Glucose 100(H) 70 - 99 mg/dL 06/09/2024 7:53 AM CDT LABORATORY Blood BLOOD SPECIMEN / Unknown Venipuncture / Unknown 06/09/2024 7:21 AM CDT 06/09/2024 7:26 AM CDT Harvey Novoa DO LAB - BLOOD ORDERAB LES LABORATORY [facility] [address] [facility] Lab (1st floor, no room number) [place] [address], [facility] * XR Surgery KATY L/T 5 Min Fluoro w Stills (06/09/2024 6:50 AM CDT) Narrative [facility] - 06/09/2024 6:51 AM CDT This exam was marked as non-reportable because it will not be read by a radiologist or a [place] non-radiologist provider. Harvey Dandreguerita Novoa DO IMG DIAGNOSTIC IMAG ING ORDERABLES [facility] * (ABNORMAL) Urine Culture (06/09/2024 12:48 AM CDT) Culture >100,000 CFU/mL Klebsiella pneumoniae(A) FROYLAN 06/11/2024 9:46 PM CDT UU IDD LABORATORY Culture >100,000 CFU/mL Klebsiella pneumoniae(A) 06/11/2024 9:46 PM CDT UU IDD LABORATORY Urine MID-STREAM URINE SPECIMEN / Unknown Non-blood Collection / Unknown 06/09/2024 12:48 AM CDT 06/09/2024 1:07 AM CDT Narrative Organism Antibiotic Method Susceptibility Klebsiella pneumoniae Ampicillin FROYLAN Resistant Comment:Intrinsicall y Resistant Klebsiella pneumoniae Ampicillin/ Sulbactam FROYLAN 8 ug/mL: Susceptible Klebsiella pneumoniae Piperacillin/Tazobactam FROYLAN <=4 ug/mL: Susceptible Klebsiella pneumoniae Cefazolin FROYLAN <=4 ug/mL: Susceptible Comment:Cefazolin AR C breakpoints are for the treatment of uncomplicated urinary tract infections. For the treatment of systemic infections, please contact the laboratory for additional testing. Klebsiella pneumoniae Cefoxitin FROYLAN <=4 ug/mL: Susceptible Klebsiella pneumoniae Ceftazidime FROYLAN <=1 ug/mL: Susceptible Klebsiella pneumoniae Ceftriaxone FROYLAN <=1 ug/mL: Susceptible Klebsiella pneumoniae Cefepime FROYLAN <=1 ug/mL: Susceptible Klebsiella pneumoniae Gentamicin FROYLAN <=1 ug/mL: Susceptible Klebsiella pneumoniae Tobramycin FROYLAN <=1 ug/mL: Susceptible Klebsiella pneumoniae Ciprofloxacin FROYLAN <=0.25 ug/mL: Susceptible Klebsiella pneumoniae Levofloxacin FROYLAN <=0.12 ug/mL: Susceptible Klebsiella pneumoniae Nitrofurantoin FROYLAN 64 ug/mL: Intermediate Klebsiella pneumoniae Trimethoprim/Sulfa methoxazol e FROYLAN <=1/19 ug/mL: Susceptible Klebsiella pneumoniae Ampicillin FROYLAN Resistant Comment:Intrinsicall y Resistant Klebsiella pneumoniae Ampicillin/ Sulbactam FROYLAN 8 ug/mL: Susceptible Klebsiella pneumoniae Piperacillin/Tazobactam FROYLAN <=4 ug/mL: Susceptible Klebsiella pneumoniae Cefazolin FROYLAN <=4 ug/mL: Susceptible Comment:Cefazolin AR C breakpoints are for the treatment of uncomplicated urinary tract infections. For the treatment of systemic infections, please contact the laboratory for additional testing. Klebsiella pneumoniae Cefoxitin FROYLAN <=4 ug/mL: Susceptible Klebsiella pneumoniae Ceftazidime FROYLAN <=1 ug/mL: Susceptible Klebsiella pneumoniae Ceftriaxone FROYLAN <=1 ug/mL: Susceptible Klebsiella pneumoniae Cefepime FROYLAN <=1 ug/mL: Susceptible Klebsiella pneumoniae Gentamicin FROYLAN <=1 ug/mL: Susceptible Klebsiella pneumoniae Tobramycin FROYLAN <=1 ug/mL: Susceptible Klebsiella pneumoniae Ciprofloxacin FROYLAN <=0.25 ug/mL: Susceptible Klebsiella pneumoniae Levofloxacin FROYLAN <=0.12 ug/mL: Susceptible Klebsiella pneumoniae Nitrofurantoin FROYLAN 64 ug/mL: Intermediate Klebsiella pneumoniae Trimethoprim/Sulfa methoxazol e FROYLAN <=1/19 ug/mL: Susceptible Teofilo Cody MD LAB - MICRO GENERAL ORDERABLES [facility] IDD LABORATORY [facility] Inf. Diseases Diag. Lab [address], [address] [place] [id number] * (ABNORMAL) UA with Microscopic reflex to Culture (06/09/2024 12:48 AM CDT) Color Urine Yellow Colorless, Straw, Light Yellow, Yellow 06/09/2024 1:07 AM CDT LABORATORY Appearance Urine Slightly Cloudy(A) Clear 06/09/2024 1:07 AM CDT LABORATORY Glucose Urine Negative Negative mg/dL 06/09/2024 1:07 AM CDT LABORATORY Bilirubin Urine Negative Negative 1:07 AM CDT LABORATORY Ketones Urine Negative Negative mg/dL 06/09/2024 1:07 AM CDT LABORATORY Specific [place] Urine 1.018 1.003 - 1.035 06/09/2024 1:07 AM CDT LABORATORY Blood Urine Moderate(A) Negative 06/09/2024 1:07 AM CDT LABORATORY pH Urine 5.5 5.0 - 7.0 06/09/2024 1:07 AM CDT LABORATORY Protein Albumin Urine 100(A) Negative mg/dL 06/09/2024 1:07 AM CDT RH LABORATORY Urobilinogen Urine Normal Normal, 2.0 mg/dL 06/09/2024 1:07 AM CDT RH LABORATORY Nitrite Urine Positive(A) Negative 06/09/2024 1:07 AM CDT RH LABORATORY Leukocyte Esterase Urine Large(A) Negative 06/09/2024 1:07 AM CDT RH LABORATORY Bacteria Urine Moderate(A) None Seen /HPF 06/09/2024 1:07 AM CDT RH LABORATORY WBC Clumps Urine Present(A) None Seen /HPF 06/09/2024 1:07 AM CDT RH LABORATORY Mucus Urine Present(A) None Seen /LPF 06/09/2024 1:07 AM CDT LABORATORY RBC Urine 14(H) <=2 /HPF 06/09/2024 1:07 AM CDT RH LABORATORY WBC Urine >182(H) <=5 /HPF 06/09/2024 1:07 AM CDT LABORATORY Squamous Epithelials Urine <1 <=1 /HPF 06/09/2024 1:07 AM CDT LABORATORY Urine MID-STREAM URINE SPECIMEN / Unknown Non-blood Collection / Unknown 06/09/2024 12:48 AM CDT 06/09/2024 12:52 AM CDT Narrative LABORATORY - 06/09/2024 1:07 AM CDT Urine Culture ordered based on laboratory criteria Teofilo Cody MD LAB - URINE ORDERABL ES LABORATORY [facility] [address] Lab (1st floor, no room number) [place] [address], [facility] * XR Chest 2 Views (06/08/2024 11:47 PM CDT) Anatomical Region Laterality Modality Chest Digital Radiogra phy 06/08/2024 11:4 7 PM CDT Impressions 06/09/2024 12:00 AM CDT IMPRESSION: Heart size is normal. Lungs are clear bilaterally. Mediastinum and visualized bony structures are unremarkable. Narrative 06/09/2024 12:00 AM CDT EXAM: XR CHEST 2 VIEWS LOCATION: [facility] DATE: 06/08/2024 INDICATION: sepsis COMPARISON: 12/09/2023 Procedure Note Lon Pickard MD - 06/09/2024 EXAM: XR CHEST 2 VIEWS LOCATION: [facility] DATE: 06/08/2024 INDICATION: sepsis COMPARISON: 12/09/2023 [...] EXAM: CT ABDOMEN PELVIS W/O CONTRAST LOCATION: [facility] DATE: 06/08/2024 INDICATION: V/d, renal failure, [...] EXAM: CT ABDOMEN PELVIS W/O CONTRAST LOCATION: [facility] DATE: 06/08/2024 INDICATION: V/d, renal failure, [...] Cody MD IMG CT ORDERABLES * (ABNORMAL) iStat Gases (lactate) venous, POCT (06/08/2024 10:25 PM CDT) Lactic Acid POCT 1.0 <=2.0 mmol/L 06/08/2024 10:30 PM CDT RH LABORATORY POC Bicarbonate Venous POCT 20(L) 21 - 28 mmol/L 06/08/2024 10:30 PM CDT RH LABORATORY POC O2 Sat, Venous POCT 80(H) 70 - 75 % 06/08/2024 10:30 PM CDT RH LABORATORY POC pCO2 Venous POCT 31(L) 40 - 50 mm Hg 06/08/2024 10:30 PM CDT RH LABORATORY POC pH Venous POCT 7.41 7.32 - 7.43 06/08/2024 10:30 PM CDT RH LABORATORY POC pO2 Venous POCT 43 25 - 47 mm Hg 06/08/2024 10:30 PM CDT RH LABORATORY POC Blood, venous BLOOD SPECIMEN / Unknown 06/08/2024 10:25 PM CDT 06/08/2024 10:30 PM CDT Teofilo Cody MD LAB - [facility] POCT RH LABORATORY [facility] Lab [address] Lab (1st floor, no room number) [place] [address], [facility] * (ABNORMAL) Verigene GN Panel (06/08/2024 10:24 [...] - MICRO GENERAL ORDERABLES [facility] IDD LABORATORY [facility] Inf. Diseases Diag. Lab [address], [address] [place] [address], [facility] * (ABNORMAL) Blood Culture Peripheral Blood (06/08/2024 [...] - MICRO GENERAL ORDERABLES [facility] IDD LABORATORY [facility] Inf. Diseases Diag. Lab [address], [address] [place] [address], [facility] * CK total (06/08/2024 8:38 PM CDT) CK 194 39 - 308 U/L 06/08/2024 10:15 PM CDT LABORATORY Blood BLOOD SPECIMEN / Unknown Venipuncture / Unknown 06/08/2024 8:38 PM CDT 06/08/2024 8:50 PM CDT Teofilo Cody MD LAB - BLOOD ORDERABL ES LABORATORY [facility] [address] [facility] Lab (1st floor, no room number) [place] [address], [facility] * (ABNORMAL) Procalcitonin (06/08/2024 8:38 PM CDT) Procalcitonin 18.09(HH) <0.50 ng/mL 06/08/2024 10:28 PM [...] See Procalcitonin Guidance document for more details. https://formweb.com/files/[email or web address] Factors that may affect PCT levels (not [...] - BLOOD ORDERABL ES Performing Organization Address [facility] Co de Phone Number [facility] Lab [address] Lab (1st floor, no room number) [address] * (ABNORMAL) Magnesium (06/08/2024 8:38 PM CDT) Pathologist [facility] Magnesium 1.5(L) 1.7 - 2.3 mg/dL 06/08/2024 10:15 PM CDT LABORATORY Blood BLOOD SPECIMEN / Unknown Venipuncture / Unknown 06/08/2024 8:38 PM CDT 06/08/2024 8:50 PM CDT Teofilo Cody MD LAB - BLOOD ORDERABL ES Performing Organization Address [facility] Co de Phone Number [facility] Lab [address] Lab (1st floor, no room number) [place] [phone] [place] [address] * (ABNORMAL) CBC with platelets and differential (06/08/2024 8:38 PM CDT) WBC Count 23.8(H) 4.0 - 11.0 10e3/uL 06/08/2024 9:06 PM CDT RH LABORATORY RBC Count 4.23(L) 4.40 - 5.90 10e6/uL 06/08/2024 9:06 PM CDT RH LABORATORY Hemoglobin 12.7(L) 13.3 - 17.7 g/dL 06/08/2024 9:06 PM CDT RH LABORATORY Hematocrit 37.8(L) 40.0 - 53.0 % 06/08/2024 9:06 PM CDT RH LABORATORY MCV 89 78 - 100 fL 06/08/2024 9:06 PM CDT RH LABORATORY MCH 30.0 26.5 - 33.0 pg 06/08/2024 9:06 PM CDT RH LABORATORY MCHC 33.6 31.5 - 36.5 g/dL 06/08/2024 9:06 PM CDT RH LABORATORY RDW 13.3 10.0 - 15.0 % 06/08/2024 9:06 PM CDT RH LABORATORY Platelet Count 145(L) 150 - 450 10e3/uL 06/08/2024 9:06 PM CDT RH LABORATORY % Neutrophils 89 % 06/08/2024 9:06 PM CDT RH LABORATORY % Lymphocytes 3 % 06/08/2024 9:06 PM CDT RH LABORATORY % Monocytes 5 % 06/08/2024 9:06 PM CDT RH LABORATORY % Eosinophils 1 % 06/08/2024 9:06 PM CDT RH LABORATORY % Basophils 0 % 06/08/2024 9:06 PM CDT RH LABORATORY % Immature Granulocytes 2 % 06/08/2024 9:06 PM CDT RH LABORATORY NRBCs per 100 WBC 0 <1 /100 024 9:06 PM CDT RH LABORATORY Absolute Neutrophils 21.3(H) 1.6 - 8.3 10e3/uL 06/08/2024 9:06 PM CDT RH LABORATORY Absolute Lymphocytes 0.8 0.8 - 5.3 10e3/uL 06/08/2024 9:06 PM CDT RH LABORATORY Absolute Monocytes 1.2 0.0 - 1.3 10e3/uL 06/08/2024 9:06 PM CDT RH LABORATORY Absolute Eosinophils 0.2 0.0 - 0.7 10e3/uL 06/08/2024 9:06 PM CDT RH LABORATORY Absolute Basophils 0.1 0.0 - 0.2 10e3/uL 06/08/2024 9:06 PM CDT RH LABORATORY Absolute Immature Granulocytes 0.4 <=0.4 10e3/uL 06/08/2024 9:06 PM CDT RH LABORATORY Absolute NRBCs 0.0 10e3/uL 06/08/2024 9:06 PM CDT RH LABORATORY Blood BLOOD SPECIMEN / Unknown Venipuncture / Unknown 06/08/2024 8:38 PM CDT 06/08/2024 8:50 PM CDT Akash Ramirez MD LAB - BLOOD ORDERA BLES LABORATORY [facility] [address] [facility] Lab (1st floor, no room number) [place] [address], [facility] * (ABNORMAL) Comprehensive metabolic panel (06/08/2024 8:38 PM CDT) Sodium 137 135 - 145 mmol/L 06/08/2024 9:13 PM CDT LABORATORY Potassium 4.2 3.4 - 5.3 mmol/L 06/08/2024 9:13 PM CDT LABORATORY Carbon Dioxide (CO2) 17(L) 22 - 29 mmol/L 06/08/2024 9:13 PM CDT LABORATORY Anion Gap 17(H) 7 - 15 mmol/L 06/08/2024 9:13 PM CDT LABORATORY Urea Nitrogen 39.3(H) 8.0 - 23.0 mg/dL 06/08/2024 9:13 PM CDT LABORATORY Creatinine 2.83(H) 0.67 - 1.17 mg/dL 06/08/2024 9:13 PM CDT LABORATORY GFR Estimate 24(L) >60 mL/min/1.7 3m2 06/08/2024 9:13 PM CDT LABORATORY Comment:eGFR calculated usin 2020 CKD-EPI equation. Calcium 9.2 8.8 - 10.4 mg/dL 06/08/2024 9:13 PM CDT LABORATORY Comment:Reference intervals for this test were updated on 05/04/2024 to reflect our healthy population more accurately. There may be differences in the flagging of prior results with similar values performed with this method. Those prior results can be interpreted in the context of the updated reference intervals. Chloride 103 98 - 107 mmol/L 06/08/2024 9:13 PM CDT RH LABORATORY Glucose 115(H) 70 - 99 mg/dL 06/08/2024 9:13 PM CDT RH LABORATORY Alkaline Phosphatase 140 40 - 150 U/L 06/08/2024 9:13 PM CDT RH LABORATORY AST 18 0 - 45 U/L 06/08/2024 9:13 PM CDT RH LABORATORY ALT 39 0 - 70 U/L 06/08/2024 9:13 PM CDT RH LABORATORY Protein Total 6.7 6.4 - 8.3 g/dL 06/08/2024 9:13 PM CDT RH LABORATORY Albumin 3.6 3.5 - 5.2 g/dL 06/08/2024 9:13 PM CDT RH LABORATORY Bilirubin Total 0.6 <=1.2 mg/dL 06/08/2024 9:13 PM CDT RH LABORATORY Blood BLOOD SPECIMEN / Unknown Venipuncture / Unknown 06/08/2024 8:38 PM CDT 06/08/2024 8:50 PM CDT Akash Ramirez MD LAB - BLOOD ORDERA BLES LABORATORY [facility] [address] Lab (1st floor, no room number) [place] [address], [facility] * EKG 12 lead (06/08/2024 8:08 PM CDT) Systolic Blood Pressure mmHg RADIOLOGY RESULTS Diastolic Blood Pressure mmHg RADIOLOGY RESULTS Ventricular Rate 121 BPM RAD IOLOGY RESULTS Atrial Rate 121 BPM RADIOLOG Y RESULTS AZ Interval 140 ms RADIOLOG Y RESULTS QRS Duration 88 ms RADIOLO GY RESULTS QT 310 ms RADIOLOGY RESULTS QTc 440 ms RADIOLOGY RESULTS P [place] 56 degrees RADIOLOGY RESULTS R AXIS 62 degrees RADIOLOGY RESULTS T [place] 60 degrees RADIOLOGY RESULTS Interpretation ECG Sinus tachycardia Otherwise normal ECG When compared with ECG of 25-Dec-2023 06:38, Vent. rate has increased by ??54 bpm Unconfirmed report - interpretation of this ECG is computer generated - see medical record for final interpretation Confirmed by - EMERGENCY ROOM, PHYSICIAN ([id number]), department editor SAMUEL TESFAYE ([id number]) on 06/09/2024 6:49:19 AM RADIOLOGY RESULTS 06/08/2024 8:08 PM CDT 06/09/2024 6:49 AM CDT Akash Ramirez MD ECG ORDERABLES RADIOLOGY RESULTS * (ABNORMAL) Glucose by meter (06/08/2024 8:01 PM CDT) [facility] Signature GLUCOSE BY METER POCT 109(H) 70 - 99 mg/dL 06/08/2024 8:08 PM CDT [facility] POC Blood, Capillary BLOOD SPECIMEN / Unknown 06/08/2024 8:01 PM CDT 06/08/2024 8:08 PM CDT Provider Unknown LAB - [facility] [address] Lab (1st floor, no room number) [place] [id number] documented in this encounter Visit Diagnoses Diagnosis Sepsis due to urinary tract infection (H) Unspecified septicemia Left ureteral stone SILVANO (acute kidney injury) (H24) Acute kidney failure, unspecified Hypomagnesemia Disorders of magnesium metabolism UTI (urinary tract infection) Urinary tract infection, site not specified Hypomagnesemia Disorders of magnesium metabolism SILVANO (acute kidney injury) (H24) Acute kidney failure, unspecified Sepsis due to urinary tract infection (H) Unspecified septicemia Left ureteral stone documented in this encounter Administered Medications Inactive Administered Medications - up to 3 most recent administrations Medication Order MAR Action Action Date Dose Rate Site acetaminophen (TYLENOL) Suppository 650 mg 650 mg, Rectal, EVERY 4 HOURS PRN, mild pain, other, and adjunct with moderate or severe pain or per patient request, Starting on Fri06/09/24 at 0122, Alternate with ibuprofen if ordered. Maximum acetaminophen dose from all sources = 75 mg/kg/day not to exceed 4 grams/day. acetaminophen (TYLENOL) tablet 650 mg 650 mg, Oral, EVERY 4 HOURS PRN, mild pain, other, and adjunct with moderate or severe pain or per patient request, Starting on Fri06/09/24 at 0122, Alternate with ibuprofen if ordered. Maximum acetaminophen dose from all sources = 75 mg/kg/day not to exceed 4 grams/day. $Given 06/11/2024 6:31 PM CDT 650 mg $Given 06/09/2024 2:26 AM CDT 650 mg atorvastatin (LIPITOR) tablet 80 mg 80 mg, Oral, EVERY EVENING, First dose on Fri06/09/24 at 2000 $Given 06/11/2024 8:14 PM CDT 80 mg $Given 06/10/2024 8:12 PM CDT 80 mg $Given 06/09/2024 8:12 PM CDT 80 mg cefTRIAXone (ROCEPHIN) 1 g vial to attach to NS 100 mL bag for ADULTS or NS 50 mL bag for PEDS STAT, 1 g, Intravenous, ONCE, On Fri06/09/24 at 0115, For 1 dose, Indications: Sepsis, Urinary Tract Infection $New Bag 06/09/2024 2:12 AM CDT 1 g cefTRIAXone (ROCEPHIN) 1 g vial to attach to NS 100 mL bag for ADULTS or NS 50 mL bag for PEDS STAT, 1 g, Intravenous, ONCE, On Fri06/09/24 at 0900, For 1 dose, Indications: Sepsis $New Bag 06/09/2024 9:16 AM CDT 1 g cefTRIAXone (ROCEPHIN) 2 g vial to attach to NS 100 ml bag for ADULTS or NS 50 ml bag for PEDS Routine, 2 g, Intravenous, EVERY 24 HOURS, First dose on Fri06/10/24 at 0600, NOTE: LR IS NOT COMPATIBLE WITH CEFTRIAXONE. Stop LR & flush with NS before and after ceftriaxone dose. , Indications: Urinary Tract Infection $New Bag 06/12/2024 6:01 AM CDT 2 g $New Bag 06/11/2024 5:22 AM CDT 2 g $New Bag 06/10/2024 6:03 AM CDT 2 g disulfiram (ANTABUSE) tablet 250 mg 250 mg, Oral, DAILY, First dose on Fri06/09/24 at 1330 $Given 06/12/2024 8:30 AM CDT 250 mg $Given 06/11/2024 8:02 AM CDT 250 mg $Given 06/10/2024 8:36 AM CDT 250 mg donepezil (ARICEPT) tablet 10 mg 10 mg, Oral, AT BEDTIME, First dose on Fri06/09/24 at 2200 $Given 06/11/2024 10:16 PM CDT 10 mg $Given 06/10/2024 9:39 PM CDT 10 mg $Given 06/09/2024 9:40 PM CDT 10 mg escitalopram (LEXAPRO) tablet 60 mg 60 mg, Oral, EVERY EVENING, First dose on Fri06/09/24 at 2000 $Given 06/11/2024 8:14 PM CDT 60 mg $Given 06/10/2024 8:12 PM CDT 60 mg $Given 06/09/2024 8:11 PM CDT 60 mg lactated ringers infusion at 150 mL/hr, Intravenous, CONTINUOUS, NOTE: LR IS NOT COMPATIBLE WITH CEFTRIAXONE. Stop LR & flush with NS before and after ceftriaxone dose. , Starting on Fri06/09/24 at 0125, Until Fri06/09/24 at 1207 $New Bag 06/09/2024 8:49 AM CDT 150 mL/hr $New Bag 06/09/2024 4:02 AM CDT 150 mL/hr magnesium sulfate 2 g in 50 mL sterile water intermittent infusion 2 g, Intravenous, Administer over 30 Minutes, at 100 mL/hr, ONCE, On Fri06/09/24 at 0120, For 1 dose $New Bag 06/09/2024 3:29 AM CDT 2 g 100 mL/hr magnesium sulfate 2 g in 50 mL sterile water intermittent infusion 2 g, Intravenous, Administer over 60 Minutes, at 50 mL/hr, ONCE, On Fri06/09/24 at 0930, For 1 dose, Magnesium level 1.1-1.5 mg/dL. Administer 2 gm magnesium IV x 1 doses and recheck magnesium level 2-4 hours AFTER the last dose is infused. Ordered from the Magnesium replacement order set. $New Bag 06/09/2024 10:32 AM CDT 2 g 50 mL/hr magnesium sulfate 4 g in 100 mL sterile water intermittent infusion 4 g, Intravenous, Administer over 120 Minutes, at 50 mL/hr, ONCE, On Fri06/12/24 at 1000, For 1 dose, Magnesium level 1.1-1.5 mg/dL. Administer 4 gm magnesium IV x 1 dose and recheck magnesium level 2-4 hours AFTER the last dose is infused. Ordered from the Magnesium replacement order set. $New Bag 06/12/2024 10:37 AM CDT 4 g 50 mL/hr midodrine (PROAMATINE) tablet 2.5 mg 2.5 mg, Oral, 2 TIMES DAILY, First dose on Fri06/09/24 at 2000, This medication should NOT be taken after evening meal or less than 4 hours before bedtime. $Given 06/12/2024 8:30 AM CDT 2.5 mg $Given 06/11/2024 8:14 PM CDT 2.5 mg $Given 06/11/2024 8:02 AM CDT 2.5 mg naloxone (NARCAN) injection 0.2 mg 0.2 mg, Intravenous, EVERY 2 MIN PRN, opioid reversal, Starting on Fri06/09/24 at 0816, Administer intravenous route when available and notify provider when administered. For unintended sedation or respiratory depression if all of the below criteria are met: ~ respiratory rate LESS than or EQUAL to 8. ~SaO2 less than 92% and or/end-tidal CO2 is greater than 50. ~ the patient is receiving an opioid, has unintended sedations assessed as RASS (-3), and is currently not on mechanical ventilation. RASS scale moderate (-3) is movement or eye opening to voice but no eye contact. Patient Monitoring Once the patient has demonstrated a response to the naloxone, continue to monitor respiratory rate, depth, oxygen saturation and end-tidal CO2 (if available) every 15 minutes x 2, then every 30 minutes x 2, then every 1 hour x 1 after each naloxone dose. Consider transfer to ICU if patient respiratory parameters have not improved after 4 naloxone doses. naloxone (NARCAN) injection 0.2 mg 0.2 mg, Intramuscular, EVERY 2 MIN PRN, opioid reversal, Starting on Fri06/09/24 at 0816, Administer intramuscular if an intravenous route is not available and notify provider when administered. For unintended sedation or respiratory depression if all of the below criteria are met: ~ respiratory rate LESS than or EQUAL to 8. ~SaO2 less than 92% and or/end-tidal CO2 is greater than 50. ~ the patient is receiving an opioid, has unintended sedations assessed as RASS (-3), and is currently not on mechanical ventilation. RASS scale moderate (-3) is movement or eye opening to voice but no eye contact. Patient Monitoring Once the patient has demonstrated a response to the naloxone, continue to monitor respiratory rate, depth, oxygen saturation and end-tidal CO2 (if available) every 15 minutes x 2, then every 30 minutes x 2, then every 1 hour x 1 after each naloxone dose. Consider transfer to ICU if patient respiratory parameters have not improved after 4 naloxone doses. naloxone (NARCAN) injection 0.4 mg 0.4 mg, Intravenous, EVERY 2 MIN PRN, opioid reversal, Starting on Fri06/09/24 at 0816, Administer intravenous route when available and notify provider when administered. For unintended sedation or respiratory depression if all of the below criteria are met: ~ respiratory rate LESS than or EQUAL to 8. ~ SaO2 less than 92% and or/end-tidal CO2 is greater than 50. ~ the patient is receiving an opioid, has unintended sedation assessed as RASS (-4) or (-5) and patient is currently not on mechanical ventilation. RASS scale (-4) is deep sedation with no response to voice but movement or eye opening to physical stimulation. RASS scale (-5) is unarousable. Patient Monitoring Once the patient has demonstrated a response to the naloxone, continue to monitor respiratory rate, depth, oxygen saturation and end-tidal CO2 (if available) every 15 minutes x 2, then every 30 minutes x 2, then every 1 hour x 1 after each naloxone dose. Consider transfer to ICU if patient respiratory parameters have not improved after 4 naloxone doses. naloxone (NARCAN) injection 0.4 mg 0.4 mg, Intramuscular, EVERY 2 MIN PRN, opioid reversal, Starting on Fri06/09/24 at 0816, Administer intramuscular if an intravenous route is not available and notify provider when administered. For unintended sedation or respiratory depression if all of the below criteria are met: ~ respiratory rate LESS than or EQUAL to 8. ~ SaO2 less than 92% and or/end-tidal CO2 is greater than 50. ~ the patient is receiving an opioid, has unintended sedation assessed as RASS (-4) or (-5) and patient is currently not on mechanical ventilation. RASS scale (-4) is deep sedation with no response to voice but movement or eye opening to physical stimulation. RASS scale (-5) is unarousable. Patient Monitoring Once the patient has demonstrated a response to the naloxone, continue to monitor respiratory rate, depth, oxygen saturation and end-tidal CO2 (if available) every 15 minutes x 2, then every 30 minutes x 2, then every 1 hour x 1 after each naloxone dose. Consider transfer to ICU if patient respiratory parameters have not improved after 4 naloxone doses. ondansetron (ZOFRAN ODT) ODT tab 4 mg 4 mg, Oral, EVERY 6 HOURS PRN, nausea, vomiting, Starting on Fri06/09/24 at 0122, This is Step 1 of nausea and [...] vomiting, Administer over 2-5 Minutes, Starting on Fri06/09/24 at 0122, Give IF patient unable to tolerate oral medication. This is Step 1 of nausea and vomiting management. If nausea not resolved in 15 minutes, go to Step 2 prochlorperazine (COMPAZINE). senna-docusate (SENOKOT-S/PERICOLACE) 8.6-50 MG per tablet 1 tablet 1 tablet, Oral, 2 TIMES DAILY PRN, constipation, Starting on Fri06/09/24 at 0122, If no bowel movement in 24 hours, [...] 2 TIMES DAILY PRN, constipation, Starting on Fri06/09/24 at 0122, IF more than 1 constipation PRN medication [...] Intracatheter, EVERY 8 HOURS, First dose on Fri06/09/24 at 0125, to lock peripheral IV dormant line $Given 06/12/2024 8:30 AM CDT 3 mLs $Given 06/11/2024 6:53 PM CDT 3 mLs $Given 06/09/2024 3:28 AM CDT 3 mLs sodium chloride 0.9 % infusion at 100 mL/hr, Intravenous, CONTINUOUS, Starting on Fri06/09/24 at 1230, Until Fri06/11/24 at 1321 $New Bag 06/11/2024 8:01 AM CDT 100 mL/hr $New Bag 06/10/2024 9:39 PM CDT 100 mL/hr $New Bag 06/10/2024 2:10 PM CDT 100 mL/hr sodium chloride 0.9% BOLUS 1,000 mL Intravenous, 1,000 mL, ONCE, at 1,000 mL/hr, Administer over 1 Hours, On Fri06/08/24 at 2040, For 1 dose $New Bag 06/08/2024 8:43 PM CDT 1,000 mLs 1000 mL/hr sodium chloride 0.9% BOLUS 1,000 mL Intravenous, 1,000 mL, ONCE, at 1,000 mL/hr, Administer over 1 Hours, On Fri06/08/24 at 2150, For 1 dose $New Bag 06/08/2024 10:31 PM CDT 1,000 mLs 1000 mL/hr sodium chloride 0.9% BOLUS 1,000 mL Intravenous, 1,000 mL, ONCE, at 1,000 mL/hr, Administer over 1 Hours, On Fri06/09/24 at 0035, For 1 dose $New Bag 06/09/2024 2:32 AM CDT 1,000 mLs 1000 mL/hr tamsulosin (FLOMAX) capsule 0.8 mg 0.8 mg, Oral, EVERY EVENING, First dose on Fri06/09/24 at 2000, Administer 30 minutes after the same meal each day. Capsules should be swallowed whole; do not crush chew or open. $Given 06/11/2024 8:14 PM CDT 0.8 mg $Given 06/10/2024 8:12 PM CDT 0.8 mg $Given 06/09/2024 8:12 PM CDT 0.8 mg thiamine (B-1) tablet 100 mg 100 mg, Oral, EVERY EVENING, First dose on Fri06/09/24 at 1999 $Given 06/11/2024 8:14 PM CDT 100 mg $Given 06/10/2024 8:12 PM CDT 100 mg $Given 06/09/2024 8:12 PM CDT 100 mg documented in this encounter Active and Recently Administered Medications Times are shown in CDT. Scheduled Medication Order 06/10/2024 06/11/2024 06/12/2024 aspirin EC tablet 81 mg 81 mg, Oral, EVERY MORNING, First dose on Briana 06/10/24 at 0800, DO NOT CRUSH., On hold since Fri06/09/2024 at 1314 until manually unheld 0800 (Automatically Held) 0800 (Automatically Held) 0800 (Automatically Held)1809 (Unheld by provider - Provider: Orders Generic Provider) aspirin EC tablet 81 mg 81 mg, Oral, EVERY MORNING, First dose on Fri06/13/24 at 0800, DO NOT CRUSH., On hold since [facility] 06/12/2024 at 1449 until manually unheld 1449 (Held by provid er - Provider: Patricia Jefferson PA-C - Reason: Bleeding)1809 (Unheld by provider - Provider: Orders Generic Provider) atorvastatin (LIPITOR) tablet 80 mg 80 mg, Oral, EVERY EVENING, First dose on Fri06/09/24 at 2000 2011 ($Given - Provider: Alayna Lindsay, RN) 2013 ($Given - Provider: Lindsey Good RN) cefTRIAXone (ROCEPHIN) 2 g vial to attach to NS 100 ml bag for ADULTS or NS 50 ml bag for PEDS Routine, 2 g, Intravenous, EVERY 24 HOURS, First dose on Briana 06/10/24 at 0600, NOTE: LR IS NOT COMPATIBLE WITH CEFTRIAXONE. Stop LR & flush with NS before and after ceftriaxone dose. , Indications: Urinary Tract Infection 0603 ($New Bag - Provider: Alayna Lindsay, PILO) 0522 ($New Bag - Provider: Dipesh Gomez, RN) 0601 ($New Bag - Provider: Wilber Mckeon, PILO) disulfiram (ANTABUSE) tablet 250 mg 250 mg, Oral, DAILY, First dose on Fri06/09/24 at 1330 0836 ($Given - Provider: Michi Rocha, PILO) 0802 ($Given - Provider: Lindsey Good, PILO) 0830 ($Given - Provider: Chetna Arita, PILO) donepezil (ARICEPT) tablet 10 mg 10 mg, Oral, AT BEDTIME, First dose on Fri06/09/24 at 2200 2139 ($Given - Provider: Alayna Lindsay, PILO) 2216 ($Given - Provider: Micaela Baptiste RN) escitalopram (LEXAPRO) tablet 60 mg 60 mg, Oral, EVERY EVENING, First dose on Fri06/09/24 at 1999 2011 ($Given - Provider: Alayna Lindsay, PILO) 2013 ($Given - Provider: Lindsey Good RN) magnesium sulfate 4 g in 100 mL sterile water intermittent infusion (COMPLETED) 4 g, Intravenous, Administer over 120 Minutes, at 50 mL/hr, ONCE, On 06/12/24 at 1000, For 1 dose, Magnesium level 1.1-1.5 mg/dL. Administer 4 gm magnesium IV x 1 dose and recheck magnesium level 2-4 hours AFTER the last dose is infused. Ordered from the Magnesium replacement order set. 1037 ($New Bag - Provider: Chetna Arita, PILO) midodrine (PROAMATINE) tablet 2.5 mg 2.5 mg, Oral, 2 TIMES DAILY, First dose on Fri06/09/24 at 1999, This medication should NOT be taken after evening meal or less than 4 hours before bedtime. 0800 (Automatically Held)1006 (Unheld by provider - Provider: Alix Guerrero PA-C)2011 ($Given - Provider: Alayna Lindsay RN) 0802 ($Given - Provider: Lindsey Good RN)2013 ($Given - Provider: Lindsey Good RN) 0830 ($Given - Provider: Chetna Arita, PILO) sodium chloride (PF) 0.9% PF flush 3 mL 3 mL, Intracatheter, EVERY 8 HOURS, First dose on Fri06/09/24 at 0125, to lock peripheral IV dormant line 0046 (Not Given - Provider: Alayna Lindsay RN - Reason: IV Infusing)0832 (Not Given - Provider: Yue Vazquez RN - Reason: IV Infusing)1642 (Not Given - Provider: Lindsey Good RN - Reason: IV Infusing) 0227 (Not Given - Provider: Dipesh Gomez RN - Reason: IV Infusing)0837 (Not Given - Provider: Lindsey Good RN - Reason: IV Infusing)1853 ($Given - Provider: Lindsey Good RN) 0026 (Not Given - Provider: Wilber Mckeon RN - Reason: Patient sleeping)0830 ($Given - Provider: Chetna Arita RN)1600 (Canceled Entry - Provider: Orders Generic Provider - Comment: Automatically canceled at discontinue of medication order) tamsulosin (FLOMAX) capsule 0.8 mg 0.8 mg, Oral, EVERY EVENING, First dose on Fri06/09/24 at 2000, Administer 30 minutes after the same meal each day. Capsules should be swallowed whole; do not crush chew or open. 2011 ($Given - Provider: Alayna Lindsay RN) 2013 ($Given - Provider: Lindsey Good RN) thiamine (B-1) tablet 100 mg 100 mg, Oral, EVERY EVENING, First dose on Fri06/09/24 at 2000 2011 ($Given - Provider: Alayna Lindsay RN) 2013 ($Given - Provider: Lindsey Good RN) Continuous Medication Order 06/10/2024 06/11/2024 06/12/2024 sodium chloride 0.9 % infusion (CANCELED) at 100 mL/hr, Intravenous, CONTINUOUS, Starting on Fri06/09/24 at 1230, Until Fri06/11/24 at 1321 0334 ($New Bag - Provider: lAayna Lindsay RN)1410 ($New Bag - Provider: Yue Vazquez, PILO)2139 ($New Bag - Provider: Alayna Lindsay RN) 0801 ($New Bag - Provider: Lindsey Good RN)1352 (Stopped - Provider: Lindsey Good RN) PRN Medication Order 06/10/2024 06/11/2024 06/12/2024 acetaminophen (TYLENOL) Suppository 650 mg(Linked Group 1) 650 mg, Rectal, EVERY 4 HOURS PRN, mild pain, other, and adjunct with moderate or severe pain or per patient request, Starting on Fri06/09/24 at 0122, Alternate with ibuprofen if ordered. Maximum acetaminophen dose from all sources = 75 mg/kg/day not to exceed 4 grams/day. 183 (See Alternative - Provider: Lindsye Good RN) acetaminophen (TYLENOL) tablet 650 mg(Linked Group 1) 650 mg, Oral, EVERY 4 HOURS PRN, mild pain, other, and adjunct with moderate or severe pain or per patient request, Starting on Fri06/09/24 at 0122, Alternate with ibuprofen if ordered. Maximum acetaminophen dose from all sources = 75 mg/kg/day not to exceed 4 grams/day. 183 ($Given - Provider: Lindsey Good RN) benzocaine-menthol (CHLORASEPTIC) 6-10 MG lozenge 1 lozenge 1 lozenge, Buccal, EVERY 1 HOUR PRN, sore throat, without fever, Starting on Fri06/09/24 at 0122 calcium carbonate (TUMS) chewable tablet 500 mg 500 mg, Oral, 2 TIMES DAILY PRN, heartburn, Starting on Fri06/09/24 at 0122 HYDROmorphone (DILAUDID) injection 0.2 mg 0.2 mg, Intravenous, EVERY 2 HOURS PRN, moderate pain, IF patient cannot take oral opioid OR IF pain not managed with non-pharmacological, non-opioid, or oral opioid interventions if ordered, Starting on Fri06/09/24 at 0122, May use concomitant with non-opioid analgesics. HYDROmorphone (DILAUDID) injection 0.4 mg 0.4 mg, Intravenous, EVERY 2 HOURS PRN, severe pain, IF patient cannot take oral opioid OR IF pain not managed with non-pharmacological, non-opioid, or oral opioid interventions if ordered, Starting on Fri06/09/24 at 0122, May use concomitant with non-opioid analgesics. lidocaine (LMX4) cream Topical, EVERY 1 HOUR PRN, pain, with VAD insertion, Starting on Fri06/09/24 at 0122, Apply at least 30 minutes prior to [...] mild pain with VAD insertion, Starting on Fri06/09/24 at 0122, MAX dose 1 mL subcutaneous OR intradermal along the side of the vein in divided doses as needed for VAD insertion. Do NOT give if patient has a history of allergy to any local anesthetic or any sarthak product. Do NOT use both lidocaine intradermal/subcutaneous injection and the lidocaine cream on the same site. melatonin tablet 3 mg 3 mg, Oral, AT BEDTIME PRN, sleep, Starting on Fri06/09/24 at 0122, Do not give unless at least 6 hours of uninterrupted sleep is expected. If patient has multiple medications ordered PRN sleep/insomnia, offer melatonin first. menthol-zinc oxide (CALMOSEPTINE) 0.44-20.6 % ointment OINT Topical, 4 TIMES DAILY PRN, skin protection, Starting on Fri06/09/24 at 0122, Apply pea-size amount for skin irritation. miconazole (MICATIN) 2 % powder Topical, 2 TIMES DAILY PRN, other, candidiasis/intertrigo, Starting on Fri06/09/24 at 0122, To skin folds naloxone (NARCAN) injection 0.2 mg(Linked Group 2) 0.2 mg, Intravenous, EVERY 2 MIN PRN, opioid reversal, Starting on Fri06/09/24 at 0816, Administer intravenous route when available and notify provider when administered. For unintended sedation or respiratory depression if all of the below criteria are met: ~ respiratory rate LESS than or EQUAL to 8. ~SaO2 less than 92% and or/end-tidal CO2 is greater than 50. ~ the patient is receiving an opioid, has unintended sedations assessed as RASS (-3), and is currently not on mechanical ventilation. RASS scale moderate (-3) is movement or eye opening to voice but no eye contact. Patient Monitoring Once the patient has demonstrated a response to the naloxone, continue to monitor respiratory rate, depth, oxygen saturation and end-tidal CO2 (if available) every 15 minutes x 2, then every 30 minutes x 2, then every 1 hour x 1 after each naloxone dose. Consider transfer to ICU if patient respiratory parameters have not improved after 4 naloxone doses. naloxone (NARCAN) injection 0.2 mg(Linked Group 2) 0.2 mg, Intramuscular, EVERY 2 MIN PRN, opioid reversal, Starting on Fri06/09/24 at 0816, Administer intramuscular if an intravenous route is not available and notify provider when administered. For unintended sedation or respiratory depression if all of the below criteria are met: ~ respiratory rate LESS than or EQUAL to 8. ~SaO2 less than 92% and or/end-tidal CO2 is greater than 50. ~ the patient is receiving an opioid, has unintended sedations assessed as RASS (-3), and is currently not on mechanical ventilation. RASS scale moderate (-3) is movement or eye opening to voice but no eye contact. Patient Monitoring Once the patient has demonstrated a response to the naloxone, continue to monitor respiratory rate, depth, oxygen saturation and end-tidal CO2 (if available) every 15 minutes x 2, then every 30 minutes x 2, then every 1 hour x 1 after each naloxone dose. Consider transfer to ICU if patient respiratory parameters have not improved after 4 naloxone doses. naloxone (NARCAN) injection 0.4 mg(Linked Group 2) 0.4 mg, Intravenous, EVERY 2 MIN PRN, opioid reversal, Starting on Fri06/09/24 at 0816, Administer intravenous route when available and notify provider when administered. For unintended sedation or respiratory depression if all of the below criteria are met: ~ respiratory rate LESS than or EQUAL to 8. ~ SaO2 less than 92% and or/end-tidal CO2 is greater than 50. ~ the patient is receiving an opioid, has unintended sedation assessed as RASS (-4) or (-5) and patient is currently not on mechanical ventilation. RASS scale (-4) is deep sedation with no response to voice but movement or eye opening to physical stimulation. RASS scale (-5) is unarousable. Patient Monitoring Once the patient has demonstrated a response to the naloxone, continue to monitor respiratory rate, depth, oxygen saturation and end-tidal CO2 (if available) every 15 minutes x 2, then every 30 minutes x 2, then every 1 hour x 1 after each naloxone dose. Consider transfer to ICU if patient respiratory parameters have not improved after 4 naloxone doses. naloxone (NARCAN) injection 0.4 mg(Linked Group 2) 0.4 mg, Intramuscular, EVERY 2 MIN PRN, opioid reversal, Starting on Fri06/09/24 at 0816, Administer intramuscular if an intravenous route is not available and notify provider when administered. For unintended sedation or respiratory depression if all of the below criteria are met: ~ respiratory rate LESS than or EQUAL to 8. ~ SaO2 less than 92% and or/end-tidal CO2 is greater than 50. ~ the patient is receiving an opioid, has unintended sedation assessed as RASS (-4) or (-5) and patient is currently not on mechanical ventilation. RASS scale (-4) is deep sedation with no response to voice but movement or eye opening to physical stimulation. RASS scale (-5) is unarousable. Patient Monitoring Once the patient has demonstrated a response to the naloxone, continue to monitor respiratory rate, depth, oxygen saturation and end-tidal CO2 (if available) every 15 minutes x 2, then every 30 minutes x 2, then every 1 hour x 1 after each naloxone dose. Consider transfer to ICU if patient respiratory parameters have not improved after 4 naloxone doses. ondansetron (ZOFRAN ODT) ODT tab 4 mg(Linked Group 3) 4 mg, Oral, EVERY 6 HOURS PRN, nausea, vomiting, Starting on Fri06/09/24 at 0122, This is Step 1 of nausea and [...] required. ondansetron (ZOFRAN) injection 4 mg(Linked Group 3) 4 mg, Intravenous, EVERY 6 HOURS PRN, nausea, vomiting, Administer over 2-5 Minutes, Starting on Fri06/09/24 at 0122, Give IF patient unable to tolerate oral medication. This is Step 1 of nausea and vomiting management. If nausea not resolved in 15 minutes, go to Step 2 prochlorperazine (COMPAZINE). oxyCODONE (ROXICODONE) tablet 5 mg 5 mg, Oral, EVERY 4 HOURS PRN, severe pain, IF pain not managed with non-pharmacological and non-opioid interventions, Starting on Fri06/09/24 at 0122, May use concomitant with non-opioid analgesics. oxyCODONE IR (ROXICODONE) half-tab 2.5 mg 2.5 mg, Oral, EVERY 4 HOURS PRN, moderate pain, IF pain not managed with non-pharmacological and non-opioid interventions, Starting on Fri06/09/24 at 0122, May use concomitant with non-opioid analgesics. polyethylene glycol (MIRALAX) Packet 17 g 17 g, Oral, 2 TIMES DAILY PRN, constipation, Starting on Fri06/09/24 at 0122, IF more than 1 constipation PRN medication [...] bowel prep regimen or bowel clean out. senna-docusate (SENOKOT-S/PERICOLACE) 8.6-50 MG per tablet 1 tablet(Linked Group 4) 1 tablet, Oral, 2 TIMES DAILY PRN, constipation, Starting on Fri06/09/24 at 0122, If no bowel movement in 24 hours, [...] 2 TIMES DAILY PRN, constipation, Starting on Fri06/09/24 at 0122, IF more than 1 constipation PRN medication [...] or to lock dormant line, Starting on Fri06/09/24 at 0122 Linked Groups Order Group 1: acetaminophen (TYLENOL) tablet 650 mgJump to med 650 mg, Oral, EVERY 4 HOURS PRN, mild pain, other, and adjunct with moderate or severe pain or per patient request, Starting on Fri06/09/24 at 0122, Alternate with ibuprofen if ordered. Maximum acetaminophen dose from all sources = 75 mg/kg/day not to exceed 4 grams/day. Or acetaminophen (TYLENOL) Suppository 650 mgJump to med 650 mg, Rectal, EVERY 4 HOURS PRN, mild pain, other, and adjunct with moderate or severe pain or per patient request, Starting on Fri06/09/24 at 0122, Alternate with ibuprofen if ordered. Maximum acetaminophen dose from all sources = 75 mg/kg/day not to exceed 4 grams/day. Group 2: naloxone (NARCAN) injection 0.2 mgJump to med 0.2 mg, Intravenous, EVERY 2 MIN PRN, opioid reversal, Starting on Fri06/09/24 at 0816, Administer intravenous route when available and notify provider when administered. For unintended sedation or respiratory depression if all of the below criteria are met: ~ respiratory rate LESS than or EQUAL to 8. ~SaO2 less than 92% and or/end-tidal CO2 is greater than 50. ~ the patient is receiving an opioid, has unintended sedations assessed as RASS (-3), and is currently not on mechanical ventilation. RASS scale moderate (-3) is movement or eye opening to voice but no eye contact. Patient Monitoring Once the patient has demonstrated a response to the naloxone, continue to monitor respiratory rate, depth, oxygen saturation and end-tidal CO2 (if available) every 15 minutes x 2, then every 30 minutes x 2, then every 1 hour x 1 after each naloxone dose. Consider transfer to ICU if patient respiratory parameters have not improved after 4 naloxone doses. Or naloxone (NARCAN) injection 0.4 mgJump to med 0.4 mg, Intravenous, EVERY 2 MIN PRN, opioid reversal, Starting on Fri06/09/24 at 0816, Administer intravenous route when available and notify provider when administered. For unintended sedation or respiratory depression if all of the below criteria are met: ~ respiratory rate LESS than or EQUAL to 8. ~ SaO2 less than 92% and or/end-tidal CO2 is greater than 50. ~ the patient is receiving an opioid, has unintended sedation assessed as RASS (-4) or (-5) and patient is currently not on mechanical ventilation. RASS scale (-4) is deep sedation with no response to voice but movement or eye opening to physical stimulation. RASS scale (-5) is unarousable. Patient Monitoring Once the patient has demonstrated a response to the naloxone, continue to monitor respiratory rate, depth, oxygen saturation and end-tidal CO2 (if available) every 15 minutes x 2, then every 30 minutes x 2, then every 1 hour x 1 after each naloxone dose. Consider transfer to ICU if patient respiratory parameters have not improved after 4 naloxone doses. Or naloxone (NARCAN) injection 0.2 mgJump to med 0.2 mg, Intramuscular, EVERY 2 MIN PRN, opioid reversal, Starting on Fri06/09/24 at 0816, Administer intramuscular if an intravenous route is not available and notify provider when administered. For unintended sedation or respiratory depression if all of the below criteria are met: ~ respiratory rate LESS than or EQUAL to 8. ~SaO2 less than 92% and or/end-tidal CO2 is greater than 50. ~ the patient is receiving an opioid, has unintended sedations assessed as RASS (-3), and is currently not on mechanical ventilation. RASS scale moderate (-3) is movement or eye opening to voice but no eye contact. Patient Monitoring Once the patient has demonstrated a response to the naloxone, continue to monitor respiratory rate, depth, oxygen saturation and end-tidal CO2 (if available) every 15 minutes x 2, then every 30 minutes x 2, then every 1 hour x 1 after each naloxone dose. Consider transfer to ICU if patient respiratory parameters have not improved after 4 naloxone doses. Or naloxone (NARCAN) injection 0.4 mgJump to med 0.4 mg, Intramuscular, EVERY 2 MIN PRN, opioid reversal, Starting on Fri06/09/24 at 0816, Administer intramuscular if an intravenous route is not available and notify provider when administered. For unintended sedation or respiratory depression if all of the below criteria are met: ~ respiratory rate LESS than or EQUAL to 8. ~ SaO2 less than 92% and or/end-tidal CO2 is greater than 50. ~ the patient is receiving an opioid, has unintended sedation assessed as RASS (-4) or (-5) and patient is currently not on mechanical ventilation. RASS scale (-4) is deep sedation with no response to voice but movement or eye opening to physical stimulation. RASS scale (-5) is unarousable. Patient Monitoring Once the patient has demonstrated a response to the naloxone, continue to monitor respiratory rate, depth, oxygen saturation and end-tidal CO2 (if available) every 15 minutes x 2, then every 30 minutes x 2, then every 1 hour x 1 after each naloxone dose. Consider transfer to ICU if patient respiratory parameters have not improved after 4 naloxone doses. Group 3: ondansetron (ZOFRAN ODT) ODT tab 4 mgJump to med 4 mg, Oral, EVERY 6 HOURS PRN, nausea, vomiting, Starting on Fri06/09/24 at 0122, This is Step 1 of nausea and [...] vomiting, Administer over 2-5 Minutes, Starting on Fri06/09/24 at 0122, Give IF patient unable to tolerate oral medication. This is Step 1 of nausea and vomiting management. If nausea not resolved in 15 minutes, go to Step 2 prochlorperazine (COMPAZINE). Group 4: senna-docusate (SENOKOT-S/PERICOLACE) 8.6-50 MG per tablet 1 tabletJump to med 1 tablet, Oral, 2 TIMES DAILY PRN, constipation, Starting on Fri06/09/24 at 0122, If no bowel movement in 24 hours, [...] 2 TIMES DAILY PRN, constipation, Starting on Fri06/09/24 at 0122, IF more than 1 constipation PRN medication [...] Date Last Indicated Resolved Time Rule Out C-difficile 06/08/2024 06/10/2024 024 11:50 AM CDT Assessment Noted Time PHQ-9 Depression Total Score: 10 022 4:15 PM CDT documented as of this encounter Care Teams Senior Drupal Developer Relationship Specialty Start Date End Date Nathalie Tate MD [address] [place] [address] PCP - General Family Medicine 12/09/23 Nathalie Tate MD [address] [place] [address] Assigned PCP 06/28/23 IpAkash MD [address] [place] [id number] Cardiovascular Disease 03/16/24 IpAkash MD [address] [place] [id number] Assigned Heart and Vascular Provider 04/11/24 documented as of this encounter
--- OUTSIDE RECORDS SUMMARY | 2024-06-16 04:53 | XMS_ITS | Encounter Summary ---
Author Organization [facility] Address [address] [facility] [place] [address] Care Team Providers Care Tar Boiler Name Role Phone Nathalie Tate MD Unavailable [phone] Nathalie Tate MD Primary Care Provider [phone] Akash Fitzgerald MD Unavailable [phone] Reason for Referral * Consultation (Routine: Next available opening) - Pending Review Specialty Diagnoses / Procedures Referred By Contac t Referred To Contact Cardiovascular Disease Diagnoses Labile blood pressure Other specified hypotension Akash Fitzgerald MD [address] [facility] [address] [place] [address] Referral ID Status Reason Start Date Expiration Date V isits Requested Visits Authorized [id number] Pending Review 04/02/2024 04/02/2025 1 1 Question Answer Follow-up with: Self Scheduling Instructions: [facility] will call you to coordinate your care as prescribed by your provider. If you have concerns about scheduling, please call [phone]. Comments [facility] will call you to coordinate your care as prescribed by your provider. If you have concerns about scheduling, please call [phone]. Reason for Visit * Reason Comments New Patient * CV Cardio consult (Routine) - Pending Review Specialty Diagnoses / Procedures Referred By Contac t Referred To Contact Cardiovascular Disease Diagnoses Labile blood pressure Other specified hypotension Nathalie Tate MD [address] [place] [address] Referral ID Status Reason Start Date Expiration Date V isits Requested Visits Authorized [id number] Pending Review 03/12/2024 03/12/2025 1 1 Encounter Details Date Type Department Care Team (Late st Contact Info) Description 04/02/2024 3:15 PM CDT Office Visit [facility] [address] [facility] [address] [place] [phone] Nathalie Tate MD [address] [place] [address] Akash Fitzgerald MD [address] [place], [place] [id number] Labile blood pressure; Other specified hypotension Social History Tobacco Use Types Packs/Day Years [...] Sign Reading Time Taken Comments Blood Pressure 124/78 04/02/2024 3:05 PM CDT Pulse 87 04/02/2024 3:05 PM CDT Temperature - - Respiratory Rate - - Oxygen Saturation 97% 04/02/2024 3:05 PM CDT Inhaled Oxygen Concentration - - Weight 70.4 kg (155 lb 3.2 oz) 04/02/2024 3:05 P M CDT Height 177.8 cm (5' 10) 04/02/2024 3:05 PM CDT Body Mass Index 22.27 04/02/2024 3:05 PM CDT documented in this encounter Progress Notes * Amilcar, Akash Escobar MD - 04/02/2024 3:15 PM CDT HPI and Plan: It is my pleasure to see this very pleasant 68-year-old gentleman who is accompanied by his . He is here for assessment of labile hypertension. Excellent medical notes are reviewed. This is a gentleman with previous history of alcohol abuse though he has been dry for 3 years. He is not diabetic and has no history of hypertension. He does notabuse alcohol or illicit drugs. Liver he does give a history of CVAs and TIAs though a recent MRI of his brain did not show evidence of infarction. The reason for him having this was because he was admitted in February of this year to [facility] with symptoms of near syncope. There was mention of possible metabolic encephalopathy renal failure though most recent diana is 1.12 with a GFR estimate of 72. He does give a history of labile hypertension. It is mainly a drop in blood pressure when he standsup. Indeed this is the case check his orthostatic today. When he was sitting down his systolic blood pressure was 106 but when he stood up it was 84 in less than 2 minutes. He did not feel dizzy. 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 I am happy to see that an echocardiogram demonstrated a structurally normal heart. Working diagnosis from my neurology colleagues is autonomic dysfunction possibly from chronic alcohol use and I would tend to concur though I would have to say that I am definitely not an expert in autonomic dysfunction. He has been advised to wear an abdominal band as well as compression stockings which he has not done so as yet. I strongly urged him to do so. I think he is agreeable. he has been started on midodrine and he is says he feels less dizzy standing up. He was told not totake it if his systolic blood pressure is 130. I would like to increase the threshold to 150. We also talked about the importance of not changing posture to quickly. I would also like to recommend liberalization of his salt intake. Reminded him to always keep himself well-hydrated. Asked me about Viagra use. I would have to recommend against it for fear of significant hypotension. I will see him again in 3 months time for further follow-up. I do see that he is not on Florinef and that may be a next step if he continues to be symptomatic despite the above measures Unfortunately in my experience treatment of orthostatic hypotension due to autonomic dysfunction isextremely challenging. Orders Placed This Encounter Procedures Follow-Up with Cardiology No orders of the defined types were placed in this encounter. Encounter Diagnoses Name Primary? Labile blood pressure Other specified hypotension CURRENT MEDICATIONS: Current Outpatient Medications Medication Sig Dispense Refill aspirin 81 MG EC tablet Take 81 mg by mouth every morning atorvastatin (LIPITOR) 80 MG tablet Take 1 tablet (80 mg) by mouth every evening 90 tablet 0 cyanocobalamin (CYANOCOBALAMIN) 1000 MCG/ML injection Inject 1 mL into the muscle every 30 days disulfiram (ANTABUSE) 250 MG tablet Take 1 tablet (250 mg) by mouth daily 90 tablet 0 donepezil (ARICEPT) 5 MG tablet Take 1 tablet (5 mg) by mouth at bedtime escitalopram (LEXAPRO) 20 MG tablet Take 60 mg by mouth every evening melatonin 3 MG tablet Take 1 tablet (3 mg) by mouth nightly as needed for sleep midodrine (PROAMATINE) 2.5 MG tablet Take 1 tablet (2.5 mg) by mouth 2 times daily Hold if SBP<130. Do not take prior to sleeping Multiple Vitamins-Iron (TAB-A-CATRACHO/IRON) TABS Take 1 capsule by mouth daily 100 tablet 3 phenylephrine (LEATHA-SYNEPHRINE) 1 % nasal spray [place] 1 drop into both nostrils daily as needed for congestion tamsulosin (FLOMAX) 0.4 MG capsule Take 0.8 mg by mouth every evening thiamine (B-1) 100 MG tablet Take 100 mg by mouth every evening ALLERGIES Allergies Allergen Reactions Donepezil Diarrhea Hospitalized for diarrhea/dehydration Sulfa Antibiotics Rash PAST MEDICAL HISTORY: Past Medical History: Diagnosis Date ALCOHOL ABUSE, IN REMISSION AA weekly Arthritis Chronic kidney disease Eczema ED (erectile dysfunction) HTN (hypertension), benign 2003 Hyperlipidemia 2005 Prediabetes 2008 PAST SURGICAL HISTORY: Past Surgical History: Procedure Laterality Date HC REMOVE TONSILS/ADENOIDS,<12 Y/O [facility] ARTHROTOMY W/OPEN MENISCUS REPAIR 2008 right -TRIA FAMILY HISTORY: Family History Problem Relation Age of Onset [...] hx of Dementia No family hx of [place] Disease No family hx of Parkinsonism No family hx of Autism Spectrum Disorder No family hx of Intellectual Disability No family hx of Mental Illness No family hx of SOCIAL HISTORY: Social History Socioeconomic History Marital status: Spouse name: Porsche Number of children: 2 Years of education: None Highest education level: None Occupational History 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 Employer: [employer] Comment: lost job -insubordination Tobacco Use Smoking status: Former Current packs/day: 0.50 Average packs/day: 0.5 packs/day for 54.5 years (27.2 ttl pk-yrs) Types: Cigarettes, Other Start date: 10/20/1969 Passive exposure: Past Smokeless tobacco: Never Tobacco comments: Recently stopped 12/09/23 Substance and Sexual Activity Alcohol use: No Alcohol/week: 0.0 standard drinks of alcohol Comment: 100ml or more daily; recent relapse 08/18/15 Drug use: No Sexual activity: Yes Partners: Female Review of Systems: Skin: Eyes: ENT: Respiratory: Positive for Cardiovascular: dizziness;Positive for;syncope or near-syncope;fatigue;exercise intolerance Gastroenterology: Genitourinary: Musculoskeletal: Neurologic: Positive for numbness or tingling of feet Psychiatric: Positive for sleep disturbances Heme/Lymph/Imm: Endocrine: Physical Exam: Vitals: BP 124/78 (BP Location: Right arm, Patient Position: Sitting, Cuff Size: Adult Regular) Pulse 87 Ht 1.778 m (5' 10) Wt 70.4 kg (155 lb 3.2 oz) SpO2 97% BMI 22.27 kg/m?? Constitutional: cooperative frail Skin: warm and dry to the touch Head: normocephalic, no masses or lesions Eyes: conjunctivae and lids unremarkable Lymph:No Cervical lymphadenopathy present ENT: no pallor or cyanosis, dentition good Neck: carotid pulses are full and equal bilaterally, JVP normal, no carotid bruit Respiratory: normal breath sounds, clear to auscultation, normal A-P diameter, normal symmetry, normal respiratory excursion, no use of accessory muscles Cardiac: regular rhythm, normal S1/S2, no S3 or S4, apical impulse not displaced, no murmurs, gallops or rubs pulses full and equal, no bruits auscultated GI: abdomen soft, non-tender, BS normoactive, no mass, no HSM, no bruits Extremities and Muscular Skeletal: no deformities, clubbing, cyanosis, erythema observed Neurological: tremor Psych: Alert and Oriented x 3 Recent Lab Results: LIPID RESULTS: Lab Results Component Value Date CHOL 166 12/24/2023 CHOL 237 (A) 06/20/2023 HDL 49 12/24/2023 HDL 44 06/20/2023 LDL 89 12/24/2023 LDL 148 (A) 06/20/2023 LDL 90 11/19/2021 TRIG 138 12/24/2023 TRIG 224 (A) 06/20/2023 CHOLHDLRATIO 5 06/20/2023 LIVER ENZYME RESULTS: Lab Results Component Value Date AST 60 (H) 03/09/2024 AST 15 11/19/2021 ALT 108 (H) 03/09/2024 ALT 24 11/19/2021 CBC RESULTS: Lab Results Component Value Date WBC 6.9 03/09/2024 WBC 7.5 12/31/2023 RBC 4.11 (L) 03/09/2024 RBC 4.38 (A) 12/31/2023 HGB 12.6 (L) 03/09/2024 HGB 13.8 12/31/2023 HCT 37.2 (L) 03/09/2024 HCT 41.7 12/31/2023 MCV 91 03/09/2024 MCV 95.3 12/31/2023 MCH 30.7 03/09/2024 MCH 31.5 12/31/2023 MCHC 33.9 03/09/2024 MCHC 33.1 12/31/2023 RDW 13.2 03/09/2024 RDW 13.9 08/17/2019 PLT 236 03/09/2024 PLT 244 12/31/2023 PLT 145 (L) 08/17/2019 BMP RESULTS: Lab Results Component Value Date NA 140 03/09/2024 NA 141.3 12/31/2023 POTASSIUM 3.7 03/09/2024 POTASSIUM 4.14 12/31/2023 CHLORIDE 104 03/09/2024 CHLORIDE 106.0 12/31/2023 CO2 23 03/09/2024 CO2 28.3 12/31/2023 ANIONGAP 13 03/09/2024 ANIONGAP 4 01/21/2022 ANIONGAP 9 08/18/2019 GLC 99 03/04/2024 GLC 104 (A) 12/31/2023 BUN 18.9 03/09/2024 BUN 21 12/31/2023 BUN 15.8 12/31/2023 CR 1.12 03/09/2024 CR 1.33 (A) 12/31/2023 GFRESTIMATED 72 03/09/2024 GFRESTIMATED 59 (A) 12/31/2023 GFRESTBLACK 67 08/18/2019 COREY 9.1 03/09/2024 COREY 9.7 12/31/2023 A1C RESULTS: Lab Results Component Value Date A1C 5.2 12/24/2023 A1C 5.6 11/19/2021 INR RESULTS: Lab Results Component Value Date INR 1.00 12/25/2023 INR 0.95 12/24/2023 INR 0.95 08/18/2015 INR 0.94 03/22/2015 CC Nathalie Tate MD [address] [place] [address] documented in this encounter Plan of Treatment Upcoming Encounters Date Type Department Care Team (Late st Contact Info) Description 06/29/2024 2:45 PM CDT Office Visit [facility] [address] [place] [address] [address] [place] [address] Akash Fitzgerald MD [address] [place] [address] Scheduled Procedures Name Priority Associated Diagnoses Date/Ti me CYSTOURETEROSCOPY, WITH LITH OTRIPSY USING LASER AND URETERAL STENT INSERTION Ureteral stone Scheduled Referrals Name Type Priority Associated Diagnoses Orde r Schedule Follow-Up with Cardiology Referral Routine: Next available opening Labile blood pressure Other specified hypotension Expected: 07/03/2024 (Approximate), Expires: 04/02/2025 documented as of this encounter Goals Goal Patient Goal Type Associated Problems Recent Progress Patient-Stated? Author Transportation General On track( 019 3:46 PM [employer] ADVISOR) Yes Nani Sainz LSW Note: Goal Statement: Caregiver will learn of options for transportation and volunteer respite services. Measure of Success: Caregiver will know if options are available. Supportive Steps to Achieve: CC will send resources via text and caregiver will call. Barriers: recently moved home after rehab. Strengths: Caregiver works, just started with [employer] services today, 10-28 Date to Achieve By: January 17, 2019 Patient expressed understanding of goal: caregiver understands. documented as of this encounter Visit Diagnoses Diagnosis Labile blood pressure Elevated blood pressure reading without diagnosis of hypertension Other specified hypotension documented in this encounter Additional Health Concerns Assessment Noted Time PHQ-9 Depression Total Score: 10 022 4:15 PM CDT documented as of this encounter Care Teams Tar Boiler Relationship Specialty Start Date End Date Nathalie Tate MD [address] [place] [address] PCP - General Family Medicine 12/09/23 Nathalie Tate MD [address] [place] [address] Assigned PCP 06/28/23 Akash Fitzgerald MD [address] [place] [address] Cardiovascular Disease 03/16/24 documented as of this encounter
--- OUTSIDE RECORDS SUMMARY | 2024-06-16 04:53 | XMS_ITS | Encounter Summary ---
Author Organization [facility] Address [address] [place] [address]. [place] [address] Care Team Providers Care Warehouse Guard Name Role Phone Nathalie Tate MD Unavailable [phone] Nathalie Tate MD Primary Care Provider [phone] Ip, Akash Escobar MD Unavailable [phone] Ip, Akash Escobar MD Unavailable Reason for Visit * Auth/Cert Specialty Diagnoses / Procedures Referred By Lobo falk Referred To Contact EMERGENCY MEDICINE Diagnoses UTI (urinary tract infection) Emergency Dept [address] [place] [address] Referral ID Status Reason Start Date Expiration Date Visits Re quested Visits Authorized [id number] 1 1 Encounter Details Date Type Department Care Team (Late st Contact Info) Description 06/09/2024 6:30 AM CDT Anesthesia Event [facility] [address] [place] [address] Lita Hensley MD [facility] [place] [address] [place], [place] [address] Tex Saldana MD [facility] ANESTHESIA [address] [place], [place] [id number] Anesthesia Record Procedure Summary Procedure Name Responsible Anesthesiologist Anesthesia Start Time Anesthesia Stop Time Cystoscopy, right retrograde pyelogram, interpretation of fluoroscopic images. Right ureteral stent placement (Right: Urethra) Lita Hensley MD 06/09/24 0630 06/09/24 0703 Events Date Time Event Comment 06/09/2024 0630 An Start Anesthesia Star t is defined as when the anesthesia provider assumed care, began anesthesia prep, remained continuously present with the patient, and excludes all time for performing the pre-anesthesia evaluation. The Pre-Anesthesia Evaluation was completed before Anesthesia Start. 0631 AN REASSESS I attest that I have identified and re-evaluated the patient immediately before the induction of anesthesia and I am satisfied that the anesthetic plan is suitable for the patient's condition and procedure. The first vital signs recorded are pre- induction. Jin Helton APRN CRNA 0631 Quick Note To OR., monitor s on, preoxygenation, smooth IV induction, LMA in easily, taped secure. 0634 An Start Data 0635 An Induction 0636 An LMA 0638 Anesthesia Ready for Procedu re 0654 Quick Note Patient awake t o commands with good respiratory effort, LMA removed, oxygen per face mask to PACU. 0655 AN Extubation All extubation criteria met prior to removal. 0656 an stop data 0703 An Stop Electronically signed by Jin Helton APRN CRNA on June 09, 2024 7:03 AM Meds Name Total fentaNYL 50 mcg/mL 100 mcg lidocaine 2% 50 mg propofol 10 mg/mL 150 mg dexamethasone (DECADRON) 4 mg/mL 8 mg ondansetron 2 mg/mL 4 mg glycopyrrolate 0.2 mg/mL 0.2 mg ceFAZolin Sodium (ANCEF) injection 2 g 2 g LR 500 mL * Agents Name O2 N2O Air Exp Sevoflurane Exp Isoflurane Exp Desflurane Ins Sevoflurane Ins Isoflurane Ins Desflurane * Blood No blood administrations on file. Lines, Drains, and Airways Type Details Placement Removal Incision/Surgical Site 06/09/24; 0644; Penis 0644 by Isaac Deleon RN Peripheral IV 20 G; Left; Antecubi stanley fossa 06/08/242037 by 06/10/240 by Alayna Lindsay RN Urethral Catheter 06/09/24; 0646; No; Surgical procedure; 16 fr 06/09/24 0646 by Isaac Deleon RN 06/10/24 1023 by Yue Vazquez RN Ureteral Drain/Stent 06/09/24; 0646; Rig ht ureter; 16 fr; Standard; Yes 06/09/24 0646 by Isaac Deleon RN 06/12/24 1709 by Inpatient, Nurse documented in this encounter Social History Tobacco Use Types Packs/Day Years [...] Answer Date Recorded Do you have housing? (Laniin g is defined as stable permanent housing [...] on file documented as of this encounter OR Notes * Anesthesia Postprocedure Evaluation - Lita Hensley MD - 06/09/2024 8:15 AM CDT Patient: Jed Alamo Procedure: Procedure(s): Cystoscopy, retrogrades, insert right ureteral stent Anesthesia Type: General Note: Disposition: Inpatient Postop Pain Control: PONV: No Neuro/Psych: Uneventful Sign Out: Acceptable/Baseline neuro status Airway/Respiratory: Uneventful Sign Out: Acceptable/Baseline resp. status CV/Hemodynamics: Uneventful Sign Out: Acceptable CV status; No obvious hypovolemia; No obvious fluid overload Other NRE: DID A NON-ROUTINE EVENT OCCUR? No Last vitals: Vitals Value Taken Time BP 137/73 06/09/24 0803 Temp 98.8 ??F (37.1 ??C) 06/09/24 0803 Pulse 92 06/09/24 0803 Resp 18 06/09/24 0803 SpO2 93 % 06/09/24 0803 Electronically Signed By: Lita Hensley MD June 09, 2024 8:15 AM * Anesthesia Preprocedure Evaluation - Tex Saldana MD - 06/09/2024 3:56 AM CDT Anesthesia Pre-Procedure Evaluation Patient: Jed Alamo : 1955 Procedure : Procedure(s): Cystoscopy, retrogrades, insert left ureteral stent Past Medical History: Diagnosis Date ALCOHOL ABUSE, IN REMISSION AA weekly Arthritis Chronic kidney disease Eczema ED (erectile dysfunction) HTN (hypertension), benign 2003 Hyperlipidemia 2005 Prediabetes 2008 Past Surgical History: Procedure Laterality Date HC REMOVE TONSILS/ADENOIDS,<12 Y/O ZZHC ARTHROTOMY W/OPEN MENISCUS REPAIR 2007 right -TRIA Allergies Allergen Reactions Donepezil Diarrhea Hospitalized for diarrhea/dehydration Sulfa Antibiotics Rash Social History Tobacco Use Smoking status: Former Current packs/day: 0.50 Average packs/day: 0.5 packs/day for 54.6 years (27.3 ttl pk-yrs) Types: Cigarettes, Other Start date: 10/20/1969 Passive exposure: Past Smokeless tobacco: Never Tobacco comments: Recently stopped 12/09/23 Substance Use Topics Alcohol use: No Alcohol/week: 0.0 standard drinks of alcohol Comment: 100ml or more daily; recent relapse 08/18/15 Wt Readings from Last 1 Encounters: 06/08/24 70.3 kg (155 lb) Anesthesia Evaluation Pt has had prior anesthetic. Type: General. No history of anesthetic complications ROS/MED HX ENT/Pulmonary: - neg pulmonary ROS Neurologic: Comment: Mild cognitive impairment with ETOH and CVD contributing (+) dementia, CVA, date: 2014, with deficits, - left sided weakness and cognitive decline. Cardiovascular: (+) Dyslipidemia hypertension- - - - - METS/Exercise Tolerance: Hematologic: - neg hematologic ROS Musculoskeletal: (+) arthritis, GI/Hepatic: (+) liver disease, Renal/Genitourinary: (+) renal disease, type: CRI, Pt does not require dialysis, Endo: Comment: prediabetes Psychiatric/Substance Use: Comment: In remission (+) alcohol abuse Infectious Disease: Comment: Current diarrhea without antibiotic use C diff negative - neg infectious disease ROS Malignancy: - neg malignancy ROS Other: - neg other ROS Physical Exam Airway Mallampati: II TM distance: > 3 FB Neck ROM: full Mouth opening: > 3 cm Respiratory Devices and Support Dental Cardiovascular cardiovascular exam normal Rhythm and rate: regular and normal Pulmonary pulmonary exam normal breath sounds clear to auscultation Other findings: Lab Test 06/08/24 03/09/24 03/04/24 12/31/23 12/25/23 12/24/23 01/20/22 01/20/22 2038 0846 1132 0000 0521 1742 0631 0024 WBC 23.8* 6.9 7.6 < > 9.9 10.5 < > -- HGB 12.7* 12.6* 12.2* < > 12.2* 12.9* < > -- MCV 89 91 91 < > 89 90 < > -- PLT 145* 236 200 < > 223 240 < > -- INR -- -- -- -- 1.00 0.95 -- 1.15 < > = values in this interval not displayed. Lab Test 06/08/24 06/08/24 03/09/24 03/04/242037 1132 NA 137 -- 140 143 POTASSIUM 4.2 -- 3.7 4.1 CHLORIDE 103 -- 104 111* CO2 17* -- 23 21* BUN 39.3* -- 18.9 23.1* CR 2.83* -- 1.12 1.12 ANIONGAP 17* -- 13 11 COREY 9.2 -- 9.1 8.8 GLC 115* 109* -- 99 EKG Interpretation: Sinus tachycardia Otherwise normal ECG OUTSIDE LABS: CBC: Lab Results Component Value Date WBC 23.8 (H) 06/08/2024 WBC 6.9 03/09/2024 HGB 12.7 (L) 06/08/2024 HGB 12.6 (L) 03/09/2024 HCT 37.8 (L) 06/08/2024 HCT 37.2 (L) 03/09/2024 PLT 145 (L) 06/08/2024 PLT 236 03/09/2024 BMP: Lab Results Component Value Date NA 137 06/08/2024 NA 140 03/09/2024 POTASSIUM 4.2 06/08/2024 POTASSIUM 3.7 03/09/2024 CHLORIDE 103 06/08/2024 CHLORIDE 104 03/09/2024 CO2 17 (L) 06/08/2024 CO2 23 03/09/2024 BUN 39.3 (H) 06/08/2024 BUN 18.9 03/09/2024 CR 2.83 (H) 06/08/2024 CR 1.12 03/09/2024 GLC 115 (H) 06/08/2024 GLC 109 (H) 06/08/2024 COAGS: Lab Results Component Value Date PTT 27 12/25/2023 INR 1.00 12/25/2023 POC: Lab Results Component Value Date BGM 86 08/18/2019 HEPATIC: Lab Results Component Value Date ALBUMIN 3.6 06/08/2024 PROTTOTAL 6.7 06/08/2024 ALT 39 06/08/2024 AST 18 06/08/2024 ALKPHOS 140 06/08/2024 BILITOTAL 0.6 06/08/2024 KARLIE <10 (L) 02/28/2024 OTHER: Lab Results Component Value Date LACT 1.0 06/08/2024 A1C 5.2 12/24/2023 COREY 9.2 06/08/2024 PHOS 3.7 12/11/2023 MAG 1.5 (L) 06/08/2024 LIPASE 151 08/16/2019 AMYLASE 74 04/18/2018 TSH 0.46 03/01/2024 CRP 2.23 (H) 08/16/2015 SED 24 (A) 08/17/2015 Anesthesia Plan ASA Status: 3 NPO Status: NPO Appropriate Anesthesia Type: General. - Airway: LMA Induction: Intravenous. Maintenance: Balanced. Consents Anesthesia Plan(s) and associated risks, benefits, and realistic alternatives discussed. Questions answered and patient/environmental marketing representative(s) expressed understanding. - Discussed: Risks, Benefits and Alternatives for BOTH SEDATION and the PROCEDURE were discussed - Discussed with: Patient - Extended Intubation/Ventilatory Support Discussed: No. - Patient is DNR/DNI Status: No Use of blood products discussed: No . Postoperative Care Pain management: IV analgesics, Oral pain medications, Multi-modal analgesia. PONV prophylaxis: Ondansetron (or other 5HT-3), Dexamethasone or Solumedrol Comments: Tex Saldana MD I have reviewed the pertinent notes and labs in the chart from the past 30 days and (re)examined the patient. Any updates or changes from those notes are reflected in this note. # Hypomagnesemia: Lowest Mg = 1.5 mg/dL in last 2 days, will replace as needed # Drug Induced Platelet Defect: home medication list includes an antiplatelet medication documented in this encounter Miscellaneous Notes * Anesthesia Care Transfer Note - Jin Helton APRN COMMODITIES REQUIREMENTS ANALYST - 06/09/2024 7:02 AM CDT Patient: Jed Alamo Procedure: Procedure(s): Cystoscopy, retrogrades, insert right ureteral stent Diagnosis: Left ureteral calculus [N20.1] Diagnosis Additional Information: No value filed. Anesthesia Type: General Note: Oropharynx: spontaneously breathing Level of Consciousness: awake and drowsy Oxygen Supplementation: face mask Independent Airway: airway patency satisfactory and stable Dentition: dentition unchanged Vital Signs Stable: post-procedure vital signs reviewed and stable Report to RN Given: handoff report given Patient transferred to: PACU Comments: To PACU, report to RN, oxygen per face mask. Vitals: Vitals Value Taken Time BP 132/72 06/09/24 0700 Temp 97.2 ??F (36.2 ??C) 06/09/24 0658 Pulse 96 06/09/24 0701 Resp 17 06/09/24 0701 SpO2 100 % 06/09/24 0701 Vitals shown include unfiled device data. Electronically Signed By: Jin Helton APRN CRNA June 09, 2024 7:02 AM documented in this encounter Plan of Treatment Upcoming Encounters Date Type Department Care Team (Late st Contact Info) Description 06/29/2024 2:45 PM CDT Office Visit [facility] [id number] [place] [address] [address] [place] [address] Ip, Akash Escobar [facility] [address] [facility] [address] [place], [place] [id number] Scheduled Procedures Name Priority Associated Diagnoses Date/Ti me CYSTOURETEROSCOPY, WITH LITH OTRIPSY USING LASER AND URETERAL STENT INSERTION Ureteral stone documented as of this encounter Goals Goal Patient Goal Type Associated Problems Recent Progress Patient-Stated? Author Transportation General On track( 019 3:46 PM MSWS) Yes Nani Sainz LSW Note: Goal Statement: Caregiver will learn of options for transportation and volunteer respite services. Measure of Success: Caregiver will know if options are available. Supportive Steps to Achieve: CC will send resources via text and caregiver will call. Barriers: recently moved home after rehab. 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 documented as of this encounter Visit Diagnoses Not on filedocumented in this encounter Administered Medications Inactive Administered Medications - up to 3 most recent administrations Medication Order MAR Action Action Date Dose Rate Site ceFAZolin Sodium (ANCEF) injection 2 g Routine, 2 g, Intravenous, PRE-OP/PRE-PROCEDURE, Starting on Fri06/09/24 at 0532, For 1 dose, Give first dose within 1 hour PRIOR to incision. If patient weight is greater than or equal to 120 kg increase dose to 3 g., Indications: Perioperative Pharmacoprophylaxis, Pre-procedure $Given 06/09/2024 6:39 AM CDT 2 g dexAMETHasone (DECADRON) injection Intravenous, PRN, Administer over 1 Minutes, Starting on Fri06/09/24 at 0635, Anesthesia Intra-op $Given 06/09/2024 6:35 AM CDT 8 mg fentaNYL (PF) (SUBLIMAZE) injection Intravenous, PRN, Administer over 3-5 Minutes, Starting on Fri06/09/24 at 0635, Anesthesia Intra-op $Given 06/09/2024 6:35 AM CDT 100 mcg glycopyrrolate (ROBINUL) injection Intravenous, PRN, Administer over 1-2 Minutes, Starting on Fri06/09/24 at 0635, Anesthesia Intra-op $Given 06/09/2024 6:35 AM CDT 0.2 mg lactated ringers infusion Intravenous, CONTINUOUS PRN, Anesthesia Intra-op, Starting on Fri06/09/24 at 0631, Until Fri06/09/24 at 0703 $New Bag 06/09/2024 6:31 AM CDT lidocaine 2% injection (MDV) Intravenous, PRN, Starting on Fri06/09/24 at 0635, Anesthesia Intra-op $Given 06/09/2024 6:35 AM CDT 50 mg ondansetron (ZOFRAN) injection Intravenous, PRN, Administer over 2-5 Minutes, Starting on Fri06/09/24 at 0635, Anesthesia Intra-op $Given 06/09/2024 6:35 AM CDT 4 mg propofol (DIPRIVAN) injection 10 mg/mL vial Intravenous, PRN, Starting on Fri06/09/24 at 0635, Anesthesia Intra-op $Given 06/09/2024 6:35 AM CDT 150 mg documented in this encounter Additional Health Concerns Infection Onset Date Last Indicated Resolved Time Rule Out C-difficile 06/08/2024 06/10/2024 024 11:50 AM CDT Assessment Noted Time PHQ-9 Depression Total Score: 10 022 4:15 PM CDT documented as of this encounter Care Teams Warehouse Guard Relationship Specialty Start Date End Date Nathalie Tate MD [address] [place] [address] PCP - General Family Medicine 12/09/23 Nathalie Tate MD [address] [place] [address] Assigned PCP 06/28/23 Akash Fitzgerald MD [address] [place] [address] Cardiovascular Disease 03/16/24 Akash Fitzgerald MD [address] [place] [address] Assigned Heart and Vascular Provider 04/11/24 documented as of this encounter
--- OUTSIDE RECORDS SUMMARY | 2024-06-16 04:53 | XMS_ITS | Encounter Summary ---
Author Organization [place] Address [facility] [place] [address] Care Team Providers Care Department Of Natural Resources Officer Name Role Phone Nathalie Tate MD Unavailable [phone] Nathalie Tate MD Primary Care Provider [phone] Ip, Akash Escobar MD Unavailable [phone] IpAkash MD Unavailable [phone] Reason for Visit * Reason Comments Diarrhea * Auth/Cert Specialty Diagnoses / Procedures Referred By Lobo falk Referred To Contact EMERGENCY MEDICINE Diagnoses UTI (urinary tract infection) Emergency Dept [address] [place] [address] Referral ID Status Reason Start Date Expiration Date Visits Re quested Visits Authorized [id number] 1 1 Encounter Details Date Type Department Care Team (Late st Contact Info) Description 06/09/2024 6:30 AM CDT - 06/09/2024 7:15 AM CDT Surgery [facility] PeriOp Services [address] [place] [address] Kory Mcclure MD [address] [facility] [address] [place] [address] Cystoscopy, right retrograde pyelogram, interpretation of fluoroscopic images. Right ureteral stent placement Surgery Details Date/Time Status Location OR Service Patient Class Case Cl ass Case Type Trauma Case? 06/09/24 6:30 AM Posted [facility] OR OR 14 Urology Inpatient NEST 4 - Urgent (within 12hrs) Panel 1 Procedure L[facility] Anes Op Region Wound Class Comments Cystoscopy, right retrograde pyelogram, interpretation of fluoroscopic images. Right ureteral stent placement Right General Urethra II-Clean Contami nated Surgeon Surgeon Role Service Panel Kory Mcclure MD Primary Urology 1 documented in this encounter Social History Tobacco [...] in an abandoned building, in an overnight senior care, or couch-surfing.) Yes 06/09/2024 Are you worried [...] Sign Reading Time Taken Comments Blood Pressure 133/73 06/09/2024 7:15 AM CDT Pulse 97 06/09/2024 7:15 AM CDT Temperature 36.2 ??C (97.2 ??F) 06/09/2024 6:58 AM CD T Respiratory Rate 19 06/09/2024 7:15 AM CDT Oxygen Saturation 100% 06/09/2024 7:15 AM CDT Inhaled Oxygen Concentration - - Weight 70.3 kg (155 lb) 06/08/2024 7:52 PM CDT Height 180.3 cm (5' 11) 06/08/2024 7:52 PM CDT Body Mass Index 22.45 06/08/2024 7:52 PM CDT documented in this encounter Discharge Instructions * Discharge Instructions* Nery Whitt MSW - 06/11/2024 3:00 PM CDT [facility] haven't heard from them within [...] 06/03/2019 phenylephrine (LEATHA-SYNEPHRINE) 1 % nasal spray Bailey 1 drop into both nostrils daily as needed for congestion tamsulosin (FLOMAX) 0.4 MG capsule Take 0.8 mg by mouth every evening 03/17/2020 thiamine (B-1) 100 MG tablet Take 100 mg by mouth every evening documented as of this encounter Progress Notes * Bibi Rader BSW - 06/12/2024 3:09 PM CDT Care Management Discharge Note Discharge Date: 06/12/2024 Discharge Disposition: Home Discharge Services: [facility] - PT Discharge DME: None Discharge Transportation: family or friend will provide Private pay costs discussed: Not applicable Patient/Family in Agreement with the Plan: yes Handoff Referral Completed: No Additional Information: SW following for discharge planning. Pt has discharge orders to go home today with home care PT. [facility] home care is the accepting agency. Orders sent to [facility] via BringMeThat. Family to transport. LEXIS Blankenship, [facility] Care Coordination [phone] LEXIS Winston * Lucius Solis MD - [...] accepting agency. SW spoke with patient's Ignacio phone, she is in agreement with patient discharging home with HC when medically stable. CC/SW wi ll continue to follow. 1500: [facility] accepted for home care PT. AVS updated. ILA Shirley, [facility] Inpatient Care Coordination [facility] [phone] * Patricia Jefferson PA-C - 06/11/2024 1:00 PM CDT [facility] Medicine Progress Note - Hospitalist Service [...] monitor for resolution to baseline #HLP -continue WASH CREW PERSON Atorvastatin #Hx of postural hypotension -Continue Midodrine [...] Patient's Family. Patricia Jefferson PA-C Hospitalist Service [facility] Securely message with DripDrop (more info) Text page via [facility] Paging/Directory Interval History Patient sitting up in [...] Paris PA-C - 06/11/2024 8:50 AM CDT [facility] Urology Progress Note Assessment and Plan: Assessment: [...] with any urological concerns. Rosalina Paris PA-C [facility] [phone] Interval History: Doing okay, but endorses being [...] Alix Guerrero PA-C 250 mg at 06/11/24 08 donepezil (ARICEPT) tablet 10 mg 10 mg [...] All cultures: Recent Labs Lab 06/09/24 0048 06/08/24 2224 CULTURE >100,000 CFU/mL Klebsiella pneumoniae* >100,000 CFU/mL [...] reporting pt participating minimally in daily activites WASH CREW PERSON, will benefit from PT during stay with cont home PT for strengthening, activity tolerance and HEP * Rosalina Paris PA-C - 06/10/2024 10:00 AM CDT [facility] Urology Progress Note Assessment and Plan: Assessment: [...] kidney function and leukocytosis. Rosalina Paris PA-C [facility] [phone] Interval History: Doing okay. Blood culture showed [...] 0.2 mg 0.2 mg Intramuscular Q2 Min PRHarvey Page DO Or naloxone (NARCAN) injection 0.4 mg [...] tablet 2 tablet 2 tablet Oral BID PRKory Fair MD sodium chloride (PF) 0.9% PF flush 3 mL 3 mL Intracatheter Q8H Kory Mcclure MD 3 mL at 06/09/24 0328 sodium chloride (PF) 0.9% PF flush 3 mL 3 mL Intracatheter q1 min prn Kory Mcclure MD sodium chloride 0.9 % infusion Intravenous Continuous Ailx Guerrero PA-C 100 mL/hr at 06/10/24 0334 [...] Guerrero PA-C - 06/10/2024 9:58 AM CDT [facility] Medicine Progress Note - Hospitalist Service [...] care was discussed with the Bedside Nurse, Telecommunications Specialist/Construction Manager, Patient, and Patient's Family. Alix Guerrero PA-C Hospitalist Service [facility] Securely message with DripDrop (more info) Text page via [facility] Paging/Directory Interval History Has no complaints for [...] Guerrero PA-C - 06/09/2024 11:52 AM CDT [facility] Medicine Progress Note - Hospitalist Service [...] Patient's Family. Alix Guerrero PA-C Hospitalist Service [facility] Securely message with D[employer] (more info) Text page via [employer] Paging/Directory Interval History Reports he feels better [...] EXAM: CT ABDOMEN PELVIS W/O CONTRAST LOCATION: [facility] DATE: 06/08/2024 INDICATION: V/d, renal failure, sepsis. [...] Narrative EXAM: XR CHEST 2 VIEWS LOCATION: [facility] DATE: 06/08/2024 INDICATION: sepsis COMPARISON: 12/09/2023 Impression IMPRESSION: Heart size is normal. Lungs are clear bilaterally. Mediastinum and visualized bony structures are unremarkable. XR Surgery KATY L/T 5 Min Fluoro w Stills Narrative This exam was marked as non-reportable because it will not be read by a radiologist or a [place] non-radiologist provider. * Rosalina Paris PA-C - 06/09/2024 10:00 AM CDT [facility] Urology Progress Note Assessment and Plan: Assessment: [...] continue to follow along. Rosalina Paris PA-C [facility] [phone] Interval History: Doing okay. Currently denies any [...] mL 3 mL Intracatheter q1 min prn Ren, Kory Stanley, MD Physical Exam: Vitals were reviewed Patient [...] Novoa DO - 06/09/2024 2:51 AM CDT [facility] Hospitalist H&P Name: Jed Alamo Date [...] cough. His ultimately brought him to the [facility] for evaluation. Here in the ED [...] tablet (5 mg) by mouth at bedtime Love, Sabrina Morrell APRN CNP No escitalopram (LEXAPRO) 20 MG tablet Take 60 mg by mouth every evening Alton Alonzo MD Yes melatonin 3 MG tablet Take 1 tablet (3 mg) by mouth nightly as needed for sleep Sabrina Boss APRN CNP midodrine (PROAMATINE) 2.5 MG tablet Take 1 tablet (2.5 mg) by mouth 2 times daily Hold if SBP<130. Do not take prior to sleeping Sabrina Boss APRN CNP Multiple Vitamins-Iron (TAB-A-CATRACHO/IRON) TABS Take 1 capsule by mouth daily Alton Alonzo MD phenylephrine (LEATHA-SYNEPHRINE) 1 % nasal spray Bailey 1 drop into both nostrils daily as [...] -- COREY 9.2 -- Recent Labs Lab 06/08/242224 LACT 1.0 Recent Labs Lab 06/09/24 0048 [...] EXAM: CT ABDOMEN PELVIS W/O CONTRAST LOCATION: [facility] DATE: 06/08/2024 INDICATION: V/d, renal failure, sepsis. [...] Narrative EXAM: XR CHEST 2 VIEWS LOCATION: [facility] DATE: 06/08/2024 INDICATION: sepsis COMPARISON: 12/09/2023 Impression IMPRESSION: Heart size is normal. Lungs are clear bilaterally. Mediastinum and visualized bony structures are unremarkable. Harvey Novoa DO MPH [facility] Hospitalist Lu[facility] Robledo [facility] [place] [address] 06/09/2024 documented in this encounter Consult Notes * Mayra Bermeo - 06/11/2024 4:30 PM CDTAssociated Order(s): SPIRITUAL HEALTH SERVICES IP CONSULT SPIRITUAL HEALTH SERVICES - Consult Note [facility] Obs 2 Referral Source: [facility] Consult Nathan said that he has an infection and is trying to pass kidney stones. He said he has two daughters, one a trauma surgeon, one with a double masters and is an Hol[employer] enamel drier. He said that he doesn't have a arun community, not really anymore and said his daughters are hissource of support. I have to close my eyes now, he said. Plan: Chaplains remain available upon request. Mayra Bermeo [facility] Retail Performance Specialist [facility] available 12/05 for emergent requests/referrals, either by paging the on-call enamel drier or by entering an LUIS MANUEL/STAT consult in [facility] (this will also page the on-call enamel drier). * Leyla Dowling RN - 06/09/2024 10:48 [...] Communication Assessment Patient's communication style: spoken language (Cypriot or Bilingual) Hearing Difficulty or Deaf: yes [...] At functional baseline Values/Beliefs: Spiritual, Cultural Beliefs, Shinto Practices, Values that affect care: Description of Beliefs that Will Affect Care: restorationist Care Management Discharge Note Discharge Date: 06/11/2024 [...] Leyla Dowling RN BSN Inpatient Care Coordination [facility] * Kory Mcclure MD - 06/09/2024 6:17 AM CDTAssociated Order(s): UROLOGY IP CONSULT Images from the original note were not included. [facility] Consultation by [facility] @NAME@ Age: [age] year old Date [...] we await urine culture results. Kory Mcclure M.D. [facility] [phone] Chief Complaint: History is obtained from the [...] hx of Dementia No family hx of [place] Disease No family hx of Parkinsonism No [...] (MICATIN) 2 % powder Topical BID PRN Bright, Harvey Dandre, DO [Auto Hold] ondansetron (ZOFRAN ODT) ODT [...] Packet 17 g 17 g Oral BID PRHarvey Page DO [Auto Hold] senna-docusate (SENOKOT-S/PERICOLACE) 8.6-50 MG [...] - 06/09/2024 2:56 AM CDT During downtime, selling underwriter went into pt room at approximately 0210 [...] PRN Tylenol as per orders displayed on Zillow. Mohs Surgeon agreeable and Tylenol given to pt at 0226. Mohs Surgeon initiated 1L NS bolus at 0230. Pt [...] 129/81 andHR approx 110. Temp now 100.8. Mohs Surgeon did also paper document meds and fluids on paper downtime form. Pt remained alert and oriented x 4 throughout. Mohs Surgeon to handover pt to boarder nurse in [...] Oral 115 -- 96 % -- -- 06/08/240 117/62 -- -- 96 -- -- -- -- 06/08/242244 123/63 -- -- 96 -- -- -- -- 06/08/240 (!) 110/91 -- -- 98 -- -- [...] Bilirubin Urine Negative Ketones Urine Negative Specific [place] Urine 1.018 Blood Urine Moderate (*) pH [...] Pressure Ventricular Rate 121 Atrial Rate 121 ID Interval 140 QRS Duration 88 QT 310 QTc 440 P [place] 56 R AXIS 62 T [place] 60 Interpretation ECG Sinus tachycardia Read by Dr Cody, 5869 Independent Interpretation None ED Course Medications Administered Medications sodium chloride 0.9% BOLUS 1,000 mL (1,000 mLs Intravenous $New Bag 06/09/24231) magnesium sulfate 2 g in 50 mL [...] BOLUS 1,000 mL (0 mLs Intravenous Stopped 06/08/242) sodium chloride 0.9% BOLUS 1,000 mL (0 mLs Intravenous Stopped 06/09/24 0052) cefTRIAXone (ROCEPHIN) 1 g vial to attach to NS 100 mL bag for ADULTS or NS 50 mL bag for PEDS (0 gIntravenous Stopped 06/09/24 0253) Procedures None Discussion of Management Admitting Hospitalist, Harvey Novoa DO Urology, Dr. Mcclure ED Course ED Course as of 06/09/24 0255 FriJun 08, [id number] I initially assessed the patient and obtained the history and physical exam. FriJun 09, 2024121 I discussed with Dr. Mcclure with urology. 123 I discussed with Harvey Noova DO with the hospitalist team. Additional Documentation None Medical Decision Making / Diagnosis [facility] Diagnoses: None MIPS None MDM Jed Alamo [...] goal(s). See goals on Care Plan in [facility] electronic health record for goal details. [...] Valdez RN Outcome: Progressing Flowsheets (Taken 06/12/2024 0830) Outcome Evaluation: vss afebrile. denies pain. iv [...] 1440 by Chetna Valdez RN Outcome: Progressing 06/12/202445 by Chetna Valdez RN Outcome: Progressing Goal: Absence of Hospital-Acquired Illness or Injury 06/12/2024 1440 by Chetna Valdez RN Outcome: Progressing 06/12/202445 by Chetna Valdez RN Outcome: Progressing Intervention: Identify and Manage Fall Risk Recent Flowsheet Documentation Taken 06/12/2024 0830 by Chetna Valdez RN Safety Promotion/Fall Prevention: clutter free environment maintained increased rounding and observation mobility aid in reach nonskid shoes/slippers when out of bed room door open room near nurse's station room organization consistent safety round/check completed supervised activity Intervention: Prevent Skin Injury Recent Flowsheet Documentation Taken 06/12/2024 0830 by Chetna Valdez RN Body Position: position changed independently Intervention: Prevent and Manage VTE (Venous Thromboembolism) Risk Recent Flowsheet Documentation Taken 06/12/2024 08 by Chetna Valdez RN VTE Prevention/Management: SCDs off (sequential compression devices) Intervention: Prevent Infection Recent Flowsheet Documentation Taken 06/12/2024 0830 by Chetna Valdez RN Infection Prevention: equipment [...] 0945 by Chetna Valdez RN Outcome: Progressing Intervention: Prevent or Manage Pain Recent Flowsheet Documentation Taken 06/12/2024 08 by Chetna Valdez RN Medication Review/Management: medications reviewed Intervention: Optimize Psychosocial Wellbeing Recent Flowsheet Documentation Taken 06/12/2024 08 by Chetna Valdez RN Supportive Measures: active listening utilized goal-setting facilitated Problem: Fall Injury Risk Goal: Absence of Fall and Fall-Related Injury 06/12/2024 1440 by Chetna Valdez RN Outcome: Progressing 06/12/2024 0945 by Chetna Valdez RN Outcome: Progressing Intervention: Identify and Manage Contributors Recent Flowsheet Documentation Taken 06/12/2024 08 by Chetna Valdez RN Medication Review/Management: medications reviewed Intervention: Promote Injury-Free Environment Recent Flowsheet Documentation Taken 06/12/2024 0830 by Chetna Valdez RN Safety Promotion/Fall Prevention: [...] Fall Risk Recent Flowsheet Documentation Taken 06/11/2024 2343 by Wilber Mckeon RN Safety Promotion/Fall Prevention: assistive device/personal items within reach clutter free environment maintained nonskid shoes/slippers when out of bed safety round/check completed Taken 06/11/2024 2342 by Wilber Mckeon RN Safety Promotion/Fall Prevention: assistive device/personal items within reach clutter free environment maintained nonskid shoes/slippers when out of bed safety round/check completed Intervention: Prevent Skin Injury Recent Flowsheet Documentation Taken 06/11/20242342 by Wilber Mckeon RN Body Position: position changed independently Taken 06/11/20242341 by Wilber Mckeon RN Body Position: position changed independently Goal: Optimal Comfort and Wellbeing Outcome: Progressing Goal: Readiness for Transition of Care Outcome: Progressing Problem: Pain Acute Goal: Optimal Pain Control and Function Outcome: Progressing Intervention: Prevent or Manage Pain Recent Flowsheet Documentation Taken 06/11/20242342 by Wilber [...] bed safety round/check completed Taken 06/11/20242341 by Wilbre Mckeon RN Safety Promotion/Fall Prevention: assistive device/personal items within reach clutter free environment maintained nonskid shoes/slippers when out of bed safety round/check completed Problem: Infection Goal: Absence of Infection Signs and Symptoms Outcome: Progressing * Plan of Care - Micaela Baptiste RN - 06/11/2024 11:43 PM CDT [id number] Inpatient Progress Note: A & O X [...] your shift note. Outcome: Progressing Flowsheets (Taken 06/11/20242342) Plan of Care Reviewed With: patient Goal: [...] on your shift note. 06/11/20241958 by Lindsey Godo, RN Outcome: Not Progressing Flowsheets (Taken 06/11/20241958) Outcome Evaluation: around 1730 - patient was shivering and temperature was 100.4, elevated BP. difficult to arouse, refusing to go to the bathroom. CC contacted - discharge cancelled & blood cultures ordered PRN tylenol given. Overall Patient Progress: declining 06/11/2024 102 by Lindsey Good, RN Outcome: Progressing Flowsheets (Taken 06/11/20241025) Outcome Evaluation: A&Ox4, low motivation to get [...] 06/11/20241025 by Lindsey Good, RN Outcome: Progressing Goal: Absence of Hospital-Acquired Illness or Injury 06/11/20241958 by Lindsey Good, RN Outcome: Not Progressing 06/11/2024 1026 by Lindsey Good, RN Outcome: Progressing Intervention: Identify and Manage Fall Risk Recent Flowsheet Documentation Taken 06/11/2024 0800 by Lindsey Good, RN Safety Promotion/Fall Prevention: activity supervised clutter free environment maintained nonskid shoes/slippers when out of bed room organization consistent safety round/check completed mobility aid in reach Intervention: Prevent Skin Injury Recent Flowsheet Documentation Taken 06/11/2024 0800 by Lindsey Good RN Body Position: position maintained prone Intervention: Prevent and Manage VTE (Venous Thromboembolism) Risk Recent Flowsheet Documentation Taken 06/11/2024 08 by Lindsey Good RN VTE Prevention/Management: SCDs off (sequential compression devices) Intervention: Prevent Infection Recent Flowsheet Documentation Taken 06/11/2024 08 by Lindsey Good RN Infection Prevention: hand hygiene promoted equipment surfaces disinfected rest/sleep promoted single patient room provided Goal: Optimal Comfort and Wellbeing 06/11/20241958 by Lindsey Good RN Outcome: Not Progressing 06/11/2024 1026 by Lindsey Good RN Outcome: Progressing Goal: Readiness for Transition of Care 06/11/20241958 by Lindsey Good RN Outcome: Not Progressing 06/11/2024 102 by Lindsey Good RN Outcome: Progressing Problem: Fall Injury Risk Goal: Absence of Fall and Fall-Related Injury 06/11/20241958 by Lindsey Good RN Outcome: Not Progressing 06/11/2024 1026 by Lindsey Good RN Outcome: Progressing Intervention: Identify and Manage Contributors Recent Flowsheet Documentation Taken 06/11/2024 08 by Lindsey Good RN Medication Review/Management: medications [...] 1026 by Lindsey Good RN Outcome: Progressing * [...] met: Yes - Urology is signing off Cake Stripper Nurse Safe discharge environment identified: Yes - [...] in room to attempt stone collection. On [facility] protocol - 1.6, no replacement needed and [...] Manage Fall Risk Recent Flowsheet Documentation Taken 06/11/2024799 by Lindsey Good RN Safety Promotion/Fall Prevention: activity supervised clutter free environment maintained nonskid shoes/slippers when out of bed room organization consistent safety round/check completed mobility aid in reach Intervention: Prevent Skin Injury Recent Flowsheet Documentation Taken 06/11/2024799 by Lindsey Good, RN Body Position: position maintained prone Intervention: Prevent and Manage VTE (Venous Thromboembolism) Risk Recent Flowsheet Documentation Taken 06/11/2024799 by Lindsey Good RN VTE Prevention/Management: SCDs off (sequential compression devices) Intervention: Prevent Infection Recent Flowsheet Documentation Taken 06/11/2024799 by Lindsey Good, RN Infection Prevention: hand hygiene promoted equipment surfaces disinfected rest/sleep promoted single patient room provided Goal: Optimal Comfort and Wellbeing Outcome: Progressing Goal: Readiness for Transition of Care Outcome: Progressing Problem: Fall Injury Risk Goal: Absence of Fall and Fall-Related Injury Outcome: Progressing Intervention: Identify and Manage Contributors Recent Flowsheet Documentation Taken 06/11/2024799 by Lindsey Good, art education professor Review/Management: medications reviewed Intervention: Promote Injury-Free Environment Recent Flowsheet Documentation Taken 06/11/2024799 by Lindsey Good, PILO Safety Promotion/Fall Prevention: activity supervised clutter free environment maintained nonskid shoes/slippers when out of bed room organization consistent safety round/check completed mobility aid in reach Problem: Infection Goal: Absence of Infection Signs and Symptoms Outcome: Progressing * Plan of Care - Dipesh Gomez RN - 06/11/2024 7:01 AM CDT 1193-1992 Inpatient Progress Note: BP (!) 155/76 (BP [...] Review Description: Outcome: Progressing Flowsheets (Taken 06/11/2024 07) Plan of Care Reviewed With: patient Overall [...] or Manage Infection Recent Flowsheet Documentation Taken 06/10/20242352 by iDpesh Gomez RN Isolation Precautions: enteric precautions discontinued * Plan of Care - Alayna Lindsay RN - 06/10/2024 10:06 PM CDT [id number] Inpatient Progress Note: BP (!) 166/77 (BP [...] Documentation Taken 06/10/20242111 by Alayna Lindsay RN Isolation Precautions: enteric precautions discontinued Goal [...] Return to near baseline physical activity: No Cake Stripper Nurse Safe discharge environment identified: Yes Barriers [...] Documentation Taken 06/10/2024 1553 by Lindsey Good, RN Safety Promotion/Fall Prevention: activity supervised nonskid shoes/slippers when out of bed room near nurse's station room organization consistent safety round/check completed Intervention: Prevent Skin Injury Recent Flowsheet Documentation Taken 06/10/2024 1553 by Lindsey Good, RN Body Position: position changed independently Intervention: Prevent and Manage VTE (Venous Thromboembolism) Risk Recent Flowsheet Documentation Taken 06/10/2024 1553 by Lindsey Good, RN VTE Prevention/Management: SCDs off (sequential compression [...] Documentation Taken 06/10/2024 1553 by Lindsey Good art education professor Review/Management: medications reviewed Intervention: Promote Injury-Free Environment [...] Return to near baseline physical activity: Yes Cake Stripper Nurse Safe discharge environment identified: Yes Barriers [...] Lindsay RN - 06/10/2024 4:24 AM CDT 2383-2014 Inpatient Progress Note: BP 125/64 (BP Location: [...] Recent Flowsheet Documentation Taken 06/09/20242047 by Alayna Lnidsay RN Medication Review/Management: medications reviewed Intervention: Promote [...] shift note. Outcome: Progressing Flowsheets (Taken 06/09/2024 1658) Outcome Evaluation: Pt is stable , afebrile. [...] Fall Risk Recent Flowsheet Documentation Taken 06/09/2024 1612 by Sylvia Camacho, RN Safety Promotion/Fall Prevention: activity supervised clutter free environment maintained increase visualization of patient increased rounding and observation nonskid shoes/slippers when out of bed patient and family education treat underlying cause treat reversible contributory factors safety round/check completed room organization consistent Intervention: Prevent Infection Recent Flowsheet Documentation Taken 06/09/2024 1612 by Sylvia Camacho RN Infection Prevention: visitors restricted/screened environmental surveillance [...] Prevent Infection Recent Flowsheet Documentation Taken 06/09/2024 08 by Kelly Jensen RN Infection Prevention: hand hygiene promoted personal protective equipment utilized rest/sleep promoted single patient room provided Goal: Optimal Comfort and Wellbeing Outcome: Progressing Goal: Readiness for Transition of Care Outcome: Progressing Intervention: Mutually Develop Transition Plan Recent Flowsheet Documentation Taken 06/09/2024 0811 by Kelly Jensen, RN Equipment Currently Used at Home: none * Pharmacy-Admission Medication History - Ariella Pino, [facility] - 06/09/2024 12:02 PM CDT Pharmacist Admission Medication History Admission medication history is complete. The information provided in this note is only as accurateas the sources available at the time of the update. Information Source(s): Family member and CareEverywhere/SureScripts via phone Pertinent Information: Changes made to [employer]ERSON medication list: Added: None Deleted: None Changed: Aricept 5mg qhs-->10mg qhs Allergies reviewed with patient and updates made in EHR: unable to assess Medication History Completed By: Peggy Pino PharmD 06/09/2024 12:04 PM [employer]ERSON Med List Medication Sig Last Dose aspirin [...] 06/07/2024 phenylephrine (LEATHA-SYNEPHRINE) 1 % nasal spray Bailey 1 drop into both nostrils daily as needed for congestion 06/07/2024 tamsulosin (FLOMAX) 0.4 MG capsule Take 0.8 mg by mouth every evening 06/07/2024 thiamine (B-1) 100 MG tablet Take 100 mg by mouth every evening 06/07/2024 * Significant Event - Kelly Jensen RN - 06/09/2024 11:33 AM CDT DATE/TIME OF CALL RECEIVED FROM LAB: 06/09/24 at 11:33 AM LAB TEST: Blood culture LAB VALUE: + for klebsiella pneumoniae PROVIDER NOTIFIED?: Yes PROVIDER NAME: Ondina Guerrero DATE/TIME LAB VALUE REPORTED TO PROVIDER: 06/08 11:34 MECHANISM OF PROVIDER NOTIFICATION: [id number] PROVIDER RESPONSE: Ok * Provider Notification - Yue Vazquez RN - 06/09/2024 9:30 AM CDT DATE/TIME OF CALL RECEIVED FROM LAB: 06/09/24 at 9:30 AM LAB TEST: BC from 1023 LAB VALUE: positive for gram negative bacilli PROVIDER NOTIFIED?: Yes PROVIDER NAME: Mary WU DATE/TIME LAB VALUE REPORTED TO PROVIDER: MECHANISM OF PROVIDER NOTIFICATION: [id number] PROVIDER RESPONSE: Ok * Plan of Care - Kelly Jensen RN - 06/09/2024 8:35 AM CDT ROOM # 227 Living Situation (if not independent, order SW consult): 4 level split home Facility name: box person: [place] Activity level at baseline: Independent Activity [...] expectations with patient/family. * Op Note - Koyr Mcclure MD - 06/09/2024 6:43 AM CDT [...] the standard sterile fashion.I inserted the 22 Bulgarian rigid cystoscope through the urethra into the [...] I drained the bladder with a 16 Bulgarian catheter. The patient tolerated the procedure well without complication. The patient went to the postanesthetic care unit in good condition. documented in this encounter Plan of Treatment Upcoming Encounters Date Type Department Care Team (Late st Contact Info) Description 06/29/2024 2:45 PM CDT Office Visit [address] [address] AmilcarAkash MD [address] [place] [id number] Pending Results Name Type Priority Associated Diagnoses [...] Transportation General On track( 019 3:46 PM MANAGER AUTO) Yes Nani Sainz LSW Note: Goal Statement: [...] - 15 mmol/L 06/12/2024 9:20 AM CDT [facility] Urea Nitrogen 22.9 8.0 - 23.0 mg/dL 06/12/2024 9:20 AM CDT [facility] Creatinine 1.77(H) 0.67 - 1.17 mg/dL 06/12/2024 9:20 AM CDT [facility] GFR Estimate 42(L) >60 mL/min/1.7 3m2 06/12/2024 9:20 AM CDT [facility] Comment:eGFR calculated usin 2020 CKD-EPI equation. Calcium 7.9(L) 8.8 - [...] - 99 mg/dL 06/12/2024 9:20 AM CDT LABORATORY Blood STRUCTURE OF RIGHT UPPER LIMB / Unknown Venipuncture / Unknown 06/12/2024 8:38 AM CDT 06/12/2024 8:58 AM CDT Alix Guerrero PA-C LAB - BLOOD ORDERABLES LABORATORY [facility] [address] [facility] Lab (1st floor, no room number) [place] [address], [facility] * (ABNORMAL) CBC with platelets (06/12/2024 8:38 [...] - 450 10e3/uL 06/12/2024 9:12 AM CDT [facility] Blood STRUCTURE OF RIGHT UPPER LIMB / Unknown Venipuncture / Unknown 06/12/2024 8:38 AM CDT 06/12/2024 8:58 AM CDT Alix Guerrero PA-C LAB - BLOOD ORDERABLES [facility] Lab [address] Lab (1st floor, no room number) [address] * (ABNORMAL) Magnesium (06/12/2024 8:38 AM CDT) Magnesium 1.5(L) 1.7 - 2.3 mg/dL 06/12/2024 9:20 AM CDT LABORATORY Blood STRUCTURE OF RIGHT UPPER LIMB / Unknown Venipuncture / Unknown 06/12/2024 8:38 AM CDT 06/12/2024 8:58 AM CDT Patricia Jefferson PA-C LAB - BLOOD ORDE RABLES [facility] Lab [address] Lab (1st floor, no room number) [address] * Glucose by meter (06/11/2024 5:53 PM CDT) GLUCOSE BY METER POCT 89 70 - 99 mg/dL 06/11/2024 5:59 PM CDT [facility] POC Blood, Capillary BLOOD SPECIMEN / Unknown 06/11/2024 5:53 PM CDT 06/11/2024 5:59 PM CDT Bianca Snowden MD LAB - [facility] POCT [facility] POC [facility] [address] Lab (1st floor, no room number) [place] [address] * (ABNORMAL) Basic metabolic panel (06/11/2024 5:47 [...] - 99 mg/dL 06/11/2024 6:16 AM CDT [facility] Blood STRUCTURE OF RIGHT HAND / Unknown Venipuncture / Unknown 06/11/2024 5:47 AM CDT 06/11/2024 5:56 AM CDT Alix Guerrero PA-C LAB - BLOOD ORDERABLES [facility] [address] Lab (1st floor, no room number) [place] [address] * (ABNORMAL) CBC with platelets (06/11/2024 5:47 [...] PA-C LAB - BLOOD ORDERABLES [facility] [address] Lab (1st floor, no room number) [place] [address] * (ABNORMAL) Magnesium (06/11/2024 5:47 AM CDT) [facility] Magnesium 1.6(L) 1.7 - 2.3 mg/dL 06/11/2024 6:16 AM CDT LABORATORY Blood STRUCTURE OF RIGHT HAND / Unknown Venipuncture / Unknown 06/11/2024 5:47 AM CDT 06/11/2024 5:56 AM CDT Alix Guerrero PA-C LAB - BLOOD ORDERABLES [facility] [address] [facility] Lab (1st floor, no room number) [place] [phone] * Enteric Bacteria and Virus Panel PCR (06/10/2024 8:41 AM CDT) [facility] Campylobacter species Negative Negative 06/10/2024 12:48 PM [...] [facility] Norovirus Gl/Gll Negative Negative 08/22/20 24 12:48 PM CDT [facility] Rotavirus [...] PM CDT Assay performed using the FDA-cleared docBeatArray GI Panel from [employer] ??A negative result should not rule [...] by the Infectious Diseases Diagnostic Laboratory at [facility]. This laboratory is certified under the Clinical Laboratory Improvement Amendments of 1988 (CLIA-88) as qualified to perform high complexity clinical laboratory testing. Kory Mcclure MD LAB - MICRO GEN ERAL ORDERABLES Performing Organization Address City/[facility] Co de Phone Number U IDD LABORATORY [facility] Inf. Diseases Diag. Lab [address] [facility], Room [place] [phone] * C. difficile Toxin B PCR with reflex to C. difficile Antigen and Toxins A/B EIA (06/10/2024 8:41 AMCDT) C Difficile Toxin B by PCR Negative Negative 06/10/2024 11:50 AM CDT ID[facility] LAB[facility]ATORY Comment:A negative result do es not exclude actual disease due to C. difficile and may be due to improper collection, handling and storage of the specimen or the number of organisms in the specimen is below the detection limit of the assay. Stool RECTAL CONTENTS / Unknown Non-blood Collection / Unknown 06/10/2024 8:41 AM CDT 06/10/2024 8:59 AM CDT Narrative [facility] - 06/10/2024 11:50 AM CDT The CepMak[employer] Xpert C. difficile Assay, performed on the Active Scaler GeneXpert?? Instrument Systems, is a qualitative in [...] MD LAB - MICRO GEN ERAL ORDERABLES [facility] Inf. Diseases Diag. Lab [address] [facility], Room [address] [address] * Magnesium (06/10/2024 5:46 AM CDT) Magnesium 2.3 1.7 - 2.3 mg/dL 06/10/2024 6:52 AM CDT LABORATORY Blood STRUCTURE OF RIGHT UPPER LIMB / Unknown Venipuncture / Unknown 06/10/2024 5:46 AM CDT 06/10/2024 5:59 AM CDT Harvey Novoa DO LAB - BLOOD ORDERAB LES LABORATORY [facility] [address] Lab (1st floor, no room number) [place] [address], [facility] * (ABNORMAL) Basic metabolic panel (06/10/2024 5:46 [...] Guerrero PA-C LAB - BLOOD ORDERABLES LABORATORY [facility] [address] Lab (1st floor, no room number) [place] [address] * (ABNORMAL) CBC with platelets (06/10/2024 5:46 AM CDT) [facility] WBC Count 15.7(H) 4.0 - 11.0 10e3/uL [...] Guerrero PA-C LAB - BLOOD ORDERABLES LABORATORY [facility] [address] Lab (1st floor, no room number) [place] [phone] * (ABNORMAL) Magnesium (06/09/2024 2:23 PM CDT) Magnesium 2.9(H) 1.7 - 2.3 mg/dL 06/09/2024 3:07 PM CDT [facility] Blood STRUCTURE OF LEFT HAND / Unknown Venipuncture / Unknown 06/09/2024 2:23 PM CDT 06/09/2024 2:34 PM CDT Alix Guerrero PA-C LAB - BLOOD ORDERABLES [facility] LAB[facility]AT[facility] [address] Lab (1st floor, no room number) [place] [phone] * (ABNORMAL) CBC with platelets (06/09/2024 7:21 [...] AM CDT 06/09/2024 7:26 AM CDT Harvey Dandreguerita Novoa DO LAB - BLOOD ORDERAB LES LABORATORY [facility] [address] Lab (1st floor, no room number) [place] [address], [facility] * (ABNORMAL) Basic metabolic panel (06/09/2024 7:21 [...] >60 mL/min/1.7 3m2 06/09/2024 7:53 AM CDT LABORATORY Comment:eGFR calculated usin 2020 CKD-EPI equation. Calcium 7.7(L) 8.8 - [...] Novoa DO LAB - BLOOD ORDERAB LES [facility] [address] Lab (1st floor, no room number) [place] [address], [facility] * XR Surgery KATY L/T 5 Min Fluoro w Stills (06/09/2024 6:50 AM CDT) Narrative [facility] - 06/09/2024 6:51 AM CDT This exam was marked as non-reportable because it will not be read by a radiologist or a [place] non-radiologist provider. Harvey Novoa DO IMG DIAGNOSTIC IMAG ING ORDERABLES Performing Organization Address City/[facility]/ZIP Co de Phone Number [facility] * (ABNORMAL) Urine Culture (06/09/2024 12:48 [...] pneumoniae Cefazolin FROYLAN <=4 ug/mL: Susceptible Comment:Cefazolin NM C breakpoints are for the treatment of [...] pneumoniae Cefazolin FROYLAN <=4 ug/mL: Susceptible Comment:Cefazolin NM C breakpoints are for the treatment of [...] - MICRO GENERAL ORDERABLES [facility] LABORATORY [facility] Inf. Diseases Diag. Lab [address] [facility], [address] [place] [address], [facility] * (ABNORMAL) UA with Microscopic reflex to Culture (06/09/2024 12:48 AM CDT) Color Urine Yellow Colorless, Straw, Light Yellow, Yellow 06/09/2024 1:07 AM CDT [facility] Appearance Urine Slightly Cloudy(A) Clear 06/09/2024 1:07 AM CDT LABORATORY Glucose Urine Negative Negative mg/dL 06/09/2024 1:07 AM CDT [facility] Bilirubin Urine Negative Negative 1:07 AM CDT [facility] Ketones Urine Negative Negative mg/dL 06/09/2024 1:07 AM CDT [facility] Specific [place] Urine 1.018 1.003 - 1.035 06/09/2024 1:07 AM CDT [facility] Blood Urine Moderate(A) Negative 06/09/2024 1:07 AM CDT LABORATORY pH Urine 5.5 5.0 - 7.0 06/09/2024 1:07 AM CDT [facility] Protein Albumin Urine 100(A) Negative mg/dL 06/09/2024 1:07 AM CDT [facility] Urobilinogen Urine Normal Normal, 2.0 mg/dL 06/09/2024 1:07 AM CDT LABORATORY Nitrite Urine Positive(A) Negative 06/09/2024 1:07 AM CDT LABORATORY Leukocyte Esterase Urine Large(A) Negative 06/09/2024 1:07 AM CDT LABORATORY Bacteria Urine Moderate(A) None Seen /HPF 06/09/2024 1:07 AM CDT LABORATORY WBC Clumps Urine Present(A) None Seen /HPF 06/09/2024 1:07 AM CDT LABORATORY Mucus Urine Present(A) None Seen /LPF 06/09/2024 1:07 AM CDT LABORATORY RBC Urine 14(H) <=2 /HPF 06/09/2024 1:07 AM CDT LABORATORY WBC Urine >182(H) <=5 /HPF 06/09/2024 1:07 AM CDT LABORATORY Squamous Epithelials Urine <1 <=1 /HPF 06/09/2024 1:07 AM CDT LABORATORY Urine MID-STREAM URINE SPECIMEN / Unknown Non-blood Collection / Unknown 06/09/2024 12:48 AM CDT 06/09/2024 12:52 AM CDT Narrative LABORATORY - 06/09/2024 1:07 AM CDT Urine Culture ordered based on laboratory criteria Teofilo Cody MD LAB - URINE ORDERABL ES LABORATORY [facility] [address] [facility] Lab (1st floor, no room number) [place] [address] * XR Chest 2 Views (06/08/2024 11:47 PM CDT) Anatomical Region Laterality Modality Chest Digital Radiogra phy 06/08/2024 11:4 7 PM CDT Impressions 06/09/2024 12:00 AM CDT IMPRESSION: Heart size is normal. Lungs are clear bilaterally. Mediastinum and visualized bony structures are unremarkable. Narrative 06/09/2024 12:00 AM CDT EXAM: XR CHEST 2 VIEWS LOCATION: [facility] DATE: 06/08/2024 INDICATION: sepsis COMPARISON: 12/09/2023 Procedure Note Lon Pickard MD - 06/09/2024 EXAM: XR CHEST 2 VIEWS LOCATION: [facility] DATE: 06/08/2024 INDICATION: sepsis COMPARISON: 12/09/2023 IMPRESSION: [...] EXAM: CT ABDOMEN PELVIS W/O CONTRAST LOCATION: [facility] DATE: 06/08/2024 INDICATION: V/d, renal failure, sepsis. [...] EXAM: CT ABDOMEN PELVIS W/O CONTRAST LOCATION: [facility] DATE: 06/08/2024 INDICATION: V/d, renal failure, sepsis. [...] obstruction versus chronic cystitis. Teofilo Cody MD [facility] [place] ORDER[place]LES * (ABNORMAL) iStat Gases (lactate) [...] PM CDT Teofilo Cody MD LAB - BEAKER POCT RH LABORATORY POC [facility] [address] Lab (1st floor, no room number) [place] [address] * (ABNORMAL) Verigene GN Panel (06/08/2024 10:24 PM CDT) Pathologist [facility] Acinetobacter species Not Detected Not Detected 06/09/2024 [...] 06/09/2024 11:28 AM CDT Specimen tested with Reclogigene multiplex, gram-negative blood culture nucleic acid test for the following targets: Acinetobacter species, Citrobacter species, Enterobacter species, Proteus species, Escherichia coli, Klebsiella pneumoniae, Klebsiella oxytoca, Pseudomonas aeruginosa, and the following resistance markers: CTX-M, KPC, NDM, VIM, IMP and OXA. Teofilo Cody MD LAB - MICRO GENERAL ORDERABLES [facility] Inf. Diseases Diag. Lab [address] [facility], [address] [place], [place] [phone] * (ABNORMAL) Blood Culture Peripheral Blood (06/08/2024 [...] - MICRO GENERAL ORDERABLES [facility] Inf. Diseases Diag. Lab [address] [facility], [address] [place] [address], [facility] * CK total (06/08/2024 8:38 PM CDT) CK 194 39 - 308 U/L 06/08/2024 10:15 PM CDT LABORATORY Blood BLOOD SPECIMEN / Unknown Venipuncture / Unknown 06/08/2024 8:38 PM CDT 06/08/2024 8:50 PM CDT Teofilo Cody MD LAB - BLOOD ORDERABL ES Performing Organization Address City/[facility]/ZIP Co de Phone Number LABORATORY [facility] [address] Lab (1st floor, no room number) [place] [address], [facility] * (ABNORMAL) Procalcitonin (06/08/2024 8:38 PM CDT) [...] See Procalcitonin Guidance document for more details. [email or web address] Factors that may affect PCT levels (not [...] Cody MD LAB - BLOOD ORDERABL ES [facility] [address] [facility] Lab (1st floor, no room number) [place] [address], [facility] * (ABNORMAL) Magnesium (06/08/2024 8:38 PM CDT) Magnesium 1.5(L) 1.7 - 2.3 mg/dL 06/08/2024 10:15 PM CDT LABORATORY Blood BLOOD SPECIMEN / Unknown Venipuncture / Unknown 06/08/2024 8:38 PM CDT 06/08/2024 8:50 PM CDT Teofilo Cody MD LAB - BLOOD ORDERABL ES RH LABORATORY [facility] [address] Lab (1st floor, no room number) [place] [address], [facility] * (ABNORMAL) CBC with platelets [...] NRBCs 0.0 10e3/uL 06/08/2024 9:06 PM CDT LABORATORY Blood BLOOD SPECIMEN / Unknown Venipuncture / Unknown 06/08/2024 8:38 PM CDT 06/08/2024 8:50 PM CDT Akash Ramirez MD LAB - BLOOD ORDERA BLES LABORATORY [facility] [address] [facility] Lab (1st floor, no room number) [place] [address], [facility] * (ABNORMAL) Comprehensive metabolic panel (06/08/2024 8:38 [...] - 23.0 mg/dL 06/08/2024 9:13 PM CDT [facility] Creatinine 2.83(H) 0.67 - 1.17 mg/dL 06/08/2024 9:13 PM CDT [facility] GFR Estimate 24(L) >60 mL/min/1.7 3m2 06/08/2024 9:13 PM CDT [facility] Comment:eGFR calculated usin 2020 CKD-EPI equation. Calcium 9.2 8.8 - 10.4 mg/dL 06/08/2024 9:13 PM CDT [facility] Comment:Reference intervals for [...] - 5.2 g/dL 06/08/2024 9:13 PM CDT LABORATORY Bilirubin Total 0.6 <=1.2 mg/dL 06/08/2024 9:13 PM CDT LABORATORY Blood BLOOD SPECIMEN / Unknown Venipuncture / Unknown 06/08/2024 8:38 PM CDT 06/08/2024 8:50 PM CDT Akash Ramirez MD LAB - BLOOD ORDERA BLES LABORATORY [facility] [address] Lab (1st floor, no room number) [place] [address], [facility] * EKG 12 lead (06/08/2024 8:08 PM CDT) Systolic Blood Pressure mmHg RADIOLOGY RESULTS Diastolic Blood Pressure mmHg RADIOLOGY RESULTS Ventricular Rate 121 BPM RAD IOLOGY RESULTS Atrial Rate 121 BPM RADIOLOG Y RESULTS ID Interval 140 ms RADIOLOG Y RESULTS QRS Duration 88 ms RADIOLO GY RESULTS QT 310 ms RADIOLOGY RESULTS QTc 440 ms RADIOLOGY RESULTS P [place] 56 degrees RADIOLOGY RESULTS R AXIS 62 degrees RADIOLOGY RESULTS T [place] 60 degrees RADIOLOGY RESULTS Interpretation ECG Sinus tachycardia Otherwise normal ECG When compared with ECG of 25-Dec-2023 06:38, Vent. rate has increased by ??54 bpm Unconfirmed report - interpretation of this ECG is computer generated - see medical record for final interpretation Confirmed by - EMERGENCY ROOM, PHYSICIAN ([id number]), mapping editor SAMUEL TESFAYE ([id number]) on 06/09/2024 6:49:19 AM RADIOLOGY RESULTS 06/08/2024 8:08 PM CDT 06/09/2024 6:49 AM CDT Akash Ramirez MD ECG ORDERABLES RADIOLOGY RESULTS * (ABNORMAL) Glucose by meter (06/08/2024 8:01 PM CDT) GLUCOSE BY METER POCT 109(H) 70 - 99 mg/dL 06/08/2024 8:08 PM CDT LABORATORY POC Blood, Capillary BLOOD SPECIMEN / Unknown 06/08/2024 8:01 PM CDT 06/08/2024 8:08 PM CDT Provider Unknown LAB - BEAKER POCT LABORATORY POC [facility] [address] [facility] Lab (1st floor, no room number) [place] [address], [facility] documented in this encounter Visit Diagnoses Diagnosis [...] infection (H) Unspecified septicemia Left ureteral stone Left ureteral calculus Calculus of ureter documented in this encounter Administered Medications Inactive [...] 8:12 PM CDT 80 mg cefTRIAXone (ROCEPHIN) 2 [...] $Given 06/09/2024 8:11 PM CDT 60 mg iopamidol 61% (ISOVUE 300) 50 mL + sterile water for irrigation 50 mL PRN, Starting on Fri06/09/24 at 0649, Intra-procedure $Given 06/09/2024 6:49 AM CDT 30 ml given Operative Site/Surgi corey Site midodrine (PROAMATINE) tablet 2.5 mg 2.5 mg, [...] 3:28 AM CDT 3 mLs sodium chloride 0.9% irrigation (bag) PRN, Starting on Fri06/09/24 at 0649, Intra-procedure $Given 06/09/2024 6:49 AM CDT 300 mLs Operative Site/Surgi corey Site tamsulosin (FLOMAX) capsule 0.8 mg 0.8 mg, [...] 0800, DO NOT CRUSH., On hold since Fri06/12/2024 at 1449 until manually unheld 1449 (Held by provid er - Provider: Patricia Jefferson PA-C - Reason: Bleeding)1809 (Unheld by provider - Provider: Orders Generic Provider) atorvastatin (LIPITOR) tablet 80 mg 80 mg, Oral, EVERY EVENING, First dose on Fri06/09/24 at 1999 2011 ($Given - Provider: Alayna Lindsay RN) 2013 ($Given - Provider: Lindsey Good, PILO) cefTRIAXone (ROCEPHIN) 2 g vial to attach [...] Infection 0603 ($New Bag - Provider: Alayna Lindsay RN) 0522 ($New Bag - Provider: Dipesh Gomez RN) 0601 ($New Bag - Provider: Wilber Mckeon, PILO) disulfiram (ANTABUSE) tablet 250 mg 250 mg, Oral, DAILY, First dose on Fri06/09/24 at 1330 0836 ($Given - Provider: Michi Rocha, RN) 0802 ($Given - Provider: Lindsey Good, RN) 0830 ($Given - Provider: Chetna Arita, PILO) donepezil (ARICEPT) tablet 10 mg 10 mg, Oral, AT BEDTIME, First dose on Fri06/09/24 at 2200 2139 ($Given - Provider: Alayna Lindsay, PILO) 2216 ($Given - Provider: Micaela Baptiste RN) escitalopram (LEXAPRO) tablet 60 mg 60 mg, Oral, EVERY EVENING, First dose on Fri06/09/24 at 2000 2011 ($Given - Provider: Alayna Lindsay, PILO) [...] PA-C)2011 ($Given - Provider: Alayna Lindsay RN) 08 ($Given - Provider: Lindsey Good, PILO)2013 ($Given - Provider: Lindsey Good, PILO) 0830 ($Given - Provider: Chetna Arita, PILO) sodium chloride (PF) 0.9% PF flush 3 mL 3 mL, Intracatheter, EVERY 8 HOURS, First dose on Fri06/09/24 at 0125, to lock peripheral IV dormant line 0046 (Not Given - Provider: Alayna Lindsay RN - Reason: IV Infusing)0832 (Not Given - Provider: Yue Vazquez, RN - Reason: IV Infusing)1642 (Not Given [...] EVERY EVENING, First dose on Fri06/09/24 at 1999, Administer 30 minutes after the same meal each day. Capsules should be swallowed whole; do not crush chew or open. 2011 ($Given - Provider: Alayna Lindsay RN) 2013 ($Given - Provider: Lindsey Good RN) thiamine (B-1) tablet 100 mg 100 mg, Oral, EVERY EVENING, First dose on Fri06/09/24 at 2000 2011 ($Given - Provider: Alayna Lindsay, PILO) 2013 ($Given - Provider: Lindsey Good RN) Continuous Medication Order 06/10/2024 06/11/2024 06/12/2024 sodium chloride 0.9 % infusion (CANCELED) at 100 mL/hr, Intravenous, CONTINUOUS, Starting on Fri06/09/24 at 1230, Until Fri06/11/24 at 1321 0334 ($New Bag - Provider: Alayna Lindsay RN)1410 ($New Bag - Provider: Yue Vazquez, RN)2139 ($New Bag - Provider: Alayna Lindsay RN) [...] 75 mg/kg/day not to exceed 4 grams/day. 1830 (See Alternative - Provider: Lindsey Good RN) acetaminophen (TYLENOL) tablet 650 mg(Linked Group 1) 650 mg, Oral, EVERY 4 HOURS PRN, mild pain, other, and adjunct with moderate or severe pain or per patient request, Starting on Fri06/09/24 at 0122, Alternate with ibuprofen if ordered. Maximum acetaminophen dose from all sources = 75 mg/kg/day not to exceed 4 grams/day. 1830 ($Given - Provider: Lindsey Good RN) benzocaine-menthol (CHLORASEPTIC) 6-10 MG lozenge 1 lozenge 1 lozenge, Buccal, EVERY 1 HOUR PRN, sore throat, without fever, Starting on Fri06/09/24 at 012 calcium carbonate (TUMS) chewable tablet 500 mg 500 mg, Oral, 2 TIMES DAILY PRN, heartburn, Starting on Fri06/09/24 at 012 HYDROmorphone (DILAUDID) injection 0.2 mg 0.2 mg, [...] documented as of this encounter Care Teams Department Of Natural Resources Officer Relationship Specialty Start Date End Date Nathalie Tate MD [address] [place] [address] PCP - General Family Medicine 12/09/23 Nathalie Tate MD [address] [facility] [place] [address] Assigned PCP 06/28/23 Akash Fitzgerald MD [address] [place] [address] Cardiovascular Disease 03/16/24 Akash Fitzgerald MD [address] [place] [id number] Assigned Heart and Vascular Provider 04/11/24 documented as of this encounter
--- OUTSIDE RECORDS SUMMARY | 2024-06-16 04:53 | XMS_ITS | Encounter Summary ---
Author Organization [place] Address [facility] [place] [address] Care Team Providers Care Commission Auditor Name Role Phone Nathalie Tate MD Unavailable [phone] Nathalie Tate MD Primary Care Provider Ip, Akash Escobar MD Unavailable Ip, Akash Escobar MD Unavailable [phone] Encounter Details Date Type Department Care Team (Late st Contact Info) Description 06/10/2024 Orders Only [facility] [address] [place] [address] Kory Mcclure MD [address] [facility] [address] [place], [place] [address] Ureteral stone (Primary Dx) Social History Tobacco Use Types Packs/Day Years [...] in an abandoned building, in an overnight residential, or couch-surfing.) Yes 06/09/2024 Are you worried [...] Description 06/29/2024 2:45 PM CDT Office Visit [facility] [address] [facility] [address] [place] [address] Akash Fitzgerald MD [address] [place] [id number] Scheduled Procedures Name Priority Associated Diagnoses Date/Ti me CYSTOURETEROSCOPY, WITH LITH OTRIPSY USING LASER AND URETERAL STENT INSERTION Ureteral stone documented as of this encounter Goals Goal Patient Goal Type Associated Problems Recent Progress Patient-Stated? Author Transportation General On track( 019 3:46 PM CONVOLUTE TUBE WINDER) Yes Nani Sainz LSW Note: Goal Statement: Caregiver will learn of options for transportation and volunteer respite services. Measure of Success: Caregiver will know if options are available. Supportive Steps to Achieve: CC will send resources via text and caregiver will call. Barriers: recently moved home after rehab. Strengths: Caregiver works, just started with [employer] today, 1 Date to Achieve By: January 17, 2019 Patient expressed understanding of goal: caregiver understands. documented as of this encounter Visit Diagnoses Diagnosis Ureteral stone- Primary Calculus of ureter documented in this encounter Additional Health Concerns Infection Onset Date Last Indicated Resolved Time Rule Out C-difficile 06/08/2024 06/10/2024 024 11:50 AM CDT Assessment Noted Time PHQ-9 Depression Total Score: 10 022 4:15 PM CDT documented as of this encounter Care Teams Commission Auditor Relationship Specialty Start Date End Date Nathalie Tate MD [address] [place] [address] PCP - General Family Medicine 12/09/23 Nathalie Tate MD [address] [place] [address] Assigned PCP 06/28/23 Akash Fitzgerald MD [address] [place] [address] Cardiovascular Disease 03/16/24 Akash Fitzgerald MD [address] [place] [address] Assigned Heart and Vascular Provider 04/11/24 documented as of this encounter
--- OUTSIDE RECORDS SUMMARY | 2024-06-16 04:53 | XMS_ITS | Encounter Summary ---
Author Organization [place] Address [facility] [address] Care Team Providers Care Stevedore Hold Name Role Phone Nathalie Tate MD Unavailable [phone] Nathalie Tate MD Primary Care Provider [phone] Akash Fitzgerald MD Unavailable [phone] Encounter Details Date Type Department Care Team (Latest Contact Info) Description 04/02/2024 Travel Social History Tobacco Use Types Packs/Day [...] Description 06/29/2024 2:45 PM CDT Office Visit [facility] [address] [facility] [address] [place] [address] Akash Fitzgerald MD [address] [facility] [address] [place] [address] Scheduled Procedures Name Priority Associated Diagnoses Date/Ti me CYSTOURETEROSCOPY, WITH LITH OTRIPSY USING LASER AND URETERAL STENT INSERTION Ureteral stone documented as of this encounter Goals Goal Patient Goal Type Associated Problems Recent Progress Patient-Stated? Author Transportation General On track( 019 3:46 PM FIGHT MANAGER) Yes Nani Sainz LSW Note: Goal Statement: Caregiver will learn of options for transportation and volunteer respite services. Measure of Success: Caregiver will know if options are available. Supportive Steps to Achieve: CC will send resources via text and caregiver will call. Barriers: recently moved home after rehab. Strengths: Caregiver works, just started with adult [employer] services today, 10-28 Date to Achieve By: January 17, 2019 Patient expressed understanding of goal: caregiver understands. documented as of this encounter Visit Diagnoses Not on filedocumented in this encounter Additional Health Concerns Assessment Noted Time PHQ-9 Depression Total Score: 10 022 4:15 PM CDT documented as of this encounter Care Teams Stevedore Hold Relationship Specialty Start Date End Date Nathalie Tate MD [address] [place] [address] PCP - General Family Medicine 12/09/23 Nathalie Tate MD [address] [place] [address] Assigned PCP 06/28/23 Akash Fitzgerald MD [address] [place] [address] Cardiovascular Disease 03/16/24 documented as of this encounter
--- OUTSIDE RECORDS SUMMARY | 2024-06-16 04:53 | XMS_ITS | Encounter Summary ---
Author Organization [place] Address [address] [place] [address] Care Team Providers Care Hl7 Interface Developer Name Role Phone Nathalie Tate MD Unavailable [phone] Nathalie Tate MD Primary Care Provider [phone] [facility] Unavailable Sabrina Boss APRN SKEIN WINDING OPERATOR Unavailable [phone] Akash Fitzgerald MD Unavailable [phone] Reason for Referral * CV Cardio consult (Routine) - Pending Review Specialty Diagnoses / Procedures Referred By Lobo t Referred To Contact Cardiovascular Disease Diagnoses Labile blood pressure Other specified hypotension Nathalie Tate MD [address] [place] [address] Referral ID Status Reason Start Date Expiration Date V isits Requested Visits Authorized [id number] Pending Review 03/12/2024 03/12/2025 1 1 Question Answer Reason for Consult: General Cardiology Scheduling Instructions: [facility] will call you to coordinate your care as prescribed by your provider. If you don't hear from a mill representative within 2 business days, please call [phone]. Comments Please be aware that coverage of these services is subject to the terms and limitations of your health insurance plan. Call member services at your health plan with any benefit or coverage questions. [employer] will call you to coordinate your care as prescribed by your provider. If you don't hear from a mill representative within 2 business days, please call [phone]. Reason for Visit * Reason Comments Hospital F/U Encounter Details Date Type Department Care Team (Late st Contact Info) Description 03/12/2024 11:45 AM CDT Office Visit [facility] [address] [place] [address] [address] [place] [phone] Nathalie Tate MD [address] [place] [address] Labile blood pressure (Primary Dx); Other specified hypotension; Moderate episode of recurrent major depressive disorder (H) Social History Tobacco Use Types Packs/Day [...] Sign Reading Time Taken Comments Blood Pressure 128/82 03/12/2024 11:37 AM CDT Pulse 86 03/12/2024 11:37 AM CDT Temperature 36.6 ??C (97.8 ??F) 03/12/2024 11:37 AM C DT Respiratory Rate - - Oxygen Saturation 96% 03/12/2024 11:37 AM CDT Inhaled Oxygen Concentration - - Weight 70.3 kg (155 lb) 03/12/2024 11:37 AM CDT Height - - Body Mass Index 22.89 03/10/2024 8:03 AM CDT documented in this encounter Progress Notes * Nathalie Tate MD - 03/12/2024 11:45 AM CDT Assessment & Plan Problem List Items Addressed This Visit Behavioral Recurrent major depressive disorder (H)- Dr. Valencia Other Visit Diagnoses Labile blood pressure - Primary Relevant Orders Adult Cardiology Eval Cigarette Tipper Referral - To a [facility] Location Other specified hypotension Relevant Orders Adult Cardiology Eval Cigarette Tipper Referral - To a [facility] Location 1. Labile blood pressure Watch at home, referral done to cardiology. is concerned. - Adult Cardiology Eval Cigarette Tipper Referral - To a [facility] Location; Future 2. Other specified hypotension - Adult Cardiology Eval Cigarette Tipper Referral - To a [facility] Location; Future 3. Moderate episode of recurrent major depressive disorder (H) Discussed that he is currently being treated it appears by neurology. Discuss with neurology if they would like him to see psychiatry also. He doesn't know if he should still be on the aricept, not currently having diarrhea or side effectsthat his thought that he previously had, I advised to check today with neurologist if they want him to continue this or stop it. MED REC REQUIRED Post Medication Reconciliation Status: discharge medications reconciled, continue medications without change FUTURE APPOINTMENTS: - Follow-up visit with neurology. No follow-ups on file. Subjective Nathan is a 68 year old, presenting for the following health issues: Hospital F/U [facility] Hospital Follow-up Visit: Hospital/[facility]/IP Rehab Facility: [facility] Date of Admission: 02/28/24 Date of Discharge: 03/04/24 pt was then transferred to TCU where he is to be discharged tomorrow Reason(s) for Admission: Metabolic encephalopathy (related to orthostatic hypotension, SILVANO). Resolved Cognitive/memory impairment. Depression/anxiety. Stroke history. Marked narrowing distal left P2. Was the patient in the ICU or did the patient experience delirium during hospitalization? No Do you have any other stressors you would like to discuss with your provider? No Problems taking medications regularly: None Medication changes since discharge: Started on donepezil 5mg Problems adhering to non-medication therapy: None Here for hospital discharge. Here with . In November got aricept from the neurologist but this gave him diarrhea, then he ended up back in the hospital. He got restarted back on donapezil. He is back on it and she is worried about this giving him the sx again. She said the blood pressure variesa lot and is concerned about this. Depends if he is standing or sitting or lying down. Confusion isn't better. Blood pressure looks great today. Had low blood pressure. Depression--was previously seeing a therapist. Then psychiatry. But says she hasn't seen them for years. Summary of hospitalization: [facility] discharge summary reviewed Diagnostic Tests/Treatments reviewed. Follow up needed: physical therapy, neurology. Has apt April 06. Other Healthcare Providers Involved in Patient???s Care: None Update since discharge: stable. Plan of care communicated with patient and family Review of Systems Constitutional, HEENT, cardiovascular, pulmonary, gi and gu systems are negative, except as otherwise noted. Objective BP 128/82 (BP Location: Right arm, Patient Position: Sitting, Cuff Size: Adult Regular) Pulse 86 Temp 97.8 ??F (36.6 ??C) (Temporal) Wt 70.3 kg (155 lb) SpO2 96% BMI 22.89 kg/m?? Body mass index is 22.89 kg/m??. Physical Exam GENERAL: alert and no distress MS: no gross musculoskeletal defects noted, no edema NEURO: Normal strength and tone, mentation intact and speech normal PSYCH: mentation appears normal, affect normal/bright gives most of the history Signed Electronically by: Nathalie Tate MD documented in this encounter Nursing Notes * Felicita Carr CMA - 03/12/2024 11:45 AM CDT Chief Complaint Patient presents with Hospital F/U documented in this encounter Plan of Treatment Upcoming Encounters Date Type Department Care Team (Late st Contact Info) Description 06/29/2024 2:45 PM CDT Office Visit [facility] [place] [address] [facility] [address] [place] [phone] Akash Fitzgerald MD [address] [place] [address] Scheduled Procedures Name Priority Associated Diagnoses Date/Ti me CYSTOURETEROSCOPY, WITH LITH OTRIPSY USING LASER AND URETERAL STENT INSERTION Ureteral stone Scheduled Referrals Name Type Priority Associated Diagnoses Orde r Schedule Adult Cardiology Eval Cigarette Tipper Referral - To [facility] Location Referral Routine: Next available opening Labile blood pressure Other specified hypotension Expected: 03/12/2024 (Approximate), Expires: 03/12/2025 documented as of this encounter Goals Goal Patient Goal Type Associated Problems Recent Progress Patient-Stated? Author Transportation General On track( 019 3:46 PM LINING SEWER) Yes Nani Sainz LSW Note: Goal Statement: Caregiver will learn of options for transportation and volunteer respite services. Measure of Success: Caregiver will know if options are available. Supportive Steps to Achieve: CC will send resources via text and caregiver will call. Barriers: recently moved home after rehab. Strengths: Caregiver works, just started with adult [employer] services today, 10-28 Date to Achieve By: January 17, 2019 Patient expressed understanding of goal: caregiver understands. documented as of this encounter Visit Diagnoses Diagnosis Labile blood pressure- Primary Elevated blood pressure reading without diagnosis of hypertension Other specified hypotension Moderate episode of recurrent major depressive disorder (H) documented in this encounter Additional Health Concerns Assessment Noted Time PHQ-9 Depression Total Score: 10 022 4:15 PM CDT documented as of this encounter Care Teams Hl7 Interface Developer Relationship Specialty Start Date End Date Nathalie Tate MD [address] [place] [address] PCP - General Family Medicine 12/09/23 Nathalie Tate MD [address] [place] [address] Assigned PCP 06/28/23 [facility], [address] [id number] 03/04/24 03/17/24 Sabrina Boss APRN SKEIN WINDING OPERATOR [address] [facility] [place] [address] Nurse Practitioner Geriatric Medicine 03/04/24 03/15/24 Akash Fitzgerald MD [address] [facility] [address] [place] [address] Cardiovascular Disease 03/16/24 documented as of this encounter
--- OUTSIDE RECORDS SUMMARY | 2024-06-16 04:53 | XMS_ITS | Encounter Summary ---
Author Organization [place] Address [address] [place] [address]. [place] [address] Care Team Providers Care Chemical Pathologist Name Role Phone Nathalie Tate MD Unavailable [phone] Nathalie Tate MD Primary Care Provider [phone] Ip, Akash Escobar MD Unavailable [phone] IpAkash MD Unavailable [phone] Encounter Details Date Type Department Care Team (Latest Contact Info) Description 06/08/2024 Travel Social History Tobacco Use Types Packs/Day [...] in an abandoned building, in an overnight [facility], or couch-surfing.) Yes 06/09/2024 Are you worried [...] Description 06/29/2024 2:45 PM CDT Office Visit [facility] [address] [place] [address] [address] [place] [phone] Akash Fitzgerald MD [address] [place] [address] Scheduled Procedures Name Priority Associated Diagnoses Date/Ti me CYSTOURETEROSCOPY, WITH LITH OTRIPSY USING LASER AND URETERAL STENT INSERTION Ureteral stone documented as of this encounter Goals Goal Patient Goal Type Associated Problems Recent Progress Patient-Stated? Author Transportation General On track( 019 3:46 PM POOL LIFEGUARD) Yes Nani Sainz LSW Note: Goal Statement: Caregiver will learn of options for transportation and volunteer respite services. Measure of Success: Caregiver will know if options are available. Supportive Steps to Achieve: CC will send resources via text and caregiver will call. Barriers: recently moved home after rehab. Strengths: Caregiver works, just started with adult [employer] services today, 1 Date to Achieve [...] documented as of this encounter Care Teams Chemical Pathologist Relationship Specialty Start Date End Date Nathalie Tate MD [address] [place] [address] PCP - General Family Medicine 12/09/23 Nathalie Tate MD [address] [place] [address] Assigned PCP 06/28/23 Akash Fitzgerald MD [address] [place] [address] Cardiovascular Disease 03/16/24 Akash Fitzgerald MD [address] [place] [address] Assigned Heart and Vascular Provider 04/11/24 documented as of this encounter
--- OUTSIDE RECORDS SUMMARY | 2024-06-16 04:53 | XMS_ITS | Encounter Summary ---
Author Organization [place] Address [address] [place] [address] Care Team Providers Care Pole Setter Name Role Phone Nathalie Tate MD Unavailable [phone] Nathalie Tate MD Primary Care Provider [phone] Akash Fitzgerald MD Unavailable [phone] Reason for Visit * Reason Onset Date Comments Home Care/Hospice 03/24/2024 Encounter Details Date Type Department Care Team (Late st Contact Info) Description 03/24/2024 Telephone [facility] [address] [place] [address] Nathalie Tate MD [address] [place] [address] Home Care/Hospice Social History Tobacco Use Types Packs/Day Years [...] Telephone Encounter - Felicita Carr CMA - 03/26/2024 10:45 AM CDT Notified nurse. She will relay message to patient and his . She will have them schedule OV if symptoms persist. * Telephone Encounter - Nathalie Tate MD - 03/25/2024 10:37 AM CDT If he is having increased weakness and dizziness, should be seen. He was referred to cardiology for the labile blood pressure. When is his apt for this? It sounds like they need to get in touch with neurology. Or he can see them but best to call first.He was supposed to see them after the hospitalization. Why are they supposed to call about the pulse? Pulse range considered normal is 60-100 if the patient doesn't have any symptoms. * Telephone Encounter - Felicita Carr CMA - 03/24/2024 5:43 PM CDT Rachael nurse from home care called with an update that pt is having increased weakness and dizziness. She stated he seems not very compliant. She stated he has been taking 3 midodrine daily, I advised he is only suppose to be on 2, she will inform him of this. She does not think he has reached out to neurology about his donepezil. She stated when they are out his pulse ranges from 55-85. She is hoping she can get some general parameters for his pulse so she does not have to call everyday with an update. Please advise (Rachael) # [phone] Felicita Quinn CMA documented in this encounter Plan of Treatment Upcoming Encounters Date Type Department Care Team (Late st Contact Info) Description 06/29/2024 2:45 PM CDT Office Visit [facility] [address] [facility] [address] [place] [address] Akash Fitzgerald MD [address] [place] [address] Scheduled Procedures Name Priority Associated Diagnoses Date/Ti me CYSTOURETEROSCOPY, WITH LITH OTRIPSY USING LASER AND URETERAL STENT INSERTION Ureteral stone documented as of this encounter Goals Goal Patient Goal Type Associated Problems Recent Progress Patient-Stated? Author Transportation General On track( 019 3:46 PM BOAT JOINER HELPER) Yes Nani Sainz LSW Note: Goal Statement: Caregiver will learn of options for transportation and volunteer respite services. Measure of Success: Caregiver will know if options are available. Supportive Steps to Achieve: CC will send resources via text and caregiver will call. Barriers: recently moved home after rehab. Strengths: Caregiver works, just started with adult [employer] [facility] today, 10-28 Date to Achieve By: January 17, 2019 Patient expressed understanding of goal: caregiver understands. documented as of this encounter Visit Diagnoses Not on filedocumented in this encounter Additional Health Concerns Assessment Noted Time PHQ-9 Depression Total Score: 10 022 4:15 PM CDT documented as of this encounter Care Teams Pole Setter Relationship Specialty Start Date End Date Nathalie Tate MD [address] [place] [address] PCP - General Family Medicine 12/09/23 Nathalie Tate MD [address] [place] [address] Assigned PCP 06/28/23 Akash Fitzgerald MD [address] [place] [address] Cardiovascular Disease 03/16/24 documented as of this encounter
--- OUTSIDE RECORDS SUMMARY | 2024-06-16 04:53 | XMS_ITS | Encounter Summary ---
Author Organization [place] Address [address] [place] [address] Care Team Providers Care Agency Service Coordinator Name Role Phone Nathalie Tate MD Unavailable [phone] Nathalie Tate MD Primary Care Provider [phone] Akash Fitzgerald MD Unavailable [phone] Reason for Visit * Reason Onset Date Comments Home Care/Hospice 04/09/2024 Encounter Details Date Type Department Care Team (Late st Contact Info) Description 04/09/2024 Telephone [facility] [place] [facility] [address] [place] [address] [address] [place] [address] Nathalie Tate MD [address] [place] [address] Home Care/Hospice Social History Tobacco [...] Telephone Encounter - Felicita Carr CMA - 04/09/2024 8:18 AM CDT Zhao nurse from [facility] called asking for orders. Seeking PT 4 visits and 2 PRN, they would also like behavioral health eval. KEP ok'd. I left for zhao giving verbal ok for orders. Zhao # [phone] documented in this encounter Plan of Treatment Upcoming Encounters Date Type Department Care Team (Late st Contact Info) Description 06/29/2024 2:45 PM CDT Office Visit [facility] [address] [facility] [address] [place] [address] Ip, Akash Escobar MD [address] [facility] [address] [place], [place] [address] Scheduled Procedures Name Priority Associated Diagnoses Date/Ti me CYSTOURETEROSCOPY, WITH LITH OTRIPSY USING LASER AND URETERAL STENT INSERTION Ureteral stone documented as of this encounter Goals Goal Patient Goal Type Associated Problems Recent Progress Patient-Stated? Author Transportation General On track( 019 3:46 PM BUILDING SUPPLIES SALESPERSON RETAIL) Yes Nani Sainz LSW Note: Goal Statement: [...] documented as of this encounter Care Teams Agency Service Coordinator Relationship Specialty Start Date End Date Nathalie Tate MD [address] [facility] [place] [address] PCP - General Family Medicine 12/09/23 Nathalie Tate MD [address] [facility] [place] [address] Assigned PCP 06/28/23 Akash Fitzgerald MD [address] [facility] [address] [place] [address] Cardiovascular Disease 03/16/24 documented as of this encounter
--- OUTSIDE RECORDS SUMMARY | 2024-06-16 04:54 | XMS_ITS | Encounter Summary ---
Author Organization [place] Address [address] [place] [address] Care Team Providers Care Motor Vehicle License Clerk Name Role Phone Alton Alonzo MD Primary Care Provide r Nani Sainz Unavailable [phone] Alton Alonzo MD Unavailable [facility] Unavailable Alton Alonzo MD Unavailable Nathalie Tate MD Unavailable [phone] Nathalie Tate MD Unavailable Alton Alonzo MD Unavailable Nathalie Tate MD Unavailable [phone] Nathalie Tate MD Primary Care Provider [facility] Unavailable Sabrina Boss GARAGE LABORER ENGINEER STATION MAINLINE Unavailable [phone] Rhiannon Newman RN Unavailable IpAkash MD Unavailable [phone] Akash Fitzgerald MD Unavailable [phone] Encounter Details Date Type Department Care Team (Late st Contact Info) Description 02/22/2015 MyC Medical Advice [facility] [address] [place] [phone] [facility] Social History Tobacco Use Types Packs/Day Years [...] Lynn - 02/22/2015 11:24 AM CDTFrom: Jed Alamo To: Alton Alonzo MD Sent: 02/22/2015 11:22 [...] Description 06/29/2024 2:45 PM CDT Office Visit [facility] [id number] [place] [address] [address] [place] [address] Akash Fitzgerald MD [address] [place], [place] [address] Scheduled Procedures Name Priority Associated Diagnoses Date/Ti me CYSTOURETEROSCOPY, WITH LITH OTRIPSY USING LASER AND URETERAL STENT INSERTION Ureteral stone documented as of this encounter Visit Diagnoses Not on filedocumented in this encounter Additional Health Concerns Infection Onset Date Last Indicated Resolved Time Rule Out COVID-19 12/09/2023 12/09/2023 12/09/2023 9:14 PM UPPER AND BOTTOM LACER HAND Rule Out C-difficile 06/08/2024 06/10/2024 024 11:50 AM CDT documented as of this encounter Care Teams Motor Vehicle License Clerk Relationship Specialty Start Date End Date Alton Alonzo MD [address] [place] [address] PCP - General 03/14/09 12/08/23 Nathalie Tate MD [address] [place] [address] PCP - General Family Medicine 12/09/23 Giandeena Nani, [facility] Lead Health And Wellness Advisor Primary Care - CC 10/15/1801/06 Alton Alonzo MD [facility] [address] [place] [address] Assigned PCP 07/23/12 01/26/22 [facility] 05/18/19 07/01/19 Alton Alonzo MD [address] [place] [address] Assigned PCP 02/03/22 08/16/22 Nathalie Tate MD [address] [place] [address] Assigned PCP 01/27/22 02/02/22 Nathalie Tate MD [address] [place] [address] Assigned PCP 08/17/22 12/27/22 Alton Alonzo MD [address] [place] [address] Assigned PCP 12/28/22 06/27/23 Nathalie Tate MD [address] [place] [address] Assigned PCP 06/28/23 [facility] [address] [place] [phone] 03/04/24 03/17/24 Sabrina Boss APRN ENGINEER STATION MAINLINE [address] [place] [address] Nurse Practitioner Geriatric Medicine 03/04/24 03/15/24 Rhiannon Newman, RN Lead Health And Wellness Advisor Primary Care - CC 03/05/24 Akash Fitzgerald MD [address] [place] [address] Cardiovascular Disease 03/16/24 Akash Fitzgerald MD [address] [place] [address] Assigned Heart and Vascular Provider 04/11/24 documented as of this encounter
--- OUTSIDE RECORDS SUMMARY | 2024-06-16 04:54 | XMS_ITS | Encounter Summary ---
Author Organization [place] Address [address] [place] [address] Care Team Providers Care Delivery Route Driver Name Role Phone Nathalie Tate MD Unavailable [phone] Nathalie Tate MD Primary Care Provider [phone] [facility] Unavailable Sabrina Boss APRN DISTILLERY MANAGER Unavailable [phone] Reason for Visit * Reason Comments RECHECK Encounter Details Date Type Department Care Team (Late st Contact Info) Description 03/08/2024 9:30 AM CDT Transitional Care Unit Visit [facility] [address] [place] [address] Sabrina Boss APRN DISTILLERY MANAGER [address] [place] [address] Orthostatic hypotension (Primary Dx); Nausea and vomiting, unspecified vomiting type; Tachycardia; Cognitive impairment; Chronic kidney disease, stage 3a (H); History of CVA (cerebrovascular accident); Abnormal MRA, head; Chronic anemia; History of anemia due to vitamin B12 deficiency; Benign prostatic hyperplasia, unspecified whether lower urinary tract symptoms present; Alcoholic fatty liver; History of alcohol use; Vitamin D deficiency; Depression, unspecified depression type; Anxiety; Insomnia, unspecified type; Physical deconditioning Social History Tobacco Use Types Packs/Day Years [...] Sign Reading Time Taken Comments Blood Pressure 146/61 03/08/2024 10:07 AM CDT Pulse 96 03/08/2024 10:07 AM CDT Temperature 36.7 ??C (98 ??F) 03/08/2024 10:07 AM CDT Respiratory Rate 16 03/08/2024 10:07 AM CDT Oxygen Saturation 97% 03/08/2024 10:07 AM CDT Inhaled Oxygen Concentration - - Weight 71.2 kg (157 lb) 03/08/2024 10:07 AM CDT Height 175.3 cm (5' 9) 03/08/2024 10:07 AM CDT Body Mass Index 23.18 03/08/2024 10:07 AM CDT documented in this encounter Patient Instructions * Patient Instructions* Sabrina Boss APRN CNP - 03/08/2024 9:30 AM CDT Orders Jed Ellis Jasmeet 1955 1) Patient has supply of melatonin in his room- can you have family bring it home and I can order it here? Or if she wants him to use that one here please write order for it and Discontinue my order 2) Ok for melatonin 3 mg at bedtime for insomnia. 3) Update provider if ongoing nausea/vomiting 4) Discontinue lab orders for 03/10 5) Cmp, CBC, vitamin d level 03/09. Diagnosis: nausea with vomiting, vitamin d def 6) Encourage fluids 2L per 24 hours- patient will need reminders Sabrina Boss APRN CNP on 03/08/2024 at 11:41 AM documented in this encounter Progress Notes * Sabrina Boss, AJ DISTILLERY MANAGER - 03/08/2024 9:30 AM CDT [facility] Chief Complaint Patient presents with RECHECK HPI: Jed Alamo is a 68 year old (1955), who is being seen today for an episodic care visit at: [facility] [[id number]]. PMH significant for orthostatic hypotension, dyslipidemia, CVA, alcoholic fatty liver, CKD3, prediabetes, pulmonary nodules, BPH, migraine, cognitive impairment, history of alcohol use in remission, depression, anxiety, insomnia Summary of recent hospitalization: Patient was hospitalized at [facility] from 02/28/2024 to 03/04/2024 for altered mental status, syncope suspected to be due to orthostatic hypotension. Patient presented to the emergency department with altered mental status and syncope while patient was taking a shower. EKG showed sinus rhythm. Laboratory evaluation in the ED significant for creatinine 1.53, ALT 77, hemoglobin 12.1, high-sensitivity troponin 23, alcohol ethyl was less than 0.01. CT head negative for acute intracranial process. CTA head showed short segment moderate to marked narrowing distal left P2, remaining circulation appears normal, neck CTA with no definite hemodynamically significant narrowing throughout majorneck vessels. MRI of brain reveals no acute infarct, mass, mass effect or acute hemorrhage, chronicischemic changes, moderate atrophy. Neurology was consulted due to acute mental status changes, suspect cognition could be related to history of alcohol abuse. Neurology suspects chronic orthostatic hypotension may be related to autonomic neuropathy related to history of chronic alcohol abuse versus paraneoplastic syndrome. Neurology does not believe patient has Parkinson disease as does not haveany nonmotor symptoms and clinical findings of autonomic neuropathy. symptoms consistent with this.Patient was started on Aricept. Stroke neurology also consulted and did not feel P2 stenosis was con tributing to acute issues. No further work up needed. Patient was continued on DIAMOND POLISHER midodrine, started on abdominal binder and compression stockings. Follow up with neurology outpatient. Creatinine improved to baseline. Discharged to [facility] for physical rehabilitation and medical management. Today patient was seen for routine follow-up, with present. She had many concerns regarding nursing care today, which she was able to address with the nurse clearance center manager. Patient reported episode of nausea with emesis overnight. He reports it came on suddenly. He is feeling slightly better this morning, though reports poor appetite and some intermittent nausea. Patient's is concerned that heis dehydrated, noting that some of the drinks on his table that she brought from home have her for several days and they are still not empty. He denies any headaches, vision changes, dysuria/trouble urinating, reports bowels moving regularly. He denies shortness of breath, chest pain. He reports chronic lightheadedness/dizziness. Patient continues to work with therapy. Reviewed facility EMR including medications, recent nursing progress notes, vital signs. Discussed plan of care with nursing. Allergies, and PMH/PSH reviewed in EPIC today. REVIEW OF SYSTEMS: 7 point ROS of systems including Constitutional, Respiratory, Cardiovascular, Gastroenterology, Genitourinary, Musculoskeletal, Psychiatric were all negative except for pertinent positives noted in my HPI. Objective: BP (!) 146/61 Pulse 96 Temp 98 ??F (36.7 ??C) Resp 16 Ht 1.753 m (5' 9) Wt 71.2 kg (157 lb) SpO2 97% BMI 23.18 kg/m?? GENERAL APPEARANCE: Alert, in NAD HEENT: normocephalic, moist mucous membranes, nose without drainage or crusting RESP: respiratory effort normal, no respiratory distress, Lung sounds clear, patient is on RA CV: auscultation of heart done, rate and rhythm regular. ABDOMEN: + bowel sounds, soft, nontender, no grimacing or guarding with palpation. M/S: no lower extremity edema NEURO: cranial nerves 2-12 grossly intact and at patient's baseline; moves extremities freely PSYCH: affect and mood ok Labs done in SNF are in [place] [facility]. Please refer to them using First To File/Care Everywhere. and Recent labs in [facility] reviewed by me today. Assessment/Plan: Syncope suspected to be secondary to orthostatic hypotension Chronic orthostatic hypotension Neurology consulted and suspects chronic orthostatic hypotension may be related to autonomic neuropathy related to history of chronic alcohol abuse versus paraneoplastic syndrome. They do not believepatient has Parkinson disease as does not have any nonmotor symptoms and clinical findings of autonomic neuropathy. Paraneoplastic testing is pending Continues report chronic lightheadedness SBP 116-147 recently Plan: Continue midodrine 2.5 mg BID, hold if SBP>130. Continue compression stockings and abdominal binder. Monitor for signs and symptoms of dizziness/lightheadedness. Monitor orthostatic vitals as needed. Follow-up with neurology per recommendations Nausea with emesis Still reports some upset stomach, reported it was sudden onset Wonder if related to side effect of aricept as was recently started? Bowels are moving, last was yesterday Plan: CBC, Cmp tomorrow. Encourage hydration. Nursing to update provider if additional emesis. Intermittent tachycardia Did not have EKG during most recent hospitalization, last one in 12/2023 was in sinus rhythm TSH 0.46 on 03/01/2024 HR recently 96-108 Wonder if dehydrated? HR sounds regular today Plan: Encourage fluids. CMP, CBC tomorrow. Monitor heart rate. Acute metabolic encephalopathy, resolved Dementia level Cognitive impairment Neurology consulted and suspect cognition could be related to history of alcohol abuse Started on Aricept inpatient [facility] 08/18 Plan: Continue aricpet 5 mg at bedtime. OCCUPATIONAL THERAPY to complete cognitive testing for safedischarge planning. Nursing to assist with cares, meals, medication assistance, activities. Acute kidney injury, resolved Chronic kidney disease stage IIIa Baseline creatinine 1-1.3 recently Creatinine peaked at 1.53 on 02/28/2024, improved with IV fluids Creatinine 1.12 on 03/04/2024 Plan: move CMP to 03/09. Avoid nephrotoxins. Renally dose medications as indicated. History of CVA Marked narrowing of distal left P2 seen on CTA head and neck on 02/28/2024 Patient with history of right basal ganglia stroke with chronic left facial droop, and possible aborted stroke or stroke recrudescence on 12/2023, at that time patient presented with left-sided weakness and slurred speech and received TNK-subsequent MRI was negative for acute stroke Stroke neurology was consulted and recommended no further workup or evaluation Plan: Continue atorvastatin 80 mg at bedtime and aspirin 81 mg daily. Chronic anemia History of B12 deficiency Baseline hemoglobin around 12 Vitamin B12 1058 on 03/01/2024 Hemoglobin 12.2 on 03/04/2024 Plan: CBC as needed. Continue vitamin B12 injections monthly and multivitamin with iron monitor forsigns and symptoms of bleeding. BPH Plan: Continue tamsulosin 0.8 mg at bedtime. Note this medication could contribute to lightheadedness/dizziness and orthostatic hypotension. If ongoing lightheadedness would recommend discontinuation. Monitor symptoms. Alcoholic Fatty liver Ammonia <10 on 02/28/2024 and ALT 77 (mild elevation), alkaline phosphatase 135, AST 21, total bilirubin 0.6 on 02/28/2024 Plan: CMP as needed. History of alcohol use in remission Plan: Continue multivitamin, thiamine 100 mg daily, disulfiram 250 mg daily. Encourage ongoing cessation Vitamin D deficiency No recent result available Plan: Check vitamin D level on 03/09/2022. Continue vitamin D2 1250 mcg every Friday. Depression Anxiety Insomnia Plan: Continue escitalopram 60 mg at bedtime. Monitor mood and symptoms. Consider ACP referral as needed. Physical deconditioning Secondary to acute/ chronic medical conditions as above Patient continues to work with therapy Plan: Encourage participation in physical therapy/occupational therapy for strengthening and deconditioning. Discharge planning per their recommendation. Social work to assist with d/c planning. MED REC REQUIREDPost Medication Reconciliation Status: Medication reconciliation previously completed during another office visit Disclaimer: This note may contain text created using speech-recognition software and may contain unintended word substitutions. Electronically signed by: Sabrina Boss APRN CNP documented in this encounter Plan of Treatment Upcoming Encounters Date Type Department Care Team (Late st Contact Info) Description 06/29/2024 2:45 PM CDT Office Visit [facility] [id number] [place] [address] [address] [place] [phone] Akash Fitzgerald MD [address] [facility] [place], [place] [address] Scheduled Procedures Name Priority Associated Diagnoses Date/Ti me CYSTOURETEROSCOPY, WITH LITH OTRIPSY USING LASER AND URETERAL STENT INSERTION Ureteral stone documented as of this encounter Goals Goal Patient Goal Type Associated Problems Recent Progress Patient-Stated? Author Transportation General On track( 019 3:46 PM METHODS STUDY ANALYST) Yes Nani Sainz LSW Note: Goal Statement: Caregiver will learn of options for transportation and volunteer respite services. Measure of Success: Caregiver will know if options are available. Supportive Steps to Achieve: CC will send resources via text and caregiver will call. Barriers: recently moved home after rehab. Strengths: Caregiver works, just started with adult [employer] services today, 1 Date to Achieve By: January 17, 2019 Patient expressed understanding of goal: caregiver understands. documented as of this encounter Visit Diagnoses Diagnosis Orthostatic hypotension- Primary Nausea and vomiting, unspecified vomiting type Tachycardia Tachycardia, unspecified Cognitive impairment Unspecified persistent mental disorders due to conditions classified elsewhere Chronic kidney disease, stage 3a (H) History of CVA (cerebrovascular accident) Transient ischemic attack (TIA), and cerebral infarction without residual deficits Abnormal MRA, head Nonspecific (abnormal) findings on radiological and other examination of skull and head Chronic anemia Anemia, unspecified History of anemia due to vitamin B12 deficiency Benign prostatic hyperplasia, unspecified whether lower urinary tract symptoms present Alcoholic fatty liver History of alcohol use Vitamin D deficiency Unspecified vitamin D deficiency Depression, unspecified depression type Anxiety Anxiety state, unspecified Insomnia, unspecified type Physical deconditioning Debility, unspecified documented in this encounter Additional Health Concerns Assessment Noted Time PHQ-9 Depression Total Score: 10 022 4:15 PM CDT documented as of this encounter Care Teams Delivery Route Driver Relationship Specialty Start Date End Date Nathalie Tate MD [address] [place] [address] PCP - General Family Medicine 12/09/23 Nathalie Tate MD [address] [place] [address] Assigned PCP 06/28/23 [facility] [id number] [place] [phone] 03/04/24 03/17/24 Sabrina Boss APRN CNP [address] [place] [address] Nurse Practitioner Geriatric Medicine 03/04/24 03/15/24 documented as of this encounter
--- OUTSIDE RECORDS SUMMARY | 2024-06-16 04:54 | XMS_ITS | Encounter Summary ---
Author Organization [place] Address [address] [place] [address] Care Team Providers Care Green Lumber Grader Name Role Phone Alton Alonzo MD Primary Care Provide r Alton Alonzo MD Unavailable Nathalie Tate MD Unavailable [phone] Alton Alonzo MD Unavailable Nathalie Tate MD Unavailable [phone] Nathalie Tate MD Primary Care Provider [phone] [facility] Unavailable Sabrina Boss BONE CHAR KILN OPERATOR DIRECTOR BUSINESS INTELLIGENCE Unavailable [phone] Rhiannon Newman RN Unavailable [phone] IpAkash MD Unavailable [phone] IpAkash MD Unavailable [phone] Encounter Details Date Type Department Care Team (Late st Contact Info) Description 07/19/[address] [facility] [address] [place] [address] [address] [place] [address] Eugenie Amador, DEBORA Social History Tobacco Use Types Packs/Day Years Used Date Smoking Tobacco: Every Day Cigarettes 0.5 54.7 Started: 10/20/1968 Other Smokeless Tobacco: Never Comments:Uses [...] Description 06/29/2024 2:45 PM CDT Office Visit [facility] [address] [facility] [address] [place] [phone] Ip, Akash Escobar MD [address] [place], [place] [address] Scheduled Procedures Name Priority Associated Diagnoses Date/Ti me CYSTOURETEROSCOPY, WITH LITH OTRIPSY USING LASER AND URETERAL STENT INSERTION Ureteral stone documented as of this encounter Goals Goal Patient Goal Type Associated Problems Recent Progress Patient-Stated? Author Transportation General On track( 019 3:46 PM LONGWALL MACHINE OPERATOR HELPER) Yes Nani Sainz LSW Note: Goal [...] Out COVID-19 12/09/2023 12/09/2023 12/09/2023 9:14 PM LONGWALL MACHINE OPERATOR HELPER Rule Out C-difficile 06/08/2024 06/10/2024 024 11:50 AM CDT Assessment Noted Time PHQ-9 Depression Total Score: 11 021 10:09 AM CDT documented as of this encounter Care Teams Green Lumber Grader Relationship Specialty Start Date End Date Alton Alonzo MD [address] , [address] [address] PCP - General 03/14/09 12/08/23 Nathalie Tate MD [address] [place] [address] PCP - General Family Medicine 12/09/23 Alton Alonzo MD [address] , [address] [address] Assigned PCP 02/03/22 08/16/22 Nathalie Tate MD [address] [place] [address] Assigned PCP 08/17/22 12/27/22 Alton Alonzo MD [address], [address] [address] Assigned PCP 12/28/22 06/27/23 Nathalie Tate MD [address] [place] [address] Assigned PCP 06/28/23 [facility] [address] [place] [phone] 03/04/24 03/17/24 Sabrina Boss APRN DIRECTOR BUSINESS INTELLIGENCE [address] [place] [address] Nurse Practitioner Geriatric Medicine 03/04/24 03/15/24 Rhiannon Newman, RN Lead Flight Attendant Ramp Primary Care - CC 03/05/24 Akash Fitzgerald MD [address] [place] [address] Cardiovascular Disease 03/16/24 Akash Fitzgerald MD [address] [place] [address] Assigned Heart and Vascular Provider 04/11/24 documented as of this encounter
--- OUTSIDE RECORDS SUMMARY | 2024-06-16 04:54 | XMS_ITS | Encounter Summary ---
Author Organization [place] Address [address] [place] [address] Care Team Providers Care Shoe Dyer Name Role Phone Alton Alonzo MD Primary Care Provide r Alton Alonzo MD Unavailable Alton Alonzo MD Unavailable Nathalie Tate MD Unavailable [phone] Nathalie Tate MD Unavailable [phone] Alton Alonzo MD Unavailable Nathalie Tate MD Unavailable Nathalie Tate MD Primary Care Provider [facility] Unavailable Sabrina Boss AJ SUPERVISOR CARTOGRAPHY Unavailable [phone] Rhiannon Newman RN Unavailable [phone] IpAkash MD Unavailable [phone] IpAkash MD Unavailable [phone] Encounter Details Date Type Department Care Team (Late st Contact Info) Description 01/22/2021 MyC Medical Advice [facility] [address] [place] [address] Conchita Mayo CMA Social History [...] Description 06/29/2024 2:45 PM CDT Office Visit [facility] [address] [facility] [address] [place] [address] Ip, Akash Escobar MD [address] [place], [place] [address] Scheduled Procedures Name Priority Associated Diagnoses Date/Ti me CYSTOURETEROSCOPY, WITH LITH OTRIPSY USING LASER AND URETERAL STENT INSERTION Ureteral stone documented as of this encounter Goals Goal Patient Goal Type Associated Problems Recent Progress Patient-Stated? Author Transportation General On track( 019 3:46 PM APPLE PACKING HEADER) Yes Nani Sainz LSW Note: Goal Statement: [...] Out COVID-19 12/09/2023 12/09/2023 12/09/2023 9:14 PM APPLE PACKING HEADER Rule Out C-difficile 06/08/2024 06/10/2024 024 11:50 AM CDT Assessment Noted Time PHQ-9 Depression Total Score: 6 09/13/20 19 9:54 AM APPLE PACKING HEADER documented as of this encounter Care Teams Shoe Dyer Relationship Specialty Start Date End Date Alton Alonzo MD [address] [place] [address] PCP - General 03/14/09 12/08/23 Nathalie Tate MD [address] [place] [address] PCP - General Family Medicine 12/09/23 Alton Alonzo MD [address] [place] [address] Assigned PCP 07/23/12 01/26/22 Alton Alonzo MD [address] [place] [address] Assigned PCP 02/03/22 08/16/22 Nathalie Tate MD [address] [place] [address] Assigned PCP 01/27/22 02/02/22 Nathalie Tate MD [address] [place] [address] Assigned PCP 08/17/22 12/27/22 Alton Alonzo MD [address] [place] [address] Assigned PCP 12/28/22 06/27/23 Nathalie Tate MD [address] [place] [address] Assigned PCP 06/28/23 [facility] [address] [place] [phone] 03/04/24 03/17/24 Sabrina Boss APRN CNP [address] [place] [address] Nurse Practitioner Geriatric Medicine 03/04/24 03/15/24 Rhiannon Newman RN Lead Solar Energy Engineer Primary Care - CC 03/05/24 Akash Fitzgerald MD [address] [place] [address] Cardiovascular Disease 03/16/24 Akash Fitzgerald MD [address] [place] [address] Assigned Heart and Vascular Provider 04/11/24 documented as of this encounter
--- OUTSIDE RECORDS SUMMARY | 2024-06-16 04:54 | XMS_ITS | Encounter Summary ---
Author Organization [place] Address [address] [place] [address] Care Team Providers Care Adapted Physical Education Aide Name Role Phone Nathalie Tate MD Unavailable [phone] Nathalie Tate MD Primary Care Provider [phone] [facility] Unavailable Sabrina Boss BOTTOM STEEP TENDER WATCH AND CLOCK MAKER AND REPAIRER Unavailable [phone] Rhiannon Newman RN Unavailable [phone] IpAkash MD Unavailable [phone] Reason for Visit * Reason Comments Geriatrics Tracker Encounter Details Date Type Department Care Team (Late st Contact Info) Description 03/04/2024 Documentation Only [facility] [address] [place] [phone] Starr Winkler, [address] [address] Geriatrics Tracker Social History Tobacco Use Types Packs/Day Years [...] Description 06/29/2024 2:45 PM CDT Office Visit [facility] [address] [facility] [address] [place] [address] Ip, Akash Escobar MD [address] [place] [address] Scheduled Procedures Name Priority Associated Diagnoses Date/Ti me CYSTOURETEROSCOPY, WITH LITH OTRIPSY USING LASER AND URETERAL STENT INSERTION Ureteral stone documented as of this encounter Goals Goal Patient Goal Type Associated Problems Recent Progress Patient-Stated? Author Transportation General On track( 019 3:46 PM WELDER APPRENTICE ARC) Yes Nani Sainz LSW Note: Goal Statement: [...] documented as of this encounter Care Teams Adapted Physical Education Aide Relationship Specialty Start Date End Date Nathalie Tate MD [address] [place] [address] PCP - General Family Medicine 12/09/23 Nathalie Tate MD [address] [place] [address] Assigned PCP 06/28/23 Tc, [facility] [address] [place] [address] 03/04/24 03/17/24 Sabrina Boss APRN WATCH AND CLOCK MAKER AND REPAIRER [address] [place] [address] Nurse Practitioner Geriatric Medicine 03/04/24 03/15/24 Rhiannon Newman, RN Lead Preprint Analyst Primary Care - CC 03/05/24 Akash Fitzgerald MD [address] [facility] [address] [place] [address] Cardiovascular Disease 03/16/24 documented as of this encounter
--- OUTSIDE RECORDS SUMMARY | 2024-06-16 04:54 | XMS_ITS | Encounter Summary ---
Author Organization [place] Address [address] [place] [address] Care Team Providers Care Vice President For Instruction Name Role Phone Alton Alonzo MD Primary Care Provide r Alton Alonzo MD Unavailable Nathalie Tate MD Unavailable [phone] Alton Alonzo MD Unavailable Nathalie Tate MD Unavailable [phone] Nathalie Tate MD Primary Care Provider [phone] [facility] Unavailable Sabrina Boss SALES AND EVENTS COORDINATOR PATROL CAPTAIN Unavailable [phone] Rhiannon Newman RN Unavailable [phone] IpAkash MD Unavailable [phone] IpAkash MD Unavailable [phone] Encounter Details Date Type Department Care Team (Late st Contact Info) Description 07/29/2022 MyC Medical Advice [facility] [address] [place] [address] Felicita Carr CMA Social History Tobacco Use [...] Description 06/29/2024 2:45 PM CDT Office Visit [facility] [address] [facility] [address] [place] [address] Ip, Akash Escobar MD [address] [place], [place] [address] Scheduled Procedures Name Priority Associated Diagnoses Date/Ti me CYSTOURETEROSCOPY, WITH LITH OTRIPSY USING LASER AND URETERAL STENT INSERTION Ureteral stone documented as of this encounter Goals Goal Patient Goal Type Associated Problems Recent Progress Patient-Stated? Author Transportation General On track( 019 3:46 PM HEALTH SCIENCE INSTRUCTOR) Yes Nani Sainz LSW Note: Goal Statement: Caregiver will learn of options for transportation and volunteer respite services. Measure of Success: Caregiver will know if options are available. Supportive Steps to Achieve: CC will send resources via text and caregiver will call. Barriers: recently moved home after rehab. Strengths: Caregiver works, just started with adult day health services today, - Date to Achieve By: January 17, 2019 Patient expressed understanding of goal: caregiver understands. documented as of this encounter Visit Diagnoses Not on filedocumented in this encounter Additional Health Concerns Infection Onset Date Last Indicated Resolved Time Rule Out COVID-19 12/09/2023 12/09/2023 12/09/2023 9:14 PM HEALTH SCIENCE INSTRUCTOR Rule Out C-difficile 06/08/2024 06/10/2024 024 11:50 AM CDT Assessment Noted Time PHQ-9 Depression Total Score: 11 021 10:09 AM CDT documented as of this encounter Care Teams Vice President For Instruction Relationship Specialty Start Date End Date Alton Alonzo MD [address] , [address] [address] PCP - General 03/14/09 12/08/23 Nathalie Tate MD [address] [place] [address] PCP - General Family Medicine 12/09/23 Alton Alonzo MD [address] , [address] [address] Assigned PCP 02/03/22 08/16/22 Nathalie Tate MD [address] [place] [address] Assigned PCP 08/17/22 12/27/22 Alton Alonzo MD [address], [address] [address] Assigned PCP 12/28/22 06/27/23 Nathalie Tate MD [address] [address] Assigned PCP 06/28/23 [facility] [address] [place] [address] 03/04/24 03/17/24 Sabrina Boss APRN PATROL CAPTAIN [facility] [place] [address] Nurse Practitioner Geriatric Medicine 03/04/24 03/15/24 Rhiannon Newman RN Lead Panman Primary Care - CC 03/05/24 Akash Fitzgerald MD [address] [place] [address] Cardiovascular Disease 03/16/24 Akash Fitzgerald MD [address] [place] [address] Assigned Heart and Vascular Provider 04/11/24 documented as of this encounter
--- OUTSIDE RECORDS SUMMARY | 2024-06-16 04:54 | XMS_ITS | Encounter Summary ---
Author Organization [place] Address [address] [place] [address] Care Team Providers Care Director Operating Room Name Role Phone Nathalie Tate MD Unavailable Nathalie Tate MD Primary Care Provider [facility] Unavailable Sabrina Boss APRN GLAZIER STRUCTURAL GLASS Unavailable [phone] Reason for Visit * Reason Comments Clinic Care Coordination - Post Hospital Syncope, hypotension Encounter Details Date Type Department Care Team (Latest Contact Info) Description 03/11/2024 Care Coordination [facility] [address] [address] Nathalie Tate MD [address] [id number] Clinic Care Coordination - Post Hospital (Syncope, hypotension ) Social History Tobacco Use Types Packs/Day Years [...] as of this encounter Progress Notes * Cnochita Mayo CMA - 03/11/2024 3:26 PM CDT Care Coordination Initial Assessment The patient was admitted into [facility] from 02/28/24 for syncope and hypotension.He was discharged on 03/04/24 and was in the TCU from 03/04/24 to 03/10/24 and was informed to follow up with PCP and with neurology. PCP: Nathalie Tate Referral Source: ED/IP List Utilization: Last PCP Appt.: 12/31/23 Health Maintenance Reviewed: Yes Current Medical Health Concerns: Please review patients current medical problem list. Patient/Caregiver Understanding: Yes Medication Management: Method of Taking: Self set up in med box Patient has understanding of regimen and is adherent: Yes Medications Reviewed: Yes Functional Status: Transportation: Family provides transportation SEARCH SPECIALIST/Home Care: No Safety: Last fall reported Current Behavioral Health Concerns: Will review more at hospital follow up visit Patient/Caregiver Understanding: YEs Psychosocial: Living Situation: Lives at home with Porsche Gaps: NA Resources Given: patients states that they are not in need of resources but have questions on medications Plan: I called the patient and his answered. She has some concerns on a medication that the patient was put back on. I was able to get him scheduled for his hospital follow up visit tomorrow with Dr. Tate at 11:45 am. documented in this encounter Plan of Treatment Upcoming Encounters Date Type Department Care Team (Late st Contact Info) Description 06/29/2024 2:45 PM CDT Office Visit [facility] [address] [facility] [address] [place] [address] Ip, Akash Escobar MD [address] [place] [address] Scheduled Procedures Name Priority Associated Diagnoses Date/Ti me CYSTOURETEROSCOPY, WITH LITH OTRIPSY USING LASER AND URETERAL STENT INSERTION Ureteral stone documented as of this encounter Goals Goal Patient Goal Type Associated Problems Recent Progress Patient-Stated? Author Transportation General On track( 019 3:46 PM MONEY MARKET DEALER) Yes Nani Sainz LSW Note: Goal Statement: Caregiver will learn of options for transportation and volunteer respite services. Measure of Success: Caregiver will know if options are available. Supportive Steps to Achieve: CC will send resources via text and caregiver will call. Barriers: recently moved home after rehab. Strengths: Caregiver works, just started with adult [employer] services today, 1 Date to Achieve By: January 17, 2019 Patient expressed understanding of goal: caregiver understands. documented as of this encounter Visit Diagnoses Not on filedocumented in this encounter Additional Health Concerns Assessment Noted Time PHQ-9 Depression Total Score: 10 022 4:15 PM CDT documented as of this encounter Care Teams Director Operating Room Relationship Specialty Start Date End Date Nathalie Tate MD [address] [place] [address] PCP - General Family Medicine 12/09/23 Nathalie Tate MD [address] [place] [address] Assigned PCP 06/28/[address] [phone] 03/04/24 03/17/24 Sabrina Boss APRN GLAZIER STRUCTURAL GLASS [address] [place] [address] Nurse Practitioner Geriatric Medicine 03/04/24 03/15/24 documented as of this encounter
--- OUTSIDE RECORDS SUMMARY | 2024-06-16 04:54 | XMS_ITS | Encounter Summary ---
Author Organization [place] Address [address] [place] [address] Care Team Providers Care Supervisor Pre Wave Name Role Phone Alton Alonzo MD Primary Care Provide r Nani Sainz Unavailable [phone] Alton Alonzo MD Unavailable [facility] Unavailable Alton Alonzo MD Unavailable Nathalie Tate MD Unavailable Nathalie Tate MD Unavailable Alton Alonzo MD Unavailable Nathalie Tate MD Unavailable Nathalie Tate MD Primary Care Provider [facility] Unavailable Sabrina Boss BILINGUAL SOCIAL WORKER JUMPBASTING LINING BASTER Unavailable [phone] Rhiannon Newman RN Unavailable [phone] IpAkash MD Unavailable [phone] Akash Fitzgerald MD Unavailable [phone] Encounter Details Date Type Department Care Team (Late st Contact Info) Description 11/10/2014 MyC Medical Advice [facility] [address] [place] [phone] [facility] Social History Tobacco Use Types Packs/Day Years [...] 06/29/2024 2:45 PM CDT Office Visit [facility] [address] [facility] [address] [place] [phone] Ip, Akash Escobar MD [address] [place], [place] [address] Scheduled Procedures Name Priority Associated Diagnoses Date/Ti me CYSTOURETEROSCOPY, WITH LITH OTRIPSY USING LASER AND URETERAL STENT INSERTION Ureteral stone documented as of this encounter Visit Diagnoses Not on filedocumented in this encounter Additional Health Concerns Infection Onset Date Last Indicated Resolved Time Rule Out COVID-19 12/09/2023 12/09/2023 12/09/2023 9:14 PM CONTINUOUS DRIER OPERATOR Rule Out C-difficile 06/08/2024 06/10/2024 024 11:50 AM CDT documented as of this encounter Care Teams Supervisor Pre Wave Relationship Specialty Start Date End Date Alton Alonzo MD [address], [address] [address] PCP - General 03/14/09 12/08/23 Nathalie Tate MD [address] [place] [address] PCP - General Family Medicine 12/09/23 Nani Sainz LSW Lead Side Piece Coverer Primary Care - CC 10/15/1801/06 Alton Alonzo MD [address], [address] [address] Assigned PCP 07/23/12 01/26/22 [facility] [place] 05/18/19 07/01/19 Alton Alonzo MD [address], [address] [address] Assigned PCP 02/03/22 08/16/22 Nathalie Tate MD [address], [place] [address] Assigned PCP 01/27/22 02/02/22 Nathalie Tate MD [address], [place] [address] Assigned PCP 08/17/22 12/27/22 Alton Alonzo MD [address] [address] Assigned PCP 12/28/22 06/27/23 Nathalie Tate MD [address], [place] [address] Assigned PCP 06/28/23 [facility] [address] [place] [address] 03/04/24 03/17/24 Sabrina Boss APRN JUMPBASTING LINING BASTER 70[address] [place] [address] Nurse Practitioner Geriatric Medicine 03/04/24 03/15/24 Rhiannon Newman, RN Lead Side Piece Coverer Primary Care - CC 03/05/24 Akash Fitzgerald MD 6405 [facility] [address] [place] [address] Cardiovascular Disease 03/16/24 Akash Fitzgerald MD [address] [place] [address] Assigned Heart and Vascular Provider 04/11/24 documented as of this encounter
--- OUTSIDE RECORDS SUMMARY | 2024-06-16 04:54 | XMS_ITS | Encounter Summary ---
Author Organization [place] Address [address] [place] [address]. [place] [address] Care Team Providers Care Stereo Map Plotter Operator Name Role Phone Nathalie Tate MD Unavailable [phone] Nathalie Tate MD Primary Care Provider [phone] [facility] Unavailable Sabrina Boss APRN SPECIAL MAKEUP FX ARTIST INSTRUCTOR Unavailable [phone] Encounter Details Date Type Department Care Team (Latest Contact Info) Description 03/10/2024 Travel Social History Tobacco Use Types Packs/Day [...] Description 06/29/2024 2:45 PM CDT Office Visit [address] [place] [address] Akash Fitzgerald MD [address] [facility] [address] [place] [address] Scheduled Procedures Name Priority Associated Diagnoses Date/Ti me CYSTOURETEROSCOPY, WITH LITH OTRIPSY USING LASER AND URETERAL STENT INSERTION Ureteral stone documented as of this encounter Goals Goal Patient Goal Type Associated Problems Recent Progress Patient-Stated? Author Transportation General On track( 019 3:46 PM MODULAR HOME CREW MEMBER) Yes Nani Sainz LSW Note: Goal Statement: [...] documented as of this encounter Care Teams Stereo Map Plotter Operator Relationship Specialty Start Date End Date Nathalie Tate MD [address] [place] [address] PCP - General Family Medicine 12/09/23 Nathalie Tate MD [address] [place] [address] Assigned PCP 06/28/23 [facility] [id number] [place] [phone] 03/04/24 03/17/24 Sabrina Boss APRN SPECIAL MAKEUP FX ARTIST INSTRUCTOR [address] [place] [address] Nurse Practitioner Geriatric Medicine 03/04/24 03/15/24 documented as of this encounter
--- OUTSIDE RECORDS SUMMARY | 2024-06-16 04:54 | XMS_ITS | Encounter Summary ---
Author Organization [place] Address [address] [place] [address] Care Team Providers Care Shafting Cleaner Name Role Phone Alton Alonzo MD Primary Care Provide r Nani Sainz Unavailable [phone] Alton Alonzo MD Unavailable [facility] Unavailable Alton Alonzo MD Unavailable Nathalie Tate MD Unavailable Nathalie Tate MD Unavailable Alton Alonzo MD Unavailable Nathalie Tate MD Unavailable [phone] Nathalie Tate MD Primary Care Provider [facility] Unavailable Sabrina Boss ARTIFICIAL SNOW MAKING MACHINE OPERATOR HYDROELECTRIC PLANT TECHNICIAN Unavailable [phone] Rhiannon Newman RN Unavailable IpAkash MD Unavailable [phone] Akash Fitzgerald MD Unavailable [phone] Encounter Details Date Type Department Care Team (Late st Contact Info) Description 08/09/2015 MyC Medical Advice [facility] [address] [place] [phone] [facility] Social History Tobacco Use Types Packs/Day Years [...] Description 06/29/2024 2:45 PM CDT Office Visit [facility] [address] [facility] [address] [place] [phone] Ip, Akash Escobar MD [address] [place] [address] Scheduled Procedures Name Priority Associated Diagnoses Date/Ti me CYSTOURETEROSCOPY, WITH LITH OTRIPSY USING LASER AND URETERAL STENT INSERTION Ureteral stone documented as of this encounter Visit Diagnoses Not on filedocumented in this encounter Additional Health Concerns Infection Onset Date Last Indicated Resolved Time Rule Out COVID-19 12/09/2023 12/09/2023 12/09/2023 9:14 PM FIELD TRAINING AGENT Rule Out C-difficile 06/08/2024 06/10/2024 024 11:50 AM CDT Assessment Noted Time PHQ-9 Depression Total Score: 10 015 7:17 AM CDT documented as of this encounter Care Teams Shafting Cleaner Relationship Specialty Start Date End Date Alton Alonzo MD [address] , [address] [place] [address] PCP - General 03/14/09 12/08/23 Nathalie Tate MD [address] [place] [address] PCP - General Family Medicine 12/09/23 Nani Sainz, AIRLINE RESERVATIONIST Lead Threader Primary Care - CC 10/15/1801/06 Alton Alonzo MD [facility] [address] [place] [address] Assigned PCP 07/23/12 01/26/22 [facility] 05/18/19 07/01/19 Alton Alonzo MD [address] [place] [address] Assigned PCP 02/03/22 08/16/22 Nathalie Tate MD [address] [place] [address] Assigned PCP 01/27/22 02/02/22 Nathalie Tate MD [address] [place] [address] Assigned PCP 08/17/22 12/27/22 Alton Alonzo MD [address] [place] [address] Assigned PCP 12/28/22 06/27/23 Nathalie Tate MD [address] [place] [address] Assigned PCP 06/28/[address] [phone] 03/04/24 03/17/24 Sabrina BossAJ HYDROELECTRIC PLANT TECHNICIAN [facility] [facility] [address] Nurse Practitioner Geriatric Medicine 03/04/24 03/15/24 Rhiannon Newman, RN Lead Threader Primary Care - CC 03/05/24 Akash Fitzgerald MD [address] [place] [address] Cardiovascular Disease 03/16/24 Akash Fitzgerald MD [address] [place] [address] Assigned Heart and Vascular Provider 04/11/24 documented as of this encounter
--- OUTSIDE RECORDS SUMMARY | 2024-06-16 04:54 | XMS_ITS | Encounter Summary ---
Author Organization [place] Address [address] [place] [address] Care Team Providers Care Gas Fitter Name Role Phone Alton Alonzo MD Primary Care Provide r Alton Alonzo MD Unavailable [phone] Alton Alonzo MD Unavailable Nathalie Tate MD Unavailable [phone] Nathalie Tate MD Unavailable [phone] Alton Alonzo MD Unavailable Nathalie Tate MD Unavailable [phone] Nathalie Tate MD Primary Care Provider [facility] Unavailable Sabrina Boss AJ COMMUNITY PLANNER Unavailable [phone] Rhiannon Newman RN Unavailable [phone] IpAkash MD Unavailable [phone] Akash Fitzgerald MD Unavailable [phone] Encounter Details Date Type Department Care Team [...] Description 06/29/2024 2:45 PM CDT Office Visit [facility] [address] [facility] [address] [place] [phone] Ip, Akash Escobar MD [address] [place] [address] Scheduled Procedures Name Priority Associated Diagnoses Date/Ti me CYSTOURETEROSCOPY, WITH LITH OTRIPSY USING LASER AND URETERAL STENT INSERTION Ureteral stone documented as of this encounter Goals Goal Patient Goal Type Associated Problems Recent Progress Patient-Stated? Author Transportation General On track( 019 3:46 PM COMMERCIAL HVAC SERVICE TECHNICIAN) Yes Nani Sainz LSW Note: Goal Statement: [...] Out COVID-19 12/09/2023 12/09/2023 12/09/2023 9:14 PM COMMERCIAL HVAC SERVICE TECHNICIAN Rule Out C-difficile 06/08/2024 06/10/2024 024 11:50 AM CDT Assessment Noted Time PHQ-9 Depression Total Score: 6 09/13/20 19 9:54 AM COMMERCIAL HVAC SERVICE TECHNICIAN documented as of this encounter Care Teams Gas Fitter Relationship Specialty Start Date End Date Alton Alonzo MD [address] , [address] [place] [address] PCP - General 03/14/09 12/08/23 Nathalie Tate MD [address] [facility] [place] [address] PCP - General Family Medicine 12/09/23 Alton Alonzo MD [address] , [address] [place] [address] Assigned PCP 07/23/12 01/26/22 Alton Alonzo MD [address], [address] [address] Assigned PCP 02/03/22 08/16/22 Nathalie Tate MD [address] [address] Assigned PCP 01/27/22 02/02/22 Nathalie Tate MD [address] [address] Assigned PCP 08/17/22 12/27/22 Alton Alonzo MD [address], [address] [place] [address] Assigned PCP 12/28/22 06/27/23 Nathalie Tate MD [address] [place] [address] Assigned PCP 06/28/23 Tcu, [facility] [address] [facility] [phone] 03/04/24 03/17/24 Sabrina Boss APRN COMMUNITY PLANNER 1700 [place] [address] Nurse Practitioner Geriatric Medicine 03/04/24 03/15/24 Rhiannon Newman, RN Lead Maintenance Construction Helper Primary Care - CC 03/05/24 Akash Fitzgerald MD [address] [place] [address] Cardiovascular Disease 03/16/24 Akash Fitzgerald MD [address] [place] [address] Assigned Heart and Vascular Provider 04/11/24 documented as of this encounter
--- OUTSIDE RECORDS SUMMARY | 2024-06-16 04:54 | XMS_ITS | Encounter Summary ---
Author Organization [place] Address [address] [place] [address] Care Team Providers Care Rn Review Name Role Phone Nathalie Tate MD Unavailable [phone] Nathalie Tate MD Primary Care Provider [phone] [facility] Unavailable Sabrina Boss PLATE MOLDER WINDOW CLERK Unavailable Rhiannon Newman RN Unavailable [phone] Ip, Akash Escobar MD Unavailable [phone] Ip, Akash Escobar MD Unavailable [phone] Encounter Details Date Type Department Care Team (Late st Contact Info) Description 12/29/2023 MyC Medical Advice [facility] [address] [place] [phone] Conchita Maoy CMA Social History Tobacco Use Types Packs/Day [...] PM CDT Office Visit [facility] [address] [facility] [address] [place] [phone] Amilcar, Akash Escobar MD [address] [place] [address] Scheduled Procedures Name Priority Associated Diagnoses Date/Ti me CYSTOURETEROSCOPY, WITH LITH OTRIPSY USING LASER AND URETERAL STENT INSERTION Ureteral stone documented as of this encounter Goals Goal Patient Goal Type Associated Problems Recent Progress Patient-Stated? Author Transportation General On track( 019 3:46 PM VENDING SERVICE TECHNICIAN) Yes Nani Sainz LSW Note: [...] documented as of this encounter Care Teams Rn Review Relationship Specialty Start Date End Date Nathalie Tate MD [address] [place] [address] PCP - General Family Medicine 12/09/23 Nathalie Tate MD [address], [place] [address] Assigned PCP 06/28/23 [facility] [address] [place] [phone] 03/04/24 03/17/24 Sabrina Boss APRN WINDOW CLERK [address] [place] [address] Nurse Practitioner Geriatric Medicine 03/04/24 03/15/24 Rhiannon Newman RN Lead Instrument Tester Primary Care - CC 03/05/24 Akash Fitzgerald MD [address] [place] [address] Cardiovascular Disease 03/16/24 Akash Fitzgerald MD [address] [place] [address] Assigned Heart and Vascular Provider 04/11/24 documented as of this encounter
--- OUTSIDE RECORDS SUMMARY | 2024-06-16 04:54 | XMS_ITS | Encounter Summary ---
Author Organization [place] Address [address] [place] [address] Care Team Providers Care Sales Service Coordinator Name Role Phone Alton Alonzo MD Primary Care Provide r Nani Sainz Unavailable [phone] Alton Alonzo MD Unavailable [facility] Unavailable Alton Alonzo MD Unavailable Nathalie Tate MD Unavailable [phone] Nathalie Tate MD Unavailable [phone] Alton Alonzo MD Unavailable Nathalie Tate MD Unavailable [phone] Nathalie Tate MD Primary Care Provider [facility] Unavailable Sabrina Boss INSTITUTE SCIENTIST RETURNER Unavailable [phone] Rhiannon Newman RN Unavailable [phone] IpAkash MD Unavailable IpAkash MD Unavailable [phone] Reason for Visit * Reason Onset Date Comments CD Outpatient 08/04/2017 Encounter Details Date Type Department Care Team (Late st Contact Info) Description 08/04/2017 Telephone [facility] Behavioral Health Intake [address] [place] [phone] Generic, Behavioral IntakeMD CD Outpatient Social History Tobacco Use Types Packs/Day [...] CD Phase I appointments for client at [facility] Please arrange to cancel all future mixed IOP CD Phase I appointments for the above client at the [facility] location effective immediately. Client has been DC'd from program. [id number]. Thanks CLAYTON Aldana documented in this encounter Plan of Treatment Upcoming Encounters Date Type Department Care Team ([facility] Contact Info) Description 06/29/2024 2:45 PM CDT Office Visit [facility] [address] [facility] [address] [place] [address] Akash Fitzgerald MD [address] [place], [place] [id number] Scheduled Procedures Name Priority Associated Diagnoses Date/Ti me CYSTOURETEROSCOPY, WITH LITH OTRIPSY USING LASER AND URETERAL STENT INSERTION Ureteral stone documented as of this encounter Visit Diagnoses Not on filedocumented in this encounter Additional Health Concerns Infection Onset Date Last Indicated Resolved Time Rule Out COVID-19 12/09/2023 12/09/2023 12/09/2023 9:14 PM ACCOUNTS PAYABLE ASSISTANT Rule Out C-difficile 06/08/2024 06/10/2024 024 11:50 AM CDT Assessment Noted Time PHQ-9 Depression Total Score: 1 03/21/20 17 7:13 AM CDT documented as of this encounter Care Teams Sales Service Coordinator Relationship Specialty Start Date End Date Alton Alonzo MD [address] , [address] [address] PCP - General 03/14/09 12/08/23 Nathalie Tate MD [address] [place] [address] PCP - General Family Medicine 12/09/23 Nani Sainz LSW Lead Dining Room Maid Primary Care - CC 10/15/1801/06 Alton Alonzo MD [address] [address] Assigned PCP 07/23/12 01/26/22 [facility] ([facility] ([place]) 05/18/19 07/01/19 Alton Alonzo MD [address] , [address] [address] Assigned PCP 02/03/22 08/16/22 Nathalie Tate MD [address] [place] [address] Assigned PCP 01/27/22 02/02/22 Nathalie Tate MD [address] [place] [address] Assigned PCP 08/17/22 12/27/22 Alton Alonzo MD [address] [place] [address] Assigned PCP 12/28/22 06/27/23 Nathalie Tate MD [address] [place] [address] Assigned PCP 06/28/23 [facility] [address] [place] [phone] 03/04/24 03/17/24 Sabrina Boss APRN CNP [address] [place] [address] Nurse Practitioner Geriatric Medicine 03/04/24 03/15/24 Rhiannon Newman, RN Lead Dining Room Maid Primary Care - CC 03/05/24 Akash Fitzgerald MD [address] [place] [address] Cardiovascular Disease 03/16/24 Akash Fitzgerald MD [address] [place] [address] Assigned Heart and Vascular Provider 04/11/24 documented as of this encounter
--- OUTSIDE RECORDS SUMMARY | 2024-06-16 04:54 | XMS_ITS | Encounter Summary ---
Author Organization [place] Address [address] [place] [address] Care Team Providers Care Commodities Clerk Name Role Phone Alton Alonzo MD Primary Care Provide r Nani Sainz Unavailable [phone] Alton Alonzo MD Unavailable [facility] Unavailable [phone] Alton Alonzo MD Unavailable Nathalie Tate MD Unavailable [phone] Nathalie Tate MD Unavailable [phone] Alton Alonzo MD Unavailable [phone] Nathalie Tate MD Unavailable [phone] Nathalie Tate MD Primary Care Provider [facility] Unavailable Sabrina Boss BACK CLOSER FILM AND VIDEO GRAPHICS DESIGNER Unavailable [phone] Rhiannon Newman RN Unavailable [phone] Ip, Akash Escobar MD Unavailable IpAkash MD Unavailable [phone] Reason for Visit * Reason Onset Date Comments CD Outpatient 03/24/2015 Other Encounter Details Date Type Department Care Team (Late st Contact Info) Description 03/24/2015 Telephone [facility] Behavioral Health Intake [address] [place] [address] Generic, Behavioral Intake, CD Outpatient Social History Tobacco Use Types [...] left counselor VM that client has entered [facility] treatment and she failed to call and let us know. CLAYTON Aldana * Telephone Encounter - Indira Chen - 05/22/2015 3:57 PM CDT ----- Message from CLAYTON Suggs sent at 05/22/2015 3:46 PM CDT ----- Regarding: Please schedule for Phase I in [place] Please schedule client for 20 sessions for Phase I in [place] starting tonight 05/22 at 5:30pm. Ly Quinn * Telephone Encounter - Ninfa Mirza - 05/15/2015 3:10 PM CDT ----- Message from CLAYTON Cruz sent at 05/15/2015 12:41 PM CDT ----- Regarding: orientation Please schedule client for orientation on Friday05/17/15 @ [facility] [place], no cert needed. * Telephone Encounter [...] Legal issues. Hx of CD [place] at [place] 2002. A: CD evaluation. HX of Depression Medication: Citalopram R: Eval 04/10/15 @ 5:00p [place]. JT documented in this encounter Plan of Treatment Upcoming Encounters Date Type Department Care Team (Late st Contact Info) Description 06/29/2024 2:45 PM CDT Office Visit [facility] [address] [facility] [address] [place] [phone] Ip, Akash Escobar MD [address] [facility] [address] [place], [place] [address] Scheduled Procedures Name Priority Associated Diagnoses Date/Ti me CYSTOURETEROSCOPY, WITH LITH OTRIPSY USING LASER AND URETERAL STENT INSERTION Ureteral stone documented as of this encounter Visit Diagnoses Not on filedocumented in this encounter Additional Health Concerns Infection Onset Date Last Indicated Resolved Time Rule Out COVID-19 12/09/2023 12/09/2023 12/09/2023 9:14 PM C JAVA DEVELOPER Rule Out C-difficile 06/08/2024 06/10/2024 024 11:50 AM CDT documented as of this encounter Care Teams Commodities Clerk Relationship Specialty Start Date End Date Alton Alonzo MD [address], [id number] [place] [address] PCP - General 03/14/09 12/08/23 Nathalie Tate MD [address] [place] [address] PCP - General Family Medicine 12/09/23 GianNani shaffer, FINANCIAL SERVICES PROFESSIONAL Lead New Car Make Ready Worker Primary Care - CC 10/15/1801/06 Alton Alonzo MD [address] [place] [address] Assigned PCP 07/23/12 01/26/22 [facility] ([facility] ([place]) 05/18/19 07/01/19 Alton Alonzo MD [address] [place] [address] Assigned PCP 02/03/22 08/16/22 Nathalie Tate MD [facility] [address] [place] [place] [address] Assigned PCP 01/27/22 02/02/22 Nathalie Tate MD [address] [place] [place] [address] Assigned PCP 08/17/22 12/27/22 Alton Alonzo MD [address] [place] [address] Assigned PCP 12/28/22 06/27/23 Nathalie Tate MD [facility] [address] [place] [place] [address] Assigned PCP 06/28/[address] [address] 03/04/24 03/17/24 Sabrina Boss APRN CNP [address] [place] [address] Nurse Practitioner Geriatric Medicine 03/04/24 03/15/24 Rhiannon Newman RN Lead New Car Make Ready Worker Primary Care - CC 03/05/24 Akash Fitzgerald MD [address] [place] [address] Cardiovascular Disease 03/16/24 Akash Fitzgerald MD [address] [place] [address] Assigned Heart and Vascular Provider 04/11/24 documented as of this encounter
--- OUTSIDE RECORDS SUMMARY | 2024-06-16 04:54 | XMS_ITS | Encounter Summary ---
Author Organization [place] Address [address] [place] [address] Care Team Providers Care Plastic Fabricator Name Role Phone Alton Alonzo MD Primary Care Provide r Alton Alonzo MD Unavailable [phone] Alton Alonzo MD Unavailable Nathalie Tate MD Unavailable Nathalie Tate MD Unavailable [phone] Alton Alonzo MD Unavailable Nathalie Tate MD Unavailable [phone] Nathalie Tate MD Primary Care Provider [facility] Unavailable Sabrina Boss AJ LIQUID COMPOUNDER Unavailable [phone] Rhiannon Newman RN Unavailable [phone] IpAkash MD Unavailable [phone] Akash Fitzgerald MD Unavailable [phone] Encounter Details Date Type Department Care Team [...] 2:45 PM CDT Office Visit [facility] [address] [facility] [address] [place] [phone] Ip, Akash Escobar MD [address] [place] [address] Scheduled Procedures Name Priority Associated Diagnoses Date/Ti me CYSTOURETEROSCOPY, WITH LITH OTRIPSY USING LASER AND URETERAL STENT INSERTION Ureteral stone documented as of this encounter Goals Goal Patient Goal Type Associated Problems Recent Progress Patient-Stated? Author Transportation General On track( 019 3:46 PM CAKE ICER AND PACKER) Yes Nani Sainz LSW Note: Goal Statement: [...] Out COVID-19 12/09/2023 12/09/2023 12/09/2023 9:14 PM CAKE ICER AND PACKER Rule Out C-difficile 06/08/2024 06/10/2024 024 11:50 AM CDT Assessment Noted Time PHQ-9 Depression Total Score: 6 09/13/20 19 9:54 AM CAKE ICER AND PACKER documented as of this encounter Care Teams Plastic Fabricator Relationship Specialty Start Date End Date Alton Alonzo MD [address] , [address] [place] [address] PCP - General 03/14/09 12/08/23 Nathalie Tate MD [address] [place] [address] PCP - General Family Medicine 12/09/23 Alton Alonzo MD [address] , [address] [place] [address] Assigned PCP 07/23/12 01/26/22 Alton Alonzo MD [address], [address] [address] Assigned PCP 02/03/22 08/16/22 Nathalie Tate MD [address] [place] [address] Assigned PCP 01/27/22 02/02/22 Nathalie Tate MD [address] [place] [address] Assigned PCP 08/17/22 12/27/22 Alton Alonzo MD [address], [address] [place] [address] Assigned PCP 12/28/22 06/27/23 Nathalie Tate MD [address] [place] [address] Assigned PCP 06/28/23 [facility] [address] [place] [phone] 03/04/24 03/17/24 Sabrina Boss APRN LIQUID COMPOUNDER [address] [place] [address] Nurse Practitioner Geriatric Medicine 03/04/24 03/15/24 Rhiannon Newman, RN Lead Embossing Unit Operator Primary Care - CC 03/05/24 Akash Fitzgerald MD [address] [place] [address] Cardiovascular Disease 03/16/24 Akash Fitzgerald MD [address] [place] [address] Assigned Heart and Vascular Provider 04/11/24 documented as of this encounter
--- OUTSIDE RECORDS SUMMARY | 2024-06-16 04:54 | XMS_ITS | Encounter Summary ---
Author Organization [facility] Address [address] [place] [address]. [place] [address] Care Team Providers Care Clinical Pharmacologist Name Role Phone Nathalie Tate MD Unavailable [phone] Nathalie Tate MD Primary Care Provider [phone] [facility] Unavailable Sabrina Boss APRN LABORER POULTRY HATCHERY Unavailable [phone] Encounter Details Date Type Department Care Team (Latest Contact Info) Description 03/08/2024 Travel Social History Tobacco Use Types Packs/Day [...] Description 06/29/2024 2:45 PM CDT Office Visit [address] [place] [address] Akash Fitzgerald MD [address] [facility] [address] [place] [address] Scheduled Procedures Name Priority Associated Diagnoses Date/Ti me CYSTOURETEROSCOPY, WITH LITH OTRIPSY USING LASER AND URETERAL STENT INSERTION Ureteral stone documented as of this encounter Goals Goal Patient Goal Type Associated Problems Recent Progress Patient-Stated? Author Transportation General On track( 019 3:46 PM VTC TECHNICIAN) Yes Nani Sainz LSW Note: Goal [...] documented as of this encounter Care Teams Clinical Pharmacologist Relationship Specialty Start Date End Date Nathalie Tate MD [address] [place] [address] PCP - General Family Medicine 12/09/23 Nathalie Tate MD [address] [place] [address] Assigned PCP 06/28/23 [facility] [id number] [place] [phone] 03/04/24 03/17/24 Sabrina Boss APRN LABORER POULTRY HATCHERY [address] [place] [address] Nurse Practitioner Geriatric Medicine 03/04/24 03/15/24 documented as of this encounter
--- OUTSIDE RECORDS SUMMARY | 2024-06-16 04:54 | XMS_ITS | Encounter Summary ---
Author Organization [facility] Address [address] [place] [address] Care Team Providers Care Acid Strength Inspector Name Role Phone Nathalie Tate MD Unavailable [phone] Nathalie Tate MD Primary Care Provider [phone] [facility] Unavailable Sabrina Boss APRN SOURCE WATER PROTECTION SPECIALIST Unavailable [phone] Reason for Visit * Reason Comments Discharge Summary Skilled Nursing Encounter Details Date Type Department Care Team (Late st Contact Info) Description 03/10/2024 10:30 AM CDT Transitional Care Unit Visit [facility] [address] [place] [address] Sabrina Boss APRN SOURCE WATER PROTECTION SPECIALIST [address] [place] [address] Orthostatic hypotension (Primary Dx); Cognitive impairment; Chronic kidney disease, stage 3a (H); History of CVA (cerebrovascular accident); Abnormal MRA, head; Chronic anemia; History of anemia due to vitamin B12 deficiency; Benign prostatic hyperplasia, unspecified whether lower urinary tract symptoms present; Alcoholic fatty liver; Elevated transaminase level; History of alcohol use; Weight loss; History of vitamin D deficiency; Depression, unspecified depression type; Anxiety; Insomnia, unspecified type; Physical deconditioning; Hypotension, unspecified hypotension type Social History Tobacco Use Types Packs/Day [...] Sign Reading Time Taken Comments Blood Pressure 150/83 03/10/2024 8:03 AM CDT Pulse 71 03/10/2024 8:03 AM CDT Temperature 36.2 ??C (97.2 ??F) 03/10/2024 8:03 AM CD T Respiratory Rate 18 03/10/2024 8:03 AM CDT Oxygen Saturation 96% 03/10/2024 8:03 AM CDT Inhaled Oxygen Concentration - - Weight 68.9 kg (151 lb 12.8 oz) 03/10/2024 8:03 AM CDT Height 175.3 cm (5' 9) 03/10/2024 8:03 AM CDT Body Mass Index 22.42 03/10/2024 8:03 AM CDT documented in this encounter Patient Instructions * Patient Instructions* Sabrina Boss, AJ SOURCE WATER PROTECTION SPECIALIST - 03/10/2024 10:30 AM CDT [facility] Discharge Orders Name: Jed Alamo : 1955 Planned Discharge Date: 03/13/2024 Discharged to: home with spouse MEDICAL FOLLOW UP Follow up with PCP in 1 week and follow up with neurology for further evaluation outpatient FUTURE LABS: CMP 03/17 with results to PCP ORDER CHANGES: Discontinued vitamin d2 due to elevated level. Consider restarting 1000 international unit(s) dailyin the fall again, or have repeat level in a few months to decide on further supplementation Was started on aricept inpatient, looks like it is listed as an allergy in EPIC due to history of severe diarrhea with dehydration, also had nausea in the TCU- which could be related to the medication, so it was discontinued in the TCU. Consider restarting after further discussion with PCP. DISCHARGE MEDICATIONS: The patient???s pharmacy is authorized to dispense a 30-day supply of medications. Refill requests should be directed to the primary provider, Nathalie Tate Current Outpatient Medications Medication Sig Dispense Refill [...] 3 phenylephrine (LEATHA-SYNEPHRINE) 1 % nasal spray [place]pit[place] 1 drop into both nostrils daily as needed for congestion tamsulosin (FLOMAX) 0.4 MG capsule Take 0.8 mg by mouth every evening thiamine (B-1) 100 MG tablet Take 100 mg by mouth every evening SERVICES: Home Care: Occupational Therapy, Physical Therapy, Registered Nurse, and Home Health Aide ADDITIONAL INSTRUCTIONS: Apply abdominal binder for orthostatic hypotension when awake, ok to remove when sleeping Compression stockings on in AM, off in PM Check blood pressure prior to administering midodrine to ensure SBP is less than 130 Sabrina Boss APRN CNP This document was electronically signed on March 11, 2024 documented in this encounter Progress Notes * Sabrina Boss APRN CNP - 03/10/2024 10:30 AM CDTFormatting of this note is different from the [facility] G[facility] DISCHARGE SUMMARY PATIENT'S NAME: Jed Alamo DATE OF : 1955 Place of Service where encounter took place: [facility] [[id number]] PRIMARY CARE PROVIDER AND CLINIC RESPONSIBLE AFTER TRANSFER: Nathalie Tate MD, [address] / [facility] [address] [facility] Provider Transferring providers: Sabrina Boss, AJ GERONIMO, Marizol Hernandez MD Recent Hospitalization/ED: [facility] Hospital stay 02/28/2024 to 03/04/2024. Date of SNF Admission: March 04, 2024 Date of SNF (anticipated) Discharge: March 13, 2024 Discharged to: home with Cognitive Scores: SLUMS: 08/18; refused to complete CPT Physical Function: Ambulating 200 feet with 2 wheeled walker standby assist, completed 6 stairs, standby assist with 2 wheeled walker for transfers and standby assist for bed mobility, set up for eating and grooming/hygiene, independent for upper body dressing, standing tolerance of 2 minutes, lower body dressing contact-guard assist set up for shoes, toileting and showering contact-guard assist CODE STATUS/ADVANCE DIRECTIVES DISCUSSION: Full code ALLERGIES: Donepezil and Sulfa antibiotics NURSING FACILITY COURSE Medication Changes/Rationale: Discontinued vitamin d2 due to elevated level. Consider restarting 1000 international unit(s) dailyin the fall again, or have repeat level in a few months to decide on further supplementation Was started on aricept inpatient, looks like it is listed as an allergy in EPIC due to history of severe diarrhea with dehydration, also had nausea in the TCU- which could be related to the medication, so it was discontinued in the TCU. Consider restarting after further discussion with PCP. PMH significant for orthostatic hypotension, dyslipidemia, CVA, alcoholic fatty liver, CKD3, prediabetes, pulmonary nodules, BPH, migraine, cognitive impairment, history of alcohol use in remission, depression, anxiety, insomnia Summary of recent hospitalization: Patient was hospitalized at [facility] from 02/28/2024 to 03/04/2024 for altered mental [...] work up needed. Patient was continued on CHANGE HOUSE ATTENDANT midodrine, started on abdominal binder and compression stockings. Follow up with neurology outpatient. Creatinine improved to baseline. Discharged to TCU for physical rehabilitation and medical management Summary of nursing facility stay: Patient was seen today for discharge evaluation. Patient with flat affect, pretty disengaged throughout visit today. Patient facing away from me in bed, did not want to reposition. He tells me that his nausea resolved, he had no further emesis. Also verified this with nursing staff reported no further episodes of emesis or ongoing nausea. He denies any stomach pain. He denies dysuria/trouble urinating. His bowels are moving regularly, he denies shortness of breath, chest pain. Found to have a nasal spray at bedside from home supply, which I explained to patient that he cannot self administer medications and gave it to the nursing staff. Spoke to patient's over the phone, reviewed plan of care, as well as discharge instructions including follow-up with primary provider in 1 week. Alsoher and answered her questions regarding midodrine and his blood pressures. They have a cuff at home and she plans to check it before administering his medication. Specific problems addressed in the TCU: Syncope suspected to be secondary to orthostatic hypotension Chronic orthostatic hypotension Neurology consulted and suspects chronic orthostatic hypotension may be related to autonomic neuropathy related to history of chronic alcohol abuse versus paraneoplastic syndrome. They do not believepatient has Parkinson disease as does not have any nonmotor symptoms and clinical findings of autonomic neuropathy. Paraneoplastic testing is negative Continues report chronic lightheadedness SBP 105-150, has been refusing to get out of bed and laying in bed majority of the time- has received midodrine about 50% of the time recently Plan: Continue midodrine 2.5 mg BID, hold if SBP>130. Continue compression stockings and abdominal binder. Monitor for signs and symptoms of dizziness/lightheadedness. Monitor orthostatic vitals as needed. Follow-up with neurology per recommendations Nausea with emesis, resolved Wonder if related to side effect of aricept as was recently started? Resolved and last x1 day and Aricept was held Plan: Monitor for recurrence Intermittent tachycardia at time of nausea, now resolved Did not have EKG during most recent hospitalization, last one in 12/2023 was in sinus rhythm TSH 0.46 on 03/01/2024 Now resolved and HR 67-91 recently HR sounds regular today Plan: Monitor heart rate. Acute metabolic encephalopathy, resolved Dementia level Cognitive impairment Neurology consulted and suspect cognition could be related to history of alcohol abuse Started on Aricept inpatient and held due to upset stomach and nausea SLUMS 08/18, declined CPT Plan: Ok to restart aricpet 5 mg at bedtime. Monitor for s/s of nausea and if reoccur consider stopping Acute kidney injury, resolved Chronic kidney disease stage IIIa Baseline creatinine 1-1.3 recently Creatinine peaked at 1.53 on 02/28/2024, improved with IV fluids Creatinine 1.12 on 03/09/2024 Plan: BMP PRN Avoid nephrotoxins. Renally dose medications as indicated. [...] recommend discontinuation. Monitor symptoms. Alcoholic Fatty liver Mild elevation of AST and ALT on 03/09/2024 ALT 108 (mild elevation), alkaline phosphatase 139, AST 60, total bilirubin 0.4 on 03/09/2024 Plan: CMP 03/17 through home care to ensure improvement History of alcohol use in remission Plan: Continue multivitamin, thiamine 100 mg daily, disulfiram 250 mg daily. Encourage ongoing cessation Weight loss Lost 6 lb in the TCU, with poor intakes at meals per nursing Plan: Monitor weight and intakes. Follow-up with PCP outpatient. History of Vitamin D deficiency Vitamin d level elevated to 74, so vitamin d discontinued in the TCU Plan: Consider restarting in the fall or recheck level in a few months. Depression Anxiety Insomnia Plan: Continue escitalopram 60 mg at bedtime. Monitor mood and symptoms. Follow up with PCP. Physical deconditioning Secondary to acute/ chronic medical conditions as above Patient completed course of therapy in the TCU Plan: Continue therapy through home care Discharge Medications: MED REC REQUIRED Post Medication Reconciliation Status: Medication reconciliation previously completed during another office visit Current Outpatient Medications Medication Sig Dispense Refill [...] every evening midodrine (PROAMATINE) 2.5 MG tablet Take 1 tablet (2.5 mg) by mouth 2 times daily (Patient taking differently: Take 2.5 mg by mouth 2 times daily At 8AM and 2PM. Hold if SBP>130) Multiple Vitamins-Iron (TAB-A-CATRACHO/IRON) TABS Take 1 capsule by mouth daily 100 tablet 3 phenylephrine (LEATHA-SYNEPHRINE) 1 % nasal spray Milpitas 1 drop into both nostrils daily as needed for congestion tamsulosin (FLOMAX) 0.4 MG capsule Take 0.8 mg by mouth every evening thiamine (B-1) 100 MG tablet Take 100 mg by mouth every evening Past Medical History: Past Medical History: Diagnosis Date ALCOHOL ABUSE, IN REMISSION AA weekly Arthritis Chronic kidney disease Eczema ED (erectile dysfunction) HTN (hypertension), benign 2003 Hyperlipidemia 2005 Prediabetes 2008 Physical Exam: Vitals: BP (!) 150/83 Pulse 71 Temp 97.2 ??F (36.2 ??C) Resp 18 Ht 1.753 m (5' 9) Wt 68.9 kg (151 lb 12.8 oz) SpO2 96% BMI 22.42 kg/m?? BMI: Body mass index is 22.42 kg/m??. GENERAL APPEARANCE: Alert, frail in NAD HEENT: normocephalic, moist mucous membranes, nose without drainage or crusting RESP: respiratory effort normal, no respiratory distress, Lung sounds clear, patient is on RA CV: auscultation of heart done, rate and rhythm regular. ABDOMEN: abdominal exam limited as patient not facing me and declined to reposition for better examhowever with + bowel sounds, soft, nontender, no grimacing or guarding with palpation. M/S: no lower extremity edema NEURO: normal speech, moves extremities freely PSYCH: affect flat and patient withdrawn during visit today SNF labs: Labs done in SNF are in [facility]. Please refer to them using [employer] Everywhere. and Recent labs in [facility] reviewed by me today. DISCHARGE PLAN: Follow up labs: [facility] 03/17 with results to PCP Medical Follow Up: Follow up with PCP in 1 week and follow up with neurology for further evaluationoutpatient Discharge Services: Home Care: Occupational Therapy, Physical Therapy, Registered Nurse, and Home Health Aide Discharge Instructions: Apply abdominal binder for orthostatic hypotension when awake, ok to remove when sleeping Compression stockings on in AM, off in PM Check blood pressure prior to administering midodrine to ensure SBP is less than 130 TOTAL DISCHARGE TIME: Greater than 30 minutes Electronically signed by: Sabrina Boss APRN SOURCE WATER PROTECTION SPECIALIST Documentation of Face to Face and Certification for Home Health Services I certify that patient: Jed Alamo is under my care and that I, or a nurse practitioner or physician's podiatrist assistant working with me, had a [id number] encounter that meets the physician [id number] encounter requirements with this patient on: 03/11/2024. This encounter with the patient was in whole, or in part, for the following medical condition, which is the primary reason for home health care: 1. Orthostatic hypotension 2. Cognitive impairment 3. Chronic kidney disease, stage 3a (H) 4. History of CVA (cerebrovascular accident) 5. Abnormal MRA, head 6. Chronic anemia 7. History of anemia due to vitamin B12 deficiency 8. Benign prostatic hyperplasia, unspecified whether lower urinary tract symptoms present 9. Alcoholic fatty liver 10. Elevated transaminase level 11. History of alcohol use 12. Weight loss 13. History of vitamin D deficiency 14. Depression, unspecified depression type 15. Anxiety 16. Insomnia, unspecified type 17. Physical deconditioning 18. Hypotension, unspecified hypotension type I certify that, based on my findings, the following services are medically necessary home health services: Nursing, Occupational Therapy, Physical Therapy, and APPROVER . My clinical findings support the need for the above services because: Nurse is needed: to provide medication management and check CMP 03/17 with results to PCP, Occupational Therapy Services are needed to assess and treat cognitive ability and address ADL safety due to impairment in completing ADLs safely and independently as he returns home with his from TCU stay. and Physical Therapy Services are needed to assess and treat the following functional impairments: generalized weakness and deconditioning. Further, I certify that my clinical findings support that this patient is homebound (i.e. absences from home require considerable and taxing effort and are for medical reasons or confucianism services or infrequently or of short duration when for other reasons) because: Requires assistance of another person or specialized equipment to access medical services because patient: Requires supervision of another for safe transfer... Based on the above findings. I certify that this patient is confined to the home and needs intermittent half-way care, physical therapy and/or speech therapy. The patient is under my care, Kaycee have initiated the establishment of the plan of care. This patient will be followed by a physician who will periodically review the plan of care. Physician/Provider to provide follow up care: Nathalie Tate APRN CNP on 03/11/2024 at 3:00 PM documented in this encounter Plan of Treatment Upcoming Encounters Date Type Department Care Team (Late st Contact Info) Description 06/29/2024 2:45 PM CDT Office Visit [facility] [address] [place] [phone] Akash Fitzgerald MD [address] [place] [address] Scheduled Procedures Name Priority Associated Diagnoses Date/Ti me CYSTOURETEROSCOPY, WITH LITH OTRIPSY USING LASER AND URETERAL STENT INSERTION Ureteral stone documented as of this encounter Goals Goal Patient Goal Type Associated Problems Recent Progress Patient-Stated? Author Transportation General On track( 019 3:46 PM MULTICRAFT OPERATOR) Yes Nani Sainz LSW Note: Goal [...] encounter Visit Diagnoses Diagnosis Orthostatic hypotension- Primary Cognitive impairment Unspecified persistent mental disorders due [...] urinary tract symptoms present Alcoholic fatty liver Elevated transaminase level Nonspecific elevation of levels of transaminase or lactic acid dehydrogenase (LDH) History of alcohol use Weight loss Loss of weight History of vitamin D deficiency Personal history of nutritional deficiency Depression, unspecified depression type Anxiety Anxiety state, unspecified Insomnia, unspecified type Physical deconditioning Debility, unspecified Hypotension, unspecified hypotension type documented in this encounter Additional Health Concerns Assessment Noted Time PHQ-9 Depression Total Score: 10 022 4:15 PM CDT documented as of this encounter Care Teams Acid Strength Inspector Relationship Specialty Start Date End Date Nathalie Tate MD [address] [place] [address] PCP - General Family Medicine 12/09/23 Nathalie Tate MD [address] [place] [address] Assigned PCP 06/28/[address] [id number] 03/04/24 03/17/24 Sabrina Boss APRN SOURCE WATER PROTECTION SPECIALIST [address] [place] [address] Nurse Practitioner Geriatric Medicine 03/04/24 03/15/24 documented as of this encounter
--- OUTSIDE RECORDS SUMMARY | 2024-06-16 04:54 | XMS_ITS | Encounter Summary ---
Author Organization [facility] Address [address] [place] [address] Care Team Providers Care Seater Assembler Name Role Phone Alton Alonzo MD Primary Care Provide r Alton Alonzo MD Unavailable [phone] Alton Alonzo MD Unavailable Nathalie Tate MD Unavailable Nathalie Tate MD Unavailable Alton Alonzo MD Unavailable Nathalie Tate MD Unavailable [phone] Nathalie Tate MD Primary Care Provider [phone] [facility] Unavailable Sabrina Boss AJ INDUSTRIAL COFFEE GRINDER Unavailable [phone] Rhiannon Newman RN Unavailable [phone] IpAkash MD Unavailable [phone] Akash Fitzgerald MD Unavailable [phone] Encounter Details Date Type Department Care Team [...] Description 06/29/2024 2:45 PM CDT Office Visit [facility] [address] [place] [phone] Ip, Akash Escobar MD [address] [place] [address] Scheduled Procedures Name Priority Associated Diagnoses Date/Ti me CYSTOURETEROSCOPY, WITH LITH OTRIPSY USING LASER AND URETERAL STENT INSERTION Ureteral stone documented as of this encounter Goals Goal Patient Goal Type Associated Problems Recent Progress Patient-Stated? Author Transportation General On track( 019 3:46 PM ELECTRICAL RESEARCH ENGINEER) Yes Nani Sainz LSW Note: Goal [...] Out COVID-19 12/09/2023 12/09/2023 12/09/2023 9:14 PM ELECTRICAL RESEARCH ENGINEER Rule Out C-difficile 06/08/2024 06/10/2024 024 11:50 AM CDT Assessment Noted Time PHQ-9 Depression Total Score: 6 09/13/20 19 9:54 AM ELECTRICAL RESEARCH ENGINEER documented as of this encounter Care Teams Seater Assembler Relationship Specialty Start Date End Date Alton Alonzo MD [address] , [address] [place] [address] PCP - General 03/14/09 12/08/23 Nathalie Tate MD [address] [place] [address] PCP - General Family Medicine 12/09/23 Alton Alonzo MD [address] , [address] [place] [address] Assigned PCP 07/23/12 01/26/22 Alton Alonzo MD [address] [address] [address] Assigned PCP 02/03/22 08/16/22 Nathalie Tate MD [address] [address] Assigned PCP 01/27/22 02/02/22 Nathalie Tate MD [address] [address] Assigned PCP 08/17/22 12/27/22 Alton Alonzo MD [address], [address] [place] [address] Assigned PCP 12/28/22 06/27/23 Nathalie Tate MD [address] [address] Assigned PCP 06/28/23 Tcu, [facility] [address] [facility] [phone] 03/04/24 03/17/24 Sabrina Boss APRN INDUSTRIAL COFFEE GRINDER [address] [place] [address] Nurse Practitioner Geriatric Medicine 03/04/24 03/15/24 Rhiannon Newman, RN Lead Double Reamer Operator Primary Care - CC 03/05/24 Akash Fitzgerald MD [address] [place] [address] Cardiovascular Disease 03/16/24 Akash Fitzgerald MD [address] [place] [address] Assigned Heart and Vascular Provider 04/11/24 documented as of this encounter
--- OUTSIDE RECORDS SUMMARY | 2024-06-16 04:54 | XMS_ITS | Encounter Summary ---
Author Organization [place] Address [address] [place] [address] Care Team Providers Care Rubber Tubing Backer Name Role Phone Alton Alonzo MD Primary Care Provide r Nani Sainz Unavailable [phone] Alton Alonzo MD Unavailable [phone] [facility] Unavailable Alton Alonzo MD Unavailable Nathalie Tate MD Unavailable [phone] Nathalie Tate MD Unavailable [phone] Alton Alonzo MD Unavailable Nathalie Tate MD Unavailable [phone] Nathalie Tate MD Primary Care Provider [phone] [facility] Unavailable Sabrina Boss RECORD CENTER SPECIALIST HOT BRAIDER Unavailable [phone] Rhiannon Newman RN Unavailable IpAkash MD Unavailable [phone] Akash Fitzgerald MD Unavailable [phone] Encounter Details Date Type Department Care Team (Late st Contact Info) Description 06/20/2015 Scan Legal Document [facility]icians [address] [place] [address] Alton Alonzo MD [address] [address] Social History Tobacco Use Types Packs/Day Years [...] Description 06/29/2024 2:45 PM CDT Office Visit [facility] [address] [facility] [address] [place] [address] Ip, Akash Escobar MD [address] [facility] [address] [place] [address] Scheduled Procedures Name Priority Associated Diagnoses Date/Ti me CYSTOURETEROSCOPY, WITH LITH OTRIPSY USING LASER AND URETERAL STENT INSERTION Ureteral stone documented as of this encounter Visit Diagnoses Not on filedocumented in this encounter Additional Health Concerns Infection Onset Date Last Indicated Resolved Time Rule Out COVID-19 12/09/2023 12/09/2023 12/09/2023 9:14 PM CHIEF TECHNOLOGIST Rule Out C-difficile 06/08/2024 06/10/2024 024 11:50 AM CDT documented as of this encounter Care Teams Rubber Tubing Backer Relationship Specialty Start Date End Date Alton Alonzo MD [address] , [address] [address] PCP - General 03/14/09 12/08/23 Nathalie Tate MD [address] [place] [address] PCP - General Family Medicine 12/09/23 Nani Sainz, SCHOOL ADJUSTMENT COUNSELOR Lead Supply Room Clerk Primary Care - CC 10/15/1801/06 Alton Alonzo MD [facility] [address] [place] [address] Assigned PCP 07/23/12 01/26/22 [facility] [place] 05/18/19 07/01/19 Alton Alonzo MD [address] [place] [address] Assigned PCP 02/03/22 08/16/22 Nathalie Tate MD [address] [place] [address] Assigned PCP 01/27/22 02/02/22 Nathalie Tate MD [address] [place] [address] Assigned PCP 08/17/22 12/27/22 Alton Alonzo MD [facility] [address] [place] [address] Assigned PCP 12/28/22 06/27/23 Nathalie Tate MD [address] [place] [address] Assigned PCP 06/28/[address] [phone] 03/04/24 03/17/24 Sabrina Boss APRN CNP [address] [facility] [place] [address] Nurse Practitioner Geriatric Medicine 03/04/24 03/15/24 Rhiannon Newman, RN Lead Supply Room Clerk Primary Care - CC 03/05/24 Akash Fitzgerald MD [address] [place] [address] Cardiovascular Disease 03/16/24 Akash Fitzgerald MD [address] [place] [address] Assigned Heart and Vascular Provider 04/11/24 documented as of this encounter
--- OUTSIDE RECORDS SUMMARY | 2024-06-16 04:54 | XMS_ITS | Encounter Summary ---
Author Organization [place] Address [address] [place] [address] Care Team Providers Care Salesperson Terrazzo Tiles Name Role Phone Alton Alonzo MD Primary Care Provide r Nani Sainz Unavailable [phone] Alton Alonzo MD Unavailable [facility] Unavailable Alton Alonzo MD Unavailable Nathalie Tate MD Unavailable Nathalie Tate MD Unavailable [phone] Alton Alonzo MD Unavailable Nathalie Tate MD Unavailable Nathalie Tate MD Primary Care Provider [facility] Unavailable Sabrina Boss TERRAZZO FINISHER WATCH DIAL STONER Unavailable [phone] Rhiannon Newman RN Unavailable [phone] Ip, Akash Escobar MD Unavailable IpAkash MD Unavailable Reason for Visit * Reason Onset Date Comments Outreach 07/01/2018 [email or web address] Encounter Details Date Type Department Care Team (Late st Contact Info) Description 07/01/2018 MyC Medical Advice [facility] [address] [place] [address] Eugenie Amador CMA Outreach ([email or web address]) Social History Tobacco Use Types Packs/Day Years Used Date Smoking Tobacco: Every Day Cigarettes 0.5 54.7 Started: 10/20/1969 Smokeless Tobacco: Never Alcohol Use [...] Description 06/29/2024 2:45 PM CDT Office Visit [facility] [address] [place] [address] [address] [place] [address] Ip, Akash Escobar MD [address] [place], [place] [address] Scheduled Procedures Name Priority Associated Diagnoses Date/Ti me CYSTOURETEROSCOPY, WITH LITH OTRIPSY USING LASER AND URETERAL STENT INSERTION Ureteral stone documented as of this encounter Visit Diagnoses Not on filedocumented in this encounter Additional Health Concerns Infection Onset Date Last Indicated Resolved Time Rule Out COVID-19 12/09/2023 12/09/2023 12/09/2023 9:14 PM OIL INSPECTOR Rule Out C-difficile 06/08/2024 06/10/2024 024 11:50 AM CDT Assessment Noted Time PHQ-9 Depression Total Score: 14 018 7:14 AM CDT documented as of this encounter Care Teams Salesperson Terrazzo Tiles Relationship Specialty Start Date End Date Alton Alonzo MD [address] , [address] [address] PCP - General 03/14/09 12/08/23 Nathalie Tate MD [address] [place] [address] PCP - General Family Medicine 12/09/23 Nani Sainz, [facility] [place] Lead High School Computer Science Teacher Primary Care - CC 10/15/1801/06 Alton Alonzo MD [address] [place] [address] Assigned PCP 07/23/12 01/26/22 [facility] [place] 05/18/19 07/01/19 Alton Alonzo MD [address] [place] [address] Assigned PCP 02/03/22 08/16/22 Nathalie Tate MD [address] [address] Assigned PCP 01/27/22 02/02/22 Nathalie Tate MD [address] [place] [address] [address] Assigned PCP 08/17/22 12/27/22 Alton Alonzo MD [address] [address] Assigned PCP 12/28/22 06/27/23 Nathalie Tate MD [address] [place] [address] Assigned PCP 06/28/23 [facility] [address] [place] [phone] 03/04/24 03/17/24 Sabrina Boss APRN WATCH DIAL STONER [address] [place] [address] Nurse Practitioner Geriatric Medicine 03/04/24 03/15/24 Rhiannon Newman, RN Lead High School Computer Science Teacher Primary Care - CC 03/05/24 Akash Fitzgerald MD [address] [place] [address] Cardiovascular Disease 03/16/24 Akash Fitzgerald MD [address] [place] [address] Assigned Heart and Vascular Provider 04/11/24 documented as of this encounter
--- OUTSIDE RECORDS SUMMARY | 2024-06-16 04:54 | XMS_ITS | Encounter Summary ---
Author Organization [place] Address [address] [place] [address] Care Team Providers Care Career Development Counselor Name Role Phone Alton Alonzo MD Primary Care Provide r Alton Alonzo MD Unavailable Alton Alonzo MD Unavailable Nathalie Tate MD Unavailable [phone] Nathalie Tate MD Unavailable Alton Alonzo MD Unavailable Nathalie Tate MD Unavailable Nathalie Tate MD Primary Care Provider [facility] Unavailable Sabrina Boss AJ VOCAL ARTIST Unavailable [phone] Rhiannon Newman RN Unavailable [phone] IpAkash MD Unavailable [phone] IpAkash MD Unavailable [phone] Encounter Details Date Type Department Care Team (Late st Contact Info) Description 07/14/2020 Orders Only [facility] Physicians [address] [place] [phone] Lizzy Good MA Progressive cognitive dysfunction Social [...] Description 06/29/2024 2:45 PM CDT Office Visit [facility] [address] [facility] [address] [place] [phone] Ip, Akash Escobar MD [address] [facility] [address] [place] [address] Scheduled Procedures Name Priority Associated Diagnoses Date/Ti me CYSTOURETEROSCOPY, WITH LITH OTRIPSY USING LASER AND URETERAL STENT INSERTION Ureteral stone documented as of this encounter Goals Goal Patient Goal Type Associated Problems Recent Progress Patient-Stated? Author Transportation General On track( 019 3:46 PM TRAUMA DOCTOR) Yes Nani Sainz LSW Note: Goal Statement: [...] Procedure Name Priority Date/Time Associated Diagnosis Comments [facility] MRI BRAIN WO&W CONTRAST Routine 07/14/2020 Progressive cognitive dysfunction documented in this encounter Results * C MRI BRAIN WO&W CONTRAST (07/14/2020) Anatomical Region Laterality Modality Other Narrative 07/14/2020 [facility] Phone: [phone] * Fax: [phone] [address] [address], [place] [address] [place] [address] Age: 64 Y Dept No.: [id number] JED ALAMO : 1955 Chart # Gender: M Anayq. Phys: Alton Alonzo MD Clinic MRN: Clinic: [facility] Acc#: [id number] Exam: MRI BRAIN WITHOUT AND WITH CONTRAST Exam Date: 07/14/2020 EXAM: MRI BRAIN WITHOUT AND WITH CONTRAST LOCATION: [facility] DATE/TIME: 07/14/2020 9:54 AM INDICATION: Progressive [...] WITHOUT AND WITH CONTRAST Exam Date: 07/14/2020 JED ALAMO : 1955 Age: 64 Y Acc#: [id number] Performed by: EDENILSON Transcribed By: ANANYA on: 07/14/2020 11:07 AM CDT Finalized By: GLADYS MEAD M.D. on: 07/14/2020 11:11 AM CDT Dictated By: GLADYS MEAD M.D. Signed by: KPK Page 2 of 2 Alton Alonzo MD SPECIAL IMAGI NG STUDIES documented in this encounter Visit Diagnoses Diagnosis Progressive cognitive dysfunction Unspecified persistent mental disorders due to conditions classified elsewhere documented in this encounter Additional Health Concerns Infection Onset Date Last Indicated Resolved Time Rule Out COVID-19 12/09/2023 12/09/2023 12/09/2023 9:14 PM TRAUMA DOCTOR Rule Out C-difficile 06/08/2024 06/10/2024 024 11:50 AM CDT Assessment Noted Time PHQ-9 Depression Total Score: 6 09/13/20 19 9:54 AM TRAUMA DOCTOR documented as of this encounter Care Teams Career Development Counselor Relationship Specialty Start Date End Date Alton Alonzo MD [address] , [address] [address] PCP - General 03/14/09 12/08/23 Nathalie Tate MD [address] [place] [address] PCP - General Family Medicine 12/09/23 Alton Alonzo MD [address] [address] Assigned PCP 07/23/12 01/26/22 Alton Alonzo MD [address] , [address] [address] Assigned PCP 02/03/22 08/16/22 Nathalie Tate MD [address] [place] [address] Assigned PCP 01/27/22 02/02/22 Nathalie Tate MD [address] [place] [address] Assigned PCP 08/17/22 12/27/22 Alton Alonzo MD [address] [address] Assigned PCP 12/28/22 06/27/23 Nathalie Tate MD [address] [place] [address] Assigned PCP 06/28/23 [facility] [address] [place] [address] 03/04/24 03/17/24 Sabrina Boss APRN VOCAL ARTIST [address] [place] [address] Nurse Practitioner Geriatric Medicine 03/04/24 03/15/24 Rhiannon Newman, RN Lead Aircraft Engine Dismantler Primary Care - CC 03/05/24 Akash Fitzgerald MD [address] [place] [address] Cardiovascular Disease 03/16/24 kAash Fitzgerald MD [address] [place] [address] Assigned Heart and Vascular Provider 04/11/24 documented as of this encounter
--- OUTSIDE RECORDS SUMMARY | 2024-06-16 04:55 | XMS_ITS ---
Author Organization [place] Address [address] [place] [address] Care Team Providers Care Admitted Attorneys Name Role Phone Nathalie Tate MD Unavailable [phone] Nathalie Tate MD Primary Care Provider [phone] Ip, Akash Escobar MD Unavailable [phone] IpAkash MD Unavailable [phone] Primary Care Care Coordination Status:Closed (Closed) Start date:03/05/2024 End date:03/19/2024 Close reason:Not a candidate Overview Error Continued Care and Services Coordination
--- OUTSIDE RECORDS SUMMARY | 2024-06-16 04:55 | XMS_ITS | Encounter Summary ---
Author Organization [place] Address [address] [place] [address] Care Team Providers Care Manager Public Name Role Phone Alton Alonzo MD Primary Care Provide r Nani Sainz Unavailable [phone] Alton Alonzo MD Unavailable [phone] [facility] Unavailable Alton Alonzo MD Unavailable Nathalie Tate MD Unavailable Nathalie Tate MD Unavailable Alton Alonzo MD Unavailable Nathalie Tate MD Unavailable Nathalie Tate MD Primary Care Provider [phone] [facility] Unavailable Sabrina Boss TOOL AND DIE ASSEMBLER ELECTRICAL AND RADIO MECHANIC Unavailable [phone] Rhiannon Newman RN Unavailable IpAkash MD Unavailable [phone] Akash Fitzgerald MD Unavailable [phone] Encounter Details Date Type Department Care Team (Late st Contact Info) Description 06/20/2011 MyC Medical Advice [facility] [address] [place] [phone] [facility] Insomnia, unspecified Social History Tobacco Use Types [...] 06/29/2024 2:45 PM CDT Office Visit [facility] [address] [facility] [address] [place] [phone] Ip, Akash Escobar MD [address] [place], [place] [address] Scheduled Procedures Name Priority Associated Diagnoses Date/Ti me CYSTOURETEROSCOPY, WITH LITH OTRIPSY USING LASER AND URETERAL STENT INSERTION Ureteral stone documented as of this encounter Visit Diagnoses Diagnosis Insomnia, unspecified documented in this encounter Additional Health Concerns Infection Onset Date Last Indicated Resolved Time Rule Out COVID-19 12/09/2023 12/09/2023 12/09/2023 9:14 PM CPR AMBULANCE DRIVER Rule Out C-difficile 06/08/2024 06/10/2024 024 11:50 AM CDT documented as of this encounter Care Teams Manager Public Relationship Specialty Start Date End Date Alton Alonzo MD [address] , [id number] [place] [address] PCP - General 03/14/09 12/08/23 Nathalie Tate MD [address] [place] [address] PCP - General Family Medicine 12/09/23 Gianfredyarmando Nani, [facility] Lead Project Manager/Design Manager Primary Care - CC 10/15/1801/06 Alton Alonzo MD [address] [place] [address] Assigned PCP 07/23/12 01/26/22 [facility] ([place] 05/18/19 07/01/19 Alton Alonzo MD [address] [address] Assigned PCP 02/03/22 08/16/22 Nathalie Tate MD [address], [place] [address] Assigned PCP 01/27/22 02/02/22 Nathalie Tate MD [address], [place] [address] Assigned PCP 08/17/22 12/27/22 Alton Alonzo MD [address] [address] Assigned PCP 12/28/22 06/27/23 Nathalie Tate MD [address] [place] [address] Assigned PCP 06/28/23 emil [facility] [address] [facility] [place] [address] 03/04/24 03/17/24 Sabrina Boss APRN ELECTRICAL AND RADIO MECHANIC [address]00 [place] [address] Nurse Practitioner Geriatric Medicine 03/04/24 03/15/24 Rhiannon Newman RN Lead Project Manager/Design Manager Primary Care - CC 03/05/24 Akash Fitzgerald MD [address] [place] [address] Cardiovascular Disease 03/16/24 Akash Fitzgerald MD [address] [place] [address] Assigned Heart and Vascular Provider 04/11/24 documented as of this encounter
--- OUTSIDE RECORDS SUMMARY | 2024-06-16 04:55 | XMS_ITS | Clinical Summary ---
Author Organization [facility] Address [address], [place] [address] Care Team Providers Care Loss Prevention Lead Name Role Phone Kory Delgado MD Primary Care Provider [phone] Source Comments You are receiving this document as you are listed as the primary care provider,follow-up provider, or the patient has been referred to you for consultation.This is in compliance with the Medicare and[facility] EHR Incentive Program,which states Providers who transition their patient to another setting of careor provider of care or refers their patient to another provider of care shouldprovide summary care record for each transition of care or referral. Car Throttle Allergies Active Allergy Reactions Criticality Noted Date [...] 12/27/2020 Active Vitamin D, Ergocalciferol, 1.25 MG (85934 UT) CAPS Take 1 Capsule by mouth [...] mg by mouth daily. 12/28/2020 Active cyanocobalamin (BQADRYPX15) 1000 MCG/ML injection Inject 1 mL intramuscularly daily. 10/28/2020 Activ e Active Problems Problem Noted Date Diagnosed Date Substance induced mood disorder 09/10/2018 Alcohol use disorder, severe, dependence 018 Moderate episode of recurrent major depressive d isorder 09/10/2018 Myasthenia gravis without exacerbation 8 Overview (06/11/2017): LW Modifier: ocular ; Myasthenia Gravis NOS Tobacco use disorder 03/17/2008 Overview (06/11/2017): LW Modifier: 10/21 ppd LW Onset: 1973 ; Tobacco Abuse Hyperlipidemia 10/31/2004 Alcohol dependence in remission 10/25/2004 Overview (06/11/2017): LW Modifier: quit 10/21 ; Alcohol Dependence Remission Essential hypertension 03/26/2003 Overview (06/11/2017): Hypertension Migraine 03/26/2003 Overview (06/11/2017): Migraine Without Aura Resolved Problems Problem Noted Date Diagnosed Date Resolved Date Anxiety state 10/25/2004 03/17/2008 Overview (06/11/2017): LW Onset: ; Anxiety NOS Immunizations Name Administration Dates Next Due Influenza IIV4 (Quadrivalent ) 0.5mL (65297) 09/10/2018(Deferred: Patient Refused) Td 11/19/2003 Social History [...] 36.7 ??C (98 ??F) 09/13/2018 7:00 AM BRIDGE TOLL COLLECTOR Respiratory Rate 16 09/13/2018 7:00 AM BRIDGE TOLL COLLECTOR Oxygen Saturation 97% 09/13/2018 7:00 AM BRIDGE TOLL COLLECTOR Inhaled Oxygen Concentration - - Weight 68.4 [...] (3 - season) 2023 01/22/2021, 01/01/2021 Influenza (#1) 2024 07/27/2020, 08/21, 10/10/2018, Additional history exists DTaP/Tdap/Td (3 - Tdap) 12/09/2028 12/09/19, 03/12/2012, 11/19/2003 Zoster/Shingles Completed 12/16/2019, 10/17/2019 HepA [...] LDL (IF NEEDED) Routine 09/24/2007 9:05 AM BRIDGE TOLL COLLECTOR PROSTATIC SPECIFIC ANTIGEN (DIAGNOSTIC F/U) Routine 05/06/2007 10:25 AM CDT from Last 3 Months or Most Recently Relevant to Health Maintenance Results * (ABNORMAL) Lipid Panel and Direct LDL(If Needed) (09/24/2007 9:05 AM BRIDGE TOLL COLLECTOR) Hours Fasting 12.0 Hours HP CONVERSION Cholesterol/HDL Ratio Screen 2.9 No normal range HP CONVERSION Cholesterol 219(H) <200 mg/dL HP CONVERSION HDL Cholesterol 76 >40 mg/dL HP CONVERSION Triglycerides 137 0 - 149 mg/dL HP CONVERSION LDL Calculated 116 0 - 130 mg/dL HP CONVERSION Comment: 09/24/2007 9:05 AM BRIDGE TOLL COLLECTOR Harvey Alonzo MD LAB_1 HP CONVERSION * Prostatic Specific Antigen (F/U) [...] 12:03 AM 09/13/2018 2:15 PM Care Teams Loss Prevention Lead Relationship Specialty [place] [address] [address] [place] [address] PCP - General Family Practice 02/08/22
--- OUTSIDE RECORDS SUMMARY | 2024-06-16 04:55 | XMS_ITS | Clinical Summary ---
Author Organization [facility] Address [place], [place] [address] Care Team Providers Care Production Inspector Name Role Phone Alton Alonzo MD Primary [...] Comments Blood Pressure 118/70 11/06/2018 2:11 PM CUSTOMER EQUIPMENT ENGINEER Pulse 75 11/06/2018 2:11 PM CUSTOMER EQUIPMENT ENGINEER Temperature 36.4 ??C (97.6 ??F) 11/06/2018 2:11 PM CS T Respiratory Rate 15 11/06/2018 2:11 PM CUSTOMER EQUIPMENT ENGINEER Oxygen Saturation 99% 11/06/2018 2:11 PM CUSTOMER EQUIPMENT ENGINEER Inhaled Oxygen Concentration - - Weight 73.8 kg (162 lb 9.6 oz) 10/18/2018 7:00 A M CUSTOMER EQUIPMENT ENGINEER Height 177.8 cm (5' 10) 10/08/2018 2:28 PM CUSTOMER EQUIPMENT ENGINEER Body Mass Index 23.33 10/08/2018 2:28 PM CUSTOMER EQUIPMENT ENGINEER Plan of Treatment Health Maintenance Due Date [...] Code Status Discussion: Not Discussed Care Teams Production Inspector Relationship Specialty Start Date End Date Alton Alonzo MD PCP - General Family Practice 10/08/18
--- OUTSIDE RECORDS SUMMARY | 2024-06-16 04:55 | XMS_ITS | Data Portability ---
Author Organization [facility], [facility] Address [address] [facility] [address] [place] [address] Care Team Providers Care Employee Development Manager Name Role Phone LOS ALONZO Primary Care Provider [phone] Assessment Encounter Date Assessment Date Assessment LastModified [...] Orders finasteride 5 mg tablet 2022 023 [facility], [address] [place], [address], 3 15:22:54 Patient TargetsNo targets recorded. Patient InstructionsNo instructions recorded. Reason for Referral None Reported. Results Created Date Observation Date Name Description Value Unit Range Abnormal Flag Note LastModifiedBy Organization Detail LastModifiedTime 07/03/2006/30/2020 bladd er scan (PROC ) No observ ation record ed. Not Available 2022 18:04:43 07/05/20 20 06/30/2020 bladd er scan (PROC ) No observ ation record ed. Not Available 2022 18:04:43 Result Notes None recorded. Procedures Surgical History Date Name Laterality Status Provider Name and Address Organization Details Recorded Time 3 Bladder Scan completed Isabel Contrerasniisherri [facility] 07/25/2023 15:06:22 0 Flow Rate / Uroflow completed Jose Churchill MD [address] [place] [address],[address], [address], [facility] 06/30/2020 14:56:15 0 Bladder Scan completed Jose Churchill MD [address] [place] [address],[facility] [address], [place], [address], [facility] 06/30/2020 14:56:08 Imaging Results Imaging Date Name Status LastModified by Organiz ation Details LastModified Time 06/30/2020 bladder scan (PROC) completed [employer] Information not available 07/25/2023 18:04:43 06/30/2020 bladder scan (PROC) completed [employer] Information not available 07/25/2023 18:04:43 Procedure Notes None recorded. Medical Equipment None Reported. Allergies Allergen ID Allergen Name Allergen Category Reaction Reaction Severity Criticality Documentation Date Start Date Code Code System Note Provider Name and Address Organization Details Recorded Time 887041 Substance with sulfonami de structure and antibacte rial mechanism of action (substanc e) medicatio n Not available Not available Not available 06/30/2020 27988 [id number] SNOMED Turner Leija [facility] 0 14:39:27 Medications Name Sig [...] Not Available Not Available No t Available [employer] Tuberculin Safety Syringe 1 mL 28 gauge [...] Updated DateTime 06/30/2020 177.8 cm 20.1 kg/m2 76294.93 g Turner Leija [facility] 06/30/2020 14:38:39 Date Recorded Body height Body mass index (BMI) Body weight Provider Name and Address Organization Details Last Updated DateTime 07/25/2023 180.34 cm 23.2 kg/m2 39999.33 g Isabel Cash [facility] 07/25/2023 15:04:16 Social History Question Answer Notes LastModified by Organizat ion Details LastModified Time Tobacco Smoking Status Current Every Day Smoker Turner Leija [facility] 06/30/2020 14:40:38 What Is Your [...] Tobacco? 25 Information not available 06/30/2020 Sex: Unknown Functional Status None recorded. Mental Status None recorded. Family History Relationship Description Onset Age of this Age Resolved Age Notes Father Family history of malignant neoplasm Father Family history of Hypertension Medical History Condition Response Diabetes N Sexually Transmitted Infection N Bleeding Disorder N Other N High Blood Pressure Y Kidney Stones N Cancer N Depression Y Lung Disease N High Cholesterol N GERD/Acid Reflux N Heart Disease N Immunizations Vaccine Type Date Status Provider Name and Address Organization Details Recorded Time zoster recombinant 12/16/2019 completed Isabel harper [facility] 07/25/2023 15:03:35 zoster recombinant 10/17/2019 completed Isabel harper [facility] 07/25/2023 15:03:35 COVID-19, mRNA, LNP-S, PF, 100 mcg/0.5mL dose or 50 mcg/0.25mL dose 03/07/2022 don harper [facility] 07/25/2023 15:03:35 COVID-19, mRNA, LNP-S, PF, 100 mcg/0.5mL dose or 50 mcg/0.25mL dose 09/05/2021 don harper [facility] 07/25/2023 15:03:35 COVID-19, mRNA, LNP-S, PF, 30 mcg/0.3 mL dose 01/01/2021 [facility] 07/25/2023 15:03:35 COVID-19, mRNA, LNP-S, PF, 30 mcg/0.3 mL dose 01/22/2021 don harper [facility] 07/25/2023 15:03:35 pneumococcal polysaccharide PPV23 11/19/2021 don harper [facility] 07/25/2023 15:03:35 pneumococcal polysaccharide PPV23 08/23/2015 don harper [facility] 07/25/2023 15:03:35 Tdap 12/09/2018 completed Isabel harper, [facility] 07/25/2023 15:03:35 Tdap 03/12/2012 completed Isabel harper, [facility] 07/25/2023 15:03:35 Novel [id number], all formulations 09/20/2009 completed Isabel harper, [facility] 07/25/2023 15:03:35 Influenza, split virus, trivalent, PF 09/07/2012 completed Isabel Cash null, [facility] 07/25/2023 15:03:35 Influenza, split virus, trivalent, PF 09/20/2009 completed Isabel harper, [facility] 07/25/2023 15:03:35 Td (adult), 2 Lf tetanus toxoid, preservative free, adsorbed 11/19/2003 completed Isabel harper, [facility] 07/25/2023 15:03:35 Influenza, split virus, quadrivalent, PF 07/27/2020 completed Isabel harper, [facility] 07/25/2023 15:03:35 Influenza, split virus, quadrivalent, PF 08/07/2021 completed Isabel harper, [facility] 07/25/2023 15:03:35 Influenza, split virus, quadrivalent, PF 08/23/2015 completed Isabel harper, [facility] 07/25/2023 15:03:35 Influenza, split virus, quadrivalent, PF 09/13/2019 completed Isabel harper, [facility] 07/25/2023 15:03:35 Influenza, split virus, quadrivalent, PF 10/10/2018 completed Isabel harper, [facility] 07/25/2023 15:03:35 Past Encounters Encounter ID Performer Location Encounter Start Date Encounter Closed Date Diagnosis/Indication Diagnosis SNOMED-CT Code [id number] Turner MOSLEY_Maddy [address] [place] [id number] 06/30/2020 14:19:32 07/03/2020 03:34:19 Urinary incontinence [id number] MD MELANY Gonzales_Maddy [address] [place]aleb [place] [id number] 07/25/2023 14:46:29 07/31/2023 12:17:11 Urinary incontinence [id number] Nocturia [id number] Health Concerns Section Related Observation LastModified by Organization Detai ls LastModified Time None Recorded Concern Status LastModified by Organization Details LastModified Time None Recorded Advance Directives Directive None Recorded Payers Encounter Date Sequence Insurance Name Policy Number Policy Rebolledo Covered Member ID Rebolledo Member ID Guarantor Name 06/30/2020 1 [place] [employer] [facility] Jed Alamo [id number] Jed Alamo 06/30/2020 [address] [id number] Jed Alamo [id number] Jed Alamo 07/25/2023 1 [place] [employer] [facility] Jed Alamo [id number] Jed Alamo 07/25/[address] [facility] [id number] Jed Alamo [id number] Jed Alamo Notes Date Note Type Note [...] with his current urinary pattern. Turner harper [facility] 07/03/2020 10:35:42 07/25/2023 text/html HPI Notes: [...] little more improvement. Jose Churchill MD [address] [facility] [address], [place], [address], [facility] 07/25/2023 18:06:27
== END 2024-06-13 17:09 | disposition home or self-care (01) ==
LOC: AMB 06-16 04:48
PROVIDERS: Visit Provider Family Medicine
DX: R55 Syncope and collapse (principal); K92.1 Melena
CPT/HCPCS: A0425; A0427